=== PATIENT | female | born 1965 | race Caucasian/White ===

== ENCOUNTER → 2018-02-25 21:59 | Outpatient (CLI) | payer OTHER, SELFPAY ==
[2018-01-23 17:47] VITALS: BMI 24.7
[2018-03-03 09:53] LABS: HPV APTIMA, High Risk Positive (Negative)
--- OUTSIDE RECORDS SUMMARY | 2018-04-23 04:48 | XMS RPT_ITS | Clinical Summary ---
:1965 Author Organization [facility], [facility] Address [address] [place] [id number] Phone Care Team Providers Name Role Phone Iris Alexander Unavailable Unavailable Conditions or Problems Problem Name Problem Onset Status Entry Provider Comment Standard Annotate Code Date Date Description Cough, 18654758 Active Vignesh Joseph Chronic cough chronic (SNOMED 06/14 06/[address]) Edema 775074664 Active Vignesh Joseph Edema (SNOMED 06/14 06/[address]) High risk 890410858 Resolved Fabián A Long-term drug meds long (SNOMED 06/03 06/03 Sara therapy term use CT) DO High risk 753163457 Removed Fabián A Long-term drug meds long (SNOMED 06/03 06/03 Sara therapy term use CT) DO 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 Screening for 452319486 Active Fabián A Screening for breast cancer (SNOMED Sara malignant CT) DO neoplasm of breast Hypothyroidis 87556113 Active Fabián A Hypothyroidism m (SNOMED 10/20 10/[address]) DO Systemic 12845523 Active Fabián A Systemic lupus lupus (SNOMED 10/20 10/[address]) DO Medications Medication Instructions Start Stop Generic Name NDC Provider Date Date FLOVENT HFA 2 puffs twice FLUTICASONE 16473797132 Sia 44 MCG/ACT daily /20 PROPIONATE HFA S Page AERO HORSE WRANGLER BREO ELLIPTA One puff INH every FLUTICASONE 68951565449 Vignesh Joseph 200-25 FUROATE-VILANTEROL Mk MCG/INH AEPB PREDNISONE 20 Take 3 tablets by PREDNISONE 72972617757 Vignesh W MG TABS mouth daily for 06/19 Mk days. SYNTHROID 75 daily LEVOTHYROXINE 65736858815 Fabián A MCG TABS /23 SODIUM Sara DO PLAQUENIL 200 daily HYDROXYCHLOROQUINE 35454741396 Fabián A MG TABS /23 SULFATE Sara DO PLAQUENIL 200 daily HYDROXYCHLOROQUINE 20642612422 Iris L MG TABS /23 05/31 SULFATE [place] FLUCONAZOLE One tab; july 2016 FLUCONAZOLE 59866864267 Iris L 150 MG TABS repeat in 3 [place] if needed FLUCONAZOLE One tab; july 2016 FLUCONAZOLE 84284577002 Shelly A 150 MG TABS repeat in 3 06/14 Yensho [facility] if needed PREDNISONE 10 Two tabs daily for PREDNISONE 11365379717 Iris L MG TABS one week, then [place] tab daily for one week, then 1/2 tab daily PREDNISONE 10 Two tabs daily for PREDNISONE 75055296654 Vannessa M MG TABS one week, then 09/18 Shun tab daily for one week, then 1/2 tab daily FLOVENT HFA FLUTICASONE 72354224938 Iris L 44 MCG/ACT /20 PROPIONATE HFA Alvord AERO VITAMIN D3 600 mg daily CHOLECALCIFEROL 86938979642 Fabián A CAPS /23 CAPS Sara DO DOCUSATE daily DOCUSATE SODIUM 30533815792 Fabián A SODIUM 100 MG /23 Sara TABS DO B COMPLEX daily B COMPLEX VITAMINS 73179854769 Fabián A CAPS /23 Sara DO VIACTIV daily CALCIUM-VITAMIN 05766293111 Fabián A 500-500- D-VITAMIN K Sara MG-UNT-MCG DO CHEW VIACTIV daily CALCIUM-VITAMIN 96753669739 Iris L 500-500-40 /05/31 D-VITAMIN K [place] MG-UNT-MCG CHEW CALCIUM 50 mg daily CALCIUM 24704032913 Fabián A CITRATE-VITAM CITRATE-VITAMIN D Sara IN D3 LIQD LIQD DO CALCIUM 50 mg daily CALCIUM 09874550497 Iris L CITRATE-VITAM /23 05/31 CITRATE-VITAMIN D [place] IN D3 LIQD LIQD FISH OIL CAPS 3,000 mg daily OMEGA-3 FATTY ACIDS 11352226193 Fabián A /23 CAPS Sara DO FISH OIL CAPS 3,000 mg daily OMEGA-3 FATTY ACIDS 61681401945 Iris L /05/31 CAPS [place] IBUPROFEN 800 mg 1-2 daily IBUPROFEN TABS 94379005887 Fabián A TABS as needed Sara DO IBUPROFEN 800 mg 1-2 daily IBUPROFEN TABS 97286289516 Iris L TABS as needed 05/31 [place] PYRIDIUM TABS as needed PHENAZOPYRIDINE HCL 77174135603 Fabián A / TABS Sara DO PYRIDIUM TABS as needed PHENAZOPYRIDINE HCL 48442618849 Iris L /05/31 TABS [place] CYSTEX TABS as needed METHENAMINE-SODIUM 57367947302 Fabián A SALICYLATE TABS Sara DO CYSTEX TABS as needed METHENAMINE-SODIUM 50400011548 Iris L /23 05/31 SALICYLATE TABS [place] FOLIC ACID daily FOLIC ACID 20157351995 Fabián A 800 MCG TABS / Sara DO VITAMIN D3 daily CHOLECALCIFEROL 18745964250 Iris L 1000 UNIT / [place] CAPS DOCUSATE One cap daily DOCUSATE CALCIUM 72778193196 Iris L CALCIUM 240 /21 [place] MG CAPS VITAMIN B-12 daily CYANOCOBALAMIN 74394564198 Iris L 500 MCG TABS / [place] BORAGE OIL One cap daily BORAGE (BORAGO 47504517294 Iris L 1000 MG CAPS / OFFICINALIS) [place] CALCIUM daily CALCIUM ASCORBATE 29712781760 Iris L ASCORBATE 500 /21 [place] MG TABS KELP TABS 41 mg daily KELP TABS 77560815421 Iris L /21 [place] MAGNESIUM One cap daily MAGNESIUM OXIDE 76371294080 Iris L OXIDE 400 MG /21 [place] CAPS OMEGA-3 CAPS docosahexaenoic DOCOSAHEXAENOIC 21471528705 Iris Paige acid 120mg/ ACID-EPA [facility] Eicosapentaenoic acid 180mg [facility] GLUCOSAMINE-C 1100mg daily GLUCOSAMINE-CHONDRO 02167317465 Iris Paige HONDROITIN-MS ITIN-MSM CAPS Alvord M CAPS Medications Administered No information available. Allergies, Adverse Reactions, Alerts Allergy Name Reaction Description Start Date Severity Status Provider PLAQUENIL Toxic level in her body. Critical Active Fabián Milvia Ruiz DO Results Date Name Value Unit Range Flag Description Lab Report: (P) Urinalysis, Complete SPEC GR URIN 1.010 1.002-1.030 specific gravity, urine Replaced Document: (P) CBC W/Diff, Automated ABS LYMPHOCY 1.76 X10 3/UL 10*3/uL 0.83-4.51 Absolute Lymphocytes ABS PMNS 6.5 X10 3/UL {Cells}/uL 2.0-7.7 Absolute Neutrophil count Lab Report: Comprehensive Metabolic Profil ANION GAP 6 5-15 anion gap, serum CO2 30.0 mmol/L 21.0-32.0 carbon dioxide, venous blood CHLORIDE 102 mmol/L 98-107 chloride, serum POTASSIUM 3.7 mmol/L 3.5-5.1 potassium, serum SODIUM 138 mmol/L 136-145 sodium, serum BILI TOTAL 0.60 mg/dL 0.00-4.00 bilirubin, serum, total SGPT (ALT) 25 U/L 12-78 alanine aminotransferase (SGPT), serum ALK PHOS 44 U/L 50-136 LL alkaline phosphatase, serum SGOT (AST) 18 U/L 15-37 aspartate aminotransferase (SGOT), serum CALCIUM 9.2 mg/dL 8.5-10.1 calcium, serum A/G RATIO 1.2 RATIO 0.9-2.4 albumin/globulin ratio, serum GLOBULIN TOT 3.5 g/dL 2.7-4.2 globulins, serum, total ALBUMIN 4.2 g/dL 3.4-5.0 albumin, serum PROTEIN, TOT 7.7 g/dL 6.4-8.2 protein, total, serum BUN/CREAT 12.9 RATIO 10-20 urea nitrogen/creatinine ratio, serum GFRAA 115 mL/min >60 Glomerular Filtration rate GFR EST 95 mL/min >60 estimated glomerular filtration rate CREATININE 0.7 mg/dL 0.6-1.0 creatinine, serum BUN 9 mg/dL 7-18 urea nitrogen, blood GLUCOSE SER 82 mg/dL 70-110 blood glucose Lab Report: CRP CRP SQ < 2.90 0.0-3.0 C Reactive Protein, semiquantitative result Lab Report: Erythrocyte Sed Rate ESR 3 mm/h 0-20 erythrocyte sedimentation rate Replaced Document: (P) Hepatitis ABC Profile ANTI-HBC Negative Negative hepatitis B core antibody, total ANTI-HAV IGM Negative Negative hepatitis A antibody, IgM Pathology Report: Cytology, Body Fluid / CSF CristobalZ-GE-susank SEE PATHOLOGY REPORT GE use only - for [employer] import when terms are not otherwise specified Lab Report: CBC W/Diff, Automated LYMPHCT AUTO 1.52 X10 3/UL 10*3/mm3 0.83-4.51 lymphocyte count, blood, automated ANC 3.9 X10 3/UL 10*3/mm3 2.0-7.7 neutrophil count, blood IMM GRANU % 0.200 % 0.0-0.9 immature granulocytes, percentage of total cells, blood BASOPHIL % 0.3 % 0-1 basophils as percent of blood leukocytes EOSINOPHIL % 0.9 % 0-5 eosinophils as percent of blood leukocytes MONOCYTE % 6.5 % 0-10 monocytes as percent of blood leukocytes LYMPHS % 25.9 % 19-41 lymphocytes as percent of blood leukocytes PMN % 66.2 % 47-70 neutrophils as percent of blood leukocytes MPV 12.0 fL 6.2-12.0 mean platelet volume PLATELETS 205 10*3/mm3 150-450 platelet count RDW-SD 48.6 fL 35.1-43.9 H red blood cell distribution width, size density RDW 13.7 % 11.6-14.6 red blood cell distribution width MCHC RBC 32.5 G/GL g/dL 32-36 mean corpuscular hemoglobin concentration, RBC MCH 31.7 pg 27.0-32.0 mean corpuscular hemoglobin, RBC MCV 97.4 fL 81-99 mean corpuscular volume, RBC HCT 41.2 % 37-47 hematocrit, blood HGB 13.4 g/dL 12.0-15.0 hemoglobin, blood RBC M/UL 4.23 10*6/uL 4.2-5.4 red blood count WBC BLOOD 5.9 10*9/L 4.4-11.0 leukocyte (white blood cells) count, blood Lab Report: ,Serum,hCG Quali. BETA-HCG QL NEGATIVE 0-9 Nonpreg beta HCG, serum, qualitative BETA-HCG QN < 1 mIU/mL m[iU]/mL =>Qualitative beta HCG, serum, quantitative Office Visit: new patient, cough FALLRSKASSES No Fall risk assessment Office Visit: chronic cough MEDS REVIEW Done Documentation of current medications (procedure) ORALTOBACUSE Never Tobacco smoking status NHIS SMOK STATUS Never smoker Tobacco use [facility] Plan of Care Type Date Detail Appointment 01:00 PM Vignesh Terrazas, [address], [address], [place], [address] Pending order Follow Up Appt [address] Chest without contrast Pending order Echo Complete with Color Flow Pending order Follow Up Appt 3 months Pending order Mammogram, Screening, both breasts Pending order *CBC with Differential Pending order *TSH Pending order *CBC with Differential Pending order *CMP Complete Metabolic Panel Pending order X-Ray, Chest, PA & Lateral Pending order Hepatitis Panel Pending order *PREGS - Qualitative, Serum Pending order *CRP - C-Reative Protein Pending order *ASHLEY Pending order *Sedimentation Rate (ESR) Pending order *UAC- Urinalysis, Complete w/ Micro Pending order Mammogram, Screening, both breasts Pending order *CBC with Differential Pending order *TSH Pending order Follow Up Appt 1 year Procedures Code Procedure Name Date Entry Date 3016-3 *TSH 0184-1 *CBC with Differential 0270-1 *ASHLEY 0184-1 *CBC with Differential 0786-1 *CMP Complete Metabolic Panel CPT-35333 X-Ray, Chest, PA & Lateral CPT-33412 Hepatitis Panel 2118-8 *PREGS - Qualitative, Serum 55856-2 *CRP - C-Reative Protein 00212-0 *Sedimentation Rate (ESR) 01571-2 *UAC- Urinalysis, Complete w/ Micro CPT-26812 Mammogram, Screening, both breasts 3016-3 *TSH 0184-1 *CBC with Differential Vital Signs Date Name Value Unit Description BMI (Body Mass Index) 24.87 kg/m2 Body Mass Index [Ratio] Body Temperature 97.5 [degF] temperature E&M BP Diastolic 78 mm[Hg] blood pressure, diastolic - 8462-4 BP Systolic 116 mm[Hg] blood pressure, systolic - 8480-6 Heart Rate 59 /min pulse rate E&M - 8867-4 Height 62 [in_us] height E&M - 8302-2 O2 % BldC Oximetry 98 % oxygen saturation, oximetry Respiratory Rate 18 /min respiratory rate E&M - 9279-1 Weight Measured 136 [lb_av] weight E&M - 3141-9
--- OUTSIDE RECORDS SUMMARY | 2018-04-23 04:49 | XMS RPT_ITS ---
:1965 Author Organization OHIP Care Team Providers Name Role Phone Danilo Ugarte Attending Unavailable Danilo Ugarte Referring Unavailable Fabián Ruiz Primary Care Unavailable Vignesh Terrazas Attending Unavailable Fabián Ruiz Referring Unavailable Fabián Ruiz Primary Care Unavailable Fabián Ruiz Attending Unavailable Fabián Ruiz Referring Unavailable SaraFabián woods Primary Care Unavailable López Villalobos Attending Unavailable Fabián Ruiz Referring Unavailable Danilo Ugarte Attending Unavailable Fabián Ruiz Primary Care Unavailable PROBLEMS PROBLEMS DATE TYPE CONDITION / CODE ATTENDING STATUS SOURCE 02/25/2018 Unknown Z12.4 - Encounter Danilo Ugarte Active [facility] for screening for Community malignant neoplasm Hospital of cervix / Repository Z12.4(ICD-10) 01/25/2018 Unknown B02.9 - Zoster López Villalobos Active [facility] without Community complications / Hospital B02.9(ICD-10) Repository 01/25/2018 Unknown S05.02XA - Injury López Villalobos Active [facility] of conjunctiva and Community corneal abrasion Hospital without foreign Repository body, left eye, initial encounter / S05.02XA(ICD-10) 03/19/2017 Unknown J45.909 - Vignesh Terrazas Active [facility] Unspecified asthma, Community uncomplicated / Hospital J45.909(ICD-10) Repository PROCEDURES PROCEDURES No Procedure Records FoundRESULTS RESULTS CERVICAL Observed: 03/12/2018 Status: F Source: [facility] 3:35 PM [facility] HOSPITAL REPOSITORY Patient: CHASITY NIETO : 1965 (52/F) Acct Num: [id number] Phys: Torito TAYLOR,[facility] Unit Num: [id number] Loc: LABSPEC Specimen: [id number] Received: 03/12/181906 Spec Type: CERV TISSUES 1 TISSUES: A. Uterine cervix, NOS B. Endocervical COMMENT A. Results from immunohistochemistry ([id number]) for surrogate HPV marker (p16) will be reported separately. Case has been reviewed in consultation with Dr. Gtz who concurs with the above diagnosis. IDC:LIZ GROSS DESCRIPTION A - Received in fixative is one container labeled with the patient's name and designated cervical biopsy 6 o'clock. The specimen consists of multiple irregular fragments of light underwood soft tissue that in aggregate measure 1 x 0.5 x 0.1 cm. The specimen is totally submitted in one cassette. B - Received in fixative is one container labeled with the patient's name and designated ECC. The specimen consists of multiple fragments of hemorrhagic mucoid tissue that in aggregate measure 2 x 1.5 x 0.1 cm. The specimen is totally submitted in one cassette. / LIZ:balwinder 03/13/18 TC: 56450 CPT: 40157 x2 HEADER OPERATION: Colposcopy PRE-OP DIAGNOSIS: Pap ASCUS, HPV HR positive 02/25/18 TISSUE SUBMITTED: A - Cervical biopsy 6 o'clock, B - ECC MICROSCOPIC DESCRIPTION Slides are reviewed. MICROSCOPIC DIAGNOSIS A. Cervix at 6 o'clock, biopsy: Focal HPV change, ARIANA I (LSIL) present. Mild chronic inflammation. See comment. B. Endocervix, curettings: Benign superficial endocervix. Detached squamous epithelial cells with focal changes of viral cytopathic effect. AM:balwinder 03/16/18 Signed Mitch Loaiza, 03/17/18 <signature on file> Performed By: #### PCER #### [facility] [address] [place] [address]. [place], [place], [id number] IMMUNOHISTOCHEMISTRY Observed: 03/12/2018 Status: F Source: [place] 12:00 AM [facility] REPOSITORY Patient: CHASITY NIETO : 1965 (52/F) Acct Num: [id number] Phys: Torito TAYLOR,Danilo Unit Num: [id number] Loc: LABSPEC Specimen: [id number] Received: 03/16/181155 Spec Type: IMMUNO TISSUES 1 TISSUES: A. Uterine cervix, NOS SPECIMEN INFORMATION: Tissue Source: A - Cervical biopsy 6 o'clock Clinical Info: ASCUS, HPV HR positive Specimen Number: [id number] CPT code: 44756, 32382 METHODOLOGY: Deparaffinized sections of prefer/formalin-fixed tissue or PAP/DQ stained slides are incubated with monoclonal/polyclonal antibodies/oligonucleotide probes. Localization is made via biotin free immunoperoxidase method. Appropriate controls are performed and reacted as expected. Results on target cell population are indicated in the following table: RESULTS: ANTIBODY / CLONE RESULT Block A P16 (E6H4) positive, focal, patchy Ki-67 (30-9) positive, low, focal These tests were developed and their performance characteristics determined by [facility]. They may not have been cleared or approved by the U.S. Food and Drug Administration. The FDA has determined that such clearance or approval is not necessary. INTERPRETATION: A. Cervix, 6 o'clock, biopsy: Consistent with mild squamous dysplasia, ARIANA I ( LSIL). AM:balwinder 03/17/18 PHYSICIAN AND INSTITUTION [address] [address] Signed Mitch DO Fadia 03/17/18 <signature on file> Performed By: #### PIMM #### [facility] [address] [place], [address] SCREENING MAMM (CAD), Observed: 02/28/2018 Status: F Source: [place] BILAT 9:01 AM [facility] HOSPITAL REPOSITORY [facility] Imaging Services [address] [place] [address] SCREENING MAMM (CAD), BILAT MR#: [id number] Acct: [id number] Name: CHASITY NIETO Rep #: [id number] : 1965 F 52 From: Chapo Arias MD PCP: Fabián Ruiz DO Status: REG CLI Study: SCREENING MAMM (CAD), BILAT Date of Exam: 02/28/18 Exam# [id number] Ordering Dr: Fabián Ruiz DO MAMMOGRAPHY - BILATERAL SCREENING REASON FOR EXAM: Female, 52 years old. Routine annual screening examination. PERTINENT HISTORY: Non-contributory. TECHNIQUE: Digital bilateral breast patrick (3D mammographic acquisition) in the CC and MLO projections. 2-D mediolateral oblique (MLO) and craniocaudad (CC) views of both breasts were obtained. CAD: Full Field Digital Mammography with Computer Added Detection was performed. COMPARISON: Comparison is made with prior study dated October 18, 2016 and August 23, 2015. FINDINGS: Breast Composition: There are scattered areas of fibroglandular density. There are no dominant masses or suspicious calcifications. No other significant abnormalities are identified. There has been no significant change since the prior study. BI/SCREENING MAMM (CAD), BILAT IMPRESSION: Stable bilateral screening mammogram. Yearly follow-up mammogram recommended. (A) ASSESSMENT CATEGORY: BIRADS Category 1: Negative. A letter regarding these results will be sent to the patient by the facility within 30 days. Approximately 10% of breast cancers are not detected by mammography. A normal mammogram should not delay biopsy of a clinically suspicious abnormality. [id number] Electronically Signed: Chapo Arias MD at 9:25 EST Tel [phone], Service support , CC: Fabián Ruiz DO Overhead Line Worker: Signed PAP IG HPV HR Collected: 02/25/2018 Status: F Source: [place] KNAPP 4:00 PM [facility] REPOSITORY Order Comment: CYTOLOGY INFORMATION: - CLINICAL INFORMATION: - DATE LMP/MENOPAUSE: 12/18/17 LMP - COLLECTION VIAL: Thin Prep Vial - REGIONAL FACILITIES SPECIALIST SOURCE: CERVICAL/ENDOCERVICAL - COLLECTION TECHNIQUE: BRUSH/SPATULA Specimen Comment: [id number] Specimen Comment: Source.............Cervix;Endocervix Specimen Comment: LMP / Prev Treat...[id number] Specimen Comment: No. of containers..01 ThinPrep Vial TYPE CODE TESTS RESULT OUT OF REFERENCE UNITS RANGE LAB L7400.0800 . High DIAGN Comment Result Comment: EPITHELIAL CELL ABNORMALITY. ATYPICAL SQUAMOUS CELLS OF UNDETERMINED SIGNIFICANCE. LAB L7400.0900 . Normal ADEQ Comment Result Comment: Satisfactory for evaluation. Endocervical and/or squamous metaplastic cells (endocervical component) are present. LAB L7400.1400 . Normal PERFORM Comment Result Comment: Nalini Hickey, Electronics Engineering Manager (ASCP) LAB L7400.1700 . Normal SIGN Comment Result Comment: Valeria Carpenter MD, Pathologist LAB L7400.1720 . Normal Path prov. Comment ICD9 Result Comment: R87.610 LAB L7400.2575 . Normal TEST METHOD Comment Result Comment: This liquid based ThinPrep(R) pap test was screened with the use of an image guided system. LAB L7400.2600 . Normal . COMM LAB L7400.2700 . Normal PAPSMR Comment Result Comment: The Pap smear is a screening test designed to aid in the detection of premalignant and malignant conditions of the uterine cervix. It is not a diagnostic procedure and should not be used as the sole means of detecting cervical cancer. Both false-positive and false-negative reports do occur. LAB L7400.2760 Negative High HPV APTIMA, HR Positive Result Comment: This test detects fourteen high-risk HPV types (16/18/31/33/35/39/45/ 51/52/56/58/59/66/68) without differentiation. Performed at: - [facility] [id number] Dance Entertainer: Rukhsana Miller MD, Phone: [phone] Performed at: = - [facility] [address] [id number] Dance Entertainer: Rukhsana Miller MD, Phone: [phone] Performed By: #### L7400.0377 #### [facility] (refer to report for specific site) refer to report for address and phone number URGENT CARE VISIT Observed: 01/23/2018 Status: F Source: [facility] REPORT 6:29 PM [facility] REPOSITORY [facility] [address] [place] [address] OFFICE VISIT Date of Service: 01/23/18 MR#: [id number] Acct: [id number] Name: CHASITY NIETO Rep #: [id number] : 1965 Provider: López AUGUSTE Age/Sex: 52/F Location: [facility] Status: Signed Intake Vital Signs01/23/18 Height 5 ft 2 in Intake Visit Reasons: L EYE Allergies hydroxychloroquine [From Plaquenil] Allergy (Mild, Verified 01/23/18 17:48) Medications Levothyroxine [Synthroid] 75 mcg PO DAILY 02/08/15 [History Confirmed 01/23/18] acyclovir 800 mg tablet 800 mg PO Q4H 7 Days #42 tab 01/23/18 [Rx Confirmed 01/23/18] sulfacetamide sodium 10 % eye drops 1 drp OPHTHALMIC (EYE) Q4H 7 Days #15 ml 01/23/18 [Rx Confirmed 01/23/18] PFSH Medical History Lupus (Chronic) Asthma (Chronic) Annette's thyroiditis (Chronic) Fibromyalgia (Chronic) Systemic lupus erythematosus (Chronic) Hypothyroidism (Chronic) Macular degeneration (Chronic) Edema (Chronic) Chronic cough (Chronic) Anemia (Acute) Heart murmur (Acute) Surgical History History of endoscopy (Resolved) History of tubal ligation (Resolved) History of tonsillectomy and adenoidectomy (Resolved) history of cystoscopy/dilation (Resolved) History of dilatation and curettage (Acute) Family History Father Heart disease Hypertension Thyroid disorder Brother Hypertension Thyroid disorder High cholesterol Mother Cancer CLL Social History Smoking Status: Never smoker second hand exposure: No alcohol intake: current alcohol intake frequency: 0-2 drinks per day Alcohol type: wine, beer substance use type: does not use caffeine: Yes (4/day) what type of physical activity do you participate in: bicycling, aerobics frequency: daily HPI HPI Details: CHASITY NIETO, is a 52 F who presents to the office today for complaint of a stye to the left eye which has over the past 12 hours increasingly become irritated with itching and irritation to the left side of the face as well starting today. Patient states that the stye appeared approximately 3-4 days ago which she has been treating with warm compresses to no relief. She states that today her upper eyelid has become more red and swollen as well as having developed irritation to the left side of her face just lateral to her left eye. 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 She does have a pertinent past medical history of lupus as well as Annette's thyroiditis and is therefore immunocompromised. She denies any vision change or loss however does state that her eyes irritated. She reports that she has been rubbing her eye quite a bit today however denies any feeling of foreign body. She has not noticed any blistering or open areas to the left side of her face. She denies any hearing change, loss or numbness/tingling to the left side of her face. No other associated symptoms or alleviating/aggravating factors. ROS Const Constitutional: No chills, fever(s), weakness, abnormal sleep pattern, fatigue or headache(s) Eyes Eyes: Positive for eye pain (Left upper eyelid irritation due to stye.); no change in vision, blurry vision, discharge, spots in vision or visual disturbances ENT ENT: No ear pain, ear discharge, abnormal hearing, hearing loss, nasal congestion, nasal discharge, sore throat or headache(s) Resp Respiratory: No shortness of breath or chest congestion Cardio Cardiology: No chest pain at rest, chest pain with exertion or shortness of breath Musc Musculoskeletal: No numbness or tingling Skin Skin: Positive for itching and redness; no wounds or lesions Neuro Neurology: No weakness, dizziness, abnormal speech, abnormal movements, unsteady gait/balance, loss of vision, behavioral changes, confusion, visual disturbances, abnormal hearing, headache(s), numbness or tingling Psych Psychiatric: No abnormal sleep pattern, No behavioral changes, No confusion Endo Endocrine: No fatigue Aller/Imm Allergy/Immunologic: Positive for itchy eyes Exam Const General: cooperative, healthy appearing [facility] Head: normocephalic, atraumatic Ears: hearing grossly normal bilaterally Face and sinus: face symmetric Eyes General: appearance normal, both eyes and all related structures Visual Centeno: normal visual centeno by confrontation Alignment and Position: alignment normal Periorbital: periorbital findings normal Eyelids: eyelids normal Conjunctivae: conjunctivae normal Cornea: corneas abnormal on the left fluorescein used, abrasion linear (Linear corneal abrasion just inferior to the pupil over middle iris) and other (No dendritic or other abnormal appearances of the eye with fluorescein stain other than linear abrasion) Pupils: PERRL EOM: EOM intact bilaterally Direct ophthalmoscopy: normal light reflex Resp Effort AND Inspection: normal respiratory effort Auscultation: Bilateral: Clear to Auscultation Cardio Rate: regular rate Rhythm: regular rhythm Heart Sounds: S1 normal, S2 normal Skin General: no rashes or lesions noted Neuro General: alert, awake, oriented x3, gait normal Cranial Nerves: CN's II-XI intact bilaterally Psych Appearance: grossly normal Mental Status: mental status grossly normal Affect: normal affect Assessment AND Plan Problems 1. Herpes zoster without complication B02.9 Status Acute 2. Abrasion of left cornea, initial encounter S05.02XA Status Acute Plan Acyclovir 800 mg 5 times daily times 7 days as well as Bleph- 10 as prescribed today. Patient advised to continue with her appointment that is already scheduled with her nail kegger early next week for further evaluation of her corneal abrasion as well as monitoring for possible zoster ophthalmicus. Patient advised to use a warm compress to the left eye as well as advised of potential red flags and signs of zoster ophthalmicus and when appropriate to report to the ED. Patient verbalized understanding and agreement with all the above. Medications New: acyclovir while awake; give 5 doses in 24 800 mg PO Q4H 7 days 42 tabs 0RF hours Coding Level of Care Code Off vis,est,level 4 Diagnoses Herpes zoster without complication B02.9 Herpes zoster complications: without complications Abrasion of left cornea, initial encounter S05.02XA Encounter type: initial encounter 01/23/18 1829 <Electronically signed by López AUGUSTE> Date López AUGUSTE Cosigner Signature: Date (if applicable) CC: PULMONARY VISIT REPORT Observed: 03/19/2017 Status: F Source: [place] 4:20 PM [facility] REPOSITORY [facility] [address] [place] [address] OFFICE VISIT Date of Service: 03/19/17 MR#: [id number] Acct: [id number] Name: CHASITY NIETO Rep #: [id number] : 1965 Provider: Vignesh Terrazas MD Age/Sex: 51/F Location: [facility] Status: Signed Assessment AND Plan 1. Moderate persistent asthma without complication J45.40; J45.40; J45.40 Plan Clinical suspicion for dust allergy leading to exacerbation of asthma type symptoms. This is very similar to previous type symptoms that occurred last winter. After review of the risks, benefits and alternatives, patient will be stepped up in therapy to a combination inhaler with Breo. Signs and symptoms of exacerbation were reviewed in detail. Discontinue Flovent. Initiate Breo. 2. Chronic cough R05 Plan Patient has noted significant worsening in cough over the last 2-3 weeks. Patient may have had some exacerbation with D AND C secondary to mechanical stimulation leading to bronchospasm. Patient will be stepped up in therapy as mentioned in the asthma plan. Step up in asthma therapy. Medications New: albuterol sulfate HFA 90 mcg/actuation (Vento2 puffs Inhalation Q6H shortness of breath o guanaco HFA) administer with spacer r wheezing 3. Systemic lupus erythematosus with glomerular disease, unspecified SLE type M32.14; M32.14; M32.14; M32.14; M32.14 Plan Patient currently being monitored clinically. Patient is not on any immunosuppression. Patient was on Plaquenil in the past, but this had to be discontinued secondary to eye toxicity. Patient is also been used on prednisone in the past. Last year, patient had a CT scan of the chest to evaluate for interstitial lung disease, which was negative. Pulmonary function test in the past was consistent with asthma and showed no restriction. After review of the risks, benefits alternatives, patient does not believe that testing needs to be repeated at this time. I agree with her assessment. Continue to monitor clinically. Plan Detail Other Medications New: fluticasone-vilanterol 200-25 mcg/dose (Breo Ellipta) aft1 inh Inhalation Q24H J45.909 er inhalation, rinse mouth with water and spit out; do not s wallow Discontinued: fluticasone 44 mcg/actuation Discontinued Reason: Order Change2 puffs Inhalation BID d Follow Up 6 Months (A) HPI 6 M FU: Chief Complaint: Cough Details: Blood or on my last patient is a 51-year-old female, currently in the care of Dr. Ruiz, who presents for evaluation secondary to chronic cough. Since last visit, patient denies any ER visits or prednisone burst. Patient does report that she had a D AND C but did require general anesthesia. Patient states that after surgery she noted increased cough. Patient has initiated Zyrtec with significant improvement in cough, but still coughs on a daily basis. Patient reports exacerbating factors as physical activity and dry/cold air. Patient states this is significantly similar to her symptomatology last winter. Patient denies any concomitant sinus congestion or postnasal drip. Patient has been reporting hoarseness, typically at the end of the day. Patient attributes this to her cough, but otherwise denies any other complications outside of a minor sore throat. Patient has used [id number] medications with no improvement. Patient estimates that she has been using her albuterol rescue 2-3 times per week recently, which is a significant increase from her baseline. Patient reported that over the summer she was doing well and able to resume her normal exercise routine. Intake Vital Signs03/19/17 Height 5 ft 2 in 03/19/17 Weight: 61.235 kg Intake Visit Reasons: 6 M FU Accompanied by: Self Allergies hydroxychloroquine [From Plaquenil] Allergy (Mild, Verified 03/19/17 12:43) Medications Levothyroxine [Synthroid] 75 mcg PO DAILY 02/08/15 [History Confirmed 03/19/17] Multivitamins,Therapeutic [Multivitamin] 1 tab PO DAILY 02/08/15 [History Confirmed 03/19/17] Vitamin B Complex 1 ea PO DAILY 02/08/15 [History Confirmed 03/19/17] Ascorbic Acid [Vitamin C] 500 mg PO DAILY@0800 01/15/17 [History Confirmed 03/19/17] Cholecalciferol (Vitamin D3) [Vitamin D3] 1,000 unit PO DAILY 01/15/17 [History Confirmed 03/19/17] Hydrocodone/Acetaminophen [[place] 5-325 Tablet] 1 - 2 ea PO Q4H PRN PRN #10 tab 01/20/17 [Rx Confirmed 03/19/17] antiarthritic combination no.2 900 mg tablet mg PO 03/15/17 [History Confirmed 03/15/17] docusate calcium 240 mg capsule 240 mg PO QHS 03/15/17 [History Confirmed 03/15/17] fish oil 400 mg-flaxseed 400 mg-prim,blk department store general manager,borag oils 200 mg capsule cap PO 03/15/17 [History Confirmed 03/15/17] iodine (kelp) tablet tab PO 03/15/17 [History Confirmed 03/15/17] magnesium oxide 400 mg capsule 400 mg PO QDAY cap 03/15/17 [History Confirmed 03/15/17] albuterol sulfate HFA 90 mcg/actuation aerosol inhaler 2 puff INHALATION Q6H #8 g 03/19/17 [Rx Confirmed 03/19/17] fluticasone 200 mcg-vilanterol 25 mcg/dose powder for inhalation 1 inh INHALATION Q24H #28 ea 03/19/17 [Rx Confirmed 03/19/17] Review of Systems Const CONSTITUTIONAL: Positive fatigue; negative anorexia, body ache, chills, daytime sleepiness, fever(s), night sweats, oral thrush, stops breathing during sleep, weight loss, sleeping in chair, weight loss, weight gain, frequent colds, seasonal allergies, other, headache(s) or orthopnea EETM Ear Nose Throat Mouth: Positive hearing normal and sore throat; negative hard of hearing, hoarseness, dry mouth in morning, change in vision, itchy eyes, eye pain, swallowing Difficulty, ear pain, nose bleed, headache(s), mouth pain, nasal congestion, nasal discharge, post nasal drip, sinus pain, sinus pressure or other Cardio Cardiovascular: Negative chest pain, chest pain at rest, chest pain with activity, irregular heart rhythm, edema, shortness of breath when lying down, palpitations, murmur or other Resp Respiratory: Positive chest congestion, cough and inhalers; negative as per HPI, shortness of breath, pain with cough, wheezing, chest tightness, pain on inspiration, increase use of rescue inhalers, snoring, apnea or other Gastro Gastrointestional: Negative bloody stools, change in appetite, difficulty swallowing, reflux, hematemesis, melena stool, loose stool, constipation or other Genitourinary: Negative blood in urine, nocturia, pain with urination or other Musc Musculoskeletal: Negative body pain, back pain, neck pain or other Skin/Breast Skin/Breast: Negative dry skin, itching, rash, unusual bruising, breast lump or other Neuro Neurological: Negative restless legs, confusion, weakness or other Psych Psychocological: Negative abnormal sleep pattern, anxiety, thoughts of hurting self/others, hopelessness or other Lymph Lymphatic: Negative easy bleeding, easy bruising, swollen lymph nodes or other Exam Const Constitutional: Positive conversant, cooperative, in no acute respiratory distress, healthy appearing, well developed, well nourished and good hygiene Head Head: Positive normocephalic and atraumatic; negative cyanosis of lips/distal nose, microcephalic, macrocephalic, frontal sinus tenderness or maxillary sinus tenderness Eyes Eye: Positive clear conjunctiva; negative nystagmus, scleral abnormality or cataract present Ears Ear: Positive hearing normal and external ears normal; negative hard of hearing Nose Nose: Positive external nose normal, nasal polyp and no nasal discharge; negative epistaxis Mouth Mouth: Positive oral mucosae normal, no lesions and good dentition; negative post nasal drip or oral thrush present Mallampati Score: I: Mallampati Score Neck Neck: Positive normal visual inspection and trachea midline; negative lymphadenopathy or JVD Chest Wall Chest: Positive normal inspection of the chest and symmetric chest movement; negative increased A/P diameter, crepitus or tenderness Resp lung sounds: Positive clear to auscultation, good air exchange and wheeze present on forced exhalation; negative wheezes, rhonchi or rales Cardio Cardiac: Positive regular rate, regular rhythm, S1 normal and S2 normal; negative murmur, rub or gallop GI GI: Positive normal to inspection and normal bowel sounds; negative distended or ascites Genitourinary: Positive deferred Musc Musculoskeletal: Positive steady gait; negative using an assistive device for ambulation, kyphosis or scoliosis Skin Pulmonary Skin Exam: Positive intact; negative rash, lesion or ulcers Pulses Pulse: Positive radial pulses present Extremities Extremities: Positive capillary refill normal; negative clubbing, cyanosis or edema Neuro Neurologic: Positive conversant, no focal neuro deficits, cooperative, normal cognition, normal coordination, normal concentration and understands questions Lymph Lymphatic: Negative lymphadenopathy, tenderness or cervical adenopathy Psych Appearance: Positive grossly normal Mental Status: Positive mental status grossly normal Mood: Positive congruent mood Affect: Positive normal affect 03/19/17 1620 <Electronically signed by Vignesh Terrazas MD> Date Vignesh Terrazas MD Cosigner Signature: Date (if applicable) CC: Fabián Ruiz DO ALLERGIES ALLERGIES DATE TYPE / CODE NAME / CODE REACTION SEVERITY SOURCE 01/23/2018 Drug hydroxychlor [place] [facility] Allergy/4160 oquine/F0060 [facility] 87221(SNOMED 20447(RXNORM Repository CT) ) ENCOUNTERS ENCOUNTERS ADMIT/DISCHARGE ACCOUNT ADMITTING ENCOUNTER LOCATION SOURCE NUMBER CLASS 03/12/2018 [id number] [facility] 9 [facility] ing:LABSPEC Repository 02/28/2018 [id number] Ambulatory Ambika [place] 7 [facility] ing:OPBI Repository 02/25/2018 [id number] Ambulatory [place] Ambika 7 [facility] ing:LABSPEC Repository 01/23/2018/ [id number] Ambulatory BMSBuilding:B Ambika 8 8 MS.NOW [facility] Repository 03/19/2017/ [id number] Ambulatory BMSBuilding:B [place] 7 5 MS.[facility] [place] [place] Repository PAYERS PAYERS ENCOUNTER GUARANTOR PAYER SUBSCRIBER SOURCE 03/12/2018 CHASITY J [id number] Primary CHASITY J KINGDOB: [place] Insurance:MEDICAL [id number] [address]Nou: (330) Number: Repository [phone] () [id number] Date:7532-65-25XZ [address] [place], [place] [address]WP: 03/12/2018 Secondary NOT GIVENUNK [place] Insurance:SELF PAY [facility] ([place], [place]) Number: Effective Repository Date:2018-03-12 02/28/2018 CHASITY J [id number] Primary CHASITY J KINGDOB: [place] Insurance:MEDICAL [id number] [address]Xsz: (330) Number: Repository [phone] () [id number] Date:1814[place]30-[place] [address]WP: 02/28/2018 Secondary NOT GIVENUNK Ambika Insurance:SELF PAY [facility] ([place], [place]) Number: Effective Repository Date:2017-12-24 02/25/2018 CHASITY J [id number] Primary CHASITY J KINGDOB: [place] Insurance:MEDICAL [id number] [address]Onk: (330) Number: Repository [phone] () [id number] Date:2468-25-21HO [address] [place], [place] [address]: 02/25/2018 Secondary NOT GIVENUNK Ambika Insurance:SELF PAY [facility] ([place], [place]) Number: Effective Repository Date:2018-02-25 01/23/2018 CHASITY J [id number] Primary CHASITY MORRISB: [place] Insurance:MEDICAL [id number] [facility] [address] [facility] [address]Ekm: 330) Number: Repository [phone] () [id number] Date:1762-92-10HA [address], [place] [address]OL: 01/23/2018 Secondary NOT GIVENUNK [place] Insurance:SELF PAY [facility] ([place], [place]) Number: Effective Repository Date:2018-01-23 03/19/2017 CHASITY [id number] Primary Adis NietoB: [place] Insurance:AETNAPolicy [id number] [facility] [address], Number: [facility] [address]Yuh: (910) [id number] Repository [phone] () Date:9514-29-24BC [address] [place] [address]EP: 03/19/2017 Secondary NOT GIVENUNK [place] Insurance:SELF PAY [facility] ([place], [place]) Number: Effective Repository Date:2017-03-05
--- OUTSIDE RECORDS SUMMARY | 2018-04-23 04:49 | XMS RPT_ITS | Clinical Summary ---
:1965 Author Organization [employer] [facility], [facility] Address [address] [place] [address] Phone Care Team Providers Name Role Phone Shelly Barrera LPN Unavailable Unavailable Conditions or Problems Problem Name Problem Onset Status Entry Provider Comment Standard Annotate Code Date Date Description Cough, 74955134 Active Vignesh Joseph Chronic cough chronic (SNOMED 06/14 06/[address]) Edema 235659927 Active Vignesh W Edema (SNOMED 06/14 06/[address]) High risk 500918496 Resolved Fabián A Long-term drug meds long (SNOMED 06/03 06/03 Sara therapy term use CT) DO High risk 981653631 Removed Fabián A Long-term drug meds long (SNOMED 06/03 06/03 Sara therapy term use CT) DO 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 Screening for 870539773 Active Fabián A Screening for breast cancer (SNOMED Sara malignant CT) DO neoplasm of breast Hypothyroidis 10039969 Active Fabián A Hypothyroidism m (SNOMED 10/20 10/[address]) DO Systemic 59204358 Active Fabián A Systemic lupus lupus (SNOMED 10/20 10/[address]) DO Medications Medication Instructions Start Stop Generic Name NDC Provider Date Date BREO ELLIPTA One puff INH every FLUTICASONE 12254707541 Vignesh Joseph 200-25 FUROATE-VILANTEROL Mk MCG/INH AEPB PREDNISONE 20 Take 3 tablets by PREDNISONE 57792232750 Vignesh W MG TABS mouth daily for 06/19 Mk days. 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 10 Two tabs daily for PREDNISONE 16021599992 Iris L MG TABS one week, then [place] tab daily for one week, then 1/2 tab daily PREDNISONE 10 Two tabs daily for PREDNISONE 52805480231 Vannessa M MG TABS one week, then 09/18 Shun tab daily for one week, then 1/2 tab daily VITAMIN D3 600 mg daily CHOLECALCIFEROL CAPS 75420369412 Fabián A CAPS /23 Sara DO DOCUSATE daily DOCUSATE SODIUM 44324749415 Fabián A SODIUM 100 MG /23 Sara TABS DO B COMPLEX daily B COMPLEX VITAMINS 75211973488 Fabián A CAPS /23 Sara DO VIACTIV daily CALCIUM-VITAMIN 26342219222 Fabián A 500-500- D-VITAMIN K Sara MG-UNT-MCG DO CHEW VIACTIV daily CALCIUM-VITAMIN 72400248155 Iris L 05/31 D-VITAMIN K Benjamin MG-UNT-MCG CHEW CALCIUM 50 mg daily CALCIUM 50590807789 Fabián A CITRATE-VIT CITRATE-VITAMIN D [facility] IN D3 LIQD LIQD DO CALCIUM 50 mg daily CALCIUM 90423018151 Iris L CITRATE-VITAM /23 05/31 CITRATE-VITAMIN D [place] IN D3 LIQD LIQD FISH OIL CAPS 3,000 mg daily OMEGA-3 FATTY ACIDS 29899176378 Fabián A /23 CAPS Sara DO FISH OIL CAPS 3,000 mg daily OMEGA-3 FATTY ACIDS 27168991420 Iris L /05/31 CAPS [place] IBUPROFEN 800 mg 1-2 daily IBUPROFEN TABS 65888877372 Fabián A TABS as needed / Sara DO IBUPROFEN 800 mg 1-2 daily IBUPROFEN TABS 13315795652 Iris L TABS as needed 05/31 [place] PYRIDIUM TABS as needed PHENAZOPYRIDINE HCL 78360333572 Fabián A /23 TABS Sara DO PYRIDIUM TABS as needed PHENAZOPYRIDINE HCL 68836827177 Iris L /05/31 TABS [place] CYSTEX TABS as needed METHENAMINE-SODIUM 77767414501 Fabián A SALICYLATE TABS Sara DO CYSTEX TABS as needed METHENAMINE-SODIUM 90907921931 Iris L /05/31 SALICYLATE TABS [place] FOLIC ACID daily FOLIC ACID 07402510039 Fabián A 800 MCG TABS / Sara DO VITAMIN D3 daily CHOLECALCIFEROL 19145910763 Iris L 1000 UNIT /21 [place] CAPS DOCUSATE One cap daily DOCUSATE CALCIUM 79642554823 Iris L CALCIUM 240 /21 [place] MG CAPS VITAMIN B-12 daily CYANOCOBALAMIN 84657912945 Iris L 500 MCG TABS /21 [place] BORAGE OIL One cap daily BORAGE (BORAGO 31677414620 Iris L 1000 MG CAPS /21 OFFICINALIS) [place] CALCIUM daily CALCIUM ASCORBATE 69767076169 Iris L ASCORBATE 500 /21 [place] MG TABS FLOVENT HFA FLUTICASONE 00761875566 Iris L 44 MCG/ACT /20 PROPIONATE HFA [place] AERO KELP TABS 41 mg daily KELP TABS 30474417228 Iris L /21 [place] MAGNESIUM One cap daily MAGNESIUM OXIDE 65577816028 Iris Paige OXIDE 400 MG /21 [place] CAPS OMEGA-3 CAPS docosahexaenoic DOCOSAHEXAENOIC 95271426973 Iris Paige acid 120mg/ /21 ACID-EPA CAPS [place] Eicosapentaenoic acid 180mg caps GLUCOSAMINE-C 1100mg daily GLUCOSAMINE-CHONDROI 04217442580 Iris Paige HONDROITIN-MS / TIN-MSM CAPS [place] M CAPS Medications Administered No information available. Allergies, Adverse Reactions, Alerts Allergy Name Reaction Description Start Date Severity Status Provider PLAQUENIL Toxic level in her body. Critical Active Fabián Ruiz DO Results Date Name Value Unit [...] Pathology Report: Cytology, Body Fluid / CSF [place] SEE PATHOLOGY REPORT GE use only - [...] serum, quantitative Office Visit: new patient, cough [facility] No Fall risk assessment Office Visit: chronic cough MEDS REVIEW Done Documentation of current medications (procedure) ORALTOBACUSE Never Tobacco smoking status NHIS SMOK STATUS Never smoker Tobacco use [facility] Plan of Care Type Date Detail Appointment 01:00 PM Vignesh Terrazas, [address], [address], [place], [address] Pending order Follow Up Appt 6 months [...] with Differential 0786-1 *CMP Complete Metabolic Panel CPT-32181 X-Ray, Chest, PA & Lateral CPT-61170 Hepatitis Panel 2118-8 *PREGS - Qualitative, Serum 42899-5 *CRP - C-Reative Protein 66394-6 *Sedimentation Rate (ESR) 25432-7 *UAC- Urinalysis, Complete w/ Micro CPT-48262 Mammogram, Screening, both breasts 3016-3 *TSH 0184-1 [...]
--- OUTSIDE RECORDS SUMMARY | 2018-04-23 04:49 | XMS RPT_ITS | Clinical Summary ---
:1965 Author Organization [place] [email or web address] [facility], [facility] Address [address] [place] [address] Phone Care Team Providers Name Role Phone Shelly Barrera LPN Unavailable Unavailable Conditions or Problems Problem Name Problem Onset Status Entry Provider Comment Standard Annotate Code Date Date Description Cough, 37496254 Active Vignesh Joseph Chronic cough chronic (SNOMED 06/14 06/[address]) Edema 515954923 Active Vignesh W Edema (SNOMED 06/14 06/[address]) High risk 904117982 Resolved Fabián A Long-term drug meds long (SNOMED 06/03 06/03 Sara therapy term use CT) DO High risk 929592595 Removed Fabián A Long-term drug meds long (SNOMED 06/03 06/03 Sara therapy term use CT) DO Macular 360479966 Active Fabián 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 Screening for 901625020 Active Fabián A Screening for breast cancer (SNOMED Sara malignant CT) DO neoplasm of breast Hypothyroidis 57504852 Active Fabián A Hypothyroidism m (SNOMED 10/20 10/[address]) DO Systemic 99891550 Active Fabián A Systemic lupus lupus (SNOMED 10/20 10/[address]) DO Medications Medication Instructions Start Stop Generic Name NDC Provider Date Date BREO ELLIPTA One puff INH every FLUTICASONE 29979489609 Vignesh Joseph 200-25 FUROATE-VILANTEROL Mk MCG/INH AEPB PREDNISONE 20 Take 3 tablets by PREDNISONE 39456578805 Vignesh W MG TABS mouth daily for 06/19 Mk days. 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 10 Two tabs daily for PREDNISONE 58737885270 Iris L MG TABS one week, then [place] tab daily for one week, then 1/2 tab daily PREDNISONE 10 Two tabs daily for PREDNISONE 18751553936 Vannessa M MG TABS one week, then 09/18 Shun tab daily for one week, then 1/2 tab daily VITAMIN D3 600 mg daily CHOLECALCIFEROL CAPS 97779705507 Fabián A CAPS /23 Sara DO DOCUSATE daily DOCUSATE SODIUM 58639937351 Fabián A SODIUM 100 MG /23 Sara TABS DO B COMPLEX daily B COMPLEX VITAMINS 36014884418 Fabián A CAPS /23 Sara DO VIACTIV daily CALCIUM-VITAMIN 96339118180 Fabián A 500-500- D-VITAMIN K Sara MG-UNT-MCG DO CHEW VIACTIV daily CALCIUM-VITAMIN 50968649144 Iris L 05/31 D-VITAMIN K Benjamin MG-UNT-MCG CHEW CALCIUM 50 mg daily CALCIUM 04120858958 Fabián A CITRATE-VIT CITRATE-VITAMIN D [facility] IN D3 LIQD LIQD DO CALCIUM 50 mg daily CALCIUM 36595452167 Iris L CITRATE-VITAM /23 05/31 CITRATE-VITAMIN D [place] IN D3 LIQD LIQD FISH OIL CAPS 3,000 mg daily OMEGA-3 FATTY ACIDS 35007961717 Fabián A /23 CAPS Sara DO FISH OIL CAPS 3,000 mg daily OMEGA-3 FATTY ACIDS 20880592926 Iris L /05/31 CAPS [place] IBUPROFEN 800 mg 1-2 daily IBUPROFEN TABS 35373028500 Fabián A TABS as needed / Sara DO IBUPROFEN 800 mg 1-2 daily IBUPROFEN TABS 93467801343 Iris L TABS as needed 05/31 [place] PYRIDIUM TABS as needed PHENAZOPYRIDINE HCL 36694201408 Fabián A /23 TABS Asra DO PYRIDIUM TABS as needed PHENAZOPYRIDINE HCL 40135668743 Iris L /05/31 TABS [place] CYSTEX TABS as needed METHENAMINE-SODIUM 85243661421 Fabián A SALICYLATE TABS Sara DO CYSTEX TABS as needed METHENAMINE-SODIUM 44400022142 Iris L /05/31 SALICYLATE TABS [place] FOLIC ACID daily FOLIC ACID 86713954624 Fabián A 800 MCG TABS / Sara DO VITAMIN D3 daily CHOLECALCIFEROL 03063057749 Iris L 1000 UNIT /21 [place] CAPS DOCUSATE One cap daily DOCUSATE CALCIUM 52071030585 Iris L CALCIUM 240 /21 [place] MG CAPS VITAMIN B-12 daily CYANOCOBALAMIN 21125186148 Iris L 500 MCG TABS /21 [place] BORAGE OIL One cap daily BORAGE (BORAGO 18154183395 Iris L 1000 MG CAPS /21 OFFICINALIS) [place] CALCIUM daily CALCIUM ASCORBATE 54737347146 Iris L ASCORBATE 500 /21 [place] MG TABS FLOVENT HFA FLUTICASONE 78177267539 Iris L 44 MCG/ACT /20 PROPIONATE HFA [place] AERO KELP TABS 41 mg daily KELP TABS 98180389625 Iris L /21 [place] MAGNESIUM One cap daily MAGNESIUM OXIDE 59763936745 Iris Paige OXIDE 400 MG /21 [place] CAPS OMEGA-3 CAPS docosahexaenoic DOCOSAHEXAENOIC 40465301864 Iris Paige acid 120mg/ /21 ACID-EPA CAPS Gary Eicosapentaenoic acid 180mg caps GLUCOSAMINE-C 1100mg daily GLUCOSAMINE-CHONDROI 30336414502 Iris Paige HONDROITIN-MS / TIN-MSM CAPS [place] [...] NHIS SMOK STATUS Never smoker Tobacco use [facility] Plan of Care Type Date Detail Appointment 01:00 PM Vignesh Terrazas, [address], [address], [place], [address] Pending order Follow Up Appt 6 months [...] with Differential 0786-1 *CMP Complete Metabolic Panel CPT-55873 X-Ray, Chest, PA & Lateral CPT-35589 Hepatitis Panel 2118-8 *PREGS - Qualitative, Serum 43385-5 *CRP - C-Reative Protein 38591-3 *Sedimentation Rate (ESR) 52658-0 *UAC- Urinalysis, Complete w/ Micro CPT-91411 Mammogram, Screening, both breasts 3016-3 *TSH 0184-1 [...]
--- OUTSIDE RECORDS SUMMARY | 2018-04-23 04:49 | XMS RPT_ITS | Clinical Summary ---
:1965 Author Organization [facility], [facility] Address [address] [place] [address] Phone Care Team Providers Name Role Phone Alka Hurtado LPN Unavailable Unavailable Conditions or Problems Problem Name Problem Onset Status Entry Provider Comment Standard Annotate Code Date Date Description Cough, 41743645 Active Vignesh Joseph Chronic cough chronic (SNOMED 06/14 06/[address]) Edema 227429163 Active Vignesh Joseph Edema (SNOMED 06/14 06/[address]) High risk 118371857 Resolved Fabián A Long-term drug meds long (SNOMED 06/03 06/03 Sara therapy term use CT) DO High risk 330064213 Removed Fabián A Long-term drug meds long (SNOMED 06/03 06/03 Sara therapy term use CT) DO Macular 971937000 Active Fabián 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 Screening for 365758648 Active Fabián A Screening for breast cancer (SNOMED Sara malignant CT) DO neoplasm of breast Hypothyroidis 53357259 Active Fabián A Hypothyroidism m (SNOMED 10/20 10/[address]) DO Systemic 08259715 Active Fabián A Systemic lupus lupus (SNOMED 10/20 10/[address]) DO Medications Medication Instructions Start Stop Generic Name NDC Provider Date Date FLOVENT HFA 2 puffs twice FLUTICASONE 02355877226 Sia 44 MCG/ACT daily /20 PROPIONATE HFA S Page 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 PREDNISONE 10 Two tabs daily for PREDNISONE 14574443046 Iris L MG TABS one week, then [place] tab daily for one week, then 1/2 tab daily PREDNISONE 10 Two tabs daily for PREDNISONE 06708594834 Vannessa M MG TABS one week, then 09/18 Shun tab daily for one week, then 1/2 tab daily FLOVENT HFA FLUTICASONE 03585874217 Iris L 44 MCG/ACT /20 PROPIONATE HFA [place] AERO VITAMIN D3 600 mg daily CHOLECALCIFEROL 46327613455 Fabián A CAPS /23 CAPS Sara DO DOCUSATE daily DOCUSATE SODIUM 78808880528 Fabián A SODIUM 100 MG /23 Sara TABS DO B COMPLEX daily B COMPLEX VITAMINS 13428352079 Fabián A CAPS /23 Sara DO VIACTIV daily CALCIUM-VITAMIN 31313286400 Fabián A 500-500- D-VITAMIN K Sara MG-UNT-MCG DO CHEW VIACTIV daily CALCIUM-VITAMIN 96774252605 Iris L 500-500-40 /05/31 D-VITAMIN K [place] MG-UNT-MCG CHEW CALCIUM 50 mg daily CALCIUM 57290908272 Fabián A CITRATE-VIT CITRATE-VITAMIN D Sara IN D3 LIQD LIQD DO CALCIUM 50 mg daily CALCIUM 06852980675 Iris L CITRATE-VITAM /23 05/31 CITRATE-VITAMIN D [place] IN D3 LIQD LIQD FISH OIL CAPS 3,000 mg daily OMEGA-3 FATTY ACIDS 86563535226 Fabián A /23 CAPS Sara DO FISH OIL CAPS 3,000 mg daily OMEGA-3 FATTY ACIDS 57516335675 Iris L 05/31 CAPS [place] IBUPROFEN 800 mg 1-2 daily IBUPROFEN TABS 17908045339 Fabián A TABS as needed Sara DO IBUPROFEN 800 mg 1-2 daily IBUPROFEN TABS 29024830406 Iris L TABS as needed 05/31 [place] PYRIDIUM TABS as needed PHENAZOPYRIDINE HCL 07352058634 Fabián A TABS Sara DO PYRIDIUM TABS as needed PHENAZOPYRIDINE HCL 88321632811 Iris L /05/31 TABS [place] CYSTEX TABS as needed METHENAMINE-SODIUM 16528138161 Fabián A SALICYLATE TABS Sara DO CYSTEX TABS as needed METHENAMINE-SODIUM 83631981829 Iris L /05/31 SALICYLATE TABS [place] FOLIC ACID daily FOLIC ACID 72975119699 Fabián A 800 MCG TABS Sara DO VITAMIN D3 daily CHOLECALCIFEROL 13205707829 Iris L 1000 UNIT /21 [place] CAPS DOCUSATE One cap daily DOCUSATE CALCIUM 43624728606 Iris L CALCIUM 240 /21 [place] MG CAPS VITAMIN B-12 daily CYANOCOBALAMIN 43413606871 Iris L 500 MCG TABS / [place] BORAGE OIL One cap daily BORAGE (BORAGO 62627131308 Iris L 1000 MG CAPS / OFFICINALIS) [place] CALCIUM daily CALCIUM ASCORBATE 80948145555 Iris L ASCORBATE 500 /21 [place] MG TABS KELP TABS 41 mg daily KELP TABS 55815009959 Iris L /21 [place] MAGNESIUM One cap daily MAGNESIUM OXIDE 48192892449 Iris L OXIDE 400 MG /21 [place] CAPS OMEGA-3 CAPS docosahexaenoic DOCOSAHEXAENOIC 32386215410 Iris Paige acid 120mg/ ACID-EPA CAPS [place] Eicosapentaenoic acid 180mg caps GLUCOSAMINE-C 1100mg daily GLUCOSAMINE-CHONDRO 52608211555 Iris Paige HONDROITIN- ITIN-MSM CAPS [place] M CAPS Medications Administered No [...] Pathology Report: Cytology, Body Fluid / CSF [id number] SEE PATHOLOGY REPORT GE use only - [...] serum, quantitative Office Visit: new patient, [facility] No Fall risk assessment Office Visit: chronic cough MEDS REVIEW Done Documentation of current medications (procedure) ORALTOBACUSE Never Tobacco smoking status NHIS SMOK STATUS Never smoker Tobacco use [facility] Plan of Care Type Date Detail Appointment 02:[address] [place] [address], [facility], [place], [address], Appointment 01:00 PM Vignesh Terrazas, [address], [address], [place], [address] Pending order Follow Up Appt 6 months [...] with Differential 0786-1 *CMP Complete Metabolic Panel CPT-82985 X-Ray, Chest, PA & Lateral CPT-85579 Hepatitis Panel 2118-8 *PREGS - Qualitative, Serum 77059-9 *CRP - C-Reative Protein 11841-7 *Sedimentation Rate (ESR) 28821-1 *UA- Urinalysis, Complete w/ Micro CPT-17759 Mammogram, Screening, both breasts 3016-3 *TSH 0184-1 *CBC with Differential Vital Signs Date Name Value Unit Description Body Temperature 98.9 [degF] temperature E&M BMI (Body Mass Index) 24.87 kg/m2 Body Mass Index [Ratio] BP Diastolic 78 mm[Hg] blood pressure, diastolic - 8462-4 BP Systolic 116 mm[Hg] blood pressure, systolic - 8480-6 Heart Rate 59 /min pulse rate E&M - 8867-4 Height 62 [in_us] height E&M - 8302-2 Respiratory Rate 18 /min respiratory rate E&M - 9279-1 Weight Measured 136 [lb_av] weight E&M - 3141-9
--- OUTSIDE RECORDS SUMMARY | 2018-04-23 04:49 | XMS RPT_ITS | Clinical Summary ---
:1965 Author Organization [employer] [facility], [facility] Address [address] [place] [address] Phone Care Team Providers Name Role Phone Vannessa Hoffmann Unavailable Unavailable Conditions or Problems Problem Name Problem Onset Status Entry Provider Comment Standard Annotate Code Date Date Description Cough, 96581311 Active Vignesh Joseph Chronic cough chronic (SNOMED 06/14 06/[address]) Edema 263450067 Active Vignesh W Edema (SNOMED 06/14 06/[address]) High risk 144438851 Resolved Fabián A Long-term drug meds long (SNOMED 06/03 06/03 Sara therapy term use CT) DO High risk 772525143 Removed Fabián A Long-term drug meds long (SNOMED 06/03 06/03 Sara therapy term use CT) DO 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 Screening for 941366157 Active Fabián A Screening for breast cancer (SNOMED Sara malignant CT) DO neoplasm of breast Hypothyroidis 84679352 Active Fabián A Hypothyroidism m (SNOMED 10/20 10/[address]) DO Systemic 14987764 Active Fabián A Systemic lupus lupus (SNOMED 10/20 10/[address]) DO Medications Medication Instructions Start Stop Generic Name NDC Provider Date Date BREO ELLIPTA One puff INH every FLUTICASONE 12242120857 Vignesh W 200-25 / FUROATE-VILANTEROL Mk MCG/INH AEPB PREDNISONE 20 Take 3 tablets by PREDNISONE 46617775083 Vignesh W MG TABS mouth daily for 06/19 Mk days. 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 PREDNISONE 10 Two tabs daily for PREDNISONE 56930983212 Iris L MG TABS one week, then [place] tab daily for one week, then 1/2 tab daily PREDNISONE 10 Two tabs daily for PREDNISONE 02827490716 Vannessa M MG TABS one week, then 09/18 Shun tab daily for one week, then 1/2 tab daily VITAMIN D3 600 mg daily CHOLECALCIFEROL CAPS 67858424700 Fabián A CAPS /23 Sara DO DOCUSATE daily DOCUSATE SODIUM 11352863237 Fabián A SODIUM 100 MG /23 Sara TABS DO B COMPLEX daily B COMPLEX VITAMINS 27425837906 Fabián A CAPS /23 Sara DO VIACTIV daily CALCIUM-VITAMIN 19521204315 Fabián A 500-500- D-VITAMIN K Sara MG-UNT-MCG DO CHEW VIACTIV daily CALCIUM-VITAMIN 38757220442 Iris L 500-500-40 /23 05/31 D-VITAMIN K Benjamin MG-UNT-MCG CHEW CALCIUM 50 mg daily CALCIUM 14433101574 Fabián A CITRATE-VITAM CITRATE-VITAMIN D Sara IN D3 LIQD LIQD DO CALCIUM 50 mg daily CALCIUM 08383586592 Iris Royal CITRATE-VITAM /23 05/31 CITRATE-VITAMIN D [place] IN D3 LIQD LIQD FISH OIL CAPS 3,000 mg daily OMEGA-3 FATTY ACIDS 53764601830 Fabián A /23 CAPS Sara DO FISH OIL CAPS 3,000 mg daily OMEGA-3 FATTY ACIDS 64109515069 Iris L /23 05/31 CAPS [place] IBUPROFEN 800 mg 1-2 daily IBUPROFEN TABS 41814953890 Fabián A TABS as needed / Sara DO IBUPROFEN 800 mg 1-2 daily IBUPROFEN TABS 54606817160 Iris L TABS as needed 05/31 [place] PYRIDIUM TABS as needed PHENAZOPYRIDINE HCL 44279543958 Fabián A / TABS Sara DO PYRIDIUM TABS as needed PHENAZOPYRIDINE HCL 30013565259 Iris L /23 05/31 TABS [place] CYSTEX TABS as needed METHENAMINE-SODIUM 28472330361 Fabián A SALICYLATE TABS Sara DO CYSTEX TABS as needed METHENAMINE-SODIUM 14317423803 Iris L /23 05/31 SALICYLATE TABS [place] FOLIC ACID daily FOLIC ACID 31191177022 Fabián A 800 MCG TABS / Sara DO VITAMIN D3 daily CHOLECALCIFEROL 86283003234 Iris L 1000 UNIT / [place] CAPS DOCUSATE One cap daily DOCUSATE CALCIUM 61279941444 Iris L CALCIUM 240 /21 [place] MG CAPS VITAMIN B-12 daily CYANOCOBALAMIN 31975183907 Iris L 500 MCG TABS /21 [place] BORAGE OIL One cap daily BORAGE (BORAGO 44054963953 Iris L 1000 MG CAPS /21 OFFICINALIS) [place] CALCIUM daily CALCIUM ASCORBATE 14676051222 Iris L ASCORBATE 500 /21 [place] MG TABS FLOVENT HFA FLUTICASONE 60167760914 Iris L 44 MCG/ACT /20 PROPIONATE HFA [place] AERO KELP TABS 41 mg daily KELP TABS 56813240426 Iris L /21 [place] MAGNESIUM One cap daily MAGNESIUM OXIDE 56818932895 Iris L OXIDE 400 MG /21 [place] CAPS OMEGA-3 CAPS docosahexaenoic DOCOSAHEXAENOIC 31942848385 Iris Paige acid 120mg/ /21 ACID-EPA CAPS [place] Eicosapentaenoic acid 180mg caps GLUCOSAMINE-C 1100mg daily GLUCOSAMINE-CHONDROI 52506015590 Iris Paige HONDROITIN-MS / TIN-MSM CAPS [place] [...] Pathology Report: Cytology, Body Fluid / CSF GT-ABIEL-phyllis SEE PATHOLOGY REPORT GE use only - [...] serum, quantitative Office Visit: new patient, cough [facility] No Fall risk assessment Office Visit: chronic cough MEDS REVIEW Done Documentation of current medications (procedure) ORALTOBACUSE Never Tobacco smoking status NHIS SMOK STATUS Never smoker Tobacco use [facility] Plan of Care Type Date Detail Appointment 01:00 PM Vignesh Terrazas, [address], [address], [place], [address] Pending order Follow Up Appt 6 months [...] with Differential 0786-1 *CMP Complete Metabolic Panel CPT-47928 X-Ray, Chest, PA & Lateral CPT-86586 Hepatitis Panel 2118-8 *PREGS - Qualitative, Serum 25817-0 *CRP - C-Reative Protein 81731-4 *Sedimentation Rate (ESR) 27260-5 *UAC- Urinalysis, Complete w/ Micro CPT-66548 Mammogram, Screening, both breasts 3016-3 *TSH 0184-1 [...]
== END ==
PROVIDERS: Family Provider Family Medicine; PCP Family Medicine; Visit Provider Obstetrics & Gynecology
DX: Z12.4 Encounter for screening for malignant neoplasm of cervix (principal)
CPT/HCPCS: 88175; G0145

== ENCOUNTER → 2018-02-28 08:58 | Outpatient (CLI) | payer OTHER, SELFPAY ==
--- NOTE | 2018-02-28 09:01 | BI_ITS ---
MAMMOGRAPHY - BILATERAL SCREENING REASON FOR EXAM: Female, 52 years old. Routine annual screening examination. PERTINENT HISTORY: Non-contributory. TECHNIQUE: Digital bilateral breast patrick (3D mammographic acquisition) in the CC and MLO projections. 2-D mediolateral oblique (MLO) and craniocaudad (CC) views of both breasts were obtained. CAD: Full Field Digital Mammography with Computer Added Detection was performed. COMPARISON: Comparison is made with prior study dated October 18, 2016 and August 23, 2015. FINDINGS: Breast Composition: There are scattered areas of fibroglandular density. There are no dominant masses or suspicious calcifications. No other significant abnormalities are identified. There has been no significant change since the prior study. BI/SCREENING MAMM (CAD), BILAT IMPRESSION: Stable bilateral screening mammogram. Yearly follow-up mammogram recommended. (A) ASSESSMENT CATEGORY: BIRADS Category 1: Negative. A letter regarding these results will be sent to the patient by the facility within 30 days. Approximately 10% of breast cancers are not detected by mammography. A normal mammogram should not delay biopsy of a clinically suspicious abnormality. [id number] Electronically Signed: Chapo Arias MD at 9:25 EST Tel [phone], Service support ,
--- OUTSIDE RECORDS SUMMARY | 2018-04-24 19:13 | XMS RPT_ITS ---
[...] Unknown B02.9 - Zoster López Villalobos Active [place] without Community complications / Hospital B02.9(ICD-10) Repository 01/25/2018 Unknown S05.02XA - Injury López Villalobos Active [facility] of conjunctiva and Community corneal abrasion Hospital without foreign Repository body, left eye, initial encounter / S05.02XA(ICD-10) 03/19/2017 Unknown J45.909 - Vignesh Terrazas Active [place] Unspecified asthma, Community uncomplicated / Hospital J45.909(ICD-10) Repository PROCEDURES PROCEDURES No Procedure Records FoundRESULTS RESULTS CERVICAL Observed: 03/12/2018 Status: F Source: [place] 3:35 PM [facility] HOSP[facility] REPOSITORY Patient: CHASITY NIETO : 1965 (52/F) Acct Num: [id number] Phys: Torito TAYLOR,[facility] Unit Num: [id number] Loc: LABSPEC Specimen: [id number] Received: 03/12/181906 Spec Type: CERV TISSUES 1 TISSUES: A. Uterine cervix, NOS B. Endocervical COMMENT A. Results from immunohistochemistry ([id number]) for surrogate HPV marker (p16) will be [...] in one cassette. / LIZ:balwinder 03/13/18 TC: 70075 CPT: 65430 x2 HEADER OPERATION: Colposcopy PRE-OP DIAGNOSIS: Pap [...] on file> Performed By: #### PCER #### [facility] [address] [place] [address]. [place], [place], [id number] IMMUNOHISTOCHEMISTRY Observed: 03/12/2018 Status: F Source: [place] 12:00 AM [facility] [place] Patient: CHASITY NIETO : 1965 (52/F) Acct Num: [id number] Phys: Torito TAYLOR,Danilo Unit Num: [id number] Loc: LABSPEC Specimen: [id number] Received: 03/16/181155 Spec Type: IMMUNO TISSUES 1 TISSUES: A. Uterine cervix, NOS SPECIMEN INFORMATION: Tissue Source: A - Cervical biopsy 6 o'clock Clinical Info: ASCUS, HPV HR positive Specimen Number: [id number] CPT code: 38015, 66819 METHODOLOGY: Deparaffinized sections of prefer/formalin-fixed tissue or [...] developed and their performance characteristics determined by [facility]. They may not have been cleared or approved by the U.S. Food and Drug Administration. The FDA has determined that such clearance or approval is not necessary. INTERPRETATION: A. Cervix, 6 o'clock, biopsy: Consistent with mild squamous dysplasia, ARIANA I ( LSIL). AM:balwinder 03/17/18 PHYSICIAN AND INSTITUTION [address] [address] Signed Mitch DO Fadia 03/17/18 <signature on file> Performed By: #### PIMM #### [facility] [address] [place], [address] SCREENING MAMM (CAD), Observed: 02/28/2018 Status: F Source: [place] BILAT 9:01 AM [facility] HOSPITAL REPOSITORY [facility] Imaging Services [address] [place] [address] SCREENING MAMM (CAD), BILAT MR#: [id number] Acct: [id number] Name: CHASITY NIETO Rep #: [id number] : 1965 F 52 From: Chapo Arias MD PCP: Fabián Ruiz DO Status: REG CLI Study: SCREENING MAMM (CAD), BILAT Date of Exam: 02/28/18 Exam# [id number] Ordering Dr: Fabián Ruiz DO MAMMOGRAPHY - [...] delay biopsy of a clinically suspicious abnormality. [id number] Electronically Signed: Chapo Arias MD at 9:25 EST Tel [phone], Service support , CC: Fabián Ruiz DO Slip Bridge Operator: Signed PAP IG HPV HR Collected: 02/25/2018 Status: F Source: [place] KNAPP 4:00 PM [facility] [place] Order Comment: CYTOLOGY INFORMATION: - CLINICAL INFORMATION: - DATE LMP/MENOPAUSE: 12/18/17 LMP - COLLECTION VIAL: Thin Prep Vial - RESEARCH AIDE SOURCE: CERVICAL/ENDOCERVICAL - COLLECTION TECHNIQUE: BRUSH/SPATULA Specimen Comment: [id number] Specimen Comment: Source.............Cervix;Endocervix Specimen Comment: LMP / Prev Treat...HAB=[id number] Specimen Comment: No. of containers..01 ThinPrep Vial TYPE CODE TESTS RESULT OUT OF REFERENCE UNITS RANGE LAB L7400.0800 . High DIAGN Comment Result Comment: EPITHELIAL CELL ABNORMALITY. ATYPICAL SQUAMOUS CELLS OF UNDETERMINED SIGNIFICANCE. LAB L7400.0900 . Normal ADEQ Comment Result Comment: Satisfactory for evaluation. Endocervical and/or squamous metaplastic cells (endocervical component) are present. LAB L7400.1400 . Normal PERFORM Comment Result Comment: Nalini Hickey, Jewel Sawyer (ASCP) LAB L7400.1700 . Normal SIGN Comment [...] (16/18/31/33/35/39/45/ 51/52/56/58/59/66/68) without differentiation. Performed at: - [facility] [id number] Copy Holder: Rukhsana Miller MD, Phone: [phone] Performed at: = - [facility] [address] [id number] Copy Holder: Rukhsana Miller MD, Phone: [phone] Performed By: #### L7400.0377 #### [facility] (refer to report for specific site) refer to report for address and phone number URGENT CARE VISIT Observed: 01/23/2018 Status: F Source: [place] REPORT 6:29 PM [facility] [place] [address] [place] [address] OFFICE VISIT Date of Service: 01/23/18 MR#: [id number] Acct: [id number] Name: CHASITY NIETO Rep #: [id number] : 1965 Provider: López AUGUSTE Age/Sex: 52/F Location: [facility] Status: Signed Intake Vital Signs01/23/18 Height 5 [...] eyes Exam Const General: cooperative, healthy appearing [facility] Head: normocephalic, atraumatic Ears: hearing grossly normal [...] appointment that is already scheduled with her clerical aide teacher early next week for further evaluation of [...] VISIT REPORT Observed: 03/19/2017 Status: F Source: [place] 4:20 PM [facility] [place] [facility] [address] [place] [address] OFFICE VISIT Date of Service: 03/19/17 MR#: [id number] Acct: [id number] Name: CHASITY NIETO Rep #: [id number] : 1965 Provider: Vignesh Terrazas MD Age/Sex: 51/F Location: [facility] Status: Signed Assessment AND Plan 1. Moderate [...] a minor sore throat. Patient has used [id number]-udy-wnplcwf medications with no improvement. Patient estimates that [...] PO DAILY 01/15/17 [History Confirmed 03/19/17] Hydrocodone/Acetaminophen [Republic 5-325 Tablet] 1 - 2 ea PO Q4H PRN PRN #10 tab 01/20/17 [Rx Confirmed 03/19/17] antiarthritic combination no.2 900 mg tablet mg PO 03/15/17 [History Confirmed 03/15/17] docusate calcium 240 mg capsule 240 mg PO QHS 03/15/17 [History Confirmed 03/15/17] fish oil 400 mg-flaxseed 400 mg-prim,blk sock drier,borag oils 200 mg capsule cap PO 03/15/17 [...] CODE REACTION SEVERITY SOURCE 01/23/2018 Drug hydroxychlor [place] [facility] Allergy/4160 oquine/F0060 [facility] [address](SNOMED 10481(RXNORM Repository CT) ) ENCOUNTERS ENCOUNTERS ADMIT/DISCHARGE ACCOUNT ADMITTING ENCOUNTER LOCATION SOURCE NUMBER CLASS 03/12/2018 [id number] [facility] ing:LABSPEC Repository 02/28/2018 [id number] Ambulatory [facility] [place] 7 [facility] ing:OPBI Repository 02/25/2018 [id number] Ambulatory [place] [facility] ing:LABSPEC Repository 01/23/2018/ [id number] Ambulatory BMSBuilding:B [facility] 8 8 [place] Repository 03/19/2017/ [id number] Ambulatory BMSBuilding:B [place] 7 5 [facility] Repository PAYERS PAYERS ENCOUNTER GUARANTOR PAYER SUBSCRIBER SOURCE 03/12/2018 CHASITY J [id number] Primary CHASITY J KINGDOB: [place] Insurance:MEDICAL [id number] [address]Uwy: (330) Number: Repository [phone] () [id number] Date:0066-13-78IU [address] [place], [place] [address]: 03/12/2018 Secondary NOT GIVENUNK [place] Insurance:SELF PAY [facility] Number: Effective Repository Date:2018-03-12 02/28/2018 CHASITY J [id number] Primary CHASITY J KINGDOB: [place] Insurance:MEDICAL [id number] [address]Vwl: (330) Number: Repository [phone] () [id number] Date:9552-76-[place] [address]WP: 02/28/2018 Secondary NOT GIVENUNK [facility] Insurance:SELF PAY [facility] Number: Effective Repository Date:2017-12-24 02/25/2018 CHASITY J [id number] Primary CHASITY J KINGDOB: [place] Insurance:MEDICAL [id number] [address]Qcs: (330) Number: Repository [phone] () [id number] Date:0689-49-28EH [address] [place], [place] [address]: 02/25/2018 Secondary NOT GIVENUNK [facility] Insurance:SELF PAY [facility] Number: Effective Repository Date:2018-02-25 01/23/2018 CHASITY J [id number] Primary CHASITY MORRISB: [place] Insurance:MEDICAL [id number] [facility] [address] [facility] [address]Xsi: 330) Number: Repository [phone] () [id number] Date:4872-76-51XZ [address], [place] [address]XM: 01/23/2018 Secondary NOT GIVENUNK [place] Insurance:SELF PAY [facility] Number: Effective Repository Date:2018-01-23 03/19/2017 CHASITY [id number] Primary Adis NietoB: [place] Insurance:AETNAPolicy [id number] [facility] [address], Number: [facility] [address]Mbt: (228) [id number] Repository [phone] () Date:6958-38-88UW [address] [place] [address]AW: 03/19/2017 Secondary NOT GIVENUNK [place] Insurance:SELF PAY [facility] Number: Effective Repository Date:2017-03-05
== END ==
PROVIDERS: Family Provider Family Medicine; PCP Family Medicine; Referring Provider Family Medicine; Visit Provider Family Medicine
DX: Z12.31 Encounter for screening mammogram for malignant neoplasm of breast (principal)
CPT/HCPCS: 77063; 77067

== ENCOUNTER → 2018-03-12 19:05 | Outpatient (CLI) | payer OTHER, SELFPAY ==
--- NOTE | 2018-03-12 | IMM_PTH ---
PATIENT: CHASITY ARIAS LOC: [facility] U#:[id number] AGE/SX: 59/F ROOM: RE03/12/[address]: Dr. Danilo Ugarte MD : 1965 BED: DIS: SPEC #: [id number] RECD: 03/16/18 11:56 STATUS: ENEIDA REQ #: [id number] [place]: 03/12/18 00:[address]: Danilo Ugarte DEPT: IMMUNOHISTOCHEMISTRY RECD BY: Nasreen Garcia ENTERED: 03/16/18 12:00 SP TYPE: IMMUNO OTHR DR: Dr. Fabián Ruiz, DO Tissues: A - Uterine cervix, NOS Procedures: p16 (initial) KI-67 (add) PHYSICIAN & INSTITUTION [place] [address] SPECIMEN INFORMATION: Tissue Source: A - Cervical biopsy 6 o'clock Clinical Info: ASCUS, HPV HR positive Specimen Number: [id number] CPT code: 50599, 87957 METHODOLOGY: Deparaffinized sections of prefer/formalin-fixed tissue or PAP/DQ stained slides are incubated with monoclonal/polyclonal antibodies/oligonucleotide probes. Localization is made via biotin free immunoperoxidase method. Appropriate controls are performed and reacted as expected. Results on target cell population are indicated in the following table: RESULTS: ANTIBODY / CLONE RESULT Block A P16 (E6H4) positive, focal, patchy Ki-67 (30-9) positive, low, focal These tests were developed and their performance characteristics determined by [facility]. They may not have been cleared or approved by the U.S. Food and Drug Administration. The FDA has determined that such clearance or approval is not necessary. INTERPRETATION: A. Cervix, 6 o'clock, biopsy: Consistent with mild squamous dysplasia, ARIANA I (LSIL). AM:balwinder 03/17/18
--- NOTE | 2018-03-12 15:35 | CER_PTH ---
PATIENT: CHASITY ARIAS LOC: [facility] U#:[id number] AGE/SX: 59/F ROOM: RE03/12/[address]: Dr. Danilo Ugarte MD : 1965 BED: DIS: SPEC #: [id number] RECD: 03/12/18 19:07 STATUS: ENEIDA RETrav #: [id number] [place]: 03/12/18 15:[address]: Danilo Ugarte DEPT: SURGICAL PATHOLOGY RECD BY: Dandy Bell ENTERED: 03/13/18 10:24 SP TYPE: CERV OTHR DR: Dr. Fabián Ruiz DO Tissues: A - Uterine cervix, NOS B - Endocervical Procedures: Surgery Specimen Level IV HEADER OPERATION: Colposcopy PRE-OP DIAGNOSIS: Pap ASCUS, HPV HR positive 02/25/18 TISSUE SUBMITTED: A - Cervical biopsy 6 o'clock, B - ECC MICROSCOPIC DIAGNOSIS A. Cervix at 6 o'clock, biopsy: Focal HPV change, ARIANA I (LSIL) present. Mild chronic inflammation. See comment. B. Endocervix, curettings: Benign superficial endocervix. Detached squamous epithelial cells with focal changes of viral cytopathic effect. AM:balwinder 03/16/18 COMMENT A. Results from immunohistochemistry ([id number]) for surrogate HPV marker (p16) will be reported separately. Case has been reviewed in consultation with Dr. Gtz who concurs with the above diagnosis. IDC:LIZ MICROSCOPIC DESCRIPTION Slides are reviewed. GROSS DESCRIPTION A - Received in fixative is one container labeled with the patient's name and designated cervical biopsy 6 o'clock. The specimen consists of multiple irregular fragments of light underwood soft tissue that in aggregate measure 1 x 0.5 x 0.1 cm. The specimen is totally submitted in one cassette. B - Received in fixative is one container labeled with the patient's name and designated ECC. The specimen consists of multiple fragments of hemorrhagic mucoid tissue that in aggregate measure 2 x 1.5 x 0.1 cm. The specimen is totally submitted in one cassette. / SJ:balwinder 03/13/18 TC: 07812 CPT: 80671 x2
--- OUTSIDE RECORDS SUMMARY | 2018-04-28 22:27 | XMS RPT_ITS ---
:1965 Author Organization [facility] Care Team Providers Name Role Phone Danilo Ugarte Attending Unavailable Danilo Ugarte Referring Unavailable Fabián Ruiz Primary Care Unavailable Fabián Ruiz Attending Unavailable Fabián Ruiz Referring Unavailable Fabián Ruiz Primary Care Unavailable López Villalobos Attending Unavailable Fabián Ruiz Referring Unavailable Danilo Ugarte Attending Unavailable Fabián Ruiz Primary Care Unavailable PROBLEMS PROBLEMS DATE TYPE CONDITION / CODE ATTENDING STATUS SOURCE 02/25/2018 Unknown Z12.4 - Encounter Danilo Ugarte Active [facility] for screening for Community malignant neoplasm Hospital of cervix / Repository Z12.4(ICD-10) 01/25/2018 Unknown B02.9 - Zoster López Villalobos Active [facility] without Community complications / Hospital B02.9(ICD-10) Repository 01/25/2018 Unknown S05.02XA - Injury López Villalobos Active [place] of conjunctiva and Community corneal abrasion Hospital without foreign Repository body, left eye, initial encounter / S05.02XA(ICD-10) PROCEDURES PROCEDURES No Procedure Records FoundRESULTS RESULTS CERVICAL Observed: 03/12/2018 Status: F Source: [place] 3:35 PM [facility] REPOSITORY Patient: CHASITY ARIAS : 1965 (52/F) Acct Num: [id number] Phys: Torito TAYLOR,Danilo Unit Num: [id number] Loc: LABSPEC Specimen: [id number] Received: 03/12/181906 Spec Type: CERV TISSUES 1 TISSUES: A. Uterine cervix, NOS B. Endocervical COMMENT A. Results from immunohistochemistry ([id number]) for surrogate HPV marker (p16) will be [...] is totally submitted in one cassette. / SJ:balwinder 03/13/18 TC: 10811 CPT: 43786 x2 HEADER OPERATION: Colposcopy PRE-OP DIAGNOSIS: Pap [...] on file> Performed By: #### PCER #### [facility] [address] [place] [address]. [place], [address] IMMUNOHISTOCHEMISTRY Observed: 03/12/2018 Status: F Source: [place] 12:00 [facility] REPOSITORY Patient: CHASITY ARIAS : 1965 (52/F) Acct Num: [id number] Phys: Torito TAYLOR,[facility] Unit Num: [id number] Loc: LABSPEC Specimen: [id number] Received: 03/16/181155 Spec Type: IMMUNO TISSUES 1 TISSUES: A. Uterine cervix, NOS SPECIMEN INFORMATION: Tissue Source: A - Cervical biopsy 6 o'clock Clinical Info: ASCUS, HPV HR positive Specimen Number: [id number] CPT code: 59106, 86776 METHODOLOGY: Deparaffinized sections of prefer/formalin-fixed tissue or [...] developed and their performance characteristics determined by [facility]. They may not have been cleared or approved by the U.S. Food and Drug Administration. The FDA has determined that such clearance or approval is not necessary. INTERPRETATION: A. Cervix, 6 o'clock, biopsy: Consistent with mild squamous dysplasia, ARIANA I ( LSIL). AM:balwinder 03/17/18 PHYSICIAN AND INSTITUTION [address] [address] Signed Mitch Loaiza, DO 03/17/18 <signature on file> Performed By: #### PIMM #### [facility] [address] [place] [address]. [place], [place], [address] SCREENING MAMM (CAD), Observed: 02/28/2018 Status: F Source: [place] BILAT 9:01 AM [facility] REPOSITORY [facility] Imaging Services [address] [place] [address] SCREENING MAMM (CAD), BILAT MR#: [id number] Acct: [id number] Name: CHASITY ARIAS Rep #: [id number] : 1965 F 52 From: Chapo Arias MD PCP: Fabián Ruiz DO Status: REG CLI Study: SCREENING MAMM (CAD), BILAT Date of Exam: 02/28/18 Exam# [id number] Ordering Dr: Fabián Ruiz DO MAMMOGRAPHY - [...] delay biopsy of a clinically suspicious abnormality. [id number] Electronically Signed: Chapo Arias MD at 9:25 EST Tel [phone], Service support , CC: Fabián Ruiz DO Shirring Tender: Signed PAP IG HPV HR Collected: 02/25/2018 Status: F Source: [place] APTIMA 4:00 PM [facility] REPOSITORY Order Comment: CYTOLOGY INFORMATION: - CLINICAL INFORMATION: - DATE LMP/MENOPAUSE: 12/18/17 LMP - COLLECTION VIAL: Thin Prep Vial - HEALTH CENTER MANAGER SOURCE: CERVICAL/ENDOCERVICAL - COLLECTION TECHNIQUE: BRUSH/SPATULA Specimen Comment: [id number] Specimen Comment: Source.............Cervix;Endocervix Specimen Comment: LMP / Prev Treat...ARM=[id number] Specimen Comment: No. of containers..01 ThinPrep Vial TYPE CODE TESTS RESULT OUT OF REFERENCE UNITS RANGE LAB L7400.0800 . High DIAGN Comment Result Comment: EPITHELIAL CELL ABNORMALITY. ATYPICAL SQUAMOUS CELLS OF UNDETERMINED SIGNIFICANCE. LAB L7400.0900 . Normal ADEQ Comment Result Comment: Satisfactory for evaluation. Endocervical and/or squamous metaplastic cells (endocervical component) are present. LAB L7400.1400 . Normal PERFORM Comment Result Comment: Nalini Hickey, Home Care Physical Therapist (ASCP) LAB L7400.1700 . Normal SIGN Comment [...] types (16/18/31/33/35/39/45/ 51/52/56/58/59/66/68) without differentiation. Performed at: [facility] [address] StreetRaymond [place]opezRock [place], [place] [id number] Financial Writer: Rukhsana Miller MD, Phone: [phone] Performed at: =G - [facility] [address] [place]opez[place], [place] [id number] Financial Writer: Rukhsana Miller MD, Phone: [phone] Performed By: #### L7400.0377 #### [facility] (refer to report for specific site) refer to report for address and phone number URGENT CARE VISIT Observed: 01/23/2018 Status: F Source: [place] REPORT 6:29 PM [facility] RE[facility] [address] [place] [address] [address] [place] [address] OFFICE VISIT Date of Service: 01/23/18 MR#: [id number] Acct: [id number] Name: CHASITY ARIAS Rep #: [id number] : 1965 Provider: López AUGUSTE Age/Sex: 52/F [place] [facility] Status: Signed Intake Vital Signs01/23/18 Height 5 [...] aerobics frequency: daily HPI HPI Details: CHASITY ARIAS, is a 52 F who presents to [...] eyes Exam Const General: cooperative, healthy appearing [facility] Head: normocephalic, atraumatic Ears: hearing [...] appointment that is already scheduled with her professional healthcare representative early next week for further evaluation of [...] encounter S05.02XA Encounter type: initial encounter 01/23/18 3392 <Electronically signed by López AUGUSTE> Date López Hunt Signature: Date (if applicable) CC: ALLERGIES ALLERGIES DATE TYPE / CODE NAME / CODE REACTION SEVERITY SOURCE 01/23/2018 Drug hydroxychlor [facility] Allergy/4160 oquine/F0060 Hospital 57449(SNOMED 11100(RXNORM Repository CT) ) ENCOUNTERS ENCOUNTERS ADMIT/DISCHARGE ACCOUNT ADMITTING ENCOUNTER LOCATION SOURCE NUMBER CLASS 03/12/2018 [id number] Ambulatory [facility] 9 [facility] ing:LABSPEC Repository 02/28/2018 [id number] Ambulatory [address] ing:OPBI Repository 02/25/2018 [id number] Ambulatory [address] ing:LABSPEC Repository 01/23/2018/ [id number] Ambulatory BMSBuilding:B [facility] 8 [facility] Repository PAYERS PAYERS ENCOUNTER GUARANTOR PAYER SUBSCRIBER SOURCE 03/12/2018 CHASITY [id number] Primary CHASITY MORRISB: [place] Insurance:MEDICAL [id number] [address] [address]Hng: (330) Number: Repository [phone] ) [id number] Date:2774-25-09[address], [place] [address]YE: 03/12/2018 Secondary NOT GIVENUNK [place] Insurance:SELF PAY [facility] Number: Effective Repository Date:2018-03-12 02/28/2018 CHASITY ARIAS2618 Primary CHASITY MORRISB: [facility] [place] Insurance:MEDICAL [id number] [address] [address]Wqa: (330) Number: Repository [phone] () [id number] Date:5842-47-69NS [address] [place] [address]AJ: 02/28/2018 Secondary NOT GIVENUNK [place] Insurance:SELF PAY [facility] Number: Effective Repository Date:2017-12-24 02/25/2018 CHASITY J [id number] Primary CHASITY J KINGDOB: [place] Insurance:MEDICAL [id number] [address]Bpe: (330) Number: Repository [phone] () [id number] Date:8585-88-15NB [address] [address]NF: 02/25/2018 Secondary NOT GIVENUNK [facility] Insurance:SELF PAY [facility] Number: Effective Repository Date:2018-02-25 01/23/2018 CHASITY J [id number] Primary CHASITY J KINGDOB: [facility] [place] Insurance:MEDICAL [id number] [address]Wkm: (330) Number: Repository [phone] () [id number] Date:9931-95-16OP [address] [address]GE: 01/23/2018 Secondary NOT GIVENUNK [place] Insurance:SELF PAY [facility] Number: Effective Repository Date:2018-01-23
== END ==
PROVIDERS: Family Provider Family Medicine; PCP Family Medicine; Referring Provider Obstetrics & Gynecology; Visit Provider Obstetrics & Gynecology
DX: R87.610 Atypical squamous cells of undetermined significance on cytologic smear of cervix (ASC-US) (principal); R87.810 Cervical high risk human papillomavirus (HPV) DNA test positive
CPT/HCPCS: 88305; 88341; 88342

== ENCOUNTER 2018-08-12 08:35 | Day surgery (SDC) | payer OTHER, SELFPAY ==
[2018-08-12] VITALS (7 sets, daily range): BP systolic 98–109; BP diastolic 60–68; PULSE 60–69; RESP 16; TEMP 36.2–37.2; O2SAT 96–100; BMI 24.3
--- NOTE | 2018-08-12 09:43 | HP.PCM_ITS ---
History of Present Illness Date of Admission: 08/12/18 The patient is a 53 year old F presents for screening colonoscopy. Patient denies ever having a colonoscopy previously. States she has chronic constipation and has bowel movements every 3 to 5 days states her prep is clear/yellow liquid in color. Patient states she thinks she eats too much fiber and does not drink enough water. Patient states her paternal grandfather had colon cancer and lung cancer diagnosed at age 64 unsure which came first she believes there are 2 separate cancers. Patient denies any abdominal pain, nausea or vomiting patient had a history of reflux however she lost weight now denies any history of reflux. Past Medical/Surgical History - Planned Operation Planned Operative Procedure/s: cscope open access Date of Operative Procedure: 08/12/18 Permit Signed: No S.O.S: No Is This Patient Having a Total Joint: No - Previous Hospitalizations/Surgeries HX Hospitalizations: Yes HX of Surgeries: CYSTOSCOPY, WITH URETRAL DILATION X3. T&A. URETERSCOPY, WITH MIRENA REMOVAL & TUBAL. EGD. d&C ablation 2017 Any Problems With Anesthesia: Yes - nausea You/Your Family Experience Fever (Hyperthermia) With Anes: No Cholinesterase deficiency: No - Cardiovascular Hx Chest Pain within Last 2 months: No Hx of Irregular Heartbeat and/or Afib: Yes - irreg/heart murmur Hx Heart Attack: No Hx Congestive Heart Failure: No Hx Rheumatic Fever: No Hx Hypertension: No Hx Internal Defibrillator: No Hx Pacemaker: No Hx Cardiac Catheterization: No Hx Cardiac Surgery/Stents/Etc.: No Hx Stress Test: No - ECHO 06/26/16 HX Edema: No Hx Pain in Legs when Walking/Leg Cramps: No - . - Respiratory Chronic Cough: No HX of Shortness of Breath: No Hoarseness: No Hx Chronic Obstructive Pulmonary Disease (COPD): No Hx Asthma: Yes - prn inhaler Hx Emphysema: No Hx Sleep Apnea: No CPAP: No Hx Oxygen Use at Home: No Hx Respiratory Tract Infection/Cold (presently): No Do You Snore Loudly (louder than talking or can be heard): No Do You Often Feel Tired/ Fatigued/ Sleepy Dring Daytime?: Yes Has Anyone Observed You Stop Breathing During Sleep?: No Result (for STOP score): Negative Hx Smoking: No Smoking Status: Never smoker - Gastrointestinal Hx Gastroesophageal Reflux: Yes - in the past Controlled With Meds: Yes - PRILOSEC PRN Hx Gastrointestinal Disorders: No Hx Gastrointestinal Bleed: No Hx Ulcer: No Hx Hiatal Hernia: No Difficulty Chewing/Swallowing: No Recent Onset of Swallowing Problems: No Special diet followed at home: No Hx Unplanned Weight Loss of 20#: No HX Unplanned Weight Gain of 20#: No - Neurological Hx Seizures: No HX Syncope/Blackout Spells/Unconsciousness: No - . Hx CVA/Stroke: No Hx Transient Ischemic Attacks (TIA): No Hx Multiple Sclerosis: No Hx Parkinson's Disease: No Hx Head/Neck Injury: No Hx Headaches: No Hx Back Injury/Pain: No Recent Onset of Speech Difficulty: No Restless Legs: Yes Does patient have nerve stimulator: No Patient instructed to have device shut off: No Rep notified?: No - Blood Disorder Hx Leukemia: No Bleeding Tendencies: No Hx Deep Vein Thrombosis: No Hx High Cholesterol: No Blood Transmitted Disease: No Hx Hepatitis: No Hx Cirrhosis: No Hx Anemia: Yes - in the past Hx Blood Disorders: No - Reproduction Is Patient Lactating: No Hx Hysterectomy: No Hx Tubal Ligation: Yes Are You Post Menopause: No - Genitourinary Hx Renal Disease: Yes - chronic uti's Hx Dialysis: No - Musculoskeletal Hx Arthritis: No - LUPUS Hx Rheumatoid Arthritis: No Hx Gout: No Recent Onset of an Orthopedic Problem: No - Endocrine Hx Diabetes: No Thyroid Disease: Yes - on med Hx Steroid Therapy: No - . - Psycho/Social Hx Substance Use: No Hx Alcohol Use: No Hx Anxiety: No Hx Depression: No Mental Illness: No Hx Dementia: No - Miscellaneous Hx Cancer: No Recent Exposure to Contagious Disease: No Active MRSA: No Hx of C-Diff: No Any Loose Teeth: No Allergies hydroxychloroquine [From Plaquenil] Allergy (Mild, Verified 08/10/18 11:55) - Discharge Is Pt Admitted From a Assisted, or a Long Term: No Who Could Help: family After D/C, Where Do you Plan to Go: Return Home - Physical Exam General: Alert, Oriented x3, Cooperative, No apparent distress HEENT: Atraumatic Lungs: Normal air movement Cardiovascular: Regular rate Abdomen: Soft, Non Tender, Non-Distended Extremities: No clubbing, No cyanosis, No edema Neurological: Cranial nerves II-XII grossly intact Psych/Mental Status: Normal Affect Vital Signs Temp Pulse Resp BP Pulse Ox 98.9 F 69 16 109/63 100 08/12/18 08:52 08/12/18 08:52 08/12/18 08:52 08/12/18 08:52 08/12/18 08:52 Oxygen Delivery Method Room Air Weight: 133 lb 6.075 oz Body Mass Index (BMI) 24.3 Assessment/Plan All Active Problems (Last Reviewed 01/23/18 @ 17:57 by Alka Hurtado) Corneal abrasion, left (Acute) Shingles (Acute) History of endoscopy (Resolved) History of tubal ligation (Resolved) History of tonsillectomy and adenoidectomy (Resolved) history of cystoscopy/dilation (Resolved) 53-year-old female for screening for colon cancer, positive family history of colon cancer paternal grandfather diagnosed age 64 Surgery Risks - Colonoscopy I discussed with the patient the risks of the procedure: Yes Risks Include but are not Limited To: Risks include but are not limited to: Bleeding, perforation requiring further surgery, inability to complete colonoscopy requiring barium enema. Patient no further questions at this time.
--- NOTE | 2018-08-12 10:16 | OP.ENDO_ITS ---
08/12/2018 Fabián Ruiz [address] [place] [address] Re : Colonoscopy procedure for [facility] Dear Dr. Ruiz This procedure was performed on Sunday, August 12, 2018. My impressions and recommendations are as follows: Impressions : - The entire examined colon is normal on direct and retroflexion views. - No specimens collected. Recommendations : - Discharge patient to home. - High fiber diet. - Continue present medications. - Repeat colonoscopy in 10 years for screening purposes. My findings are described in the full procedure note, which is enclosed. If I can be of further assistance, please feel free to contact me at Doctor phone number(s): , Work: . Sincerely, MD Andra Fragoso MD 08/12/2018 10:15:54 AM This report has been signed electronically.
== END 2018-08-12 10:53 | disposition home or self-care (01) ==
LOC: EN 08:36 → AC 08:38
PROVIDERS: Family Provider Family Medicine; PCP Family Medicine; Referring Provider Family Medicine; Visit Provider Surgery
PROC: 0DJD8ZZ Inspection of Lower Intestinal Tract, Via Natural or Artificial Opening Endoscopic (ICD-10-PCS; CPT 45378; principal; 2018-08-12 09:40)
DX: Z12.11 Encounter for screening for malignant neoplasm of colon (principal); Z80.0 Family history of malignant neoplasm of digestive organs; K59.09 Other constipation; K21.9 Gastro-esophageal reflux disease without esophagitis; E06.9 Thyroiditis, unspecified; I49.9 Cardiac arrhythmia, unspecified; R01.1 Cardiac murmur, unspecified; J45.909 Unspecified asthma, uncomplicated; Z79.899 Other long term (current) drug therapy
CPT/HCPCS: 45378; J7120; J2405

== ENCOUNTER → 2019-02-12 15:28 | Outpatient (CLI) | payer BC, SELFPAY ==
[2019-01-21 14:16] VITALS: BMI 24.3
--- NOTE | 2019-02-12 15:34 | US_ITS ---
STUDY: SUPERFICIAL ULTRASOUND - RIGHT FOREARM. REASON FOR EXAM: Female, 53 years old. Lump. TECHNIQUE: A superficial ultrasound was performed with real-time and static rudolph-scale imaging. COMPARISON: None. FINDINGS: Real-time ultrasound was directed to the reported area of palpable lump. Cecal examination reveals no focal masslike density. In the region of the reported lump, there is an ovoid area of slightly hypoechoic pattern which could represent a small lipoma. US/Ext Non Vasc Limited/Soft Tiss IMPRESSION: Possible small lipoma in the region of clinical concern. Remainder of the exam unremarkable. Electronically Signed: Noemy Roberts MD at 7:31 EST , Service support ,
== END ==
PROVIDERS: Family Provider Family Medicine; PCP Family Medicine; Referring Provider Family Medicine; Visit Provider Family Medicine
DX: M67.40 Ganglion, unspecified site (principal); M32.9 Systemic lupus erythematosus, unspecified
CPT/HCPCS: 76882

== ENCOUNTER → 2019-03-11 14:26 | Outpatient (CLI) | payer BC, SELFPAY ==
[2019-03-11 06:39] VITALS: BMI 24.3
[2019-03-11 14:50] LABS: Mucous, Urine 0 SEEN /hpf (<or=2+); Red Blood Cells-Urine 0 SEEN /hpf (0-5); White Blood Cells 0 SEEN /hpf (0-5)
[2019-03-11 15:00] LABS: Color, Urine SEE COMMENT BELOW (Yellow); Glucose, Dipstick Normal (Normal); Ketone-Dipstick Negative (Negative); Leukocyte Esterase-Dipstick Negative /ul (Negative); Nitrite-Dipstick Negative (Negative); Occult Blood-Urine Negative /ul (Negative); Protein-Dipstick Negative (Negative); Urine Bilirubin Dipstick Negative (Negative); Urine Clarity Sl. Cloudy (Clear); Urine Urobilinogen Normal (Normal)
[2019-03-11 15:08] LABS: Bacteria RARE /hpf (None Seen); Squamous Epithelial Cells - UA 0-5 SEEN /hpf (5-10)
== END ==
PROVIDERS: Family Provider Family Medicine; PCP Family Medicine; Referring Provider Physician Assistant; Visit Provider Physician Assistant
DX: R30.0 Dysuria (principal)
CPT/HCPCS: 81001; 87086

== ENCOUNTER → 2019-04-23 10:24 | Outpatient (CLI) | payer BC, SELFPAY ==
[2019-01-21 14:16] VITALS: BMI 24.3
[2019-04-02 13:51] VITALS: BMI 24.3
--- NOTE | 2019-04-23 11:38 | NEURO_ITS ---
NCS and/or EMG Patient Report Ordering Doctor: Blue Harrison DATE OF SERVICE: 04/23/19 Glenys Nieto is a 53-year-old female presents for electrodiagnostic testing of the upper limbs. She reports numbness and tingling in both hands, which is progressively worsened over the past few years. Electrodiagnostic findings: Median motor nerve demonstrates normal distal latency, amplitude and conduction velocity bilaterally. Normal ulnar motor response bilaterally, including conduction across the elbow. Prolonged median s ensory latency at the wrist bilaterally. Normal radial and ulnar sensory responses. Normal median and ulnar F waves bilaterally. Electrodiagnostic impression: This is an abnormal study in the upper limbs. 1. Electrodiagnostic findings demonstrate bilateral median mononeuropathy. This is consistent with a mild bilateral carpal tunnel syndrome. If there are any further questions, please do not hesitate to contact me
== END ==
PROVIDERS: Family Provider Family Medicine; PCP Family Medicine; Referring Provider Physician Assistant; Visit Provider Physician Assistant
DX: G56.01 Carpal tunnel syndrome, right upper limb (principal); R20.2 Paresthesia of skin
CPT/HCPCS: 95886; 95912

== ENCOUNTER → 2019-05-08 08:50 | Outpatient (CLI) | payer BC, SELFPAY ==
[2019-04-02 13:51] VITALS: BMI 24.3
--- NOTE | 2019-05-08 09:10 | EKG12_ITS ---
Test Reason : PRE OP Blood Pressure : / mmHG Vent. Rate : 067 BPM Atrial Rate : 067 BPM P-R Int : 176 ms QRS Dur : 082 ms QT Int : 418 ms P-R-T Axes : 061 053 059 degrees QTc Int : 441 ms Normal sinus rhythm Nonspecific T wave abnormality Abnormal ECG Confirmed by NAKUL TAYLOR, EDGARDO ([id number]), manuscript editor BERNABE VINSON ([id number]) on 05/10/2019 11:16:50 AM Referred By: Blue Harrison Confirmed By:TANA MOTA MD
[2019-05-08 09:17] LABS: Hemoglobin 13.1 g/dL (12.0-15.0); Mean Corp Hgb Conc 33.6 g/dL (32-36); Mean Corpuscular Hgb 31.4 pg (27.0-32.0); Mean Corpuscular Volume 93.5 fL (81-99); Mean Platelet Vol. 11.9 fl (6.2-12.0); Platelet Count 224 K/mm3 (150-450); RBC Distribution Width CV 12.4 % (11.6-14.6); RBC Distribution Width SD 42.5 fl (35.1-43.9); Red Blood Count 4.17 M/mm3 (4.2-5.4); White Blood Count 4.2 K/mm3 (4.4-11.0)
[2019-05-08 09:38] LABS: Anion Gap 5 (5-15); BUN 10 mg/dL (7-18); BUN/Creat Ratio 14.3 RATIO (10-20); Calcium,Total 8.9 mg/dL (8.5-10.1); Chloride 99 mmol/L (98-107); EST Glomerular Filtration Rate 94 mL/min (>60); Est Glom Filt Rate - Afr Amer 113 mL/min (>60); Glucose 95 mg/dL (74-106); Potassium 3.8 mmol/L (3.5-5.1); Sodium Level 132 mmol/L (136-145)
== END ==
PROVIDERS: PCP Family Medicine; Referring Provider Physician Assistant; Visit Provider Physician Assistant
DX: Z01.818 Encounter for other preprocedural examination (principal); Z01.810 Encounter for preprocedural cardiovascular examination
CPT/HCPCS: 36415; 80048; 85027; 93005

== ENCOUNTER → 2019-05-31 15:33 | Outpatient (CLI) | payer BC, SELFPAY ==
[2019-04-02 13:51] VITALS: BMI 24.3
[2019-05-31 17:42] LABS: Vitamin D,25 Hydroxy 62.1 ng/mL
[2019-05-31 17:46] LABS: Erythrocyte Sedimentation Rate 4 mm/hr (0-30)
[2019-05-31 17:59] LABS: CRP < 2.90 mg/L (0.0-3.0); Free T3 2.3 pg/mL (2.18-3.98); T4 Free Direct 0.97 ng/dL (0.76-1.46); T4 Total, Thyroxin 9.3 ug/dL (4.8-13.9); Thyroid Stim Hormone (TSH) 3.62 uIU/mL (0.358-3.74)
[2019-06-02 16:37] LABS: ANTINUCLEAR ANTIBODIES DIRECT Negative (Negative)
[2019-06-03 16:08] LABS: Thyroxin Bind Glob (TBG) 18 ug/mL (13-39)
[2019-06-04 00:39] LABS: Thyroglobulin Antibody < 1.0 IU/mL (0.0-0.9); Thyroid Peroxidase AB 115 IU/mL (0-34)
== END ==
PROVIDERS: PCP Family Medicine; Visit Provider Family Medicine
DX: E03.9 Hypothyroidism, unspecified (principal); M32.9 Systemic lupus erythematosus, unspecified
CPT/HCPCS: 36415; 82306; 84436; 84439; 84442; 84443; 84481; 85652; 86038; 86140; 86225; 86235; 86376; 86800

== ENCOUNTER → 2019-12-24 12:00 | Outpatient (CLI) | payer BC, SELFPAY ==
[2019-06-21 11:42] VITALS: BMI 24.3
--- NOTE | 2019-12-24 12:04 | EKG12_ITS ---
Test Reason : PRE OP Blood Pressure : / mmHG Vent. Rate : 063 BPM Atrial Rate : 063 BPM P-R Int : 196 ms QRS Dur : 078 ms QT Int : 384 ms P-R-T Axes : 067 045 057 degrees QTc Int : 392 ms Normal sinus rhythm Nonspecific T wave abnormality Abnormal ECG Confirmed by ANNA TAYLOR, GAMA ([id number]), legal editor MAURILIO REY ([id number]) on 12/28/2019 11:29:31 AM Referred By: Don Larson Confirmed By:GAMA CASTILLO MD
[2019-12-24 13:26] LABS: Erythrocyte Sedimentation Rate 4 mm/hr (0-30)
[2019-12-24 13:28] LABS: Hematocrit 35.8 % (37-47); Hemoglobin 11.8 g/dL (12.0-15.0); Mean Corpuscular Hgb 31.5 pg (27.0-32.0); Mean Corpuscular Volume 95.5 fL (81-99); Platelet Count 209 K/mm3 (150-450); RBC Distribution Width CV 12.7 % (11.6-14.6); RBC Distribution Width SD 44.6 fl (35.1-43.9); Red Blood Count 3.75 M/mm3 (4.2-5.4); White Blood Count 5.7 K/mm3 (4.4-11.0)
[2019-12-24 13:47] LABS: Anion Gap 5 (5-15); BUN 14 mg/dL (7-18); BUN/Creat Ratio 24.1 RATIO (10-20); CRP < 2.90 mg/L (0.0-3.0); Chloride 101 mmol/L (98-107); Creatinine, Serum 0.58 mg/dL (0.55-1.02); EST Glomerular Filtration Rate 115 mL/min (>60); Est Glom Filt Rate - Afr Amer 139 mL/min (>60); Glucose 87 mg/dL (74-106); Sodium Level 136 mmol/L (136-145)
== END ==
PROVIDERS: PCP Family Medicine; Referring Provider Orthopaedic Surgery; Visit Provider Orthopaedic Surgery
DX: Z01.810 Encounter for preprocedural cardiovascular examination (principal); M32.9 Systemic lupus erythematosus, unspecified
CPT/HCPCS: 36415; 80048; 85027; 85652; 86140; 87635; 93005; C9803; U0003

== ENCOUNTER → 2020-01-12 16:03 | Outpatient (CLI) | payer BC, SELFPAY ==
[2019-06-21 11:42] VITALS: BMI 24.3
[2020-01-17 14:19] LABS: HPV APTIMA, High Risk Negative (Negative); HPV Reflexed? YES, CHARGE PATIENT
== END ==
PROVIDERS: PCP Family Medicine; Visit Provider Obstetrics & Gynecology
DX: Z12.4 Encounter for screening for malignant neoplasm of cervix (principal)
CPT/HCPCS: 87624; 88175; G0145

== ENCOUNTER 2020-04-03 18:00 | Outpatient (RCR) | payer BC, SELFPAY ==
[2019-06-21 11:42] VITALS: BMI 24.3
--- NOTE | 2020-02-17 14:01 | HP.OTEVAL_ITS ---
Patient's Visit Information CHASITY ARIAS is a 54 year old F, referred to Occupational Therapy by Blue Harrison PA-C, with a diagnosis of left CTS. Date of Evaluation: 02/17/20 Occupational Therapist: Hue Ren, OLEKSANDRR/Royal, CHT - Subjective This 54 year old female was seen for OT eval with dx of CTS left hand. right right CTR and left . pt states she had issues with CTS for about ten years prior to having sx. pt states she has noticed difficulty with FMS, weakness and difficulty with opening containers. 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 and would like to return to her PLOF. 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 Pt will demo an increase in lateral and tripod pinch by 2# to increase pts independent with opening baggies, containers at PLOF by D/C. Goal:: Pt will demo an increase in wrist ROM equal to unaffected wrist to return pt to PLOF with grooming, dressing and home mtg tasks by D/C Goal:: Pt will report pain no greater than 1/10 with use of affected hand with BADLs and IADLs by d/c. Goal:: pt will demo the ability to open small bottle tops ind. by d.c. pt will report ind, with manipulating stacks of paper without dropping any by d.c Goal:: Pt will demo understanding of scar mtg. by end of 2nd session to increase tissue extensibility to limit scar adhesions and allow full tendons function by d/c. Goal:: Pt will demo understanding of joint protection and ergonomics when performing BADLs and IADLs by d/c. Pt will demo understanding of adaptive Equipment use to decrease stress on joints to allow pt to perform BADSL and IADLS at HASMUKH level. - Rehabilitation General Assessment: PT demo with a left pinful hypertrophic scar, a decrease in functional strength and ROM limiting pts ind. with ADLS and IADLs. Pt would benefit from skilled OT 1-2x week for 4 weeks to decrease pts pain, increase her ROM and strength to return pt to PLOF. Rehabilitation Potential: Good - Anticipated Interventions A/AAROM/PROM, Strengthening, Scar Care, Desensitization, Modalities, Joint Protection/Energy Conservation, Ergonomic Education - Visit Plan Frequency: 1-2x /Week Duration: 4 Weeks General Plan: initiate USx 10 min 100% 1.2 3.3 mhz to left scar, to decrease soft tissue adhesions, ed, pt on scar mtg, joint protection and ad. eq. Bike ergo- initiate PRE and thumb stabilization ex. TEXT: Thank you for the opportunity to evaluate your patient. For Medicare and Medicare HMO plans, please review the plan of care and approve it. It will need to be FAXED BACK to us at [phone] for Medicare purposes. Please let me know if there are questions or concerns regarding this plan of care. Physician Signature: __Date:
--- NOTE | 2020-07-13 14:03 | HP.OT.NRP ---
CHASITY ARIAS was seen in my office for initial evaluation on 02/17/20. The following Plan of Care was established for this patient: Initial Frequency: 1-2x /Week Initial Duration: 4 Weeks Plan: pt to call if needs Anticipated Interventions: A/AAROM/PROM, Strengthening, Scar Care, Desensitization, Modalities, Joint Protection/Energy Conservation, Ergonomic Education This patient was last seen in our office 04/03/20. Pertinent comments regarding their Occupational therapy will appear below: Pt was seen for 5 OT visits and made gains in strength and function/ Pt was last seen 04/03/20 and at this time has not scheduled further apts and is d/c at this time. At this point I will be discontinuing this patient from occupational therapy. I would be happy to see this patient again in the future if found appropriate by the physician. Thank you! Hue Ren, OTR/L, CHT
== END 2020-04-03 19:00 | disposition home or self-care (01) ==
LOC: OT 18:00
PROVIDERS: PCP Family Medicine; Referring Provider Physician Assistant; Visit Provider Physician Assistant
DX: G56.02 Carpal tunnel syndrome, left upper limb (principal)
CPT/HCPCS: 97035; 97140; 97166

== ENCOUNTER → 2020-04-10 12:21 | Outpatient (CLI) | payer BC, SELFPAY ==
[2019-06-21 11:42] VITALS: BMI 24.3
[2020-04-10 12:46] LABS: Absolute Lymphocyte Count 1.96 X10^3/uL (0.83-4.51); Absolute Neutrophil Count 3.1 X10^3/uL (2.0-7.7); Basophil# 0.04 X10^3/uL; Basophil% 0.7 % (0-1); Eosinophil# 0.07 X10^3/uL; Eosinophils% 1.2 % (0-5); Hemoglobin 12.7 g/dL (12.0-15.0); Lymphocyte # 1.96 X10^3/ul (4.0); Lymphocyte % 34.8 % (19-41); Mean Corp Hgb Conc 33.4 g/dL (32-36); Mean Corpuscular Hgb 31.4 pg (27.0-32.0); Mean Corpuscular Volume 94.1 fL (81-99); Mean Platelet Vol. 11.8 fl (6.2-12.0); Monocyte# 0.47 X10^3/uL; Monocyte% 8.3 % (0-10); NRBC Flagged by Analyzer 0 % (0-5); Neutrophil # 3.09 X10^3/uL (2.7-7.7); Neutrophil % 54.8 % (47-70); Platelet Count 237 K/mm3 (150-450); RBC Distribution Width SD 41.9 fl (35.1-43.9); Red Blood Count 4.04 M/mm3 (4.2-5.4); White Blood Count 5.6 K/mm3 (4.4-11.0)
[2020-04-10 13:29] LABS: ALB/GLOB Ratio 1.1 RATIO (0.9-2.4); AST(SGOT) 23 U/L (15-37); Alanine Aminotransfer ALT/SGPT 26 U/L (13-56); Albumin, Serum 4.2 g/dL (3.2-5.0); Alkaline Phosphatase 47 U/L (45-117); Anion Gap 6 (5-15); BUN 7 mg/dL (7-18); BUN/Creat Ratio 11.5 RATIO (10-20); CRP < 2.90 mg/L (0.0-3.0); Calcium,Total 9.3 mg/dL (8.5-10.1); Chloride 101 mmol/L (98-107); Creatinine, Serum 0.61 mg/dL (0.55-1.02); EST Glomerular Filtration Rate 109 mL/min (>60); Est Glom Filt Rate - Afr Amer 131 mL/min (>60); Globulin 3.7 g/dL (2.2-4.2); Glucose 82 mg/dL (74-106); Potassium 3.9 mmol/L (3.5-5.1); Protein, Total 7.9 g/dL (6.4-8.2); Sodium Level 135 mmol/L (136-145)
== END ==
PROVIDERS: PCP Family Medicine; Visit Provider Internal Medicine Rheumatology
DX: M32.9 Systemic lupus erythematosus, unspecified (principal)
CPT/HCPCS: 36415; 80053; 85025; 86140

== ENCOUNTER → 2020-06-16 09:24 | Outpatient (CLI) | payer BC, SELFPAY ==
[2019-06-21 11:42] VITALS: BMI 24.3
[2020-06-16 09:56] LABS: Absolute Lymphocyte Count 1.38 X10^3/uL (0.83-4.51); Absolute Neutrophil Count 2.9 X10^3/uL (2.0-7.7); Basophil# 0.04 X10^3/uL; Basophil% 0.8 % (0-1); Eosinophil# 0.08 X10^3/uL; Eosinophils% 1.7 % (0-5); Hematocrit 39.3 % (37-47); Hemoglobin 12.8 g/dL (12.0-15.0); Lymphocyte # 1.38 X10^3/ul (4.0); Lymphocyte % 28.8 % (19-41); Mean Corp Hgb Conc 32.6 g/dL (32-36); Mean Corpuscular Hgb 31.5 pg (27.0-32.0); Mean Corpuscular Volume 96.8 fL (81-99); Mean Platelet Vol. 12.2 fl (6.2-12.0); Monocyte# 0.36 X10^3/uL; Monocyte% 7.5 % (0-10); NRBC Flagged by Analyzer 0 % (0-5); Neutrophil # 2.93 X10^3/uL (2.7-7.7); Platelet Count 229 K/mm3 (150-450); RBC Distribution Width CV 13.2 % (11.6-14.6); Red Blood Count 4.06 M/mm3 (4.2-5.4); White Blood Count 4.8 K/mm3 (4.4-11.0)
[2020-06-16 10:28] LABS: ALB/GLOB Ratio 1.1 RATIO (0.9-2.4); AST(SGOT) 15 U/L (15-37); Alanine Aminotransfer ALT/SGPT 22 U/L (13-56); Albumin, Serum 3.9 g/dL (3.2-5.0); Alkaline Phosphatase 50 U/L (45-117); Anion Gap 4 (5-15); BUN 10 mg/dL (7-18); BUN/Creat Ratio 16.1 RATIO (10-20); CRP < 2.90 mg/L (0.0-3.0); Calcium,Total 9.1 mg/dL (8.5-10.1); Chloride 107 mmol/L (98-107); Creatinine, Serum 0.62 mg/dL (0.55-1.02); EST Glomerular Filtration Rate 106 mL/min (>60); Est Glom Filt Rate - Afr Amer 128 mL/min (>60); Globulin 3.7 g/dL (2.2-4.2); Glucose 97 mg/dL (74-106); Potassium 3.5 mmol/L (3.5-5.1); Protein, Total 7.6 g/dL (6.4-8.2); Sodium Level 139 mmol/L (136-145)
== END ==
PROVIDERS: PCP Family Medicine; Visit Provider Internal Medicine Rheumatology
DX: M32.9 Systemic lupus erythematosus, unspecified (principal)
CPT/HCPCS: 36415; 80053; 85025; 86140

== ENCOUNTER → 2020-06-26 12:19 | Outpatient (CLI) | payer BC, SELFPAY ==
[2019-06-21 11:42] VITALS: BMI 24.3
--- NOTE | 2020-06-26 12:40 | RAD_ITS ---
STUDY: X-RAY - LEFT KNEE REASON FOR EXAM: Chronic left knee pain and swelling, lupus. TECHNIQUE: 2 view(s) of the knee. COMPARISON: None. FINDINGS: Normal visualized distal femur. Normal visualized proximal tibia and fibula. Normal proximal tibiofibular articulation. Normal medial femorotibial compartment. There is moderate joint space narrowing of the lateral femorotibial compartment. Normal patellofemoral articulation. There is a small joint effusion. RAD/Knee 1 or 2 Views IMPRESSION: Arthrosis of the lateral femorotibial compartment. Small joint effusion. Electronically Signed: Yaya Paul MD at 14:49 EDT Tel , Service support ,
--- NOTE | 2020-06-26 12:45 | RAD_ITS ---
STUDY: X-RAY - RIGHT KNEE REASON FOR EXAM: Chronic right knee pain and swelling, lupus. TECHNIQUE: 2 view(s) of the knee. COMPARISON: None. FINDINGS: Normal visualized distal femur. Normal visualized proximal tibia and fibula. Normal proximal tibiofibular articulation. Normal medial femorotibial compartment. There is moderate joint space narrowing of the lateral femorotibial compartment. Normal patellofemoral articulation. The soft tissue structures are unremarkable. RAD/Knee 1 or 2 Views IMPRESSION: Arthrosis of the lateral femorotibial compartment. Electronically Signed: Yaya Paul MD at 14:44 EDT Tel , Service support ,
== END ==
PROVIDERS: PCP Family Medicine; Referring Provider Internal Medicine Rheumatology; Visit Provider Internal Medicine Rheumatology
DX: M19.90 Unspecified osteoarthritis, unspecified site (principal)
CPT/HCPCS: 73560

== ENCOUNTER → 2020-08-09 09:00 | Outpatient (CLI) | payer BC, SELFPAY ==
[2019-06-21 11:42] VITALS: BMI 24.3
[2020-08-09 09:20] LABS: Absolute Lymphocyte Count 1.59 X10^3/uL (0.83-4.51); Absolute Neutrophil Count 2.2 X10^3/uL (2.0-7.7); Basophil# 0.04 X10^3/uL; Basophil% 0.9 % (0-1); Eosinophil# 0.07 X10^3/uL; Eosinophils% 1.6 % (0-5); Hematocrit 37.9 % (37-47); Hemoglobin 12.5 g/dL (12.0-15.0); Lymphocyte # 1.59 X10^3/ul (0.83-4.51); Lymphocyte % 37.1 % (19-41); Mean Platelet Vol. 11.7 fl (6.2-12.0); Monocyte# 0.39 X10^3/uL; Monocyte% 9.1 % (0-10); NRBC Flagged by Analyzer 0 % (0-5); Neutrophil # 2.19 X10^3/uL (2.7-7.7); Neutrophil % 51.1 % (47-70); Platelet Count 225 K/mm3 (150-450); RBC Distribution Width CV 13.2 % (11.6-14.6); RBC Distribution Width SD 45.6 fl (35.1-43.9); Red Blood Count 4.03 M/mm3 (4.2-5.4); White Blood Count 4.3 K/mm3 (4.4-11.0)
[2020-08-09 09:45] LABS: ALB/GLOB Ratio 1.1 RATIO (0.9-2.4); AST(SGOT) 13 U/L (15-37); Alanine Aminotransfer ALT/SGPT 23 U/L (13-56); Albumin, Serum 3.9 g/dL (3.2-5.0); Alkaline Phosphatase 47 U/L (45-117); Anion Gap 3 (5-15); BUN 11 mg/dL (7-18); BUN/Creat Ratio 16.8 RATIO (10-20); CRP < 2.90 mg/L (0.0-3.0); Calcium,Total 8.9 mg/dL (8.5-10.1); Chloride 106 mmol/L (98-107); Creatinine, Serum 0.66 mg/dL (0.55-1.02); EST Glomerular Filtration Rate 100 mL/min (>60); Est Glom Filt Rate - Afr Amer 121 mL/min (>60); Globulin 3.6 g/dL (2.2-4.2); Glucose 91 mg/dL (74-106); Potassium 3.9 mmol/L (3.5-5.1); Protein, Total 7.5 g/dL (6.4-8.2); Sodium Level 136 mmol/L (136-145)
== END ==
PROVIDERS: PCP Family Medicine; Referring Provider Internal Medicine Rheumatology; Visit Provider Internal Medicine Rheumatology
DX: M32.9 Systemic lupus erythematosus, unspecified (principal)
CPT/HCPCS: 36415; 80053; 85025; 86140

== ENCOUNTER → 2020-09-06 12:07 | Outpatient (CLI) | payer BC, SELFPAY ==
[2019-06-21 11:42] VITALS: BMI 24.3
[2020-09-06 12:40] LABS: Basophil# 0.04 X10^3/uL; Basophil% 0.8 % (0-1); Eosinophil# 0.04 X10^3/uL; Eosinophils% 0.8 % (0-5); Hematocrit 36.3 % (37-47); Hemoglobin 11.7 g/dL (12.0-15.0); Lymphocyte % 32.8 % (19-41); Mean Corp Hgb Conc 32.2 g/dL (32-36); Mean Corpuscular Hgb 30.9 pg (27.0-32.0); Mean Corpuscular Volume 95.8 fL (81-99); Mean Platelet Vol. 11.8 fl (6.2-12.0); Monocyte# 0.37 X10^3/uL; Monocyte% 7.1 % (0-10); NRBC Flagged by Analyzer 0 % (0-5); Neutrophil # 3.02 X10^3/uL (2.7-7.7); Neutrophil % 58.1 % (47-70); Platelet Count 228 K/mm3 (150-450); RBC Distribution Width CV 13.3 % (11.6-14.6); RBC Distribution Width SD 46.5 fl (35.1-43.9); Red Blood Count 3.79 M/mm3 (4.2-5.4); White Blood Count 5.2 K/mm3 (4.4-11.0)
== END ==
PROVIDERS: PCP Family Medicine; Referring Provider Family Medicine; Visit Provider Family Medicine
DX: Z51.81 Encounter for therapeutic drug level monitoring (principal)
CPT/HCPCS: 36415; 85025

== ENCOUNTER → 2020-09-27 08:57 | Outpatient (CLI) | payer BC, SELFPAY ==
[2019-06-21 11:42] VITALS: BMI 24.3
[2020-09-27 09:26] LABS: Absolute Lymphocyte Count 1.26 X10^3/uL (0.83-4.51); Absolute Neutrophil Count 2.5 X10^3/uL (2.0-7.7); Basophil# 0.04 X10^3/uL; Basophil% 0.9 % (0-1); Eosinophil# 0.06 X10^3/uL; Eosinophils% 1.4 % (0-5); Hematocrit 39.8 % (37-47); Lymphocyte # 1.26 X10^3/ul (0.83-4.51); Lymphocyte % 29.3 % (19-41); Mean Corp Hgb Conc 32.7 g/dL (32-36); Mean Corpuscular Hgb 31.3 pg (27.0-32.0); Mean Corpuscular Volume 95.7 fL (81-99); Mean Platelet Vol. 12.3 fl (6.2-12.0); Monocyte% 9.3 % (0-10); NRBC Flagged by Analyzer 0 % (0-5); Neutrophil # 2.53 X10^3/uL (2.7-7.7); Neutrophil % 58.9 % (47-70); Platelet Count 239 K/mm3 (150-450); RBC Distribution Width CV 13.2 % (11.6-14.6); RBC Distribution Width SD 45.8 fl (35.1-43.9); Red Blood Count 4.16 M/mm3 (4.2-5.4); White Blood Count 4.3 K/mm3 (4.4-11.0)
[2020-09-27 09:54] LABS: ALB/GLOB Ratio 1.2 RATIO (0.9-2.4); AST(SGOT) 16 U/L (15-37); Alanine Aminotransfer ALT/SGPT 22 U/L (13-56); Alkaline Phosphatase 45 U/L (45-117); Anion Gap 6 (5-15); BUN 11 mg/dL (7-18); BUN/Creat Ratio 17.2 RATIO (10-20); CRP < 2.90 mg/L (0.0-3.0); Chloride 107 mmol/L (98-107); Creatinine, Serum 0.64 mg/dL (0.55-1.02); EST Glomerular Filtration Rate 103 mL/min (>60); Est Glom Filt Rate - Afr Amer 125 mL/min (>60); Globulin 3.4 g/dL (2.2-4.2); Glucose 87 mg/dL (74-106); Potassium 3.9 mmol/L (3.5-5.1); Protein, Total 7.4 g/dL (6.4-8.2); Sodium Level 140 mmol/L (136-145)
== END ==
PROVIDERS: PCP Family Medicine; Referring Provider Internal Medicine Rheumatology; Visit Provider Internal Medicine Rheumatology
DX: M32.9 Systemic lupus erythematosus, unspecified (principal)
CPT/HCPCS: 36415; 80053; 85025; 86140

== ENCOUNTER → 2020-11-22 08:03 | Outpatient (CLI) | payer BC, SELFPAY ==
[2020-11-22 08:29] LABS: Absolute Lymphocyte Count 1.51 X10^3/uL (0.83-4.51); Absolute Neutrophil Count 2.3 X10^3/uL (2.0-7.7); Basophil# 0.05 X10^3/uL; Basophil% 1.2 % (0-1); Eosinophil# 0.07 X10^3/uL; Eosinophils% 1.6 % (0-5); Hematocrit 37.1 % (37-47); Hemoglobin 12.2 g/dL (12.0-15.0); Lymphocyte # 1.51 X10^3/ul (0.83-4.51); Lymphocyte % 35.3 % (19-41); Mean Corp Hgb Conc 32.9 g/dL (32-36); Mean Corpuscular Hgb 31.7 pg (27.0-32.0); Mean Corpuscular Volume 96.4 fL (81-99); Mean Platelet Vol. 11.9 fl (6.2-12.0); Monocyte# 0.35 X10^3/uL; Monocyte% 8.2 % (0-10); NRBC Flagged by Analyzer 0 % (0-5); Neutrophil # 2.29 X10^3/uL (2.7-7.7); Neutrophil % 53.5 % (47-70); Platelet Count 219 K/mm3 (150-450); RBC Distribution Width CV 12.8 % (11.6-14.6); RBC Distribution Width SD 45.5 fl (35.1-43.9); Red Blood Count 3.85 M/mm3 (4.2-5.4); White Blood Count 4.3 K/mm3 (4.4-11.0)
[2020-11-22 09:20] LABS: ALB/GLOB Ratio 1.1 RATIO (0.9-2.4); AST(SGOT) 18 U/L (15-37); Alanine Aminotransfer ALT/SGPT 25 U/L (13-56); Albumin, Serum 3.7 g/dL (3.2-5.0); Alkaline Phosphatase 40 U/L (45-117); Anion Gap 5 (5-15); BUN 15 mg/dL (7-18); CRP < 2.90 mg/L (0.0-3.0); Calcium,Total 9.1 mg/dL (8.5-10.1); Chloride 109 mmol/L (98-107); Creatinine, Serum 0.62 mg/dL (0.55-1.02); EST Glomerular Filtration Rate 106 mL/min (>60); Est Glom Filt Rate - Afr Amer 128 mL/min (>60); Globulin 3.5 g/dL (2.2-4.2); Glucose 87 mg/dL (74-106); Potassium 3.6 mmol/L (3.5-5.1); Protein, Total 7.2 g/dL (6.4-8.2); Sodium Level 140 mmol/L (136-145)
== END ==
PROVIDERS: PCP Family Medicine; Referring Provider Internal Medicine Rheumatology; Visit Provider Internal Medicine Rheumatology
DX: M32.9 Systemic lupus erythematosus, unspecified (principal)
CPT/HCPCS: 36415; 80053; 85025; 86140

== ENCOUNTER → 2020-12-05 18:22 | Outpatient (CLI) | payer BC, SELFPAY | PROVIDERS: PCP Family Medicine; Visit Provider Physician Assistant Surgical | DX: Z20.828 Contact with and (suspected) exposure to other viral communicable diseases (principal) | CPT/HCPCS: 87635; U0005; U0003 ==

== ENCOUNTER → 2020-12-08 08:18 | Outpatient (CLI) | payer BC, SELFPAY | PROVIDERS: PCP Family Medicine; Referring Provider Family Medicine; Visit Provider Family Medicine | DX: Z20.828 Contact with and (suspected) exposure to other viral communicable diseases (principal) | CPT/HCPCS: 87635; U0005; U0003 ==

== ENCOUNTER → 2021-01-17 08:28 | Outpatient (CLI) | payer BC, SELFPAY ==
[2021-01-17 09:22] LABS: Absolute Lymphocyte Count 1.78 X10^3/uL (0.83-4.51); Absolute Neutrophil Count 1.8 X10^3/uL (2.0-7.7); Basophil# 0.03 X10^3/uL; Basophil% 0.7 % (0-1); Eosinophil# 0.08 X10^3/uL; Eosinophils% 1.9 % (0-5); Hematocrit 36.9 % (37-47); Hemoglobin 12.3 g/dL (12.0-15.0); Lymphocyte # 1.78 X10^3/ul (0.83-4.51); Mean Corp Hgb Conc 33.3 g/dL (32-36); Mean Corpuscular Hgb 31.2 pg (27.0-32.0); Mean Corpuscular Volume 93.7 fL (81-99); Mean Platelet Vol. 12.1 fl (6.2-12.0); Monocyte# 0.41 X10^3/uL; Monocyte% 9.9 % (0-10); NRBC Flagged by Analyzer 0 % (0-5); Neutrophil # 1.83 X10^3/uL (2.7-7.7); Neutrophil % 44.3 % (47-70); Platelet Count 221 K/mm3 (150-450); RBC Distribution Width CV 13.1 % (11.6-14.6); Red Blood Count 3.94 M/mm3 (4.2-5.4); White Blood Count 4.1 K/mm3 (4.4-11.0)
[2021-01-17 09:57] LABS: ALB/GLOB Ratio 1.1 RATIO (0.9-2.4); AST(SGOT) 22 U/L (15-37); Alanine Aminotransfer ALT/SGPT 24 U/L (13-56); Albumin, Serum 3.7 g/dL (3.2-5.0); Alkaline Phosphatase 45 U/L (45-117); Anion Gap 5 (5-15); BUN 8 mg/dL (7-18); BUN/Creat Ratio 13.4 RATIO (10-20); CRP < 2.90 mg/L (0.0-3.0); Calcium,Total 8.9 mg/dL (8.5-10.1); Chloride 106 mmol/L (98-107); EST Glomerular Filtration Rate 111 mL/min (>60); Est Glom Filt Rate - Afr Amer 135 mL/min (>60); Globulin 3.5 g/dL (2.2-4.2); Glucose 90 mg/dL (74-106); Potassium 3.3 mmol/L (3.5-5.1); Protein, Total 7.2 g/dL (6.4-8.2); Sodium Level 140 mmol/L (136-145)
== END ==
PROVIDERS: PCP Family Medicine; Referring Provider Internal Medicine Rheumatology; Visit Provider Internal Medicine Rheumatology
DX: M32.9 Systemic lupus erythematosus, unspecified (principal)
CPT/HCPCS: 36415; 80053; 85025; 86140

== ENCOUNTER → 2021-03-07 11:51 | Outpatient (CLI) | payer BC, SELFPAY ==
[2021-03-07 12:41] LABS: Absolute Lymphocyte Count 1.68 X10^3/uL (0.83-4.51); Absolute Neutrophil Count 2.8 X10^3/uL (2.0-7.7); Basophil# 0.03 X10^3/uL; Basophil% 0.6 % (0-1); Eosinophil# 0.06 X10^3/uL; Eosinophils% 1.2 % (0-5); Hematocrit 36.4 % (37-47); Hemoglobin 11.7 g/dL (12.0-15.0); Lymphocyte # 1.68 X10^3/ul (0.83-4.51); Lymphocyte % 33.5 % (19-41); Mean Corp Hgb Conc 32.1 g/dL (32-36); Mean Corpuscular Volume 93.3 fL (81-99); Mean Platelet Vol. 11.9 fl (6.2-12.0); Monocyte# 0.41 X10^3/uL; Monocyte% 8.2 % (0-10); NRBC Flagged by Analyzer 0 % (0-5); Neutrophil # 2.82 X10^3/uL (2.7-7.7); Neutrophil % 56.3 % (47-70); Platelet Count 215 K/mm3 (150-450); RBC Distribution Width CV 12.9 % (11.6-14.6); RBC Distribution Width SD 44.4 fl (35.1-43.9)
[2021-03-07 13:14] LABS: ALB/GLOB Ratio 0.9 RATIO (0.9-2.4); AST(SGOT) 18 U/L (15-37); Alanine Aminotransfer ALT/SGPT 22 U/L (13-56); Albumin, Serum 3.7 g/dL (3.2-5.0); Alkaline Phosphatase 47 U/L (45-117); Anion Gap 7 (5-15); BUN 10 mg/dL (7-18); CRP < 2.90 mg/L (0.0-3.0); Chloride 105 mmol/L (98-107); Creatinine, Serum 0.56 mg/dL (0.55-1.02); EST Glomerular Filtration Rate 120 mL/min (>60); Est Glom Filt Rate - Afr Amer 146 mL/min (>60); Glucose 93 mg/dL (74-106); Potassium 3.9 mmol/L (3.5-5.1); Protein, Total 7.7 g/dL (6.4-8.2); Sodium Level 139 mmol/L (136-145)
== END ==
PROVIDERS: PCP Family Medicine; Visit Provider Internal Medicine Rheumatology
DX: M32.9 Systemic lupus erythematosus, unspecified (principal)
CPT/HCPCS: 36415; 80053; 85025; 86140

== ENCOUNTER 2021-04-24 21:15 | Emergency (ER) | payer OTHER, SELFPAY ==
[2021-04-24 21:17] VITALS: BP 125/78; PULSE 68; RESP 16; TEMP 36.4; O2SAT 98; BMI 24.8
--- NOTE | 2021-04-24 22:14 | CT_ITS ---
STUDY: CTA HEAD AND NECK WITH CONTRAST REASON FOR EXAM: Female, 55 years old. Paresthesias with vision change. RADIATION DOSAGE (If Supplied By Facility): CTDIvol = ( 25.82 ) mGy, DLP = ( 1370.96 ) mGycm TECHNIQUE: CT angiography was performed with a multi-detector CT scanner. Data acquisition was obtained from the skull base through the vertex following intravenous administration of IV 100mL [id number]-[id number]. MIP images were reconstructed from the axial data set. Post-processing of the angiographic images was performed, with multiplanar reformation and 3D reconstruction. Individualized dose optimization techniques were used for this CT. COMPARISON: No relevant priors. FINDINGS: Normal bilateral petrous carotid arteries. Normal right cavernous carotid artery with a normal supraclinoid bifurcation. Normal left cavernous carotid artery with a normal supraclinoid bifurcation. Normal right A1 segments of the anterior cerebral artery. Normal left A1 segments of the anterior cerebral artery. Normal intact anterior communicating artery (ACOM). Normal bilateral A2 segments of the anterior cerebral arteries. Normal right M1 and M2 segments of the middle cerebral arteries, with a normal M1 bifurcation. Normal left M1 and M2 segments of the middle cerebral arteries, with a normal M1 bifurcation. Normal right posterior communicating artery (PCOM). Normal left posterior communicating artery (PCOM). Normal bilateral vertebral arteries. Normal basilar artery with a normal basilar bifurcation. The visualized bilateral superior cerebellar (SCA) arteries are normal. Normal bilateral P1, P2 and visualized P3 segments of the posterior cerebral arteries. There is no demonstrated aneurysm of the point lay ir[place] of [place]. There is no demonstrated abnormality of the visualized brain. AORTIC ARCH: Normal visualized aortic arch. Normal origins of the brachiocephalic, left common carotid, and left subclavian arteries. RIGHT CAROTID ARTERIES: Normal right common carotid artery (CCA). Normal right common carotid bulb. Normal origin of the right internal carotid (ICA) artery without a hemodynamically significant stenosis. Normal visualized cervical portion of the right internal carotid artery. Normal origin of the right external carotid artery (ECA). LEFT CAROTID ARTERIES: Normal left common carotid artery (CCA). Normal left common carotid bulb. Normal origin of the left internal carotid (ICA) artery without a hemodynamically significant stenosis. Normal visualized cervical portion of the left internal carotid artery. Normal origin of the left external carotid artery (ECA). VERTEBRAL ARTERIES: Normal bilateral vertebral arteries. CT/CTA Head AND Neck W/ Contrast IMPRESSION: Normal CTA Head and neck with contrast. Electronically Signed: Sanchez Palmer DO at 23:39 [facility] ,
[2021-04-24] MEDS: 0.9% Normal Saline 1,000 ML 999 ML IV (22:31)
[2021-04-24 22:42] LABS: Absolute Lymphocyte Count 1.74 X10^3/uL (0.83-4.51); Absolute Neutrophil Count 2.2 X10^3/uL (2.0-7.7); Basophil# 0.03 X10^3/uL; Basophil% 0.7 % (0-1); Eosinophil# 0.17 X10^3/uL; Eosinophils% 3.7 % (0-5); Hematocrit 33.5 % (37-47); Hemoglobin 11.3 g/dL (12.0-15.0); Lymphocyte # 1.74 X10^3/ul (0.83-4.51); Lymphocyte % 37.8 % (19-41); Mean Corp Hgb Conc 33.7 g/dL (32-36); Monocyte# 0.42 X10^3/uL; Monocyte% 9.1 % (0-10); NRBC Flagged by Analyzer 0 % (0-5); Neutrophil # 2.23 X10^3/uL (2.7-7.7); Neutrophil % 48.5 % (47-70); Platelet Count 200 K/mm3 (150-450); RBC Distribution Width CV 12.7 % (11.6-14.6); RBC Distribution Width SD 43.2 fl (35.1-43.9); Red Blood Count 3.64 M/mm3 (4.2-5.4); White Blood Count 4.6 K/mm3 (4.4-11.0)
--- NOTE | 2021-04-24 22:42 | EDS_ITS ---
HPI History of Present Illness Chief Complaint: Numb/Ting Narrative Narrative: Patient is a 55-year-old female with past medical history of migraines lupus and Annette's thyroiditis. She states on Friday she developed a headache with loss of vision in her right eye. She states that she did not think too much of this as she has had migraines in the past that have caused such symptoms. She states that typically the change in vision only last 20 minutes and then resolve. She states however that she is not have complete loss of vision anymore but the vision has been different in the right eye since its onset. She reports that she has been tested multiple times for Covid as she has multiple exposures but has been negative with each test. She states she saw her census enumerator today and was informed that her eye is normal. However as symptoms have persisted she presents to the ER for further evaluation and imaging studies [facility] Medical History (Updated 04/25/21 @ 00:[address] Hong Lincoln DO) Anemia Asthma Chronic cough Fibromyalgia Annette's thyroiditis Heart murmur Hypothyroidism Lupus Macular degeneration Systemic lupus erythematosus Home Medications levothyroxine 75 mcg PO DAILY 02/08/15 [History Last Taken Unknown] ascorbic acid (vitamin C) 500 mg PO DAILY@0800 08/10/18 [History Last Taken Unknown] cetirizine 10 mg PO DAILY 08/10/18 [History Last Taken Unknown] cholecalciferol (vitamin D3) 1,000 unit PO DAILY 08/10/18 [History Last Taken Unknown] docusate sodium 200 mg PO DAILY 08/10/18 [History Last Taken Unknown] omega 8-vkv-rpc-fish oil 1 ea PO DAILY 08/10/18 [History Last Taken 08/06/18] vitamin B complex 1 ea PO DAILY 08/10/18 [History Last Taken Unknown] celecoxib 100 mg capsule 100 mg PO BID 11/05/20 [History Last Taken Unknown] mycophenolate mofetil 500 mg tablet 500 mg PO BID 11/05/20 [History Last Taken Unknown] pantoprazole 20 mg tablet,delayed release 20 mg PO DAILY 11/05/20 [History Last Taken Unknown] Allergy/AdvReac Type Severity Reaction Status Date / Time hydroxychloroquine Allergy Mild Verified 04/24/21 21:19 [From Plaquenil] Family History Father Heart disease Hypertension Thyroid disorder Brother Hypertension Thyroid disorder High cholesterol Mother Cancer CLL Surgical History history of cystoscopy/dilation History of dilatation and curettage History of endoscopy History of tonsillectomy and adenoidectomy History of tubal ligation Social History (Updated 04/24/21 @ 22:[address] Alessandra Smith MD) household members: spouse Smoking Status: Never smoker second hand exposure: No alcohol intake: current alcohol intake frequency: 0-2 drinks per day Alcohol type: beer and wine substance use type: does not use caffeine: Yes (4/day) what type of physical activity do you participate in: bicycling and aerobics frequency: daily ROS ROS ED Constitutional Constitutional ED: Denies chills or fever(s) Eyes Eyes: Reports change in vision ENT ENT ED: Denies sore throat Cardiovascular Cardiovascular: Denies chest pain Respiratory/Chest Respiratory/Chest: Denies cough or dyspnea Gastrointestinal Gastrointestinal: Reports nausea; Denies abdominal pain, diarrhea or vomiting Genitourinary Genitourinary ED: Denies dysuria Musculoskeletal Musculoskeletal: Denies myalgias or neck pain Integumentary Denies rash Neurologic Neurologic: Reports headache(s) Hematologic/Lymphatic Hematologic/Lymphatic: Denies easy bleeding or easy bruising EXAM Physical Exam Const Vital Signs: 04/24/21 21:17 Temperature 97.5 F L Temperature Source Temporal Pulse Rate 68 Respiratory Rate 16 Blood Pressure 125/78 H Blood Pressure Mean 93 Pulse Ox 98 Oxygen Delivery Method Room Air Positive well nourished and well developed General Appearance ED: well developed HEENT Reports moist mucous membranes Eyes PERRL and EOMs intact bilaterally Neck supple Neck Narrative: No carotid bruit noted Resp normal respiratory effort and clear to auscultation bilaterally Cardio regular rate and regular rhythm GI normal to inspection, nondistended, normoactive bowel sounds, non-tender, non- distended and no masses Auscultation: normoactive bowel sounds Palpation: soft Extremity normal to inspection Neuro oriented x3 and CN's II-XII intact bilaterally Neuro Narrative: Cranial nerves II through XII are grossly intact there are no focal neurologic deficit. No pronator drift no dysmetria no truncal ataxia. Patient has an NIH stroke scale score of one for reported vision change in the right eye. Sensorium / Orientation: alert Motor Exam: strength 5/5 throughout Psych mental status grossly normal Skin no rashes or lesions noted MDM MDM MDM Narrative Medical decision making narrative: Patient presented to the ER reporting mild paresthesias as well as persistent vision change in the right eye. Her NIH stroke scale score was 1 based on her reported vision but she had no decrease in sensation when tested. She also states that she seen her eye doctor and that reportedly her testing did not reveal any obvious cause for her persistent change in vision. With concern this could be neurologic in nature I did elect to perform a CTA of the head neck as well as basic laboratory studies looking for electrolyte derangement. The CT revealed no acute findings such as bleed stricture or mass. Labs showed that her TSH is 0.03 but otherwise no clinically significant changes. On reevaluation she is resting comfortably and exam remains at her baseline with stroke scale score of 1 and persistent reported right-sided vision changes. At this time patient's had symptoms for 4 to 5 days. She has a low stroke scale score and her CTA is normal. I do feel that she will need her TSH further evaluated as well as an MRI because of her persistent symptoms but based on the fact that her stroke scale score is low at 1 and symptoms have been present for multiple days and her CTA reveals no acute findings I feel that this can be further done on an outpatient basis without admission at this time. The plan of care was discussed with the patient who is agreeable to it and therefore she will be discharged Lab Data Attestation: I reviewed the patient's lab results. Labs: Laboratory Results - last 24 hr 04/24/21 04/24/21 22:31 22:31 WBC 4.6 RBC 3.64 L Hgb 11.3 L Hct 33.5 L MCV 92.0 MCH 31.0 MCHC 33.7 RDW Std Deviation 43.2 RDW Coeff of Ludwig 12.7 Plt Count 200 MPV 12.0 Immature Gran % (Auto) 0.200 Neut % (Auto) 48.5 Lymph % (Auto) 37.8 Franklin % (Auto) 9.1 Eos % (Auto) 3.7 Baso % (Auto) 0.7 Absolute Neuts (auto) 2.2 Absolute Lymphs (auto) 1.74 Nucleated RBC % 0 Sodium 143 Potassium 3.5 Chloride 110 H Carbon Dioxide 25.0 Anion Gap 8 BUN 13 Creatinine 0.66 Estim Creat Clear Calc 77.07 Est GFR (MDRD) Af Amer 120 Est GFR (MDRD) Non-Af 99 BUN/Creatinine Ratio 19.7 Glucose 79 Calcium 8.9 Magnesium 2.1 TSH 0.03 L Radiography Diagnostic Testing: Clinical Impression(s) from Imaging Studies Head/Neck CTA 04/24/21 22:14 IMPRESSION: Normal CTA Head and neck with contrast. Electronically Signed: Sanchez GoinsonDO at 23:39 EST Reading Location ID and State: [facility] / [place] Tel [phone], Service support , Discharge Plan Triage Chief Complaint: Numb/Ting ED Provider: Hong Lincoln Dx/Rx/DC Orders Clinical Impression: Paresthesia, Alteration in vision Instructions: How the Eye Works, ED Paraesthesias Prescriptions: No Action mycophenolate mofetil [CellCept] 500 mg tablet 500 mg PO BID RF: 0 celecoxib [Celebrex] 100 mg capsule 100 mg PO BID RF: 0 pantoprazole [Protonix] 20 mg tablet,delayed release (DR/EC) 20 mg PO DAILY RF: 0 levothyroxine 75 MCG tablet 75 mcg PO DAILY RF: 0 ascorbic acid (vitamin C) 500 MG tablet 500 mg PO DAILY@0800 RF: 0 docusate sodium 100 MG capsule 200 mg PO DAILY RF: 0 vitamin B complex 1 EACH capsule 1 ea PO DAILY RF: 0 cholecalciferol (vitamin D3) 1,000 UNIT tablet 1,000 unit PO DAILY RF: 0 omega 7-fsx-acy-fish oil 1 EACH capsule 1 ea PO DAILY RF: 0 cetirizine 10 MG capsule 10 mg PO DAILY RF: 0 Primary Care Provider: Fabián Ruiz Referrals: Fabián Ruiz DO [Primary Care Provider] - Activity Restrictions/Additional Instructions: Please follow-up with your family doctor to discuss repeating a TSH level as well as accompanying thyroid function studies based on your low TSH value today. Please also discuss obtaining an MRI based on your symptoms but a negative CTA Disposition Disposition: Home, Self Care Discharge Date/Time: 04/25/21 01:06
[2021-04-24 23:12] LABS: Anion Gap 8 (5-15); BUN 13 mg/dL (7-18); BUN/Creat Ratio 19.7 RATIO (10-20); Calcium,Total 8.9 mg/dL (8.5-10.1); Chloride 110 mmol/L (98-107); Creatinine, Serum 0.66 mg/dL (0.55-1.02); EST Glomerular Filtration Rate 99 mL/min (>60); Est Glom Filt Rate - Afr Amer 120 mL/min (>60); Estimated Creatinine Clearance 77.07 ml/min; Glucose 79 mg/dL (74-106); Magnesium 2.1 mg/dL (1.6-2.6); Potassium 3.5 mmol/L (3.5-5.1); Sodium Level 143 mmol/L (136-145); Thyroid Stim Hormone (TSH) 0.03 uIU/mL (0.358-3.74)
== END 2021-04-25 01:06 | disposition home or self-care (01) ==
PROVIDERS: Emergency Provider Emergency Medicine; PCP Family Medicine; Visit Provider Emergency Medicine
DX: R20.2 Paresthesia of skin (principal); H53.8 Other visual disturbances; D64.9 Anemia, unspecified; E06.3 Autoimmune thyroiditis; M79.7 Fibromyalgia; Z79.899 Other long term (current) drug therapy
CPT/HCPCS: 70496; 70498; 80048; 83735; 84443; 85025; 99284; J7030; Q9967; A4216

== ENCOUNTER 2021-05-02 12:50 | Outpatient (CLI) | payer OTHER, SELFPAY ==
--- NOTE | 2021-05-02 12:53 | BI_ITS ---
MAMMOGRAPHY - BILATERAL SCREENING REASON FOR EXAM: Female, 55 years old. Routine annual screening examination. PERTINENT HISTORY: Aunts with breast cancer. TECHNIQUE: Digital bilateral breast belinda (3D mammographic acquisition) in the CC and MLO projections. 2-D mediolateral oblique (MLO) and craniocaudad (CC) views of both breasts were obtained. CAD: Full Field Digital Mammography with Computer Added Detection was performed. COMPARISON: Comparison is made with prior examination dated 11/29/2017 and 10/18/2016. FINDINGS: Breast Composition: There are scattered areas of fibroglandular density. There are no dominant masses or suspicious calcifications. No other significant abnormalities are identified. There has been no significant change since the prior study. BI/SCRN MAMM (CAD)W/BELINDA BILAT IMPRESSION: Stable bilateral screening mammogram. Yearly follow-up mammogram recommended. (A) ASSESSMENT CATEGORY: BIRADS Category 1: Negative. A letter regarding these results will be sent to the patient by the facility within 30 days. Approximately 10% of breast cancers are not detected by mammography. A normal mammogram should not delay biopsy of a clinically suspicious abnormality. [id number] Electronically Signed: Chapo Arias MD at 13:48 EST ,
== END 2021-05-02 23:59 | disposition short-term general hospital (02) ==
LOC: OPBI 12:51
PROVIDERS: PCP Family Medicine; Referring Provider Family Medicine; Visit Provider Family Medicine
DX: Z12.31 Encounter for screening mammogram for malignant neoplasm of breast (principal)
CPT/HCPCS: 77063; 77067

== ENCOUNTER 2021-06-06 19:21 | Emergency (ER) | payer OTHER, SELFPAY ==
[2021-06-06 19:22] VITALS: BP 135/48; PULSE 68; RESP 18; TEMP 36.1; O2SAT 99; BMI 24.0
[2021-06-06 19:29] VITALS: O2SAT 97
--- NOTE | 2021-06-06 19:49 | CT_ITS ---
INDICATION: injury EXAMINATION: CT CERVICAL SPINE - CT Spine Cervical W/O Contrast Injection TECHNIQUE: Helically acquired images were obtained of the cervical spine. 2D reformatted images were reviewed. A radiation dose optimization technique was used for this scan. IV Contrast dosage and agent: None. COMPARISON: CT head on the same evening. FINDINGS: VERTEBRAE: No fracture or traumatic subluxation. No discrete lytic or blastic abnormality. Normal alignment. Normal craniocervical junction and cervicothoracic junction. DISCS and SPINAL CANAL: Multilevel intervertebral disc height loss. This is most notable at C5-6 where there is also moderate endplate sclerotic and bony proliferative changes. Moderate degenerative endplate changes at C3-4. There is moderate facet arthropathy bilaterally at C3-4 and C4-5 levels, right greater than left. No critical stenosis. NECK SOFT TISSUES: No prevertebral soft tissue swelling. There is no cervical adenopathy. LUNG APICES: Clear. CT/Spine Cervical without Contras IMPRESSION: No fracture or malalignment. Multilevel degenerative disc and endplate changes, most notably at C5-6 and C3-4 levels. Moderate, right greater than left facet arthropathy C3-4 and C4-5 levels. Electronically Signed: Don Cline DO at 20:24 EST ,
--- NOTE | 2021-06-06 19:49 | CT_ITS ---
INDICATION: injury EXAMINATION: CT BRAIN - CT Head or Brain W/O Contrast Injection TECHNIQUE: Multiple axial images were obtained of the head without intravenous contrast. A radiation dose optimization technique was used for this scan. IV Contrast dosage and agent: None. COMPARISON: CT angiography head and neck 201908/17/2021. FINDINGS: BRAIN PARENCHYMA: No intra- or extra-axial hemorrhage. No intracranial mass or mass effect. Calvillo/white matter differentiation is maintained and there is no blurring of the basal ganglia. There is no hyperdense vessel. Posterior fossa structures are unremarkable. CSF SPACES: Appropriate for age. No hydrocephalus. Basal cisterns are patent. CALVARIUM, SKULL BASE, PARANASAL SINUSES AND MASTOID AIR CELLS: Clear. There is moderate rightward deviation bony nasal septum and a moderate-sized left middle turbinate marc bullosa. No discrete lytic or blastic abnormalities. ORBITS: Both globes, extraocular muscles, optic nerves and retrobulbar fat appear unremarkable. ASPECTS Score for Acute Strokes: 10 CT/Brain/Head without Contrast IMPRESSION: No acute intracranial pathology. Variant sinus anatomy as above with no evidence of sinusitis. Electronically Signed: Don Cline DO at 20:17 EST ,
--- NOTE | 2021-06-06 19:52 | EDS_ITS ---
HPI History of Present Illness Chief Complaint: Head Injury Informant: patient Onset/Context/Timing Onset: Today Narrative Narrative: Patient presents secondary to head injury. She was putting together a fitness trampoline when a piece snapped back and hit her in the head. No loss of consciousness. She does report nausea. No vision change. She does have a laceration to the right upper forehead. [facility] Medical History Anemia Asthma Chronic cough Eye disorder Fibromyalgia Annette's thyroiditis Headache Heart murmur Hypothyroidism Lupus Macular degeneration Systemic lupus erythematosus Vertigo Home Medications ascorbic acid (vitamin C) 500 mg PO DAILY@0800 08/10/18 [History Last Taken Unknown] cholecalciferol (vitamin D3) 1,000 unit PO DAILY 08/10/18 [History Last Taken Unknown] omega 4-wlh-qpc-fish oil 1 ea PO DAILY 08/10/18 [History Last Taken 08/06/18] vitamin B complex 1 ea PO DAILY 08/10/18 [History Last Taken Unknown] mycophenolate mofetil 500 mg tablet 500 mg PO BID 11/05/20 [History Last Taken Unknown] pantoprazole 20 mg tablet,delayed release 20 mg PO DAILY 11/05/20 [History Last Taken Unknown] biotin 5,000 mcg disintegrating tablet 10,000 mcg PO DAILY 06/06/21 [History Last Taken Unknown] celecoxib 100 mg capsule 100 mg PO DAILY cap 06/06/21 [History Last Taken Unknown] levothyroxine 100 mcg tablet 100 mcg PO DAILY 06/06/21 [History Last Taken Unknown] vit A 7,160 unit-vit C 113 mg-vit E 100 nkpz-vwsu-usbxmq tablet tab PO 06/06/21 [History Last Taken Unknown] Allergy/AdvReac Type Severity Reaction Status Date / Time hydroxychloroquine Allergy Mild Verified 06/06/21 19:22 [From Plaquenil] Family History Father Heart disease Hypertension Thyroid disorder Brother Hypertension Thyroid disorder High cholesterol White matter disease Mother Cancer CLL Surgical History History of bilateral carpal tunnel release History of colonoscopy history of cystoscopy/dilation History of dilatation and curettage History of endoscopy History of tonsillectomy and adenoidectomy History of tubal ligation Social History household members: spouse Smoking Status: Never smoker second hand exposure: No alcohol intake: current alcohol intake frequency: a few times a week Alcohol type: beer and wine substance use type: does not use caffeine: Yes (4/day) what type of physical activity do you participate in: walking, bicycling, yoga and aerobics frequency: daily ROS ROS ED Constitutional Constitutional ED: Denies chills or fever(s) Eyes Eyes: Denies change in vision ENT ENT ED: Denies sore throat Cardiovascular Cardiovascular: Denies chest pain Respiratory/Chest Respiratory/Chest: Denies cough or dyspnea Gastrointestinal Gastrointestinal: Reports nausea; Denies abdominal pain or vomiting Musculoskeletal Musculoskeletal: Denies back pain or neck pain Integumentary Reports other Details: Forehead laceration ; Denies rash Neurologic Neurologic: Reports headache(s); Denies weakness Allergic/Immunologic Allergic/Immunologic ED: Denies urticaria EXAM Physical Exam Const Vital Signs: 06/06/21 19:22 06/06/21 19:29 Temperature 97 F L Temperature Source Temporal Pulse Rate 68 Respiratory Rate 18 Respiratory Effort Normal Respiratory Depth Normal Respiratory Pattern Normal Blood Pressure 135/48 H Blood Pressure Mean 77 Pulse Ox 99 97 Oxygen Delivery Method Room Air Room Air Positive well nourished and well developed General Appearance ED: well developed HEENT HEENT Narrative: 2.5 cm linear laceration to the right upper forehead. Eyes PERRL and EOMs intact bilaterally Neck full ROM Chest Wall inspection of chest normal and palpation of chest normal Resp normal respiratory effort and clear to auscultation bilaterally Cardio regular rhythm Rate: regular rate GI non-tender Palpation: soft Extremity normal to inspection Neuro oriented x3 Neuro Narrative: No focal neurologic deficits. Sensorium / Orientation: alert Psych mental status grossly normal Skin Skin Narrative: Forehead laceration as noted above. MDM MDM MDM Narrative Medical decision making narrative: Patient sent for CT scan of head and C-spine. Radiography Diagnostic Testing: Clinical Impression(s) from Imaging Studies Brain CT 06/06/21 19:49 IMPRESSION: No acute intracranial pathology. Variant sinus anatomy as above with no evidence of sinusitis. Electronically Signed: Don Cline DO at 20:17 EST , Cervical Spine CT 06/06/21 19:49 IMPRESSION: No fracture or malalignment. Multilevel degenerative disc and endplate changes, most notably at C5-6 and C3-4 levels. Moderate, right greater than left facet arthropathy C3-4 and C4-5 levels. Electronically Signed: Don Velazcojames, at 20:24 EST , Treatment and Re-Evaluation Narrative: CT scans unremarkable. Right forehead laceration cleansed and sealed with Dermabond. Although patient does complain of a headache at this time she declines anything for pain. We will update her tetanus and discharge her home. Return instructions provided. Discharge Plan Triage Chief Complaint: Head Injury ED Provider: Irma Maynard Dx/Rx/DC Orders Clinical Impression: Closed head injury, Laceration of forehead Instructions: ED Laceration, Face: Skin Glue Prescriptions: No Action mycophenolate mofetil [CellCept] 500 mg tablet 500 mg PO BID RF: 0 pantoprazole [Protonix] 20 mg tablet,delayed release (DR/EC) 20 mg PO DAILY RF: 0 celecoxib [Celebrex] 100 mg capsule 100 mg PO DAILY RF: 0 levothyroxine [Synthroid] 100 mcg tablet 100 mcg PO DAILY RF: 0 biotin 5,000 mcg tablet,disintegrating 10,000 mcg PO DAILY RF: 0 vit A-vit C-vit H-udec-hhwquy 7,160-113-100 hctl-gh-qxoi tablet PO RF: 0 ascorbic acid (vitamin C) 500 MG tablet 500 mg PO DAILY@0800 RF: 0 vitamin B complex 1 EACH capsule 1 ea PO DAILY RF: 0 cholecalciferol (vitamin D3) 1,000 UNIT tablet 1,000 unit PO DAILY RF: 0 omega 9-bee-lsj-fish oil 1 EACH capsule 1 ea PO DAILY RF: 0 Primary Care Provider: Azalia Wu Referrals: Azalia Wu MD [Primary Care Provider] - 1 Week Disposition Disposition: Home, Self Care
[2021-06-06] MEDS: Diphth,Pertuss(Acell),Tet Vac 0.5 ML Vial IM (21:44)
== END 2021-06-06 22:06 | disposition home or self-care (01) ==
PROVIDERS: Emergency Provider Emergency Medicine; PCP Internal Medicine; Visit Provider Emergency Medicine
DX: S01.81XA Laceration without foreign body of other part of head, initial encounter (principal); Z23 Encounter for immunization; E03.9 Hypothyroidism, unspecified; X58.XXXA Exposure to other specified factors, initial encounter; Z79.899 Other long term (current) drug therapy
CPT/HCPCS: 12011; 70450; 72125; 90715; 96372; 99282

== ENCOUNTER 2021-06-11 08:14 | Outpatient (CLI) | payer OTHER, SELFPAY ==
[2021-06-11 09:19] LABS: Absolute Lymphocyte Count 1.34 X10^3/uL (0.83-4.51); Absolute Neutrophil Count 1.9 X10^3/uL (2.0-7.7); Basophil# 0.04 X10^3/uL; Basophil% 1.1 % (0-1); Eosinophil# 0.09 X10^3/uL; Eosinophils% 2.4 % (0-5); Hematocrit 38.5 % (37-47); Hemoglobin 12.3 g/dL (12.0-15.0); Lymphocyte # 1.34 X10^3/ul (0.83-4.51); Lymphocyte % 35.4 % (19-41); Mean Corp Hgb Conc 31.9 g/dL (32-36); Mean Corpuscular Hgb 30.4 pg (27.0-32.0); Mean Corpuscular Volume 95.3 fL (81-99); Monocyte# 0.45 X10^3/uL; Monocyte% 11.9 % (0-10); NRBC Flagged by Analyzer 0 % (0-5); Neutrophil # 1.85 X10^3/uL (2.7-7.7); Neutrophil % 48.9 % (47-70); Platelet Count 207 K/mm3 (150-450); RBC Distribution Width SD 49.1 fl (35.1-43.9); Red Blood Count 4.04 M/mm3 (4.2-5.4); White Blood Count 3.8 K/mm3 (4.4-11.0)
[2021-06-11 10:33] LABS: AST(SGOT) 18 U/L (15-37); Alanine Aminotransfer ALT/SGPT 24 U/L (13-56); Albumin, Serum 3.7 g/dL (3.2-5.0); Alkaline Phosphatase 42 U/L (45-117); Anion Gap 4 (5-15); BUN 7 mg/dL (7-18); BUN/Creat Ratio 10.8 RATIO (10-20); Calcium,Total 8.7 mg/dL (8.5-10.1); Chloride 107 mmol/L (98-107); Creatinine, Serum 0.65 mg/dL (0.55-1.02); EST Glomerular Filtration Rate 101 mL/min (>60); Est Glom Filt Rate - Afr Amer 122 mL/min (>60); Globulin 3.6 g/dL (2.2-4.2); Glucose 92 mg/dL (74-106); Potassium 3.6 mmol/L (3.5-5.1); Protein, Total 7.3 g/dL (6.4-8.2); Sodium Level 140 mmol/L (136-145); Thyroid Stim Hormone (TSH) 4.54 uIU/mL (0.358-3.74)
== END 2021-06-11 23:59 | disposition home or self-care (01) ==
PROVIDERS: PCP Internal Medicine; Referring Provider Internal Medicine; Visit Provider Internal Medicine
DX: E03.9 Hypothyroidism, unspecified (principal)
CPT/HCPCS: 36415; 80053; 84443; 85025

== ENCOUNTER 2021-07-12 08:12 | Outpatient (CLI) | payer OTHER, SELFPAY ==
[2021-07-12 08:35] LABS: Absolute Lymphocyte Count 1.62 X10^3/uL (0.83-4.51); Absolute Neutrophil Count 1.9 X10^3/uL (2.0-7.7); Basophil# 0.03 X10^3/uL; Basophil% 0.7 % (0-1); Eosinophil# 0.16 X10^3/uL; Eosinophils% 3.9 % (0-5); Hematocrit 35.2 % (37-47); Hemoglobin 11.5 g/dL (12.0-15.0); Lymphocyte # 1.62 X10^3/ul (0.83-4.51); Lymphocyte % 39.3 % (19-41); Mean Corp Hgb Conc 32.7 g/dL (32-36); Mean Corpuscular Hgb 30.7 pg (27.0-32.0); Mean Corpuscular Volume 94.1 fL (81-99); Mean Platelet Vol. 11.4 fl (6.2-12.0); Monocyte# 0.41 X10^3/uL; NRBC Flagged by Analyzer 0 % (0-5); Neutrophil # 1.89 X10^3/uL (2.7-7.7); Neutrophil % 45.9 % (47-70); Platelet Count 189 K/mm3 (150-450); RBC Distribution Width CV 13.4 % (11.6-14.6); RBC Distribution Width SD 46.6 fl (35.1-43.9); Red Blood Count 3.74 M/mm3 (4.2-5.4); White Blood Count 4.1 K/mm3 (4.4-11.0)
[2021-07-12 09:11] LABS: ALB/GLOB Ratio 1.1 RATIO (0.9-2.4); AST(SGOT) 15 U/L (15-37); Alanine Aminotransfer ALT/SGPT 20 U/L (13-56); Albumin, Serum 3.6 g/dL (3.2-5.0); Alkaline Phosphatase 41 U/L (45-117); Anion Gap 3 (5-15); BUN 9 mg/dL (7-18); BUN/Creat Ratio 13.7 RATIO (10-20); CRP < 2.90 mg/L (0.0-3.0); Calcium,Total 8.6 mg/dL (8.5-10.1); Chloride 105 mmol/L (98-107); Creatinine, Serum 0.66 mg/dL (0.55-1.02); EST Glomerular Filtration Rate 99 mL/min (>60); Est Glom Filt Rate - Afr Amer 120 mL/min (>60); Globulin 3.2 g/dL (2.2-4.2); Glucose 93 mg/dL (74-106); Protein, Total 6.8 g/dL (6.4-8.2); Sodium Level 137 mmol/L (136-145); Thyroid Stim Hormone (TSH) 1.43 uIU/mL (0.358-3.74)
== END 2021-07-12 23:59 | disposition home or self-care (01) ==
LOC: LAB 08:13
PROVIDERS: PCP Internal Medicine; Referring Provider Internal Medicine Rheumatology; Visit Provider Internal Medicine Rheumatology
DX: E03.9 Hypothyroidism, unspecified (principal); M32.9 Systemic lupus erythematosus, unspecified
CPT/HCPCS: 36415; 80053; 84443; 85025; 86140

== ENCOUNTER 2021-07-19 08:15 | Outpatient (CLI) | payer OTHER, SELFPAY ==
[2021-07-19 09:12] LABS: Prothrombin Time (Protime)PT. 12.4 SECONDS (11.7-14.9)
[2021-07-19 09:13] LABS: Partial Thromboplast Time 26.1 Seconds (24.1-36.2)
[2021-07-19 09:31] LABS: Vitamin B12 807 pg/mL (211-911)
[2021-07-19 09:45] LABS: Syphilis Antibodies Non-reactive
[2021-07-21 11:23] LABS: Anti-Cardiolipin Ab, IgA, Qn < 9 APL U/mL (0-11); Anti-Cardiolipin Ab, IgG, Qn < 9 GPL U/mL (0-14); Anti-Cardiolipin Ab, IgM, Qn < 9 MPL U/mL (0-12); Beta-2-Glycoprotein I IgA <9 (0-25); Beta-2-Glycoprotein I IgG <9 (0-20); Beta-2-Glycoprotein I IgM <9 (0-32)
== END 2021-07-19 23:59 | disposition home or self-care (01) ==
PROVIDERS: PCP Internal Medicine; Referring Provider Internal Medicine Rheumatology; Visit Provider Internal Medicine Rheumatology
DX: D68.61 Antiphospholipid syndrome (principal); M32.15 Tubulo-interstitial nephropathy in systemic lupus erythematosus
CPT/HCPCS: 36415; 82607; 82746; 85610; 85730; 86146; 86147; 86780

== ENCOUNTER → 2021-09-05 | Outpatient (CLI) | payer OTHER, SELFPAY ==
[2021-09-05 09:04] LABS: Absolute Lymphocyte Count 2.62 X10^3/uL (0.83-4.51); Absolute Neutrophil Count 4.6 X10^3/uL (2.0-7.7); Basophil# 0.02 X10^3/uL; Basophil% 0.3 % (0-1); Eosinophil# 0.04 X10^3/uL; Eosinophils% 0.5 % (0-5); Hematocrit 38.8 % (37-47); Hemoglobin 12.8 g/dL (12.0-15.0); Lymphocyte # 2.62 X10^3/ul (0.83-4.51); Lymphocyte % 33.3 % (19-41); Mean Corpuscular Hgb 31.2 pg (27.0-32.0); Mean Corpuscular Volume 94.6 fL (81-99); Mean Platelet Vol. 11.8 fl (6.2-12.0); Monocyte# 0.54 X10^3/uL; Monocyte% 6.9 % (0-10); NRBC Flagged by Analyzer 0 % (0-5); Neutrophil # 4.63 X10^3/uL (2.7-7.7); Neutrophil % 58.7 % (47-70); Platelet Count 266 K/mm3 (150-450); White Blood Count 7.9 K/mm3 (4.4-11.0)
[2021-09-05 09:35] LABS: BUN 14 mg/dL (7-18); Creatinine, Serum 0.73 mg/dL (0.55-1.02); Glucose 91 mg/dL (74-106)
[2021-09-05 09:36] LABS: ALB/GLOB Ratio 1.1 RATIO (0.9-2.4); AST(SGOT) 12 U/L (15-37); Alanine Aminotransfer ALT/SGPT 24 U/L (13-56); Albumin, Serum 3.8 g/dL (3.2-5.0); Alkaline Phosphatase 43 U/L (45-117); Anion Gap 6 (5-15); BUN/Creat Ratio 19.3 RATIO (10-20); CRP < 2.90 mg/L (0.0-3.0); Calcium,Total 9.3 mg/dL (8.5-10.1); Chloride 104 mmol/L (98-107); EST Glomerular Filtration Rate 88 mL/min (>60); Est Glom Filt Rate - Afr Amer 107 mL/min (>60); Globulin 3.4 g/dL (2.2-4.2); Potassium 3.8 mmol/L (3.5-5.1); Protein, Total 7.2 g/dL (6.4-8.2); Sodium Level 138 mmol/L (136-145)
--- NOTE | 2021-09-05 12:38 | RAD_ITS ---
STUDY: X-RAY CHEST REASON FOR EXAM: Female, 56 years old. CHEST PAIN GONZALES TECHNIQUE: XR Chest 2 Views COMPARISON: None FINDINGS: There is no demonstrated pleural abnormality. Normal size heart. Normal mediastinum and allison. Normal visualized pulmonary arteries. Normal visualized aortic arch and descending thoracic aorta. Normal visualized thoracic spine. Normal visualized ribs, clavicles, and shoulders. There is no demonstrated abnormality of the visualized soft tissue structures of the upper abdomen. RAD/Chest PA and Lateral IMPRESSION: There are no acute findings. Electronically Signed: Yobani Gómez MD at 14:51 EDT ,
== END | disposition home or self-care (01) ==
PROVIDERS: PCP Internal Medicine; Referring Provider Internal Medicine Rheumatology; Visit Provider Internal Medicine Rheumatology
DX: R06.00 Dyspnea, unspecified (principal); M32.9 Systemic lupus erythematosus, unspecified
CPT/HCPCS: 36415; 71046; 80053; 85025; 86140

== ENCOUNTER → 2021-09-13 | Outpatient (CLI) | payer OTHER, SELFPAY ==
--- NOTE | 2021-09-13 14:53 | CT_ITS ---
STUDY: CT ABDOMEN AND PELVIS WITH CONTRAST REASON FOR EXAM: Female, 56 years old. Abd fullness, early satiety, GONZALES, night sweats -- Oral and IV RADIATION DOSAGE (If Supplied By Facility): CTDIvol = ( 11.64 ) mGy, DLP = ( 443.35 ) mGycm TECHNIQUE: Transaxial images were obtained from the dome of the diaphragm to the symphysis pubis without oral contrast. 100 CC ISOVUE 300 was administered. Sagittal and coronal images were reconstructed. Individualized dose optimization techniques were used for this CT. COMPARISON: None. FINDINGS: The visualized lung bases are unremarkable. The visualized portions of the heart are within normal limits. There is a 2.2 cm x 2.2 cm cyst in the anterior medial aspect of the right lobe of the liver. Normal gallbladder and extrahepatic biliary system. Normal spleen. Normal pancreas. Normal bilateral adrenal glands. Normal right kidney. Normal left kidney. Normal visualized stomach. Normal small intestine. Moderate amount of fecal material is seen in the colon. The appendix is visualized and appears normal. Normal abdominal aorta. Normal inferior vena cava. Normal retroperitoneum. Normal urinary bladder. Normal abdominal wall. Normal osseous structures. CT/Abdomen/Pelvis WITH Contrast IMPRESSION: 2.2 cm x 2.2 cm cyst in the anterior medial portion of the right lobe of the liver. Electronically Signed: Chapo Arias MD at 15:39 EDT ,
== END | disposition home or self-care (01) ==
LOC: CT 14:51
PROVIDERS: PCP Internal Medicine; Visit Provider Nurse Practitioner Adult Health
DX: D72.829 Elevated white blood cell count, unspecified (principal); R68.81 Early satiety; R19.8 Other specified symptoms and signs involving the digestive system and abdomen
CPT/HCPCS: 74177; Q9967

== ENCOUNTER → 2021-10-09 | Outpatient (CLI) | payer OTHER, SELFPAY ==
[2021-10-09 14:31] LABS: Vitamin B12 837 pg/mL (211-911)
[2021-10-12 08:32] LABS: Copper, Serum or Plasma 93 ug/dL (80-158)
== END | disposition home or self-care (01) ==
LOC: LAB 11:35
PROVIDERS: PCP Internal Medicine
DX: R20.0 Anesthesia of skin (principal)
CPT/HCPCS: 36415; 82525; 82607

== ENCOUNTER → 2021-10-31 | Outpatient (CLI) | payer OTHER, SELFPAY ==
[2021-10-31 08:31] LABS: Absolute Lymphocyte Count 1.86 X10^3/uL (0.83-4.51); Absolute Neutrophil Count 2.4 X10^3/uL (2.0-7.7); Basophil# 0.04 X10^3/uL; Basophil% 0.8 % (0-1); Eosinophil# 0.09 X10^3/uL; Eosinophils% 1.9 % (0-5); Hematocrit 39.8 % (37-47); Hemoglobin 13.1 g/dL (12.0-15.0); Lymphocyte # 1.86 X10^3/ul (0.83-4.51); Lymphocyte % 39.5 % (19-41); Mean Corp Hgb Conc 32.9 g/dL (32-36); Mean Corpuscular Hgb 30.8 pg (27.0-32.0); Mean Corpuscular Volume 93.4 fL (81-99); Mean Platelet Vol. 12.1 fl (6.2-12.0); Monocyte# 0.32 X10^3/uL; Monocyte% 6.8 % (0-10); NRBC Flagged by Analyzer 0 % (0-5); Neutrophil # 2.39 X10^3/uL (2.7-7.7); Neutrophil % 50.8 % (47-70); Platelet Count 235 K/mm3 (150-450); RBC Distribution Width CV 12.6 % (11.6-14.6); RBC Distribution Width SD 43.5 fl (35.1-43.9); Red Blood Count 4.26 M/mm3 (4.2-5.4); White Blood Count 4.7 K/mm3 (4.4-11.0)
[2021-10-31 09:00] LABS: ALB/GLOB Ratio 1.2 RATIO (0.9-2.4); AST(SGOT) 15 U/L (15-37); Alanine Aminotransfer ALT/SGPT 18 U/L (13-56); Albumin, Serum 4.1 g/dL (3.2-5.0); Alkaline Phosphatase 46 U/L (45-117); Anion Gap 5 (5-15); BUN 11 mg/dL (7-18); BUN/Creat Ratio 15.6 RATIO (10-20); CRP < 2.90 mg/L (0.0-3.0); Calcium,Total 9.1 mg/dL (8.5-10.1); Chloride 111 mmol/L (98-107); EST Glomerular Filtration Rate 92 mL/min (>60); Est Glom Filt Rate - Afr Amer 111 mL/min (>60); Globulin 3.4 g/dL (2.2-4.2); Glucose 97 mg/dL (74-106); Potassium 3.6 mmol/L (3.5-5.1); Protein, Total 7.5 g/dL (6.4-8.2); Sodium Level 141 mmol/L (136-145)
== END | disposition home or self-care (01) ==
LOC: LAB 08:01
PROVIDERS: PCP Internal Medicine; Referring Provider Internal Medicine Rheumatology; Visit Provider Internal Medicine Rheumatology
DX: M32.9 Systemic lupus erythematosus, unspecified (principal)
CPT/HCPCS: 36415; 80053; 85025; 86140

== ENCOUNTER → 2021-11-06 | Outpatient (CLI) | payer OTHER, SELFPAY ==
--- NOTE | 2021-11-06 07:48 | RAD_ITS ---
STUDY: X-RAY - ESOPHAGUS (BARIUM SWALLOW) WITH FLUOROSCOPY REASON FOR EXAM: Female, 56 years old. Dysphasia, GERD TECHNIQUE: 18 view(s) of the esophagus were obtained following swallowing of barium. FLUOROSCOPY TIME (if supplied): (48 seconds) minutes/seconds COMPARISON: None. FINDINGS: There is no demonstrated esophageal foreign body. There is no demonstrated stricture or mucosal abnormality. Normal gastroesophageal junction, without a demonstrated hiatal hernia. The patient ingested a 12 mm tablet of barium without any difficulty. Normal visualized aortic arch and descending thoracic aorta. Normal visualized pulmonary parenchyma. Normal visualized osseous structures of the thorax. RAD/Esophagus Dual Contrast IMPRESSION: Normal plain film x-ray examination (barium swallow) of the esophagus. Electronically Signed: Chapo Arias MD at 8:30 EDT ,
== END | disposition home or self-care (01) ==
LOC: RAD 07:47
PROVIDERS: PCP Internal Medicine; Referring Provider Surgery; Visit Provider Surgery
DX: R13.10 Dysphagia, unspecified (principal); K21.9 Gastro-esophageal reflux disease without esophagitis
CPT/HCPCS: 74221

== ENCOUNTER 2021-11-12 06:43 | Day surgery (SDC) | payer OTHER, SELFPAY ==
--- NOTE | 2021-11-12 | IMM_PTH ---
PATIENT: CHASITY ARIAS LOC: EN U#:[id number] AGE/SX: 56/F ROOM: RE11/12/[address]: Dr. Andra Bustos MD : 1965 BED: DIS: 11/12/2021 SPEC #: [id number] RECD: 11/13/21 07:56 STATUS: ENEIDA RETrav #: [id number] [place]: 11/12/21 00:[address]: Andra Bustos DEPT: IMMUNOHISTOCHEMISTRY RECD BY: Americo Stephenson ENTERED: 11/13/21 07:57 SP TYPE: IMMUNO OTHR DR: Dr. Azalia Wu MD Tissues: Gastric mucous membrane Procedures: H Pylori (initial) P53 (initial) KI-67 (add) PHYSICIAN & INSTITUTION [place] [address] SPECIMEN INFORMATION: Tissue Source: A. Antrum biopsy, B. GE junction Clinical Info: Dysphagia, GERD Specimen Number: [id number] A & B CPT code: 94598 x2, 25413 METHODOLOGY: Deparaffinized sections of prefer/formalin-fixed tissue or PAP/DQ stained slides are incubated with monoclonal/polyclonal antibodies/oligonucleotide probes. Localization is made via biotin free immunoperoxidase method. Appropriate controls are performed and reacted as expected. Results on target cell population are indicated in the following table: RESULTS: ANTIBODY / CLONE RESULT Block A H Pylori (polyclonal) negative Block B P53 (DO-7) negative Ki-67 (30-9) positive, low These tests were developed and their performance characteristics determined by [facility]. They may not have been cleared or approved by the U.S. Food and Drug Administration. The FDA has determined that such clearance or approval is not necessary. The above immunohistochemical/dualISH markers are ordered and reviewed by the Pathologist. INTERPRETATION: A. Antrum biopsy: Negative for Helicobacter pylori organisms. B. GE junction: No evidence of dysplasia. AM:shawanda 11/14/21
[2021-11-12 07:01] VITALS: BP 110/62; PULSE 69; RESP 16; TEMP 36.5; O2SAT 100; BMI 23.9
[2021-11-12] MEDS: Lactated Ringers 1,000 ML 15 ML IV (07:04)
--- NOTE | 2021-11-12 07:16 | HP.PCM_ITS ---
History and Physical Date of Admission: 11/12/21 Date of Service:? 10/30/21 MR#: [id number] Acct: [id number] Name:CHASITY MARTINES Rep #: [id number] : 1965 ? ? Provider: Dr. Andra Bustos MD Age/Sex:? 56/F ? ? Location: [facility] – [place] Status: Signed Intake Intake Visit Reasons:?Dysphagia Chief Complaint: FU Chronic conditions. Allergies hydroxychloroquine [From Plaquenil] Allergy (Mild, Verified 09/19/21 13:25) ? PFSH Medical History?(Updated 10/30/21 @ 12:[address] Andra Bustos MD) Anemia Anxiety and depression Asthma Eye disorder Annette's thyroiditis Headache Heart murmur Systemic lupus erythematosus Vertigo Surgical History?(Updated 10/30/21 @ 12:[address] Andra Bustos MD) History of bilateral carpal tunnel release History of colonoscopy history of cystoscopy/dilation History of dilatation and curettage History of endoscopy History of tonsillectomy and adenoidectomy History of tubal ligation Family History? Father Heart disease Hypertension Thyroid disorderBrother Hypertension Thyroid disorder High cholesterol White matter diseaseMother Cancer ?? ? CLLOther Bone cancer Colon cancer Social History? household members:? spouse Smoking Status:? Never smoker second hand exposure:? No alcohol intake:? current alcohol intake frequency: a few times a week Alcohol type: beer and wine substance use type:? does not use caffeine:? Yes (4/day) what type of physical activity do you participate in:? walking, bicycling, yoga and aerobics frequency:? daily HPI HPI HPI: CHASITY ARIAS, is a 56 F who presents to the office today for dysphagia/reflux/early satiety for EGD.? Patient does have past medical history for systemic lupus.? In about 1999, patient had an EGD at that time which showed esophagitis.? Patient was to have repeat endoscopy to but due to other factors was able to get that done.? 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 Patient was given Protonix 20 mg p.o. daily about a year ago for her fire production operator that she has been having symptoms for quite some time.? Patient states she is still having symptoms on the medication.? Patient states that some pills can get stuck with swallowing and some solid food but not all.? Patient does feel burning up her esophagus as well as occasional pressure. ROS General General: Yes fatigue HEENT HEENT: Yes difficulty swallowing Skin Skin: No rash Musc Musculoskeletal: No gout Cardio Cardiovascular: No chest pain Gastro Gastrointestinal: Yes acid reflux and No ulcers Additional Details: Nausea no vomiting Exam Const General: cooperative, healthy appearing and no acute distress HENMT Head: normal to inspection Resp Effort & Inspection: normal respiratory effort Cardio Rate: regular rate GI Inspection: non-distended Palpation: soft, no guarding and nontender Skin General: no rashes or lesions noted Neuro General: patient oriented x3 Extrem General: no clubbing, cyanosis or edema Psych Affect: normal affect Assessment and Plan Assessment and Plan (1) Dysphagia: ?Status:?Acute (2) GERD (gastroesophageal reflux disease): ?Status:?Acute (3) Systemic lupus erythematosus: ?Status:?Chronic Plan Due to patient's dysphagia we will plan to check barium swallow.? We will also place patient on Protonix 40 mg p.o. daily.? Once barium swallow completed while scheduled for an EGD. I have discussed the above with the patient. I have offered the patient esophagogastroduodenoscopy for evaluation. I have explained the risks/benefits of the procedure and described the procedure.? I have discussed the risks with the patient, including but not limited to:? infection, bleeding, perforation of the GI tract requiring emergency surgery, inability to complete the procedure, injury to any internal organs, complications of anesthesia, etc. - the patient understands and agrees to proceed. I have answered all the patient's questions to the patient's satisfaction and the patient has no further questions. Andra Bustos M.D. Pager: [phone] [facility] [address] [place] [address], [address] [place] [address] Office: [phone] Coding Level of Care Code Off vis,new,level 3 Diagnoses Dysphagia? R13.10 GERD (gastroesophageal reflux disease)? K21.9 Systemic lupus erythematosus? M32.9 10/30/21 1243 <Electronically signed by Andra Bustos MD> Date Andra Bustos MD
--- NOTE | 2021-11-12 08:00 | EGD_PTH ---
PATIENT: CHASITY ARIAS LOC: EN U#:[id number] AGE/SX: 56/F ROOM: RE11/12/[address]: Dr. Andra Bustos MD : 1965 BED: DIS: 11/12/2021 SPEC #: [id number] RECD: 11/12/21 11:31 STATUS: ENEIDA MILA #: [id number] [place]: 11/12/21 08:[address]: Andra Bustos DEPT: SURGICAL PATHOLOGY RECD BY: Amna Alaniz ENTERED: 11/12/21 12:17 SP TYPE: EGD BIOPSY [facility] DR: Dr. Azalia Wu MD Tissues: A - Gastric mucous membrane B - Stomach, NOS Procedures: Surgery Specimen Level IV HEADER OPERATION: EGD ([facility] [place]) PRE-OP DIAGNOSIS: Dysphagia, GERD TISSUE SUBMITTED: A. Antrum biopsy, B. GE Junction MICROSCOPIC DIAGNOSIS A. Gastric antrum, biopsy: Mild chronic gastritis. B. Gastro-esophageal junction, biopsy: Chronic inflammation. 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 No evidence of dysplasia. See Comment. AM:am 11/13/2021 COMMENT A. The results of immunohistochemistry for Helicobacter pylori will be reported separately ([id number]). B. Alcian blue/PAS stain with matched control is used in the evaluation of the specimen. Immunohistochemistry ([id number]) for P53 and Ki-67 will be performed and results will be reported separately. MICROSCOPIC DESCRIPTION Slides are reviewed. GROSS DESCRIPTION A. Received is one container labeled with the patient name and designated antrum. The specimen consists of one irregular fragment of light underwood soft tissue that measures 0.3 x 0.3 x 0.1 cm. The specimen is totally submitted in one cassette. B. Received is one container labeled with the patient name and designated GE junction. The specimen consists of one irregular fragment of light underwood soft tissue that measures 0.3 x 0.2 x 0.1 cm. The specimen is totally submitted in one cassette. /SJ:cc 11/12/21 TC:3 CPT:53888w1,42017
[2021-11-12 08:09] VITALS: BP 110/62; BP 90/65; PULSE 73; RESP 16; TEMP 36.7; O2SAT 96
--- NOTE | 2021-11-12 08:10 | OP.EGD_ITS ---
Patient Name: Glenys Nieto Procedure Date: 11/12/2021 7:53 AM Date of : 1965 Age: 56 Procedure: Upper GI endoscopy Indications: Dysphagia, Esophageal reflux Providers: Andra Bustos MD Referring MD: Azalia Wu MD Medicines: Monitored Anesthesia Care Patient Profile: This is a 56 year old female. Complications: No immediate complications. Procedure: Pre-Anesthesia Assessment: - Prior to the procedure, a History and Physical was performed, and patient medications and allergies were reviewed. The patient's tolerance of previous anesthesia was also reviewed. The risks and benefits of the procedure and the sedation options and risks were discussed with the patient. All questions were answered, and informed consent was obtained. Prior Anticoagulants: The patient has taken no previous anticoagulant or antiplatelet agents. ASA Grade Assessment: Per anesthesia. After reviewing the risks and benefits, the patient was deemed in satisfactory condition to undergo the procedure. After obtaining informed consent, the endoscope was passed under direct vision. Throughout the procedure, the patient's blood pressure, pulse, and oxygen saturations were monitored continuously. The Endoscope was introduced through the mouth, and advanced to the second part of duodenum. The upper GI endoscopy was accomplished without difficulty. The patient tolerated the procedure well. Scope In: 8:00:18 AM Scope Out: 8:04:38 AM Total Procedure Duration Time 0 hours 4 minutes 20 seconds Findings: The Z-line was variable and was found 40 cm from the incisors. Biopsies were taken with a cold forceps for histology. The examined duodenum was normal. Diffuse mildly erythematous mucosa without bleeding was found in the gastric body and in the gastric antrum. Biopsies were taken with a cold forceps for histology. Biopsies were taken with a cold forceps for Helicobacter pylori cultures. The cardia and gastric fundus were normal on retroflexion. Impression: - Z-line variable, 40 cm from the incisors. Biopsied. - Normal examined duodenum. - Erythematous mucosa in the gastric body and antrum. Biopsied. Recommendation: - Await pathology results. - Discharge patient to home. - Resume previous diet. - Continue present medications. Procedure Code(s): --- Professional --- 38250, Esophagogastroduodenoscopy, flexible, transoral; with biopsy, single or multiple Diagnosis Code(s): --- Professional --- K22.8, Other specified diseases of esophagus K31.89, Other diseases of stomach and duodenum R13.10, Dysphagia, unspecified K21.9, Gastro-esophageal reflux disease without esophagitis CPT copyright 2017 [employer]. All rights reserved. The codes documented in this report are preliminary and upon online editor review may be revised to meet current compliance requirements. MD Andra Fragoso MD 11/12/2021 8:10:45 AM This report has been signed electronically. Number of Addenda: 0 Note Initiated On: 11/12/2021 7:53 AM
--- NOTE | 2021-11-12 08:11 | OP.CCLET_ITS ---
11/12/2021 Azalia Wu MD [address] [place] [address] Re : Upper GI endoscopy procedure for [facility] Dear Dr. Wu This procedure was performed on Friday, November 12, 2021. My impressions and recommendations are as follows: Impressions : - Z-line variable, 40 cm from the incisors. Biopsied. - Normal examined duodenum. - Erythematous mucosa in the gastric body and antrum. Biopsied. Recommendations : - Await pathology results. - Discharge patient to home. - Resume previous diet. - Continue present medications. My findings are described in the full procedure note, which is enclosed. If I can be of further assistance, please feel free to contact me at Doctor phone number(s): , Work: . Sincerely, MD Andra Fragoso MD 11/12/2021 8:10:45 AM This report has been signed electronically.
[2021-11-12 08:15] VITALS: BP 110/62; BP 91/64; PULSE 68; RESP 16; O2SAT 97
[2021-11-12 08:20] VITALS: BP 110/62; BP 91/67; PULSE 77; RESP 16; O2SAT 99
[2021-11-12 08:23] VITALS: BP 105/68; BP 110/62; PULSE 65; RESP 16; TEMP 36.7; O2SAT 100
[2021-11-12 08:36] VITALS: BP 110/62
== END 2021-11-12 08:52 | disposition home or self-care (01) ==
LOC: EN 06:43 → AC 06:44
PROVIDERS: PCP Internal Medicine; Referring Provider Internal Medicine; Visit Provider Surgery
PROC: 0DJ08ZZ Inspection of Upper Intestinal Tract, Via Natural or Artificial Opening Endoscopic (ICD-10-PCS; CPT 43235; principal; 2021-11-12 07:55)
DX: K22.70 Barrett's esophagus without dysplasia (principal); M32.9 Systemic lupus erythematosus, unspecified; K21.00 Gastro-esophageal reflux disease with esophagitis, without bleeding; K31.89 Other diseases of stomach and duodenum; D64.9 Anemia, unspecified; E07.9 Disorder of thyroid, unspecified; Z79.899 Other long term (current) drug therapy; Z80.0 Family history of malignant neoplasm of digestive organs
CPT/HCPCS: 43239; 88305; 88341; 88342; J7120; J2405

== ENCOUNTER → 2021-11-28 | Outpatient (CLI) | payer OTHER, SELFPAY ==
--- NOTE | 2021-11-28 15:40 | MRI_ITS ---
EXAM: MR THORACIC SPINE WITHOUT INTRAVENOUS CONTRAST CLINICAL INDICATION: PAIN IN BILAT LOWER EXTREMITIES TECHNIQUE: Multiplanar and multisequence MR images of the thoracic spine without intravenous contrast. This report was created using [employer] report generation technology. COMPARISON: None. FINDINGS: VERTEBRAE: Unremarkable. No fracture. Normal vertebral bodies and posterior elements. Normal alignment. There is preservation of the normal thoracic kyphosis. No scoliosis. DISCS/SPINAL CANAL/NEURAL FORAMINA: Unremarkable. Normal disc height and morphology. Normal spinal canal and neuroforamina. SPINAL CORD: Unremarkable. Normal in signal and morphology. Normal conus medullaris. SOFT TISSUES: Unremarkable. MRI/Spine Thoracic (Routine) IMPRESSION: Unremarkable MRI of the thoracic spine. Electronically Signed: Yobani Gómez MD at 17:53 EDT Reading Location ID and State: [facility] [place] , Service support ,
--- NOTE | 2021-11-28 16:34 | MRI_ITS ---
STUDY: MR Spine Lumbar W/O Contrast 11/28/2021 5:52 PM REASON FOR EXAM: Female, 56 years old. Back pain PAIN IN BILAT LOWER EXTREMITIES TECHNIQUE: MR Spine Lumbar W/O Contrast Standardized fat and water weighted pulse sequences were obtained. COMPARISON: None FINDINGS: T12-L1: Normal endplates. Normal disc height, hydration and morphology. Normal bilateral facet joints. Normal central canal and bilateral lateral recesses. Normal bilateral intervertebral neural foramina. Normal lumbar lordosis. There is no substantial scoliosis. Normal conus medullaris that terminates at the L1. L1-2: Loss of intervertebral disc height. There is endplate spondylosis of the vertebral body. Normal central canal and intervertebral neuroforamina. There is bilateral facet arthropathy. L2-3: Loss of intervertebral disc height. There is endplate spondylosis of the vertebral body. Normal central canal and intervertebral neuroforamina. There is bilateral facet arthropathy. Posterior disc bulge. L3-4: Loss of intervertebral disc height. There is endplate spondylosis of the vertebral body. Right paracentral disc herniation extending into the right intervertebral neuroforamina. Compression of exiting right L3 nerve root. There is bilateral facet arthropathy. L4-5: Loss of intervertebral disc height. There is endplate spondylosis of the vertebral body. Normal central canal and intervertebral neuroforamina. There is bilateral facet arthropathy. There is a Grade 1 anterolisthesis of L4 on L5. L5-S1: Loss of intervertebral disc height. There is endplate spondylosis of the vertebral body. There is bilateral facet arthropathy. Normal central canal and intervertebral neuroforamina. Normal visualized sacral ala. Normal visualized paraspinous soft tissue structures. MRI/Spine Lumbar (Routine) IMPRESSION: Multilevel degenerative changes, as described above. L3-4: Right paracentral disc herniation extending into the right intervertebral neuroforamina. Compression of exiting right L3 nerve root. Electronically Signed: Yobani Gómez MD at 17:55 EDT ,
== END | disposition home or self-care (01) ==
LOC: MRI 15:36
PROVIDERS: PCP Internal Medicine
DX: M54.9 Dorsalgia, unspecified (principal); M79.604 Pain in right leg
CPT/HCPCS: 72146; 72148

== ENCOUNTER → 2021-12-25 | Outpatient (CLI) | payer OTHER, SELFPAY ==
[2021-12-25 10:20] LABS: Bacteria 0 SEEN /hpf (None Seen); Mucous, Urine 0 SEEN /hpf (<or=2+); Red Blood Cells-Urine 0 SEEN /hpf (0-5); White Blood Cells 0 SEEN /hpf (0-5)
[2021-12-25 10:25] LABS: Color, Urine Yellow (Yellow); Glucose, Dipstick Normal (Normal); Ketone-Dipstick Negative (Negative); Leukocyte Esterase-Dipstick 25 /ul (Negative); Nitrite-Dipstick Negative (Negative); Occult Blood-Urine Negative /ul (Negative); Protein-Dipstick Negative (Negative); Specific Gravity, Urine 1.005 (1.002-1.030); Urine Bilirubin Dipstick Negative (Negative); Urine Clarity Clear (Clear); Urine Urobilinogen Normal (Normal)
[2021-12-25 11:24] LABS: Squamous Epithelial Cells - UA 0-5 SEEN /hpf (5-10)
== END | disposition home or self-care (01) ==
LOC: LABSPEC 10:04
PROVIDERS: PCP Internal Medicine; Referring Provider Physician Assistant Surgical; Visit Provider Physician Assistant Surgical
DX: R30.9 Painful micturition, unspecified (principal)
CPT/HCPCS: 81001; 87086; 87088

== ENCOUNTER → 2021-12-26 | Outpatient (CLI) | payer OTHER, SELFPAY ==
[2021-12-26 09:25] LABS: Absolute Lymphocyte Count 1.74 X10^3/uL (0.83-4.51); Absolute Neutrophil Count 1.8 X10^3/uL (2.0-7.7); Basophil# 0.06 X10^3/uL; Basophil% 1.5 % (0-1); Eosinophil# 0.13 X10^3/uL; Eosinophils% 3.2 % (0-5); Hematocrit 39.1 % (37-47); Hemoglobin 13.1 g/dL (12.0-15.0); Lymphocyte # 1.74 X10^3/ul (0.83-4.51); Lymphocyte % 43.2 % (19-41); Mean Corp Hgb Conc 33.5 g/dL (32-36); Mean Corpuscular Hgb 30.7 pg (27.0-32.0); Mean Corpuscular Volume 91.6 fL (81-99); Mean Platelet Vol. 12.5 fl (6.2-12.0); Monocyte% 7.4 % (0-10); NRBC Flagged by Analyzer 0 % (0-5); Neutrophil # 1.79 X10^3/uL (2.7-7.7); Neutrophil % 44.5 % (47-70); Platelet Count 250 K/mm3 (150-450); RBC Distribution Width SD 43.3 fl (35.1-43.9); Red Blood Count 4.27 M/mm3 (4.2-5.4)
[2021-12-26 09:54] LABS: ALB/GLOB Ratio 1.2 RATIO (0.9-2.4); AST(SGOT) 11 U/L (15-37); Alanine Aminotransfer ALT/SGPT 17 U/L (13-56); Albumin, Serum 4.2 g/dL (3.2-5.0); Alkaline Phosphatase 52 U/L (45-117); Anion Gap 8 (5-15); BUN 10 mg/dL (7-18); BUN/Creat Ratio 13.3 RATIO (10-20); CRP < 2.90 mg/L (0.0-3.0); Calcium,Total 9.3 mg/dL (8.5-10.1); Chloride 107 mmol/L (98-107); Creatinine, Serum 0.75 mg/dL (0.55-1.02); EST Glomerular Filtration Rate 85 mL/min (>60); Est Glom Filt Rate - Afr Amer 103 mL/min (>60); Globulin 3.5 g/dL (2.2-4.2); Glucose 93 mg/dL (74-106); Potassium 3.5 mmol/L (3.5-5.1); Protein, Total 7.7 g/dL (6.4-8.2); Sodium Level 139 mmol/L (136-145)
== END | disposition home or self-care (01) ==
LOC: LAB 08:20
PROVIDERS: PCP Internal Medicine; Visit Provider Internal Medicine Rheumatology
DX: M32.9 Systemic lupus erythematosus, unspecified (principal)
CPT/HCPCS: 36415; 80053; 85025; 86140

== ENCOUNTER → 2022-01-09 | Outpatient (CLI) | payer OTHER, SELFPAY ==
--- NOTE | 2022-01-09 13:02 | CDU_ITS ---
Reason For Study: VISUAL DISTURBANCE Rt. Velocities/BP Lt. Velocities/BP Prox CCA 105.8/25.6 cm/sec. Prox CCA 106.2/24.8 cm/sec. Mid CCA 98.1/26.7 cm/sec. Mid CCA 111.7/38.0 cm/sec. Dist CCA 91.6/28.9 cm/sec. Dist CCA 98.5/33.6 cm/sec. Prox ICA 97.7/19.7 cm/sec. Prox ICA 94.1/34.7 cm/sec. Mid ICA 106.3/41.3 cm/sec. Mid ICA 95.2/29.2 cm/sec. Dist ICA 99.7/43.1 cm/sec. Dist ICA 113.7/24.1 cm/sec. Rt. ICA/CCA = 106.3/98.1=1.1. Lt. ICA/CCA = 113.7/111.7=1.0. Prox ECA 75.7/8.7 cm/sec. Prox ECA 76.5/10.6 cm/sec. Rt. Vert. 66.0/28.4 cm/sec. Lt. Vert. 57.2/21.4 cm/sec. Right Extracranial There is no significant atherosclerotic plaque noted in the right common carotid artery. There is homogeneous, smooth atherosclerotic plaque noted in the right internal carotid artery. There is intimal thickening but no significant atherosclerotic plaque noted in the right external carotid artery. Antegrade flow is noted in the right vertebral artery. Left Extracranial There is no significant atherosclerotic plaque noted in the left common carotid artery. There is homogeneous, smooth atherosclerotic plaque noted in the left internal carotid artery. The left internal carotid artery is very tortuous. There is intimal thickening but no significant atherosclerotic plaque noted in the left external carotid artery. Antegrade flow is noted in the left vertebral artery. VL/Carotid Duplex Ultrasound Interpretation Summary Mild (<50%) stenosis right extracranial internal carotid. Mild (<50%) stenosis left extracranial internal carotid. Patent and antegrade vertebrals bilaterally. Ordering Physician: ORAL MAHONEY Referring Physician: Azalia Wu Performed By: Bisi Rice RDCS, RVT
== END | disposition home or self-care (01) ==
LOC: CVS 13:00
PROVIDERS: PCP Internal Medicine
DX: I65.23 Occlusion and stenosis of bilateral carotid arteries (principal); H53.9 Unspecified visual disturbance
CPT/HCPCS: 93880

== ENCOUNTER → 2022-01-24 | Outpatient (CLI) | payer OTHER, SELFPAY ==
[2022-01-24 09:21] LABS: Anion Gap 5 (5-15); BUN 5 mg/dL (7-18); BUN/Creat Ratio 8.3 RATIO (10-20); Calcium,Total 9.2 mg/dL (8.5-10.1); Chloride 103 mmol/L (98-107); EST Glomerular Filtration Rate 109 mL/min (>60); Est Glom Filt Rate - Afr Amer 132 mL/min (>60); Glucose 91 mg/dL (74-106); Potassium 3.5 mmol/L (3.5-5.1); Sodium Level 136 mmol/L (136-145)
== END | disposition home or self-care (01) ==
LOC: LAB 08:38
PROVIDERS: PCP Internal Medicine; Referring Provider Internal Medicine; Visit Provider Internal Medicine
DX: E87.6 Hypokalemia (principal)
CPT/HCPCS: 36415; 80048

== ENCOUNTER → 2022-01-30 | Outpatient (CLI) | payer OTHER, SELFPAY ==
--- NOTE | 2022-01-30 14:43 | NEURO ---
NCS and/or EMG Patient Report Ordering Doctor: Pawan Khan DATE OF SERVICE: 01/30/22 Glenys presents for electrodiagnostic testing of the right upper and right lower limb. She reports numbness and tingling in the right hand and right foot. She has a history of lupus. She has a history of previous carpal tunnel release in 2019. Electrodiagnostic findings: Right median motor nerve demonstrates normal distal latency, amplitude and conduction velocity. Right ulnar motor response is within normal limits right peroneal motor nerve demonstrates normal distal latency, amplitude and conduction velocity. Normal right tibial motor response. F waves are within normal limits. H reflex is normal bilaterally. Sensory responses are normal in the right upper and right lower limb. On needle EMG, all muscles tested in the right upper and right lower limb showed no evidence of denervation with normal motor unit action potentials Electrodiagnostic impression: This is a normal electrodiagnostic study in the right upper and right lower limb. There is no electrodiagnostic evidence for peripheral neuropathy, cervical or lumbar radiculopathy. There is no electrodiagnostic evidence for recurrent right carpal tunnel syndrome
== END | disposition home or self-care (01) ==
LOC: PSN 12:25
PROVIDERS: PCP Internal Medicine
DX: M79.604 Pain in right leg (principal); R20.0 Anesthesia of skin
CPT/HCPCS: 95886; 95913

== ENCOUNTER → 2022-02-20 | Outpatient (CLI) | payer OTHER, SELFPAY ==
[2022-02-20 08:47] LABS: Absolute Lymphocyte Count 1.54 X10^3/uL (0.83-4.51); Absolute Neutrophil Count 1.5 X10^3/uL (2.0-7.7); Basophil# 0.05 X10^3/uL; Basophil% 1.4 % (0-1); Eosinophil# 0.09 X10^3/uL; Eosinophils% 2.6 % (0-5); Hematocrit 38.2 % (37-47); Hemoglobin 12.8 g/dL (12.0-15.0); Lymphocyte # 1.54 X10^3/ul (0.83-4.51); Lymphocyte % 43.9 % (19-41); Mean Corp Hgb Conc 33.5 g/dL (32-36); Mean Corpuscular Hgb 31.1 pg (27.0-32.0); Mean Corpuscular Volume 92.9 fL (81-99); Mean Platelet Vol. 11.6 fl (6.2-12.0); Monocyte# 0.31 X10^3/uL; Monocyte% 8.8 % (0-10); NRBC Flagged by Analyzer 0 % (0-5); Neutrophil # 1.52 X10^3/uL (2.7-7.7); Neutrophil % 43.3 % (47-70); Platelet Count 239 K/mm3 (150-450); RBC Distribution Width CV 13.1 % (11.6-14.6); RBC Distribution Width SD 44.5 fl (35.1-43.9); Red Blood Count 4.11 M/mm3 (4.2-5.4); White Blood Count 3.5 K/mm3 (4.4-11.0)
[2022-02-20 09:25] LABS: ALB/GLOB Ratio 1.1 RATIO (0.9-2.4); AST(SGOT) 14 U/L (15-37); Alanine Aminotransfer ALT/SGPT 21 U/L (13-56); Alkaline Phosphatase 47 U/L (45-117); Anion Gap 7 (5-15); BUN 8 mg/dL (7-18); CRP < 2.90 mg/L (0.0-3.0); Calcium,Total 9.2 mg/dL (8.5-10.1); Chloride 107 mmol/L (98-107); Creatinine, Serum 0.73 mg/dL (0.55-1.02); EST Glomerular Filtration Rate 88 mL/min (>60); Est Glom Filt Rate - Afr Amer 107 mL/min (>60); Globulin 3.5 g/dL (2.2-4.2); Glucose 97 mg/dL (74-106); Potassium 3.5 mmol/L (3.5-5.1); Protein, Total 7.5 g/dL (6.4-8.2); Sodium Level 138 mmol/L (136-145)
== END | disposition home or self-care (01) ==
PROVIDERS: PCP Internal Medicine; Referring Provider Internal Medicine Rheumatology; Visit Provider Internal Medicine Rheumatology
DX: M32.9 Systemic lupus erythematosus, unspecified (principal)
CPT/HCPCS: 36415; 80053; 85025; 86140

== ENCOUNTER → 2022-03-27 | Outpatient (CLI) | payer OTHER, SELFPAY ==
[2022-03-27 15:38] LABS: Thyroid Stim Hormone (TSH) 0.33 uIU/mL (0.358-3.74)
== END | disposition home or self-care (01) ==
LOC: BIMLAB 14:22
PROVIDERS: PCP Internal Medicine; Referring Provider Internal Medicine; Visit Provider Internal Medicine
DX: E03.9 Hypothyroidism, unspecified (principal)
CPT/HCPCS: 36415; 84443

== ENCOUNTER → 2022-05-07 | Outpatient (CLI) | payer OTHER, SELFPAY ==
[2022-05-07 09:54] LABS: Absolute Lymphocyte Count 1.26 X10^3/uL (0.83-4.51); Absolute Neutrophil Count 2.7 X10^3/uL (2.0-7.7); Basophil# 0.05 X10^3/uL; Basophil% 1.2 % (0-1); Eosinophil# 0.05 X10^3/uL; Eosinophils% 1.2 % (0-5); Hematocrit 37.1 % (37-47); Hemoglobin 12.2 g/dL (12.0-15.0); Lymphocyte # 1.26 X10^3/ul (0.83-4.51); Mean Corp Hgb Conc 32.9 g/dL (32-36); Mean Corpuscular Volume 94.2 fL (81-99); Mean Platelet Vol. 11.9 fl (6.2-12.0); Monocyte# 0.31 X10^3/uL; Monocyte% 7.1 % (0-10); NRBC Flagged by Analyzer 0 % (0-5); Neutrophil # 2.66 X10^3/uL (2.7-7.7); Neutrophil % 61.3 % (47-70); Platelet Count 236 K/mm3 (150-450); RBC Distribution Width CV 13.4 % (11.6-14.6); RBC Distribution Width SD 46.2 fl (35.1-43.9); Red Blood Count 3.94 M/mm3 (4.2-5.4); White Blood Count 4.3 K/mm3 (4.4-11.0)
[2022-05-07 13:41] LABS: ALB/GLOB Ratio 1.2 RATIO (0.9-2.4); AST(SGOT) 13 U/L (15-37); Alanine Aminotransfer ALT/SGPT 17 U/L (13-56); Albumin, Serum 3.9 g/dL (3.2-5.0); Alkaline Phosphatase 41 U/L (45-117); Anion Gap 8 (5-15); BUN 10 mg/dL (7-18); BUN/Creat Ratio 15.1 RATIO (10-20); CRP < 2.90 mg/L (0.0-3.0); Chloride 106 mmol/L (98-107); Creatinine, Serum 0.66 mg/dL (0.55-1.02); EST Glomerular Filtration Rate 98 mL/min (>60); Est Glom Filt Rate - Afr Amer 118 mL/min (>60); Globulin 3.3 g/dL (2.2-4.2); Glucose 87 mg/dL (74-106); Potassium 3.6 mmol/L (3.5-5.1); Protein, Total 7.2 g/dL (6.4-8.2); Sodium Level 138 mmol/L (136-145); Thyroid Stim Hormone (TSH) 3.14 uIU/mL (0.358-3.74)
[2022-05-08 09:57] LABS: Complement C3 83 mg/dL (82-167)
[2022-05-08 18:53] LABS: Anti-dsDNA Ab <1 IU/mL (0-9)
== END | disposition home or self-care (01) ==
LOC: LAB 08:55
PROVIDERS: PCP Internal Medicine; Visit Provider Internal Medicine Rheumatology
DX: M32.9 Systemic lupus erythematosus, unspecified (principal)
CPT/HCPCS: 36415; 80053; 84443; 85025; 86140; 86160; 86225

== ENCOUNTER 2022-05-31 11:58 | Outpatient (CLI) | payer OTHER, SELFPAY ==
[2022-05-31 12:59] LABS: Hemoglobin 11.9 g/dL (12.0-15.0); Mean Corp Hgb Conc 31.3 g/dL (32-36); Mean Corpuscular Hgb 30.8 pg (27.0-32.0); Mean Corpuscular Volume 98.4 fL (81-99); Platelet Count 245 K/mm3 (150-450); RBC Distribution Width CV 13.5 % (11.6-14.6); RBC Distribution Width SD 48.9 fl (35.1-43.9); Red Blood Count 3.86 M/mm3 (4.2-5.4); White Blood Count 3.8 K/mm3 (4.4-11.0)
[2022-05-31 13:30] LABS: Vitamin B12 799 pg/mL (211-911); Vitamin D,25 Hydroxy 99.8 ng/mL
[2022-05-31 13:44] LABS: Ferritin 59 ng/mL (8-252); Iron 93 ug/dL (50-170); Iron Binding Capacity,Total 310 ug/dL (250-450)
== END 2022-05-31 23:59 | disposition home or self-care (01) ==
LOC: LAB 12:00
PROVIDERS: PCP Internal Medicine; Visit Provider Dermatology
DX: R53.83 Other fatigue (principal)
CPT/HCPCS: 36415; 82157; 82306; 82607; 82627; 82652; 82728; 82746; 83540; 83550; 84270; 84402; 84403; 84630; 85027; 82626

== ENCOUNTER → 2022-06-28 | Outpatient (CLI) | payer OTHER, SELFPAY ==
[2022-06-28 08:29] LABS: Absolute Lymphocyte Count 1.68 X10^3/uL (0.83-4.51); Absolute Neutrophil Count 1.8 X10^3/uL (2.0-7.7); Basophil# 0.04 X10^3/uL; Eosinophil# 0.07 X10^3/uL; Eosinophils% 1.8 % (0-5); Hematocrit 36.5 % (37-47); Lymphocyte # 1.68 X10^3/ul (0.83-4.51); Lymphocyte % 42.7 % (19-41); Mean Corp Hgb Conc 32.9 g/dL (32-36); Mean Corpuscular Hgb 31.7 pg (27.0-32.0); Mean Corpuscular Volume 96.3 fL (81-99); Monocyte# 0.31 X10^3/uL; Monocyte% 7.9 % (0-10); NRBC Flagged by Analyzer 0 % (0-5); Neutrophil # 1.83 X10^3/uL (2.7-7.7); Neutrophil % 46.6 % (47-70); Platelet Count 219 K/mm3 (150-450); RBC Distribution Width SD 46.2 fl (35.1-43.9); Red Blood Count 3.79 M/mm3 (4.2-5.4); White Blood Count 3.9 K/mm3 (4.4-11.0)
[2022-06-28 08:32] LABS: Color, Urine Yellow (Yellow); Glucose, Dipstick Normal (Normal); Ketone-Dipstick Negative (Negative); Leukocyte Esterase-Dipstick 25 /ul (Negative); Nitrite-Dipstick Negative (Negative); Occult Blood-Urine Negative /ul (Negative); Protein-Dipstick Negative (Negative); Specific Gravity, Urine 1.015 (1.002-1.030); Urine Bilirubin Dipstick Negative (Negative); Urine Clarity Clear (Clear); Urine Urobilinogen Normal (Normal); Urine pH 6.5 (5.0 - 8.0)
[2022-06-28 08:40] LABS: Protein, Urine (Random) 8.4 mg/dL (<11.9)
[2022-06-28 08:55] LABS: ALB/GLOB Ratio 1.2 RATIO (0.9-2.4); AST(SGOT) 18 U/L (15-37); Alanine Aminotransfer ALT/SGPT 20 U/L (13-56); Alkaline Phosphatase 45 U/L (45-117); Anion Gap 2 (5-15); BUN 13 mg/dL (7-18); BUN/Creat Ratio 18.8 RATIO (10-20); CRP < 2.90 mg/L (0.0-3.0); Calcium,Total 8.9 mg/dL (8.5-10.1); Chloride 109 mmol/L (98-107); Creatinine, Serum 0.69 mg/dL (0.55-1.02); EST Glomerular Filtration Rate 93 mL/min (>60); Est Glom Filt Rate - Afr Amer 113 mL/min (>60); Globulin 3.4 g/dL (2.2-4.2); Glucose 86 mg/dL (74-106); Lipase 187 U/L (73-393); Potassium 3.7 mmol/L (3.5-5.1); Protein, Total 7.4 g/dL (6.4-8.2); Sodium Level 140 mmol/L (136-145)
[2022-07-01 13:07] LABS: RNP Ab 0.3 AI (0.0-0.9); Smith Ab <0.2 AI (0.0-0.9)
[2022-07-02 11:13] LABS: ANTINUCLEAR ANTIBODIES DIRECT Negative (Negative)
[2022-07-04 09:09] LABS: Complement C3 86 mg/dL (82-167)
[2022-07-04 14:22] LABS: Angiotensin Convert Enzyme 48 U/L (14-82); Anti-Cardiolipin Ab, IgA, Qn < 9 APL U/mL (0-11); Anti-Cardiolipin Ab, IgG, Qn < 9 GPL U/mL (0-14); Anti-Cardiolipin Ab, IgM, Qn < 9 MPL U/mL (0-12); Beta-2-Glycoprotein I IgA <9 (0-25); Beta-2-Glycoprotein I IgG <9 (0-20); Beta-2-Glycoprotein I IgM <9 (0-32)
== END | disposition home or self-care (01) ==
PROVIDERS: PCP Internal Medicine; Referring Provider Internal Medicine Rheumatology; Visit Provider Internal Medicine Rheumatology
DX: R20.0 Anesthesia of skin (principal); M32.9 Systemic lupus erythematosus, unspecified
CPT/HCPCS: 36415; 80053; 81002; 82164; 82595; 83690; 84156; 85025; 86038; 86140; 86146; 86147; 86160; 86235

== ENCOUNTER → 2022-07-12 | Outpatient (CLI) | payer OTHER, SELFPAY ==
[2022-07-12 12:59] LABS: Bacteria 0 SEEN /hpf (None Seen); Mucous, Urine 0 SEEN /hpf (<or=2+); Red Blood Cells-Urine 0 SEEN /hpf (0-5); White Blood Cells 0 SEEN /hpf (0-5)
[2022-07-12 13:07] LABS: Color, Urine Yellow (Yellow); Glucose, Dipstick Normal (Normal); Ketone-Dipstick Negative (Negative); Leukocyte Esterase-Dipstick Negative /ul (Negative); Nitrite-Dipstick Negative (Negative); Occult Blood-Urine Negative /ul (Negative); Protein-Dipstick Negative (Negative); Specific Gravity, Urine 1.005 (1.002-1.030); Urine Bilirubin Dipstick Negative (Negative); Urine Clarity Sl. Cloudy (Clear); Urine Urobilinogen Normal (Normal)
[2022-07-12 13:12] LABS: Squamous Epithelial Cells - UA 0-5 SEEN /hpf (5-10)
== END | disposition home or self-care (01) ==
LOC: LABSPEC 12:46
PROVIDERS: PCP Internal Medicine; Referring Provider Physician Assistant Surgical; Visit Provider Physician Assistant Surgical
DX: R39.9 Unspecified symptoms and signs involving the genitourinary system (principal)
CPT/HCPCS: 81001; 87086

== ENCOUNTER → 2022-07-17 | Outpatient (CLI) | payer OTHER, SELFPAY ==
--- NOTE | 2022-07-17 15:37 | MRI_ITS ---
STUDY: MRI BRAIN WITH AND WITHOUT CONTRAST REASON FOR EXAM: Female, 56 years old. Migraine headaches; new daily persistent headache TECHNIQUE: Standardized multiplanar fat and water weighted pulse sequences were obtained. 11ml iv clariscan was administered for the contrast portion of the examination. COMPARISON: CT of the brain June 06, 2021 FINDINGS: Normal size of the ventricles and extra-axial spaces for the patient''s age. Normal white matter tracts of the supratentorial brain. Normal bilateral basal ganglia. Normal thalami. There is no extra-axial fluid accumulation. Normal flow voids within the major intracranial circulation suggesting patency by spin echo criteria. Normal venous enhancement. There is no enhancing intra-axial or extra-axial abnormality. Normal sella turcica, pituitary gland, infundibular stalk, optic chiasm and hypothalamus. Normal tectal plate and pineal gland. Normal midbrain, rosa maria and medulla. Normal cerebellum. Normal basal cisterns. Normal bilateral temporal bones. Normal bilateral internal auditory canals. No demonstrated orbital abnormality, within the constraints of a routine brain study. Minor mucosal thickening of the left inferior sinus. Normal calvarium and skull base. Normal visualized soft tissue structures. Normal visualized upper cervical spine. MRI/Brain W/WO Contrast IMPRESSION: Normal unenhanced and enhanced MRI of the brain. Mild left sphenoid sinusitis likely chronic Electronically Signed: Jamie Gentile MD at 20:54 EDT ,
== END | disposition home or self-care (01) ==
PROVIDERS: PCP Internal Medicine; Referring Provider Psychiatry & Neurology Neurology; Visit Provider Psychiatry & Neurology Neurology
DX: G43.109 Migraine with aura, not intractable, without status migrainosus (principal); G44.52 New daily persistent headache (NDPH)
CPT/HCPCS: 70553; A9575

== ENCOUNTER → 2022-08-28 | Outpatient (CLI) | payer OTHER, SELFPAY ==
[2022-08-28 09:04] LABS: Absolute Neutrophil Count 1.6 X10^3/uL (2.0-7.7); Basophil# 0.06 X10^3/uL; Basophil% 1.6 % (0-1); Eosinophils% 2.7 % (0-5); Hematocrit 37.3 % (37-47); Hemoglobin 11.9 g/dL (12.0-15.0); Lymphocyte % 42.8 % (19-41); Mean Corp Hgb Conc 31.9 g/dL (32-36); Mean Corpuscular Hgb 31.3 pg (27.0-32.0); Mean Corpuscular Volume 98.2 fL (81-99); Mean Platelet Vol. 11.7 fl (6.2-12.0); Monocyte# 0.41 X10^3/uL; NRBC Flagged by Analyzer 0 % (0-5); Neutrophil # 1.56 X10^3/uL (2.7-7.7); Neutrophil % 41.6 % (47-70); Platelet Count 244 K/mm3 (150-450); RBC Distribution Width CV 12.7 % (11.6-14.6); RBC Distribution Width SD 45.8 fl (35.1-43.9); White Blood Count 3.7 K/mm3 (4.4-11.0)
[2022-08-28 09:43] LABS: ALB/GLOB Ratio 1.1 RATIO (0.9-2.4); AST(SGOT) 12 U/L (15-37); Alanine Aminotransfer ALT/SGPT 17 U/L (13-56); Albumin, Serum 3.8 g/dL (3.2-5.0); Alkaline Phosphatase 40 U/L (45-117); Anion Gap 5 (5-15); BUN 7 mg/dL (7-18); BUN/Creat Ratio 9.9 RATIO (10-20); CRP < 2.90 mg/L (0.0-3.0); Calcium,Total 9.2 mg/dL (8.5-10.1); Chloride 102 mmol/L (98-107); EST Glomerular Filtration Rate 91 mL/min (>60); Est Glom Filt Rate - Afr Amer 111 mL/min (>60); Globulin 3.6 g/dL (2.2-4.2); Glucose 88 mg/dL (74-106); Protein, Total 7.4 g/dL (6.4-8.2); Sodium Level 138 mmol/L (136-145)
[2022-09-04 10:09] LABS: HLA B27 Negative (.)
== END | disposition home or self-care (01) ==
PROVIDERS: PCP Internal Medicine; Referring Provider Internal Medicine Rheumatology; Visit Provider Internal Medicine Rheumatology
DX: M32.9 Systemic lupus erythematosus, unspecified (principal)
CPT/HCPCS: 36415; 80053; 81374; 85025; 86140

== ENCOUNTER → 2022-09-11 | Outpatient (CLI) | payer OTHER, SELFPAY ==
[2022-09-16 12:07] LABS: HPV APTIMA, High Risk Negative (Negative)
== END | disposition home or self-care (01) ==
PROVIDERS: PCP Internal Medicine; Visit Provider Obstetrics & Gynecology
DX: N95.0 Postmenopausal bleeding (principal); Z12.4 Encounter for screening for malignant neoplasm of cervix
CPT/HCPCS: 87624; 88175; G0145

== ENCOUNTER → 2022-09-19 | Outpatient (CLI) | payer OTHER, SELFPAY ==
--- NOTE | 2022-09-19 12:29 | US_ITS ---
INDICATION: postmenopausal bleeding EXAMINATION: Ultrasound US Pelvis Non OB Complete With Transvaginal Imaging TECHNIQUE: Transabdominal and transvaginal pelvic ultrasound was performed. Grayscale, spectral waveform, and color flow Doppler evaluation of the adnexa. COMPARISON: CT abdomen and pelvis 09/13/2021. FINDINGS: UTERUS: 7.7 cm length. Retroverted. Normal configuration. ENDOMETRIUM: Not thickened. 0.4 cm maximal thickness. Mildly heterogeneous with 2 small cystic structures. OVARIES: Right ovary: 1.5 x 0.9 x 1.5 cm. Unremarkable. Vascular flow demonstrated. No findings to suggest ovarian torsion. Left ovary: Not visualized. FREE FLUID: None. US/Pelvic w/ Transvaginal IMPRESSION: Small endometrial cysts. No significant endometrial thickening. Nonvisualized left ovary. Electronically Signed: Samreen Gross MD at 16:23 EDT ,
== END | disposition home or self-care (01) ==
LOC: OPUS 12:28
PROVIDERS: PCP Internal Medicine; Referring Provider Obstetrics & Gynecology; Visit Provider Obstetrics & Gynecology
DX: N95.0 Postmenopausal bleeding (principal)
CPT/HCPCS: 76830; 76856

== ENCOUNTER 2022-10-22 12:10 | Day surgery (SDC) | payer OTHER, SELFPAY ==
[2022-10-18 11:23] LABS: Hemoglobin 12.3 g/dL (12.0-15.0); Mean Corp Hgb Conc 33.2 g/dL (32-36); Mean Corpuscular Hgb 31.9 pg (27.0-32.0); Mean Corpuscular Volume 95.9 fL (81-99); Mean Platelet Vol. 11.8 fl (6.2-12.0); Platelet Count 235 K/mm3 (150-450); RBC Distribution Width CV 12.9 % (11.6-14.6); RBC Distribution Width SD 45.2 fl (35.1-43.9); Red Blood Count 3.86 M/mm3 (4.2-5.4); White Blood Count 3.8 K/mm3 (4.4-11.0)
[2022-10-22] VITALS (8 sets, daily range): BP systolic 104–119; BP diastolic 61–74; PULSE 61–71; RESP 16–17; TEMP 36.2–36.9; O2SAT 92–100; BMI 22.7
--- NOTE | 2022-10-22 | EMB_PTH ---
PATIENT: CHASITY ARIAS LOC: [facility] [place] U#:[id number] AGE/SX: 57/F ROOM: RE10/22/[address]: Dr. Irma Bennett DO : 1965 BED: DIS: 10/22/2022 SPEC #: [id number] RECD: 10/22/22 14:31 STATUS: ENEIDA ZARAGOZA #: [id number] [place]: 10/22/22 00:[address]: Irma Bennett DEPT: SURGICAL PATHOLOGY RECD BY: Fazal Damon ENTERED: 10/23/22 11:45 SP TYPE: ENDOM BX/C JOSEPH DR: Dr. Azalia Wu MD Tissues: Endometrium, NOS Procedures: Surgery Specimen Level IV HEADER OPERATION: Hysteroscopy, Dilation and curettage PRE-OP DIAGNOSIS: Postmenopausal bleeding TISSUE SUBMITTED: Endometrial curettings MICROSCOPIC DIAGNOSIS Endometrium, curettings: Rare strips of benign glandular mucosa. Fragments of benign squamous mucosa. See comment. AM:balwinder 10/24/2022 COMMENT The specimen primarily consists of squamous mucosal fragments. Clinical correlation suggested. MICROSCOPIC DESCRIPTION Slides are reviewed. GROSS DESCRIPTION Received in fixative is one container labeled with the patient's name and designated endometrial curettings. The specimen consists of multiple irregular fragments of underwood-brown soft tissue that in aggregate measure 2.0 x 0.2 x 0.1 cm. The specimen is totally submitted in one cassette. / SJ:balwinder 10/23/2022 TC:5 CPT: 70041
[2022-10-22] MEDS: Lactated Ringers 1,000 ML 15 ML IV (12:37)
--- NOTE | 2022-10-22 13:12 | HP.PCM_ITS ---
History and Physical Date of Admission: 10/22/22 Intake Vital Signs 09/11/2313:55 09/24/2310:47 10/17/2315:21 Height 5 ft 2 in 5 ft 2 in 5 ft 2 in Weight: 124 lb 8 oz 126 lb 2 oz BMI 22.7 23.1 BP 113/68 115/73 Intake Visit Reasons: D&C Consular Officer Required: No Is patient in pain?: No Allergies No Known Allergies Allergy (Verified 10/16/22 16:21) Medications cholecalciferol (vitamin D3) 25 mcg (1,000 unit) tablet 1,000 unit PO DAILY 08/10/18 [History Confirmed 10/16/22] celecoxib 100 mg capsule (Celebrex) 100 mg PO DAILY 06/06/21 [History Confirmed 10/16/22] pantoprazole 40 mg tablet,delayed release 40 mg PO BID #180 tabs 11/20/21 [Rx Confirmed 10/16/22] mycophenolate mofetil 500 mg tablet (CellCept) 250 mg PO BID lupus 03/27/22 [History Confirmed 10/16/22] divalproex 250 mg tablet,delayed release 250 mg PO DAILY #30 tabs 06/25/22 [Rx Confirmed 10/16/22] folic acid 1 mg tablet 1 mg PO DAILY #30 tabs 06/25/22 [Rx Confirmed 10/16/22] ondansetron HCl 4 mg tablet 4 mg PO TID PRN nausea and vomiting #90 tabs 06/25/22 [Rx Confirmed 10/16/22] rizatriptan 10 mg tablet 10 mg PO .COMPLEX migraine headache #9 tabs 06/25/22 [Rx Confirmed 10/16/22] levothyroxine 75 mcg tablet See Rx Instructions .Route .COMPLEX #90 tabs 08/19/22 [Rx Confirmed 10/16/22] hydroxychloroquine 200 mg tablet (Plaquenil) 200 mg PO BID 09/11/22 [History Confirmed 10/16/22] duloxetine 30 mg capsule,delayed release See Rx Instructions .Route .COMPLEX #180 caps 09/23/22 [Rx Confirmed 10/16/22] potassium chloride 20 mEq tablet,extended release(part/cryst) See Rx Instructions .Route .COMPLEX #90 tabs 09/23/22 [Rx Confirmed 10/16/22] Post menopausal: No Patient : No : No [facility] Medical History Anemia Anxiety and depression Arthritis Asthma Reyez's esophagus Eye disorder Gastric reflux Hair loss Annette's thyroiditis Headache Heart murmur History of echocardiogram History of irregular heartbeat Hypokalemia Hypothyroidism Migraine headache Non-smoker Seasonal affective disorder Systemic lupus erythematosus Thyroid disease Vertigo Wears glasses Surgical History History of bilateral carpal tunnel release History of colonoscopy history of cystoscopy/dilation History of dilatation and curettage History of endometrial ablation History of endoscopy History of esophagogastroduodenoscopy (EGD) History of tonsillectomy and adenoidectomy History of tubal ligation Family History Father Heart disease Hypertension Thyroid disorderBrother Hypertension Thyroid disorder High cholesterol White matter diseaseMother Cancer CLLGrandmother Bone cancerGrandfather Colon cancer Social History household members: spouse Smoking Status: Never smoker second hand exposure: No alcohol intake: current alcohol intake frequency: a few times a week Alcohol type: beer and wine details: holiday substance use type: does not use caffeine: No ( ) what type of physical activity do you participate in: walking, bicycling and aerobics frequency: daily nathaniel/christianity: Evangelical seatbelt use: always HPI D&C Details: CHASITY ARIAS is a 57 year old who presents for preop discussion. She has had some bleeding postmenopausal and ultrasound shows 2 cystic lesions and a lining measuring 4mm. She had an ablation procedure with Dr. Ugarte years back. She wants to proceed with a D&C vs an office biopsy due to a history of very bad pain with the office procedure. ROS Const ROS Unobtainable: All systems reviewed & are unremarkable except as noted in H Resp Resp: Reports system reviewed and no additional complaints, except as documented; Denies cough GI GI: Reports as per HPI Psych Psych: Reports system reviewed and no additional complaints, except as documented Exam Const General: cooperative, healthy appearing, comfortable and no acute distress Resp Effort & Inspection: normal respiratory effort Skin General: no rashes or lesions noted Psych Appearance: grossly normal Speech and Movement: speech and movement normal Coding Level of Care Code Off vis,est,level 4 Diagnoses Postmenopausal bleeding N95.0 Assessment and Plan Assessment and Plan (1) Postmenopausal bleeding: Status: Acute Plan: After discussing the patient's diagnosis and treatment plan options, patient wishes to proceed with surgical management. I have discussed with the patient the risks, benefits, and alternatives of the procedure which include but are not limited to risks of anesthesia, bleeding, infection, possible damage to bowel, bladder, or surrounding vasculature which could lead to additional surgery to evaluate any complications. Patient agrees to procedure and wishes to proceed. ACOG/uptodate references given for additional information regarding procedure. plan for hysteroscopy D&C
[2022-10-22] MEDS: Lidocaine 1% (20 ml mdv) 20 ML Vial (13:35)
--- NOTE | 2022-10-22 14:14 | PCM.OPRPT ---
Problems Associated Problem List Diagnoses (1) Postmenopausal bleeding: Report of Operation Date of Procedure: 10/22/22 Pre-Operative Diagnosis: postmenopausal bleeding Post-Operative Diagnosis: postmenopausal bleeding Surgery/Procedure Performed:: hysteroscopy dilation and curettage Description of Surgical Findings:: atrophic appearing endometrium. 2 small cystic areas at the utero/cervical junction Surgeon: Irma Bennett textile scrap salvager: None Type of Anesthesia: MAC and Topical Anesth Specimen's removed: endometrial curetting's Estimated Blood Loss (mL): 5cc Description of Procedure: Patient was prepped and draped in a normal sterile fashion under MAC anesthesia. A weighted speculum was placed in the vagina and the anterior lip of the cervix was grasped with a single-tooth tenaculum. A paracervical block was placed with 1% lidocaine. Cervix was progressively dilated to allow passage of a 5 mm hysteroscope. The lining was fully visualized and noted to be atrophic and at the utero/cervical junction were 2 very small cystic areas . Uterine sounded to 6 cm. Curettage was performed and the small cystic structures were grasped with a polyp forceps device and sent to pathology. All instruments were removed from the vagina and excellent hemostasis was noted. Patient was awoken and taken to recovery in stable condition. Complications none Admit VTE Documentation VTE Present on Admission: No VTE Mechan Device Prophylaxis: SCD's VTE Pharm Prophylaxis ordered?: Yes Multi Select Codes Urinary/Genital Urinary/Genital CPT Codes: 56772 Hysteroscopy,EMC, Polypectomy
--- NOTE | 2022-10-22 14:17 | DCINST_ITS ---
Discharge Instructions Diet Discharge Diet: No restrictions Activity Discharge Activity: Return to Normal Activity, May Shower and May Take a Tub Bath (after 1 week) May resume sexual activity in: 1-2 weeks Weight Bearing Status: Weight bearing as tolerated Lifting Restrictions: none Dressing / Incision Call your doctor if you observe: Fever of 101 or Higher, Using more than 1 pad per hour, Shortness of breath and Uncontrolled pain Follow Up Care Please Follow Up With: Irma Bennett DO When: Call [phone] to schedule appointment. Test Results: Test results from this visit will be discussed in further detail at your follow- up appointment, if applicable. Discharge Plan Admission Primary Reason for Your Visit: hysteroscopy dilation and curettage Attending Provider: Irma Bennett Primary Care Provider: Azalia Wu Discharge Orders/Prescriptions Prescriptions: Continued celecoxib [Celebrex] 100 mg capsule 100 mg PO DAILY mycophenolate mofetil [CellCept] 500 mg tablet 250 mg PO BID ondansetron HCl 4 mg tablet 4 mg PO TID PRN (Reason: nausea and vomiting) Qty: 90 4RF rizatriptan 10 mg tablet 10 mg PO .COMPLEX Qty: 9 5RF Rx Instructions: Take 1 tablet orally every two hours as needed for headache up to three tablets per day divalproex 250 mg tablet,delayed release (DR/EC) 250 mg PO DAILY Qty: 30 6RF folic acid 1 mg tablet 1 mg PO DAILY Qty: 30 6RF hydroxychloroquine [Plaquenil] 200 mg tablet 200 mg PO BID cholecalciferol (vitamin D3) 1,000 UNIT tablet 1,000 unit PO DAILY pantoprazole 40 mg tablet,delayed release (DR/EC) 40 mg PO BID Qty: 180 3RF levothyroxine 75 mcg tablet See Rx Instructions .ROUTE .COMPLEX Qty: 90 0RF Dose Instruction: TAKE 1 TABLET BY MOUTH ONCE DAILY Rx Instructions: TAKE 1 TABLET BY MOUTH ONCE DAILY duloxetine 30 mg capsule,delayed release(DR/EC) See Rx Instructions .ROUTE .COMPLEX Qty: 180 0RF Dose Instruction: TAKE 1 CAPSULE BY MOUTH 2 TIMES A DAY Rx Instructions: TAKE 1 CAPSULE BY MOUTH 2 TIMES A DAY potassium chloride 20 mEq tablet,ER particles/crystals See Rx Instructions .ROUTE .COMPLEX Qty: 90 0RF Dose Instruction: TAKE 1 TABLET BY MOUTH DAY Rx Instructions: TAKE 1 TABLET BY MOUTH DAY Referrals / Follow Up: Azalia Wu MD [Primary Care Provider] - Disposition Disposition (needs filled in before D/C Order can be placed): Home, Self Care
== END 2022-10-22 15:24 | disposition home or self-care (01) ==
LOC: SDC 12:10 → AC 12:11
PROVIDERS: PCP Internal Medicine; Referring Provider Obstetrics & Gynecology; Visit Provider Obstetrics & Gynecology
PROC: 0UDB8ZZ Extraction of Endometrium, Via Natural or Artificial Opening Endoscopic (ICD-10-PCS; CPT 58558; principal; 2022-10-22 13:30)
DX: N95.0 Postmenopausal bleeding (principal); F32.A Depression, unspecified; K21.9 Gastro-esophageal reflux disease without esophagitis; E03.9 Hypothyroidism, unspecified; Z79.899 Other long term (current) drug therapy
CPT/HCPCS: 58558; 00952; 36415; 85027; 86850; 86900; 86901; 88305; J7120; J2405

== ENCOUNTER → 2022-10-23 | Outpatient (CLI) | payer OTHER, SELFPAY ==
--- NOTE | 2022-10-23 12:40 | BI_ITS ---
MAMMOGRAPHY - BILATERAL SCREENING REASON FOR EXAM: Female, 57 years old. Routine annual screening examination. PERTINENT HISTORY: Aunts with breast cancer. TECHNIQUE: Digital bilateral breast belinda (3D mammographic acquisition) in the CC and MLO projections. 2-D mediolateral oblique (MLO) and craniocaudad (CC) views of both breasts were obtained. CAD: Full Field Digital Mammography with Computer Added Detection was performed. COMPARISON: Comparison is made with prior study of May 02, 2021 and February 28, 2018. FINDINGS: Breast Composition: There are scattered areas of fibroglandular density. There are no dominant masses or suspicious calcifications. Stable small benign appearing bilateral axillary lymph nodes. No other significant abnormalities are identified. There has been no significant change since the prior study. BI/SCRN MAMM (CAD)W/BELINDA BILAT IMPRESSION: Stable bilateral screening mammogram. Yearly follow-up mammogram recommended. (A) ASSESSMENT CATEGORY: BIRADS Category 2: Benign. A letter regarding these results will be sent to the patient by the facility within 30 days. Approximately 10% of breast cancers are not detected by mammography. A normal mammogram should not delay biopsy of a clinically suspicious abnormality. [id number] Electronically Signed: Chapo Arias MD at 13:19 EDT ,
== END | disposition home or self-care (01) ==
LOC: OPBI 12:39
PROVIDERS: PCP Internal Medicine; Referring Provider Obstetrics & Gynecology; Visit Provider Obstetrics & Gynecology
DX: Z12.31 Encounter for screening mammogram for malignant neoplasm of breast (principal)
CPT/HCPCS: 77063; 77067

== ENCOUNTER → 2022-11-15 | Outpatient (CLI) | payer OTHER, SELFPAY ==
[2022-11-15 12:31] LABS: Absolute Neutrophil Count 1.9 X10^3/uL (2.0-7.7); Basophil# 0.05 X10^3/uL; Basophil% 1.3 % (0-1); Eosinophil# 0.07 X10^3/uL; Eosinophils% 1.9 % (0-5); Hematocrit 36.7 % (37-47); Hemoglobin 12.2 g/dL (12.0-15.0); Lymphocyte % 34.8 % (19-41); Mean Corp Hgb Conc 33.2 g/dL (32-36); Mean Corpuscular Hgb 31.5 pg (27.0-32.0); Mean Corpuscular Volume 94.8 fL (81-99); Mean Platelet Vol. 11.6 fl (6.2-12.0); Monocyte% 10.7 % (0-10); NRBC Flagged by Analyzer 0 % (0-5); Neutrophil # 1.91 X10^3/uL (2.7-7.7); Platelet Count 220 K/mm3 (150-450); RBC Distribution Width CV 12.8 % (11.6-14.6); RBC Distribution Width SD 44.3 fl (35.1-43.9); Red Blood Count 3.87 M/mm3 (4.2-5.4); White Blood Count 3.7 K/mm3 (4.4-11.0)
[2022-11-15 13:15] LABS: ALB/GLOB Ratio 1.1 RATIO (0.9-2.4); AST(SGOT) 15 U/L (15-37); Alanine Aminotransfer ALT/SGPT 17 U/L (13-56); Albumin, Serum 3.9 g/dL (3.2-5.0); Alkaline Phosphatase 40 U/L (45-117); Anion Gap 7 (5-15); BUN 7 mg/dL (7-18); BUN/Creat Ratio 12.4 RATIO (10-20); CRP < 2.90 mg/L (0.0-3.0); Calcium,Total 8.7 mg/dL (8.5-10.1); Chloride 93 mmol/L (98-107); Creatinine, Serum 0.56 mg/dL (0.55-1.02); EST Glomerular Filtration Rate 118 mL/min (>60); Est Glom Filt Rate - Afr Amer 142 mL/min (>60); Globulin 3.4 g/dL (2.2-4.2); Glucose 82 mg/dL (74-106); Potassium 4.1 mmol/L (3.5-5.1); Protein, Total 7.3 g/dL (6.4-8.2); Sodium Level 128 mmol/L (136-145)
== END | disposition home or self-care (01) ==
LOC: LAB 11:50
PROVIDERS: PCP Internal Medicine; Referring Provider Internal Medicine Rheumatology; Visit Provider Internal Medicine Rheumatology
DX: M32.9 Systemic lupus erythematosus, unspecified (principal)
CPT/HCPCS: 36415; 80053; 85025; 86140

== ENCOUNTER → 2022-11-18 | Outpatient (CLI) | payer OTHER, SELFPAY ==
--- NOTE | 2022-11-18 13:07 | VDLE_ITS ---
Reason For Study: LLE PAIN RIGHT LEFT CFV is compressible, spontaneous, phasic, GSV is normal. competent and demonstrates normal CFV is compressible, spontaneous, phasic, augmentation. competent, and demonstrates normal Procedure augmentation. This is a venous duplex using B-mode, color FV is compressible, spontaneous, phasic, flow and spectral Doppler. competent and demonstrates normal Exam performed in department. augmentation. A preliminary report was called and/or faxed POP V is compressible, spontaneous, phasic, to Terry AUGUSTE @ [phone] @ 1:40 pm. competent and demonstrates normal augmentation. T/P Trunk is compressible. PTV is compressible. LT PerV is compressible. 1 NON-VASCULAR structure noted LT POP FOSSA AREA measuring 2.32 x 1.36 tranverse. 2 NON-VASCULAR structure noted proximal/medical calf measuring 4.28 x 0.67 sagittal & 0.78 x 1.31 transverse. VL/Venous Duplex US, Unilateral Interpretation Summary There is no evidence of left lower extremity deep vein thrombosis. Left great s aphenous vein appears patent and compressible segmentally. Left popliteal fossa nonvascular 2.32 x 1. 36 cm structure consistent with a Ibarra's cyst however clinical correlation with history would be appropriate Longitudinal 4.28 x 0.67 and separate 0.78 x 1.31 cm structures proximal medial calf without vascular flow of mixed heterogeneity possible fluid or blood. Again clinical co rrelation would be appropriate Ordering Physician: Terry Pope Referring Physician: Azalia Wu Performed By: Bisi Rice, JUANITO, RVT
== END | disposition home or self-care (01) ==
LOC: CVS 13:07
PROVIDERS: PCP Internal Medicine; Referring Provider Physician Assistant; Visit Provider Physician Assistant
DX: M79.662 Pain in left lower leg (principal)
CPT/HCPCS: 93971

== ENCOUNTER → 2022-12-09 | Outpatient (CLI) | payer OTHER, SELFPAY ==
[2022-12-09 10:14] LABS: Absolute Lymphocyte Count 1.34 X10^3/uL (0.83-4.51); Absolute Neutrophil Count 2.1 X10^3/uL (2.0-7.7); Basophil# 0.06 X10^3/uL; Basophil% 1.5 % (0-1); Eosinophil# 0.09 X10^3/uL; Eosinophils% 2.2 % (0-5); Hematocrit 37.8 % (37-47); Hemoglobin 12.5 g/dL (12.0-15.0); Lymphocyte # 1.34 X10^3/ul (0.83-4.51); Lymphocyte % 33.4 % (19-41); Mean Corp Hgb Conc 33.1 g/dL (32-36); Mean Corpuscular Hgb 31.5 pg (27.0-32.0); Mean Corpuscular Volume 95.2 fL (81-99); Monocyte# 0.38 X10^3/uL; Monocyte% 9.5 % (0-10); NRBC Flagged by Analyzer 0 % (0-5); Neutrophil # 2.13 X10^3/uL (2.7-7.7); Neutrophil % 53.2 % (47-70); Platelet Count 235 K/mm3 (150-450); RBC Distribution Width CV 12.9 % (11.6-14.6); RBC Distribution Width SD 45.1 fl (35.1-43.9); Red Blood Count 3.97 M/mm3 (4.2-5.4)
[2022-12-09 10:42] LABS: Color, Urine Yellow (Yellow); Glucose, Dipstick Normal (Normal); Ketone-Dipstick Negative (Negative); Leukocyte Esterase-Dipstick Negative /ul (Negative); Nitrite-Dipstick Negative (Negative); Occult Blood-Urine Negative /ul (Negative); Protein-Dipstick Negative (Negative); Urine Bilirubin Dipstick Negative (Negative); Urine Clarity Clear (Clear); Urine Urobilinogen Normal (Normal); Urine pH 6.5 (5.0 - 8.0)
[2022-12-09 11:09] LABS: ALB/GLOB Ratio 1.2 RATIO (0.9-2.4); AST(SGOT) 19 U/L (15-37); Alanine Aminotransfer ALT/SGPT 20 U/L (13-56); Albumin, Serum 4.2 g/dL (3.2-5.0); Alkaline Phosphatase 42 U/L (45-117); Anion Gap 6 (5-15); BUN 11 mg/dL (7-18); BUN/Creat Ratio 16.4 RATIO (10-20); CRP < 2.90 mg/L (0.0-3.0); Calcium,Total 9.1 mg/dL (8.5-10.1); Chloride 104 mmol/L (98-107); Creatinine, Serum 0.67 mg/dL (0.55-1.02); EST Glomerular Filtration Rate 96 mL/min (>60); Est Glom Filt Rate - Afr Amer 117 mL/min (>60); Globulin 3.4 g/dL (2.2-4.2); Glucose 90 mg/dL (74-106); Potassium 3.6 mmol/L (3.5-5.1); Protein, Total 7.6 g/dL (6.4-8.2); Sodium Level 136 mmol/L (136-145)
[2022-12-11 15:53] LABS: Thyroid Stim Hormone (TSH) 1.37 uIU/mL (0.358-3.74)
== END | disposition home or self-care (01) ==
LOC: LAB 09:46
PROVIDERS: PCP Internal Medicine; Referring Provider Internal Medicine Rheumatology; Visit Provider Internal Medicine Rheumatology
DX: M32.9 Systemic lupus erythematosus, unspecified (principal)
CPT/HCPCS: 36415; 80053; 81002; 84443; 85025; 86140

== ENCOUNTER → 2022-12-18 | Outpatient (CLI) | payer OTHER, SELFPAY ==
--- NOTE | 2022-12-18 06:33 | MRI_ITS ---
PROCEDURE: MRI LOWER EXTREMITY LEFT TIBIA/FIBULA REASON FOR EXAM: Female, 57 years old. Pain and injury - Attention musculature of the calf (plantaris versus myotendinous gastroc). TECHNIQUE: Standardized fat and water weighted pulse sequences were obtained in all 3 orthogonal planes. COMPARISON: Left tibia/fibula radiographs dated 11/18/2022. FINDINGS: Normal tibia and fibula, without a periosteal, cortical or cancellous marrow abnormality. There is a partially imaged popliteal cyst, with fluid signal tracking inferiorly along the medial superficial myofascial planes of the soleus and medial head of the gastrocnemius muscles, down to the level of the distal gastrocnemius myotendinous junction (sagittal STIR series 4 images 3-5; axial STIR series 7 images 1-35), which could be related to a ruptured popliteal cyst versus gastrocnemius partial tear. Normal anterior and lateral calf compartments, with normal muscles, crural fascia and intermuscular septa. Normal subcutis adipose space, without subcutis adipose space edema. There is no solid, cystic or lipomatous mass lesion of the subcutis adipose space. MRI/Lower Ext/No Jt/w/o IMPRESSION: Partially imaged popliteal cyst, with fluid signal tracking inferiorly along the medial superficial myofascial planes of the soleus and medial head of the gastrocnemius muscles, down to the level of the distal gastrocnemius myotendinous junction, which could be related to a ruptured popliteal cyst versus gastrocnemius partial tear. Electronically Signed: Eduardo Esquivel MD at 9:02 EDT ,
== END | disposition home or self-care (01) ==
LOC: MRI 06:30
PROVIDERS: PCP Internal Medicine; Referring Provider Physician Assistant; Visit Provider Physician Assistant
DX: M79.662 Pain in left lower leg (principal); S96.812A Strain of other specified muscles and tendons at ankle and foot level, left foot, initial encounter
CPT/HCPCS: 73718

== ENCOUNTER → 2023-02-10 | Outpatient (CLI) | payer OTHER, SELFPAY ==
[2023-02-10 13:19] LABS: Absolute Lymphocyte Count 1.69 X10^3/uL (0.83-4.51); Absolute Neutrophil Count 2.7 X10^3/uL (2.0-7.7); Basophil# 0.05 X10^3/uL; Eosinophil# 0.03 X10^3/uL; Eosinophils% 0.6 % (0-5); Hematocrit 34.9 % (37-47); Hemoglobin 11.5 g/dL (12.0-15.0); Lymphocyte # 1.69 X10^3/ul (0.83-4.51); Lymphocyte % 34.2 % (19-41); Mean Corpuscular Hgb 31.1 pg (27.0-32.0); Mean Corpuscular Volume 94.3 fL (81-99); Monocyte# 0.44 X10^3/uL; Monocyte% 8.9 % (0-10); NRBC Flagged by Analyzer 0 % (0-5); Neutrophil # 2.72 X10^3/uL (2.7-7.7); Neutrophil % 55.1 % (47-70); Platelet Count 215 K/mm3 (150-450); RBC Distribution Width CV 12.6 % (11.6-14.6); RBC Distribution Width SD 43.7 fl (35.1-43.9); White Blood Count 4.9 K/mm3 (4.4-11.0)
[2023-02-10 13:55] LABS: ALB/GLOB Ratio 1.3 RATIO (0.9-2.4); AST(SGOT) 17 U/L (15-37); Alanine Aminotransfer ALT/SGPT 16 U/L (13-56); Alkaline Phosphatase 42 U/L (45-117); Anion Gap 7 (5-15); BUN 4 mg/dL (7-18); BUN/Creat Ratio 6.4 RATIO (10-20); CRP < 2.90 mg/L (0.0-3.0); Chloride 103 mmol/L (98-107); Creatinine, Serum 0.63 mg/dL (0.55-1.02); EST Glomerular Filtration Rate 105 mL/min (>60); Est Glom Filt Rate - Afr Amer 126 mL/min (>60); Globulin 3.1 g/dL (2.2-4.2); Glucose 88 mg/dL (74-106); Potassium 3.7 mmol/L (3.5-5.1); Protein, Total 7.1 g/dL (6.4-8.2); Sodium Level 136 mmol/L (136-145)
== END | disposition home or self-care (01) ==
PROVIDERS: PCP Internal Medicine; Referring Provider Internal Medicine Rheumatology; Visit Provider Internal Medicine Rheumatology
DX: M32.9 Systemic lupus erythematosus, unspecified (principal)
CPT/HCPCS: 36415; 80053; 85025; 86140

== ENCOUNTER → 2023-04-07 | Outpatient (CLI) | payer OTHER, SELFPAY ==
[2023-04-07 10:17] LABS: Absolute Lymphocyte Count 1.44 X10^3/uL (0.83-4.51); Absolute Neutrophil Count 1.7 X10^3/uL (2.0-7.7); Basophil# 0.03 X10^3/uL; Basophil% 0.8 % (0-1); Eosinophil# 0.08 X10^3/uL; Eosinophils% 2.2 % (0-5); Hematocrit 34.3 % (37-47); Hemoglobin 11.4 g/dL (12.0-15.0); Lymphocyte # 1.44 X10^3/ul (0.83-4.51); Lymphocyte % 39.9 % (19-41); Mean Corp Hgb Conc 33.2 g/dL (32-36); Mean Corpuscular Hgb 31.2 pg (27.0-32.0); Mean Platelet Vol. 10.7 fl (6.2-12.0); Monocyte# 0.39 X10^3/uL; Monocyte% 10.8 % (0-10); NRBC Flagged by Analyzer 0 % (0-5); Neutrophil # 1.66 X10^3/uL (2.7-7.7); Platelet Count 226 K/mm3 (150-450); RBC Distribution Width CV 12.6 % (11.6-14.6); RBC Distribution Width SD 43.8 fl (35.1-43.9); Red Blood Count 3.65 M/mm3 (4.2-5.4); White Blood Count 3.6 K/mm3 (4.4-11.0)
--- OUTSIDE RECORDS SUMMARY | 2023-04-07 10:22 | XMS RPT_ITS | CCD ---
Author Name Unknown Address [address] [place] [address] Organization [facility] Care Team Providers Care Invoice Classification Clerk Name Role Phone Shelly Barrera LPN Unavailable Unavailab Iris Martinez Unavailable Unavailable Bryant LOPEZ, Alka Wetzel Unavailable Unavailab Vannessa Christy Unavailable Unavailable Shelly Barrera LPN Unavailable Unavailab Fabián Marquez Unavailable Unavailable Unavailable Unavailable Unavailable Azalia Wu Unavailable Jeremy Trujillo Attending Unavailable Jeremy Trujillo Referring Unavailable Dr. Azalia Wu Primary Care Unavailable Jeremy Trujillo Attending Unavailable Jeremy Trujillo Referring Unavailable Dr. Azalia Wu Primary Care Unavailable Jeremy Trujillo Attending Unavailable Dr. Azalia Wu Primary Care Unavailable Dr. Azalia Wu Referring Unavailable Erin, Dr. Pawan Rios Attending Unavaila ble Erin, Dr. Pawan Rios Referring Unavaila Dr. Azalai Hair Primary Care Unavailable Jeremy Trujillo Attending Unavailable Dr. Azalia Wu Primary Care Unavailable Bryce TAYLOR, Azalia Muro Primary Care Prov ider JEREMY TRUJILLO Attending Unavailable AZALIA WU Primary Care Unav ailable Allergies Allergy Classification Reported Allergen(s) Allergy Type Date of Onset Reaction(s) Facility (5 sources) hydroxychloroquine drug allergy Toxic level in her body. [facility] Work Phone: Medications Current Medications Medication Drug Class(es) Dates Sig (Normalized) Sig (Original) [id number] 200 actuat albuterol 0.09 mg/actuat metered dose inhaler (1 source) beta2-Adrenergic Agonist Start: 12-11-2022 take 2 puff(s) by inhalation every four hours albuterol 90 mcg/actuation inhaler Inhale 2 puffs every 4 hours if needed. 0 12/11/2022 Active celecoxib 100 mg oral capsule (18 sources) Nonsteroidal Anti-inflammatory Drug CeleBREX 100 mg capsule 1 capsule (100 mg) once daily. 0 Active Completed/Discontinued Medications Medication Drug Class(es) Dates Sig (Normalized) Sig (Original) ascorbic acid 500 mg oral tablet (5 sources) Vitamin C Start: 05-21-2016 CALCIUM ASCORBATE 500 MG TABS daily CALCIUM ASCORBATE [id number] Iris Alexander azithromycin 250 mg oral tablet (1 source) Macrolide Antimicrobial Start: 04-02-2022 Azithromycin 250 MG Oral Tablet Quantity: 6 Refills: 0 Ordered: 02-Apr-2022 DO Start : 02-Apr-2022 Complete B COMPLEX VITAMINS (2 sources) Start: 10-20-2013 B COMPLEX CAPS daily B COMPLEX VITAMINS [id number] Fabián Ruiz DO B COMPLEX VITAMINS (3 sources) Start: 10-20-2013 B COMPLEX CAPS daily B COMPLEX VITAMINS [id number] Fabián Ruiz DO Problems Active Problems Problem Classification Problem Date Documented Date Episodic/Chronic Blindness and vision defects (9 sources) Visual disturbance; Translations: [Unspecified visual disturbance] Episodic Conditions associated with dizziness or vertigo (12 sources) Dizziness; Translations: [Dizziness and giddiness] Episodic Esophageal disorders (17 sources) Gastroesophageal reflux disease without esophagitis; Translations: [Esophageal reflux] Chronic Headache; including migraine (20 sources) Refractory migraine with aura; Translations: [Migraine with aura, with intractable migraine, so stated, with status migrainosus] Chronic Osteoarthritis (17 sources) Arthritis; Translations: [Arthropathy, unspecified, site unspecified] Chronic Other connective tissue disease (9 sources) Pain in lower limb; Translations: [Pain in limb] Episodic Other nervous system disorders (12 sources) Numbness of tongue; Translations: [Disturbance of skin sensation] Episodic Other nervous system disorders (12 sources) Paresthesia; Translations: [Disturbance of skin sensation] Episodic Other nervous system disorders (9 sources) Paresthesia of hand ; Translations: [Disturbance of skin sensation] Episodic Retinal detachments; defects; vascular occlusion; and retinopathy (5 sources) Degenerative disorder of macula ; Translations: [Unspecified macular degeneration] Onset: 06-03-2014 06-03-2014 Chronic Spondylosis; intervertebral disc disorders; other back problems (9 sources) Backache; Translations: [Backache, unspecified] Episodic Systemic lupus erythematosus and connective tissue disorders (20 sources) Systemic lupus erythematosus; Translations: [Systemic lupus erythematosus] Onset: 10-20-2013 10-20-2013 Chronic Thyroid disorders (5 sources) Hypothyroidism; Translations: [Hypothyroidism, unspecified] Onset: 10-20-2013 10-20-2013 Chronic Unclassified (2 sources) Screening for malignant neoplasm of breast ; Translations: [Other specified health status] Onset: 12-30-2013 12-30-2013 Past or Other Problems Problem Classification Problem Date Documented Da te Episodic/Chronic Other aftercare (4 sources) Other long-term (current) drug therapy; Translations: [Other long-term (current) drug therapy] Onset: 06-03-2014 Resolved: 06-06-2014 06-06-2014 Episodic Other lower respiratory disease (5 sources) Chronic cough; Translations: [Cough] Onset: 06-14-2016 06-14-2016 Episodic Other nervous system disorders (1 source) Anesthesia of skin; Translations: [Anesthesia of skin] Onset: 06-25-2022 Episodic Other nervous system disorders (1 source) Paresthesia of skin; Translations: [Paresthesia of skin] Onset: 06-25-2022 Episodic Residual codes; unclassified (5 sources) Edema; Translations: [Edema, unspecified] Onset: 06-14-2016 06-14-2016 Episodic Unclassified (6 sources) Long-term drug therapy; Translations: [Other long-term (current) drug therapy] Onset: 06-03-2014 Resolved: 06-06-2014 06-06-2014 Results Test Name Value Interpretation Reference Range Facil ity Vital Signs Date Time Vital Sign Value Performing Clinician Facility 03-12-2023 14:0500 Body height 160 cm Jeremy Trujillo MD Work Phone: [facility] 03-12-2023 14:21-0500 Body mass index (BMI) [Ratio] 23.74 kg/m2 Jeremy Trujillo MD Work Phone: [facility] 03-12-2023 14:050 Body temperature 97.81 [degF] Jeremy Trujillo MD Work Phone: [facility] 03-12-2023 14:050 Body weight 60.78 kg Jeremy Trujillo MD Work Phone: [facility] 03-12-2023 14:050 Diastolic blood pressure 67 mm[Hg] Jeremy Trujillo MD Work Phone: [facility] 03-12-2023 14:-050 Heart rate 73 /min Jeremy Trujillo MD Work Phone: [facility] 03-12-2023 14:21-0500 Systolic blood pressure 117 mm[Hg] Jeremy Trujillo MD Work Phone: [facility] 12-04-2022 15:11-0400 Body height 160.02 cm Azalia Wu Work Phone: VZ-Hlxknkzfngwh-Swe Work Phone: 12-04-2022 15:11-0400 Body mass index (BMI) [Ratio] 22.5 kg/m2 Azalia Hille Work Phone: WE-Gbdbgbyxsibx-Qtn on Work Phone: 12-04-2022 15:11-0400 Body surface area Derived from formula 1.59 m2 Azalia Hille Work Phone: PF-Jgrhoseqgnpx-Zty Work Phone: 12-04-2022 15:11-0400 Body temperature 97.5 [degF] Azalia Wu Work Phone: BI-Nfswsduapfng-Hlf onion Work Phone: 12-04-2022 15:11-0400 Body weight 57.61 kg Efgely Wu Work Phone: QM-Hcdalkojntyo-Xfz [place] Work Phone: 12-04-2022 15:11-0400 Diastolic blood pressure 68 mm[Hg] Efgely Wu Work Phone: NW-Rqdylxgylrzo-Bwt [place] Work Phone: 12-04-2022 15:11-0400 Heart rate 73 /min Efgely Wu Work Phone: EE-Gfhqjaaywbet-Dxs [place] Work Phone: 12-04-2022 15:11-0400 Systolic blood pressure 105 mm[Hg] Efgely Wu Work Phone: AC-Mlaoeltbyrsp-Wld [place] Work Phone: 12-04-2022 15:11-0400 4 1 Azalia Wu Work Phone: VT-Zrndqujllxpk-Bob [place] Work Phone: Encounters Encounter Date Encounter Type Care Provider Facility Start: 03-12-2023 End: 03-12-2023 ambulatory JEREMY Patel [facility] Ambulatory Start: 03-12-2023 End: 03-12-2023 Office outpatient visit 15 minutes Jeremy Trujillo MD Work Phone: [facility] Procedures Date Procedure Procedure Detail Performing Clinician Start: 03-12-2023 Follow-up visit Follow-up JEREMY TRUJILLO Start: 06-07-2014 End: 06-07-2014 *CBC with Differential Fabián Fitzpatrick Work Phone: Start: 06-07-2014 End: 06-07-2014 Thyrotropin [Units/volume] in Serum or Plasma Fabián Ruiz DO Work Phone: Start: 06-07-2014 End: 06-07-2014 *CBC with Differential Fabián Fitzpatrick Work Phone: Start: 06-07-2014 End: 06-07-2014 Thyroid stimulating hormone (TSH) Fabián Ruiz DO Work Phone: Start: 06-03-2014 End: 06-06-2014 *ASHLEY Fabián Ruiz DO Work Phone: Start: 06-03-2014 End: 06-06-2014 *CBC with Differential Fabián Patel O Work Phone: Start: 06-03-2014 End: 06-06-2014 *CMP Complete Metabolic Panel Fabián hunter DO Work Phone: Start: 06-03-2014 End: 06-06-2014 Acute hepatitis panel Fabián Ruiz DO [employer] Phone: Start: 06-03-2014 End: 06-06-2014 C reactive protein [Mass/volume] in Serum or Plasma by High sensitivity method Fabián Ruiz DO Work Phone: Start: 06-03-2014 End: 06-06-2014 Chest x-ray Fabián Ruiz DO Work Phone: Start: 06-03-2014 End: 06-06-2014 Choriogonadotropin ( test) [Presence] in Serum or Plasma Fabián Ruiz DO Work Phone: Start: 06-03-2014 End: 06-06-2014 Erythrocyte sedimentation rate Fabián Ruiz DO Work Phone: Start: 06-03-2014 End: 06-06-2014 Urinalysis complete panel - Urine Fabián Ruiz DO Work Phone: Start: 06-03-2014 End: 06-06-2014 *ASHLEY Fabián Ruiz DO Work Phone: Start: 06-03-2014 End: 06-06-2014 *CBC with Differential Fabián Patel O Work Phone: Start: 06-03-2014 End: 06-06-2014 *CMP Complete Metabolic Panel Fabián hunter DO [employer] Phone: Start: 06-03-2014 End: 06-06-2014 Acute hepatitis panel Fabián Ruiz DO [employer] Phone: Start: 06-03-2014 End: 06-06-2014 C reactive protein (hsCRP) Fabián gann DO Work Phone: Start: 06-03-2014 End: 06-06-2014 Chest x-ray Fabián Ruiz DO [employer] Phone: Start: 06-03-2014 End: 06-06-2014 Choriogonadotropin ( test) [Presence] in Serum or Plasma Fabián Ruiz DO [employer] Phone: Start: 06-03-2014 End: 06-06-2014 Erythrocyte sedimentation rate Fabián Ruiz DO [employer] Phone: Start: 06-03-2014 End: 06-06-2014 Urinalysis complete panel - Urine Fabián Ruiz DO [employer] Phone: Start: 12-30-2013 End: 06-06-2014 Mammogram, Screening, both breasts Fabián Ruiz DO [employer] Phone: Start: 12-30-2013 Screening for malignant neoplasm of breast Screening for breast cancer Alka Hurtado LPN Start: 12-30-2013 End: 06-06-2014 Mammogram, Screening, both breasts Fabián Ruiz DO [employer] Phone: Start: 12-30-2013 Screening for malignant neoplasm of breast Screening for breast cancer Vannessa Hoffmann Start: 10-20-2013 End: 10-21-2013 *CBC with Differential Fabián Steel Sara Amanda O Work Phone: Start: 10-20-2013 End: 10-21-2013 Thyrotropin [Units/volume] in Serum or Plasma Fabián Ruiz DO [employer] Phone: Start: 10-20-2013 End: 10-21-2013 *CBC with Differential Fabián A Sara D O Work Phone: Start: 10-20-2013 End: 10-21-2013 Thyroid stimulating hormone (TSH) Fabián Ruiz DO Work Phone: Plan of Treatment Date Care Activity Detail Author Start: 06-07-2031 DTaP/Tdap/Td Vaccines (2 - Td or Tdap) DTaP/Tdap/Td Vaccines (2 - Td or Tdap) [facility] Start: 10-22-2023 End: 10-22-2023 Patient encounter procedure 10/22/2023 2:00 PM EDT Office Visit [address] [place] [id number] Jeremy Trujillo MD [address] [address] [facility] Start: 06-04-2023 FUV, Provider: Jeremy Trujillo, Status: Pen, Time: 3:00 PM FUV, Provider: Jeremy Trujillo, Status: Pen, Time: 3:00 PM AQ-Auvwucxisgjx-Vovk [place] Work Phone: Start: 06-04-2023 End: 06-04-2023 Patient encounter procedure 06/04/2023 3:00 PM EST Office Visit [address] [place] [id number] Jeremy Trujillo MD [address] [address] [facility] Start: 03-12-2023 FUV, Provider: Jeremy Trujillo, Status: Pen, Time: 2:00 PM FUV, Provider: Jeremy Trujillo, Status: Pen, Time: 2:00 PM YU-Oeaazrgboyfl-Muqh [place] Work Phone: Start: 12-04-2022 FUV, Provider: Jeremy Trujillo, Status: Pen, Time: 2:40 PM FUV, Provider: Jeremy Trujillo, Status: Pen, Time: 2:40 PM XT-Gfkhbieghqop-Ftrv [address] Work Phone: Start: 08-07-2022 FUV, Provider: Jeremy Trujillo, Status: Pen, Time: 3:00 PM FUV, Provider: Jeremy Trujillo, Status: Pen, Time: 3:00 PM WH-Jztokpzrhjwm-Sagq [place] Work Phone: Start: 03-11-2022 FUVGENERAL, Provider: Pawan Khan, Status: Pen, Time: 4:30 PM FUVGENERAL, Provider: Pawan Khan, Status: Pen, Time: 4:30 PM RE-Povvmweoq-Rwjsgos [address] Work Phone: Start: 02-08-2022 COVID-19 Vaccine (3 - Moderna risk series) COVID-19 Vaccine (3 - Moderna risk series) [facility] Start: 01-16-2022 FUV, Provider: Jeremy Trujillo, Status: Pen, Time: 2:40 PM FUV, Provider: Jeremy Trujillo, Status: Pen, Time: 2:40 PM ML-Ljqojfiokzej-Lwkc n [place] Work Phone: Start: 12-17-2021 FUVGENERAL, Provider: Pawan Khan, Status: Pen, Time: 4:30 PM FUVGENERAL, Provider: Pawan Khan, Status: Pen, Time: 4:30 PM LK-Ftkukpjtgdny-Zvyc field [address] DO Work Phone: Start: 10-02-2021 NPVGENERAL, Provider: Pawan Khan, Status: Pen, Time: 3:15 PM NPVGENERAL, Provider: Pawan Khan, Status: Pen, Time: 3:15 PM [facility] Work Phone: Start: 07-18-2021 FUV, Provider: Jeremy Trujillo, Status: Pen, Time: 4:00 PM FUV, Provider: Jeremy Trujillo, Status: Pen, Time: 4:00 PM KU-Bvwhmhvkyggt-Vzqu [facility] [address] Work Phone: Start: 03-19-2017 End: 03-19-2017 Appointment Appointment [facility] Work Phone: Start: 01-01-2017 End: 01-01-2017 Appointment Appointment [facility] Work Phone: Start: 09-18-2016 End: 09-18-2016 Follow Up Appt 6 months Follow Up Appt 6 months [facility] Work Phone: Start: 09-18-2016 End: 09-18-2016 Follow Up Appt 6 months Follow Up Appt 6 months [facility] Work Phone: Start: 06-14-2016 End: 06-14-2016 Ct thorax w/o contrast material CT Chest without contrast [facility] Work Phone: Start: 06-14-2016 End: 06-14-2016 Echo tthrc r-t 2d w/wom-mode compl spec&colr d Echo Complete with Color Flow [facility] Work Phone: Start: 06-14-2016 End: 06-14-2016 Follow Up Appt 3 months Follow Up Appt 3 months [facility] Work Phone: Start: 06-14-2016 End: 06-14-2016 Ct thorax w/o dye CT Chest without contrast [facility] Work Phone: Start: 06-14-2016 End: 06-14-2016 Follow Up Appt 3 months Follow Up Appt 3 months [facility] Work Phone: Start: 06-14-2016 End: 06-14-2016 Tte w/doppler, complete Echo Complete with Color Flow [facility] Work Phone: Start: 08-21-2015 End: 08-21-2015 Mammogram, screening Mammogram, Screening, both breasts [facility] Work Phone: Start: 08-21-2015 End: 08-21-2015 Mammogram, screening Mammogram, Screening, both breasts [facility] Work Phone: Start: 10-21-2014 End: 06-07-2014 *CBC with Differential *CBC with Differential [facility] Work Phone: Start: 10-21-2014 End: 06-07-2014 *CBC with Differential *CBC with Differential [facility] Work Phone: Start: 10-19-2014 End: 06-07-2014 Thyrotropin Qn *TSH [facility] Work Phone: Start: 10-19-2014 End: 06-07-2014 Thyroid stimulating hormone (TSH) *TSH [facility] Work Phone: Start: 06-03-2014 End: 06-06-2014 *ASHLEY *ASHLEY [facility] Work Phone: Start: 06-03-2014 End: 06-06-2014 *CBC with Differential *CBC with Differential [facility] Work Phone: Start: 06-03-2014 End: 06-06-2014 *CMP Complete Metabolic Panel *CMP Complete Metabolic Panel [facility] Work Phone: Start: 06-03-2014 End: 06-06-2014 Acute hepatitis panel Hepatitis Panel [facility] Work Phone: Start: 06-03-2014 End: 06-06-2014 Chest x-ray X-Ray, Chest, PA & Lateral [facility] Work Phone: Start: 06-03-2014 End: 06-06-2014 CRP High sensitivity method mass conc *CRP - C-Reative Protein [facility] Work Phone: Start: 06-03-2014 End: 06-06-2014 ESR Velocity (Bld) *Sedimentation Rate (ESR) [facility] Work Phone: Start: 06-03-2014 End: 06-06-2014 HCG ( test) Ql *PREGS - Qualitative, Serum [facility] Work Phone: Start: 06-03-2014 End: 06-06-2014 Urinalysis complete panel - Urine *UAC- Urinalysis, Complete w/ Micro [facility] Work Phone: Start: 06-03-2014 End: 06-06-2014 *ASHLEY *ASHLEY [facility] Phone: Start: 06-03-2014 End: 06-06-2014 *CBC with Differential *CBC with Differential [facility] Phone: Start: 06-03-2014 End: 06-06-2014 *CMP Complete Metabolic Panel *CMP Complete Metabolic Panel [facility] Phone: Start: 06-03-2014 End: 06-06-2014 Acute hepatitis panel Hepatitis Panel [facility] Phone: Start: 06-03-2014 End: 06-06-2014 C reactive protein (hsCRP) *CRP - C-Reative Protein [facility] Phone: Start: 06-03-2014 End: 06-06-2014 Chest x-ray X-Ray, Chest, PA & Lateral [facility] Phone: Start: 06-03-2014 End: 06-06-2014 Choriogonadotropin ( test) [Presence] in Serum or Plasma *PREGS - Qualitative, Serum [facility] Phone: Start: 06-03-2014 End: 06-06-2014 Erythrocyte sedimentation rate *Sedimentation Rate (ESR) [facility] Phone: Start: 06-03-2014 End: 06-06-2014 Urinalysis complete panel - Urine *UAC- Urinalysis, Complete w/ Micro [facility] Phone: Start: 12-30-2013 End: 06-06-2014 Mammogram, Screening, both breasts Mammogram, Screening, both breasts [facility] Work Phone: Start: 12-30-2013 End: 06-06-2014 Mammogram, Screening, both breasts Mammogram, Screening, both breasts [facility] Phone: Start: 10-20-2013 End: 10-21-2013 *CBC with Differential *CBC with Differential [facility] Work Phone: Start: 10-20-2013 End: 10-20-2013 Follow Up Appt 1 year Follow Up Appt 1 year [facility] Work Phone: Start: 10-20-2013 End: 10-21-2013 Thyrotropin Qn *TSH [facility] Work Phone: Start: 10-20-2013 End: 10-21-2013 *CBC with Differential *CBC with Differential [facility] Work Phone: Start: 10-20-2013 End: 10-20-2013 Follow Up Appt 1 year Follow Up Appt 1 year [facility] Work Phone: Start: 10-20-2013 End: 10-21-2013 Thyroid stimulating hormone (TSH) *TSH [facility] Work Phone: Start: 03-16-2009 MMR Vaccines (1 of 1 - Standard series) MMR Vaccines (1 of 1 - Standard series) [facility] Start: 2006 Screening for malignant neoplasm of breast Mammogram [facility] Start: 08-03-1987 Screening for malignant neoplasm of cervix [facility] Start: 1984 Hepatitis C screening Hepatitis C Screening [facility] Start: 1972 Pneumococcal Vaccine: Pediatrics (0 to 5 Years) and At-Risk Patients (6 to 64 Years) (1 - PCV) Pneumococcal Vaccine: Pediatrics (0 to 5 Years) and At-Risk Patients (6 to 64 Years) (1 - PCV) [facility] Start: 1966 Hepatitis B Vaccines (1 of 3 - 3-dose series) Hepatitis B Vaccines (1 of 3 - 3-dose series) [facility] Start: 1966 HIV screening HIV Screening [facility] Start: 1966 Lipid panel Lipid Panel [facility] Start: 1966 Screening for malignant neoplasm of colon [facility] Start: 1966 Thyroid stimulating hormone measurement TSH Level [facility] Start: 1966 Yearly Adult Physical Yearly Adult Physical [facility] Payers Date Payer Category Payer Unknown 2022 Unknown [id number] 1965 Unknown [id number] [id number]. [id number] 1966 Unknown [id number] 2.16. [id number] 1966 Unknown [id number] 2.16. [id number] 1966 Unknown [id number] 2.16. [id number] 1966 Unknown [id number] 2.16. [id number] 1966 Unknown [id number] Private Health Insurance [id number] Unknown [id number] Social History Date Type Detail Facility Never smoker Never smoker [facility] [place][note 2] [address] [facility] Work Phone: Tobacco smoking stat [facility] Tobacco smoking consumption unknown [facility] Work Phone: Start: 1965 Sex Assigned At Female U [facility] Start: 03-12-2023 Gender identity Identifies as female gender (finding) [facility] Work Phone: Sexual orientation Not on file [facility] Work Phone: Start: 03-02-2023 End: 03-12-2023 Exposure to SARS-CoV-2 (event) Not sure [facility] Clinical Notes 07-11-2019 to 03-12-2023 Jeremy Trujillo MD - 03/12/2023 2:00 PM EST Note Date & Type Note Facility 03-12-2023 History of Present illness Narrative PP: 57 year-old female with history of systemic lupus erythematosus, Annette's thyroiditis, asthma. CC: Recurrent musculoskeletal pain. KAKE: She was diagnosed with systemic lupus erythematosus approximately 25 years ago with the of her son. She had recurrent rashes, recurrent mouth sores, and joint pain. She had elevated ASHLEY levels in the past as well as has a history of 1 early trimester miscarriage. She has not had any pleural effusions or blood clots. She had was treated with hydroxychloroquine in the past but was discontinued due to retinal problems. She takes prednisone intermittently as needed for exacerbation of lupus symptoms. She currently notes pain involving her knees hands and hips, left more than right. She has some improvement in the musculoskeletal pain with taking Celebrex 100 mg daily. 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 SH: She denies any tobacco or illicit drug use. Alcohol 3 drinks wine twice per week. 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 with 1 miscarriage at 14 weeks gestation. ROS: She has recurrent episodes of her hips or knees giving out. She has pain in the soles of her feet that improved with orthotics and after weight reduction. PX: She is a well-developed, well-nourished, white female. The lungs, heart, abdomen, and extremities are benign. The musculoskeletal examination shows normal passive range of motion of the upper and lower extremity joints without joint effusions.There is tenderness at the wrists and knees. Laboratory (05/31/2019) ASHLEY negative, thyroid peroxidase 115, thyroid globulin antibody <1.0. Impression: 57 year-old white female with history of asthma, recurrent urinary tract infections with ureterovesical reflux, Annette's thyroiditis, and systemic lupus erythematosus with recurrent arthralgia, mucosal ulcers, rash, photosensitivity, cold sensitivity. She is no longer taking hydroxychloroquine due to retinal problems. Plan: Increase mycophenolate to 250 mg every morning and 500 mg every evening. Continue hydroxychloroquine at 200 mg once per day. She is to have laboratory for follow-up of mycophenolate therapy. She is to return at the next available office appointment. documented in this encounter [facility] Work Phone: 11-14-2022 History of Present illness Narrative She developed significant pain in the left knee and left posterior calf after participating in the [employer] run 3 weeks ago. She was evaluated by orthopedics and found to have a peroneal tendon tear in the left calf and continues to have a left popliteal cyst. She is planning to have MRI scan of the left knee for further evaluation. She notes otherwise that the pain in her joints have been under improved control with taking mycophenolate and hydroxychloroquine.The lungs, heart, abdomen, and extremities are benign. The musculoskeletal examination does not show any joint effusions. There is good passive range of motion of the upper and lower extremity joints with slight hyperextension of the knees. There is no tenderness to palpation of the ankles or heels.Laboratory (11/15/2022) WBC 3.7, hemoglobin 12.2, hematocrit 36.7, MCV 94.8, MCHC 33.2, platelets 220, sodium 128, potassium 4.1, BUN 7, creatinine 0.56, glucose 82, AST 15, ALT 17, alkaline phosphatase 40, CRP <2.90.She has history of L3/L4 disc herniation, right L3 nerve root impingement, migraine, GERD, Reyez's esophagus, negative HLA-B27, and systemic lupus erythematosus. She has mild leukopenia, mild hyponatremia.She is to continue hydroxychloroquine 200 mg daily and mycophenolate 250 mg twice daily. She is to have laboratory for follow-up of mycophenolate therapy. She is to return in 4 to 6 months. NO-Krikbxsxxmvr-Tpmtmbesxb le Work Phone: 03-31-2021 History of Present illness Narrative This is a 56 year old female presenting with complaints of headaches.Starting in March 2021, the patient was performing a yoga maneuver during which she was upside down. She then developed a grayish circular visual disturbance lasting for 2 days along with a severe right sided headache and both tongue and bilateral facial numbness (of the lower part of the face).Since then, she has been having constant headaches described as a right sided aching pain. Once a week approximately, she will then see the right sided visual graying disturbance along with a more severe and throbbing in quality headache with associated nausea, photophobia, and phonophobia. She was prescribed sumatriptan 25 mg which she feels does not provide any relief.She continues to have constant tongue and bilateral facial numbness (of the lower part of the face).Since March, the patient has also been having numbness and tingling in both hands. She does endorse having a prior history of CTS but she has already had bilateral carpal tunnel surgery. The patient has a history of chronic lower back pain but since March, she has been having electric shock like pain as well in the lower back along with electric-like pains that course their way through both legs frequently. KW-Omspuyjirwtl-Cxrawuzig 201 DO Work Phone: 03-31-2021 History of Present illness Narrative This is a 56 year old female presenting for follow up.Starting in March 2021, the patient was performing a yoga maneuver during which she was upside down. She then developed a grayish circular visual disturbance lasting for 2 days along with a severe right sided headache and both tongue and bilateral facial numbness (of the lower part of the face).Since then, she has been constant headaches described as a right sided aching pain. At one point, she also saw a right sided visual graying disturbance during one of her headaches. Sometimes, her headaches become more severe with associated nausea, photophobia, phonophobia, and dizziness.She has also been having numbness and tingling in both hands. She does endorse having a prior history of CTS but she has already had bilateral carpal tunnel surgery. The patient has a history of chronic lower back pain but does not currently feel that it is significant or has increased. She endorses having some occasional mild pains that radiate down the back of either leg but she reports that it does not bother her much.She reports improvement in the intensity of her headaches while taking Topamax 50 mg BID but she still gets them (albeit milder) on a daily basis. Sometimes, she will also get a more intense headaches (i.e.migraine). 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 VI-Tjkdoxrcc-Jzjenbwzp 201 Work Phone: 07-14-2019 History of Present illness Narrative Patient referred by Dr. Eaton history significant for SLE, hypothyroidism, and GERD here today to discuss headache. Reports one brother with history of positional headaches, told that he had white matter disease.She got first migraines starting 2 years ago that occurred going from dark to light environment, was unable to see out of right eye completely, had a horrible headache, lasted 15 minutes and passed after sitting down. Occurred again one year later lasting 15 minutes.Headaches described as right forehead, sometimes can occur in center, sometimes to protestant or back of head. Headaches associated with nausea, dizziness, photophobia/phonophobia.Triggers include light (big changes in light), alcohol (avoiding), weather (cold),Denies triggers to sound, smells, stress, sleep changes, certain foods. Has had no periods for 5 years.Reports 1 severe headache day per week, put with daily headache 03/2021. Worst headache pain in past month was 8/10. Pushes through the pain.On 04/21/2021 with horrible headache, unable to see out of right eye (described as a rudolph splotches or covering entire vision area on right eye), then after 15 minutes it went away.Occurred while doing aerial yoga, taken home, persisted to the next day, was tested for covid and sent home. Following Friday completed testing with healthcare liaison who ordered a CT scan, headache worsened and vision with mild improvement. Went to ER that completed CT scan and it looked okay. Notes that later she got hit in head by an exercise machine she was pulling together. Tongue was numb and right side of face was numb, no facial droop. Tongue remains numb since 03/2021. Headache comes and goes. Swallowing has been more difficult. Can feel electric shock through body since 03/2021. Feels tingling and numbness 24/7 since 03/2021. Fine motor is off, tying shoes is more difficult 03/2021. Has been having memory difficulties 03/2021. Gets up 5 times a night to urinate, will notice the numbness and tingling with full bladder.Also reports constant dizziness, balance off since 02/2021. Started yoga during winter, during certain poses with head down gets dizzy and nausea afterwards with headache. Completed dilated eye exam with some scarring, unsure if related to dizziness or headaches.Stopped plaquenil (was taking for two decades) and started cellcept taking for 6 months. Started to have thyroid issues recently as well. Has stopped all supplements.Sleep has been limited, not well rested, ashwa ganda helpful at first. History depression. Reports 3 cups Caffeine daily, helps for headaches, can get withdrawal headaches.Has tried the following medications and treatments:Past Meds:Duloxetine no side effects, was used for SLE related pain, stopped over a year ago.Record Review:06/06/2021 CT cervical spine impression:No fracture or malalignment.Multilevel degenerative disc and endplate changes, most notably at C5-6 and C3-4 levels.Moderate right greater than left facet arthropathy C3-4 and C4-5 levels.06/06/2021 CT brain without contrast:Impression:No acute intracranial pathology.Variant sinus anatomy as above with no evidence of sinusitis.04/24/2021 CTA head and neck with contrast impression:Normal CTA head and neck with contrast.This note was partially generated using the [employer] voice recognition system. There may be typographical errors, spelling, or punctuation errors that were not corrected prior to committing the note to the medical record. [facility] Work Phone: 07-11-2019 History of Present illness Narrative Patient referred by Dr. Eaton history significant for SLE, hypothyroidism, and GERD here today to discuss headache. Reports one brother with history of positional headaches, told that he had white matter disease.She got first migraines starting 2 years ago that occurred going from dark to light environment, was unable to see out of right eye completely, had a horrible headache, lasted 15 minutes and passed after sitting down. Occurred again one year later lasting 15 minutes.Headaches described as right forehead, sometimes can occur in center, sometimes to protestant or back of head. Headaches associated with nausea, dizziness, photophobia/phonophobia.Triggers include light (big changes in light), alcohol (avoiding), weather (cold),Denies triggers to sound, smells, stress, sleep changes, certain foods. Has had no periods for 5 years.Reports 1 severe headache day per week, put with daily headache 03/2021. Worst headache pain in past month was 8/10. Pushes through the pain.On 04/21/2021 with horrible headache, unable to see out of right eye (described as a rudolph splotches or covering entire vision area on right eye), then after 15 minutes it went away.Occurred while doing aerial yoga, taken home, persisted to the next day, was tested for covid and sent home. Following Friday completed testing with healthcare liaison who ordered a CT scan, headache worsened and vision with mild improvement. Went to ER that completed CT scan and it looked okay. Notes that later she got hit in head by an exercise machine she was pulling together. Tongue was numb and right side of face was numb, no facial droop. Tongue remains numb since 03/2021. Headache comes and goes. Swallowing has been more difficult. Can feel electric shock through body since 03/2021. Feels tingling and numbness 24/7 since 03/2021. Fine motor is off, tying shoes is more difficult 03/2021. Has been having memory difficulties 03/2021. Gets up 5 times a night to urinate, will notice the numbness and tingling with full bladder.Also reports constant dizziness, balance off since 02/2021. Started yoga during winter, during certain poses with head down gets dizzy and nausea afterwards with headache. Completed dilated eye exam with some scarring, unsure if related to dizziness or headaches.Stopped plaquenil (was taking for two decades) and started cellcept taking for 6 months. Started to have thyroid issues recently as well. Has stopped all supplements.Sleep has been limited, not well rested, ashwa ganda helpful at first. History depression. Reports 3 cups Caffeine daily, helps for headaches, can get withdrawal headaches.Has tried the following medications and treatments:Past Meds:Duloxetine no side effects, was used for SLE related pain, stopped over a year ago.Record Review:06/06/2021 CT cervical spine impression:No fracture or malalignment.Multilevel degenerative disc and endplate changes, most notably at C5-6 and C3-4 levels.Moderate right greater than left facet arthropathy C3-4 and C4-5 levels.06/06/2021 CT brain without contrast:Impression:No acute intracranial pathology.Variant sinus anatomy as above with no evidence of sinusitis.04/24/2021 CTA head and neck with contrast impression:Normal CTA head and neck with contrast.This note was partially generated using the [employer] voice recognition system. There may be typographical errors, spelling, or punctuation errors that were not corrected prior to committing the note to the medical record. [facility] [address] Work Phone: Chief complaint Narrative - Reported F/UNeurologic Evaluation.Pt here for tests results. EJ-Anlulvxai-Frzpisnje 201 Work Phone: documented in this encounter [facility] Work Phone: History of Present illness Narrative* She has some pain in the lower back that is improving with exercise. * She has some discomfort in the back of the knees and intermittent swelling in the back of the left knee. * She has noted some intermittent hoarseness and slight soreness in the anterior neck. * She had cough and hoarseness in the past that was attributed reflux. * Symptoms at that time improved with taking Omeprazole. 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 * There is no cervical lymphadenopathy. * The knees are not swollen. There is slight tenderness in the left popliteal fossa. * The slump test is normal. * The lungs, heart, abdomen, and extremities are benign. * X-ray both knees (06/26/2020) joint space narrowing both knees. Small left knee effusion. * Laboratory (09/27/2020) WBC 4.3, hemoglobin 13.0, hematocrit 39.8, platelets 239, percent neutrophils 58.9, percent lymphocytes 29.3, CRP <2.90, BUN 11, creatinine 0.64, glucose 87, AST 16, ALT 22,alkaline phosphatase 45. * She has systemic lupus erythematosus appears to be stable. She has osteoarthritis of the knees. Sore throat may be related to gastroesophageal reflux. * She is to continue mycophenolate 250 mg twice per day. She is to continue exercising as tolerated. She is to return at the next available office appointment. She is to start Protonix 20 mg daily. [facility] [address] Work Phone: History of Present illness Narrative* She has been feeling well recently. She notes some small pruritus spots occurring periodically on her arms, anterior chest, and recently on the right malar aspect of the face. She has had some recurrent mouth sores. She is planning to have a booster vaccination for the Materna COVID-19 vaccine and her second shingles vaccine soon. * The lungs, heart, abdomen, and extremities are benign. The musculoskeletal examination did not showany active synovitis. There is a tiny pinkish macule in the right malar aspect of the face. There is a slightly scaly erythematous blanching macule on the right anterior chest in the parasternal region. * Laboratory (03/07/2021) WBC 5.0, hemoglobin 11.we will by your 7, hematocrit 36.4, MCV 93.3, MCHC 32.1, platelets 215, CRP <2.90, BUN 10, creatinine 0.56, glucose 93, albumin 4.0, calcium 9.0, AST 18, ALT 22, alkaline phosphatase 47. * She has systemic lupus erythematosus appears to be stable. She has history of gastroesophageal reflux disorder. She has hypothyroidism on thyroid hormone replacement therapy. * She is to continue mycophenolate 250 mg twice daily and pantoprazole 20 mg daily. She is to have laboratory for follow-up of mycophenolate therapy. She is to stop the mycophenolate for 2 weeks after age vaccination (COVID-19 and shingles). She is to return at the next available office appointment. [facility]uuqv[facility] [address] [facility] Work Phone: History of Present illness Narrative* She complains of a mild pain in her hands and knees. * She notes that the headache and paresthesia of the tongue and extremities improved with taking topiramate 100 mg twice daily and with starting potassium 4 mild hypokalemia. * She noted some increased musculoskeletal pain while off of the mycophenolate to get her COVID vaccinations. * The lungs, heart, abdomen, and extremities are benign. The musculoskeletal examination does not show any joint effusions. There is preserved range of motion of the upper and lower extremity joints. There is mild tenderness in the knees. The neurological examination shows muscle strength to be 4 5/5in the right hip flexor otherwise 5/5 in the lower extremities. * Laboratory (12/26/2021) WBC 4.0, hemoglobin 13.1, hematocrit 39.1, MCV 91.6, MCHC 33.5, platelets 280, CRP <2.90, total bilirubin 1.10, AST 11, ALT 17, alkaline phosphatase 57, BUN 10, creatinine 0.75, glucose 93, sodium 139, potassium 3.5, chloride 107, bicarbonate 24. * MRI brain (08/01/2021) no evidence of acute infarct or recent intracranial hemorrhage. Trace small nonspecific T2 flair white matter hyperintensities within the right subinsular region. There is small mucous retention cyst within the left sphenoid sinus. There is rightward deviation of the nasal septum. * MRI cervical spine (08/01/2021) the spinal cord is normal in caliber and signal. There is moderate right facet arthropathy at C3/C4 with bilateral uncovertebral hypertrophy, mild to moderate disc bulgeand mild bilateral neuroforaminal narrowing. There is mild left facet arthropathy right greater than left uncovertebral hypertrophy with mild disc bulge at C4/C5. There is mild to moderate right and mild left neuroforaminal narrowing. At C5/C6 there is bilateral uncovertebral hypertrophy with mild disc bulge and slight right and mild to moderate left neuroforaminal narrowing. * MRI scan lumbar spine (11/28/2021) disc space narrowing at L1/L2, L2/L3, L3/L4, L4/L5, and L5/S1. There is endplate spondylosis and right paracentral disc herniation extending into the right intervertebral neural foraminal with compression of the exiting right L3 nerve root. There is bilateral facet arthropathy. There is a grade 1 anterior listhesis of L4 on L5. * Carotid ultrasound (01/09/2022) smooth atherosclerotic homogeneous plaque in the right and left internal carotid arteries. There is intimal thickening without significant atherosclerotic plaque in the right and left external carotid arteries. The left internal carotid artery is very tortuous. * She has gastroesophageal reflux disorder, migraine headaches, systemic lupus erythematosus that appears to be stable. She has impingement on the right L3 nerve root. Suspect that the paresthesia and transient vision loss of the right eye were associated with migraines. * Plan: She is to continue mycophenolate 250 mg twice daily. She is to have laboratory for follow-up of mycophenolate therapy. She is to return at the next available office appointment. LD-Qxuaiuxgxxwm-Kqnbjzateuwv Work Phone: History of Present illness Narrative* She presents for a sooner appointment because of numbness and tingling and cold sensation in her hands. She has noted pain in her neck with difficulty swallowing. She has had significant mouth and eye dryness. The dryness is only temporary improved with drinking water or and and using eyedrops respectively. She has had recurrent mouth sores. She has had severe right-sided headache that was associated with loss of vision in the right eye as well as numbness about the lower face bilaterally occurring in 2020. The numbness has persisted but the vision returned in the right eye after 4 days. Work-up did not show any evidence of stroke or multiple sclerosis. She had EGD 11/12/2021 to evaluate herchronic cough and was found to have diffuse mild erythematous mucosa without bleeding involving thegastric body and gastric antrum. Biopsies at the gastroesophageal junction demonstrated goblet cellmetaplasia consistent with Reyez's esophagus. She was treated with Carafate and switch to Protonix twice daily. Carotid ultrasound (04/11/2021) demonstrated homogeneous small atherosclerotic plaque in the right and left internal carotid arteries. There was intimal thickening without significant atherosclerotic plaque in the right and left external carotid arteries. She has a tortuous left internal carotid artery. She notes that since the Plaquenil was discontinued, she has had worsening symptoms with fatigue, dryness, coldness of the extremities. She has noted thinning of scalp hair. She hashad some abdominal discomfort, decreased sense of taste and smell, decreased appetite with approximately 25 pound weight loss over 1 year. She was not evaluated by a vitreoretinal specialist (06/22/2022) that demonstrated pigment change in the retina that was not felt to be related to Plaquenil eye toxicity. There is felt not to be any contraindication to resuming the Plaquenil. * She has a thin body habitus. There is tenderness with palpation of the hyoid bone without any associated induration. There is preserved range of motion of the upper and lower extremity joints withoutjoint effusions. The lungs, heart, abdomen, and extremities are benign. * MRI thoracic spine (11/28/2021). * MRI lumbar spine (11/28/2021) right paracentral disc herniation at L3/L4 with compression of the right L3 nerve root. There is grade 1 anterolisthesis of L4 and L5. * Laboratory (05/31/2022) WC 3.8, hemoglobin 9.9, hematocrit 38.0, MCV 98.4, MCHC 31.3, platelets 245, vitamin B12 799, 25-hydroxy vitamin D 99.8, 1, 25 dihydroxy vitamin D 58.0, iron 93, TIBC 310, ferritin 59, folate 5.20, (05/07/2022) BUN 10, creatinine 0.66, glucose 87, sodium 138, potassium 3.6, chloride 106, bicarbonate 24, AST 13, ALT 17, alk phos 641, CRP <2.90, TSH 3.14, C3 83, C4 21, dsDNA <1. * Right L3 nerve root impingement secondary to right paracentral L3/L4 disc herniation, systemic lupus erythematosus, migraine headaches with complicated migraine, gastroesophageal reflux disorder withBarrett's esophagitis, sicca symptoms likely related to Sjogren syndrome. * She is to have laboratory for cardiolipin antibody, beta-2 glycoprotein, ASHLEY panel, ANCA, cryoglobulin, angiotensin-converting enzyme, lipase, urinalysis, spot urine protein, and CRP. Consider mucosal lip biopsy if laboratory tests are not conclusive for etiology of sicca symptoms. She is to resume hydroxychloroquine at 200 mg once per day and continue mycophenolate 2 and 50 mg twice daily for now. She is to continue with her previously scheduled follow-up appointment. [facility]wgrivnrfsk[facility] [address] [facility] Work Phone: History of Present illness Narrative* She complains of pain involving the knees, left more than right. The pain tends to affect the posterior aspect of the left knee particularly with full knee flexion or with descending stairs. She alsonotes pain in her hands has been fairly continuous. She notes feeling better since the topiramate was discontinued and she was placed on Depakote. She had upper endoscopy that is consistent with Reyez's esophagus. She has noted recurrent mouth sores. * Examination shows a confluent area of petechiae on the left buccal mucosa. She has a Torti bulbous.The risks and fingers are not swollen. There is good passive range of motion of the shoulders and hips. There is tenderness in the posterior lateral aspect of the knees, left more than right with full range of motion of both knees * Laboratory (06/28/2022) ASHLEY negative, CRP <2.90, WBC 3.9, hemoglobin 12.0, hematocrit 36.5, MCV 96.3, MCHC 32.9, platelets 219, BUN 13, creatinine 0.69, glucose 86, AST 18, ALT 20, alkaline phosphatase 45, lipase 187, urinalysis shows no protein glucose or ketones leukocyte esterases 25,, spot urine protein 8.4. * Right paracentral L3/L4 disc herniation, right L3 nerve root impingement, migraine headaches, gastroesophageal reflux disorder, Reyez's esophagus, systemic lupus erythematosus. She has pain in the shoulders and knees with negative ASHLEY question mechanical arthritis related to osteoarthritis. * She is to continue hydroxychloroquine 200 mg daily and mycophenolate 250 mg twice daily. She is to have laboratory for follow-up of mycophenolate. She is to have laboratory for HLA-B27 and HLA B52 toevaluate for psoriatic arthritis and Behcet's syndrome respectively. She is to return at the next available office appointment. FK-Cndlhqzeepzk-Uqfrzymgywih Work Phone: Chief Complaint * Follow-up visit * pain in back and knees Systemic Lupus Erythematosus follow-up visitHeadachesHeadachesNPV Numbness of tongue6 month f/u.C/O pain in low back, both knees and both hands. RW, MA6 month f/u.C/O pain in low back, both knees and both hands. RW, MA6 week f/u. C/O pain in both knees and both hands. RW, MA4 month f/u. C/O pain in both knees and both hands. RW, MA Family History No Family History Records FoundUnknown Family Member Name Dates Details Family history of chronic my eloid leukemia: Mother(V16.6, Z80.6) Status:Active Family history of cardiac di sorder: Father(V17.49, Z82.49) Status:Active Family history of hypertensi on: Father(V17.49, Z82.49) Status:Active Family history of hypothyroi dism: Father(V18.19, Z83.49) Status:Active Unknown Family Member Name Dates Details Family history of chronic my eloid leukemia: Mother(V16.6, Z80.6) Status:Active Family history of cardiac di sorder: Father(V17.49, Z82.49) Status:Active Family history of hypertensi on: Father(V17.49, Z82.49) Status:Active Family history of hypothyroi dism: Father(V18.19, Z83.49) Status:Active Unknown Family Member Name Dates Details Family history of chronic my eloid leukemia: Mother(V16.6, Z80.6) Status:Active Family history of cardiac di sorder: Father(V17.49, Z82.49) Status:Active Family history of hypertensi on: Father(V17.49, Z82.49) Status:Active Family history of hypothyroi dism: Father(V18.19, Z83.49) Status:Active Unknown Family Member Name Dates Details Family history of chronic my eloid leukemia: Mother(V16.6, Z80.6) Status:Active Family history of cardiac di sorder: Father(V17.49, Z82.49) Status:Active Family history of hypertensi on: Father(V17.49, Z82.49) Status:Active Family history of hypothyroi dism: Father(V18.19, Z83.49) Status:Active Unknown Family Member Name Dates Details Family history of chronic my eloid leukemia: Mother(V16.6, Z80.6) Status:Active Family history of cardiac di sorder: Father(V17.49, Z82.49) Status:Active Family history of hypertensi on: Father(V17.49, Z82.49) Status:Active Family history of hypothyroi dism: Father(V18.19, Z83.49) Status:Active Unknown Family Member Name Dates Details Family history of chronic my eloid leukemia: Mother(V16.6, Z80.6) Status:Active Family history of cardiac di sorder: Father(V17.49, Z82.49) Status:Active Family history of hypertensi on: Father(V17.49, Z82.49) Status:Active Family history of hypothyroi dism: Father(V18.19, Z83.49) Status:Active Unknown Family Member Name Dates Details Family history of chronic my eloid leukemia: Mother(V16.6, Z80.6) Status:Active Family history of cardiac di sorder: Father(V17.49, Z82.49) Status:Active Family history of hypertensi on: Father(V17.49, Z82.49) Status:Active Family history of hypothyroi dism: Father(V18.19, Z83.49) Status:Active Unknown Family Member Name Dates Details Family history of chronic my eloid leukemia: Mother(V16.6, Z80.6) Status:Active Family history of cardiac di sorder: Father(V17.49, Z82.49) Status:Active Family history of hypertensi on: Father(V17.49, Z82.49) Status:Active Family history of hypothyroi dism: Father(V18.19, Z83.49) Status:Active Unknown Family Member Name Dates Details Family history of chronic my eloid leukemia: Mother(V16.6, Z80.6) Status:Active Family history of cardiac di sorder: Father(V17.49, Z82.49) Status:Active Family history of hypertensi on: Father(V17.49, Z82.49) Status:Active Family history of hypothyroi dism: Father(V18.19, Z83.49) Status:Active Unknown Family Member Name Dates Details Family history of chronic my eloid leukemia: Mother(V16.6, Z80.6) Status:Active Family history of cardiac di sorder: Father(V17.49, Z82.49) Status:Active Family history of hypertensi on: Father(V17.49, Z82.49) Status:Active Family history of hypothyroi dism: Father(V18.19, Z83.49) Status:Active Unknown Family Member Name Dates Details Family history of chronic my eloid leukemia: Mother(V16.6, Z80.6) Status:Active Family history of cardiac di sorder: Father(V17.49, Z82.49) Status:Active Family history of hypertensi on: Father(V17.49, Z82.49) Status:Active Family history of hypothyroi dism: Father(V18.19, Z83.49) Status:Active Unknown Family Member Name Dates Details Family history of chronic my eloid leukemia: Mother(V16.6, Z80.6) Status:Active Family history of cardiac di sorder: Father(V17.49, Z82.49) Status:Active Family history of hypertensi on: Father(V17.49, Z82.49) Status:Active Family history of hypothyroi dism: Father(V18.19, Z83.49) Status:Active Unknown Family Member Name Dates Details Family history of chronic my eloid leukemia: Mother(V16.6, Z80.6) Status:Active Family history of cardiac di sorder: Father(V17.49, Z82.49) Status:Active Family history of hypertensi on: Father(V17.49, Z82.49) Status:Active Family history of hypothyroi dism: Father(V18.19, Z83.49) Status:Active Unknown Family Member Name Dates Details Family history of chronic my eloid leukemia: Mother(V16.6, Z80.6) Status:Active Family history of cardiac di sorder: Father(V17.49, Z82.49) Status:Active Family history of hypertensi on: Father(V17.49, Z82.49) Status:Active Family history of hypothyroi dism: Father(V18.19, Z83.49) Status:Active Unknown Family Member Name Dates Details Family history of chronic my eloid leukemia: Mother(V16.6, Z80.6) Status:Active Family history of cardiac di sorder: Father(V17.49, Z82.49) Status:Active Family history of hypertensi on: Father(V17.49, Z82.49) Status:Active Family history of hypothyroi dism: Father(V18.19, Z83.49) Status:Active Unknown Family Member Name Dates Details Family history of chronic my eloid leukemia: Mother(V16.6, Z80.6) Status:Active Family history of cardiac di sorder: Father(V17.49, Z82.49) Status:Active Family history of hypertensi on: Father(V17.49, Z82.49) Status:Active Family history of hypothyroi dism: Father(V18.19, Z83.49) Status:Active Unknown Family Member Name Dates Details Family history of chronic my eloid leukemia: Mother(V16.6, Z80.6) Status:Active Family history of cardiac di sorder: Father(V17.49, Z82.49) Status:Active Family history of hypertensi on: Father(V17.49, Z82.49) Status:Active Family history of hypothyroi dism: Father(V18.19, Z83.49) Status:Active Summary Purpose Advance Directives No Advanced Directives Records FoundNo Advanced Directives Records FoundNo Advanced Directives Records Found Additional Source Comments INFORMATION SOURCE (unrecogn ized section and content) DATE CREATED AUTHOR AUTHOR'S ORGANIZ ATION 12/11/2022 [facility] DATE CREATED AUTHOR AUTHOR'S ORGANIZ ATION 03/15/2023 [facility] Reason for Visit (unrecogniz ed section and content) Care Teams (unrecognized sec tion and content) FOR RECORDS PERTAINING TO PATIENTS WHO ARE OR HAVE BEEN ENROLLED IN A CHEMICAL DEPENDENCY/SUBSTANCEABUSE PROGRAM, SOME INFORMATION MAY BE OMITTED. This clinical summary was aggregated from multiple sources. Caution should be exercised in using it in the provision of clinical care. This summary normalizes information from multiple sources, and as a consequence, information in this document may materially change the coding, format and clinical context of patient data. In addition, data may be omitted in some cases. CLINICAL DECISIONS SHOULD BE BASED ON THE PRIMARY CLINICAL RECORDS. [facility]. provides no warranty or guarantee of the accuracy or completeness of information in this document.
[2023-04-07 11:16] LABS: ALB/GLOB Ratio 1.1 RATIO (0.9-2.4); AST(SGOT) 16 U/L (15-37); Alanine Aminotransfer ALT/SGPT 16 U/L (13-56); Albumin, Serum 3.8 g/dL (3.2-5.0); Alkaline Phosphatase 42 U/L (45-117); Anion Gap 6 (5-15); BUN 6 mg/dL (7-18); BUN/Creat Ratio 10.6 RATIO (10-20); CRP < 2.90 mg/L (0.0-3.0); Calcium,Total 9.2 mg/dL (8.5-10.1); Chloride 95 mmol/L (98-107); Creatinine, Serum 0.57 mg/dL (0.55-1.02); EST Glomerular Filtration Rate 117 mL/min (>60); Est Glom Filt Rate - Afr Amer 142 mL/min (>60); Globulin 3.4 g/dL (2.2-4.2); Glucose 90 mg/dL (74-106); Potassium 3.9 mmol/L (3.5-5.1); Protein, Total 7.2 g/dL (6.4-8.2); Sodium Level 128 mmol/L (136-145)
== END | disposition home or self-care (01) ==
LOC: LAB 09:56
PROVIDERS: PCP Internal Medicine; Referring Provider Internal Medicine Rheumatology; Visit Provider Internal Medicine Rheumatology
DX: M32.9 Systemic lupus erythematosus, unspecified (principal)
CPT/HCPCS: 36415; 80053; 85025; 86140

== ENCOUNTER → 2023-06-02 | Outpatient (CLI) | payer OTHER, SELFPAY ==
[2023-06-02 11:39] LABS: Absolute Lymphocyte Count 1.45 X10^3/uL (0.83-4.51); Absolute Neutrophil Count 3.8 X10^3/uL (2.0-7.7); Basophil# 0.05 X10^3/uL; Basophil% 0.9 % (0-1); Eosinophil# 0.05 X10^3/uL; Eosinophils% 0.9 % (0-5); Hematocrit 36.7 % (37-47); Lymphocyte # 1.45 X10^3/ul (0.83-4.51); Lymphocyte % 24.7 % (19-41); Mean Corp Hgb Conc 32.7 g/dL (32-36); Mean Corpuscular Hgb 30.7 pg (27.0-32.0); Mean Corpuscular Volume 93.9 fL (81-99); Mean Platelet Vol. 11.1 fl (6.2-12.0); Monocyte# 0.51 X10^3/uL; Monocyte% 8.7 % (0-10); NRBC Flagged by Analyzer 0 % (0-5); Neutrophil # 3.79 X10^3/uL (2.7-7.7); Neutrophil % 64.5 % (47-70); Platelet Count 253 K/mm3 (150-450); RBC Distribution Width CV 13.2 % (11.6-14.6); RBC Distribution Width SD 45.3 fl (35.1-43.9); Red Blood Count 3.91 M/mm3 (4.2-5.4); White Blood Count 5.9 K/mm3 (4.4-11.0)
[2023-06-02 12:12] LABS: ALB/GLOB Ratio 1.2 RATIO (0.9-2.4); AST(SGOT) 21 U/L (15-37); Alanine Aminotransfer ALT/SGPT 17 U/L (13-56); Albumin, Serum 4.1 g/dL (3.2-5.0); Alkaline Phosphatase 39 U/L (45-117); Anion Gap 4 (5-15); BUN 7 mg/dL (7-18); BUN/Creat Ratio 12.4 RATIO (10-20); CRP < 2.90 mg/L (0.0-3.0); Calcium,Total 9.3 mg/dL (8.5-10.1); Chloride 102 mmol/L (98-107); Creatinine, Serum 0.56 mg/dL (0.55-1.02); EST Glomerular Filtration Rate 118 mL/min (>60); Est Glom Filt Rate - Afr Amer 142 mL/min (>60); Globulin 3.4 g/dL (2.2-4.2); Glucose 98 mg/dL (74-106); Potassium 3.9 mmol/L (3.5-5.1); Protein, Total 7.5 g/dL (6.4-8.2); Sodium Level 135 mmol/L (136-145)
== END | disposition home or self-care (01) ==
LOC: LAB 10:56
PROVIDERS: PCP Internal Medicine; Referring Provider Internal Medicine Rheumatology; Visit Provider Internal Medicine Rheumatology
DX: M32.9 Systemic lupus erythematosus, unspecified (principal)
CPT/HCPCS: 36415; 80053; 85025; 86140

== ENCOUNTER → 2023-06-17 | Outpatient (CLI) | payer OTHER, SELFPAY ==
[2023-06-17 09:47] LABS: Vitamin B12 845 pg/mL (211-911); Vitamin D,25 Hydroxy 57.2 ng/mL
[2023-06-17 09:53] LABS: Thyroid Stim Hormone (TSH) 6.86 uIU/mL (0.358-3.74)
== END | disposition home or self-care (01) ==
LOC: LAB 08:16
PROVIDERS: PCP Internal Medicine; Referring Provider Internal Medicine; Visit Provider Internal Medicine
DX: E03.9 Hypothyroidism, unspecified (principal); M32.9 Systemic lupus erythematosus, unspecified; F41.9 Anxiety disorder, unspecified; F32.A Depression, unspecified
CPT/HCPCS: 36415; 82306; 82607; 84443

== ENCOUNTER → 2023-07-02 | Outpatient (CLI) | payer OTHER, SELFPAY ==
--- NOTE | 2023-07-02 13:06 | BD_ITS ---
STUDY: DUAL ENERGY X-RAY ABSORPTIOMETRY / DXA REASON FOR EXAM: Female, 57 years old. M810 TECHNIQUE: Bone Mineral Density (BMD) measurements of lumbar spine and bilateral hips were obtained. COMPARISON: None. FINDINGS: Lumbar Spine (L1-L4): g/cm2 (0.923) / T-score (-1.1) / Z-score (0.1) Findings are suggestive of osteopenia with a low fracture risk. Left Femur Total: g/cm2 (0.759) / T-score (-1.5) / Z-score (-0.7) Left Femoral Neck: g/cm2 (0.604) / T-score (-2.2) / Z-score (-1.1) Right Femur Total: g/cm2 (0.713) / T-score (-1.9) / Z-score (-1.1) Right Femoral Neck: g/cm2 (0.649) / T-score (-1.8) / Z-score (-0.7) BD/Dexa Bone Density Study IMPRESSION: The patient is considered osteopenic as outlined below according to World Gio Organization (WHO) criteria with a high fracture risk. Reference Information: The T-score is the number of standard deviations above or below the standard which is normal for young adults at their peak bone mineral density. The World Health Organization (WHO) interprets the T-scores as follows: Above -1 Normal bone density Between -1 and -2.5 Osteopenia Equal to / or below -2.5 Osteoporosis As a practical clinical guideline, osteopenia may be graded as follows: Mild -1 through -1.5 Moderate -1.6 through -2.0 Severe -2.1 through -2.4 The Z-score is the number of standard deviations above or below age-matched controls. A Z-score of less than -1.5 would be considered abnormal. References: 1. NIH Osteoporosis and Related Bone Diseases www osteo.org 2. International Society for Clinical Densitometry www iscd.org 3. National Osteoporosis Foundation www nof.org Electronically Signed: Chapo Arias MD at 19:18 EDT ,
== END | disposition home or self-care (01) ==
LOC: OPBD 12:58
PROVIDERS: PCP Internal Medicine; Referring Provider Internal Medicine Rheumatology; Visit Provider Internal Medicine Rheumatology
DX: M81.0 Age-related osteoporosis without current pathological fracture (principal)
CPT/HCPCS: 77080

== ENCOUNTER → 2023-07-16 | Outpatient (CLI) | payer OTHER, SELFPAY ==
[2023-07-18 14:09] LABS: SJOGREN'S Anti-SS-A test < 0.2 AI (0.0-0.9); SJOGREN'S Anti-SS-B test < 0.2 AI (0.0-0.9)
== END | disposition home or self-care (01) ==
LOC: LAB 14:34
PROVIDERS: PCP Internal Medicine; Referring Provider Otolaryngology; Visit Provider Otolaryngology
DX: K11.7 Disturbances of salivary secretion (principal)
CPT/HCPCS: 36415; 86235

== ENCOUNTER → 2023-07-28 | Outpatient (CLI) | payer OTHER, SELFPAY ==
[2023-07-28 10:23] LABS: Absolute Lymphocyte Count 1.08 X10^3/uL (0.83-4.51); Absolute Neutrophil Count 1.4 X10^3/uL (2.0-7.7); Basophil# 0.03 X10^3/uL; Basophil% 1.1 % (0-1); Eosinophil# 0.03 X10^3/uL; Eosinophils% 1.1 % (0-5); Hematocrit 33.1 % (37-47); Hemoglobin 11.5 g/dL (12.0-15.0); Lymphocyte # 1.08 X10^3/ul (0.83-4.51); Lymphocyte % 37.9 % (19-41); Mean Corp Hgb Conc 34.7 g/dL (32-36); Mean Corpuscular Hgb 31.9 pg (27.0-32.0); Mean Corpuscular Volume 91.9 fL (81-99); Mean Platelet Vol. 11.2 fl (6.2-12.0); Monocyte% 10.5 % (0-10); NRBC Flagged by Analyzer 0 % (0-5); Neutrophil # 1.41 X10^3/uL (2.7-7.7); Neutrophil % 49.4 % (47-70); Platelet Count 247 K/mm3 (150-450); RBC Distribution Width CV 12.7 % (11.6-14.6); RBC Distribution Width SD 42.9 fl (35.1-43.9); White Blood Count 2.9 K/mm3 (4.4-11.0)
[2023-07-28 11:48] LABS: ALB/GLOB Ratio 1.2 RATIO (0.9-2.4); AST(SGOT) 19 U/L (15-37); Alanine Aminotransfer ALT/SGPT 15 U/L (13-56); Alkaline Phosphatase 43 U/L (45-117); Anion Gap 6 (5-15); BUN 4 mg/dL (7-18); BUN/Creat Ratio 7.4 RATIO (10-20); CRP < 2.90 mg/L (0.0-3.0); Calcium,Total 9.2 mg/dL (8.5-10.1); Chloride 98 mmol/L (98-107); Creatinine, Serum 0.54 mg/dL (0.55-1.02); EST Glomerular Filtration Rate 125 mL/min (>60); Est Glom Filt Rate - Afr Amer 151 mL/min (>60); Globulin 3.3 g/dL (2.2-4.2); Glucose 87 mg/dL (74-106); Protein, Total 7.3 g/dL (6.4-8.2); Sodium Level 130 mmol/L (136-145); Thyroid Stim Hormone (TSH) 0.55 uIU/mL (0.358-3.74)
== END | disposition home or self-care (01) ==
LOC: LAB 09:28
PROVIDERS: PCP Internal Medicine; Referring Provider Internal Medicine Rheumatology; Visit Provider Internal Medicine Rheumatology
DX: M32.9 Systemic lupus erythematosus, unspecified (principal)
CPT/HCPCS: 36415; 80053; 84443; 85025; 86140

== ENCOUNTER 2023-08-14 11:38 | Day surgery (SDC) | payer OTHER, SELFPAY ==
--- NOTE | 2023-08-14 12:16 | PCM.HP.BLA ---
History and Physical Date of Admission: 08/14/23 Date of Service: 07/30/23 MR#: [id number] Acct: [id number] Name: CHASITY ARIAS Rep #: [id number] : 1965 Provider: Dr. Andra Bustos MD Age/Sex: 57/F Location: [facility] Status: Signed Intake Vital Signs 06/10/2412:23 07/29/2412:04 Height 5 ft 2 in 5 ft 2 in Weight: 134 lb BMI 24.5 BP 120/80 Blood Pressure Location Rt brachial Position Sitting Respiration 17 Pulse 73 Pulse Source Monitor Pulse Oximetry (%) 98 Oxygen Delivery Method room air Intake Visit Reasons: SELF REFERRED- GERD Chief Complaint: self referred-gerd Is patient in pain?: No Allergies No Known Allergies Allergy (Verified 07/30/23 13:07) Medications cholecalciferol (vitamin D3) 25 mcg (1,000 unit) tablet 1,000 unit PO DAILY 08/10/18 [History Confirmed 07/30/23] mycophenolate mofetil 500 mg tablet (CellCept) 250 mg PO BID lupus 03/27/22 [History Confirmed 07/30/23] ondansetron HCl 4 mg tablet 4 mg PO TID PRN nausea and vomiting #90 tabs 06/25/22 [Rx Confirmed 07/30/23] hydroxychloroquine 200 mg tablet (Plaquenil) 200 mg PO BID 09/11/22 [History Confirmed 07/30/23] albuterol sulfate 90 mcg/actuation aerosol inhaler 2 puff inhalation Q6H PRN shortness of breath or wheezing #8.5 grams 12/11/22 [Rx Confirmed 07/30/23] potassium chloride 20 mEq tablet,extended release(part/cryst) See Rx Instructions .Route .COMPLEX #90 tabs 12/11/22 [Rx Confirmed 07/30/23] duloxetine 30 mg capsule,delayed release See Rx Instructions .Route .COMPLEX #180 caps 01/01/23 [Rx Confirmed 07/30/23] folic acid 1 mg tablet 1 mg PO DAILY #30 tabs 04/22/23 [Rx Confirmed 07/30/23] rizatriptan 10 mg tablet 10 mg PO .COMPLEX migraine headache #9 tabs 04/22/23 [Rx Confirmed 07/30/23] ubrogepant 50 mg tablet (Ubrelvy) 50 mg PO DAILY PRN headache #16 tabs 04/22/23 [Rx Confirmed 07/30/23] celecoxib 100 mg capsule (Celebrex) 100 mg PO DAILY pain 06/11/23 [History Confirmed 07/30/23] divalproex 250 mg tablet,delayed release 250 mg PO DAILY 06/11/23 [History Confirmed 07/30/23] levothyroxine 88 mcg tablet See Rx Instructions .Route .COMPLEX #60 tabs 06/17/23 [Rx Confirmed 07/30/23] omeprazole 40 mg capsule,delayed release 40 mg PO QDAY #60 caps 07/21/23 [Rx Confirmed 07/30/23] sucralfate 1 gram tablet 1 g PO QACHS #56 tabs 07/21/23 [Rx Confirmed 07/30/23] mycophenolate mofetil 250 mg capsule (CellCept) 250 mg PO BID 07/30/23 [History Confirmed 07/30/23] PFSH Medical History Alcohol use Anemia Anxiety and depression Arthritis Asthma Reyez's esophagus Eye disorder Gastric reflux Hair loss Annette's thyroiditis Headache Health care maintenance Heart murmur History of echocardiogram History of irregular heartbeat Hypokalemia Hypothyroidism Injury of head and neck Lupus Migraine headache Non-smoker PONV (postoperative nausea and vomiting) Post-menopausal Seasonal affective disorder Swallowing problem Systemic lupus erythematosus Thyroid disease Vertigo Wears glasses Surgical History History of bilateral carpal tunnel release History of colonoscopy history of cystoscopy/dilation History of dilatation and curettage History of endometrial ablation History of endoscopy History of esophagogastroduodenoscopy (EGD) History of tonsillectomy and adenoidectomy History of tubal ligation Family History Father Heart disease Hypertension Thyroid disorderBrother Hypertension Thyroid disorder High cholesterol White matter diseaseMother Cancer CLLGrandmother Bone cancerGrandfather Colon cancer Social History household members: spouse Smoking Status: Never smoker second hand exposure: No alcohol intake: current alcohol intake frequency: a few times a week Alcohol type: beer and wine details: holiday substance use type: does not use caffeine: No ( ) what type of physical activity do you participate in: walking, bicycling and aerobics frequency: daily nathaniel/amish: Jehov[employer] Witness seatbelt use: always HPI HPI HPI: 57-year-old female presents due to worsening symptoms of GERD. Patient is having increased pain in her esophagus as well as needing to clear her throat often. Patient states it has gotten worse recently. Patient did get started on omeprazole 40 mg p.o. twice daily as well as Carafate last week. Patient states this had not improved. Still has some discomfort. Patient did have workup from ENT which ruled out upper etiologies. Patient's last EGD was 10/2021 it did show Reyez's at that time no dysplasia. ROS General General: Yes fatigue; No weight change, appetite, colon cancer, breast cancer or weakness HEENT HEENT: Yes difficulty swallowing and swollen glands; No eye injury, eye surgery or hoarseness Endo Endocrine: Yes thyroid disease; No diabetes mellitus, thyroid cancer, Hair loss, heat intolerance or cold intolerance Skin Skin: No rash or changing moles Musc Musculoskeletal: Yes arthritis and gout; No back problems, rheumatoid arthritis or joint pain Cardio Cardiovascular: No murmur, pacemaker, heart disease, atrial fibrillation, high blood pressure, heart attack, heart stent, palpitations, shortness of breat with exertion or chest pain Psych Psychiatric: Yes depression and anxiety; No hearing voices Resp Respiratory: No shortness of breath, No sleep apnea, No cough, No COPD, No asthma, No emphysema and No wheezing Gastro Gastrointestinal: Yes abdominal pain, Yes nausea or vomiting, No diarrhea, No constipation, No blood in stool, Yes acid reflux, No hemorrhoids, No ulcers, No gallbladder problem and No black,tarry stools Additional Details: Nausea no vomiting Gustavo Hematologic: No blood thinners, No blood disorders, No bleeding, Yes anemia and No blood clots Neuro Neurologic: No system reviewed and no additional complaints, except as documented, No as per HPI, No abnormal gait, No abnormal hearing, No abnormal movements, No abnormal speech, No behavioral changes, No burning sensations, No confusion, No convulsions, No disequilibrium, No dizziness, No localized weakness, No frequent falls, No headache(s), No lack of coordination, No loss of vision, No memory loss, Yes numbness, No other visual disturbances, No radicular pain, No restless legs, No sensory deficit, No syncope, Yes tingling, No tremor(s), No weakness and No other Exam Const General: cooperative, healthy appearing and no acute distress [facility] Head: normal to inspection Resp Effort & Inspection: normal respiratory effort Cardio Rate: regular rate GI Inspection: non-distended Palpation: soft, no guarding and nontender Skin General: no rashes or lesions noted Neuro General: patient oriented x3 Extrem General: no clubbing, cyanosis or edema Psych Affect: normal affect Assessment and Plan Assessment and Plan (1) GERD (gastroesophageal reflux disease): Status: Chronic Qualifiers: Esophagitis presence: esophagitis presence not specified Qualified Code(s): K21.9 - Gastro-esophageal reflux disease without esophagitis (2) Reyez's esophagus determined by biopsy: Status: Acute Plan While patient continue her omeprazole 40 mg p.o. twice daily as well as the Carafate. Also plan for repeat EGD. Patient is agreeable with plan. I have discussed the above with the patient. I have offered the patient esophagogastroduodenoscopy for evaluation. I have explained the risks/benefits of the procedure and described the procedure. I have discussed the risks with the patient, including but not limited to: infection, bleeding, perforation of the GI tract requiring emergency surgery, inability to complete the procedure, injury to any internal organs, complications of anesthesia, etc. - the patient understands and agrees to proceed. I have answered all the patient's questions to the patient's satisfaction and the patient has no further questions. Andra Bustos M.D. Pager: [phone] [facility] [address] [place] [address], [address] [place] [address] Office: [phone] Coding Level of Care Code Off vis,est,level 3 Diagnoses Gastroesophageal reflux disease, unspecified whether esophagitis present K21.9 Esophagitis presence: esophagitis presence not specified Reyez's esophagus determined by biopsy K22.70 07/31/23 1143 <Electronically signed by Andra Bustos MD> Date Andra Bustos MD
[2023-08-14 12:21] VITALS: BP 105/59; PULSE 75; RESP 16; TEMP 36.6; O2SAT 100; BMI 23.8
[2023-08-14] MEDS: Lactated Ringers 1,000 ML 15 ML IV (12:26)
--- NOTE | 2023-08-14 13:15 | EGD_PTH ---
PATIENT: CHASITY ARIAS LOC: EN U#:[id number] AGE/SX: 58/F ROOM: RE08/14/[address]: Dr. Andra Bustos MD : 1965 BED: DIS: 08/14/2023 SPEC #: [id number] RECD: 08/14/23 15:28 STATUS: ENEIDA RETrav #: [id number] [place]: 08/14/23 13:[address]: Andra Bustos DEPT: SURGICAL PATHOLOGY RECD BY: Amna Alaniz ENTERED: 08/15/23 07:30 SP TYPE: EGD BIOPSY JOSEPH DR: Dr. Azalia Wu MD Tissues: A - Gastric mucous membrane B - Stomach, NOS Procedures: Special Stain Group II Surgery Specimen Level IV Alcian Blue/PAS (control) HEADER OPERATION: EGD with biopsy PRE-OP DIAGNOSIS: GERD, Reyez's esophagus TISSUE SUBMITTED: A- Gastric antrum biopsy, B- Gastroesophageal junction biopsy MICROSCOPIC DIAGNOSIS A. Gastric antrum, biopsy: Mild chronic gastritis. B. Gastroesophageal junction, biopsy: Mild chronic inflammation. Focal goblet cell metaplasia consistent with Reyez's esophagus. No evidence of dysplasia. See comment. / 08/18/2023 COMMENT A. The results of immunohistochemistry for Helicobacter pylori will be reported separately ([id number]). B. Alcian blue/PAS stain with matched control supports the above diagnosis. MICROSCOPIC DESCRIPTION Slides are reviewed. GROSS DESCRIPTION A. Received in fixative is one container labeled with the patient's name and designated Gastric antrum. The specimen consists of one irregular fragment of light underwood soft tissue that measures 0.5 x 0.3 x 0.1 cm. The specimen is totally submitted in one cassette. B. Received in fixative is one container labeled with the patient's name and designated GE junction biopsy. The specimen consists of two irregular fragments of light underwood soft tissue that in aggregate measure 0.6 x 0.3 x 0.1 cm. The specimen is totally submitted in one cassette. / 08/15/2023 TC:3 CPT:01665l0
--- NOTE | 2023-08-14 13:15 | IMM_PTH ---
PATIENT: CHASITY ARIAS LOC: [facility] U#:[id number] AGE/SX: 58/F ROOM: RE08/14/[address]: Dr. Andra Bustos MD : 1965 BED: DIS: 08/14/2023 SPEC #: [id number] RECD: 08/15/23 08:05 STATUS: ENEIDA REQ #: [id number] [place]: 08/14/23 13:[address]: Andra Bustos DEPT: IMMUNOHISTOCHEMISTRY RECD BY: Napoleon Dorman ENTERED: 08/15/23 08:05 SP TYPE: IMMUNO OTHR DR: Dr. Azalia uW MD Tissues: A - Gastric mucous membrane Procedures: H Pylori (initial) PHYSICIAN & INSTITUTION [place] [id number] SPECIMEN INFORMATION: Tissue Source: A- Gastric antrum biopsy Clinical Info: GERD, Reyez's esophagus Specimen Number: [id number] CPT code: 50439 METHODOLOGY: Deparaffinized sections of prefer/formalin-fixed tissue or PAP/DQ stained slides are incubated with monoclonal/polyclonal antibodies/oligonucleotide probes. Localization is made via biotin free immunoperoxidase method. Appropriate controls are performed and reacted as expected. Results on target cell population are indicated in the following table: RESULTS: ANTIBODY / CLONE RESULT Block A H Pylori (polyclonal) negative These tests were developed and their performance characteristics determined by [facility]. They may not have been cleared or approved by the U.S. Food and Drug Administration. The FDA has determined that such clearance or approval is not necessary. The above immunohistochemical/dualISH markers are ordered and reviewed by the Pathologist. INTERPRETATION: A. Gastric antrum, biopsy: Negative for Helicobacter pylori organisms. FRANCISCO/ 08/18/23
--- NOTE | 2023-08-14 13:46 | OP.EGD_ITS ---
Patient Name: Glenys Nieto Procedure Date: 08/14/2023 1:24 PM Date of : 1965 Age: 58 Procedure: Upper GI endoscopy Indications: Heartburn, Reyez's esophagus Providers: Andra Bustos MD Referring MD: Azalia Wu MD Medicines: Monitored Anesthesia Care Patient Profile: This is a 58 year old female. Complications: No immediate complications. Procedure: Pre-Anesthesia Assessment: - Prior to the procedure, a History and Physical was performed, and patient medications and allergies were reviewed. The patient's tolerance of previous anesthesia was also reviewed. The risks and benefits of the procedure and the sedation options and risks were discussed with the patient. All questions were answered, and informed consent was obtained. Prior Anticoagulants: The patient has taken no anticoagulant or antiplatelet agents. ASA Grade Assessment: Per anesthesia. After reviewing the risks and benefits, the patient was deemed in satisfactory condition to undergo the procedure. After obtaining informed consent, the endoscope was passed under direct vision. Throughout the procedure, the patient's blood pressure, pulse, and oxygen saturations were monitored continuously. The Endoscope was introduced through the mouth, and advanced to the second part of duodenum. The upper GI endoscopy was accomplished without difficulty. The patient tolerated the procedure well. Scope In: 1:33:35 PM Scope Out: 1:39:56 PM Total Procedure Duration Time 0 hours 6 minutes 21 seconds Findings: The Z-line was variable and was found 40 cm from the incisors. Biopsies were taken with a cold forceps for histology. The examined duodenum was normal. Mildly erythematous mucosa without bleeding was found in the gastric antrum. Biopsies were taken with a cold forceps for histology. Biopsies were taken with a cold forceps for Helicobacter pylori cultures. The cardia and gastric fundus were normal on retroflexion. Impression: - Z-line variable, 40 cm from the incisors. Biopsied. - Normal examined duodenum. - Erythematous mucosa in the antrum. Biopsied. Recommendation: - Await pathology results. - Discharge patient to home (ambulatory). - Resume previous diet. - Continue present medications. - Repeat upper endoscopy for surveillance based on pathology results. Procedure Code(s): --- Professional --- 37334, Esophagogastroduodenoscopy, flexible, transoral; with biopsy, single or multiple Diagnosis Code(s): --- Professional --- K22.89, Other specified disease of esophagus K22.70, Reyez's esophagus without dysplasia K31.89, Other diseases of stomach and duodenum R12, Heartburn CPT copyright 2021 [employer]. All rights reserved. The codes documented in this report are preliminary and upon marketing planning manager review may be revised to meet current compliance requirements. MD Andra Fragoso MD 08/14/2023 1:45:51 PM This report has been signed electronically. Number of Addenda: 0 Note Initiated On: 08/14/2023 1:24 PM
--- NOTE | 2023-08-14 13:46 | OP.CCLET_ITS ---
08/14/2023 Azalia Wu MD [address] [place] [address] [place] [address] Re : Upper GI endoscopy procedure for [facility] Dear Dr. Wu This procedure was performed on July. My impressions and recommendations are as follows: Impressions : - Z-line variable, 40 cm from the incisors. Biopsied. - Normal examined duodenum. - Erythematous mucosa in the antrum. Biopsied. Recommendations : - Await pathology results. - Discharge patient to home (ambulatory). - Resume previous diet. - Continue present medications. - Repeat upper endoscopy for surveillance based on pathology results. My findings are described in the full procedure note, which is enclosed. If I can be of further assistance, please feel free to contact me at Doctor phone number(s): , Work: . Sincerely, MD Andra Fragoso MD 08/14/2023 1:45:51 PM This report has been signed electronically.
[2023-08-14 13:47] VITALS: BP 105/59; BP 107/49; PULSE 66; RESP 16; TEMP 36.3; O2SAT 98
[2023-08-14 13:50] VITALS: BP 102/64; BP 105/59; PULSE 65; RESP 16; O2SAT 100
[2023-08-14 13:55] VITALS: BP 105/59; BP 95/58; PULSE 66; RESP 16; O2SAT 100
[2023-08-14 13:59] VITALS: BP 105/59; BP 112/72; PULSE 67; RESP 18; TEMP 36.2; O2SAT 100
[2023-08-14 14:11] VITALS: BP 105/59
== END 2023-08-14 14:36 | disposition home or self-care (01) ==
LOC: EN 11:38 → AC 11:39
PROVIDERS: PCP Internal Medicine; Referring Provider Internal Medicine; Visit Provider Surgery
PROC: 0DJ08ZZ Inspection of Upper Intestinal Tract, Via Natural or Artificial Opening Endoscopic (ICD-10-PCS; CPT 43235; principal; 2023-08-14 13:10)
DX: K29.50 Unspecified chronic gastritis without bleeding (principal); K22.70 Barrett's esophagus without dysplasia; Z79.890 Hormone replacement therapy; Z79.899 Other long term (current) drug therapy; E06.3 Autoimmune thyroiditis; I10 Essential (primary) hypertension; E78.00 Pure hypercholesterolemia, unspecified; E03.9 Hypothyroidism, unspecified; K21.00 Gastro-esophageal reflux disease with esophagitis, without bleeding
CPT/HCPCS: 43239; 88305; 88313; 88342; J7120; J2405

== ENCOUNTER → 2023-09-23 | Outpatient (CLI) | payer OTHER, SELFPAY ==
[2023-09-23 09:56] LABS: ALB/GLOB Ratio 1.1 RATIO (0.9-2.4); AST(SGOT) 16 U/L (15-37); Alanine Aminotransfer ALT/SGPT 15 U/L (13-56); Albumin, Serum 3.9 g/dL (3.2-5.0); Alkaline Phosphatase 50 U/L (45-117); Anion Gap 3 (5-15); BUN 7 mg/dL (7-18); BUN/Creat Ratio 11.3 RATIO (10-20); CRP < 2.90 mg/L (0.0-3.0); Calcium,Total 9.1 mg/dL (8.5-10.1); Chloride 99 mmol/L (98-107); Creatinine, Serum 0.62 mg/dL (0.55-1.02); EST Glomerular Filtration Rate 106 mL/min (>60); Est Glom Filt Rate - Afr Amer 128 mL/min (>60); Globulin 3.5 g/dL (2.2-4.2); Glucose 93 mg/dL (74-106); Protein, Total 7.4 g/dL (6.4-8.2); Sodium Level 130 mmol/L (136-145)
[2023-09-23 10:03] LABS: Absolute Lymphocyte Count 1.36 X10^3/uL (0.83-4.51); Absolute Neutrophil Count 1.6 X10^3/uL (2.0-7.7); Basophil# 0.03 X10^3/uL; Basophil% 0.9 % (0-1); Eosinophil# 0.04 X10^3/uL; Eosinophils% 1.2 % (0-5); Hematocrit 37.3 % (37-47); Hemoglobin 12.6 g/dL (12.0-15.0); Lymphocyte # 1.36 X10^3/ul (0.83-4.51); Lymphocyte % 40.1 % (19-41); Mean Corp Hgb Conc 33.8 g/dL (32-36); Mean Corpuscular Hgb 31.3 pg (27.0-32.0); Mean Corpuscular Volume 92.8 fL (81-99); Mean Platelet Vol. 11.6 fl (6.2-12.0); Monocyte% 11.8 % (0-10); NRBC Flagged by Analyzer 0 % (0-5); Neutrophil # 1.56 X10^3/uL (2.7-7.7); Platelet Count 267 K/mm3 (150-450); RBC Distribution Width CV 12.3 % (11.6-14.6); RBC Distribution Width SD 41.7 fl (35.1-43.9); Red Blood Count 4.02 M/mm3 (4.2-5.4); White Blood Count 3.4 K/mm3 (4.4-11.0)
== END | disposition home or self-care (01) ==
LOC: LAB 08:25
PROVIDERS: PCP Internal Medicine; Referring Provider Internal Medicine Rheumatology; Visit Provider Internal Medicine Rheumatology
DX: M32.9 Systemic lupus erythematosus, unspecified (principal)
CPT/HCPCS: 36415; 80053; 85025; 86140

== ENCOUNTER → 2023-11-03 | Outpatient (CLI) | payer OTHER, SELFPAY ==
[2023-11-03 09:01] LABS: Mucous, Urine 0 SEEN /hpf (<or=2+); Red Blood Cells-Urine 0 SEEN /hpf (0-5)
[2023-11-03 09:36] LABS: Color, Urine Yellow (Yellow); Glucose, Dipstick Normal (Normal); Ketone-Dipstick Negative (Negative); Leukocyte Esterase-Dipstick 500 /ul (Negative); Nitrite-Dipstick Negative (Negative); Occult Blood-Urine Negative /ul (Negative); Protein-Dipstick Negative (Negative); Urine Bilirubin Dipstick Negative (Negative); Urine Clarity Sl. Cloudy (Clear); Urine Urobilinogen Normal (Normal)
[2023-11-03 09:40] LABS: Protein, Urine (Random) 8.9 mg/dL (<11.9)
[2023-11-03 09:47] LABS: Bacteria 1+ /hpf (None Seen); Squamous Epithelial Cells - UA 0-5 SEEN /hpf (5-10); White Blood Cells 0-5 SEEN /hpf (0-5)
== END | disposition home or self-care (01) ==
PROVIDERS: PCP Internal Medicine; Referring Provider Internal Medicine Rheumatology; Visit Provider Internal Medicine Rheumatology
DX: M35.00 Sjogren syndrome, unspecified (principal); M32.9 Systemic lupus erythematosus, unspecified
CPT/HCPCS: 81001; 84156

== ENCOUNTER → 2023-11-10 | Outpatient (CLI) | payer OTHER, SELFPAY ==
[2023-11-10 10:54] LABS: Bacteria 0 SEEN /hpf (None Seen); Mucous, Urine 0 SEEN /hpf (<or=2+)
[2023-11-10 11:02] LABS: Color, Urine Yellow (Yellow); Glucose, Dipstick Normal (Normal); Ketone-Dipstick Negative (Negative); Leukocyte Esterase-Dipstick 25 /ul (Negative); Nitrite-Dipstick Negative (Negative); Occult Blood-Urine Negative /ul (Negative); Protein-Dipstick Negative (Negative); Urine Bilirubin Dipstick Negative (Negative); Urine Clarity Clear (Clear); Urine Urobilinogen Normal (Normal)
[2023-11-10 11:38] LABS: Red Blood Cells-Urine 0-5 SEEN /hpf (0-5); Squamous Epithelial Cells - UA 0-5 SEEN /hpf (5-10); White Blood Cells 0-5 SEEN /hpf (0-5)
== END | disposition home or self-care (01) ==
LOC: LABSPEC 10:17
PROVIDERS: PCP Internal Medicine; Referring Provider Nurse Practitioner Family; Visit Provider Nurse Practitioner Family
DX: R30.0 Dysuria (principal)
CPT/HCPCS: 81001; 87086

== ENCOUNTER → 2023-11-11 | Outpatient (CLI) | payer OTHER, SELFPAY ==
[2023-11-11 10:24] LABS: Absolute Lymphocyte Count 1.21 X10^3/uL (0.83-4.51); Absolute Neutrophil Count 1.6 X10^3/uL (2.0-7.7); Basophil# 0.05 X10^3/uL; Basophil% 1.5 % (0-1); Eosinophil# 0.06 X10^3/uL; Eosinophils% 1.8 % (0-5); Hematocrit 36.3 % (37-47); Hemoglobin 11.9 g/dL (12.0-15.0); Lymphocyte # 1.21 X10^3/ul (0.83-4.51); Lymphocyte % 36.3 % (19-41); Mean Corp Hgb Conc 32.8 g/dL (32-36); Mean Corpuscular Hgb 30.1 pg (27.0-32.0); Mean Corpuscular Volume 91.7 fL (81-99); Mean Platelet Vol. 11.5 fl (6.2-12.0); Monocyte# 0.41 X10^3/uL; Monocyte% 12.3 % (0-10); NRBC Flagged by Analyzer 0 % (0-5); Neutrophil # 1.59 X10^3/uL (2.7-7.7); Neutrophil % 47.8 % (47-70); Platelet Count 251 K/mm3 (150-450); RBC Distribution Width CV 12.2 % (11.6-14.6); RBC Distribution Width SD 40.8 fl (35.1-43.9); Red Blood Count 3.96 M/mm3 (4.2-5.4); White Blood Count 3.3 K/mm3 (4.4-11.0)
[2023-11-11 11:53] LABS: ALB/GLOB Ratio 1.1 RATIO (0.9-2.4); AST(SGOT) 15 U/L (15-37); Alanine Aminotransfer ALT/SGPT 16 U/L (13-56); Albumin, Serum 3.9 g/dL (3.2-5.0); Alkaline Phosphatase 47 U/L (45-117); Anion Gap 5 (5-15); BUN 5 mg/dL (7-18); BUN/Creat Ratio 9.3 RATIO (10-20); CRP < 2.90 mg/L (0.0-3.0); Calcium,Total 9.2 mg/dL (8.5-10.1); Chloride 98 mmol/L (98-107); Creatinine, Serum 0.54 mg/dL (0.55-1.02); EST Glomerular Filtration Rate 124 mL/min (>60); Est Glom Filt Rate - Afr Amer 151 mL/min (>60); Globulin 3.5 g/dL (2.2-4.2); Glucose 85 mg/dL (74-106); Potassium 3.9 mmol/L (3.5-5.1); Protein, Total 7.4 g/dL (6.4-8.2); Sodium Level 131 mmol/L (136-145)
== END | disposition home or self-care (01) ==
LOC: LAB 09:40
PROVIDERS: PCP Internal Medicine; Referring Provider Internal Medicine Rheumatology; Visit Provider Internal Medicine Rheumatology
DX: M35.00 Sjogren syndrome, unspecified (principal); M32.9 Systemic lupus erythematosus, unspecified
CPT/HCPCS: 36415; 80053; 85025; 86140

== ENCOUNTER → 2023-12-22 | Outpatient (CLI) | payer OTHER, SELFPAY ==
[2023-12-22 13:40] LABS: Thyroid Stim Hormone (TSH) 0.138 uIU/mL (0.358-3.740)
== END | disposition home or self-care (01) ==
LOC: LAB 12:15
PROVIDERS: PCP Internal Medicine; Referring Provider Internal Medicine; Visit Provider Internal Medicine
DX: E03.9 Hypothyroidism, unspecified (principal)
CPT/HCPCS: 36415; 84443

== ENCOUNTER → 2023-12-24 | Outpatient (CLI) | payer OTHER, SELFPAY ==
--- NOTE | 2023-12-24 12:07 | BI_ITS ---
MAMMOGRAPHY - BILATERAL SCREENING REASON FOR EXAM: Female, 58 years old. Routine annual screening examination. PERTINENT HISTORY: Aunts with breast cancer. TECHNIQUE: Digital bilateral breast belinda (3D mammographic acquisition) in the CC and MLO projections. 2-D mediolateral oblique (MLO) and craniocaudad (CC) views of both breasts were obtained. CAD: Full Field Digital Mammography with Computer Added Detection was performed. COMPARISON: Comparison is made with prior study dated October 23, 2022 and December 30, 2021. FINDINGS: Breast Composition: There are scattered areas of fibroglandular density. There are no dominant masses or suspicious calcifications. No other significant abnormalities are identified. There has been no significant change since the prior study. BI/SCRN MAMM (CAD)W/BELINDA BILAT IMPRESSION: Stable bilateral screening mammogram. Yearly follow-up mammogram recommended. (A) ASSESSMENT CATEGORY: BIRADS Category 1: Negative. A letter regarding these results will be sent to the patient by the facility within 30 days. Approximately 10% of breast cancers are not detected by mammography. A normal mammogram should not delay biopsy of a clinically suspicious abnormality. [id number] Electronically Signed: Chapo Arias MD at 13:58 EDT ,
== END | disposition home or self-care (01) ==
LOC: OPBI 12:07
PROVIDERS: PCP Internal Medicine; Referring Provider Internal Medicine; Visit Provider Internal Medicine
DX: Z12.31 Encounter for screening mammogram for malignant neoplasm of breast (principal)
CPT/HCPCS: 77063; 77067

== ENCOUNTER 2024-01-05 18:42 | Emergency (ER) | payer OTHER, SELFPAY ==
[2024-01-05 18:42] VITALS: BP 95/68; PULSE 116; RESP 20; TEMP 38.8; O2SAT 98
--- NOTE | 2024-01-05 19:20 | EDS_ITS ---
HPI History of Present Illness Chief Complaint: Allergic Reaction Informant: patient and spouse/S.O. Narrative Narrative: 58-year-old female presenting to the emergency room with vomiting fever and rash. Patient states that 17 days ago she got her second dose of MMR vaccination of the right knee. She states that on Friday (15 days postvaccination) she began to feel unwell. She notes the development of a rash as well as fever and vomiting. Rash originally started in the right lower lateral abdominal wall and is now spread diffusely. She notes swelling of the lymph nodes in the left axilla. She denies any significant cough or diarrhea. She states that her throat feels tight. She states her biggest issue is that she feels dehydrated and that her urine is dark to keep any fluids or medications down. She states that she called employee health here at the hospital but [facility] who felt that this could be a reaction to the vaccination. She sees rheumatology and has lupus. She states that she went off of her CellCept and hydroxychloroquine prior to the vaccination and has not restarted it. [facility] Medical History Travel advice encounter Difficulty swallowing Nausea History of edema History of stress test Health care maintenance Swallowing problem Post-menopausal Alcohol use Lupus Injury of head and neck Hair loss Hypothyroidism Seasonal affective disorder Reyez's esophagus Hypokalemia Wears glasses Thyroid disease Arthritis Migraine headache Gastric reflux Non-smoker History of echocardiogram History of irregular heartbeat Anxiety and depression Headache Eye disorder Vertigo Heart murmur Anemia Asthma Annette's thyroiditis Systemic lupus erythematosus Home Medications ?Medication ?Instructions ?Recorded ?Last Taken ?Type cholecalciferol (vitamin D3) 25 1,000 unit PO DAILY 08/10/18 08/13/23 History mcg (1,000 unit) tablet mycophenolate mofetil 500 mg 500 mg PO QHS lupus 03/27/22 08/13/23 History tablet (CellCept) ondansetron HCl 4 mg tablet 4 mg PO TID PRN nausea and 06/25/22 Unknown Rx vomiting #90 tabs hydroxychloroquine 200 mg tablet 200 mg PO BID 09/11/22 08/13/23 History (Plaquenil) albuterol sulfate 90 mcg/actuation 2 puff inhalation Q6H PRN 09/13/23 Unknown Rx aerosol inhaler shortness of breath or wheezing #8.5 grams potassium chloride 20 mEq See Rx Instructions .Route 12/11/22 08/13/23 Rx tablet,extended release(part/cryst) .COMPLEX #90 tabs mycophenolate mofetil 250 mg 250 mg PO DAILY 07/30/23 08/12/23 History capsule (CellCept) biotin 5,000 mcg sublingual tablet 5,000 mcg sublingual DAILY 08/12/23 08/13/23 History cyanocobalamin (vitamin B-12) 1,000 mcg PO DAILY 08/12/23 08/13/23 History 1,000 mcg tablet (Vitamin B-12) divalproex 250 mg tablet,delayed 250 mg PO QHS #30 tabs 08/26/23 Unknown Rx release folic acid 1 mg tablet 1 mg PO DAILY #30 tabs 08/26/23 Unknown Rx rimegepant 75 mg disintegrating 75 mg PO DAILY PRN migraine 08/26/23 Unknown Rx tablet (Nurtec ODT) headache #16 tabs rizatriptan 10 mg tablet 10 mg PO .COMPLEX migraine 08/26/23 Unknown Rx headache #9 tabs duloxetine 30 mg capsule,delayed 30 mg PO QDAY #90 caps 12/17/23 Unknown Rx release omeprazole 40 mg capsule,delayed 40 mg PO QDAY #90 caps 12/17/23 Unknown Rx release levothyroxine 75 mcg tablet See Rx Instructions .Route 12/22/23 Unknown Rx .COMPLEX #90 tabs ondansetron 4 mg disintegrating 4 mg PO Q6H PRN PRN Nausea #15 tabs 01/06/24 Unknown Rx tablet Allergy/AdvReac Type Severity Reaction Status Date / Time No Known Allergies Allergy Verified 12/17/23 12:55 Family History Father Heart disease Hypertension Thyroid disorder Brother Hypertension Thyroid disorder High cholesterol White matter disease Mother Cancer CLL Grandmother Bone cancer Grandfather Colon cancer Surgical History History of esophagogastroduodenoscopy (EGD) History of endometrial ablation History of colonoscopy History of bilateral carpal tunnel release History of dilatation and curettage History of endoscopy History of tubal ligation History of tonsillectomy and adenoidectomy history of cystoscopy/dilation Social History household members: spouse Smoking Status: Never smoker second hand exposure: No alcohol intake: current alcohol intake frequency: a few times a week Alcohol type: beer and wine details: holiday substance use type: does not use caffeine: No ( ) what type of physical activity do you participate in: walking, bicycling and aerobics frequency: daily nathaniel/congregation: [employer] seatbelt use: always ROS ROS ED Constitutional Constitutional ED: Reports fever(s); Denies chills or weight loss Eyes Eyes: Denies change in vision or diplopia ENT ENT ED: Reports sore throat; Denies ear pain or rhinorrhea Cardiovascular Cardiovascular: Reports racing heartbeat; Denies chest pain, orthopnea or palpitations Respiratory/Chest Respiratory/Chest: Denies cough, dyspnea or orthopnea Gastrointestinal Gastrointestinal: Reports nausea and vomiting; Denies abdominal pain or diarrhea Genitourinary Genitourinary ED: Reports other Details: dark urine ; Denies dysuria, hematuria or urinary frequency Musculoskeletal Musculoskeletal: Denies arthralgias or myalgias Integumentary Reports rash; Denies abscess Neurologic Neurologic: Reports headache(s); Denies weakness Psychiatric Psychiatric: Denies anxiety, depression, suicidal ideation or suicidal thoughts Endocrine Endocrinology: Denies polydipsia, polyphagia or polyuria Allergic/Immunologic Allergic/Immunologic ED: Denies mouth swelling, tongue swelling or urticaria EXAM Physical Exam Const Vital Signs: 01/05/24 18:42 01/05/24 20:01 01/05/24 21:26 Temperature 102 F H 102.1 F H 99.5 F H Temperature Source Oral Oral Oral Pulse Rate 116 H 103 H 92 Pulse Rate [Lying] Pulse Rate [Sitting (for 1 minute prior to obtaining)] Pulse Rate [Standing (for 1 minute prior to obtaining)] Respiratory Rate 20 H 16 16 Blood Pressure 95/68 108/55 L 97/60 Blood Pressure [Lying] Blood Pressure [Sitting (for 1 minute prior to obtaining)] Blood Pressure [Standing (for 1 minute prior to obtaining)] Blood Pressure Mean 77 72 72 Blood Pressure Mean [Lying] Blood Pressure Mean [Sitting (for 1 minute prior to obtaining)] Blood Pressure Mean [Standing (for 1 minute prior to obtaining)] Pulse Ox 98 100 95 Oxygen Delivery Method Room Air Room Air 01/05/24 22:00 01/05/24 22:24 01/05/24 23:00 Temperature 99.2 F H 98.4 F Temperature Source Oral Oral Pulse Rate 95 95 Pulse Rate [Lying] 92 Pulse Rate [Sitting (for 1 minute prior to obtaining)] 91 Pulse Rate [Standing (for 1 minute prior to obtaining)] 96 Respiratory Rate 18 18 Blood Pressure 92/58 L 88/60 L Blood Pressure [Lying] 93/56 L Blood Pressure [Sitting (for 1 minute prior to obtaining)] 92/60 Blood Pressure [Standing (for 1 minute prior to obtaining)] 84/56 L Blood Pressure Mean 69 69 Blood Pressure Mean [Lying] 68 Blood Pressure Mean [Sitting (for 1 minute prior to obtaining)] 70 Blood Pressure Mean [Standing (for 1 minute prior to obtaining)] 65 Pulse Ox 97 97 Oxygen Delivery Method Room Air Room Air 01/06/24 00:00 01/06/24 00:52 Temperature 98.2 F 98.3 F Temperature Source Oral Pulse Rate 90 90 Pulse Rate [Lying] Pulse Rate [Sitting (for 1 minute prior to obtaining)] Pulse Rate [Standing (for 1 minute prior to obtaining)] Respiratory Rate 18 18 Blood Pressure 96/61 100/62 Blood Pressure [Lying] Blood Pressure [Sitting (for 1 minute prior to obtaining)] Blood Pressure [Standing (for 1 minute prior to obtaining)] Blood Pressure Mean 72 74 Blood Pressure Mean [Lying] Blood Pressure Mean [Sitting (for 1 minute prior to obtaining)] Blood Pressure Mean [Standing (for 1 minute prior to obtaining)] Pulse Ox 97 97 Oxygen Delivery Method Room Air Positive well nourished and well developed General Appearance ED: well developed HEENT Reports normocephalic, head/scalp atraumatic and moist mucous membranes HEENT Narrative: No palatal petechiae. No significant Erythema or swelling is noted Eyes PERRL and EOMs intact bilaterally Eyes Narrative: No apparent photophobia Neck no lymphadenopathy, supple and no JVD Neck Narrative: Moves neck easily without difficulty. Resp normal respiratory effort and clear to auscultation bilaterally Cardio regular rate, regular rhythm and no murmurs Rate: tachycardic GI normal to inspection, nondistended, normoactive bowel sounds and non-tender Palpation: soft Back/Spine no CVA tenderness and normal ROM Extremity normal to inspection General Extremety ED: Negative for edema General Extremity: Negative for edema Neuro oriented x3 and CN's II-XII intact bilaterally Sensorium / Orientation: alert Motor Exam: strength 5/5 throughout Psych mental status grossly normal Mood & Affect: Negative for depressed or tearful Skin no wounds Skin Narrative: Diffusely there is a macular papular rash on the body including trunk and extremities. It appears in discrete lesions. Most are slightly palpable. It blanches. I do not see petechiae. No excoriation. MDM MDM MDM Narrative Medical decision making narrative: Differential diagnosis includes but not limited to dehydration and electrolyte abnormalities sepsis pneumonia viral syndrome vaccination reaction UTI White count 7.5 hemoglobin 11.4 platelet count is 192 coags are normal sodium 131 which is consistent with her history otherwise BMP lactic acid and LFTs are normal. Urinalysis with no overt infection. Urine is concentrated with ketones. Cultures were obtained. My independent interpretation of the chest x- ray is no acute process. COVID and influenza swabs were negative. Patient received a liter of IV fluids as well as Zofran. She also received Tylenol. This is work to reduce her fever. Patient's blood pressure has been low. Means have been around 65 with systolics around 90. She states she is not typically this low. Patient still feels rather lightheaded particular with movement. I am going to give her a second liter of fluid and we will reassess. If she is doing better she will be discharged home with Zofran. If she is not tolerating fluids or continues to have low blood pressure we will discuss with hospitalist regarding admission. After the second liter her blood pressure is improved. She is feeling better. She is tolerating p.o. fluids. I will write for have Zofran at home. I will give her another dose of Zofran through the IV while we wait for the prescription to come up from pharmacy. I would encourage oral hydration and fever control. Follow-up with primary care 2 days History & Record Review Discussion w/independent historian: Patient and Significant other Lab Data Attestation: I reviewed the patient's lab results. Labs: Laboratory Results - last 24 hr 01/05/24 01/05/24 19:34 21:24 WBC 7.5 RBC 3.79 L Hgb 11.4 L Hct 34.5 L MCV 91.0 MCH 30.1 MCHC 33.0 RDW Std Deviation 45.0 H RDW Coeff of Ludwig 13.5 Plt Count 192 MPV 11.9 Immature Gran % (Auto) 0.400 Neut % (Auto) 92.2 H Lymph % (Auto) 2.0 L Hettinger % (Auto) 2.4 Eos % (Auto) 2.9 Baso % (Auto) 0.1 Absolute Neuts (auto) 6.9 Absolute Lymphs (auto) 0.15 L Nucleated RBC % 0 PT 14.9 INR 1.2 APTT 31.7 Sodium 131 L Potassium 3.6 Chloride 97 L Carbon Dioxide 25.0 Anion Gap 9 BUN 9 Creatinine 0.57 Est GFR (MDRD) Af Amer 140 Est GFR (MDRD) Non-Af 116 BUN/Creatinine Ratio 15.8 Glucose 103 Lactic Acid 1.1 Calcium 8.7 Total Bilirubin 0.70 Direct Bilirubin 0.20 AST 21 ALT 19 Alkaline Phosphatase 60 Total Protein 6.9 Albumin 3.2 Globulin 3.7 Urine Color Annie Urine Clarity Sl. Cloudy Urine pH 6.0 Ur Specific [place] 1.020 Urine Protein 30 H Urine Glucose (UA) Normal Urine Ketones 150 A* Urine Occult Blood 25 H Urine Nitrite Negative Urine Bilirubin Negative Urine Urobilinogen 1 H Ur Leukocyte Esterase Negative Urine RBC 0-5 SEEN Urine WBC 0-5 SEEN Ur Squamous Epith Cells 0-5 SEEN Urine Bacteria 1+ Urine Mucus 0 SEEN Radiography Diagnostic Testing: Clinical Impression(s) from Imaging Studies Chest X-Ray 01/05/24 20:30 IMPRESSION: No radiographic evidence of acute cardiopulmonary disease. Electronically Signed: Deana Garcia MD at 20:52 EDT , Discharge Plan Triage Chief Complaint: Allergic Reaction ED Provider: Chang Barba Dx/Rx/DC Orders Clinical Impression: Acute febrile illness, Rash, Vomiting, Acute dehydration Instructions: ED Dehydration (Adult) Prescriptions: New ondansetron 4 mg tablet,disintegrating 4 mg PO Q6H PRN PRN (Reason: Nausea) Qty: 15 0RF No Action mycophenolate mofetil [CellCept] 500 mg tablet 500 mg PO QHS ondansetron HCl 4 mg tablet 4 mg PO TID PRN (Reason: nausea and vomiting) Qty: 90 4RF albuterol sulfate 90 mcg/actuation HFA aerosol inhaler 2 puff inhalation Q6H PRN (Reason: shortness of breath or wheezing) Qty: 8.5 2RF Patient Comments: haven't needed in months potassium chloride 20 mEq tablet,ER particles/crystals See Rx Instructions .ROUTE .COMPLEX Qty: 90 3RF Dose Instruction: TAKE 1 TABLET BY MOUTH DAY Rx Instructions: TAKE 1 TABLET BY MOUTH DAY hydroxychloroquine [Plaquenil] 200 mg tablet 200 mg PO BID rizatriptan 10 mg tablet 10 mg PO .COMPLEX Qty: 9 8RF Rx Instructions: Take 1 tablet orally every two hours as needed for headache up to three tablets per day folic acid 1 mg tablet 1 mg PO DAILY Qty: 30 8RF divalproex 250 mg tablet,delayed release (DR/EC) 250 mg PO QHS Qty: 30 8RF Nurtec ODT 75 mg tablet,disintegrating 75 mg PO DAILY PRN (Reason: migraine headache) Qty: 16 9RF omeprazole 40 mg capsule,delayed release(DR/EC) 40 mg PO QDAY Qty: 90 1RF Rx Instructions: swallow whole; do not crush, chew, dissolve, cut, break duloxetine 30 mg capsule,delayed release(DR/EC) 30 mg PO QDAY Qty: 90 1RF Rx Instructions: IN AM pt changed to daily due to being over sedated mycophenolate mofetil [CellCept] 250 mg capsule 250 mg PO DAILY Rx Instructions: 1 in am, 2 in pm cholecalciferol (vitamin D3) 1,000 UNIT tablet 1,000 unit PO DAILY biotin 5,000 mcg tablet, sublingual 5,000 mcg sublingual DAILY cyanocobalamin (vitamin B-12) [Vitamin B-12] 1,000 mcg tablet 1,000 mcg PO DAILY levothyroxine 75 mcg tablet See Rx Instructions .ROUTE .COMPLEX Qty: 90 2RF Dose Instruction: TAKE 1 TABLET BY MOUTH ONCE DAILY Rx Instructions: TAKE 1 TABLET BY MOUTH ONCE DAILY Primary Care Provider: Azalia Wu Referrals: Azalia Wu MD [Primary Care Provider] - 2 Days Print Language: Luxembourgish Disposition Disposition: Home, Self Care
[2024-01-05] MEDS: 0.9% Normal Saline (1000mL) 1,000 ML 1000 ML IV (19:40)
[2024-01-05] MEDS: Acetaminophen 500 MG Tablet 1000 MG PO (19:40)
[2024-01-05] MEDS: Ondansetron 4 MG/2 ML Vial IV (19:40)
[2024-01-05 19:52] LABS: Absolute Lymphocyte Count 0.15 X10^3/uL (0.83-4.51); Absolute Neutrophil Count 6.9 X10^3/uL (2.0-7.7); Basophil# 0.01 X10^3/uL; Basophil% 0.1 % (0-1); Eosinophil# 0.22 X10^3/uL; Eosinophils% 2.9 % (0-5); Hematocrit 34.5 % (37-47); Hemoglobin 11.4 g/dL (12.0-15.0); Lymphocyte # 0.15 X10^3/ul (0.83-4.51); Mean Corpuscular Hgb 30.1 pg (27.0-32.0); Mean Platelet Vol. 11.9 fl (6.2-12.0); Monocyte# 0.18 X10^3/uL; Monocyte% 2.4 % (0-10); NRBC Flagged by Analyzer 0 % (0-5); Neutrophil # 6.93 X10^3/uL (2.7-7.7); Neutrophil % 92.2 % (47-70); POSITIVE DIFFERENTIAL YES; Platelet Count 192 K/mm3 (150-450); RBC Distribution Width CV 13.5 % (11.6-14.6); Red Blood Count 3.79 M/mm3 (4.2-5.4); White Blood Count 7.5 K/mm3 (4.4-11.0)
[2024-01-05 20:01] VITALS: BP 108/55; PULSE 103; RESP 16; TEMP 38.9; O2SAT 100
[2024-01-05 20:03] LABS: International Normalized Ratio 1.2; Prothrombin Time (Protime)PT. 14.9 SECONDS (11.7-14.9)
[2024-01-05 20:04] LABS: Partial Thromboplast Time 31.7 Seconds (24.1-36.2)
[2024-01-05 20:13] LABS: AST(SGOT) 21 U/L (15-37); Alanine Aminotransfer ALT/SGPT 19 U/L (13-56); Albumin, Serum 3.2 g/dL (3.2-5.0); Alkaline Phosphatase 60 U/L (45-117); Anion Gap 9 (5-15); BUN 9 mg/dL (7-18); BUN/Creat Ratio 15.8 RATIO (10-20); Calcium,Total 8.7 mg/dL (8.5-10.1); Chloride 97 mmol/L (98-107); Creatinine, Serum 0.57 mg/dL (0.55-1.02); EST Glomerular Filtration Rate 116 mL/min (>60); Est Glom Filt Rate - Afr Amer 140 mL/min (>60); Globulin 3.7 g/dL (2.2-4.2); Glucose 103 mg/dL (74-106); Potassium 3.6 mmol/L (3.5-5.1); Protein, Total 6.9 g/dL (6.4-8.2); Sodium Level 131 mmol/L (136-145)
[2024-01-05 20:28] LABS: Lactic Acid 1.1 mmol/L (0.4-1.9)
--- NOTE | 2024-01-05 20:30 | RAD_ITS ---
INDICATION: fever EXAMINATION/TECHNIQUE: X-RAY - XR Chest 1 View COMPARISON: September 05, 2021 FINDINGS: LINES/DEVICES: None. LUNGS: No consolidation, edema or effusion. No pneumothorax. MEDIASTINUM AND CARDIOVASCULAR STRUCTURES: Cardiac silhouette not enlarged. Central airways and mediastinal contour are unremarkable. BONES AND SOFT TISSUES: Unremarkable. RAD/Chest 1 View (Portable) IMPRESSION: No radiographic evidence of acute cardiopulmonary disease. Electronically Signed: Deana Garcia MD at 20:52 EDT ,
[2024-01-05 21:26] VITALS: BP 97/60; PULSE 92; RESP 16; TEMP 37.5; O2SAT 95
[2024-01-05 21:29] LABS: Mucous, Urine 0 SEEN /hpf (<or=2+)
[2024-01-05 21:31] LABS: Color, Urine Amber (Yellow); Glucose, Dipstick Normal (Normal); Leukocyte Esterase-Dipstick Negative /ul (Negative); Nitrite-Dipstick Negative (Negative); Occult Blood-Urine 25 /ul (Negative); Protein-Dipstick 30 mg/dl (Negative); Urine Bilirubin Dipstick Negative (Negative); Urine Clarity Sl. Cloudy (Clear); Urine Urobilinogen 1 mg/dl (Normal)
[2024-01-05 21:35] LABS: Ketone-Dipstick 150 mg/dl (Negative)
[2024-01-05 21:46] LABS: Bacteria 1+ /hpf (None Seen); Red Blood Cells-Urine 0-5 SEEN /hpf (0-5); Squamous Epithelial Cells - UA 0-5 SEEN /hpf (5-10); White Blood Cells 0-5 SEEN /hpf (0-5)
[2024-01-05 22:00] VITALS: BP 92/58; PULSE 95; RESP 18; TEMP 37.3; O2SAT 97
[2024-01-05 22:24] VITALS: BP 84/56; BP 92/60; BP 93/56; PULSE 91; PULSE 92; PULSE 96
[2024-01-05 23:00] VITALS: BP 88/60; PULSE 95; RESP 18; TEMP 36.9; O2SAT 97
[2024-01-05] MEDS: 0.9% Normal Saline (1000mL) 1,000 ML 999 ML IV (23:43)
[2024-01-06] VITALS: BP 96/61; PULSE 90; RESP 18; TEMP 36.8; O2SAT 97
[2024-01-06 00:52] VITALS: BP 100/62; PULSE 90; RESP 18; TEMP 36.8; O2SAT 97
[2024-01-06] MEDS: Ondansetron ODT 4 MG Tablet PO (00:57)
== END 2024-01-06 01:04 | disposition home or self-care (01) ==
PROVIDERS: Emergency Provider Emergency Medicine; PCP Internal Medicine; Visit Provider Emergency Medicine
DX: R50.9 Fever, unspecified (principal); E86.0 Dehydration; R11.10 Vomiting, unspecified; R21 Rash and other nonspecific skin eruption
CPT/HCPCS: 71045; 80048; 80076; 81001; 83605; 85025; 85610; 85730; 87040; 87631; 96361; 96374; 96376; 99285; J7030; A4216; J2405

== ENCOUNTER 2024-02-03 08:46 | Outpatient (RCR) | payer OTHER, SELFPAY ==
[2024-02-03 09:43] LABS: Absolute Neutrophil Count 1.6 X10^3/uL (2.0-7.7); Basophil# 0.07 X10^3/uL; Basophil% 2.1 % (0-1); Eosinophil# 0.19 X10^3/uL; Eosinophils% 5.8 % (0-5); Hematocrit 36.9 % (37-47); Hemoglobin 11.8 g/dL (12.0-15.0); Lymphocyte % 36.5 % (19-41); Mean Corpuscular Volume 93.9 fL (81-99); Mean Platelet Vol. 11.5 fl (6.2-12.0); Monocyte# 0.25 X10^3/uL; Monocyte% 7.6 % (0-10); NRBC Flagged by Analyzer 0 % (0-5); Neutrophil # 1.57 X10^3/uL (2.7-7.7); Neutrophil % 47.7 % (47-70); Platelet Count 262 K/mm3 (150-450); RBC Distribution Width CV 14.4 % (11.6-14.6); RBC Distribution Width SD 49.6 fl (35.1-43.9); Red Blood Count 3.93 M/mm3 (4.2-5.4); White Blood Count 3.3 K/mm3 (4.4-11.0)
[2024-02-03 10:48] LABS: AST(SGOT) 15 U/L (15-37); Alanine Aminotransfer ALT/SGPT 18 U/L (13-56); Albumin, Serum 3.9 g/dL (3.2-5.0); Alkaline Phosphatase 71 U/L (45-117); Anion Gap 7 (5-15); BUN 6 mg/dL (7-18); BUN/Creat Ratio 9.9 RATIO (10-20); CRP < 2.90 mg/L (0.0-3.0); Calcium,Total 9.2 mg/dL (8.5-10.1); Chloride 104 mmol/L (98-107); EST Glomerular Filtration Rate 109 mL/min (>60); Est Glom Filt Rate - Afr Amer 131 mL/min (>60); Globulin 3.9 g/dL (2.2-4.2); Glucose 87 mg/dL (74-106); Protein, Total 7.8 g/dL (6.4-8.2); Sodium Level 138 mmol/L (136-145); Thyroid Stim Hormone (TSH) 0.748 uIU/mL (0.358-3.740)
== END 2024-02-28 18:00 | disposition home or self-care (01) ==
LOC: LAB 08:46
PROVIDERS: PCP Internal Medicine; Referring Provider Internal Medicine Rheumatology; Visit Provider Internal Medicine Rheumatology
DX: E03.9 Hypothyroidism, unspecified (principal); M35.00 Sjogren syndrome, unspecified; M32.9 Systemic lupus erythematosus, unspecified
CPT/HCPCS: 36415; 80053; 84443; 85025; 86140

== ENCOUNTER 2024-04-02 12:01 | Outpatient (RCR) | payer OTHER, SELFPAY ==
[2024-04-02 13:20] LABS: Absolute Lymphocyte Count 1.16 X10^3/uL (0.83-4.51); Absolute Neutrophil Count 2.9 X10^3/uL (2.0-7.7); Basophil# 0.04 X10^3/uL; Basophil% 0.9 % (0-1); Eosinophil# 0.06 X10^3/uL; Eosinophils% 1.3 % (0-5); Hematocrit 35.4 % (37-47); Hemoglobin 11.8 g/dL (12.0-15.0); Lymphocyte # 1.16 X10^3/ul (0.83-4.51); Lymphocyte % 24.8 % (19-41); Mean Corp Hgb Conc 33.3 g/dL (32-36); Mean Corpuscular Hgb 29.3 pg (27.0-32.0); Mean Corpuscular Volume 87.8 fL (81-99); Mean Platelet Vol. 11.6 fl (6.2-12.0); Monocyte# 0.51 X10^3/uL; Monocyte% 10.9 % (0-10); NRBC Flagged by Analyzer 0 % (0-5); Neutrophil # 2.85 X10^3/uL (2.7-7.7); Neutrophil % 60.8 % (47-70); Platelet Count 250 K/mm3 (150-450); RBC Distribution Width CV 13.1 % (11.6-14.6); RBC Distribution Width SD 42.2 fl (35.1-43.9); Red Blood Count 4.03 M/mm3 (4.2-5.4); White Blood Count 4.7 K/mm3 (4.4-11.0)
[2024-04-02 14:05] LABS: ALB/GLOB Ratio 0.9 RATIO (0.9-2.4); AST(SGOT) 25 U/L (15-37); Alanine Aminotransfer ALT/SGPT 21 U/L (13-56); Albumin, Serum 3.7 g/dL (3.2-5.0); Alkaline Phosphatase 60 U/L (45-117); Anion Gap 8 (5-15); BUN 7 mg/dL (7-18); BUN/Creat Ratio 11.2 RATIO (10-20); Calcium,Total 9.1 mg/dL (8.5-10.1); Chloride 101 mmol/L (98-107); Creatinine, Serum 0.62 mg/dL (0.55-1.02); EST Glomerular Filtration Rate 104 mL/min (>60); Est Glom Filt Rate - Afr Amer 126 mL/min (>60); Glucose 111 mg/dL (74-106); Potassium 3.2 mmol/L (3.5-5.1); Protein, Total 7.7 g/dL (6.4-8.2); Sodium Level 133 mmol/L (136-145)
== END 2024-04-02 18:00 | disposition home or self-care (01) ==
LOC: LAB 12:01
PROVIDERS: PCP Internal Medicine; Referring Provider Internal Medicine Rheumatology; Visit Provider Internal Medicine Rheumatology
DX: M35.00 Sjogren syndrome, unspecified (principal); M32.9 Systemic lupus erythematosus, unspecified

== ENCOUNTER → 2024-04-29 | Outpatient (CLI) | payer OTHER, SELFPAY ==
[2024-04-29 09:57] LABS: Bacteria 0 SEEN /hpf (None Seen); Mucous, Urine 0 SEEN /hpf (<or=2+); Red Blood Cells-Urine 0 SEEN /hpf (0-5); Squamous Epithelial Cells - UA 0 SEEN /hpf (5-10)
[2024-04-29 10:35] LABS: Absolute Lymphocyte Count 1.69 X10^3/uL (0.83-4.51); Absolute Neutrophil Count 1.6 X10^3/uL (2.0-7.7); Basophil# 0.07 X10^3/uL; Basophil% 1.8 % (0-1); Eosinophil# 0.07 X10^3/uL; Eosinophils% 1.8 % (0-5); Lymphocyte # 1.69 X10^3/ul (0.83-4.51); Lymphocyte % 44.5 % (19-41); Mean Corp Hgb Conc 31.6 g/dL (32-36); Mean Corpuscular Hgb 29.2 pg (27.0-32.0); Mean Corpuscular Volume 92.5 fL (81-99); Mean Platelet Vol. 11.6 fl (6.2-12.0); Monocyte% 10.5 % (0-10); NRBC Flagged by Analyzer 0 % (0-5); Neutrophil # 1.57 X10^3/uL (2.7-7.7); Neutrophil % 41.4 % (47-70); Platelet Count 288 K/mm3 (150-450); RBC Distribution Width CV 13.6 % (11.6-14.6); RBC Distribution Width SD 46.1 fl (35.1-43.9); Red Blood Count 4.11 M/mm3 (4.2-5.4); White Blood Count 3.8 K/mm3 (4.4-11.0)
[2024-04-29 10:55] LABS: Color, Urine Yellow (Yellow); Glucose, Dipstick Normal (Normal); Ketone-Dipstick Negative (Negative); Leukocyte Esterase-Dipstick 25 /ul (Negative); Nitrite-Dipstick Negative (Negative); Occult Blood-Urine Negative /ul (Negative); Protein-Dipstick Negative (Negative); Urine Bilirubin Dipstick Negative (Negative); Urine Clarity Clear (Clear); Urine Urobilinogen Normal (Normal)
[2024-04-29 11:17] LABS: White Blood Cells 0-5 SEEN /hpf (0-5)
[2024-04-29 11:20] LABS: CRP < 2.90 mg/L (0.0-3.0)
[2024-04-29 13:19] LABS: Anion Gap 9 (5-15); BUN 5 mg/dL (7-18); BUN/Creat Ratio 7.4 RATIO (10-20); Calcium,Total 9.7 mg/dL (8.5-10.1); Chloride 101 mmol/L (98-107); Creatinine, Serum 0.67 mg/dL (0.55-1.02); EST Glomerular Filtration Rate 96 mL/min (>60); Est Glom Filt Rate - Afr Amer 116 mL/min (>60); Glucose 90 mg/dL (74-106); Potassium 3.7 mmol/L (3.5-5.1); Sodium Level 136 mmol/L (136-145)
[2024-04-29 13:44] LABS: Hemoglobin A1c 5.3 % (3.8-5.6)
== END | disposition home or self-care (01) ==
LOC: LAB 09:52
PROVIDERS: PCP Internal Medicine; Referring Provider Internal Medicine Rheumatology; Visit Provider Internal Medicine Rheumatology
DX: R73.9 Hyperglycemia, unspecified (principal); M32.9 Systemic lupus erythematosus, unspecified
CPT/HCPCS: 36415; 80048; 81001; 83036; 85025; 86140

== ENCOUNTER → 2024-05-04 | Outpatient (CLI) | payer OTHER, SELFPAY ==
--- NOTE | 2024-05-04 13:12 | RAD_ITS ---
EXAM: XR Right Foot Complete, 3 or More Views CLINICAL INDICATION: TECHNIQUE: Frontal, lateral and oblique views of the right foot. COMPARISON: No relevant prior studies available. FINDINGS: BONES/JOINTS: Apparent widening of the Lisfranc joint, may be secondary to projection. Correlation with point tenderness is recommended. No acute fracture. No dislocation. SOFT TISSUES: Unremarkable. No radiopaque foreign body. RAD/Foot min 3 Views IMPRESSION: Apparent widening of the Lisfranc joint, may be secondary to projection. Corre lation with point tenderness is recommended. Reading Location: [facility]
== END | disposition home or self-care (01) ==
LOC: RAD 13:08
PROVIDERS: PCP Internal Medicine; Referring Provider Podiatrist; Visit Provider Podiatrist
DX: M13.879 Other specified arthritis, unspecified ankle and foot (principal)
CPT/HCPCS: 73630

== ENCOUNTER 2024-06-11 08:04 | Outpatient (RCR) | payer OTHER, SELFPAY ==
[2024-06-11 08:37] LABS: Absolute Lymphocyte Count 1.69 X10^3/uL (0.83-4.51); Absolute Neutrophil Count 1.5 X10^3/uL (2.0-7.7); Basophil# 0.04 X10^3/uL; Basophil% 1.1 % (0-1); Eosinophil# 0.09 X10^3/uL; Eosinophils% 2.4 % (0-5); Hemoglobin 11.5 g/dL (12.0-15.0); Lymphocyte # 1.69 X10^3/ul (0.83-4.51); Lymphocyte % 45.8 % (19-41); Mean Corp Hgb Conc 32.9 g/dL (32-36); Mean Corpuscular Hgb 30.7 pg (27.0-32.0); Mean Corpuscular Volume 93.3 fL (81-99); Mean Platelet Vol. 11.5 fl (6.2-12.0); Monocyte% 10.8 % (0-10); NRBC Flagged by Analyzer 0 % (0-5); Neutrophil # 1.46 X10^3/uL (2.7-7.7); Neutrophil % 39.6 % (47-70); Platelet Count 242 K/mm3 (150-450); RBC Distribution Width CV 13.5 % (11.6-14.6); RBC Distribution Width SD 46.1 fl (35.1-43.9); Red Blood Count 3.75 M/mm3 (4.2-5.4); White Blood Count 3.7 K/mm3 (4.4-11.0)
[2024-06-11 09:53] LABS: ALB/GLOB Ratio 1.6 RATIO (0.9-2.4); AST(SGOT) 24 U/L (<=31); Alanine Aminotransfer ALT/SGPT 14 U/L (<=34); Albumin, Serum 4.3 g/dL (3.5-5.0); Alkaline Phosphatase 54 U/L (35-104); Anion Gap 12 (5-15); BUN 6 mg/dL (4-19); BUN/Creat Ratio 9.3 RATIO (10-20); Calcium,Total 9.4 mg/dL (7.6-11.0); Carbon Dioxide 24.9 mmol/L (21.0-32.0); Chloride 103 mmol/L (98-108); Creatinine, Serum 0.62 mg/dL (0.70-1.20); EST Glomerular Filtration Rate 104 (>60); Globulin 2.6 g/dL (2.2-4.2); Glucose 88 mg/dL (70-99); Potassium 4.3 mmol/L (3.3-5.1); Sodium Level 139 mmol/L (133-145); Total Bilirubin 0.61 mg/dL (0.00-1.30)
[2024-06-11 09:58] LABS: CRP < 3.00 mg/L (0.0-3.0)
== END 2024-06-11 18:00 | disposition home or self-care (01) ==
LOC: LAB 08:04
PROVIDERS: PCP Internal Medicine; Referring Provider Internal Medicine Rheumatology; Visit Provider Internal Medicine Rheumatology
DX: M35.00 Sjogren syndrome, unspecified (principal); M32.9 Systemic lupus erythematosus, unspecified
CPT/HCPCS: 36415; 80053; 85025; 86140

== ENCOUNTER → 2024-08-18 | Outpatient (CLI) | payer BC, SELFPAY ==
[2024-08-19 11:15] LABS: Vitamin D,25 Hydroxy 51.8 ng/mL (30-100)
== END | disposition home or self-care (01) ==
LOC: LAB 13:19
PROVIDERS: PCP Family Medicine; Referring Provider Family Medicine; Visit Provider Family Medicine
DX: E06.3 Autoimmune thyroiditis (principal); E55.9 Vitamin D deficiency, unspecified
CPT/HCPCS: 36415; 82306; 84439; 84443

== ENCOUNTER 2024-09-02 15:20 | Outpatient (RCR) | payer BC, SELFPAY ==
[2024-09-02 16:08] LABS: Absolute Neutrophil Count 2.8 X10^3/uL (2.0-7.7); Basophil# 0.05 X10^3/uL; Eosinophil# 0.06 X10^3/uL; Eosinophils% 1.2 % (0-5); Hematocrit 32.3 % (37-47); Hemoglobin 10.9 g/dL (12.0-15.0); Lymphocyte % 32.1 % (19-41); Mean Corp Hgb Conc 33.7 g/dL (32-36); Mean Corpuscular Hgb 30.6 pg (27.0-32.0); Mean Corpuscular Volume 90.7 fL (81-99); Mean Platelet Vol. 12.2 fl (6.2-12.0); Monocyte# 0.45 X10^3/uL; NRBC Flagged by Analyzer 0 % (0-5); Neutrophil # 2.81 X10^3/uL (2.7-7.7); Neutrophil % 56.5 % (47-70); Platelet Count 212 K/mm3 (150-450); RBC Distribution Width SD 42.9 fl (35.1-43.9); Red Blood Count 3.56 M/mm3 (4.2-5.4)
[2024-09-02 16:47] LABS: AST(SGOT) 21 U/L (<=31); Alanine Aminotransfer ALT/SGPT 11 U/L (<=34); Albumin, Serum 4.1 g/dL (3.5-5.0); Alkaline Phosphatase 43 U/L (35-104); Anion Gap 11 (5-15); BUN 8 mg/dL (4-19); BUN/Creat Ratio 13.1 RATIO (10-20); CRP < 3.00 mg/L (0.0-3.0); Calcium,Total 8.6 mg/dL (7.6-11.0); Carbon Dioxide 25.1 mmol/L (21.0-32.0); Chloride 96 mmol/L (98-108); Creatinine, Serum 0.63 mg/dL (0.70-1.20); EST Glomerular Filtration Rate 103 (>60); Globulin 1.4 g/dL (2.2-4.2); Potassium 4.1 mmol/L (3.3-5.1); Protein, Total 5.5 g/dL (5.9-8.4); Sodium Level 132 mmol/L (133-145); Total Bilirubin 0.55 mg/dL (0.00-1.30)
[2024-09-02 16:53] LABS: Glucose 93 mg/dL (70-99)
== END 2024-09-02 18:00 | disposition home or self-care (01) ==
LOC: LAB 15:20
PROVIDERS: PCP Family Medicine; Referring Provider Internal Medicine Rheumatology; Visit Provider Internal Medicine Rheumatology
DX: M35.00 Sjogren syndrome, unspecified (principal); M32.9 Systemic lupus erythematosus, unspecified
CPT/HCPCS: 36415; 80053; 85025; 86140

== ENCOUNTER → 2024-09-20 | Outpatient (CLI) | payer BC, SELFPAY ==
--- NOTE | 2024-09-20 17:22 | RAD_ITS ---
PROCEDURE: CHEST PA AND LATERAL 09/20/2024 REASON FOR EXAM: COUGH TECHNIQUE: CHEST PA AND LATERAL COMPARISON: Chest radiographs on 01/05/2024 and 09/05/2021 FINDINGS: Hardware: None Mediastinum: The mediastinal contour is stable. Lungs: No focal consolidation or pleural effusion. Bones: Degenerative changes are identified within the thoracic spine. RAD/Chest PA and Lateral IMPRESSION: No acute cardiopulmonary abnormality. Reading Location: [place]
== END | disposition home or self-care (01) ==
LOC: MTRAD 17:21
PROVIDERS: PCP Family Medicine; Referring Provider Physician Assistant; Visit Provider Physician Assistant
DX: R05.9 Cough, unspecified (principal)
CPT/HCPCS: 71046

== ENCOUNTER 2024-10-26 09:49 | Outpatient (RCR) | payer BC, SELFPAY ==
[2024-10-26 10:05] LABS: Hematocrit 34.8 % (37-47); Hemoglobin 11.6 g/dL (12.0-15.0); Immature Granulocytes Count 0.010 X10^3/uL (0.0-0.0); Mean Corp Hgb Conc 33.3 g/dL (32-36); Mean Corpuscular Volume 91.6 fL (81-99); Mean Platelet Vol. 11.1 fl (6.2-12.0); NRBC Flagged by Analyzer 0 % (0-5); Platelet Count 248 K/mm3 (150-450); RBC Distribution Width CV 13.2 % (11.6-14.6); RBC Distribution Width SD 44.2 fl (35.1-43.9); Red Blood Count 3.80 M/mm3 (4.2-5.4); White Blood Count 3.4 K/mm3 (4.4-11.0)
[2024-10-26 11:35] LABS: AST(SGOT) 22 U/L (<=31); Alanine Aminotransfer ALT/SGPT 13 U/L (<=34); Albumin, Serum 4.4 g/dL (3.5-5.0); Alkaline Phosphatase 49 U/L (35-104); Anion Gap 12 (5-15); BUN 7 mg/dL (4-19); BUN/Creat Ratio 10.6 RATIO (10-20); Calcium,Total 9.7 mg/dL (7.6-11.0); Carbon Dioxide 24.9 mmol/L (21.0-32.0); Chloride 100 mmol/L (98-108); Globulin 2.8 g/dL (2.2-4.2); Glucose 81 mg/dL (70-99); Potassium 4.1 mmol/L (3.3-5.1)
[2024-10-26 11:37] LABS: CRP < 3.00 mg/L (0.0-3.0)
== END 2024-10-28 21:08 | disposition home or self-care (01) ==
LOC: LAB 09:49
PROVIDERS: PCP Family Medicine; Referring Provider Internal Medicine Rheumatology; Visit Provider Internal Medicine Rheumatology
DX: M35.00 Sjogren syndrome, unspecified (principal); M32.9 Systemic lupus erythematosus, unspecified
CPT/HCPCS: 36415; 80053; 85025; 86140

== ENCOUNTER → 2024-11-04 | Outpatient (CLI) | payer BC, SELFPAY ==
[2024-11-04 18:29] LABS: CPK Total, Creatine Kinase 75 U/L (24-195)
[2024-11-04 18:51] LABS: CRP < 3.00 mg/L (0.0-3.0)
[2024-11-06 16:09] LABS: Anti-Smooth Muscle ABS 6 Units (0-19)
[2024-11-08 13:08] LABS: ANTINUCLEAR ANTIBODIES DIRECT Negative (Negative)
== END | disposition home or self-care (01) ==
LOC: MTLAB 17:04
PROVIDERS: PCP Family Medicine; Referring Provider Internal Medicine Rheumatology; Visit Provider Internal Medicine Rheumatology
DX: M35.00 Sjogren syndrome, unspecified (principal); M32.9 Systemic lupus erythematosus, unspecified
CPT/HCPCS: 36415; 82550; 83516; 86038; 86140; 86225

== ENCOUNTER 2024-12-21 08:55 | Outpatient (RCR) | payer BC, SELFPAY ==
[2024-12-21 09:35] LABS: Hematocrit 33.9 % (37-47); Hemoglobin 11.3 g/dL (12.0-15.0); Immature Granulocytes Count 0.000 X10^3/uL (0.0-0.0); Mean Corp Hgb Conc 33.3 g/dL (32-36); Mean Corpuscular Volume 90.6 fL (81-99); Mean Platelet Vol. 12.3 fl (6.2-12.0); NRBC Flagged by Analyzer 0 % (0-5); Platelet Count 212 K/mm3 (150-450); RBC Distribution Width CV 13.2 % (11.6-14.6); RBC Distribution Width SD 43.2 fl (35.1-43.9); Red Blood Count 3.74 M/mm3 (4.2-5.4); White Blood Count 3.5 K/mm3 (4.4-11.0)
[2024-12-21 10:03] LABS: AST(SGOT) 21 U/L (<=31); Alanine Aminotransfer ALT/SGPT 13 U/L (<=34); Albumin, Serum 4.3 g/dL (3.5-5.0); Alkaline Phosphatase 46 U/L (35-104); Anion Gap 10 (5-15); BUN 7 mg/dL (4-19); BUN/Creat Ratio 13.3 RATIO (10-20); CRP < 3.00 mg/L (0.0-3.0); Calcium,Total 9.5 mg/dL (7.6-11.0); Carbon Dioxide 24.7 mmol/L (21.0-32.0); Chloride 99 mmol/L (98-108); Globulin 2.6 g/dL (2.2-4.2); Glucose 84 mg/dL (70-99); Potassium 4.2 mmol/L (3.3-5.1)
== END 2024-12-28 18:00 | disposition home or self-care (01) ==
LOC: LAB 08:55
PROVIDERS: PCP Family Medicine; Referring Provider Internal Medicine Rheumatology; Visit Provider Internal Medicine Rheumatology
DX: M35.00 Sjogren syndrome, unspecified (principal); M32.9 Systemic lupus erythematosus, unspecified
CPT/HCPCS: 36415; 80053; 85025; 86140

== ENCOUNTER 2025-01-14 09:14 | Day surgery (SDC) | payer BC, SELFPAY ==
--- NOTE | 2025-01-12 15:37 | PAT.ANESEVAL ---
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 When Was Last Pacemaker Check QUESTION #4 FULL TEXT: You/Your Family Experience fever (hyperthermia) with Anesthesia Last Oral Intake Last Oral intake: Last Oral Intake NPO since Meds taken in AM with sips of water? Meds patient instructed to take am of surgery PONV PONV - marine insurance claim examiner: PONV - marine insurance claim examiner Female Yes 01/12/25 15:10 HX of Motion Sickness Yes 01/12/25 15:10 HX of N/V After Surgery No 01/12/25 15:10 Non-Smoker Yes 01/12/25 15:10 Duration of Surgery greater No 01/12/25 15:10 than 60 minutes Number of Risk Factors 3 01/12/25 15:10 PONV Score Moderate Risk 01/12/25 15:10 Height & Weight Height & Weight: Anesthesia: Height & Weight Height 5 ft 2 in 01/10/25 15:19 Respiratory Assessment Respiratory Assessment - marine insurance claim examiner: Respiratory Tract Infection Hx - marine insurance claim examiner Hx Respiratory Tract Infection No 01/12/25 15:10 STOP Sleep Apnea STOP Sleep Apnea - marine insurance claim examiner: STOP Sleep Apnea - marine insurance claim examiner Hx Hypertension No 01/12/25 15:10 Hx Sleep Apnea No 01/12/25 15:10 CPAP No 08/14/23 13:47 BIPAP Do you snore loudly (louder No 01/12/25 15:10 than talking or can be heard Do you often feel tired/ No 01/12/25 15:10 fatigued/ sleepy during daytime? Has anyone observed you stop No 01/12/25 15:10 breathing during sleep? STOP Results Negative 01/12/25 15:10 QUESTION #5 FULL TEXT : Do you snore loudly (louder than talking or can be heard through closed doors)? 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 Specify any problems Hx of Preganancy in last 3 N/A 01/12/25 15:10 Months Nurse Filling Out Transfusion NBUCHER 01/12/25 15:10 & Questions: Date: 01/12/25 01/12/25 15:10 Time: 15:11 01/12/25 15:10 Patient unable to answer at this time (ie. confused, unrespo /Reproduction History /Reproductive History - marine insurance claim examiner: /Reproductive Hx- marine insurance claim examiner Hx Now No 01/12/25 15:10 Gestational Age (in weeks): EDC: Hx Hx Para Hx Section SAB No 01/12/25 15:10 PFSH Medical History (Updated 01/12/25 @ 15:16 by Nya Martinez) Anxiety Sjogren syndrome Restless legs Blood in stool Travel advice encounter Difficulty swallowing Nausea History of edema History of stress test Health care maintenance Swallowing problem Post-menopausal Alcohol use Lupus Injury of head and neck Hair loss Hypothyroidism Seasonal affective disorder Reyez's esophagus Hypokalemia Wears glasses Thyroid disease Arthritis Migraine headache Gastric reflux Non-smoker History of echocardiogram History of irregular heartbeat Anxiety and depression Headache Eye disorder Vertigo Heart murmur Anemia Asthma Annette's thyroiditis Systemic lupus erythematosus Home Medications ?Medication ?Instructions ?Recorded ?Last Taken ?Type albuterol sulfate 90 mcg/actuation 2 puff inhalation Q6H PRN 12/11/22 Unknown Rx aerosol inhaler shortness of breath or wheezing #8.5 grams omeprazole 40 mg capsule,delayed 40 mg PO QDAY #90 caps 12/17/23 Unknown Rx release levothyroxine 75 mcg tablet See Rx Instructions .Route 12/22/23 Unknown Rx .COMPLEX #90 tabs ondansetron HCl 8 mg tablet 8 mg PO Q8H PRN nausea and 01/07/24 Unknown Rx vomiting #14 tabs divalproex 250 mg tablet,delayed 250 mg PO QHS #30 tabs 04/22/24 Unknown Rx release folic acid 1 mg tablet 1 mg PO DAILY #30 tabs 04/22/24 Unknown Rx ondansetron HCl 4 mg tablet 4 mg PO TID PRN nausea and 04/22/24 Unknown Rx vomiting #90 tabs rimegepant 75 mg disintegrating 75 mg PO DAILY PRN migraine 06/29/24 Unknown Rx tablet (Nurtec ODT) headache #16 tabs omega-3 fatty acids-fish oil 300 1 cap PO DAILY 09/20/24 Unknown History mg-500 mg capsule (Fish Oil) aspirin 81 mg chewable tablet 81 mg PO QDAY 01/10/25 Unknown History belimumab 200 mg/mL subcutaneous 200 mg subcut QWEEK 01/10/25 Unknown History auto-injector (Benlysta) citalopram 10 mg tablet 10 mg PO QDAY 01/10/25 Unknown History coenzyme Q10 100 mg capsule 100 mg PO QDAY 01/10/25 Unknown History famotidine 20 mg tablet (Pepcid) 20 mg PO QDAY PRN GERD 01/10/25 Unknown History hydroxychloroquine 200 mg tablet 200 mg PO QDAY 01/10/25 Unknown History (Plaquenil) magnesium 1 tab PO DAILY 01/10/25 Unknown History potassium chloride 20 mEq 40 meq .Route .COMPLEX 01/10/25 Unknown History tablet,extended release(part/cryst) vitamin E (dl, acetate) 450 mg 450 mg PO QDAY 01/10/25 Unknown History (1,000 unit) capsule Allergy/AdvReac Type Severity Reaction Status Date / Time No Known Allergies Allergy Verified 01/12/25 15:07 Family History Father Heart disease Hypertension Thyroid disorder Arthritis Brother Hypertension Thyroid disorder High cholesterol White matter disease Mother Cancer CLL Arthritis Osteoporosis Grandmother Bone cancer Thyroid disorder Grandfather Colon cancer Aunt Lupus Breast cancer Surgical History History of esophagogastroduodenoscopy (EGD) History of endometrial ablation History of colonoscopy History of bilateral carpal tunnel release History of dilatation and curettage History of endoscopy History of tubal ligation History of tonsillectomy and adenoidectomy history of cystoscopy/dilation Social History household members: spouse Smoking Status: Never smoker second hand exposure: No alcohol intake: current alcohol intake frequency: a few times a week Alcohol type: beer and wine details: holiday substance use type: does not use caffeine: No ( ) what type of physical activity do you participate in: walking, bicycling and aerobics frequency: daily nathaniel/lutheran: Catholic seatbelt use: always Audit: Pertinent Findings Pertinent Findings EKG Perinent findings: EKG 12/14/2019. Normal sinus rhythm. Nonspecific T wave abnormality. Recommendation Anesthesia Recommendation Anesthesia recommendation: OPTIMIZED for anesthesia
[2025-01-14] VITALS (8 sets, daily range): BP systolic 97–115; BP diastolic 57–72; PULSE 63–72; RESP 16; TEMP 36.2–36.6; O2SAT 95–100; BMI 23.3
--- NOTE | 2025-01-14 09:27 | PCM.HP.BLA ---
History and Physical Date of Admission: 01/14/25 Date of Service: 01/10/25 MR#: [id number] Acct: [id number] Name: CHASITY ARIAS Rep #: [id number] : 1965 Provider: Dr. Andra Bustos MD Age/Sex: 59/F Location: [facility] Status: Signed Intake Vital Signs 06/29/2509:02 01/10/2515:19 Height 5 ft 2 in 5 ft 2 in Weight: 133 lb 4 oz BMI 24.3 BP 120/82 H Blood Pressure Location Rt brachial Position Sitting Respiration 18 Pulse 75 Pulse Source Monitor Temp 97.5 F L Temp Source Temporal Pulse Oximetry (%) 99 Oxygen Delivery Method room air Intake Visit Reasons: BLOOD IN STOOL Chief Complaint: Blood in stool Remote Sensing Engineer Required: No Is patient in pain?: No Allergies No Known Allergies Allergy (Verified 01/10/25 15:21) Medications ?Medication ?Instructions ?Recorded ?Confirmed ?Type albuterol sulfate 90 mcg/actuation 2 puff inhalation Q6H PRN 12/11/22 01/10/25 Rx aerosol inhaler shortness of breath or wheezing #8.5 grams omeprazole 40 mg capsule,delayed 40 mg PO QDAY #90 caps 12/17/23 01/10/25 Rx release levothyroxine 75 mcg tablet See Rx Instructions .Route 12/22/23 01/10/25 Rx .COMPLEX #90 tabs ondansetron HCl 8 mg tablet 8 mg PO Q8H PRN nausea and 01/07/24 01/10/25 Rx vomiting #14 tabs divalproex 250 mg tablet,delayed 250 mg PO QHS #30 tabs 04/22/24 01/10/25 Rx release folic acid 1 mg tablet 1 mg PO DAILY #30 tabs 04/22/24 01/10/25 Rx ondansetron HCl 4 mg tablet 4 mg PO TID PRN nausea and 04/22/24 01/10/25 Rx vomiting #90 tabs rimegepant 75 mg disintegrating 75 mg PO DAILY PRN migraine 06/29/24 01/10/25 Rx tablet (Nurtec ODT) headache #16 tabs omega-3 fatty acids-fish oil 300 cap PO 09/20/24 01/10/25 History mg-500 mg capsule (Fish Oil) aspirin 81 mg chewable tablet 81 mg PO QDAY 01/10/25 01/10/25 History belimumab 200 mg/mL subcutaneous 200 mg subcut QWEEK 01/10/25 01/10/25 History auto-injector (Benlysta) citalopram 10 mg tablet 10 mg PO QDAY 01/10/25 01/10/25 History coenzyme Q10 100 mg capsule 100 mg PO QDAY 01/10/25 01/10/25 History famotidine 20 mg tablet (Pepcid) 20 mg PO QDAY PRN 01/10/25 01/10/25 History hydroxychloroquine 200 mg tablet 200 mg PO QDAY 01/10/25 01/10/25 History (Plaquenil) magnesium tab PO DAILY 01/10/25 01/10/25 History potassium chloride 20 mEq 40 meq .Route .COMPLEX 01/10/25 History tablet,extended release(part/cryst) vitamin E (dl, acetate) 450 mg 450 mg PO QDAY 01/10/25 01/10/25 History (1,000 unit) capsule Have you fallen in the past year?: No [facility] Medical History (Updated 01/11/25 @ 14:[address] Andra Bustos MD) Blood in stool Travel advice encounter Difficulty swallowing Nausea History of edema History of stress test Health care maintenance Swallowing problem Post-menopausal Alcohol use Lupus Injury of head and neck Hair loss Hypothyroidism Seasonal affective disorder Reyez's esophagus Hypokalemia Wears glasses Thyroid disease Arthritis Migraine headache Gastric reflux Non-smoker History of echocardiogram History of irregular heartbeat Anxiety and depression Headache Eye disorder Vertigo Heart murmur Anemia Asthma Annette's thyroiditis Systemic lupus erythematosus Surgical History History of esophagogastroduodenoscopy (EGD) History of endometrial ablation History of colonoscopy History of bilateral carpal tunnel release History of dilatation and curettage History of endoscopy History of tubal ligation History of tonsillectomy and adenoidectomy history of cystoscopy/dilation Family History Father Heart disease Hypertension Thyroid disorder Arthritis Brother Hypertension Thyroid disorder High cholesterol White matter disease Mother Cancer CLL Arthritis Osteoporosis Grandmother Bone cancer Thyroid disorder Grandfather Colon cancer Aunt Lupus Breast cancer Social History household members: spouse Smoking Status: Never smoker second hand exposure: No alcohol intake: current alcohol intake frequency: a few times a week Alcohol type: beer and wine details: holiday substance use type: does not use caffeine: No ( ) what type of physical activity do you participate in: walking, bicycling and aerobics frequency: daily nathaniel/mormon: Anglican seatbelt use: always HPI HPI HPI: 59-year-old female presents due to bright red blood per rectum. Patient last colonoscopy was in 2019 negative at that time recommended 10 years for follow-up. Patient states about 2 weeks ago she initially noted some blood on toilet paper. Patient has bowel moods about every 4 to 5 days. Patient states about a week ago last Friday had it increased bright red blood as well as some mucus. And Friday evening noticed some blood on her underwear when she went to urinate. Patient's grandfather did have metastatic colon cancer at age 64. Patient has been holding her baby aspirin. ROS General General: Yes fatigue; No weight change, appetite, colon cancer or breast cancer HEENT HEENT: No difficulty swallowing, eye injury, eye surgery, swollen glands or hoarseness Endo Endocrine: Yes thyroid disease; No diabetes mellitus, thyroid cancer, Hair loss, heat intolerance or cold intolerance Skin Skin: No rash or changing moles Musc Musculoskeletal: Yes arthritis; No back problems, rheumatoid arthritis, gout or joint pain Additional Details: Lupus Cardio Cardiovascular: No murmur, pacemaker, heart disease, atrial fibrillation, high blood pressure, heart attack, heart stent, palpitations, shortness of breath with exertion or chest pain Psych Psychiatric: Yes anxiety; No depression or hearing voices Resp Respiratory: No shortness of breath, No sleep apnea, No cough, No COPD, No asthma, No emphysema and No wheezing Gastro Gastrointestinal: No abdominal pain, Yes nausea or vomiting, No diarrhea, Yes constipation, Yes blood in stool, Yes acid reflux, Yes hemorrhoids, No ulcers, No gallbladder problem and No black,tarry stools Gustavo Hematologic: Yes blood thinners, No blood disorders, No bleeding, Yes anemia and No blood clots Additional Details: Baby aspirin daily Neuro Neurologic: Yes numbness and Yes tingling Exam Const General: cooperative, healthy appearing, comfortable and no acute distress HENMT Head: normocephalic and atraumatic Neck Neck: supple Resp Effort & Inspection: normal respiratory effort Cardio Rate: regular rate GI Inspection: non-distended Palpation: soft and nontender Skin General: no rashes or lesions noted Neuro General: CN's II-XI intact bilaterally Extrem General: normal to inspection Psych Mental Status: mental status grossly normal Attitude: cooperative Assessment and Plan Assessment and Plan (1) BRBPR (bright red blood per rectum): Status: Acute Orders: Orders Colonoscopy 01/14/25 Plan I have discussed the above with the patient. I have offered the patient colonoscopy for evaluation. I have explained the risks/benefits of the procedure and described the procedure. I have discussed the risks with the patient, including but not limited to: infection, bleeding, perforation of the GI tract requiring emergency surgery, inability to complete the procedure, injury to any internal organs, complications of anesthesia, etc. - the patient understands and agrees to proceed. I have answered all the patient's questions to the patient's satisfaction and the patient has no further questions. The patient has been given instructions for the colon cleansing preparation. 2 days clears Dulcolax first day and then MiraLAX/Dulcolax prep Andra Bustos M.D. Pager: [phone] [facility] [address] [place] [address], [address] [place] [address] Office: [phone] Coding Level of Care Code Off vis,est,level 3 Diagnoses BRBPR (bright red blood per rectum) K62.5 Clinical Quality Measures Falls Risk Screening/Assistive Devices Have you fallen in the past year?: No 01/11/25 1407 <Electronically signed by Andra Bustos MD> Date Andra Bustos MD
[2025-01-14] MEDS: Lactated Ringers 1,000 ML 15 ML IV (09:41)
--- NOTE | 2025-01-14 09:48 | PRE.ANES_ITS ---
ASA Classification* ASA Classification ASA Classification: 2 Assessment & Plan Anesthesia* Anesthesia Assessment Anesthesia Assessment: Discussed sedation and/or anesthesia options, risks, benefits, and alternatives with patient/parents/legal guardian/POA. Questions invited. The patient/parents/legal guardian/POA seems to understand and agrees to proceed with anesthesia plan. Reviewed the physical assessment, medical history, allergy history and patient home medications list prior to surgery/procedure/anesthetic and documented any changes. Performed airway and anesthesia risk assessments. Anesthesia Type Anesthesia Type: MAC Anesthesia Focused Assessment* Temperature: 97.6 F Pulse Rate: 72 Blood Pressure: 97/60 Respiratory Rate: 16 Pulse Ox: 99 Airway Assessment Mouth opens: >3 cm Mallampati Score: II Labs Anesthesia Preop lab: CBC WBC, (4.4-11.0) 3.5 K/mm3 L 12/21/24, 08:58 RBC, (4.2-5.4) 3.74 M/mm3 L 12/21/24, 08:58 Hgb, (12.0-15.0) 11.3 g/dL L 12/21/24, 08:58 Hct, (37-47) 33.9 % L 12/21/24, 08:58 Plt Count, (150-450) 212 K/mm3 12/21/24, 08:58 CHEMISTRY Potassium, (3.3-5.1) 4.2 mmol/L 12/21/24, 08:58 Sodium, (133-145) 134 mmol/L 12/21/24, 08:58 Magnesium, (1.6-2.6) 2.1 mg/dL 04/24/21, 22:31 BUN, (4-19) 7 mg/dL 12/21/24, 08:58 Creatinine, (0.70-1.20) 0.55 mg/dL L 12/21/24, 08:58 Glucose, (70-99) 84 mg/dL 12/21/24, 08:58 TSH, (0.300-4.200) 3.150 uIU/mL 08/18/24, 13:22 COAG PT, (11.7-14.9) 14.9 SECONDS 01/05/24, 19:34 Pre-Assessment Diagnosis/Proposed Procedure Planned Operative Procedure(s): CSCOPE Anesthesia History 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 When Was Last Pacemaker Check QUESTION #4 FULL TEXT: You/Your Family Experience fever (hyperthermia) with Anesthesia Last Oral Intake Last Oral intake: Last Oral Intake NPO since 00:00 01/14/25 09:39 Meds taken in AM with sips of No 01/14/25 09:39 water? Meds patient instructed to take am of surgery PONV PONV - gunite nozzle operator: PONV - gunite nozzle operator Female Yes 01/12/25 15:10 HX of Motion Sickness Yes 01/12/25 15:10 HX of N/V After Surgery No 01/12/25 15:10 Non-Smoker Yes 01/12/25 15:10 Duration of Surgery greater No 01/12/25 15:10 than 60 minutes Number of Risk Factors 3 01/12/25 15:10 PONV Score Moderate Risk 01/12/25 15:10 Height & Weight Height & Weight: Anesthesia: Height & Weight Height 5 ft 2 in 01/14/25 09:39 Weight: 58 kg 01/14/25 09:39 Body Mass Index (BMI) 23.3 01/14/25 09:39 Respiratory Assessment Respiratory Assessment - gunite nozzle operator: Respiratory Tract Infection Hx - gunite nozzle operator Hx Respiratory Tract Infection No 01/12/25 15:10 STOP Sleep Apnea STOP Sleep Apnea - gunite nozzle operator: STOP Sleep Apnea - gunite nozzle operator Hx Hypertension No 01/12/25 15:10 Hx Sleep Apnea No 01/12/25 15:10 CPAP No 08/14/23 13:47 BIPAP Do you snore loudly (louder No 01/12/25 15:10 than talking or can be heard Do you often feel tired/ No 01/12/25 15:10 fatigued/ sleepy during daytime? Has anyone observed you stop No 01/12/25 15:10 breathing during sleep? STOP Results Negative 01/12/25 15:10 QUESTION #5 FULL TEXT : Do you snore loudly (louder than talking or can be heard through closed doors)? 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 Specify any problems Hx of Preganancy in last 3 N/A 01/12/25 15:10 Months Nurse Filling Out Transfusion NBUCHER 01/12/25 15:10 & Questions: Date: 01/12/25 01/12/25 15:10 Time: 15:11 01/12/25 15:10 Patient unable to answer at this time (ie. confused, unrespo /Reproduction History /Reproductive History - gunite nozzle operator: /Reproductive Hx- gunite nozzle operator Hx Now No 01/12/25 15:10 Gestational Age (in weeks): EDC: Hx Hx Para Hx Section SAB No 01/12/25 15:10 Active Medications Active Medications: Current Medications Generic Name Dose Route Start Last Admin Trade Name Freq PRN Reason Stop Dose Admin Lactated Ringer's 1,000 mls @ 15 mls/hr 01/14/25 09:45 01/14/25 09:41 IV 15 mls/hr .Q48H MARY Administration PFSH Medical History (Updated 01/12/25 @ 15:16 by Nya Martinez) Anxiety Sjogren syndrome Restless legs Blood in stool Travel advice encounter Difficulty swallowing Nausea History of edema History of stress test Health care maintenance Swallowing problem Post-menopausal Alcohol use Lupus Injury of head and neck Hair loss Hypothyroidism Seasonal affective disorder Reyez's esophagus Hypokalemia Wears glasses Thyroid disease Arthritis Migraine headache Gastric reflux Non-smoker History of echocardiogram History of irregular heartbeat Anxiety and depression Headache Eye disorder Vertigo Heart murmur Anemia Asthma Annette's thyroiditis Systemic lupus erythematosus Home Medications ?Medication ?Instructions ?Recorded ?Last Taken ?Type albuterol sulfate 90 mcg/actuation 2 puff inhalation Q 6H PRN 12/11/22 Unknown Rx aerosol inhaler shortness of breath or wheez ing #8.5 grams omeprazole 40 mg capsule,delayed 40 mg PO QDAY #90 cap s 12/17/23 Unknown Rx release levothyroxine 75 mcg tablet See Rx Instructions .Route 12/22/23 Unknown Rx .COMPLEX #90 tabs ondansetron HCl 8 mg tablet 8 mg PO Q8H PRN nausea and 01/07/24 Unknown Rx vomiting #14 tabs divalproex 250 mg tablet,delayed 250 mg PO QHS #30 tab s 04/22/24 Unknown Rx release folic acid 1 mg tablet 1 mg PO DAILY #30 tabs 04/22 Unknown Rx ondansetron HCl 4 mg tablet 4 mg PO TID PRN nausea and 04/22/24 Unknown Rx vomiting #90 tabs rimegepant 75 mg disintegrating 75 mg PO DAILY PRN fausto howard 06/29/24 Unknown Rx tablet (Nurtec ODT) headache #16 tabs omega-3 fatty acids-fish oil 300 1 cap PO DAILY Unknown History mg-500 mg capsule (Fish Oil) aspirin 81 mg chewable tablet 81 mg PO QDAY 01/10/25 U nknown History belimumab 200 mg/mL subcutaneous 200 mg subcut QWEEK 1 Unknown History auto-injector (Benlysta) citalopram 10 mg tablet 10 mg PO QDAY 01/10/25 Unkno wn History coenzyme Q10 100 mg capsule 100 mg PO QDAY 01/10/25 Un known History famotidine 20 mg tablet (Pepcid) 20 mg PO QDAY PRN PORFIRIO D 01/10/25 Unknown History hydroxychloroquine 200 mg tablet 200 mg PO QDAY Unknown History (Plaquenil) magnesium 1 tab PO DAILY 01/10/25 Unkn own History potassium chloride 20 mEq 40 meq .Route .COMPLEX 01/10 Unknown History tablet,extended release(part/cryst) vitamin E (dl, acetate) 450 mg 450 mg PO QDAY 01/10/25 Unknown History (1,000 unit) capsule Allergy/AdvReac Type Severity Reaction Status Date / Time No Known Allergies Allergy Verified 01/14/25 09:36 Family History Father Heart disease Hypertension Thyroid disorder Arthritis Brother Hypertension Thyroid disorder High cholesterol White matter disease Mother Cancer CLL Arthritis Osteoporosis Grandmother Bone cancer Thyroid disorder Grandfather Colon cancer Aunt Lupus Breast cancer Surgical History History of esophagogastroduodenoscopy (EGD) History of endometrial ablation History of colonoscopy History of bilateral carpal tunnel release History of dilatation and curettage History of endoscopy History of tubal ligation History of tonsillectomy and adenoidectomy history of cystoscopy/dilation Social History household members: spouse Smoking Status: Never smoker second hand exposure: No alcohol intake: current alcohol intake frequency: a few times a week Alcohol type: beer and wine details: holiday substance use type: does not use caffeine: No ( ) what type of physical activity do you participate in: walking, bicycling and aerobics frequency: daily nathaniel/synagogue: Zoroastrian seatbelt use: always Review of Systems (Anesthesia) ROS Narrative System reviewed and no additional complaints, except as documented.
--- NOTE | 2025-01-14 10:42 | PCM.POST.ANE ---
Anesthesia: Postop Eval I Current Vital Signs Temperature: 98 F Pulse Rate: 63 Blood Pressure: 113/72 Respiratory Rate: 16 Pulse Ox: 100 Oxygen Delivery Method: Room Air Assessment Airway patent: Yes Spontaneous unlabored respirations: Yes Mental status: Awake and Calm nausea: No Vomiting: No Anesthesia Complication: No Fluid Hydration Crystalloid volume administer (ml): 900 Total IV fluid infused: 900 Progress Note Anesthesia document: Postop Eval 1 completed: Yes
--- NOTE | 2025-01-14 10:47 | OP.PROVAT_ITS ---
01/14/2025 Fabián Ruiz [address] [place] [address] Re : Colonoscopy procedure for [facility] Dear Dr. Ruiz This procedure was performed on Tuesday, January 14, 2025. My impressions and recommendations are as follows: Impressions : - Hemorrhoids found on perianal exam. - Non-bleeding internal hemorrhoids. - The examination was otherwise normal. - No specimens collected. Recommendations : - Discharge patient to home. - Resume previous diet. - Continue present medications. - Repeat colonoscopy in 10 years for screening purposes. My findings are described in the full procedure note, which is enclosed. If I can be of further assistance, please feel free to contact me at Doctor phone number(s): , Work: . Sincerely, MD Andra Fragoso MD 01/14/2025 10:47:21 AM This report has been signed electronically.
--- NOTE | 2025-01-14 10:47 | OP.COLON_ITS ---
Patient Name: Glenys Nieto Procedure Date: 01/14/2025 10:13 AM Date of : 1965 Age: 59 Procedure: Colonoscopy Indications: Rectal bleeding Providers: Andra Bustos MD Medicines: Monitored Anesthesia Care Patient Profile: This is a 59 year old female. Last Colonoscopy: July 2018. Complications: No immediate complications. Procedure: Pre-Anesthesia Assessment: - Prior to the procedure, a History and Physical was performed, and patient medications and allergies were reviewed. The patient's tolerance of previous anesthesia was also reviewed. The risks and benefits of the procedure and the sedation options and risks were discussed with the patient. All questions were answered, and informed consent was obtained. Prior Anticoagulants: The patient has taken no anticoagulant or antiplatelet agents except for aspirin. ASA Grade Assessment: Per anesthesia. After reviewing the risks and benefits, the patient was deemed in satisfactory condition to undergo the procedure. After I obtained informed consent, the scope was passed under direct vision. Throughout the procedure, the patient's blood pressure, pulse, and oxygen saturations were monitored continuously. The Colonoscope was introduced through the anus and advanced to the cecum, identified by the appendiceal orifice, ileocecal valve and palpation. The colonoscopy was performed without difficulty. The patient tolerated the procedure well. The quality of the bowel preparation was good. Scope In: 10:26:49 AM Scope Withdrawal Time 0 hours 7 minutes 51 seconds Scope Out: 10:41:12 AM Total Procedure Duration Time 0 hours 14 minutes 23 seconds Findings: Hemorrhoids were found on perianal exam. Non-bleeding internal hemorrhoids were found. The hemorrhoids were Grade I (internal hemorrhoids that do not prolapse). The exam was otherwise without abnormality. Impression: - Hemorrhoids found on perianal exam. - Non-bleeding internal hemorrhoids. - The examination was otherwise normal. - No specimens collected. Recommendation: - Discharge patient to home. - Resume previous diet. - Continue present medications. - Repeat colonoscopy in 10 years for screening purposes. Procedure Code(s): --- Professional --- 25459, Colonoscopy, flexible; diagnostic, including collection of specimen(s) by brushing or washing, when performed (separate procedure) Diagnosis Code(s): --- Professional --- K64.0, First degree hemorrhoids K62.5, Hemorrhage of anus and rectum CPT copyright 2021 [employer]. All rights reserved. The codes documented in this report are preliminary and upon remote coders review may be revised to meet current compliance requirements. MD Andra Fragoso MD 01/14/2025 10:47:21 AM This report has been signed electronically. Number of Addenda: 0 Note Initiated On: 01/14/2025 10:13 AM
--- NOTE | 2025-01-14 10:48 | POSTOPAN2_ITS ---
Anesthesia Postop Eval I Sum Postop Eval Completion status Anesthesia document: Postop Eval 1 completed: Yes Anesthesia Postop Eval I Summary Anesthesia Postop Eval I Summary: Anesthesia Postop Eval I: Assessment Summary Airway patent Yes 01/14/25 10:43 PROCUREMENT [email or web address].[email or web address] Spontaneous unlabored Yes 01/14/25 10:43 PROCUREMENT CLERK.MDOT respirations Mental status Awake,Calm 01/14/25 10:43 PROCUREMENT CLERK.MDOT nausea No 01/14/25 10:43 PROCUREMENT CLERK.MDOT Vomiting No 01/14/25 10:43 PROCUREMENT CLERK.MDOT Anesthesia Postop Eval I: Fluid Summary Crystalloid volume administer 900 01/14/25 10:43 PROCUREMENT CLERK.MDOT (ml) Colloids volume administered ( ml) Blood Product volume administered (ml) Total IV fluid infused 900 01/14/25 10:43 PROCUREMENT CLERK.MDOT Anesthesia Postop Eval I: Summary Notes Anesthesia Complication No 01/14/25 10:43 PROCUREMENT CLERK.MDOT Anesthesia Complication Comment: Post-operative progress note Anesthesia: Postop Eval II Evaluation Mental status: Awake and Calm Pain Level: 0 nausea: No Vomiting: No Complications Anesthesia Complication: No
--- NOTE | 2025-01-14 10:48 | PCM.POSTANE2 ---
Anesthesia Postop Eval I Sum Postop Eval Completion status Anesthesia document: Postop Eval 1 completed: Yes Anesthesia Postop Eval I Summary Anesthesia Postop Eval I Summary: Anesthesia Postop Eval I: Assessment Summary Airway patent Yes 01/14/25 10:43 INSIDE SALES CONSULTANT.MDOT Spontaneous unlabored Yes 01/14/25 10:43 INSIDE SALES CONSULTANT.MDOT respirations Mental status Awake,Calm 01/14/25 10:43 INSIDE SALES CONSULTANT.MDOT nausea No 01/14/25 10:43 INSIDE SALES CONSULTANT.MDOT Vomiting No 01/14/25 10:43 INSIDE SALES CONSULTANT.MDOT Anesthesia Postop Eval I: Fluid Summary Crystalloid volume administer 900 01/14/25 10:43 INSIDE SALES CONSULTANT.MDOT (ml) Colloids volume administered ( ml) Blood Product volume administered (ml) Total IV fluid infused 900 01/14/25 10:43 INSIDE SALES CONSULTANT.MDOT Anesthesia Postop Eval I: Summary Notes Anesthesia Complication No 01/14/25 10:43 INSIDE SALES CONSULTANT.MDOT Anesthesia Complication Comment: Post-operative progress note Anesthesia: Postop Eval II Evaluation Mental status: Awake and Calm Pain Level: 0 nausea: No Vomiting: No Complications Anesthesia Complication: No
== END 2025-01-14 11:39 | disposition home or self-care (01) ==
LOC: EN 09:16 → AC 09:18
PROVIDERS: PCP Family Medicine; Referring Provider Family Medicine; Visit Provider Surgery
PROC: 0DJD8ZZ Inspection of Lower Intestinal Tract, Via Natural or Artificial Opening Endoscopic (ICD-10-PCS; CPT 45378; principal; 2025-01-14 10:25)
DX: K62.5 Hemorrhage of anus and rectum (principal); K21.9 Gastro-esophageal reflux disease without esophagitis; K64.0 First degree hemorrhoids; J45.909 Unspecified asthma, uncomplicated; Z79.01 Long term (current) use of anticoagulants; K64.4 Residual hemorrhoidal skin tags
CPT/HCPCS: 45378

== ENCOUNTER → 2025-01-14 | Outpatient (CLI) | payer BC, SELFPAY ==
--- NOTE | 2025-01-14 14:35 | BI_ITS ---
EXAM: SCRN MAMM (CAD)W/BELINDA BILAT DATE: 01/14/2025 CLINICAL HISTORY: F, Age 59 y/o , SCREENING TECHNIQUE: Procedure Code: [id number] Modality: MG Procedure: SCRN MAMM (CAD)W/BELINDA BILAT COMPARISON: Prior exam(s) were compared FINDINGS: TISSUE DENSITY: The breasts are heterogeneously dense, which may obscure small masses. Bilateral Breast Mammographic Findings: No suspicious masses, calcifications or other abnormalities are identified. BI/SCRN MAMM (CAD)W/BELINDA BILAT IMPRESSION: No mammographic evidence of malignancy in either breast. OVERALL FINAL ASSESSMENT BI-RADS 1: NEGATIVE. RECOMMENDATION: Routine annual follow-up in 1 Year Additional Recommendation none A letter with findings and recommendations will be mailed to the patient. Reading Location: [id number]
--- OUTSIDE RECORDS SUMMARY | 2025-01-14 15:04 | XMS RPT_ITS | CCD ---
Author Organization [facility] Care Team Providers Care Growth Media Mixer Mushroom Name Role Phone Holly LOPEZ, Shelly Steel Unavailable Unavailab Iris Martinez Unavailable Unavailable Bryant LOPEZ, Alka Jesus Unavailable Unavailab Vannessa Christy Unavailable Unavailable Holly LOPEZ, Shelly Steel Unavailable Unavailab le Fabián Ruiz Unavailable Unavailable Unavailable Unavailable Unavailable Dr. Fabián Ruiz Primary Care Provider [phone] Dr. Fabián Ruiz Referring Provider [phone] KALYANI Chen Attending Provider Dr. Ruchi Wu Attending Provider [phone] Dr. Ruchi Wu Primary Care Provider [phone] Dr. Ruchi Wu Referring Provider [phone] Chris, Dr. Patel Attending Provider [phone] Fabián Ruiz Primary Care Provider [phone] Dr. Fabián Ruiz Referring Provider Wilfredo AUGUSTE PA López Attending Provider [phone] Jose DAMIAN, CLINICAL NUTRITION MANAGER-C Angie Wing Attending Provider Dr. Irma Bennett Attending Provider Dr. Fabián Ruiz Referring Provider Dr. Ruchi Wu Attending Provider [phone] Dr. Andra Bustos Attending Provider Akash, Dr. Silverman Other Provider Dr. Ruchi Wu Primary Care Provider [phone] Bryce, Dr. Vieyra Referring Provider [phone] Bryce, Dr. Vieyra Primary Care Provider [phone] Olenoemi, Dr. Vieyra Referring Provider [phone] KALYANI Montiel Attending Provider [phone] Dr. Ruchi Wu Primary Care Provider 1(33 0) Bryce, Dr. Vieyra Referring Provider [phone] Dr. Ruchi Wu Attending Provider [phone] Dr. Kamron Severino Attending Provider [phone] Dr. Kamron Severino Referring Provider [phone] Dr. Ruchi Wu Primary Care Provider 1(33 0) Dr. Ruchi Wu Referring Provider [phone] Dr. Andra Bustos Attending Provider [phone] Akash, Dr. Silverman Other Provider KALYANI Montiel Attending Provider [phone] Ruchi Wu Attending Provider [phone] Dr. Kamron Severino Attending Provider [phone] Dr. Kamron Severino Referring Provider [phone] Dr. Ruchi Wu Primary Care Provider 1(33 0) Dr. Ruchi Wu Referring Provider [phone] Dr. Andra Bustos Attending Provider Dr. Ruchi Wu Primary Care Provider 1(33 0) Dr. Ruchi Wu Referring Provider [phone] Dr. Ruchi Wu Primary Care Provider 1(33 0) Bryce, Dr. Vieyra Attending Provider [phone] Bryce, Dr. Vieyra Referring Provider [phone] KALYANI Montiel Attending Provider Dr. Ruchi Wu Primary Care Provider 1(33 0) Bryce, Dr. Vieyra Attending Provider [phone] Bryce, Dr. Vieyra Referring Provider [phone] KALYANI Montiel Attending Provider Dr. Michael Fontana Attending Provider [phone] Bryce, Dr. Vieyra Primary Care Provider 1(33 0) Bryce, Dr. Vieyra Referring Provider [phone] KALYANI Montiel Attending Provider Dr. Irma Bennett Attending Provider [phone] Dr. Rcuhi Wu Primary Care Provider 1(33 0) Bryce, Dr. Vieyra Referring Provider [phone] Dr. Michael Fontana Attending Provider Dr. Irma Bennett Referring Provider [phone] Dr. Irma Bennett Other Provider Dr. Ruchi Wu Primary Care Provider 1(33 0) Bryce, Dr. Vieyra Referring Provider [phone] KALYANI Montenegro Attending Provider [phone] Dr. Mingo Brody Attending Provider Dr. Giovany Fonseca Attending Provider Morgan Lanier Attending Unavailable Morgan Lanier Referring Unavailable Dr. Ruchi Wu Primary Care Unavailable Morgan Lanier Attending Unavailable Morgan Lanier Referring Unavailable Bryce, Dr. Ruchi Muro Primary Care Unavailable Morgan Lanier Attending Unavailable Bryce, Dr. Ruchi Muro Primary Care Unavailable Olenoemi, Dr. Ruchi Muro Referring Unavailable Erin, Dr. Pawan Rios Attending Unavaila ble Erin, Dr. Pawan Rios Referring Unavaila ble Oleghe, Dr. Ruchi Muro Primary Care Unavailable Morgan Lanier Attending Unavailable Bryce, Dr. Ruchi Muro Primary Care Unavailable KALYANI Montenegro Referring Provider [phone] Bryce, Dr. Vieyra Attending Provider [phone] Dr. Ruchi Wu Primary Care Provider 1(33 0) Bryce, Dr. Vieyra Referring Provider [phone] Dr. Michael Fontana Attending Provider [phone] Irma Bennett Attending Provider 1(3 [phone]) Dr. Irma Bennett Referring Provider 1(3 [phone]) Dr. Irma Bennett Other Provider KALYANI Montenegro Attending Provider [phone] Dr. Mingo Brody Attending Provider Dr. Giovany Fonseca Attending Provider KALYANI Montenegro Referring Provider [phone] Dr. Ruchi Wu Attending Provider [phone] Ruchi Wu MD Primary Care Prov ider Dr. Ruchi Wu Primary Care Provider 1(33 0) Dr. Ruchi Wu Referring Provider [phone] Dr. Michael Fontana Attending Provider [phone] Ruchi Wu Primary Care Provider 1(33 0) Dr. Ruchi Wu Referring Provider [phone] Dr. Michael Fontana Attending Provider Dr. Ruchi Wu Attending Provider Dr. Andra Bustos Attending Provider Bryce TAYLOR, Dr. Vieyra Primary Care Provider Yannick TAYLOR, Dr. Luna Attending Provider Yannick TAYLOR, Dr. Luna Referring Provider Bryce TAYLOR, Dr. Vieyra Referring Provider Marizol TAYLOR, Dr. Rodriguez Attending Provider Horn DPM, Dr. Fay Attending Provider Jamil DPM, Dr. Fay Referring Provider Bryce TAYLOR, Ruchi Griffithsdicta Primary Care [facility] ider RUCHI WU B Primary Care [facility] Bryce TAYLOR, Dr. Vieyra Primary Care Provider Yannick TAYLOR, Dr. Luna Attending Provider Yannick TAYLOR, Dr. Luna Referring Provider Bryce TAYLOR, Dr. Vieyra Referring Provider Marizol TAYLOR, Dr. Rodriguez Attending Provider Dr. Fabián Ruiz DO Primary Care Provider Dr. Fabián Ruiz DO Attending Provider Dr. Fabián Ruiz DO Referring Provider Bryce TAYOLR, Dr. Vieyra Primary Care Provider Yannick TAYLOR, Dr. Luna Attending Provider Yannick TAYLOR, Dr. Luna Referring Provider [phone] Casimiro Tsai Attending Provider Casimiro Tsai Referring Provider Ynanick TAYLOR, Dr. Luna Attending Provider [phone] Yannick TAYLOR, Dr. Luna Referring Provider [phone] MORGAN LANIER Attending Unavailable OLEGHE, EFEWONGBE AIDEE Primary Care Unav ailable YANNICKMORGAN WILLINGHAM Attending Unavailable OLEGHE, EFEWONGBE AIDEE Primary Care Unav ailable YANNICK, MORGAN Patel Attending Unavailable OLEGHE, EFEWONGBE AIDEE Primary Care Unav neftaly Lanier MD, Dr. Luna Attending Physician Sara DO, Dr. Lockwood Primary Care Physician [phone] Sara DELGADO, Dr. Lockwood Referring Provider [phone] Casimiro Tsai Attending Physician Fabián Ruiz Primary Care Unavailable Fabián Ruiz Referring Unavailable Fabián Ruiz Attending Unavailable Michael Fontana Attending Unavailable Oleghe, Efewongbe Primary Care Unavailable Oleghe, Efewongbe Referring Unavailable Fabián Ruiz Primary Care Unavailable Casimiro Tsai Attending Unavailable Fabián Ruiz Referring Unavailable Andra Bustos Attending Unavailable Fabián Ruiz Primary Care Unavailable Fabián Ruiz Referring Unavailable Michael Fontana Attending Unavailable Oleghe, Efewongbe Referring Unavailable Oleghe, Efewongbe Primary Care Unavailable Oleghe, Efewongbe Primary Care Unavailable Horn, Nya Referring Unavailable Horn, Nya Attending Unavailable Yannick, Van Referring Unavailable Oleghe, Efewongbe Primary Care Unavailable Yannick, Morgan Attending Unavailable Yannick, Morgan Attending Unavailable Yannick, Morgan Referring Unavailable Oleghe, Efewongbe Primary Care Unavailable Yannick, Van Referring Unavailable Oleghe, Efewongbe Primary Care Unavailable Yannick, Morgan Attending Unavailable Yannick, Morgan Attending Unavailable Yannick, Van Referring Unavailable Oleghe, Efewongbe Primary Care Unavailable Yannick, Morgan Attending Unavailable Yannick, Morgan Referring Unavailable SaraFabián woods Primary Care Unavailable Fabián Ruiz Attending Unavailable Fabián Ruiz Primary Care Unavailable SaraFabián woods Referring Unavailable SaraFabián woods Primary Care Unavailable Casimiro Tsai Referring Unavailable Casimiro Tsai Attending Unavailable Andra Bustos Attending Unavailable Fabián Ruiz Primary Care Unavailable Morgan Lanier Attending Unavailable Fabián Ruiz Primary Care Unavailable Morgan Lanier Referring Unavailable Morgan Lanier Attending Unavailable Morgan Lanier Referring Unavailable Fabián Riuz Primary Care Unavailable Morgan Lanier Attending Unavailable Yannick, Morgan Referring Unavailable Fabián Ruiz Primary Care Unavailable Morgan Lanier Attending Unavailable Fabián Ruiz Primary Care Unavailable Yannick, Morgan Referring Unavailable Allergies Allergy Classification Reported Allergen(s) Allergy Type Date of Onset Reaction(s) Facility (5 sources) hydroxychloroquine drug allergy Toxic level in her body. [facility] Work Phone: (15 sources) Hydroxychloroquine Drug Allergy 2 [facility] Medications Current Medications Medication Drug Class(es) Dates Sig (Normalized) Sig (Original) [id number] 200 actuat albuterol 0.09 mg/actuat metered dose inhaler (20 sources) beta2-Adrenergic Agonist Start: 12-11-2022 take 2 puff(s) by inhalation every four hours albuterol 90 mcg/actuation inhaler Inhale 2 puffs every 4 hours if needed. 12/11/2022 Active Start: 12-11-2022 Start: 12-11-2022 take 1 puff(s) by in halation every six hours Albuterol Sulfate Active 2 PUFF INHALATION EVERY 6 HOURS 8.5 December 11, 2022 12:00am Start: 03-19-2017 End: 01-23-2018 Albuterol Sulfate (Ventolin Hfa) 90 mcg/actuation HFA aerosol inhaler Discontinued 2 NMA INHALATION EVERY 6 HOURS 8 0 March 19, 2017 1:00am January 23, 2018 5:48pm Cough shortness of breath or wheezing administer with spacer Start: 03-19-2017 End: 03-19-2017 Albuterol Sulfate (Proventil Hfa) 90 mcg/actuation HFA aerosol inhaler Discontinued 2 NMA INHALATION Q4H as needed for shortness of breath or wheezing March 19, 2017 1:00am March 19, 2017 5:11pm Start: 03-19-2017 End: 01-23-2018 take 1 puff(s) by inhalation every six hours Albuterol Sulfate (Ventolin Hfa) 90 mcg/actuation HFA aerosol inhaler Discontinued 2 PUFF INHALATION EVERY 6 HOURS 8 March 19, 2017 1:00am January 23, 2018 5:48pm administer with spacer Start: 03-19-2017 End: 03-19-2017 take 1 puff(s) by inhalation every four hours Albuterol Sulfate (Proventil Hfa) 90 mcg/actuation HFA aerosol inhaler Discontinued 2 PUFF INHALATION Q4H March 19, 2017 1:00am March 19, 2017 5:11pm amoxicillin 875 mg / clavula beronica 125 mg oral tablet (20 sources) Penicillin-class Antibacterial Start: 09-20-2024 Start: 04-02-2019 End: 04-12-2019 Amoxicillin-Pot Clavulanate (Augmentin) 875-125 mg tablet Discontinued 1 {tbl} PO Q12H April 02, 2019 1:00am April 11, 2019 1:00am April 12, 2019 1:09am Acute sinusitis, unspecified ascorbic acid 500 mg oral tablet (20 sources) Vitamin C Start: 09-20-2024 take 1 tablet by leonie once daily Start: 08-10-2018 End: 08-31-2021 take 1 tablet by mouth once daily Ascorbic Acid (Vitamin C) 500 MG tablet Discontinued 500 mg PO DAILY@0800 August 10, 2018 12:00am August 31, 2021 4:59pm Start: 01-15-2017 End: 01-23-2018 take 1 tablet by mouth once daily Ascorbic Acid (Vitamin C) 500 MG tablet Discontinued 500 mg PO DAILY@0800 January 15, 2017 12:00am January 23, 2018 5:49pm Start: 05-21-2016 CALCIUM ASCORB ATE 500 MG TABS daily CALCIUM ASCORBATE [id number] Iris Alexander b complex 0.4 mg tablet (1 source) take 1 tablet by mouth once daily b complex 0.4 mg tablet Take 1 tablet by mouth once daily. Active biotin 5 mg sublingual tablet (20 sources) Start: 08-12-2023 take 1 tablet under the tongue once daily Start: 06-06-2021 End: 08-31-2021 take 2 tablets by mouth once daily Biotin 5,000 mcg tablet,disintegrating Discontinued 10569 ug PO DAILY June 06, 2021 1:00am August 31, 2021 4:59pm Start: 06-06-2021 End: 08-31-2021 take 49626 ug by mouth once daily Biotin Discontinued 26898 MCG PO DAILY June 06, 2021 1:00am August 31, 2021 4:59pm cholecalciferol 0.025 mg ora l tablet (20 sources) Vitamin D Start: 08-10-2018 take 1 tablet by leonie th once daily Start: 01-15-2017 End: 01-23-2018 take 1 capsule by mouth once daily Cholecalciferol (Vitamin D3) 1,000 UNIT capsule Discontinued 1000 U PO DAILY January 15, 2017 12:00am January 23, 2018 5:49pm Start: 05-21-2016 VITAMIN D3 100 0 UNIT CAPS daily CHOLECALCIFEROL [id number] Iris Alexander Start: 10-20-2013 VITAMIN D3 CAP S 600 mg daily CHOLECALCIFEROL CAPS [id number] Fabián Ruiz DO Start: 10-20-2013 VITAMIN D3 CAP S 600 mg daily CHOLECALCIFEROL CAPS [id number] Fabián Ruiz DO Vitamin D3 Super Strength 50 MCG (2000 UT) TABS 1 daily Quantity: 0 Refills: 0 Ordered: 04-Dec-2022 DO Active cholecalciferol, vitD3,/vit K2 (vitamin D3-vitamin K2) 125-90 mcg capsule (1 source) cholecalciferol, vitD3,/vit K2 (vitamin D3-vitamin K2) 125-90 mcg capsule Take by mouth once daily. Active gabapentin 100 mg oral capsule (1 source) Anti-epileptic Agent Start: 2024 End: 2025 take 1 capsule by mouth once daily at bedtime gabapentin (Neurontin) 100 mg capsule Indications: Sjogren's syndrome, with unspecified organ involvement (Multi) Take 1 capsule (100 mg) by mouth once daily at bedtime. 90 capsule 3 11/03/2024 11/03/2025 Active hydroxychloroquine sulfate 200 mg oral tablet (20 sources) Antimalarial, Antirheumatic Agent Start: 2024 End: 2025 take 1 tablet by mouth once daily hydroxychloroquine (Plaquenil) 200 mg tablet Indications: Systemic lupus erythematosus, unspecified SLE type, unspecified organ involvement status (Multi) Take 1 tablet (200 mg) by mouth once daily. 90 tablet 3 07/13/2024 07/13/2025 Active Start: 03-10-2023 End: 06-03-2024 take 1 tablet by mouth once daily hydroxychloroquine (Plaquenil) 200 mg tablet Indications: Systemic lupus erythematosus, unspecified SLE type, unspecified organ involvement status (Multi) Take 1 tablet (200 mg) by mouth once daily. 90 tablet 3 06/04/2023 06/03/2024 Active Start: 09-11-2022 take 1 tablet by leonie th twice daily Start: 06-25-2022 take 1 tablet by leonie th once daily Hydroxychloroquine Sulfate 200 MG Oral Tablet Take 1 tablet daily Quantity: 90 Refills: 2 Ordered: 04-Dec-2022 Mogran Lanier MD Start : 25-Jun-2022 Active Start: 10-20-2013 End: 05-31-2016 PLAQUENIL 200 MG TABS daily HYDROXYCHLOROQUINE SULFATE [id number] Iris Alexander levothyroxine sodium 0.075 m g oral tablet (20 sources) l-Thyroxine Start: 12-22-2023 take 1 tablet by leonie th once daily Start: 06-17-2023 End: 02-04-2024 take 1 tablet by mouth once daily Levothyroxine 88 mcg tablet Discontinued 0 .ROUTE .COMPLEX 60 2 December 17, 2023 1:18pm December 22, 2023 4:42pm TAKE 1 TABLET BY MOUTH ONCE DAILY Start: 06-11-2021 End: 06-17-2023 take 1 tablet by mouth once daily Levothyroxine 75 mcg tablet Discontinued 0 .ROUTE .COMPLEX 90 2 October 28, 2022 9:07am December 11, 2022 2:59pm TAKE 1 TABLET BY MOUTH ONCE DAILY Start: 06-06-2021 End: 06-11-2021 take 1 tablet by mouth once daily Levothyroxine (Synthroid) 100 mcg tablet Discontinued 100 ug PO DAILY June 06, 2021 1:00am June 11, 2021 11:47am Start: 10-20-2013 End: 06-06-2021 take 1 tablet by mouth once daily Levothyroxine 75 MCG tablet Discontinued 75 ug PO DAILY February 08, 2015 1:00am June 06, 2021 2:25pm Start: 10-20-2013 SYNTHROID 75 M CG TABS daily LEVOTHYROXINE SODIUM [id number] Fabián Ruiz DO Synthroid 100 MC G Oral Tablet Quantity: 0 Refills: 0 Ordered: 07-Apr-2020 DO Active Magnesium (6 sources) Start: 09-20-2024 Start: 09-20-2024 Magnesium tabl et Active {tbl} PO September 20, 2024 12:00am mycophenolate mofetil 250 mg oral capsule (20 sources) Start: 07-30-2023 take 1 capsule by mouth twice daily in the morning, then take 2 capsules by mouth in the evening Mycophenolate Mofetil (Cellcept) 250 mg capsule Active 250 MG PO TWICE A DAY July 30, 2023 12:00am 1 in am, 2 in pm Start: 03-12-2023 End: 02-04-2024 take 1 capsule by mouth once daily in the morning, then take 2 capsules by mouth in the evening Start: 03-27-2022 Mycophenolate Mofetil (Cellcept) 500 mg tablet Active 250 MG PO TWICE A DAY March 27, 2022 2:26pm Start: 11-05-2020 End: 03-27-2022 take 1 tablet by mouth at bedtime Start: 04-07-2020 End: 03-12-2023 take 1 capsule by mouth twice daily mycophenolate (Cellcept) 250 mg capsule Take 1 capsule (250 mg) by mouth 2 times a day. 0 04/07/2020 03/12/2023 Discontinued (Reorder) [place]-3 Fatty Acids-Fish Oil (Fish Oil) 300-500 mg capsule (6 sources) Start: 09-20-2024 Start: 09-20-2024 [place]-3 Fatty Acids-Fish Oil (Fish Oil) 300-500 mg capsule Active NMA PO September 20, 2024 12:00am omeprazole 40 mg delayed release oral capsule (20 sources) Proton Pump Inhibitor Start: 08-19-2023 End: 12-17-2023 take 1 capsule by mouth once daily Start: 08-12-2023 End: 08-19-2023 take 1 capsule by mouth twice daily Omeprazole 40 mg capsule,delayed release(DR/EC) Discontinued 40 mg PO TWICE A DAY August 12, 2023 12:00am August 19, 2023 11:48am swallow whole; do not crush, chew, dissolve, cut, break Start: 07-21-2023 End: 08-12-2023 take 1 capsule by mouth once daily Omeprazole 40 mg capsule,delayed release(DR/EC) Discontinued 40 mg PO daily 60 5 July 21, 2023 12:00am August 12, 2023 10:49am swallow whole; do not crush, chew, dissolve, cut, break ondansetron 8 mg oral tablet (20 sources) Serotonin-3 Receptor Antagonist Start: 01-07-2024 take 1 tablet by mouth every eight hours as needed for nausea and vomiting Start: 01-06-2024 End: 09-20-2024 take 1 tablet by mouth every six hours as needed for nausea Ondansetron 4 mg tablet,disintegrating Discontinued 4 mg PO EVERY 6 HOURS NEEDED as needed for Nausea 15 0 January 06, 2024 12:00am September 20, 2024 5:38pm Start: 06-25-2022 take 2 tablets by mo uth every eight hours as needed ondansetron (Zofran) 4 mg tablet Take 2 tablets (8 mg) by mouth every 8 hours if needed. 06/25/2022 Active Start: 06-25-2022 End: 04-22-2024 take 1 tablet by mouth three times daily as needed for nausea and vomiting Zofran 4 MG TABS as needed Quantity: 0 Refills: 0 Ordered: 25-Jun-2022 DO Active rimegepant 75 mg disintegrating oral tablet (17 sources) Start: 08-26-2023 End: 06-29-2024 take 1 tablet by mouth once daily as needed for headache vitamin b12 1 mg oral tablet (13 sources) Vitamin B12 Start: 08-12-2023 take 1 tablet by leonie once daily Start: 05-21-2016 VITAMIN B-12 5 00 MCG TABS daily CYANOCOBALAMIN [id number] Iris Alexander Start: 05-21-2016 VITAMIN B-12 5 00 MCG TABS daily CYANOCOBALAMIN [id number] Iris Alexander Completed/Discontinued Medications Medication Drug Class(es) Dates Sig (Normalized) Sig (Original) acetaminophen 325 mg / HYDROcodone bitartrate 5 mg oral tablet (20 sources) Opioid Agonist Start: 01-20-2017 End: 01-23-2018 Hydrocodone-Acetami nophen 1 EACH tablet Discontinued 1 - 2 NMA PO EVERY 4 HOURS NEEDED as needed for Severe Pain () 10 January 20, 2017 7:32am January 23, 2018 5:49pm Start: 01-20-2017 End: 01-23-2018 Hydrocodone-Acetaminophen Di scontinued 1 - 2 EACH PO EVERY 4 HOURS NEEDED January 20, 2017 7:32am January 23, 2018 5:49pm acyclovir 800 mg oral tablet (20 sources) Herpesvirus Nucleoside Analog DNA Polymerase Inhibitor, Herpes Simplex Virus Nucleoside Analog DNA Polymerase Inhibitor, Herpes Zoster Virus Nucleoside Analog DNA Polymerase Inhibitor Start: 01-23-2018 End: 01-30-2018 take 5 tablets by mouth every twenty-four hours Acyclovir 800 mg tablet Discontinued 800 mg PO Q4H 42 7 0 January 23, 2018 12:00am January 29, 2018 12:00am January 30, 2018 12:10am while awake; give 5 doses in 24 hours Antiarthritic Combination No.2 (Glucosamine-Chondr oitin) 900 mg tablet (20 sources) Start: 03-15-2017 End: 01-23-2018 Antiarthritic Combination No.2 (Glucosamine-Chond roitin) 900 mg tablet Discontinued MG PO March 15, 2017 7:20am January 23, 2018 5:49pm Start: 03-15-2017 End: 01-23-2018 Antiarthritic Combination No .2 (Glucosamine-Chondroitin) 900 mg tablet Discontinued mg PO 0 March 15, 2017 1:00am January 23, 2018 5:49pm Start: 03-15-2017 End: 01-23-2018 Antiarthritic Combination No .2 (Glucosamine-Chondroitin) 900 mg tablet Discontinued mg PO March 15, 2017 1:00am January 23, 2018 5:49pm Start: 03-15-2017 End: 01-23-2018 Antiarthritic Combination No .2 (Glucosamine-Chondroitin) 900 mg tablet Discontinued MG PO March 15, 2017 12:00am January 23, 2018 4:49pm Start: 03-15-2017 End: 01-23-2018 Antiarthritic Combination No .2 (Glucosamine-Chondroitin) 900 mg tablet Discontinued MG PO March 15, 2017 1:00am January 23, 2018 5:49pm azithromycin 250 mg oral tablet (20 sources) Macrolide Antimicrobial Start: 04-02-2022 Azithromycin 250 MG Oral Tablet Quantity: 6 Refills: 0 Ordered: 02-Apr-2022 DO Start : 02-Apr-2022 Complete Start: 04-02-2022 End: 05-01-2022 take 2-5 tablets by mouth once daily Azithromycin 250 mg tablet Discontinued 0 PO .COMPLEX 6 0 April 02, 2022 1:00am May 01, 2022 4:28pm take 500 mg today (day 1), then 250 mg for 4 days (days 2-5) PO B COMPLEX VITAMINS (2 sources) Start: 10-20-2013 B COMPLEX CAPS daily B COMPLEX VITAMINS [id number] Fabián Milvia Sara DELGADO B COMPLEX VITAMINS (3 sources) Start: 10-20-2013 B COMPLEX CAPS daily B COMPLEX VITAMINS [id number] Fabián Milvia Sara DELGADO Start: 10-20-2013 B COMPLEX CAPS daily B COMPLEX VITAMINS [id number] Fabián Milvia Sara DELGADO benzonatate 100 mg oral capsule (20 sources) Non-narcotic Antitussive Start: 04-02-2019 End: 11-05-2020 take 2 capsules by mouth three times daily as needed for cough Benzonatate 100 mg capsule Discontinued 200 mg PO THREE TIMES A DAY as needed for cough 30 0 April 02, 2019 1:00am November 05, 2020 9:52am Start: 04-02-2019 End: 11-05-2020 take 200 mg by mouth three times daily Benzonatate Discontinued 200 MG PO THREE TIMES A DAY April 02, 2019 1:00am November 05, 2020 9:52am borage oil 1000 mg oral capsule (5 sources) Start: 05-21-2016 BORAGE OIL 100 0 MG CAPS One cap daily BORAGE (BORAGO OFFICINALIS) [id number] Iris Alexander calcium carbonate 1500 mg oral tablet (20 sources) Start: 08-10-2018 End: 11-05-2020 take 1 tablet by mouth once daily Calcium Carbonate 600 MG tablet Discontinued 600 mg PO DAILY August 10, 2018 12:00am November 05, 2020 9:52am calcium carbonate 1250 mg / cholecalciferol 500 unt / vitamin k 0.04 mg chewable tablet (10 sources) Vitamin D Start: 10-20-2013 End: 05-31-2016 VIACTIV 500-500-40 MG-UNT-MCG CHEW daily CALCIUM-VITAMIN D-VITAMIN K [id number] Fabián Steel Sarapeggy DELGADO Start: 10-20-2013 VIACTIV 500-50 0-40 MG-UNT-MCG CHEW daily CALCIUM-VITAMIN D-VITAMIN K [id number] Fabián Milvia Sara DELGADO Start: 10-20-2013 End: 05-31-2016 VIACTIV 500-500-40 MG-UNT-MC G CHEW daily CALCIUM-VITAMIN D-VITAMIN K 14787074023 Iris Alexander CALCIUM CITRATE-VITAMIN D LI QD (4 sources) Start: 10-20-2013 End: 05-31-2016 CALCIUM CITRATE-VITAMIN D3 L IQD 50 mg daily CALCIUM CITRATE-VITAMIN D LIQD [id number] Iris Alexander Start: 10-20-2013 CALCIUM CITRAT E-VITAMIN D3 LIQD 50 mg daily CALCIUM CITRATE-VITAMIN D LIQD 49695341064 Fabián Ruiz DO CALCIUM CITRATE-VITAMIN D LI QD (6 sources) Start: 10-20-2013 CALCIUM CITRAT E-VITAMIN D3 LIQD 50 mg daily CALCIUM CITRATE-VITAMIN D LIQD [id number] Fabián iMlvia Sara DELGADO Start: 10-20-2013 End: 05-31-2016 CALCIUM CITRATE-VITAMIN D3 L IQD 50 mg daily CALCIUM CITRATE-VITAMIN D LIQD [id number] Iris Alexander Start: 10-20-2013 End: 05-31-2016 CALCIUM CITRATE-VITAMIN D3 L IQD 50 mg daily CALCIUM CITRATE-VITAMIN D LIQD 53155809665 Iris Alexander Start: 10-20-2013 CALCIUM CITRAT E-VITAMIN D3 LIQD 50 mg daily CALCIUM CITRATE-VITAMIN D LIQD 08907749126 Fabián Ruiz DO celecoxib 100 mg oral capsule (20 sources) Nonsteroidal Anti-inflammatory Drug Start: 06-06-2021 End: 08-26-2023 take 1 capsule by mouth once daily as needed for pain Celecoxib (Celebrex) 100 mg capsule Discontinued 100 mg PO DAILY as needed for pain 90 2 October 25, 2022 1:05pm June 11, 2023 1:21pm Start: 11-05-2020 End: 06-06-2021 take 1 capsule by mouth twice daily Celecoxib (Celebrex) 100 mg capsule Discontinued 100 mg PO TWICE A DAY November 05, 2020 12:00am June 06, 2021 2:43pm CeleBREX 100 MG Oral Capsule Quantity: 0 Refills: 0 Ordered: 07-Apr-2020 DO Active cetirizine hydrochloride 10 mg oral capsule (20 sources) Histamine-1 Receptor Antagonist Start: 08-10-2018 End: 06-06-2021 take 1 capsule by mouth once daily Cetirizine 10 MG capsule Discontinued 10 mg PO DAILY August 10, 2018 12:00am June 06, 2021 2:27pm ZyrTEC Allergy 1 0 MG Oral Capsule Quantity: 0 Refills: 0 Ordered: 07-Apr-2020 DO Active [id number] CAPS (5 sources) Start: 05-21-2016 UESYFMULFKE-[id number]-KIK CAPS 1100mg daily [id number] CAPS [id number] Iris Alexander Start: 05-21-2016 GLUCOSAMINE-CH ONDROITIN-MSM CAPS 1100mg daily [id number] CAPS [id number] Iris Alexander DOCOSAHEXAENOIC ACID-EPA CAP S (2 sources) Start: 05-21-2016 OMEGA-3 CAPS d ocosahexaenoic acid 120mg/ Eicosapentaenoic acid 180mg caps DOCOSAHEXAENOIC ACID-EPA CAPS [id number] Iris Alexander DOCOSAHEXAENOIC ACID-EPA CAP S (3 sources) Start: 05-21-2016 OMEGA-3 CAPS d ocosahexaenoic acid 120mg/ Eicosapentaenoic acid 180mg caps DOCOSAHEXAENOIC ACID-EPA CAPS [id number] Iris Alexander Start: 05-21-2016 OMEGA-3 CAPS d ocosahexaenoic acid 120mg/ Eicosapentaenoic acid 180mg caps DOCOSAHEXAENOIC ACID-EPA CAPS [id number] Iris Alexander docusate sodium 100 mg oral capsule (20 sources) Start: 08-10-2018 End: 06-06-2021 take 2 capsules by mouth once daily Docusate Sodium 100 MG capsule Discontinued 200 mg PO DAILY August 10, 2018 12:00am June 06, 2021 2:27pm Start: 08-10-2018 End: 06-06-2021 take 200 mg by mouth once daily Docusate Sodium Discon tinued 200 MG PO DAILY August 10, 2018 12:00am June 06, 2021 2:27pm Start: 03-15-2017 End: 01-23-2018 take 1 capsule by mouth at bedtime Docusate Calcium 240 mg capsule Discontinued 240 mg PO AT BEDTIME March 15, 2017 1:00am January 23, 2018 5:49pm Start: 05-21-2016 DOCUSATE CALCI UM 240 MG CAPS One cap daily DOCUSATE CALCIUM [id number] Iris Alexander Start: 10-20-2013 DOCUSATE SODIU M 100 MG TABS daily DOCUSATE SODIUM [id number] Fabián Ruiz DO DULoxetine 30 mg delayed release oral capsule (20 sources) Serotonin and Norepinephrine Reuptake Inhibitor Start: 12-17-2023 End: 09-20-2024 take 1 capsule by mouth once daily in the morning Duloxetine 30 mg capsule,delayed release(DR/EC) Discontinued 30 mg PO daily 90 December 17, 2023 1:35pm September 20, 2024 5:38pm IN AM pt changed to daily due to being "over sedated" Start: 12-26-2021 End: 11-03-2024 take 1 capsule by mouth twice daily Duloxetine 30 mg capsule,delayed release(DR/EC) Discontinued 30 mg PO TWICE A DAY 180 October 28, 2023 11:15am December 17, 2023 12:58pm Fish Oils (10 sources) Start: 10-20-2013 FISH OIL CAPS 3,000 mg daily OMEGA-3 FATTY ACIDS CAPS [id number] Fabián Ruiz DO Start: 10-20-2013 End: 05-31-2016 FISH OIL CAPS 3,000 mg daily OMEGA-3 FATTY ACIDS CAPS [id number] Iris Alexander Start: 10-20-2013 FISH OIL CAPS 3,000 mg daily OMEGA-3 FATTY ACIDS CAPS [id number] Fabián Ruiz DO Start: 10-20-2013 End: 05-31-2016 FISH OIL CAPS 3,000 mg daily OMEGA-3 FATTY ACIDS CAPS [id number] Iris Alexander Fish,Flaxseed Oil-E.Prim-Bcu rr (Fish, Flax [place]bor[place] Oil(Prim)) 400-400-200 mg capsule (20 sources) Start: 03-15-2017 End: 01-23-2018 Fish,Flaxseed Oil-E.Prim-Bcu rr (Fish, Flax Andborage Oil(Prim)) 400-400-200 mg capsule Discontinued CAP PO March 15, 2017 7:20am January 23, 2018 5:49pm Start: 03-15-2017 End: 01-23-2018 Fish,Flaxseed Oil-E.Prim-Bcu rr (Fish, Flax [place]borage Oil(Prim)) 400-400-200 mg capsule Discontinued NMA PO 0 March 15, 2017 1:00am January 23, 2018 5:49pm Start: 03-15-2017 End: 01-23-2018 Fish,Flaxseed Oil-E.Prim-Bcu rr (Fish, Flax Andborage Oil(Prim)) 400-400-200 mg capsule Discontinued NMA PO March 15, 2017 1:00am January 23, 2018 5:49pm Start: 03-15-2017 End: 01-23-2018 Fish,Flaxseed Oil-E.Prim-Bcu rr (Fish, Flax [place] Oil(Prim)) 400-400-200 mg capsule Discontinued CAP PO March 15, 2017 12:00am January 23, 2018 4:49pm Start: 03-15-2017 End: 01-23-2018 Fish,Flaxseed Oil-E.Prim-Bcu rr (Fish, Flax Andborage Oil(Prim)) 400-400-200 mg capsule Discontinued CAP PO March 15, 2017 1:00am January 23, 2018 5:49pm fluconazole 150 mg oral tablet (20 sources) Azole Antifungal Start: 04-02-2019 End: 11-05-2020 Fluconazole (Diflucan) 150 mg tablet Discontinued 150 mg PO Every 3 Days 2 0 0 April 02, 2019 1:00am November 05, 2020 9:52am Start: 05-21-2016 End: 06-14-2016 FLUCONAZOLE 150 MG TABS One tab; may repeat in 3 days if needed FLUCONAZOLE [id number] Shelly Barrera CYLINDER GRINDER 120 actuat fluticasone propionate 0.044 mg/actuat metered dose inhaler (20 sources) Corticosteroid Start: 01-15-2017 End: 03-19-2017 Fluticasone Propionate 1 INHALER inhaler Discontinued 2 NMA INHALATION TWICE A DAY January 15, 2017 12:00am March 19, 2017 2:16pm Start: 01-15-2017 End: 03-19-2017 take 1 puff(s) by inhalation twice daily Fluticasone Propionate Discontinued 2 PUFF INHALATION TWICE A DAY January 15, 2017 12:00am March 19, 2017 2:16pm Start: 04-19-2016 FLOVENT HFA 44 MCG/ACT AERO 2 puffs twice daily FLUTICASONE PROPIONATE HFA [id number] Sia Page CNP Start: 04-19-2016 FLOVENT HFA 44 MCG/ACT AERO FLUTICASONE PROPIONATE HFA [id number] Iris Alexander Start: 04-19-2016 FLOVENT HFA 44 MCG/ACT AERO 2 puffs twice daily FLUTICASONE PROPIONATE HFA [id number] Sia Page CNP Start: 04-19-2016 FLOVENT HFA 44 MCG/ACT AERO FLUTICASONE PROPIONATE HFA [id number] Iris Alexander Start: 04-19-2016 FLOVENT HFA 44 MCG/ACT AERO FLUTICASONE PROPIONATE HFA [id number] Iris Alexander 14 actuat fluticasone furoate 0.2 mg/actuat / vilanterol 0.025 mg/actuat dry powder inhaler (20 sources) Corticosteroid, beta2-Adrenergic Agonist Start: 03-19-2017 End: 01-23-2018 Fluticasone Furoate-Vilanterol (Breo Ellipta) 200-25 mcg/dose blister with device Discontinued 1 NMA INHALATION Q24H 25 08March 19, 2017 1:00am January 23, 2018 5:49pm Unspecified asthma, uncomplicated after inhalation, rinse mouth with water and spit out; do not swallow Start: 03-19-2017 End: 01-23-2018 Fluticasone Furoate-Vilanter ol (Breo Ellipta) 200-25 mcg/dose blister with device Discontinued 1 INH INHALATION Q24H March 19, 2017 1:00am January 23, 2018 5:49pm after inhalation, rinse mouth with water and spit out; do not swallow Start: 06-14-2016 take 1 puff(s) by in halation once daily BREO ELLIPTA 200-25 MCG/INH AEPB One puff INH every day FLUTICASONE FUROATE-VILANTEROL [id number] Vignesh Terrazas Start: 06-14-2016 take 1 puff(s) by in halation once daily BREO ELLIPTA 200-25 MCG/INH AEPB One puff INH every day FLUTICASONE FUROATE-VILANTEROL [id number] Vignesh Terrazas folic acid 1 mg oral tablet (20 sources) Start: 06-25-2022 End: 04-22-2024 take 1 tablet by mouth once daily Folic Acid 1 mg tablet Discontinued 1 mg PO DAILY 30 August 26, 2023 8:27am April 22, 2024 9:41am Start: 08-10-2018 End: 11-05-2020 take 1 capsule by mouth once daily Folic Acid 0.8 MG capsule Discontinued 0.8 mg PO DAILY August 10, 2018 12:00am November 05, 2020 9:52am Start: 10-20-2013 FOLIC ACID 800 MCG TABS daily FOLIC ACID [id number] Fabián Ruiz DO 1 ml galcanezumab-gnlm 120 mg/ml auto-injector (20 sources) Start: 03-27-2022 End: 06-25-2022 Galcanezumab-Gnlm (Emgality Pen) 120 mg/mL pen injector Discontinued 120 mg SC EVERY MONTH 1 March 27, 2022 1:00am June 25, 2022 10:10am Ibuprofen (10 sources) Nonsteroidal Anti-inflammatory Drug Start: 10-20-2013 IBUPROFEN TABS 800 m g 1-2 daily as needed IBUPROFEN TABS [id number] Fabián Ruiz DO Start: 10-20-2013 End: 05-31-2016 IBUPROFEN TABS 800 mg 1-2 da artis as needed IBUPROFEN TABS [id number] Iris Paige Benjamin Start: 10-20-2013 End: 05-31-2016 IBUPROFEN TABS 800 mg 1-2 da artis as needed IBUPROFEN TABS [id number] Iris Royal Benjamin Start: 10-20-2013 IBUPROFEN TABS 800 mg 1-2 daily as needed IBUPROFEN TABS [id number] Fabián Brunsonutzjayden DELGADO Iodine (20 sources) Start: 03-15-2017 End: 01-23-2018 Iodine (Kelp) Discontinued T ABLET PO March 15, 2017 7:20am January 23, 2018 5:49pm Start: 03-15-2017 End: 01-23-2018 Iodine (Kelp) tablet Discont inued {tbl} PO 0 March 15, 2017 1:00am January 23, 2018 5:49pm Start: 03-15-2017 End: 01-23-2018 Iodine (Kelp) tablet Discont inued {tbl} PO March 15, 2017 1:00am January 23, 2018 5:49pm Start: 03-15-2017 End: 01-23-2018 Iodine (Kelp) Discontinued T ABLET PO March 15, 2017 12:00am January 23, 2018 4:49pm Start: 03-15-2017 End: 01-23-2018 Iodine (Kelp) Discontinued T ABLET PO March 15, 2017 1:00am January 23, 2018 5:49pm KELP TABS (2 sources) Start: 05-21-2016 KELP TABS 41 m g daily KELP TABS [id number] Iris Alexander KELP TABS (3 sources) Start: 05-21-2016 KELP TABS 41 m g daily KELP TABS [id number] Iris Alexander Start: 05-21-2016 KELP TABS 41 m g daily KELP TABS [id number] Iris Alexander ketorolac tromethamine 10 mg oral tablet (4 sources) Nonsteroidal Anti-inflammatory Drug, Cyclooxygenase Inhibitor Start: 07-09-2021 take 1 tablet by mouth every six hours at mealtime Ketorolac Tromethamine 10 MG Oral Tablet TAKE 1 TABLET BY MOUTH EVERY 6 HOURS WITH FOOD Quantity: 20 Refills: 0 Ordered: 09-Jul-2021 Erich ENCINAS-STRATIGRAPHY TEACHER, Lung Start : 09-Jul-2021 Active Start: 07-09-2021 Ketorolac Trom ethamine 60 MG/2ML Intramuscular Solution INJECT 2 ML Intramuscular Quantity: 0 Refills: 0 Ordered: 09-Jul-2021 Erich ENCINAS-STRATIGRAPHY TEACHER, Lung Start : 09-Jul-2021 Complete magnesium oxide 400 mg oral capsule (20 sources) Start: 03-15-2017 End: 01-23-2018 take 1 capsule by mouth once daily Magnesium Oxide 400 mg capsule Discontinued 400 mg PO daily March 15, 2017 1:00am January 23, 2018 5:49pm Start: 05-21-2016 MAGNESIUM OXID E 400 MG CAPS One cap daily MAGNESIUM OXIDE [id number] Iris Alexander METHENAMINE-SODIUM SALICYLAT E TABS (6 sources) Start: 10-20-2013 End: 05-31-2016 CYSTEX TABS as needed METHENAMINE-SODIUM SALICYLATE TABS [id number] Iris Alexander Start: 10-20-2013 CYSTEX TABS as needed METHENAMINE-SODIUM SALICYLATE TABS [id number] Fabián A Sara DO Start: 10-20-2013 End: 05-31-2016 CYSTEX TABS as needed 10/20 METHENAMINE-SODIUM SALICYLATE TABS [id number] Iris Alexander Start: 10-20-2013 CYSTEX TABS as needed METHENAMINE-SODIUM SALICYLATE TABS [id number] Fabián A Sara DO METHENAMINE-SODIUM SALICYLAT E TABS (4 sources) Start: 10-20-2013 End: 05-31-2016 CYSTEX TABS as needed METHENAMINE-SODIUM SALICYLATE TABS [id number] Iris Alexander Start: 10-20-2013 CYSTEX TABS as needed METHENAMINE-SODIUM SALICYLATE TABS [id number] Fabián Ruiz DO Multivitamin With Folic Acid (20 sources) Start: 02-08-2015 End: 01-23-2018 take 1 tablet by mouth once daily Multivitamin With Folic Acid Discontinued 1 TABLET PO DAILY February 08, 2015 3:31pm January 23, 2018 5:49pm Start: 02-08-2015 End: 01-23-2018 take 1 tablet by mouth once daily Multivitamin With Folic Acid Discontinued 1 TABLET PO DAILY February 08, 2015 12:00am January 23, 2018 4:49pm Start: 02-08-2015 End: 01-23-2018 take 1 tablet by mouth once daily Multivitamin With Folic Acid Discontinued 1 TABLET PO DAILY February 08, 2015 1:00am January 23, 2018 5:49pm Multivitamin With Folic Acid 1 TABLET tablet (8 sources) Start: 02-08-2015 End: 01-23-2018 take 1 tablet by mouth once daily Multivitamin With Folic Acid 1 TABLET tablet Discontinued 1 {tbl} PO DAILY February 08, 2015 1:00am January 23, 2018 5:49pm Nirmatrelvir-Ritonavir (1 source) Start: 03-14-2023 End: 04-22-2023 Nirmatrelvir-Ritonavir (Paxlovid) 300 mg (150 mg x 2)-100 mg tablets,dose pack Discontinued 0 PO .COMPLEX 30 March 14, 2023 1:00am April 22, 2023 9:36am take TWO 150 mg tablets of nirmatrelvir with ONE 100 mg tablet of ritonavir twice daily for 5 days PO Nirmatrelvir-Ritonavir (Paxlovid) 300 mg (150 mg x 2)-100 mg tablets,dose pack (12 sources) Start: 03-14-2023 End: 04-22-2023 Nirmatrelvir-Ritonavir (Paxlovid) 300 mg (150 mg x 2)-100 mg tablets,dose pack Discontinued 0 PO .COMPLEX 30 0 March 14, 2023 1:00am April 22, 2023 9:36am take TWO 150 mg tablets of nirmatrelvir with ONE 100 mg tablet of ritonavir twice daily for 5 days PO Start: 03-14-2023 End: 04-22-2023 Nirmatrelvir-Ritonavir (Paxl ovid) 300 mg (150 mg x 2)-100 mg tablets,dose pack Discontinued 0 PO .COMPLEX March 14, 2023 1:00am April 22, 2023 9:36am take TWO 150 mg tablets of nirmatrelvir with ONE 100 mg tablet of ritonavir twice daily for 5 days PO Start: 03-14-2023 End: 04-22-2023 Nirmatrelvir-Ritonavir (Paxl ovid) 300 mg (150 mg x 2)-100 mg tablets,dose pack Discontinued 0 PO .COMPLEX March 14, 2023 12:00am April 22, 2023 8:36am take TWO 150 mg tablets of nirmatrelvir with ONE 100 mg tablet of ritonavir twice daily for 5 days PO nitrofurantoin, macrocrystals 25 mg / nitrofurantoin, monohydrate 75 mg oral capsule (20 sources) Nitrofuran Antibacterial Start: 11-09-2023 End: 11-16-2023 take 1 capsule by mouth every twelve hours at mealtime Nitrofurantoin Monohyd/M-Cryst (Macrobid) 100 mg capsule Discontinued 100 mg PO Q12H 14 7 0 November 09, 2023 1:45pm November 15, 2023 12:00am November 16, 2023 12:04am must administer with a meal/food Start: 07-12-2022 End: 07-19-2022 take 1 capsule by mouth every twelve hours at mealtime Nitrofurantoin Monohyd/M-Cryst 100 mg capsule Discontinued 1 NMA PO Q12H 14 7 0 July 12, 2022 12:00am July 18, 2022 12:00am July 19, 2022 12:04am administer with a meal/food; swallow whole; do not open, crush, dissolve , or chew [place] 4-Bsc-Jun-Fish Oil (20 sources) Start: 08-10-2018 End: 08-31-2021 [place] 6-Lff-Tga-Fish Oil Dis continued 1 EACH PO DAILY August 10, 2018 11:55am August 31, 2021 4:59pm Start: 08-10-2018 [place] 3-Dha-Ep a-Fish Oil Active 1 EACH PO DAILY August 10, 2018 11:55am Start: 08-10-2018 End: 08-31-2021 [place] 1-Ppz-Kcn-Fish Oil Dis continued 1 EACH PO DAILY August 09, 2018 11:00pm August 31, 2021 3:59pm Start: 08-10-2018 End: 08-31-2021 [place] 9-Ieh-Hsj-Fish Oil Dis continued 1 EACH PO DAILY August 10, 2018 12:00am August 31, 2021 4:59pm [place] 9-Esp-Kae-Fish Oil 1 EACH capsule (8 sources) Start: 08-10-2018 End: 08-31-2021 take 1 capsule by mouth once daily [place] 0-Rnx-Qns-Fish Oil 1 EACH capsule Discontinued 1 NMA PO DAILY August 10, 2018 12:00am August 31, 2021 4:59pm pantoprazole 40 mg delayed release oral tablet (20 sources) Proton Pump Inhibitor Start: 11-20-2021 End: 07-21-2023 take 1 tablet by mouth twice daily Pantoprazole 40 mg tablet,delayed release (DR/EC) Discontinued 40 mg PO TWICE A DAY 180 October 25, 2022 1:05pm July 21, 2023 10:20am Start: 10-30-2021 Pantoprazole S odium 40 MG Oral Tablet Delayed Release Quantity: 30 Refills: 0 Ordered: 30-Oct-2021 DO Start : 30-Oct-2021 Complete Start: 10-30-2021 End: 11-20-2021 take 1 tablet by mouth once daily Pantoprazole 40 mg tablet,delayed release (DR/EC) Discontinued 40 mg PO DAILY 30 3 October 30, 2021 12:00am November 20, 2021 12:48pm Start: 09-29-2020 take 1 tablet by leonie once daily Pantoprazole Sodium 20 MG Oral Tablet Delayed Release TAKE 1 TABLET BY MOUTH EVERY DAY Quantity: 90 Refills: 2 Ordered: 15-Apr-2021 Morgan Lanier MD Start : 29-Sep-2020 Active phenazopyridine hydrochloride 100 mg oral tablet (18 sources) Start: 11-09-2023 End: 12-17-2023 take 1 tablet by mouth three times daily as needed for pain Phenazopyridine (Pyridium) 100 mg tablet Discontinued 100 mg PO THREE TIMES A DAY as needed for pain 7 0 November 09, 2023 12:00am December 17, 2023 12:57pm Start: 10-20-2013 PYRIDIUM TABS as needed PHENAZOPYRIDINE HCL TABS [id number] Fabián Ruiz DO Start: 10-20-2013 End: 05-31-2016 PYRIDIUM TABS as needed 2013 PHENAZOPYRIDINE HCL TABS [id number] Iris Alexander Start: 10-20-2013 End: 05-31-2016 PYRIDIUM TABS as needed 2013 PHENAZOPYRIDINE HCL TABS [id number] Iris Alexander Start: 10-20-2013 PYRIDIUM TABS as needed PHENAZOPYRIDINE HCL TABS [id number] Fabián Steel Sara microencapsulated potassium chloride 20 meq extended release oral tablet (20 sources) Start: 06-25-2022 End: 04-13-2024 take 1 tablet by mouth once daily Potassium Chloride 20 mEq tablet,ER particles/crystals Discontinued 0 .ROUTE .COMPLEX 90 0 January 14, 2024 4:55pm April 13, 2024 3:06pm TAKE 1 TABLET BY MOUTH DAY Start: 12-26-2021 Potassium Chlo ride Jessica ER 20 MEQ Oral Tablet Extended Release Quantity: 90 Refills: 0 Ordered: 26-Mar-2022 DO Start : 26-Dec-2021 Complete Start: 12-26-2021 End: 06-25-2022 take 1 tablet by mouth once daily Potassium Chloride 20 mEq tablet extended release Discontinued 20 meq PO DAILY 90 1 December 26, 2021 12:00am June 25, 2022 10:51am Potassium Chlori de ER 10 MEQ Oral Capsule Extended Release Quantity: 0 Refills: 0 Ordered: 25-Jun-2022 DO Active predniSONE 10 mg oral tablet (20 sources) Start: 06-29-2024 End: 09-20-2024 Prednisone 10 mg tablet Discontinued 0 .Route .COMPLEX 21 0 June 29, 2024 12:00am Dona 23rd, 2025 5:38pm 6 tabs orally daily x 1 day then 5 tabs x 1 day then 4 tabs x 1 day then 3 tabs x 1 day then 2 tabs x 1 day then 1 tab x 1 day Start: 01-07-2024 End: 01-19-2024 Prednisone 10 mg tablet Disc ontinued 10 mg PO daily 30 12 0 January 07, 2024 12:00am January 18, 2024 12:00am January 19, 2024 12:08am Unspecified contact dermatitis, unspecified cause Take 4 tabs once daily days 1-3 3 tabs once daily days 4-6 2 tabs once daily days 7-9 and 1 tab once daily days 10-12. Start: 08-31-2021 predniSONE 10 MG Oral Tablet PLEASE SEE ATTACHED FOR DETAILED DIRECTIONS Quantity: 30 Refills: 0 Ordered: 31-Aug-2021 DO Start : 31-Aug-2021 Complete Start: 08-31-2021 End: 09-12-2021 Prednisone 10 mg tablet Disc ontinued 10 mg PO daily 30 12 0 August 31, 2021 12:00am September 11, 2021 12:00am September 12, 2021 12:03am Unspecified contact dermatitis, unspecified cause Take 4 tabs once daily days 1-3 3 tabs once daily days 4-6 2 tabs once daily days 7-9 and 1 tab once daily days 10-12. Start: 12-11-2018 End: 12-25-2018 Prednisone 10 mg tablet Disc ontinued 10 mg PO daily 30 12 0 December 11, 2018 12:00am December 22, 2018 12:00am December 25, 2018 12:08am Unspecified contact dermatitis, unspecified cause Take 4 tabs once daily days 1-3 3 tabs once daily days 4-6 2 tabs once daily days 7-9 and 1 tab once daily days 10-12. Start: 06-14-2016 End: 06-19-2016 take 3 tablets by mouth once daily PREDNISONE 20 MG TABS Take 3 tablets by mouth daily for 5 days. PREDNISONE [id number] Vignesh Terrazas Start: 05-21-2016 End: 09-18-2016 PREDNISONE 10 MG TABS Two ta bs daily for one week, then one tab daily for one week, then 1/2 tab daily PREDNISONE [id number] Iris Alexander rizatriptan 10 mg oral tablet (20 sources) Serotonin-1b and Serotonin-1d Receptor Agonist Start: 06-25-2022 End: 08-26-2023 take 1 tablet by mouth every two hours as needed for headache, then take 3 tablets by mouth once daily as needed for headache Rizatriptan 10 mg tablet Discontinued 10 mg PO .COMPLEX 9 5 April 22, 2023 9:33am August 26, 2023 8:29am migraine headache Take 1 tablet orally every two hours as needed for headache up to three tablets per day sucralfate 1000 mg oral tablet (20 sources) Aluminum Complex Start: 07-21-2023 End: 08-12-2023 take 1 tablet by mouth once at bedtime Sucralfate 1 gram tablet Discontinued 1 g PO before meals and at bedtime 56 1 July 21, 2023 12:00am August 12, 2023 10:47am Take an hour before meals and at bedtime Start: 11-12-2021 Sucralfate 1 G M Oral Tablet Quantity: 56 Refills: 0 Ordered: 13-Nov-2021 DO Start : 12-Nov-2021 Complete Start: 11-02-2021 End: 12-26-2021 take 1 tablet by mouth four times daily 1 hour(s) before bedtime Sucralfate 1 gram tablet Discontinued 1 g PO 4 TIMES DAILY 56 0 November 12, 2021 12:00am December 26, 2021 1:05pm 1 hour before meals and at bedtime sulfacetamide sodium 100 mg/ml ophthalmic solution (20 sources) Sulfonamide Antibacterial Start: 01-23-2018 End: 01-30-2018 Sulfacetamide Sodium (Bleph-10) 10 % drops Discontinued 1 NMA OPHTHALMIC Q4H 15 7 0 January 23, 2018 12:00am January 29, 2018 12:00am January 30, 2018 12:10am Start: 01-23-2018 End: 01-30-2018 Sulfacetamide Sodium (Bleph- 10) 10 % drops Discontinued 1 DRP OPHTHALMIC Q4H 15 7 January 23, 2018 12:00am January 30, 2018 12:10am SUMAtriptan 50 mg oral tablet (20 sources) Serotonin-1b and Serotonin-1d Receptor Agonist Start: 12-26-2021 End: 06-25-2022 take 1 tablet by mouth once as needed for headache Sumatriptan Succinate 50 mg tablet Discontinued 50 mg PO ONCE as needed for migraine headache December 26, 2021 1:05pm June 25, 2022 1:10pm Start: 11-08-2021 End: 12-26-2021 take 1 tablet by mouth twice daily Sumatriptan Succinate 50 mg tablet Discontinued 50 mg PO TWICE A DAY November 08, 2021 12:00am December 26, 2021 1:05pm Start: 07-09-2021 SUMAtriptan Henderson ccinate 25 MG Oral Tablet Quantity: 9 Refills: 0 Ordered: 09-Jul-2021 DO Start : 09-Jul-2021 Complete Start: 07-09-2021 take 1 tablet by leonie th every two hours, then take 2 tablets by mouth every twenty-four hours SUMAtriptan Succinate 50 MG Oral Tablet Take 1 tablet at onset of headache/migraine. You can take another tablet after 2 hours. No more than 2 tablets in 24 hours. Quantity: 8 Refills: 5 Ordered: 02-Oct-2021 Pawan Khan MD Start : 09-Jul-2021 Active Start: 07-09-2021 take 1 tablet by leonie th every two hours as needed, then take 8 tablets by mouth once daily as needed SUMAtriptan Succinate 25 MG Oral Tablet TAKE 1 TABLET EVERY 2 HOURS NEEDED FOR MIGRAINE. MAXIMUM 8 TABLETS DAILY. Quantity: 9 Refills: 5 Ordered: 09-Jul-2021 Erich CE-STRATIGRAPHY TEACHER, Lung Start : 09-Jul-2021 Active topiramate 100 mg oral tablet (20 sources) Start: 12-26-2021 End: 06-25-2022 take 1 tablet by mouth twice daily Topiramate 100 mg tablet Discontinued 100 mg PO TWICE A DAY December 26, 2021 12:00am June 25, 2022 1:10pm Start: 12-18-2021 Topiramate 100 MG Oral Tablet Quantity: 60 Refills: 0 Ordered: 14-Jun-2022 DO Start : 18-Dec-2021 Complete Start: 10-02-2021 Topiramate 25 MG Oral Tablet 1st week: take 3 tablets (75 mg) twice daily. Thereafter: take 4 tablets (100 mg) twice daily Quantity: 120 Refills: 5 Ordered: 17-Dec-2021 Pawan Khan MD Start : 02-Oct-2021 Active Start: 10-02-2021 Topiramate 25 MG Oral Tablet 1st week: 1 tablet daily. 2nd week - 1 tablet BID; 3rd week - 1 tablet morning & 2 tablets nightly; thereafter - 2 tablets BID Quantity: 120 Refills: 5 Ordered: 02-Oct-2021 Pawan Khan MD Start : 02-Oct-2021 Active ubrogepant 50 mg oral tablet (16 sources) Start: 04-22-2023 End: 06-30-2024 take 1 tablet by mouth once daily as needed for headache Ubrogepant (Ubrelvy) 50 mg tablet Discontinued 50 mg PO DAILY as needed for headache 16 April 22, 2023 1:00am August 26, 2023 8:28am divalproex sodium 250 mg delayed release oral tablet (20 sources) Mood Stabilizer, Anti-epilepti c Agent Start: 06-25-2022 End: 04-22-2024 take 1 tablet by mouth at bedtime Divalproex 250 mg tablet,delayed release (DR/EC) Discontinued 250 mg PO AT BEDTIME 30 August 26, 2023 8:27am April 22, 2024 9:41am Depakote 250 MG Oral Tablet Delayed Release Quantity: 0 Refills: 0 Ordered: 25-Jun-2022 DO Active Vit A-Vit C-Vit E-Gpzx-Vaxgk r (20 sources) Start: 06-06-2021 End: 08-31-2021 Vit A-Vit C-Vit N-Uajl-Yobnx r Discontinued TABLET PO June 06, 2021 2:26pm August 31, 2021 4:59pm Start: 06-06-2021 Vit A-Vit C-Vi t L-Veok-Wgrtmj Active TABLET PO June 06, 2021 2:26pm Start: 06-06-2021 End: 08-31-2021 Vit A-Vit C-Vit B-Rkaj-Logiv r Discontinued TABLET PO June 06, 2021 12:00am August 31, 2021 3:59pm Start: 06-06-2021 End: 08-31-2021 Vit A-Vit C-Vit J-Swkw-Bgoik r Discontinued TABLET PO June 06, 2021 1:00am August 31, 2021 4:59pm Vit A-Vit C-Vit X-Ioqk-Dmicw r 7,160-113-100 levn-hb-epel tablet (8 sources) Start: 06-06-2021 End: 08-31-2021 Vit A-Vit C-Vit K-Fmln-Bviib r 7,160-113-100 yrmp-lp-dbsf tablet Discontinued {tbl} PO June 06, 2021 1:00am August 31, 2021 4:59pm Vitamin B Complex (20 sources) Start: 08-10-2018 End: 08-31-2021 Vitamin B Complex Discontinu ed 1 EACH PO DAILY August 10, 2018 11:55am August 31, 2021 4:59pm Start: 08-10-2018 Vitamin B Comp patricia Active 1 EACH PO DAILY August 10, 2018 11:55am Start: 08-10-2018 End: 08-31-2021 Vitamin B Complex Discontinu ed 1 EACH PO DAILY August 09, 2018 11:00pm August 31, 2021 3:59pm Start: 08-10-2018 End: 08-31-2021 Vitamin B Complex Discontinu ed 1 EACH PO DAILY August 10, 2018 12:00am August 31, 2021 4:59pm Start: 02-08-2015 End: 01-23-2018 Vitamin B Complex Discontinu ed 1 EACH PO DAILY February 08, 2015 3:31pm January 23, 2018 5:49pm Start: 02-08-2015 End: 01-23-2018 Vitamin B Complex Discontinu ed 1 EACH PO DAILY February 08, 2015 12:00am January 23, 2018 4:49pm Start: 02-08-2015 End: 01-23-2018 Vitamin B Complex Discontinu ed 1 EACH PO DAILY February 08, 2015 1:00am January 23, 2018 5:49pm Vitamin B Complex 1 EACH capsule (16 sources) Start: 08-10-2018 End: 08-31-2021 Vitamin B Complex 1 EACH cap jacquie Discontinued 1 NMA PO DAILY August 10, 2018 12:00am August 31, 2021 4:59pm Start: 02-08-2015 End: 01-23-2018 Vitamin B Complex 1 EACH cap jacquie Discontinued 1 NMA PO DAILY February 08, 2015 1:00am January 23, 2018 5:49pm Problems Active Problems Problem Classification Problem Date Documented Da te Episodic/Chronic Allergic reactions (20 sources) Irritant contact dermatitis due to plant; Translations: [Irritant contact dermatitis due to plants, except food] Episodic Anxiety disorders (20 sources) Mixed anxiety and depressive disorder; Translations: [Anxiety disorder, unspecified] Chronic Asthma (20 sources) Asthma; Translations: [Unspecified asthma, uncomplicated] 11-08-2021 Chronic Comment on above: IN THE PAST/RARE USE OF INHALER Blindness and vision defects (20 sources) Visual alteration; Translations: [Unspecified visual loss] 05-03-2021 Chronic Blindness and vision defects (9 sources) Visual disturbance; Translations: [Unspecified visual disturbance] Episodic Conditions associated with dizziness or vertigo (20 sources) Dizziness; Translations: [Dizziness and giddiness] Episodic Deficiency and other anemia (20 sources) Anemia; Translations: [Anemia, unspecified] 10-30-2021 Episodic Comment on above: CURRENT Diseases of white blood cells (20 sources) Leukocytosis; Translations: [Elevated white blood cell count, unspecified] Chronic Esophageal disorders (20 sources) Gastroesophageal reflux disease without esophagitis; Translations: [Esophageal reflux] Chronic Fever of unknown origin (8 sources) Fever; Translations: [Fever, unspecified] 01-14-2024 Episodic Fluid and electrolyte disorders (20 sources) Hypokalemia; Translations: [Hypokalemia] Episodic Genitourinary symptoms and ill-defined conditions (20 sources) Dysuria; Translations: [Dysuria] Episodic Headache; including migraine (20 sources) Refractory migraine with aura; Translations: [Migraine with aura, with intractable migraine, so stated, with status migrainosus] Chronic Comment on above: ON MED Headache; including migraine (20 sources) Headache; Translations: [Headache] Episodic Immunizations and screening for infectious disease (20 sources) Patient encounter status; Translations: [Encounter for screening for COVID-19] Episodic Menopausal disorders (20 sources) Postmenopausal bleeding; Translations: [Postmenopausal bleeding] 09-11-2022 Chronic Mood disorders (20 sources) Seasonal affective disorder; Translations: [Other recurrent depressive disorders] Chronic Nausea and vomiting (8 sources) Vomiting; Translations: [Vomiting, unspecified] 01-14-2024 Episodic Open wounds of head; neck; and trunk (20 sources) Laceration of forehead; Translations: [Laceration without foreign body of other part of head, initial encounter] 06-14-2021 Episodic Osteoarthritis (17 sources) Arthritis; Translations: [Arthropathy, unspecified, site unspecified] Chronic Other aftercare (1 source) Taking high risk medication; Translations: [Other half-way (current) drug therapy] 06-30-2024 Episodic Other connective tissue disease (4 sources) Fibromyalgia; Translations: [Fibromyalgia] Episodic Other connective tissue disease (9 sources) Pain in lower limb; Translations: [Pain in limb] Episodic Other connective tissue disease (17 sources) Pain in calf; Translations: [Pain in unspecified lower leg] 11-18-2022 Episodic Other connective tissue disease (4 sources) Pain in unspecified lower leg; Translations: [Pain in limb] 11-18-2022 Episodic Other eye disorders (20 sources) Disorder of eye region; Translations: [Unspecified disorder of eye and adnexa] 09-19-2021 Episodic Other eye disorders (10 sources) Unspecified disorder of eye and adnexa; Translations: [Disorder of eye, unspecified] Episodic Other gastrointestinal disorders (4 sources) History of gastroesophageal reflux disease; Translations: [Personal history of other diseases of the digestive system] Episodic Other gastrointestinal disorders (20 sources) Finding of abdomen; Translations: [Other specified symptoms and signs involving the digestive system and abdomen] 09-05-2021 Episodic Other gastrointestinal disorders (14 sources) Other specified symptoms and signs involving the digestive system and abdomen; Translations: [Other symptoms involving abdomen and pelvis] Episodic Other gastrointestinal disorders (20 sources) Dysphagia; Translations: [Dysphagia, unspecified] 10-30-2021 Episodic Other gastrointestinal disorders (12 sources) Dysphagia, unspecified; Translations: [Dysphagia, unspecified] Episodic Other gastrointestinal disorders (12 sources) Swallowing finding; Translations: [Dysphagia, unspecified] 06-11-2023 Episodic Other inflammatory condition of skin (4 sources) Lupus erythematosus; Translations: [Discoid lupus erythematosus] Chronic Other injuries and conditions due to external causes (20 sources) Closed injury of head; Translations: [Unspecified injury of head, initial encounter] 06-14-2021 Episodic Other lower respiratory disease (9 sources) Chronic cough; Translations: [Chronic cough] Onset: 7 06-14-2016 Episodic Other lower respiratory disease (20 sources) Dyspnea on exertion; Translations: [Dyspnea, unspecified] 09-05-2021 Episodic Other lower respiratory disease (2 sources) Dyspnea, unspecified; Translations: [Other respiratory abnormalities] Episodic Other lower respiratory disease (6 sources) Other forms of dyspnea; Translations: [Other respiratory abnormalities] Episodic Other nervous system disorders (12 sources) Numbness of tongue; Translations: [Disturbance of skin sensation] Episodic Other nervous system disorders (20 sources) Paresthesia; Translations: [Disturbance of skin sensation] 05-03-2021 Episodic Other nervous system disorders (9 sources) Paresthesia of hand ; Translations: [Disturbance of skin sensation] Episodic Other non-traumatic joint disorders (1 source) Other specified arthritis, unspecified ankle and foot; Translations: [Other specified arthritis, unspecified ankle and foot] Onset: Chronic Other screening for suspected conditions (not mental disorders or infectious disease) (1 source) Encounter for screening mammogram for malignant neoplasm of breast; Translations: [Encounter for screening mammogram for malignant neoplasm of breast] Onset: Episodic Other skin disorders (20 sources) Eruption; Translations: [Rash and other nonspecific skin eruption] 10-30-2021 Episodic Other skin disorders (20 sources) Loss of hair; Translations: [Nonscarring hair loss, unspecified] 03-27-2022 Episodic Other skin disorders (20 sources) Nonscarring hair loss, unspecified; Translations: [Alopecia, unspecified] Episodic Other upper respiratory disease (20 sources) Respiratory tract congestion; Translations: [Nasal congestion] 10-30-2021 Episodic Other upper respiratory infections (20 sources) Acute sinusitis; Translations: [Acute sinusitis, unspecified] 04-02-2022 Episodic Residual codes; unclassified (9 sources) Edema; Translations: [Edema, unspecified] Onset: 7 06-14-2016 Episodic Residual codes; unclassified (20 sources) Past history of procedure; Translations: [Other specified postprocedural states] 10-30-2021 Episodic Residual codes; unclassified (20 sources) History of colonoscopy; Translations: [Other specified postprocedural states] 06-06-2021 Episodic Comment on above: 2019 Residual codes; unclassified (20 sources) Early satiety; Translations: [Early satiety] 09-05-2021 Episodic Residual codes; unclassified (8 sources) Early satiety; Translations: [Early satiety] Episodic Retinal detachments; defects; vascular occlusion; and retinopathy (9 sources) Degenerative disorder of macula ; Translations: [Unspecified macular degeneration] Onset: 5 06-03-2014 Chronic Spondylosis; intervertebral disc disorders; other back problems (9 sources) Backache; Translations: [Backache, unspecified] Episodic Sprains and strains (20 sources) Rupture of plantaris tendon; Translations: [Strain of other specified muscles and tendons at ankle and foot level, unspecified foot, initial encounter] 11-18-2022 Episodic Superficial injury; contusion (20 sources) Blister of foot; Translations: [Blister (nonthermal), unspecified foot, initial encounter] 10-30-2021 Episodic Systemic lupus erythematosus and connective tissue disorders (20 sources) Systemic lupus erythematosus; Translations: [Systemic lupus erythematosus] Onset: 4 10-20-2013 Chronic Thyroid disorders (20 sources) Hypothyroidism; Translations: [Hypothyroidism, unspecified] Onset: 4 10-20-2013 Chronic Unclassified (2 sources) Screening for malignant neoplasm of breast ; Translations: [Other specified health status] Onset: 4 12-30-2013 Unclassified (1 source) Cough, unspecified; Translations: [Cough, unspecified] Onset: Urinary tract infections (14 sources) Urinary tract infection, site not specified; Translations: [Urinary tract infection, site not specified] 07-12-2022 Episodic Viral infection (20 sources) Herpes zoster; Translations: [Zoster without complications] 10-30-2021 Episodic Past or Other Problems Problem Classification Problem Date Documented Da te Episodic/Chronic Diabetes mellitus without complication (1 source) Hyperglycemia, unspecified; Translations: [Hyperglycemia, unspecified] Onset: 05-17-2024 Episodic Other aftercare (4 sources) Other technician terminal and repeater (current) drug therapy; Translations: [Other technician terminal and repeater (current) drug therapy] Onset: 06-03-2014 Resolved: 06-06-2014 06-06-2014 Episodic Other nervous system disorders (1 source) Anesthesia of skin; Translations: [Anesthesia of skin] Onset: 06-25-2022 Episodic Other nervous system disorders (1 source) Paresthesia of skin; Translations: [Paresthesia of skin] Onset: 06-25-2022 Episodic Unclassified (6 sources) Long-term drug therapy; Translations: [Other half-way (current) drug therapy] Onset: 06-03-2014 Resolved: 06-06-2014 06-06-2014 Unclassified (20 sources) history of cystoscopy/dilation 10-30-2021 Unclassified (3 sources) Onset: 02-04-2024 Resolved: 11-03-2024 02-04-2024 Results Test Name Value Interpretation Reference Range Facility MR/PAT.[facility] 01-12-2025 MR/[facility] Medical Records Department [address] [place] [address] PAT - Anesthesia 01/12/25 1537 MR#: [id number] Acct: [id number] Name: CHASITY ARIAS Rep #: [id number] : 1965 59 From: Zheng Curran MD PCP: Dr. Fabián Ruiz, DO Status:PRE SDC Y Race: C Location: [place] Pre-Assessment Diagnosis/Proposed Procedure Planned Operative Procedure(s): CSCOPE Anesthesia History Anesthesia History - tray filler: Anesthesia History - tray filler Hx Hospitalization No 01/12/25 15:10 Any Problems With Anesthesia No 01/12/25 15:10 Cholinesterase deficiency No 01/12/25 15:10 You/Your Family Experience No 01/12/25 15:10 fever (hyperthermia) with Relationship Recent Exposure to Contagious No 08/14/23 12:21 Disease Does patient have nerve No 01/12/25 15:10 stimulator Patient instructed to have device shut off --Does patient have Pacemaker or ICD? When Was Last Pacemaker Check QUESTION #4 FULL TEXT: You/Your Family Experience fever (hyperthermia) with Anesthesia Last Oral Intake Last Oral intake: Last Oral Intake NPO since Meds taken in AM with sips of water? Meds patient instructed to take am of surgery PONV PONV - tray filler: PONV - tray filler Female Yes 01/12/25 15:10 HX of Motion Sickness Yes 01/12/25 15:10 HX of N/V After Surgery No 01/12/25 15:10 Non-Smoker Yes 01/12/25 15:10 Duration of Surgery greater No 01/12/25 15:10 than 60 minutes Number of Risk Factors 3 01/12/25 15:10 PONV Score Moderate Risk 01/12/25 15:10 Height Weight Height Weight: Anesthesia: Height Weight Height 5 ft 2 in 01/10/25 15:19 Respiratory Assessment Respiratory Assessment - tray filler: Respiratory Tract Infection Hx - tray filler Hx Respiratory Tract Infection No 01/12/25 15:10 STOP Sleep Apnea STOP Sleep Apnea - tray filler: STOP Sleep Apnea - tray filler Hx Hypertension No 01/12/25 15:10 Hx Sleep Apnea No 01/12/25 15:10 CPAP No 08/14/23 13:47 BIPAP Do you snore loudly (louder No 01/12/25 15:10 than talking or can be heard Do you often feel tired/ No 01/12/25 15:10 fatigued/ sleepy during daytime? Has anyone observed you stop No 01/12/25 15:10 breathing during sleep? STOP Results Negative 01/12/25 15:10 QUESTION #5 FULL TEXT : Do you snore loudly (louder than talking or can be heard through closed doors)? 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 Specify any problems Hx of Preganancy in last 3 N/A 01/12/25 15:10 Months Nurse Filling Out Transfusion NBUCHER 01/12/25 15:10 Questions: Date: 01/12/25 01/12/25 15:10 Time: 15:11 01/12/25 15:10 Patient unable to answer at this time (ie. confused, unrespo /Reproduction History /Reproductive History - tray filler: /Reproductive Hx- tray filler Hx Now No 01/12/25 15:10 Gestational Age (in weeks): EDC: Hx Hx Para Hx Section SAB No 01/12/25 15:10 PFSH Medical History (Updated 01/12/25 @ 15:16 by Nya Martinez) Anxiety Sjogren syndrome Restless legs Blood in stool Travel advice encounter Difficulty swallowing Nausea History of edema History of stress test Health care maintenance Swallowing problem Post-menopausal Alcohol use Lupus Injury of head and neck Hair loss Hypothyroidism Seasonal affective disorder Reyez's esophagus Hypokalemia Wears glasses Thyroid disease Arthritis Migraine headache Gastric reflux Non-smoker History of echocardiogram History of irregular heartbeat Anxiety and depression Headache Eye disorder Vertigo Heart murmur Anemia Asthma Annette's thyroiditis Systemic lupus erythematosus Home Medications ???Medication ???Instructions ???Recorded ???Last Taken ???Type albuterol sulfate 90 mcg/actuation 2 puff inhalation Q6H PRN Unknown Rx aerosol inhaler shortness of breath or wheezing #8.5 grams omep (more content not included)... Normal [facility] Surgery Visit Reporton 01-10 Surgery Visit Report [facility] [address] [place] [address] OFFICE VISIT Date of Service: 01/10/25 MR#: [id number] Acct: [id number] Name: CHASITY ARIAS Rep #: [id number] : 1965 Provider: Dr. Andra dahl MD Age/Sex: 59/F Location: [facility] Status: Signed Intake Vital Signs 06/29/24 10:02 01/10/25 15:19 Height 5 ft 2 in 5 ft 2 in Weight: 133 lb 4 oz BMI 24.3 BP 120/82 H Blood Pressure Location Rt brachial Position Sitting Respiration 18 Pulse 75 Pulse Source Monitor Temp 97.5 F L Temp Source Temporal Pulse Oximetry (%) 99 Oxygen Delivery Method room air Intake Visit Reasons: BLOOD IN STOOL Chief Complaint: Blood in stool Private Security Guard Required: No Is patient in pain?: No Allergies No Known Allergies Allergy (Verified 01/10/25 15:21) Medications ???Medication ???Instructions ???Recorded ???Confirmed ???Type albuterol sulfate 90 mcg/actuation 2 puff inhalation Q6H PRN 01/10/25 Rx aerosol inhaler shortness of breath or wheezing #8.5 grams omeprazole 40 mg capsule,delayed 40 mg PO QDAY #90 caps 12/17/23 Rx release levothyroxine 75 mcg tablet See Rx Instructions .Route 4 01/10/25 Rx .COMPLEX #90 tabs ondansetron HCl 8 mg tablet 8 mg PO Q8H PRN nausea and 4 01/10/25 Rx vomiting #14 tabs divalproex 250 mg tablet,delayed 250 mg PO QHS #30 tabs 04/22/24 Rx release folic acid 1 mg tablet 1 mg PO DAILY #30 tabs 04/22/24 Rx ondansetron HCl 4 mg tablet 4 mg PO TID PRN nausea and 5 01/10/25 Rx vomiting #90 tabs rimegepant 75 mg disintegrating 75 mg PO DAILY PRN migraine 01/10/25 Rx tablet (Nurtec ODT) headache #16 tabs omega-3 fatty acids-fish oil 300 cap PO 09/20/24 01/10/25 History mg-500 mg capsule (Fish Oil) aspirin 81 mg chewable tablet 81 mg PO QDAY 01/10/25 01/10/25 Hi story belimumab 200 mg/mL subcutaneous 200 mg subcut QWEEK 01/10/2501/10 History auto-injector (Benlysta) citalopram 10 mg tablet 10 mg PO QDAY 01/10/25 01/10/25 Hi story coenzyme Q10 100 mg capsule 100 mg PO QDAY 01/10/25 01/10/25 H istory famotidine 20 mg tablet (Pepcid) 20 mg PO QDAY PRN 01/10/25 5 History hydroxychloroquine 200 mg tablet 200 mg PO QDAY 01/10/25 01/10/25 H istory (Plaquenil) magnesium tab PO DAILY 01/10/25 01/10/25 His tory potassium chloride 20 mEq 40 meq .Route .COMPLEX 01/10/25 H istory tablet,extended release(part/cryst) vitamin E (dl, acetate) 450 mg 450 mg PO QDAY 01/10/25 01/10/25 H istory (1,000 unit) capsule Have you fallen in the past year?: No [facility] Medical History (Updated 01/11/25 @ 14:[address] Andra Bustos MD) Blood in stool Travel advice encounter Difficulty swallowing Nausea History of edema History of stress test Health care maintenance Swallowing problem Post-menopausal Alcohol use Lupus Injury of head and neck Hair loss Hypothyroidism Seasonal affective disorder Reyez's esophagus Hypokalemia Wears glasses Thyroid disease Arthritis Migraine headache Gastric reflux Non-smoker History of echocardiogram History of irregular heartbeat Anxiety and depression Headache Eye disorder Vertigo Heart murmur Anemia Asthma Annette's thyroiditis Systemic lupus erythematosus Surgical History History of esophagogastroduodenoscopy (EGD) History of endometrial ablation History of colonoscopy History of bilateral carpal tunnel release History of dilatation and curettage History of endoscopy History of tubal ligation History of tonsillectomy and adenoidectomy history of cystoscopy/dilation Family History Father Heart disease Hypertension Thyroid disorder Arthritis Brother Hypertension Thyroid disorder High cholesterol White matter disease Mother Cancer CLL Arthritis Osteoporosis Grandmother Bone cancer Thyroid disorder Grandfather Colon cancer Aunt Lupus Breast cancer Social History household members: spouse Smoking Status: Never smoker second hand exposure: No alcohol intake: current alcohol intake frequency: a few times a week Alcohol type: beer and wine details: holiday substance use type: does not use caffeine: No ( ) what type of physical activity do you participate in: walking, bicycling and aerobics frequency: daily nathaniel/mu-ism: Druze seatbelt use: always HPI HPI HPI: 59-year-old female presents due to bright red blood per rectum. Patient last colonoscopy was in 2019 negative at that time recommended 10 years for follow-up. Pat (more content not included)... Normal [facility] Absolute lymphocyte countOrd ered By: Morgan Lanier on 12-21-2024 Lymphocytes Auto (Unsp spec) [#/Vol] 1.53 10*3/uL 0.83-4.51 [facility] Absolute neutrophil countOrd ered By: Morgan Lanier on 12-21-2024 Neutrophils (Bld) [#/Vol] 1.4 10*3/uL Low 2.0-7.7 [facility] Anion gap in Serum or Plasma Ordered By: Morgan Lanier on 12-21-2024 Anion gap [Moles/Vol] 10 mmol/L 5-[address] [facility] Automated lymphocyte count a s percentage of total leukocytesOrdered By: Morgan Lanier on 12-21-2024 Lymphocytes/100 WBC Auto (Unsp spec) 43.7 % High 19-41 [facility] BUN/creatinine ratioOrdered By: Morgan Lanier on 12-21-2024 Urea nitrogen/Creatinine [Mass ratio] 13.3 mg/mg 10-20 [facility] Basophil percentageOrdered B y: Morgan Lanier on 12-21-2024 Basophils/100 WBC (Bld) 1.1 % High 0-1 [facility] Bilirubin, totalOrdered By: Morgan Lanier on 12-21-2024 Bilirubin [Mass/Vol] 0.66 mg/dL 0.00-1.30 [facility] CBC W/Diff, Automatedon 11-30 Absolute Lymph 1.53 X10 3/uL Normal 0.83-4.51 [facility] Comment on above: Performed By: #### L [id number], L400.0001, L501.6710, L500.2500, L100.0100 #### [facility] [address] [place], [address] Absolute Neut 1.4 X10 3/uL Low 2.0-7.7 [facility] Comment on above: Performed By: #### L [id number], L400.0001, L501.6710, L500.2500, L100.0100 #### [facility] [address] [place], [address] Basophils/100 WBC (Bld) 1.1 % High 0-1 [facility] Comment on above: Performed By: #### L [id number], L400.0001, L501.6710, L500.2500, L100.0100 #### [facility] [address] [place], [address] Eosinophils/100 WBC (Bld) 2.6 % Normal 0-5 [facility] Comment on above: Performed By: #### L [id number], L400.0001, L501.6710, L500.2500, L100.0100 #### [facility] [address] [place], [address] Erythrocyte distribution width (RBC) [Ratio] 13.2 % Normal 11.6-14.6 [facility] Comment on above: Performed By: #### L [id number], L400.0001, L501.6710, L500.2500, L100.0100 #### [facility] [address] [place], [address] Hematocrit (Bld) [Volume fraction] 33.9 % Low 37-47 [facility] Comment on above: Performed By: #### L [id number], L400.0001, L501.6710, L500.2500, L100.0100 #### [facility] [address] [place], [address] Hemoglobin (Bld) [Mass/Vol] 11.3 g/dL Low 12.0-15.0 [facility] Comment on above: Performed By: #### L [id number], L400.0001, L501.6710, L500.2500, L100.0100 #### [facility] [address] [place], [address] IG% 0.000 Normal 0.0-0.9 [facility] Comment on above: Result Comment: IG% - Immature Granulocytes (promyelocytes, myelocytes and metamyelocytes) > 1% indicates that a LEFT SHIFT is Present. Performed By: #### L [id number], L400.0001, L501.6710, L500.2500, L100.0100 #### [facility] [address] [place], [address] Lymphocytes/100 WBC (Bld) 43.7 % High 19-41 [facility] Comment on above: Performed By: #### L [id number], L400.0001, L501.6710, L500.2500, L100.0100 #### [facility] [address] [place], [address] MCH (RBC) [Entitic mass] 30.2 pg Normal 27.0-32.0 [facility] Comment on above: Performed By: #### L [id number], L400.0001, L501.6710, L500.2500, L100.0100 #### [facility] [address] [place], [address] MCHC (RBC) [Mass/Vol] 33.3 g/dL Normal 32-[address] [facility] Comment on above: Performed By: #### L [id number], L400.0001, L501.6710, L500.2500, L100.0100 #### [facility] [address] [place], [address] MCV (RBC) [Entitic vol] 90.6 fL Normal 81-99 [facility] Comment on above: Performed By: #### L [id number], L400.0001, L501.6710, L500.2500, L100.0100 #### [facility] [address] [place], [address] Monocytes/100 WBC (Bld) 13.4 % High 0-10 [facility] Comment on above: Performed By: #### L [id number], L400.0001, L501.6710, L500.2500, L100.0100 #### [facility] [address] [place], [address] Neutrophils/100 WBC (Bld) 39.2 % Low 47-70 [facility] Comment on above: Performed By: #### L [id number], L400.0001, L501.6710, L500.2500, L100.0100 #### [facility] [address] [place], [address] Nucleated RBC (Bld) [#/Vol] 0 10*3/uL Normal 0-5 [facility] Comment on above: Performed By: #### L [id number], L400.0001, L501.6710, L500.2500, L100.0100 #### [facility] [address] [place], [address] Platelet mean volume (Bld) [Entitic vol] 12.3 fL High 6.2-12.0 [facility] Comment on above: Performed By: #### L [id number], L400.0001, L501.6710, L500.2500, L100.0100 #### [facility] [address] [place], [address] Platelets (Bld) [#/Vol] 212 10*3/uL Normal 150-450 [facility] Comment on above: Performed By: #### L [id number], L400.0001, L501.6710, L500.2500, L100.0100 #### [facility] [address] [place], [address] RBC (Bld) [#/Vol] 3.74 10*6/uL Low 4.2-5.4 [facility] Comment on above: Performed By: #### L [id number], L400.0001, L501.6710, L500.2500, L100.0100 #### [facility] [address] [place], [address] RDW SD 43.2 fl Normal 35.1-43.9 [facility] Comment on above: Performed By: #### L [id number], L400.0001, L501.6710, L500.2500, L100.0100 #### [facility] [address] [place], [address] WBC (Bld) [#/Vol] 3.5 10*3/uL Low 4.4-11.0 [facility] Comment on above: Performed By: #### L 501.9985, L400.0001, L501.6710, L500.2500, L100.0100 #### [facility] [address] [place], [address] CRPon 12-21-2024 C-REACTIVE PROT < 3.00 Normal 0.0-3.0 [facility] Comment on above: Performed By: #### L 501.9985, L400.0001, L501.6710, L500.2500, L100.0100 #### [facility] [address] [place], [address] Carbon dioxide, total [Moles /volume] in Central venous bloodOrdered By: Morgan Lanier on 12-21-2024 CO2 [Moles/Vol] 24.7 mmol/L 21.0-32.0 [facility] Chloride assayOrdered By: Akosua Lanier on 12-21-2024 Chloride [Moles/Vol] 99 mmol/L 98-108 [facility] Comprehensive Metabolic Prof ilon 12-21-2024 Albumin [Mass/Vol] 4.3 g/dL Normal 3.5-5.0 [facility] Comment on above: Performed By: #### L 501.9985, L400.0001, L501.6710, L500.2500, L100.0100 #### [facility] [address] [place], [address] Albumin/Globulin [Mass ratio] 1.7 {ratio} Normal 0.9-2.4 [facility] Comment on above: Performed By: #### L 501.9985, L400.0001, L501.6710, L500.2500, L100.0100 #### [facility] [address] [place], [address] ALK PHOS 46 U/L Normal 35-104 [facility] Comment on above: Performed By: #### L 501.9985, L400.0001, L501.6710, L500.2500, L100.0100 #### [facility] [address] [place], [address] ALT [Catalytic activity/Vol] 13 U/L Normal <=34 [facility] Comment on above: Performed By: #### L 501.9985, L400.0001, L501.6710, L500.2500, L100.0100 #### [facility] [address] [place], [address] AST [Catalytic activity/Vol] 21 U/L Normal <=31 [facility] Comment on above: Performed By: #### L 501.9985, L400.0001, L501.6710, L500.2500, L100.0100 #### [facility] [address] [place], [address] Bilirubin [Mass/Vol] 0.66 mg/dL Normal 0.00-1.30 [facility] Comment on above: Performed By: #### L 501.9985, L400.0001, L501.6710, L500.2500, L100.0100 #### [facility] [address] [place], [address] BUN/CRE 13.3 RATIO Normal 10-20 [facility] Comment on above: Performed By: #### L 501.9985, L400.0001, L501.6710, L500.2500, L100.0100 #### [facility] [address] [place], [address] Calcium [Mass/Vol] 9.5 mg/dL Normal 7.6-11.0 [facility] Comment on above: Performed By: #### L 501.9985, L400.0001, L501.6710, L500.2500, L100.0100 #### [facility] [address] [place], [address] Chloride [Moles/Vol] 99 mmol/L Normal 98-108 [facility] Comment on above: Performed By: #### L 501.9985, L400.0001, L501.6710, L500.2500, L100.0100 #### [facility] [address] [place], [address] CO2 [Moles/Vol] 24.7 mmol/L Normal 21.0-32.0 [facility] Comment on above: Performed By: #### L 501.9985, L400.0001, L501.6710, L500.2500, L100.0100 #### [facility] [address] [place], [address] Creatinine [Mass/Vol] 0.55 mg/dL Low 0.70-1.[address] [facility] Comment on above: Performed By: #### L 501.9985, L400.0001, L501.6710, L500.2500, L100.0100 #### [facility] [address] [place], [address] GAP 10 Normal 5-15 [facility] Comment on above: Performed By: #### L 501.9985, L400.0001, L501.6710, L500.2500, L100.0100 #### [facility] [address] [place], [address] GFR/1.73 sq M.predicted among non-blacks MDRD (S/P/Bld) [Vol rate/Area] 106 mL/min/{1.73_m2} Normal >60 [facility] Comment on above: Result Comment: mL/m in/1.73m2 CKD-EPI Creatinine Equation (2020) Performed By: #### L 501.9985, L400.0001, L501.6710, L500.2500, L100.0100 #### [facility] [address] [place], [address] Globulin (S) [Mass/Vol] 2.6 g/dL Normal 2.2-4.2 [facility] Comment on above: Performed By: #### L 501.9985, L400.0001, L501.6710, L500.2500, L100.0100 #### [facility] [address] [place], [address] Glucose [Mass/Vol] 84 mg/dL Normal 70-99 [facility] Comment on above: Performed By: #### L 501.9985, L400.0001, L501.6710, L500.2500, L100.0100 #### [facility] [address] [place], [address] Potassium [Moles/Vol] 4.2 mmol/L Normal 3.3-5.[address] [facility] Comment on above: Performed By: #### L 501.9985, L400.0001, L501.6710, L500.2500, L100.0100 #### [facility] [address] [place], [address] Sodium [Moles/Vol] 134 mmol/L Normal 133-145 [facility] Comment on above: Performed By: #### L 501.9985, L400.0001, L501.6710, L500.2500, L100.0100 #### [facility] [address] [place], [address] T PROT 6.9 g/dL Normal 5.9-8.4 [facility] Comment on above: Performed By: #### L 501.9985, L400.0001, L501.6710, L500.2500, L100.0100 #### [facility] [address] [place], [address] Urea nitrogen [Mass/Vol] 7 mg/dL Normal 4-19 [facility] Comment on above: Performed By: #### L 501.9985, L400.0001, L501.6710, L500.2500, L100.0100 #### [facility] [address] [place], [address] Eosinophil percentageOrdered By: Morgan Lanier on 12-21-2024 Eosinophils/100 WBC (Bld) 2.6 % 0-5 [facility] Erythrocyte distribution wid th ratioOrdered By: Morgan Lanier on 12-21-2024 Erythrocyte distribution width (RBC) [Ratio] 13.2 % 11.6-14.6 [facility] Erythrocyte distribution wid th standard deviationOrdered By: Morgan Lanier on 12-21-2024 Erythrocyte distribution width (RBC) [Ratio] 43.2 fl 35.1-43.9 [facility] Glomerular filtration rate ( GFR) estimation/1.73 sq m using serum, plasma, or whole bOrdered By: Morgan Lanier on 12-21-2024 GFR/1.73 sq M.predicted among non-blacks MDRD (S/P/Bld) [Vol rate/Area] 106 mL/min/{1.73_m2} >60 [facility] Comment on above: mL/min/1.73m2 CKD-EP I Creatinine Equation (2020) Hematocrit Auto (Bld) [Volum e fraction]Ordered By: Morgan Lanier on 12-21-2024 Hematocrit (Bld) [Volume fraction] 33.9 % Low 37-47 [facility] Hemoglobin measurementOrdere d By: Morgan Lainer on 12-21-2024 Hemoglobin (Bld) [Mass/Vol] 11.3 g/dL Low 12.0-15.0 [facility] Immature granulocytes/100 WB C Auto (Bld)Ordered By: Morgan Lanier on 12-21-2024 Immature granulocytes/100 WBC (Bld) 0.000 % 0.0-0.9 [facility] Comment on above: IG% - Immature Granu locytes (promyelocytes, myelocytes and metamyelocytes) > 1% indicates that a LEFT SHIFT is Present. Laboratory - Chemistry and C hemistry - challengeOrdered By: Morgan Lanier on 12-21-2024 AST [Catalytic activity/Vol] 21 U/L <32 [facility] MCV (mean corpuscular volume ) determinationOrdered By: Morgan Lanier on 12-21-2024 MCV (RBC) [Entitic vol] 90.6 fL 81-99 [facility] Mean corpuscular hemoglobin (MCH) determinationOrdered By: Morgan Lanier on 12-21-2024 MCH (RBC) [Entitic mass] 30.2 pg 27.0-32.0 [facility] Mean corpuscular hemoglobin concentration (MCHC) determinationOrdered By: Morgan Lanier on 12-21-2024 MCHC (RBC) [Mass/Vol] 33.3 g/dL 32-[address] [facility] Mean platelet volume determi nationOrdered By: Morgan Lanier on 12-21-2024 Platelet mean volume (Bld) [Entitic vol] 12.3 fL High 6.2-12.0 [facility] Monocyte percentageOrdered B y: Morgan Lanier on 12-21-2024 Monocytes/100 WBC (Bld) 13.4 % High 0-10 [facility] Neutrophil percentageOrdered By: Morgan Lanier on 12-21-2024 Neutrophils/100 WBC (Bld) 39.2 % Low 47-70 [facility] Nucleated red blood cell per centageOrdered By: Morgan Lanier on 12-21-2024 Nucleated RBC/100 WBC (Bld) [Ratio] 0 % 0-5 [facility] Platelet countOrdered By: Akosua Lanier on 12-21-2024 Platelets (Bld) [#/Vol] 212 10*3/uL 150-450 [facility] Potassium measurement (mass/ volume)Ordered By: Morgan Lanier on 12-21-2024 Potassium (Unsp spec) [Mass/Vol] 4.2 mmol/L 3.3-5.1 [facility] RBC Auto (Bld) [#/Vol]Ordere d By: Morgan Lanier on 12-21-2024 RBC (Bld) [#/Vol] 3.74 10*6/uL Low 4.2-5.4 [facility] Serum creatinine measurement (mass/volume)Ordered By: Morgan Lanier on 12-21-2024 Creatinine [Mass/Vol] 0.55 mg/dL Low 0.70-1.[address] [facility] Serum globulin measurementOr dered By: Morgan Lanier on 12-21-2024 Globulin (S) [Mass/Vol] 2.6 g/dL 2.2-4.2 [facility] Serum glucose measurement (m ass/volume)Ordered By: Morgan Lanier on 12-21-2024 Glucose [Mass/Vol] 84 mg/dL 70-99 [facility] Serum or plasma C reactive p rotein measurement (mass/volume)Ordered By: Morgan Lanier on 12-21-2024 CRP [Mass/Vol] mg/L 0.0-3.0 [facility] Serum or plasma alanine kulkarni otransferase (ALT) measurementOrdered By: Morgan Lanier on 12-21-2024 ALT [Catalytic activity/Vol] 13 U/L <35 [facility] Serum or plasma albumin nicole urement (mass/volume)Ordered By: Morgan Lanier on 12-21-2024 Albumin [Mass/Vol] 4.3 g/dL 3.5-5.0 [facility] Serum or plasma albumin/glob ulin mass ratioOrdered By: Morgan Lanier on 12-21-2024 Albumin/Globulin [Mass ratio] 1.7 {ratio} 0.9-2.4 [facility] Serum or plasma alkaline bobby sphatase measurementOrdered By: Morgan Lanier on 12-21-2024 ALP [Catalytic activity/Vol] 46 U/L 35-104 [facility] Serum or plasma calcium nicole urement (mass/volume)Ordered By: Morgan Lanier on 12-21-2024 Calcium [Mass/Vol] 9.5 mg/dL 7.6-11.0 [facility] Serum or plasma urea nitroge n measurement (mass/volume)Ordered By: Morgan Lanier on 12-21-2024 Urea nitrogen [Mass/Vol] 7 mg/dL 4-19 [facility] Sodium levelOrdered By: Morgan Lanier on 12-21-2024 Sodium [Moles/Vol] 134 mmol/L 133-145 [facility] Total proteinOrdered By: Morgan Lanier on 12-21-2024 Protein [Mass/Vol] 6.9 g/dL 5.9-8.4 [facility] White blood cell (WBC) count Ordered By: Morgan Lanier on 12-21-2024 WBC (Bld) [#/Vol] 3.5 10*3/uL Low 4.4-11.0 [facility] ASHLEY w/ Reflex Mult Confirmon 11-08-2024 ANTI-DNA (DS)AB TNP Normal [facility] Comment on above: Performed By: #### L 501.6710, L803.2200, L501.3620, L3100.5450 #### [facility] [address] [place], [address] ANTI-SS-A TNP Normal [facility] Comment on above: Performed By: #### L 501.6710, L803.2200, L501.3620, L3100.5450 #### [facility] [address] [place], [address] ANTI-SS-B TNP Normal [facility] Comment on above: Performed By: #### L 501.6710, L803.2200, L501.3620, L3100.5450 #### [facility] [address] [place], [address] Anti-Smooth Muscle ABSon ANTISMOOTH MUSC 6 Units Normal 0-19 [facility] Comment on above: Result Comment: Nega tive 0 - 19 Weak positive 20 - 30 Moderate to strong positive >30 Actin Antibodies are found in 52-85% of patients with autoimmune hepatitis or chronic active hepatitis and in 22% of patients with primary biliary cirrhosis. Performed at: [address] [id number] Construction Assistant: Espinoza Bhatia PhD, Phone: [phone] Performed By: #### L 501.9985, L400.0001, L501.6710, L500.2500, L100.0100 #### [facility] [address] [place], [address] CPK Total, Creatine Kinaseon 11-04-2024 CPK TOTAL 75 U/L Normal 24-195 [facility] Comment on above: Performed By: #### L 501.9985, L400.0001, L501.6710, L500.2500, L100.0100 #### [facility] [address] [place], [place], [id number] CRPon 11-04-2024 C-REACTIVE PROT < 3.00 Normal 0.0-3.0 [facility] Comment on above: Performed By: #### L 501.9985, L400.0001, L501.6710, L500.2500, L100.0100 #### [facility] [address] [place], [place], [id number] Serum DNA double strand anti body assay (units/volume)Ordered By: Morgan Lanier on 11-04-2024 DNA double strand Ab Qn (S) [facility] Comment on above: Test not performed Serum Scl-70 antibody assay (units/volume)Ordered By: Morgan Lanier on 11-04-2024 SCL-70 extractable nuclear Ab Qn (S) [facility] Comment on above: Test not performed Serum or plasma C reactive p rotein measurement (mass/volume)Ordered By: Morgan Lanier on 11-04-2024 CRP [Mass/Vol] mg/L 0.0-3.0 [facility] Serum or plasma actin IgG an tibody assay (units/volume)Ordered By: Morgan Lanier on 11-04-2024 Actin IgG Qn 6 Units 0-19 [facility] Comment on above: Negative 0 - 19 Weak positive 20 - 30 Moderate to strong positive >30 Actin Antibodies are found in 52-85% of patients with autoimmune hepatitis or chronic active hepatitis and in 22% of patients with primary biliary cirrhosis.Performed at: [address] [id number] Director: Espinoza Bhatia PhD, Phone: [phone] Serum or plasma creatine kin ase activityOrdered By: Morgan Lanier on 11-04-2024 CK [Catalytic activity/Vol] 75 U/L 24- [facility] Absolute lymphocyte countOrd ered By: Morgan Lanier on 10-26-2024 Lymphocytes Auto (Unsp spec) [#/Vol] 1.45 10*3/uL 0.83-4.51 [facility] Absolute neutrophil countOrd ered By: Morgan Lanier on 10-26-2024 Neutrophils (Bld) [#/Vol] 1.4 10*3/uL Low 2.0-7.7 [facility] Anion gap in Serum or Plasma Ordered By: Morgan Lanier on 10-26-2024 Anion gap [Moles/Vol] 12 mmol/L 5-[address] [facility] Automated lymphocyte count a s percentage of total leukocytesOrdered By: Morgan Lanier on 10-26-2024 Lymphocytes/100 WBC Auto (Unsp spec) 42.5 % High 19-41 [facility] BUN/creatinine ratioOrdered By: Morgan Lanier on 10-26-2024 Urea nitrogen/Creatinine [Mass ratio] 10.6 mg/mg 10-20 [facility] Basophil percentageOrdered B y: Morgan Lanier on 10-26-2024 Basophils/100 WBC (Bld) 1.2 % High 0-1 [facility] Bilirubin, totalOrdered By: Morgan Lanier on 10-26-2024 Bilirubin [Mass/Vol] 0.56 mg/dL 0.00-1.30 [facility] CBC W/Diff, Automatedon 09-29 Absolute Lymph 1.45 X10 3/uL Normal 0.83-4.51 [facility] Comment on above: Performed By: #### L 501.9985, L400.0001, L501.6710, L500.2500, L100.0100 #### [facility] [address] [place], [address] Absolute Neut 1.4 X10 3/uL Low 2.0-7.7 [facility] Comment on above: Performed By: #### L 501.9985, L400.0001, L501.6710, L500.2500, L100.0100 #### [facility] [address] [place], [address] Basophils/100 WBC (Bld) 1.2 % High 0-1 [facility] Comment on above: Performed By: #### L 501.9985, L400.0001, L501.6710, L500.2500, L100.0100 #### [facility] [address] [place], [address] Eosinophils/100 WBC (Bld) 3.5 % Normal 0-5 [facility] Comment on above: Performed By: #### L 501.9985, L400.0001, L501.6710, L500.2500, L100.0100 #### [facility] [address] [place], [address] Erythrocyte distribution width (RBC) [Ratio] 13.2 % Normal 11.6-14.6 [facility] Comment on above: Performed By: #### L 501.9985, L400.0001, L501.6710, L500.2500, L100.0100 #### [facility] [address] [place], [address] Hematocrit (Bld) [Volume fraction] 34.8 % Low 37-47 [facility] Comment on above: Performed By: #### L 501.9985, L400.0001, L501.6710, L500.2500, L100.0100 #### [facility] [address] [place], [address] Hemoglobin (Bld) [Mass/Vol] 11.6 g/dL Low 12.0-15.0 [facility] Comment on above: Performed By: #### L 501.9985, L400.0001, L501.6710, L500.2500, L100.0100 #### [facility] [address] [place], [address] IG% 0.300 Normal 0.0-0.9 [facility] Comment on above: Result Comment: IG% - Immature Granulocytes (promyelocytes, myelocytes and metamyelocytes) > 1% indicates that a LEFT SHIFT is Present. Performed By: #### L 501.9985, L400.0001, L501.6710, L500.2500, L100.0100 #### [facility] [address] [place], [address] Lymphocytes/100 WBC (Bld) 42.5 % High 19-41 [facility] Comment on above: Performed By: #### L 501.9985, L400.0001, L501.6710, L500.2500, L100.0100 #### [facility] [address] [place], [address] MCH (RBC) [Entitic mass] 30.5 pg Normal 27.0-32.0 [facility] Comment on above: Performed By: #### L 501.9985, L400.0001, L501.6710, L500.2500, L100.0100 #### [facility] [address] [place], [address] MCHC (RBC) [Mass/Vol] 33.3 g/dL Normal 32-[address] [facility] Comment on above: Performed By: #### L 501.9985, L400.0001, L501.6710, L500.2500, L100.0100 #### [facility] [address] [place], [address] MCV (RBC) [Entitic vol] 91.6 fL Normal 81-99 [facility] Comment on above: Performed By: #### L 501.9985, L400.0001, L501.6710, L500.2500, L100.0100 #### [facility] [address] [place], [address] Monocytes/100 WBC (Bld) 12.3 % High 0-10 [facility] Comment on above: Performed By: #### L 501.9985, L400.0001, L501.6710, L500.2500, L100.0100 #### [facility] [address] [place], [address] Neutrophils/100 WBC (Bld) 40.2 % Low 47-70 [facility] Comment on above: Performed By: #### L 501.9985, L400.0001, L501.6710, L500.2500, L100.0100 #### [facility] [address] [place], [address] Nucleated RBC (Bld) [#/Vol] 0 10*3/uL Normal 0-5 [facility] Comment on above: Performed By: #### L 501.9985, L400.0001, L501.6710, L500.2500, L100.0100 #### [facility] [address] [place], [address] Platelet mean volume (Bld) [Entitic vol] 11.1 fL Normal 6.2-12.0 [facility] Comment on above: Performed By: #### L 501.9985, L400.0001, L501.6710, L500.2500, L100.0100 #### [facility] [address] [place], [address] Platelets (Bld) [#/Vol] 248 10*3/uL Normal 150-450 [facility] Comment on above: Performed By: #### L 501.9985, L400.0001, L501.6710, L500.2500, L100.0100 #### [facility] [address] [place], [address] RBC (Bld) [#/Vol] 3.80 10*6/uL Low 4.2-5.4 [facility] Comment on above: Performed By: #### L 501.9985, L400.0001, L501.6710, L500.2500, L100.0100 #### [facility] [address] [place], [address] RDW SD 44.2 fl High 35.1-43.9 [facility] Comment on above: Performed By: #### L 501.9985, L400.0001, L501.6710, L500.2500, L100.0100 #### [facility] [address] [place], [address] WBC (Bld) [#/Vol] 3.4 10*3/uL Low 4.4-11.0 [facility] Comment on above: Performed By: #### L 501.9985, L400.0001, L501.6710, L500.2500, L100.0100 #### [facility] [address] [place], [address] CRPon 10-26-2024 C-REACTIVE PROT < 3.00 Normal 0.0-3.0 [facility] Comment on above: Performed By: #### L 501.9985, L400.0001, L501.6710, L500.2500, L100.0100 #### [facility] [address] [place], [address] Carbon dioxide, total [Moles /volume] in Central venous bloodOrdered By: Morgan Lanier on 10-26-2024 CO2 [Moles/Vol] 24.9 mmol/L 21.0-32.0 [facility] Chloride assayOrdered By: Akosua Lanier on 10-26-2024 Chloride [Moles/Vol] 100 mmol/L 98-108 [facility] Comprehensive Metabolic Prof ilon 10-26-2024 Albumin [Mass/Vol] 4.4 g/dL Normal 3.5-5.0 [facility] Comment on above: Performed By: #### L 501.9985, L400.0001, L501.6710, L500.2500, L100.0100 #### [facility] [address] [place], [address] Albumin/Globulin [Mass ratio] 1.5 {ratio} Normal 0.9-2.4 [facility] Comment on above: Performed By: #### L 501.9985, L400.0001, L501.6710, L500.2500, L100.0100 #### [facility] [address] [place], [address] ALK PHOS 49 U/L Normal 35-104 [facility] Comment on above: Performed By: #### L 501.9985, L400.0001, L501.6710, L500.2500, L100.0100 #### [facility] [address] [place], [address] ALT [Catalytic activity/Vol] 13 U/L Normal <=34 [facility] Comment on above: Performed By: #### L 501.9985, L400.0001, L501.6710, L500.2500, L100.0100 #### [facility] [address] [place], [address] AST [Catalytic activity/Vol] 22 U/L Normal <=31 [facility] Comment on above: Performed By: #### L 501.9985, L400.0001, L501.6710, L500.2500, L100.0100 #### [facility] [address] [place], [address] Bilirubin [Mass/Vol] 0.56 mg/dL Normal 0.00-1.30 [facility] Comment on above: Performed By: #### L 501.9985, L400.0001, L501.6710, L500.2500, L100.0100 #### [facility] [address] [place], [address] BUN/CRE 10.6 RATIO Normal 10-20 [facility] Comment on above: Performed By: #### L 501.9985, L400.0001, L501.6710, L500.2500, L100.0100 #### [facility] [address] [place], [address] Calcium [Mass/Vol] 9.7 mg/dL Normal 7.6-11.0 [facility] Comment on above: Performed By: #### L 501.9985, L400.0001, L501.6710, L500.2500, L100.0100 #### [facility] [address] [place], [address] Chloride [Moles/Vol] 100 mmol/L Normal 98-108 [facility] Comment on above: Performed By: #### L 501.9985, L400.0001, L501.6710, L500.2500, L100.0100 #### [facility] [address] [place], [address] CO2 [Moles/Vol] 24.9 mmol/L Normal 21.0-32.0 [facility] Comment on above: Performed By: #### L 501.9985, L400.0001, L501.6710, L500.2500, L100.0100 #### [facility] [address] [place], [address] Creatinine [Mass/Vol] 0.64 mg/dL Low 0.70-1.[address] [facility] Comment on above: Performed By: #### L 501.9985, L400.0001, L501.6710, L500.2500, L100.0100 #### [facility] [address] [place], [address] GAP 12 Normal 5-15 [facility] Comment on above: Performed By: #### L 501.9985, L400.0001, L501.6710, L500.2500, L100.0100 #### [facility] [address] [place], [address] GFR/1.73 sq M.predicted among non-blacks MDRD (S/P/Bld) [Vol rate/Area] 103 mL/min/{1.73_m2} Normal >60 [facility] Comment on above: Result Comment: mL/m in/1.73m2 CKD-EPI Creatinine Equation (2020) Performed By: #### L 501.9985, L400.0001, L501.6710, L500.2500, L100.0100 #### [facility] [address] [place], [address] Globulin (S) [Mass/Vol] 2.8 g/dL Normal 2.2-4.2 [facility] Comment on above: Performed By: #### L 501.9985, L400.0001, L501.6710, L500.2500, L100.0100 #### [facility] [address] [place], [address] Glucose [Mass/Vol] 81 mg/dL Normal 70-99 [facility] Comment on above: Performed By: #### L 501.9985, L400.0001, L501.6710, L500.2500, L100.0100 #### [facility] [address] [place], [address] Potassium [Moles/Vol] 4.1 mmol/L Normal 3.3-5.[address] [facility] Comment on above: Performed By: #### L 501.9985, L400.0001, L501.6710, L500.2500, L100.0100 #### [facility] [address] [place], [address] Sodium [Moles/Vol] 136 mmol/L Normal 133-145 [facility] Comment on above: Performed By: #### L 501.9985, L400.0001, L501.6710, L500.2500, L100.0100 #### [facility] [address] [place], [address] T PROT 7.2 g/dL Normal 5.9-8.4 [facility] Comment on above: Performed By: #### L 501.9985, L400.0001, L501.6710, L500.2500, L100.0100 #### [facility] [address] [place], [address] Urea nitrogen [Mass/Vol] 7 mg/dL Normal 4-19 [facility] Comment on above: Performed By: #### L 501.9985, L400.0001, L501.6710, L500.2500, L100.0100 #### [facility] [address] [place], [address] Eosinophil percentageOrdered By: Morgan Lanier on 10-26-2024 Eosinophils/100 WBC (Bld) 3.5 % 0-5 [facility] Erythrocyte distribution wid th ratioOrdered By: Morgan Lanier on 10-26-2024 Erythrocyte distribution width (RBC) [Ratio] 13.2 % 11.6-14.6 [facility] Erythrocyte distribution wid th standard deviationOrdered By: Morgan Lanier on 10-26-2024 Erythrocyte distribution width (RBC) [Ratio] 44.2 fl High 35.1-43.9 [facility] Glomerular filtration rate ( GFR) estimation/1.73 sq m using serum, plasma, or whole bOrdered By: Morgan Lanier on 10-26-2024 GFR/1.73 sq M.predicted among non-blacks MDRD (S/P/Bld) [Vol rate/Area] 103 mL/min/{1.73_m2} >60 [facility] Comment on above: mL/min/1.73m2 CKD-EP I Creatinine Equation (2020) Hematocrit Auto (Bld) [Volum e fraction]Ordered By: Morgan Lanier on 10-26-2024 Hematocrit (Bld) [Volume fraction] 34.8 % Low 37-47 [facility] Hemoglobin measurementOrdere d By: Morgan Lanier on 10-26-2024 Hemoglobin (Bld) [Mass/Vol] 11.6 g/dL Low 12.0-15.0 [facility] Immature granulocytes/100 WB C Auto (Bld)Ordered By: Morgan Lanier on 10-26-2024 Immature granulocytes/100 WBC (Bld) 0.300 % 0.0-0.9 [facility] Comment on above: IG% - Immature Granu locytes (promyelocytes, myelocytes and metamyelocytes) > 1% indicates that a LEFT SHIFT is Present. Laboratory - Chemistry and C hemistry - challengeOrdered By: Morgan Lanier on 10-26-2024 AST [Catalytic activity/Vol] 22 U/L <32 [facility] MCV (mean corpuscular volume ) determinationOrdered By: Morgan Lanier on 10-26-2024 MCV (RBC) [Entitic vol] 91.6 fL 81-99 [facility] Mean corpuscular hemoglobin (MCH) determinationOrdered By: Morgan Lanier on 10-26-2024 MCH (RBC) [Entitic mass] 30.5 pg 27.0-32.0 [facility] Mean corpuscular hemoglobin concentration (MCHC) determinationOrdered By: Morgan Lanier on 10-26-2024 MCHC (RBC) [Mass/Vol] 33.3 g/dL 32-[address] [facility] Mean platelet volume determi nationOrdered By: Morgan Lanier on 10-26-2024 Platelet mean volume (Bld) [Entitic vol] 11.1 fL 6.2-12.0 [facility] Monocyte percentageOrdered B y: Morgan Lanier on 10-26-2024 Monocytes/100 WBC (Bld) 12.3 % High 0-10 [facility] Neutrophil percentageOrdered By: Morgan Lanier on 10-26-2024 Neutrophils/100 WBC (Bld) 40.2 % Low 47-70 [facility] Nucleated red blood cell per centageOrdered By: Morgan Lanier on 10-26-2024 Nucleated RBC/100 WBC (Bld) [Ratio] 0 % 0-5 [facility] Platelet countOrdered By: Akosua Lanier on 10-26-2024 Platelets (Bld) [#/Vol] 248 10*3/uL 150-450 [facility] Potassium measurement (mass/ volume)Ordered By: Morgan Lanier on 10-26-2024 Potassium (Unsp spec) [Mass/Vol] 4.1 mmol/L 3.3-5.1 [facility] RBC Auto (Bld) [#/Vol]Ordere d By: Morgan Lanier on 10-26-2024 RBC (Bld) [#/Vol] 3.80 10*6/uL Low 4.2-5.4 [facility] Serum creatinine measurement (mass/volume)Ordered By: Morgan Lanier on 10-26-2024 Creatinine [Mass/Vol] 0.64 mg/dL Low 0.70-1.[address] [facility] Serum globulin measurementOr dered By: Morgan Lanier on 10-26-2024 Globulin (S) [Mass/Vol] 2.8 g/dL 2.2-4.2 [facility] Serum glucose measurement (m ass/volume)Ordered By: Morgan Lanier on 10-26-2024 Glucose [Mass/Vol] 81 mg/dL 70-99 [facility] Serum or plasma C reactive p rotein measurement (mass/volume)Ordered By: Morgan Lanier on 10-26-2024 CRP [Mass/Vol] mg/L 0.0-3.0 [facility] Serum or plasma alanine kulkarni otransferase (ALT) measurementOrdered By: Morgan Lanier on 10-26-2024 ALT [Catalytic activity/Vol] 13 U/L <35 [facility] Serum or plasma albumin nicole urement (mass/volume)Ordered By: Morgan Lanier on 10-26-2024 Albumin [Mass/Vol] 4.4 g/dL 3.5-5.0 [facility] Serum or plasma albumin/glob ulin mass ratioOrdered By: Morgan Lanier on 10-26-2024 Albumin/Globulin [Mass ratio] 1.5 {ratio} 0.9-2.4 [facility] Serum or plasma alkaline bobby sphatase measurementOrdered By: Morgan Lanier on 10-26-2024 ALP [Catalytic activity/Vol] 49 U/L 35-104 [facility] Serum or plasma calcium nicole urement (mass/volume)Ordered By: Morgan Lanier on 10-26-2024 Calcium [Mass/Vol] 9.7 mg/dL 7.6-11.0 [facility] Serum or plasma urea nitroge n measurement (mass/volume)Ordered By: Morgan Lanier on 10-26-2024 Urea nitrogen [Mass/Vol] 7 mg/dL 4-19 [facility] Sodium levelOrdered By: Morgan Lanier on 10-26-2024 Sodium [Moles/Vol] 136 mmol/L 133-145 [facility] Total proteinOrdered By: Morgan Lanier on 10-26-2024 Protein [Mass/Vol] 7.2 g/dL 5.9-8.4 [facility] White blood cell (WBC) count Ordered By: Morgan Lanier on 10-26-2024 WBC (Bld) [#/Vol] 3.4 10*3/uL Low 4.4-11.0 [facility] Chest PA and Lateralon 09-20 Chest PA and Lateral [facility] Services [address] [place], [place] [id number] Chest PA and Lateral MR#: [id number] Acct: [id number] Name: CHASITY ARIAS Rep #: [id number] : 1965 F 59 From: Chacorta Arnett MD PCP: Dr. Fabián Ruiz DO Status: REG CLI Study: Chest PA and Lateral Date of Exam: 09/20/24 Exam# [id number] Ordering Dr: Casimiro Dc PA PROCEDURE: CHEST PA AND LATERAL 09/20/2024 REASON FOR EXAM: COUGH TECHNIQUE: CHEST PA AND LATERAL COMPARISON: Chest radiographs on 01/05/2024 and 09/05/2021 FINDINGS: Hardware: None Mediastinum: The mediastinal contour is stable. Lungs: No focal consolidation or pleural effusion. Bones: Degenerative changes are identified within the thoracic spine. RAD/Chest PA and Lateral IMPRESSION: No acute cardiopulmonary abnormality. Reading Location: [id number] CC: Dr. Fabián Ruiz DO; KALYANI Sheikh Radiologic Tech: Signed Normal [facility] Urgent Care Visit Reporton 0 09-20-2024 Urgent Care Visit Report [facility] [address], [address] [place] [address] OFFICE VISIT Date of Service: 09/20/24 MR#: [id number] Acct: [id number] Name: CHASITY ARIAS Rep #: [id number] : 1965 Provider: KALYANI Sheikh Age/Sex: 59/F Location: [facility] Status: Signed Intake Vital Signs 06/29/24 10:02 09/20/24 17:42 Height 5 ft 2 in Weight: 128 lb BMI 23.3 BP 120/80 120/82 H Blood Pressure Location Lt brachial Position Sitting Sitting Respiration 15 16 Pulse 74 71 Pulse Source Monitor Temp 98.0 F 98.3 F Temp Source Temporal Oral Pulse Oximetry (%) 99 98 Oxygen Delivery Method room air room air Intake Visit Reasons: HEAD CONGESTION, CHEST TIGHTNESS Chief Complaint: Accompanied by: Self Allergies No Known Allergies Allergy (Verified 09/20/24 17:31) Medications ???Medication ???Instructions ???Recorded ???Confirmed ???Type cholecalciferol (vitamin D3) 25 1,000 unit PO DAILY 08/10/1809/20 History mcg (1,000 unit) tablet mycophenolate mofetil 500 mg 500 mg PO QHS lupus 03/27/2209/20 History tablet (CellCept) hydroxychloroquine 200 mg tablet 200 mg PO BID 09/11/22 09/20/24 Hi story (Plaquenil) albuterol sulfate 90 mcg/actuation 2 puff inhalation Q6H PRN 09/20/24 Rx aerosol inhaler shortness of breath or wheezing #8.5 grams mycophenolate mofetil 250 mg 250 mg PO DAILY 07/30/23 09/20/24 History capsule (CellCept) biotin 5,000 mcg sublingual tablet 5,000 mcg sublingual DAILY 08/1109/20/24 History cyanocobalamin (vitamin B-12) 1,000 mcg PO DAILY 08/12/23 History 1,000 mcg tablet (Vitamin B-12) rizatriptan 10 mg tablet 10 mg PO .COMPLEX migraine 4 09/20/24 Rx headache #9 tabs omeprazole 40 mg capsule,delayed 40 mg PO QDAY #90 caps 12/17/23 Rx release levothyroxine 75 mcg tablet See Rx Instructions .Route 4 09/20/24 Rx .COMPLEX #90 tabs ondansetron HCl 8 mg tablet 8 mg PO Q8H PRN nausea and 4 09/20/24 Rx vomiting #14 tabs potassium chloride 20 mEq See Rx Instructions .Route 5 09/20/24 Rx tablet,extended release(part/cryst) .COMPLEX #90 tabs divalproex 250 mg tablet,delayed 250 mg PO QHS #30 tabs 04/22/24 Rx release folic acid 1 mg tablet 1 mg PO DAILY #30 tabs 04/22/24 Rx ondansetron HCl 4 mg tablet 4 mg PO TID PRN nausea and 5 09/20/24 Rx vomiting #90 tabs rimegepant 75 mg disintegrating 75 mg PO DAILY PRN migraine 09/20/24 Rx tablet (Nurtec ODT) headache #16 tabs amoxicillin 875 mg-potassium 1 tab PO BID #20 tabs 09/20/24 Rx clavulanate 125 mg tablet ascorbic acid (vitamin C) 500 mg 500 mg PO QDAY 09/20/24 09/20/24 H istory tablet magnesium tab PO 09/20/24 09/20/24 History omega-3 fatty acids-fish oil 300 cap PO 09/20/24 09/20/24 History mg-500 mg capsule (Fish Oil) Nurse's Note: Patient has head congestion, chest tightness that started Sat. Patient states today she feels pressure in her ears and head. Patient has a headache. [facility] Medical History Travel advice encounter Difficulty swallowing Nausea History of edema History of stress test Health care maintenance Swallowing problem Post-menopausal Alcohol use Lupus Injury of head and neck Hair loss Hypothyroidism Seasonal affective disorder Reyez's esophagus Hypokalemia Wears glasses Thyroid disease Arthritis Migraine headache Gastric reflux Non-smoker History of echocardiogram History of irregular heartbeat Anxiety and depression Headache Eye disorder Vertigo Heart murmur Anemia Asthma Annette's thyroiditis Systemic lupus erythematosus Surgical History History of esophagogastroduodenoscopy (EGD) History of endometrial ablation History of colonoscopy History of bilateral carpal tunnel release History of dilatation and curettage History of endoscopy History of tubal ligation History of tonsillectomy and adenoidectomy history of cystoscopy/dilation Family History Father Heart disease Hypertension Thyroid disorder Brother Hypertension Thyroid disorder High cholesterol White matter disease Mother Cancer CLL Grandmother Bone cancer Grandfather Colon cancer Social History household members: spouse Smoking Status: Never smoker second hand exposure: No alcohol intake: current alcohol intake frequency: a few times a week Alcohol type: beer and wine details: substance use type: does not use caffeine: No ( ) (more content not included)... Normal [facility] Absolute lymphocyte countOrd ered By: Morgan Lanier on 09-02-2024 Lymphocytes Auto (Unsp spec) [#/Vol] 1.60 10*3/uL 0.83-4.51 [facility] Absolute neutrophil countOrd ered By: Morgan Lanier on 09-02-2024 Neutrophils (Bld) [#/Vol] 2.8 10*3/uL 2.0-7.7 [facility] Anion gap in Serum or Plasma Ordered By: Morgan Lanier on 09-02-2024 Anion gap [Moles/Vol] 11 mmol/L 5- [facility] Automated lymphocyte count a s percentage of total leukocytesOrdered By: Morgan Lanier on 09-02-2024 Lymphocytes/100 WBC Auto (Unsp spec) 32.1 % - [facility] BUN/creatinine ratioOrdered By: Morgan Lanier on 09-02-2024 Urea nitrogen/Creatinine [Mass ratio] 13.1 mg/mg 10-20 [facility] Basophil percentageOrdered B y: Morgan Lanier on 09-02-2024 Basophils/100 WBC (Bld) 1.0 % 0-1 [facility] Bilirubin, totalOrdered By: Morgan Lanier on 09-02-2024 Bilirubin [Mass/Vol] 0.55 mg/dL 0.00-1.30 [facility] CBC W/Diff, Automatedon Absolute Lymph 1.60 X10 3/uL Normal 0.83-4.51 [facility] Comment on above: Performed By: #### L 500.4050, L501.6710, L100.0100 #### [facility] [address] [place], [address] Absolute Neut 2.8 X10 3/uL Normal 2.0-7.7 [facility] Comment on above: Performed By: #### L 500.4050, L501.6710, L100.0100 #### [facility] [address] [place], [address] Basophils/100 WBC (Bld) 1.0 % Normal 0-1 [facility] Comment on above: Performed By: #### L 500.4050, L501.6710, L100.0100 #### [facility] [address] [place], [address] Eosinophils/100 WBC (Bld) 1.2 % Normal 0-5 [facility] Comment on above: Performed By: #### L 500.4050, L501.6710, L100.0100 #### [facility] [address] [place], [address] Erythrocyte distribution width (RBC) [Ratio] 13.0 % Normal 11.6-14.6 [facility] Comment on above: Performed By: #### L 500.4050, L501.6710, L100.0100 #### [facility] [address] [place], [address] Hematocrit (Bld) [Volume fraction] 32.3 % Low 37-47 [facility] Comment on above: Performed By: #### L 500.4050, L501.6710, L100.0100 #### [facility] [address] [place], [address] Hemoglobin (Bld) [Mass/Vol] 10.9 g/dL Low 12.0-15.0 [facility] Comment on above: Performed By: #### L 500.4050, L501.6710, L100.0100 #### [facility] [address] [place], [address] IG% 0.200 Normal 0.0-0.9 [facility] Comment on above: Result Comment: IG% - Immature Granulocytes (promyelocytes, myelocytes and metamyelocytes) > 1% indicates that a LEFT SHIFT is Present. Performed By: #### L 500.4050, L501.6710, L100.0100 #### [facility] [address] [place], [address] Lymphocytes/100 WBC (Bld) 32.1 % Normal 19-41 [facility] Comment on above: Performed By: #### L 500.4050, L501.6710, L100.0100 #### [facility] [address] [place], [address] MCH (RBC) [Entitic mass] 30.6 pg Normal 27.0-32.0 [facility] Comment on above: Performed By: #### L 500.4050, L501.6710, L100.0100 #### [facility] [address] [place], [address] MCHC (RBC) [Mass/Vol] 33.7 g/dL Normal 32-[address] [facility] Comment on above: Performed By: #### L 500.4050, L501.6710, L100.0100 #### [facility] [address] [place], [address] MCV (RBC) [Entitic vol] 90.7 fL Normal 81-99 [facility] Comment on above: Performed By: #### L 500.4050, L501.6710, L100.0100 #### [facility] [address] [place], [address] Monocytes/100 WBC (Bld) 9.0 % Normal 0-10 [facility] Comment on above: Performed By: #### L 500.4050, L501.6710, L100.0100 #### [facility] [address] [place], [address] Neutrophils/100 WBC (Bld) 56.5 % Normal 47-70 [facility] Comment on above: Performed By: #### L 500.4050, L501.6710, L100.0100 #### [facility] [address] [place], [address] Nucleated RBC (Bld) [#/Vol] 0 10*3/uL Normal 0-5 [facility] Comment on above: Performed By: #### L 500.4050, L501.6710, L100.0100 #### [facility] [address] [place], [address] Platelet mean volume (Bld) [Entitic vol] 12.2 fL High 6.2-12.0 [facility] Comment on above: Performed By: #### L 500.4050, L501.6710, L100.0100 #### [facility] [address] [place], [address] Platelets (Bld) [#/Vol] 212 10*3/uL Normal 150-450 [facility] Comment on above: Performed By: #### L 500.4050, L501.6710, L100.0100 #### [facility] [address] [place], [address] RBC (Bld) [#/Vol] 3.56 10*6/uL Low 4.2-5.4 [facility] Comment on above: Performed By: #### L 500.4050, L501.6710, L100.0100 #### [facility] [address] [place], [address] RDW SD 42.9 fl Normal 35.1-43.9 [facility] Comment on above: Performed By: #### L 500.4050, L501.6710, L100.0100 #### [facility] [address] [place], [address] WBC (Bld) [#/Vol] 5.0 10*3/uL Normal 4.4-11.0 [facility] Comment on above: Performed By: #### L 500.4050, L501.6710, L100.0100 #### [facility] [address] [place], [address] CRPon 09-02-2024 C-REACTIVE PROT < 3.00 Normal 0.0-3.0 [facility] Comment on above: Performed By: #### L 500.4050, L501.6710, L100.0100 #### [facility] [address] [place], [address] Carbon dioxide, total [Moles /volume] in Central venous bloodOrdered By: Morgan Lanier on 09-02-2024 CO2 [Moles/Vol] 25.1 mmol/L 21.0-32.0 [facility] Chloride assayOrdered By: Akosua Lanier on 09-02-2024 Chloride [Moles/Vol] 96 mmol/L Low 98-108 [facility] Comprehensive Metabolic Prof ilon 09-02-2024 Albumin [Mass/Vol] 4.1 g/dL Normal 3.5-5.0 [facility] Comment on above: Performed By: #### L 500.4050, L501.6710, L100.0100 #### [facility] [address] [place], [address] Albumin/Globulin [Mass ratio] 3.0 {ratio} High 0.9-2.4 [facility] Comment on above: Performed By: #### L 500.4050, L501.6710, L100.0100 #### [facility] [address] [place], [address] ALK PHOS 43 U/L Normal 35-104 [facility] Comment on above: Performed By: #### L 500.4050, L501.6710, L100.0100 #### [facility] [address] [place], [address] ALT [Catalytic activity/Vol] 11 U/L Normal <=34 [facility] Comment on above: Performed By: #### L 500.4050, L501.6710, L100.0100 #### [facility] [address] [place], [address] AST [Catalytic activity/Vol] 21 U/L Normal <=31 [facility] Comment on above: Performed By: #### L 500.4050, L501.6710, L100.0100 #### [facility] [address] [place], [address] Bilirubin [Mass/Vol] 0.55 mg/dL Normal 0.00-1.30 [facility] Comment on above: Performed By: #### L 500.4050, L501.6710, L100.0100 #### [facility] [address] [place], [address] BUN/CRE 13.1 RATIO Normal 10-20 [facility] Comment on above: Performed By: #### L 500.4050, L501.6710, L100.0100 #### [facility] [address] [place], [address] Calcium [Mass/Vol] 8.6 mg/dL Normal 7.6-11.0 [facility] Comment on above: Performed By: #### L 500.4050, L501.6710, L100.0100 #### [facility] [address] [place], [address] Chloride [Moles/Vol] 96 mmol/L Low 98-108 [facility] Comment on above: Performed By: #### L 500.4050, L501.6710, L100.0100 #### [facility] [address] [place], [address] CO2 [Moles/Vol] 25.1 mmol/L Normal 21.0-32.0 [facility] Comment on above: Performed By: #### L 500.4050, L501.6710, L100.0100 #### [facility] [address] [place], [address] Creatinine [Mass/Vol] 0.63 mg/dL Low 0.70-1.[address] [facility] Comment on above: Performed By: #### L 500.4050, L501.6710, L100.0100 #### [facility] [address] [place], [address] GAP 11 Normal 5-15 [facility] Comment on above: Performed By: #### L 500.4050, L501.6710, L100.0100 #### [facility] [address] [place], [address] GFR/1.73 sq M.predicted among non-blacks MDRD (S/P/Bld) [Vol rate/Area] 103 mL/min/{1.73_m2} Normal >60 [facility] Comment on above: Result Comment: mL/m in/1.73m2 CKD-EPI Creatinine Equation (2020) Performed By: #### L 500.4050, L501.6710, L100.0100 #### [facility] [address] [place], [address] Globulin (S) [Mass/Vol] 1.4 g/dL Low 2.2-4.2 [facility] Comment on above: Performed By: #### L 500.4050, L501.6710, L100.0100 #### [facility] [address] [place], [address] Glucose [Mass/Vol] 93 mg/dL Normal 70-99 [facility] Comment on above: Performed By: #### L 500.4050, L501.6710, L100.0100 #### [facility] [address] [place], [address] Potassium [Moles/Vol] 4.1 mmol/L Normal 3.3-5.[address] [facility] Comment on above: Performed By: #### L 500.4050, L501.6710, L100.0100 #### [facility] [address] [place], [address] Sodium [Moles/Vol] 132 mmol/L Low 133-145 [facility] Comment on above: Performed By: #### L 500.4050, L501.6710, L100.0100 #### [facility] [address] [place], [address] T PROT 5.5 g/dL Low 5.9-8.4 [facility] Comment on above: Performed By: #### L 500.4050, L501.6710, L100.0100 #### [facility] [address] [place], [address] Urea nitrogen [Mass/Vol] 8 mg/dL Normal 4-19 [facility] Comment on above: Performed By: #### L 500.4050, L501.6710, L100.0100 #### [facility] [address] [place], [address] Eosinophil percentageOrdered By: Morgan Lanier on 09-02-2024 Eosinophils/100 WBC (Bld) 1.2 % 0-5 [facility] Erythrocyte distribution wid th ratioOrdered By: Morgan Lanier on 09-02-2024 Erythrocyte distribution width (RBC) [Ratio] 13.0 % 11.6-14.6 [facility] Erythrocyte distribution wid th standard deviationOrdered By: Morgan Lanier on 09-02-2024 Erythrocyte distribution width (RBC) [Ratio] 42.9 fl 35.1-43.9 [facility] Glomerular filtration rate ( GFR) estimation/1.73 sq m using serum, plasma, or whole bOrdered By: Morgan Lanier on 09-02-2024 GFR/1.73 sq M.predicted among non-blacks MDRD (S/P/Bld) [Vol rate/Area] 103 mL/min/{1.73_m2} >60 [facility] Comment on above: mL/min/1.73m2 CKD-EP I Creatinine Equation (2020) Hematocrit Auto (Bld) [Volum e fraction]Ordered By: Morgan Lanier on 09-02-2024 Hematocrit (Bld) [Volume fraction] 32.3 % Low 37-47 [facility] Hemoglobin measurementOrdere d By: Morgan Lanier on 09-02-2024 Hemoglobin (Bld) [Mass/Vol] 10.9 g/dL Low 12.0-15.0 [facility] Immature granulocytes/100 WB C Auto (Bld)Ordered By: Morgan Lanier on 09-02-2024 Immature granulocytes/100 WBC (Bld) 0.200 % 0.0-0.9 [facility] Comment on above: IG% - Immature Granu locytes (promyelocytes, myelocytes and metamyelocytes) > 1% indicates that a LEFT SHIFT is Present. Laboratory - Chemistry and C hemistry - challengeOrdered By: Morgan Lanier on 09-02-2024 AST [Catalytic activity/Vol] 21 U/L <32 [facility] MCV (mean corpuscular volume ) determinationOrdered By: Morgan Lanier on 09-02-2024 MCV (RBC) [Entitic vol] 90.7 fL 81-99 [facility] Mean corpuscular hemoglobin (MCH) determinationOrdered By: Morgan Lanier on 09-02-2024 MCH (RBC) [Entitic mass] 30.6 pg 27.0-32.0 [facility] Mean corpuscular hemoglobin concentration (MCHC) determinationOrdered By: Morgan Lanier on 09-02-2024 MCHC (RBC) [Mass/Vol] 33.7 g/dL 32-[address] [facility] Mean platelet volume determi nationOrdered By: Morgan Lanier on 09-02-2024 Platelet mean volume (Bld) [Entitic vol] 12.2 fL High 6.2-12.0 [facility] Monocyte percentageOrdered B y: Morgan Lanier on 09-02-2024 Monocytes/100 WBC (Bld) 9.0 % 0-10 [facility] Neutrophil percentageOrdered By: Morgan Lanier on 09-02-2024 Neutrophils/100 WBC (Bld) 56.5 % 47-70 [facility] Nucleated red blood cell per centageOrdered By: Morgan Lanier on 09-02-2024 Nucleated RBC/100 WBC (Bld) [Ratio] 0 % 0-5 [facility] Platelet countOrdered By: Akosua Lanier on 09-02-2024 Platelets (Bld) [#/Vol] 212 10*3/uL 150-450 [facility] Potassium measurement (mass/ volume)Ordered By: Morgan Lanier on 09-02-2024 Potassium (Unsp spec) [Mass/Vol] 4.1 mmol/L 3.3-5.1 [facility] RBC Auto (Bld) [#/Vol]Ordere d By: Morgan Lanier on 09-02-2024 RBC (Bld) [#/Vol] 3.56 10*6/uL Low 4.2-5.4 [facility] Serum creatinine measurement (mass/volume)Ordered By: Morgan Lanier on 09-02-2024 Creatinine [Mass/Vol] 0.63 mg/dL Low 0.70-1.[address] [facility] Serum globulin measurementOr dered By: Morgan Lanier on 09-02-2024 Globulin (S) [Mass/Vol] 1.4 g/dL Low 2.2-4.2 [facility] Serum glucose measurement (m ass/volume)Ordered By: Morgan Lanier on 09-02-2024 Glucose [Mass/Vol] 93 mg/dL 70-99 [facility] Serum or plasma C reactive p rotein measurement (mass/volume)Ordered By: Morgan Lanier on 09-02-2024 CRP [Mass/Vol] mg/L 0.0-3.0 [facility] Serum or plasma alanine kulkarni otransferase (ALT) measurementOrdered By: Morgan Lanier on 09-02-2024 ALT [Catalytic activity/Vol] 11 U/L <35 [facility] Serum or plasma albumin nicole urement (mass/volume)Ordered By: Morgan Lanier on 09-02-2024 Albumin [Mass/Vol] 4.1 g/dL 3.5-5.0 [facility] Serum or plasma albumin/glob ulin mass ratioOrdered By: Morgan Lanier on 09-02-2024 Albumin/Globulin [Mass ratio] 3.0 {ratio} High 0.9-2.4 [facility] Serum or plasma alkaline bobby sphatase measurementOrdered By: Morgan Lanier on 09-02-2024 ALP [Catalytic activity/Vol] 43 U/L 35-104 [facility] Serum or plasma calcium nicole urement (mass/volume)Ordered By: Morgan Lanier on 09-02-2024 Calcium [Mass/Vol] 8.6 mg/dL 7.6-11.0 [facility] Serum or plasma urea nitroge n measurement (mass/volume)Ordered By: Morgan Lnaier on 09-02-2024 Urea nitrogen [Mass/Vol] 8 mg/dL 4-19 [facility] Sodium levelOrdered By: Morgan Lanier on 09-02-2024 Sodium [Moles/Vol] 132 mmol/L Low 133-145 [facility] Total proteinOrdered By: Morgan Lanier on 09-02-2024 Protein [Mass/Vol] 5.5 g/dL Low 5.9-8.4 [facility] White blood cell (WBC) count Ordered By: Morgan Lanier on 09-02-2024 WBC (Bld) [#/Vol] 5.0 10*3/uL 4.4-11.0 [facility] T4 Free Directon 08-19-2024 T4 FREE DIRECT 1.10 ng/dL Normal 0.76-1.46 [facility] Comment on above: Performed By: #### L 501.9985, L400.0001, L501.6710, L500.2500, L100.0100 #### [facility] [address] [place], [place] [address], [address] Thyroid Stim Hormone (TSH)on 08-19-2024 TSH 3.150 uIU/mL Normal 0.300-4.[address] [facility] Comment on above: Performed By: #### L [id number], L400.0001, L501.6710, L500.2500, L100.0100 #### [facility] [address] [place], [address] Vitamin D,25 Hydroxyon 08-19 Vitamin D 25-OH 51.8 ng/mL Normal 30-100 [facility] Comment on above: Result Comment: Mervat min D Status Deficiency: <20 ng/mL (50nmol/L) Insufficiency: 20-30 ng/mL (50-75 nmol/L) Sufficiency: 30-100 ng/mL (75-250 nmol/L) Toxicity: >100 ng/mL (>250 nmol/L) Performed By: #### L 501.9985, L400.0001, L501.6710, L500.2500, L100.0100 #### [facility] [address] [place], [address] T4 freeOrdered By: Fabián jefferson on 08-18-2024 Free T4 [Mass/Vol] 1.10 ng/dL 0.76-1.46 [facility] TSH DL <= 0.005 mIU/L QnOrde red By: Fabián Ruiz on 08-18-2024 TSH Qn 3.150 uIU/mL 0.300-4.[address] [facility] Chromatin Ab IgGon 5 Chromatin Antibody, IgG 4 Normal 0-19 [facility] Comment on above: Result Comment: INTE RPRETIVE INFORMATION: Chromatin Antibody, IgG 19 Units or less: Negative 20 - 60 Units: Moderate Positive 61 Units or greater: Strong Positive The presence of anti-chromatin antibodies may be useful in the diagnosis of systemic lupus erythematosus (SLE) or drug-induced lupus (DIL) and have been reported to be predictive of lupus nephritis, especially when antibody levels are high. Performed by [facility], [address] [place] [address],[place] [address] [email or web address], Bronson Love MD, Lab. Director [place] Number: [id number] Performed By: #### 1 [id number], [id number], [id number] #### [facility] [address] [place], [place] [address] Bowling Alley Attendant: Fercho Rojo MD MISC [id number] 07-05-2024 [facility] See Report Normal [facility] Comment on above: Order Comment: [id number] EYAD VIRUS Performed By: #### 1 [id number] #### [facility] [address] [place], [place] [address] Bowling Alley Attendant: Fercho Rojo MD QuantiFeron 4 Tube TB Goldon 07-03-2024 QuantiFERON Mitogen minus NIL 9.99 IU/mL Normal [facility] Comment on above: Performed By: #### 5 [id number], [id number], [id number] #### [facility] [address] [place] [address] Bowling Alley Attendant: Fercho Rojo MD QuantiFERON NIL 0.01 IU/mL Normal [facility] Comment on above: Performed By: #### 5 [id number], [id number], [id number], [id number] #### [facility] [address] [place], [place] [address] Bowling Alley Attendant: Fercho Rojo MD Quantiferon Plus TB1 minus NIL 0.00 IU/mL Normal <=0.34 [facility] Comment on above: Performed By: #### 5 [id number], [id number], [id number], [id number] #### [facility] [address] [place], [place] [address] Bowling Alley Attendant: Fercho Rojo MD Quantiferon Plus TB2 minus NIL 0.01 IU/mL Normal <=0.34 [facility] Comment on above: Performed By: #### 5 [id number], [id number], [id number], [id number] #### [facility] [address] [place] [address] Bowling Alley Attendant: Fercho Rojo MD QuantiFeron TB Gold Plus Negative Normal Negative [facility] Comment on above: Result Comment: INTE RPRETIVE INFORMATION:Quantiferon TB Gold Plus Interferon gamma release is measured for specimens from each of the four collection tubes. A qualitative result (Negative, Positive, or Indeterminate) is based on interpretation of the four values: NIL, MITOGEN minus NIL (MITOGEN-NIL), TB1 minus NIL (TB1-NIL), and TB2 minus NIL (TB2-NIL). The NIL value represents nonspecific reactivity produced by the patient specimen. The MITOGEN-NIL value serves as the positive control for the patient specimen, demonstrating successful lymphocyte activity. The TB1-NIL tube specifically detects CD4+ lymphocyte reactivity, specifically stimulated by the TB1 antigens. The TB2-NIL tube detects both CD4+ and CD8+ lymphocyte reactivity, stimulated by TB2 antigens. An overall Negative result does not completely rule out TB infection. A false-positive result in the absence of other clinical evidence of TB infection is not uncommon. Refer to: Updated Guidelines for Using Interferon Gamma Release Assays to Detect Mycobacterium tuberculosis Infection -- [place], 2010 (http://www.cdc.gov/mmwr/preview/mmwrhtml/hh3952l3.htm), for more information concerning test performance in low-prevalence populations and use in occupational screening. Performed By: [facility] [address] [place] [address] Brown Sourer: Jessee Martinez MD, PhD CLIA Number: [id number] Performed By: #### 5 [id number], [id number], [id number] #### [facility] [address] [place] [address] Bowling Alley Attendant: Fercho Rojo MD SSAon 07-03-2024 SSA 52 (Ro) (JAYLA) AB, IgG 7 Normal 0-40 [facility] Comment on above: Result Comment: INTE RPRETIVE INFORMATION: SSA-52 (Ro52) (JAYLA) Antibody, IgG 29 AU/mL or Less ............. Negative 30 - 40 AU/mL ................ Equivocal 41 AU/mL or Greater .......... Positive SSA-52 (Ro52) and/or SSA-60 (Ro60) antibodies are associated with a diagnosis of Sjogren syndrome, systemic lupus erythematosus (SLE), and systemic sclerosis. SSA-52 antibody overlaps significantly with the major SSc-related antibodies. SSA-52 (Ro52) antibody occurs frequently in patients with inflammatory myopathies, often in the presence of interstitial lung disease. Performed By: #### 1 [id number], [id number], [id number], [id number] #### [facility] [address] [place] [address] Bowling Alley Attendant: Fercho Rojo MD SSA 60 (Ro) (JAYLA) AB, IgG 0 Normal 0-40 [facility] Comment on above: Result Comment: REFE RENCE INTERVAL: SSA-60 (Ro60) (JAYLA) Antibody, IgG 29 AU/mL or Less ............. Negative 30 - 40 AU/mL ................ Equivocal 41 AU/mL or Greater .......... Positive Performed By: [facility] [address] [place], [place] [id number] Brown Sourer: Jessee Martinez MD, PhD CLIA Number: [id number] Performed By: #### 1 [id number], [id number], [id number], [id number] #### [facility] [address] [place] [address] Bowling Alley Attendant: Fercho Rojo MD SSBon 07-03-2024 SSB (La) (JAYLA) AB, IgG 0 Normal 0-40 [facility] Comment on above: Result Comment: INTE RPRETIVE INFORMATION: SSB (La) (JAYLA) Ab, IgG 29 AU/mL or Less ............. Negative 30 - 40 AU/mL ................ Equivocal 41 AU/mL or Greater .......... Positive SSB (La) antibody is seen in 50-60% of Sjogren syndrome cases and is specific if it is the only JAYLA antibody present. 15-25% of patients with systemic lupus erythematosus (SLE) and 5-10% of patients with progressive systemic sclerosis (PSS) also have this antibody. Performed By: [facility] [address] [place] [address] Brown Sourer: Jessee Martinez MD, PhD CLIA Number: [id number] Performed By: #### 1 [id number], [id number], [id number], [id number] #### [facility] [address] [place] [address] Bowling Alley Attendant: Fercho Rojo MD Guerra JAYLA Ab IgGon 5 Guerra (JAYLA) Antibody, IgG 1 Normal 0-40 [facility] Comment on above: Result Comment: INTE RPRETIVE INFORMATION: Guerra (JAYLA) Antibody, IgG 29 AU/mL or Less ............. Negative 30 - 40 AU/mL ................ Equivocal 41 AU/mL or Greater .......... Positive Guerra antibody is highly specific (greater than 90 percent) for systemic lupus erythematosus (SLE) but only occurs in 30-35 percent of SLE cases. The presence of antibodies to Guerra has variable associations with SLE clinical manifestations. Performed By: [facility] [address] [place] [address] Brown Sourer: Jessee Martinez MD, PhD CLIA Number: [id number] Performed By: #### 5 [id number], [id number], [id number], [id number] #### [facility] [address] [place] [address] Bowling Alley Attendant: Fercho Rojo MD ANAon 07-01-2024 Anti-Nuclear Antibody Positive Abnormal [facility] Comment on above: Result Comment: This test is a screen, if positive refer to the quantitative test. Performed using the [facility] HEp-2000? IgG Fluorescent ASHLEY-Ro Test System. Performed By: #### 1 [id number], [id number] #### [facility] [address] [place] [address] Bowling Alley Attendant: Fercho Rojo MD ASHLEY Qon 07-01-2024 ASHLEY Pattern Dense Fine Speckled Normal [facility] Comment on above: Order Comment: ASHLEY Q ordered by Discern Expert. Result Comment: ASHLEY Pattern Types: Homogenous: High titers are suggestive of SLE. Speckled: High titers are suggestive of SLE, Scleroderma, or Sjogren's Syndrome/SICCA complex. Centromere: High titers are suggestive of CREST Syndrome. Nucleolar: High titers are prevalent in Scleroderma and Sjorgen's Syndrome. SSARo: High titers are suggestive of Sjorgen's Syndrome, SLE, and Subacute Cutaneous Lupus. Mixed: High titers are suggestive of Mixed Connective Tissue Disease. DFS: Homogeneous/Speckled pattern resembling DFS (dense fine speckled). DFS patterns are Rarely clinically associated with Systemic Autoimmune Rheumatic Diseases (SARDs). This auto-antibody is only seen in 2-3% of patients exhibiting SARDs symptoms. However, DFS patterns can mask other clinically significant auto-antibodies. Follow-up testing is highly recommended and should include, anti-nDNA and anti-JAYLA. Performed By: #### 1 [id number], [id number] #### [facility] [address] [place] [address] Bowling Alley Attendant: Fercho Rojo MD Anti-Nuclear Ab Quant 1:80 Normal [facility] Comment on above: Order Comment: ASHLEY Q ordered by Discern Expert. Result Comment: 1:40 , 1:80 - considered to be a low titer. 2-3% of the normal population carries a low titer anti-nuclear antibody. 1:160, 1:320, 1:640, >1:640 - considered to be a moderate to high titer. Performed using the [facility] HEp-2000? IgG Fluorescent ASHLEY-Ro Test System. Performed By: #### 1 [id number], [id number] #### [facility] [address] [place] [address] Bowling Alley Attendant: Fercho Rojo MD ANTI DNAon 07-01-2024 ANTI-DNA Negative Normal [facility] Comment on above: Result Comment: This test is a screen, if positive refer to the quantitative test. Performed By: #### 1 [id number] #### [facility] [address] [place] [address] Bowling Alley Attendant: Fercho Rojo MD HEP B ABon 06-30-2024 Hepatitis B Surface Antibody Non-Reactive Normal [facility] Comment on above: Result Comment: - Th ifeoma Arias IM aHBs2 assay is limited to the detection of antibodies to Hepatitis B surface antigen in human serum and plasma - This assay does not differentiate between a vaccine-induced immune response and an immume response induced by infection with HBV. To determine if the anti-HBs response is due to vaccine or HBV infection, a total anti-HBc assay may be performed. Performed By: #### 1 73056, [id number], [id number], [id number] #### [facility] [address] [address] Bowling Alley Attendant: Fercho Rojo MD Hepatitis B Surface Antibody Quant 5.9 Normal [facility] Comment on above: Result Comment: Refe rence Interval: 9.9 IU/L or less ....... Not Immune 10.0 IU/L or greater ... Immune Results greater than 1,000.0 IU/L are reported as >1,000.0 IU/L. Immune: This patient has either had an antibody response to HBV vaccination, received a transfusion, or has recovered from HBV infection. This patient should be considered immune to hepatitis B. Not Immune: There is no evidence of recovery from hepatitis B infection or evidence of antibody response to HBV vaccination. Performed By: #### 1 82115, [id number], [id number], [id number] #### [facility] [address] [place] [address] Bowling Alley Attendant: Fercho Rojo MD HEP B AGon 06-30-2024 Hepatitis B Surface Antigen Non-Reactive Normal [facility] Comment on above: Result Comment: Nadia ents taking biotin supplements may have false negative results with this assay Performed By: #### 1 68575, [id number], [id number], [id number] #### [facility] [address] [place] [address] Bowling Alley Attendant: Fercho Rojo MD HEP C ABon 06-30-2024 Hepatitis C Antibody Non-Reactive Normal [facility] Comment on above: Performed By: #### 1 01940, [id number], [id number], [id number] #### [facility] [address] [place] [address] Bowling Alley Attendant: Fercho Rojo MD HEPBCOREAB IGMon 06-30-2024 Hepatitis B Core Antibody, IgM Non-Reactive Normal [facility] Comment on above: Result Comment: High levels of serum biotin may interfere with this test. Performed By: #### 1 [id number], [id number], [id number], [id number] #### [facility] [address] [place] [address] Bowling Alley Attendant: Fercho Rojo MD Neurology Visit Reporton Neurology Visit Report [facility] [address] [place] [address], [address] [place] [address] OFFICE VISIT Date of Service: 06/29/24 MR#: [id number] Acct: [id number] Name: CHASITY ARIAS Rep #: [id number] : 1965 Provider: Dr. Michael rivera MD Age/Sex: 58/F Location: [facility].BN Status: Signed [facility] Chief Complaint: Details: Interim History: Chasity returns for follow-up visit. She has a history of asthma, Annette's thyroiditis, hypothyroidism and systemic lupus erythematosus. She began to have headaches in 2019. Her initial headache was a right frontal headache that was preceded by a 10-minute episode of right eye scotoma that she described as a graying of her visual field. She had associated nausea. Over the following 2 years, she had about 3 more similar headaches. Emergency room records from 04/24/2021 indicate that on 04/21/2021, she developed a headache and right eye visual scotoma. Her visual impairment improved but did not resolve completely. She had associated nausea. Her frontal headaches that began on 04/21/2021 was subsequently continuous until 2022. Her visual impairment on 04/21/2021 began while performing yoga and arising from an inverted to an upright position. Her right eye visual impairment resolved over a period of 4 days. Her subsequent continuous headaches have been localized to the bifrontal head region. She has had associated photophobia, phonophobia and nausea. Her headaches fluctuate in severity. Severe headaches had occurred about 2 days/week. Since March 2021, she has continued to experience intermittent right eye rudolph scotomas. Acetaminophen was not of significant benefit. Bwgl-rpv-zbzyegp ibuprofen was of slight benefit. Topiramate, initiated for headache prophylaxis in 2021 was of some benefit however caused tingling and cognitive side effects. Divalproex DR, initiated in 2022, has been of some benefit for headache prophylaxis. In 2023 she had an increase in her headache frequency and her headaches were occurring daily. She then discontinued celecoxib and caffeine use and has had improvement of her headaches and she subsequently had about 2 days of headache per week and these are generally mild to moderate. Severe headaches had occurred about 1 day/month. She continues to experience intermittent scotomas and also experiences transient facial numbness with some of her headaches. Exposure to cold ambient temperature is a trigger for her headaches. She denied having any headaches prior to 1999. Sumatriptan was not of benefit for her headaches. Rizatriptan has been of some benefit for her headaches however she experiences sedation as a side effect. Ubrelvy lost efficacy and she had side effects of nausea and sedation. Nurtec ODT is of benefit for her headaches. Qcwx-laa-snvbqnx magnesium supplementation has been of some benefit for headache prophylaxis. Since mid May 2024, she has had an increase in her headache frequency and severity and for period of time was experiencing severe headaches daily. During this time she had reduced her caffeine consumption. Over the past week she has increased her caffeine consumption to 1 cup of coffee daily and has had some reduction of her headache severity though she continues to experience nearly daily headaches. She takes CellCept and hydroxychloroquine for systemic lupus erythematosus as prescribed by her shower attendant. She has had intermittent left-sided pulsatile tinnitus. 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 She had a fall in 2020 while performing [employer] and struck her head and was momentarily dazed. She has had some neck pain and low back pain. She is not experiencing radicular pain in the lower extremities. She has had numbness and weakness in the hands and had bilateral carpal tunnel surgery in 1999 and this was of benefit. 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 She has depression and anxiety. She has insomnia; she has trouble falling asleep and staying asleep during the night. Folic acid supplementation has been of benefit for hair loss. Physical Exam: Neuro: The patient is awake and alert and responds appropriately; speech is fluent Heart: Regular rate and rhythm Supplemental Info ASHLEY (05/31/2019): Negative ESR (12/24/2019): Normal. EKG (12/24/2019): Normal sinus rhythm; nonspecific T wave abnormality. Abnormal EKG. Magnesium, TSH (04/24/2021): TSH 0.03 (low) Head and neck CTA (04/24/2021): FINDINGS: Normal bilateral petrous carotid arteries.??? Normal right cavernous carotid artery with a normal supraclinoid bifurcation.??? Normal left cavernous carotid artery with a normal supraclinoid bifurcation. Normal right A1 segments of the anterior cerebral artery.??? Normal left A1 segments of the a (more content not included)... Normal [facility] Absolute lymphocyte countOrd ered By: Morgan Lanier on 06-11-2024 Lymphocytes Auto (Unsp spec) [#/Vol] 1.69 10*3/uL 0.83-4.51 [facility] Absolute neutrophil countOrd ered By: Morgan Lanier on 06-11-2024 Neutrophils (Bld) [#/Vol] 1.5 10*3/uL Low 2.0-7.7 [facility] Anion gap in Serum or Plasma Ordered By: Morgan Lanier on 06-11-2024 Anion gap [Moles/Vol] 12 mmol/L 5-[address] [facility] Automated lymphocyte count a s percentage of total leukocytesOrdered By: Morgan Lanier on 06-11-2024 Lymphocytes/100 WBC Auto (Unsp spec) 45.8 % High 19-41 [facility] BUN/creatinine ratioOrdered By: Morgan Lanier on 06-11-2024 Urea nitrogen/Creatinine [Mass ratio] 9.3 mg/mg Low 10-20 [facility] Basophil percentageOrdered B y: Morgan Lanier on 06-11-2024 Basophils/100 WBC (Bld) 1.1 % High 0-1 [facility] Bilirubin, totalOrdered By: Morgan Lanier on 06-11-2024 Bilirubin [Mass/Vol] 0.61 mg/dL 0.00-1.30 [facility] CBC W/Diff, Automatedon 05-29 Absolute Lymph 1.69 X10 3/uL Normal 0.83-4.51 [facility] Comment on above: Performed By: #### L 501.9985, L400.0001, L501.6710, L500.2500, L100.0100 #### [facility] [address] [place], [address] Absolute Neut 1.5 X10 3/uL Low 2.0-7.7 [facility] Comment on above: Performed By: #### L [id number], L400.0001, L501.6710, L500.2500, L100.0100 #### [facility] [address] [place], [address] Basophils/100 WBC (Bld) 1.1 % High 0-1 [facility] Comment on above: Performed By: #### L 501.9985, L400.0001, L501.6710, L500.2500, L100.0100 #### [facility] [address] [place], [address] Eosinophils/100 WBC (Bld) 2.4 % Normal 0-5 [facility] Comment on above: Performed By: #### L 501.9985, L400.0001, L501.6710, L500.2500, L100.0100 #### [facility] [address] [place], [address] Erythrocyte distribution width (RBC) [Ratio] 13.5 % Normal 11.6-14.6 [facility] Comment on above: Performed By: #### L 501.9985, L400.0001, L501.6710, L500.2500, L100.0100 #### [facility] [address] [place], [address] Hematocrit (Bld) [Volume fraction] 35.0 % Low 37-47 [facility] Comment on above: Performed By: #### L 501.9985, L400.0001, L501.6710, L500.2500, L100.0100 #### [facility] [address] [place], [address] Hemoglobin (Bld) [Mass/Vol] 11.5 g/dL Low 12.0-15.0 [facility] Comment on above: Performed By: #### L 501.9985, L400.0001, L501.6710, L500.2500, L100.0100 #### [facility] [address] [place], [address] IG% 0.300 Normal 0.0-0.9 [facility] Comment on above: Result Comment: IG% - Immature Granulocytes (promyelocytes, myelocytes and metamyelocytes) > 1% indicates that a LEFT SHIFT is Present. Performed By: #### L 501.9985, L400.0001, L501.6710, L500.2500, L100.0100 #### [facility] [address] [place], [address] Lymphocytes/100 WBC (Bld) 45.8 % High 19-41 [facility] Comment on above: Performed By: #### L 501.9985, L400.0001, L501.6710, L500.2500, L100.0100 #### [facility] [address] [place], [address] MCH (RBC) [Entitic mass] 30.7 pg Normal 27.0-32.0 [facility] Comment on above: Performed By: #### L 501.9985, L400.0001, L501.6710, L500.2500, L100.0100 #### [facility] [address] [place], [address] MCHC (RBC) [Mass/Vol] 32.9 g/dL Normal 32-[address] [facility] Comment on above: Performed By: #### L 501.9985, L400.0001, L501.6710, L500.2500, L100.0100 #### [facility] [address] [place], [address] MCV (RBC) [Entitic vol] 93.3 fL Normal 81-99 [facility] Comment on above: Performed By: #### L 501.9985, L400.0001, L501.6710, L500.2500, L100.0100 #### [facility] [address] [place], [address] Monocytes/100 WBC (Bld) 10.8 % High 0-10 [facility] Comment on above: Performed By: #### L 501.9985, L400.0001, L501.6710, L500.2500, L100.0100 #### [facility] [address] [place] [place], [address] Neutrophils/100 WBC (Bld) 39.6 % Low 47-70 [facility] Comment on above: Performed By: #### L 501.9985, L400.0001, L501.6710, L500.2500, L100.0100 #### [facility] [address] [place], [address] Nucleated RBC (Bld) [#/Vol] 0 10*3/uL Normal 0-5 [facility] Comment on above: Performed By: #### L 501.9985, L400.0001, L501.6710, L500.2500, L100.0100 #### [facility] [address] [place], [address] Platelet mean volume (Bld) [Entitic vol] 11.5 fL Normal 6.2-12.0 [facility] Comment on above: Performed By: #### L 501.9985, L400.0001, L501.6710, L500.2500, L100.0100 #### [facility] [address] [place], [address] Platelets (Bld) [#/Vol] 242 10*3/uL Normal 150-450 [facility] Comment on above: Performed By: #### L 501.9985, L400.0001, L501.6710, L500.2500, L100.0100 #### [facility] [address] [place], [address] RBC (Bld) [#/Vol] 3.75 10*6/uL Low 4.2-5.4 [facility] Comment on above: Performed By: #### L 501.9985, L400.0001, L501.6710, L500.2500, L100.0100 #### [facility] [address] [place], [address] RDW SD 46.1 fl High 35.1-43.9 [facility] Comment on above: Performed By: #### L 501.9985, L400.0001, L501.6710, L500.2500, L100.0100 #### [facility] [address] [place], [address] WBC (Bld) [#/Vol] 3.7 10*3/uL Low 4.4-11.0 [facility] Comment on above: Performed By: #### L 501.9985, L400.0001, L501.6710, L500.2500, L100.0100 #### [facility] [address] [place], [address] CRPon 06-11-2024 C-REACTIVE PROT < 3.00 Normal 0.0-3.0 [facility] Comment on above: Performed By: #### L 501.9985, L400.0001, L501.6710, L500.2500, L100.0100 #### [facility] [address] [place], [address] CRP [Mass/Vol]Ordered By: Akosua Lanier on 06-11-2024 C-Reactive Protein Extended Range < 3.00 mg/L 0.0-3.0 [facility] Carbon dioxide, total [Moles /volume] in Central venous bloodOrdered By: Morgan Lanier on 06-11-2024 CO2 [Moles/Vol] 24.9 mmol/L 21.0-32.0 [facility] Chloride assayOrdered By: Akosua Lanier on 06-11-2024 Chloride [Moles/Vol] 103 mmol/L 98-108 [facility] Comprehensive Metabolic Prof ilon 06-11-2024 Albumin [Mass/Vol] 4.3 g/dL Normal 3.5-5.0 [facility] Comment on above: Performed By: #### L 501.9985, L400.0001, L501.6710, L500.2500, L100.0100 #### [facility] [address] [place], [address] Albumin/Globulin [Mass ratio] 1.6 {ratio} Normal 0.9-2.4 [facility] Comment on above: Performed By: #### L 501.9985, L400.0001, L501.6710, L500.2500, L100.0100 #### [facility] [address] [place], [address] ALK PHOS 54 U/L Normal 35-104 [facility] Comment on above: Performed By: #### L 501.9985, L400.0001, L501.6710, L500.2500, L100.0100 #### [facility] [address] [place], [address] ALT [Catalytic activity/Vol] 14 U/L Normal <=34 [facility] Comment on above: Performed By: #### L 501.9985, L400.0001, L501.6710, L500.2500, L100.0100 #### [facility] [address] [place], [address] AST [Catalytic activity/Vol] 24 U/L Normal <=31 [facility] Comment on above: Performed By: #### L 501.9985, L400.0001, L501.6710, L500.2500, L100.0100 #### [facility] [address] [place], [address] Bilirubin [Mass/Vol] 0.61 mg/dL Normal 0.00-1.30 [facility] Comment on above: Performed By: #### L 501.9985, L400.0001, L501.6710, L500.2500, L100.0100 #### [facility] [address] [place], [address] BUN/CRE 9.3 RATIO Low 10-20 [facility] Comment on above: Performed By: #### L 501.9985, L400.0001, L501.6710, L500.2500, L100.0100 #### [facility] [address] [place], [address] Calcium [Mass/Vol] 9.4 mg/dL Normal 7.6-11.0 [facility] Comment on above: Performed By: #### L 501.9985, L400.0001, L501.6710, L500.2500, L100.0100 #### [facility] [address] [place], [address] Chloride [Moles/Vol] 103 mmol/L Normal 98-108 [facility] Comment on above: Performed By: #### L 501.9985, L400.0001, L501.6710, L500.2500, L100.0100 #### [facility] [address] [place], [address] CO2 [Moles/Vol] 24.9 mmol/L Normal 21.0-32.0 [facility] Comment on above: Performed By: #### L 501.9985, L400.0001, L501.6710, L500.2500, L100.0100 #### [facility] [address] [place], [address] Creatinine [Mass/Vol] 0.62 mg/dL Low 0.70-1.[address] [facility] Comment on above: Performed By: #### L 501.9985, L400.0001, L501.6710, L500.2500, L100.0100 #### [facility] [address] [place], [address] GAP 12 Normal 5-15 [facility] Comment on above: Performed By: #### L 501.9985, L400.0001, L501.6710, L500.2500, L100.0100 #### [facility] [address] [place], [address] GFR/1.73 sq M.predicted among non-blacks MDRD (S/P/Bld) [Vol rate/Area] 104 mL/min/{1.73_m2} Normal >60 [facility] Comment on above: Result Comment: mL/m in/1.73m2 CKD-EPI Creatinine Equation (2020) Performed By: #### L 501.9985, L400.0001, L501.6710, L500.2500, L100.0100 #### [facility] [address] [place], [address] Globulin (S) [Mass/Vol] 2.6 g/dL Normal 2.2-4.2 [facility] Comment on above: Performed By: #### L 501.9985, L400.0001, L501.6710, L500.2500, L100.0100 #### [facility] [address] [place], [address] Glucose [Mass/Vol] 88 mg/dL Normal 70-99 [facility] Comment on above: Performed By: #### L 501.9985, L400.0001, L501.6710, L500.2500, L100.0100 #### [facility] [address] [place], [address] Potassium [Moles/Vol] 4.3 mmol/L Normal 3.3-5.[address] [facility] Comment on above: Performed By: #### L 501.9985, L400.0001, L501.6710, L500.2500, L100.0100 #### [facility] [address] [place], [address] Sodium [Moles/Vol] 139 mmol/L Normal 133-145 [facility] Comment on above: Performed By: #### L 501.9985, L400.0001, L501.6710, L500.2500, L100.0100 #### [facility] [address] [place], [address] T PROT 7.0 g/dL Normal 5.9-8.4 [facility] Comment on above: Performed By: #### L 501.9985, L400.0001, L501.6710, L500.2500, L100.0100 #### [facility] [address] [place], [address] Urea nitrogen [Mass/Vol] 6 mg/dL Normal 4-19 [facility] Comment on above: Performed By: #### L 501.9985, L400.0001, L501.6710, L500.2500, L100.0100 #### [facility] [address] [place], [address] Eosinophil percentageOrdered By: Morgan Lanier on 06-11-2024 Eosinophils/100 WBC (Bld) 2.4 % 0-5 [facility] Erythrocyte distribution wid th ratioOrdered By: Morgan Lanier on 06-11-2024 Erythrocyte distribution width (RBC) [Ratio] 13.5 % 11.6-14.6 [facility] Erythrocyte distribution wid th standard deviationOrdered By: Morgan Lanier on 06-11-2024 Erythrocyte distribution width (RBC) [Entitic vol] 46.1 fL High 35.1-43.9 [facility] Erythrocyte distribution width (RBC) [Ratio] 46.1 fl High 35.1-43.9 [facility] GFR/1.73 sq M.predicted mauricio g non-blacks MDRD (S/P/Bld) [Vol rate/Area]Ordered By: Morgan Lanier on 06-11-2024 Estimated GFR (MDRD) Non-Af Amer [address] >60 [facility] Comment on above: mL/min/1.73m2 CKD-EP I Creatinine Equation (2020) Glomerular filtration rate ( GFR) estimation/1.73 sq m using serum, plasma, or whole bOrdered By: Morgan Lanier on 06-11-2024 GFR/1.73 sq M.predicted among non-blacks MDRD (S/P/Bld) [Vol rate/Area] 104 mL/min/{1.73_m2} >60 [facility] Comment on above: mL/min/1.73m2 CKD-EP I Creatinine Equation (2020) Hematocrit Auto (Bld) [Volum e fraction]Ordered By: Morgan Lanier on 06-11-2024 Hematocrit (Bld) [Volume fraction] 35.0 % Low 37-47 [facility] Hemoglobin measurementOrdere d By: Morgan Lanier on 06-11-2024 Hemoglobin (Bld) [Mass/Vol] 11.5 g/dL Low 12.0-15.0 [facility] Immature granulocytes/100 WB C Auto (Bld)Ordered By: Morgan Lanier on 06-11-2024 Immature granulocytes/100 WBC (Bld) 0.300 % 0.0-0.9 [facility] Comment on above: IG% - Immature Granu locytes (promyelocytes, myelocytes and metamyelocytes) > 1% indicates that a LEFT SHIFT is Present. Laboratory - Chemistry and C hemistry - challengeOrdered By: Morgan Lanier on 06-11-2024 AST [Catalytic activity/Vol] 24 U/L <32 [facility] Lymphocytes Auto (Unsp spec) [#/Vol]Ordered By: Morgan Lanier on 06-11-2024 Lymphocytes (Bld) [#/Vol] 1.69 10*3/uL 0.83-4.51 [facility] Lymphocytes/100 WBC Auto (Un sp spec)Ordered By: Morgan Lanier on 06-11-2024 Lymphocytes/100 WBC (Bld) 45.8 % High 19-41 [facility] MCV (mean corpuscular volume ) determinationOrdered By: Morgan Lanier on 06-11-2024 MCV (RBC) [Entitic vol] 93.3 fL 81-99 [facility] Mean corpuscular hemoglobin (MCH) determinationOrdered By: Morgan Lanier on 06-11-2024 MCH (RBC) [Entitic mass] 30.7 pg 27.0-32.0 [facility] Mean corpuscular hemoglobin concentration (MCHC) determinationOrdered By: Morgan Lanier on 06-11-2024 MCHC (RBC) [Mass/Vol] 32.9 g/dL 32-[address] [facility] Mean platelet volume determi nationOrdered By: Morgan Lanier on 06-11-2024 Platelet mean volume (Bld) [Entitic vol] 11.5 fL 6.2-12.0 [facility] Monocyte percentageOrdered B y: Morgan Lanier on 06-11-2024 Monocytes/100 WBC (Bld) 10.8 % High 0-10 [facility] Neutrophil percentageOrdered By: Morgan Lanier on 06-11-2024 Neutrophils/100 WBC (Bld) 39.6 % Low 47-70 [facility] Nucleated red blood cell per centageOrdered By: Morgan Lanier on 06-11-2024 Nucleated RBC/100 WBC (Bld) [Ratio] 0 % 0-5 [facility] Platelet countOrdered By: Akosua Lanier on 06-11-2024 Platelets (Bld) [#/Vol] 242 10*3/uL 150-450 [facility] Potassium (Unsp spec) [Mass/ Vol]Ordered By: Morgan Lanier on 06-11-2024 Potassium [Moles/Vol] 4.3 mmol/L 3.3-5.[address] [facility] Potassium measurement (mass/ volume)Ordered By: Morgan Lanier on 06-11-2024 Potassium (Unsp spec) [Mass/Vol] 4.3 mmol/L 3.3-5.1 [facility] RBC Auto (Bld) [#/Vol]Ordere d By: Morgan Lanier on 06-11-2024 RBC (Bld) [#/Vol] 3.75 10*6/uL Low 4.2-5.4 [facility] Serum creatinine measurement (mass/volume)Ordered By: Morgan Lanier on 06-11-2024 Creatinine [Mass/Vol] 0.62 mg/dL Low 0.70-1.[address] [facility] Serum globulin measurementOr dered By: Morgan Lanier on 06-11-2024 Globulin (S) [Mass/Vol] 2.6 g/dL 2.2-4.2 [facility] Serum glucose measurement (m ass/volume)Ordered By: Morgan Lanier on 06-11-2024 Glucose [Mass/Vol] 88 mg/dL 70-99 [facility] Serum or plasma C reactive p rotein measurement (mass/volume)Ordered By: Morgan Lanier on 06-11-2024 CRP [Mass/Vol] mg/L 0.0-3.0 [facility] Serum or plasma alanine kulkarni otransferase (ALT) measurementOrdered By: Morgan Lanier on 06-11-2024 ALT [Catalytic activity/Vol] 14 U/L <35 [facility] Serum or plasma albumin nicole urement (mass/volume)Ordered By: Morgan Lanier on 06-11-2024 Albumin [Mass/Vol] 4.3 g/dL 3.5-5.0 [facility] Serum or plasma albumin/glob ulin mass ratioOrdered By: Morgan Lanier on 06-11-2024 Albumin/Globulin [Mass ratio] 1.6 {ratio} 0.9-2.4 [facility] Serum or plasma alkaline bobby sphatase measurementOrdered By: Morgan Lanier on 06-11-2024 ALP [Catalytic activity/Vol] 54 U/L 35-104 [facility] Serum or plasma calcium nicole urement (mass/volume)Ordered By: Morgan Lanier on 06-11-2024 Calcium [Mass/Vol] 9.4 mg/dL 7.6-11.0 [facility] Serum or plasma urea nitroge n measurement (mass/volume)Ordered By: Morgan Lanier on 06-11-2024 Urea nitrogen [Mass/Vol] 6 mg/dL 4-19 [facility] Sodium levelOrdered By: Morgan Lanier on 06-11-2024 Sodium [Moles/Vol] 139 mmol/L 133-145 [facility] Total proteinOrdered By: Morgan Lanier on 06-11-2024 Protein [Mass/Vol] 7.0 g/dL 5.9-8.4 [facility] White blood cell (WBC) count Ordered By: Morgan Lanier on 06-11-2024 WBC (Bld) [#/Vol] 3.7 10*3/uL Low 4.4-11.0 [facility] Foot min 3 Viewson Foot min 3 Views [facility] [address] [place] [id number] Foot min 3 Views MR#: [id number] Acct: [id number] Name: CHASITY ARIAS Rep #: [id number] : 1965 F 58 From: Fabián Hudson MD PCP: Dr. Ruchi Wu MD Status: REG CLI Study: Foot min 3 Views Date of Exam: 05/04/24 Exam# [id number] Ordering Dr: Nya Negron DPMaciej EXAM: XR Right Foot Complete, 3 or More Views CLINICAL INDICATION: TECHNIQUE: Frontal, lateral and oblique views of the right foot. COMPARISON: No relevant prior studies available. FINDINGS: BONES/JOINTS: Apparent widening of the Lisfranc joint, may be secondary to projection. Correlation with point tenderness is recommended. No acute fracture. No dislocation. SOFT TISSUES: Unremarkable. No radiopaque foreign body. RAD/Foot min 3 Views IMPRESSION: Apparent widening of the Lisfranc joint, may be secondary to projection. Correlation with point tenderness is recommended. Reading Location: RAD-LE-NL CC: ENRRIQUE Negron; Dr. Ruchi Wu MD Radiologic Tech: Signed Normal [facility] Absolute lymphocyte countOrd ered By: Morgan Lanier on 04-29-2024 Lymphocytes Auto (Unsp spec) [#/Vol] 1.69 10*3/uL 0.83-4.51 [facility] Absolute neutrophil countOrd ered By: Morgan Lanier on 04-29-2024 Neutrophils (Bld) [#/Vol] 1.6 10*3/uL Low 2.0-7.7 [facility] Automated lymphocyte count a s percentage of total leukocytesOrdered By: Morgan Lanier on 04-29-2024 Lymphocytes/100 WBC Auto (Unsp spec) 44.5 % High 19-41 [facility] Basic Metabolic Profile (BMP )on 04-29-2024 BUN/CRE 7.4 RATIO Low 10-20 [facility] Comment on above: Order Comment: ADD O N BMP Performed By: #### L 501.9985, L400.0001, L501.6710, L500.2500, L100.0100 #### [facility] [address] [place], [address] CA,Total 9.7 mg/dL Normal 8.5-10.1 [facility] Comment on above: Order Comment: ADD O N BMP Performed By: #### L 501.9985, L400.0001, L501.6710, L500.2500, L100.0100 #### [facility] [address] [place], [address] Chloride [Moles/Vol] 101 mmol/L Normal 98-107 [facility] Comment on above: Order Comment: ADD O N BMP Performed By: #### L 501.9985, L400.0001, L501.6710, L500.2500, L100.0100 #### [facility] [address] [place], [address] CO2 [Moles/Vol] 25.0 mmol/L Normal 21.0-32.0 [facility] Comment on above: Order Comment: ADD O N BMP Performed By: #### L 501.9985, L400.0001, L501.6710, L500.2500, L100.0100 #### [facility] [address] [place], [address] Creatinine [Mass/Vol] 0.67 mg/dL Normal 0.55-1.[address] [facility] Comment on above: Order Comment: ADD O N BMP Result Comment: The validity of the calculated GFR GFRAA in patients over 70 years has not been determined. Clinical correlation is essential. Performed By: #### L 501.9985, L400.0001, L501.6710, L500.2500, L100.0100 #### [facility] [address] [place], [address] EST GFR - AA 116 mL/min Normal >60 [facility] Comment on above: Order Comment: ADD O N BMP Result Comment: Afri can Cymraes GFR Calc Performed By: #### L 501.9985, L400.0001, L501.6710, L500.2500, L100.0100 #### [facility] [address] [place], [address] GAP 9 Normal 5-15 [facility] Comment on above: Order Comment: ADD O N BMP Performed By: #### L 501.9985, L400.0001, L501.6710, L500.2500, L100.0100 #### [facility] [address] [place], [address] GFR/1.73 sq M.predicted among non-blacks MDRD (S/P/Bld) [Vol rate/Area] 96 mL/min/{1.73_m2} Normal >60 [facility] Comment on above: Order Comment: ADD O N BMP Result Comment: Non- GFR Calc Performed By: #### L 501.9985, L400.0001, L501.6710, L500.2500, L100.0100 #### [facility] [address] [place], [address] Glucose [Mass/Vol] 90 mg/dL Normal 74-106 [facility] Comment on above: Order Comment: ADD O N BMP Performed By: #### L 501.9985, L400.0001, L501.6710, L500.2500, L100.0100 #### [facility] [address] [place], [address] Potassium [Moles/Vol] 3.7 mmol/L Normal 3.5-5.[address] [facility] Comment on above: Order Comment: ADD O N BMP Performed By: #### L 501.9985, L400.0001, L501.6710, L500.2500, L100.0100 #### [facility] [address] [place], [address] Sodium [Moles/Vol] 136 mmol/L Normal 136-145 [facility] Comment on above: Order Comment: ADD O N BMP Performed By: #### L 501.9985, L400.0001, L501.6710, L500.2500, L100.0100 #### [facility] [address] [place], [address] Urea nitrogen [Mass/Vol] 5 mg/dL Low 7-18 [facility] Comment on above: Order Comment: ADD O N BMP Performed By: #### L 501.9985, L400.0001, L501.6710, L500.2500, L100.0100 #### [facility] [address] [place], [address] Basophil percentageOrdered B y: Morgan Lanier on 04-29-2024 Basophils/100 WBC (Bld) 1.8 % High 0-1 [facility] Bilirubin Test strip Ql (U)O rdered By: Morgan Lanier on 04-29-2024 Bilirubin Ql (U) Negative Negative [facility] Blood urea nitrogen (BUN)/cr eatinine ratioOrdered By: Morgan Lanier on 04-29-2024 Urea nitrogen/Creatinine [Mass ratio] 7.4 mg/mg Low 10-20 [facility] C-reactive protein measureme nt by high sensitivity methodOrdered By: Morgan Lanier on 04-29-2024 C-Reactive Protein Extended Range < 2.90 mg/L 0.0-3.0 [facility] Comment on above: C-Reactive Protein ( CRP) provides useful information for thediagnosis, therapy and monitoring of inflammatory processesand associated diseases. For the evaluation of Relative Riskfor Cardiovascular Disease, a High Sensitivity CRP (HSCRP)should be ordered. CBC W/Diff, Automatedon 04-02 Absolute Lymph 1.69 X10 3/uL Normal 0.83-4.51 [facility] Comment on above: Performed By: #### L 501.9985, L400.0001, L501.6710, L500.2500, L100.0100 #### [facility] [address] [place], [address] Absolute Neut 1.6 X10 3/uL Low 2.0-7.7 [facility] Comment on above: Performed By: #### L 501.9985, L400.0001, L501.6710, L500.2500, L100.0100 #### [facility] [address] [place], [address] Basophils/100 WBC (Bld) 1.8 % High 0-1 [facility] Comment on above: Performed By: #### L 501.9985, L400.0001, L501.6710, L500.2500, L100.0100 #### [facility] [address] [place], [address] Eosinophils/100 WBC (Bld) 1.8 % Normal 0-5 [facility] Comment on above: Performed By: #### L 501.9985, L400.0001, L501.6710, L500.2500, L100.0100 #### [facility] [address] [place], [address] Erythrocyte distribution width (RBC) [Ratio] 13.6 % Normal 11.6-14.6 [facility] Comment on above: Performed By: #### L 501.9985, L400.0001, L501.6710, L500.2500, L100.0100 #### [facility] [address] [place], [address] Hematocrit (Bld) [Volume fraction] 38.0 % Normal 37-47 [facility] Comment on above: Performed By: #### L 501.9985, L400.0001, L501.6710, L500.2500, L100.0100 #### [facility] [address] [place], [address] Hemoglobin (Bld) [Mass/Vol] 12.0 g/dL Normal 12.0-15.0 [facility] Comment on above: Performed By: #### L 501.9985, L400.0001, L501.6710, L500.2500, L100.0100 #### [facility] [address] [place], [address] IG% 0.000 Normal 0.0-0.9 [facility] Comment on above: Result Comment: IG% - Immature Granulocytes (promyelocytes, myelocytes and metamyelocytes) > 1% indicates that a LEFT SHIFT is Present. Performed By: #### L 501.9985, L400.0001, L501.6710, L500.2500, L100.0100 #### [facility] [address] [place], [address] Lymphocytes/100 WBC (Bld) 44.5 % High 19-41 [facility] Comment on above: Performed By: #### L 501.9985, L400.0001, L501.6710, L500.2500, L100.0100 #### [facility] [address] [place], [address] MCH (RBC) [Entitic mass] 29.2 pg Normal 27.0-32.0 [facility] Comment on above: Performed By: #### L 501.9985, L400.0001, L501.6710, L500.2500, L100.0100 #### [facility] [address] [place], [address] MCHC (RBC) [Mass/Vol] 31.6 g/dL Low 32-[address] [facility] Comment on above: Performed By: #### L 501.9985, L400.0001, L501.6710, L500.2500, L100.0100 #### [facility] [address] [place], [address] MCV (RBC) [Entitic vol] 92.5 fL Normal 81-99 [facility] Comment on above: Performed By: #### L 501.9985, L400.0001, L501.6710, L500.2500, L100.0100 #### [facility] [address] [place], [address] Monocytes/100 WBC (Bld) 10.5 % High 0-10 [facility] Comment on above: Performed By: #### L 501.9985, L400.0001, L501.6710, L500.2500, L100.0100 #### [facility] [address] [place], [address] Neutrophils/100 WBC (Bld) 41.4 % Low 47-70 [facility] Comment on above: Performed By: #### L 501.9985, L400.0001, L501.6710, L500.2500, L100.0100 #### [facility] [address] [place], [address] Nucleated RBC (Bld) [#/Vol] 0 10*3/uL Normal 0-5 [facility] Comment on above: Performed By: #### L 501.9985, L400.0001, L501.6710, L500.2500, L100.0100 #### [facility] [address] [place], [address] Platelet mean volume (Bld) [Entitic vol] 11.6 fL Normal 6.2-12.0 [facility] Comment on above: Performed By: #### L 501.9985, L400.0001, L501.6710, L500.2500, L100.0100 #### [facility] [address] [place], [address] Platelets (Bld) [#/Vol] 288 10*3/uL Normal 150-450 [facility] Comment on above: Performed By: #### L 501.9985, L400.0001, L501.6710, L500.2500, L100.0100 #### [facility] [address] [place], [address] RBC (Bld) [#/Vol] 4.11 10*6/uL Low 4.2-5.4 [facility] Comment on above: Performed By: #### L 501.9985, L400.0001, L501.6710, L500.2500, L100.0100 #### [facility] [address] [place], [address] RDW SD 46.1 fl High 35.1-43.9 [facility] Comment on above: Performed By: #### L 501.9985, L400.0001, L501.6710, L500.2500, L100.0100 #### [facility] [address] [place], [address] WBC (Bld) [#/Vol] 3.8 10*3/uL Low 4.4-11.0 [facility] Comment on above: Performed By: #### L 501.9985, L400.0001, L501.6710, L500.2500, L100.0100 #### [facility] [address] [place], [place], [address] CRPon 04-29-2024 C-REACTIVE PROT < 2.90 Normal 0.0-3.0 [facility] Comment on above: Result Comment: C-Re active Protein (CRP) provides useful information for the diagnosis, therapy and monitoring of inflammatory processes and associated diseases. For the evaluation of Relative Risk for Cardiovascular Disease, a High Sensitivity CRP (HSCRP) should be ordered. Performed By: #### L 501.9985, L400.0001, L501.6710, L500.2500, L100.0100 #### [facility] [address] [place], [place], [id number] Carbon dioxide measurementOr dered By: Morgan Lanier on 04-29-2024 CO2 [Moles/Vol] 25.0 mmol/L 21.0-32.0 [facility] Chloride measurementOrdered By: Morgan Lanier on 04-29-2024 Chloride [Moles/Vol] 101 mmol/L 98-107 [facility] Eosinophil percentageOrdered By: Morgan Lanier on 04-29-2024 Eosinophils/100 WBC (Bld) 1.8 % 0-5 [facility] Epithelial cells.squamous LM Ql (Urine sed)Ordered By: Morgan Lanier on 04-29-2024 Epithelial cells.squamous LM.HPF (Urine sed) [#/Area] 0 /[HPF] 5-10 [facility] Erythrocyte distribution wid th ratioOrdered By: Morgan Lanier on 04-29-2024 Erythrocyte distribution width (RBC) [Ratio] 13.6 % 11.6-14.6 [facility] Erythrocyte distribution wid th standard deviationOrdered By: Morgan Lanier on 04-29-2024 Erythrocyte distribution width (RBC) [Entitic vol] 46.1 fL High 35.1-43.9 [facility] Erythrocyte distribution width (RBC) [Ratio] 46.1 fl High 35.1-43.9 [facility] Estimated glomerular filtrat ion rate (GFR) AmericanOrdered By: Morgan Lanier on 04-29-2024 Estimated GFR (MDRD) Amer 116 mL/min >60 [facility] Comment on above: GFR Calc Glomerular filtration rate ( GFR) estimationOrdered By: Morgan Lanier on 04-29-2024 Estimated GFR (MDRD) Non-Af Amer 96 mL/min >60 [facility] Comment on above: Non- GFR Calc GFR/1.73 sq M.predicted among non-blacks MDRD (S/P/Bld) [Vol rate/Area] 96 mL/min/{1.73_m2} >60 [facility] Comment on above: Non- GFR Calc Glucose Ql (U)Ordered By: Akosua Lanier on 04-29-2024 Urine Glucose (UA) Normal mg/dl Normal [facility] Glucose measurementOrdered B y: Morgan Lanier on 04-29-2024 Glucose [Mass/Vol] 90 mg/dL 74-106 [facility] Hematocrit Auto (Bld) [Volum e fraction]Ordered By: Morgan Lanier on 04-29-2024 Hematocrit (Bld) [Volume fraction] 38.0 % 37-47 [facility] Hemoglobin A1con 04-29-2024 HbA1c (Bld) [Mass fraction] 5.3 % Normal 3.8-5.6 [facility] Comment on above: Result Comment: Norm al < 5.7 % Prediabetic 5.7 - 6.4 % Diabetic >or= 6.5 % Please note range changes. Performed By: #### L 501.9985, L400.0001, L501.6710, L500.2500, L100.0100 #### [facility] [address] [place] [address]. [place], [place], [id number] Hemoglobin A1c percentageOrd ered By: Morgan Lanier on 04-29-2024 HbA1c (Bld) [Mass fraction] 5.3 % 3.8-5.6 [facility] Comment on above: Normal < 5.7 % Predi abetic 5.7 - 6.4 % Diabetic >or= 6.5 % Please note range changes. Hemoglobin measurementOrdere d By: Morgan Lanier on 04-29-2024 Hemoglobin (Bld) [Mass/Vol] 12.0 g/dL 12.0-15.0 [facility] Immature granulocytes/100 WB C Auto (Bld)Ordered By: Morgan Lanier on 04-29-2024 Immature granulocytes/100 WBC (Bld) 0.000 % 0.0-0.9 [facility] Comment on above: IG% - Immature Granu locytes (promyelocytes, myelocytes and metamyelocytes) > 1% indicates that a LEFT SHIFT is Present. Ketones Test strip Ql (U)Ord ered By: Morgan Lanier on 04-29-2024 Ketones Ql (U) Negative Negative [facility] Lymphocytes Auto (Unsp spec) [#/Vol]Ordered By: Morgan Lanier on 04-29-2024 Lymphocytes (Bld) [#/Vol] 1.69 10*3/uL 0.83-4.51 [facility] Lymphocytes/100 WBC Auto (Un sp spec)Ordered By: Morgan Lanier on 04-29-2024 Lymphocytes/100 WBC (Bld) 44.5 % High 19-41 [facility] MCV (mean corpuscular volume ) determinationOrdered By: Morgan Lanier on 04-29-2024 MCV (RBC) [Entitic vol] 92.5 fL 81-99 [facility] Mean corpuscular hemoglobin (MCH) determinationOrdered By: Morgan Lanier on 04-29-2024 MCH (RBC) [Entitic mass] 29.2 pg 27.0-32.0 [facility] Mean corpuscular hemoglobin concentration (MCHC) determinationOrdered By: Morgan Lanier on 04-29-2024 MCHC (RBC) [Mass/Vol] 31.6 g/dL Low 32-[address] [facility] Mean platelet volume determi nationOrdered By: Morgan Lanier on 04-29-2024 Platelet mean volume (Bld) [Entitic vol] 11.6 fL 6.2-12.0 [facility] Microscopic analysis of urin e for red blood cells (RBC)Ordered By: Morgan Lanier on 04-29-2024 Microscopic analysis of urine for red blood cells (RBC) 0 SEEN /hpf 0-5 [facility] Urine RBC 0 SEEN /hpf 0-5 [facility] Monocyte percentageOrdered B y: Morgan Lanier on 04-29-2024 Monocytes/100 WBC (Bld) 10.5 % High 0-10 [facility] Mucus LM Ql (Urine sed)Order ed By: Morgan Lanier on 04-29-2024 Mucus Ql (Urine sed) 0 SEEN /hpf [facility] Neutrophil percentageOrdered By: Morgan Lanier on 04-29-2024 Neutrophils/100 WBC (Bld) 41.4 % Low 47-70 [facility] Nitrite Test strip Ql (U)Ord ered By: Morgan Lanier on 04-29-2024 Nitrite Ql (U) Negative Negative [facility] Nucleated red blood cell per centageOrdered By: Morgan Lanier on 04-29-2024 Nucleated RBC/100 WBC (Bld) [Ratio] 0 % 0-5 [facility] Platelet countOrdered By: Akosua Lanier on 04-29-2024 Platelets (Bld) [#/Vol] 288 10*3/uL 150-450 [facility] Potassium measurementOrdered By: Morgan Lanier on 04-29-2024 Potassium [Moles/Vol] 3.7 mmol/L 3.5-5.[address] [facility] Protein Test strip Ql (U)Ord ered By: Morgan Lanier on 04-29-2024 Protein Ql (U) Negative Negative [facility] RBC Auto (Bld) [#/Vol]Ordere d By: Morgan Lanier on 04-29-2024 RBC (Bld) [#/Vol] 4.11 10*6/uL Low 4.2-5.4 [facility] Serum anion gap measurementO rdered By: Morgan Lanier on 04-29-2024 Anion gap [Moles/Vol] 9 mmol/L 5-[address] [facility] Serum or plasma calcium nicole urement (mass/volume)Ordered By: Morgan Lanier on 04-29-2024 Calcium [Mass/Vol] 9.7 mg/dL 8.5-10.1 [facility] Serum or plasma creatinine m easurement (mass/volume)Ordered By: Morgan Lanier on 04-29-2024 Creatinine [Mass/Vol] 0.67 mg/dL 0.55-1.[address] [facility] Comment on above: The validity of the calculated GFR & GFRAA in patients over 70 years has not been determined. Clinical correlation is essential. Serum or plasma urea nitroge n measurement (mass/volume)Ordered By: Morgan Lanier on 04-29-2024 Urea nitrogen [Mass/Vol] 5 mg/dL Low 7-18 [facility] Sodium levelOrdered By: Morgan Lanier on 04-29-2024 Sodium [Moles/Vol] 136 mmol/L 136-145 [facility] Squamous epithelial cells de tection in urine sediment by light microscopyOrdered By: Morgan Lanier on 04-29-2024 Epithelial cells.squamous LM Ql (Urine sed) 0 SEEN /hpf 5-10 [facility] Urinalysis, Completeon 04-29 WBC 0-5 SEEN Normal 0-5 [facility] Comment on above: Order Comment: Urine , Random Performed By: #### L [id number], L400.0001, L501.6710, L500.2500, L100.0100 #### [facility] [address] [place], [address] BACTERIA 0 SEEN Normal None Seen [facility] Comment on above: Order Comment: Urine , Random Performed By: #### L [id number], L400.0001, L501.6710, L500.2500, L100.0100 #### [facility] [address] [place], [address] EPI,SQUAMOUS 0 SEEN Normal 5-10 [facility] Comment on above: Order Comment: Urine , Random Performed By: #### L [id number], L400.0001, L501.6710, L500.2500, L100.0100 #### [facility] [address] [place], [address] Mucus Ql (Urine sed) 0 SEEN Normal [facility] Comment on above: Order Comment: Urine , Random Performed By: #### L [id number], L400.0001, L501.6710, L500.2500, L100.0100 #### [facility] [address] [place], [address] RBC 0 SEEN Normal 0-5 [facility] Comment on above: Order Comment: Urine , Random Performed By: #### L [id number], L400.0001, L501.6710, L500.2500, L100.0100 #### [facility] [place] [address] [place], [address] Urine blood detectionOrdered By: Morgan Lanier on 04-29-2024 Urine Occult Blood Negative Negative [facility] Urine clarityOrdered By: Morgan Lanier on 04-29-2024 Clarity (U) Clear Clear [facility] Urine color determinationOrd ered By: Morgan Lanier on 04-29-2024 Color (U) Yellow Yellow [facility] Urine glucose detectionOrder ed By: Morgan Lanier on 04-29-2024 Glucose Ql (U) Normal mg/dl Normal [facility] Urine leukocyte esterase det ection by dipstickOrdered By: Morgan Lanier on 04-29-2024 Leukocyte esterase Test strip Ql (U) 25 /ul High Negative [facility] Urine pHOrdered By: Morgan willingham on 04-29-2024 pH (U) 8.0 [pH] 5.0 - 8.0 [facility] Urine sediment bacteria coun t by microscopy (number/high power field)Ordered By: Morgan Lanier on 04-29-2024 Bacteria LM.HPF (Urine sed) [#/Area] 0 /[HPF] None Seen [facility] Urine specific gravity measu rementOrdered By: Morgan Lanier on 04-29-2024 Specific gravity (U) [Rel density] 1.010 1.002-1.[address] [facility] Urine urobilinogen measureme ntOrdered By: Morgan Lanier on 04-29-2024 Urobilinogen Ql (U) Normal mg/dl Normal [facility] Urobilinogen Ql (U)Ordered B y: Morgan Lanier on 04-29-2024 Urine Urobilinogen Normal mg/dl Normal [facility] White blood cell (WBC) count Ordered By: Morgan Lanier on 04-29-2024 WBC (Bld) [#/Vol] 3.8 10*3/uL Low 4.4-11.0 [facility] White blood cell countOrdere d By: Morgan Lanier on 04-29-2024 Urine WBC 0-5 SEEN /hpf 0-5 [facility] White blood cell count 0-5 SEEN /hpf 0-5 [facility] Neurology Visit Reporton Neurology Visit Report [facility] [address], [address] [place] [address] OFFICE VISIT Date of Service: 04/22/24 MR#: [id number] Acct: [id number] Name: CHASITY ARIAS Rep #: [id number] : 1965 Provider: Dr. Michael rivera MD Age/Sex: 58/F Location: [facility] Status: Signed HPI HPI Chief Complaint: Details: Interim History: Chasity returns for follow-up visit. She has a history of asthma, Annette's thyroiditis, hypothyroidism and systemic lupus erythematosus. She began to have headaches in 2019. Her initial headache was a right frontal headache that was preceded by a 10-minute episode of right eye scotoma that she described as a graying of her visual field. She had associated nausea. Over the following 2 years, she had about 3 more similar headaches. Emergency room records from 04/24/2021 indicate that on 04/21/2021, she developed a headache and right eye visual scotoma. Her visual impairment improved but did not resolve completely. She had associated nausea. Her frontal headaches that began on 04/21/2021 have subsequently been continuous until 2022. Her visual impairment on 04/21/2021 began while performing yoga and arising from an inverted to an upright position. Her right eye visual impairment resolved over a period of 4 days. Her subsequent continuous headaches have been localized to the bifrontal head region. She has had associated photophobia, phonophobia and nausea. Her headaches fluctuate in severity. Severe headaches had occurred about 2 days/week. Since March 2021, she has continued to experience intermittent right eye rudolph scotomas. Acetaminophen was not of significant benefit. Wdzq-ycb-bubfntd ibuprofen was of slight benefit. Topiramate, initiated for headache prophylaxis in 2021 was of some benefit however caused tingling and cognitive side effects and was discontinued. Divalproex DR, initiated in 2022, has been of some benefit for headache prophylaxis. Earlier in 2023 she had an increase in her headache frequency and her headaches were occurring daily. She then discontinued celecoxib and caffeine use and has had improvement of her headaches. She now has about 2 days of headache per week and these are generally mild to moderate. Severe headaches occur about 1 day/month. She continues to experience intermittent scotomas and also experiences transient facial numbness with some of her headaches. Exposure to cold ambient temperature is a trigger for her headaches. She denied having any headaches prior to 1999. Sumatriptan was not of benefit for her headaches. Rizatriptan has been of some benefit for her headaches however she experiences sedation as a side effect. Ubrelvy has been of benefit for her headaches however she has experienced nausea and sedation as a side effect. Nurtec ODT is of benefit for her headaches though she uses this medication infrequently due to a side effect of sedation. Maio-mfe-xcxcmob magnesium supplementation was of benefit for headache prophylaxis however she no longer takes this medication due to concern about interference with other medication she is taking. She takes CellCept and hydroxychloroquine for systemic lupus erythematosus as prescribed by her shower attendant. She has had intermittent left-sided pulsatile tinnitus. 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 She had a fall in 2020 while performing [employer] and struck her head and was momentarily dazed. She has had some neck pain and low back pain. She is not experiencing radicular pain in the lower extremities. She has had numbness and weakness in the hands and had bilateral carpal tunnel surgery in 1999 and this was of benefit. 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 She has depression and anxiety. She has insomnia; she has trouble falling asleep and staying asleep during the night. Folic acid supplementation has been of benefit for hair loss. Physical Exam: Neuro: The patient is awake and alert and responds appropriately; speech is fluent Heart: Regular rate and rhythm Neck: No bruits Supplemental Info ASHLEY (05/31/2019): Negative ESR (12/24/2019): Normal. EKG (12/24/2019): Normal sinus rhythm; nonspecific T wave abnormality. Abnormal EKG. Magnesium, TSH (04/24/2021): TSH 0.03 (low) Head and neck CTA (04/24/2021): FINDINGS: Normal bilateral petrous carotid arteries.??? Normal right cavernous carotid artery with a normal supraclinoid bifurcation.??? Normal left cavernous carotid artery with a normal supraclinoid bifurcation. Normal right A1 segments of the anterior cerebral artery.??? Normal left A1 segments of the anterior cerebral artery.??? Normal intact anterior communicating artery (ACOM).??? Normal bilateral A2 segments of the anterior cerebral arteries. Vera (more content not included)... Normal [facility] Absolute neutrophil countOrd ered By: Morgan Lanier on 04-02-2024 Neutrophils (Bld) [#/Vol] 2.9 10*3/uL 2.0-7.7 [facility] Albumin to globulin ratioOrd ered By: Morgan Lanier on 04-02-2024 Albumin/Globulin [Mass ratio] 0.9 {ratio} 0.9-2.4 [facility] Basophil percentageOrdered B y: Morgan Lanier on 04-02-2024 Basophils/100 WBC (Bld) 0.9 % 0-1 [facility] Bilirubin, totalOrdered By: Morgan Lanier on 04-02-2024 Bilirubin [Mass/Vol] 0.60 mg/dL 0.20-1.00 [facility] Comment on above: For patients on eltr ombopag therapy, use of Dimension Polson TBIL is not recommended. Blood urea nitrogen (BUN)/cr eatinine ratioOrdered By: Morgan Lanier on 04-02-2024 Urea nitrogen/Creatinine [Mass ratio] 11.2 mg/mg 10-20 [facility] C-reactive protein measureme nt by high sensitivity methodOrdered By: Morgan Lanier on 04-02-2024 C-Reactive Protein Extended Range 70.60 mg/L High 0.0-3.0 [facility] Comment on above: C-Reactive Protein ( CRP) provides useful information for thediagnosis, therapy and monitoring of inflammatory processesand associated diseases. For the evaluation of Relative Riskfor Cardiovascular Disease, a High Sensitivity CRP (HSCRP)should be ordered. CBC W/Diff, Automatedon Absolute Lymph 1.16 X10 3/uL Normal 0.83-4.51 [facility] Comment on above: Performed By: #### L 501.9985, L400.0001, L501.6710, L500.2500, L100.0100 #### [facility] [address] [place], [address] Absolute Neut 2.9 X10 3/uL Normal 2.0-7.7 [facility] Comment on above: Performed By: #### L [id number], L400.0001, L501.6710, L500.2500, L100.0100 #### [facility] [address] [place], [address] Basophils/100 WBC (Bld) 0.9 % Normal 0-1 [facility] Comment on above: Performed By: #### L 501.9985, L400.0001, L501.6710, L500.2500, L100.0100 #### [facility] [address] [place], [address] Eosinophils/100 WBC (Bld) 1.3 % Normal 0-5 [facility] Comment on above: Performed By: #### L [id number], L400.0001, L501.6710, L500.2500, L100.0100 #### [facility] [address] [place], [address] Erythrocyte distribution width (RBC) [Ratio] 13.1 % Normal 11.6-14.6 [facility] Comment on above: Performed By: #### L 501.9985, L400.0001, L501.6710, L500.2500, L100.0100 #### [facility] [address] [place], [address] Hematocrit (Bld) [Volume fraction] 35.4 % Low 37-47 [facility] Comment on above: Performed By: #### L 501.9985, L400.0001, L501.6710, L500.2500, L100.0100 #### [facility] [address] [place], [address] Hemoglobin (Bld) [Mass/Vol] 11.8 g/dL Low 12.0-15.0 [facility] Comment on above: Performed By: #### L 501.9985, L400.0001, L501.6710, L500.2500, L100.0100 #### [facility] [address] [place], [address] IG% 1.300 High 0.0-0.9 [facility] Comment on above: Result Comment: IG% - Immature Granulocytes (promyelocytes, myelocytes and metamyelocytes) > 1% indicates that a LEFT SHIFT is Present. Performed By: #### L 501.9985, L400.0001, L501.6710, L500.2500, L100.0100 #### [facility] [address] [place], [address] Lymphocytes/100 WBC (Bld) 24.8 % Normal 19-41 [facility] Comment on above: Performed By: #### L 501.9985, L400.0001, L501.6710, L500.2500, L100.0100 #### [facility] [address] [place], [address] MCH (RBC) [Entitic mass] 29.3 pg Normal 27.0-32.0 [facility] Comment on above: Performed By: #### L 501.9985, L400.0001, L501.6710, L500.2500, L100.0100 #### [facility] [address] [place], [address] MCHC (RBC) [Mass/Vol] 33.3 g/dL Normal 32-[address] [facility] Comment on above: Performed By: #### L 501.9985, L400.0001, L501.6710, L500.2500, L100.0100 #### [facility] [address] [place], [address] MCV (RBC) [Entitic vol] 87.8 fL Normal 81-99 [facility] Comment on above: Performed By: #### L 501.9985, L400.0001, L501.6710, L500.2500, L100.0100 #### [facility] [address] [place], [address] Monocytes/100 WBC (Bld) 10.9 % High 0-10 [facility] Comment on above: Performed By: #### L 501.9985, L400.0001, L501.6710, L500.2500, L100.0100 #### [facility] [address] [place], [address] Neutrophils/100 WBC (Bld) 60.8 % Normal 47-70 [facility] Comment on above: Performed By: #### L 501.9985, L400.0001, L501.6710, L500.2500, L100.0100 #### [facility] [address] [place], [address] Nucleated RBC (Bld) [#/Vol] 0 10*3/uL Normal 0-5 [facility] Comment on above: Performed By: #### L 501.9985, L400.0001, L501.6710, L500.2500, L100.0100 #### [facility] [address] [place], [address] Platelet mean volume (Bld) [Entitic vol] 11.6 fL Normal 6.2-12.0 [facility] Comment on above: Performed By: #### L 501.9985, L400.0001, L501.6710, L500.2500, L100.0100 #### [facility] [address] [place], [address] Platelets (Bld) [#/Vol] 250 10*3/uL Normal 150-450 [facility] Comment on above: Performed By: #### L 501.9985, L400.0001, L501.6710, L500.2500, L100.0100 #### [facility] [address] [place], [address] RBC (Bld) [#/Vol] 4.03 10*6/uL Low 4.2-5.4 [facility] Comment on above: Performed By: #### L 501.9985, L400.0001, L501.6710, L500.2500, L100.0100 #### [facility] [address] [place], [address] RDW SD 42.2 fl Normal 35.1-43.9 [facility] Comment on above: Performed By: #### L 501.9985, L400.0001, L501.6710, L500.2500, L100.0100 #### [facility] [address] [place], [address] WBC (Bld) [#/Vol] 4.7 10*3/uL Normal 4.4-11.0 [facility] Comment on above: Performed By: #### L 501.9985, L400.0001, L501.6710, L500.2500, L100.0100 #### [facility] [address] [place], [address] CRPon 04-02-2024 C-REACTIVE PROT 70.60 mg/L High 0.0-3.0 [facility] Comment on above: Result Comment: C-Re active Protein (CRP) provides useful information for the diagnosis, therapy and monitoring of inflammatory processes and associated diseases. For the evaluation of Relative Risk for Cardiovascular Disease, a High Sensitivity CRP (HSCRP) should be ordered. Performed By: #### L 501.9985, L400.0001, L501.6710, L500.2500, L100.0100 #### [facility] [address] [place], [address] Carbon dioxide measurementOr dered By: Morgan Lanier on 04-02-2024 CO2 [Moles/Vol] 24.0 mmol/L 21.0-32.0 [facility] Chloride measurementOrdered By: Morgan Lanier on 04-02-2024 Chloride [Moles/Vol] 101 mmol/L 98-107 [facility] Comprehensive Metabolic Prof ilon 04-02-2024 Albumin [Mass/Vol] 3.7 g/dL Normal 3.2-5.0 [facility] Comment on above: Performed By: #### L 501.9985, L400.0001, L501.6710, L500.2500, L100.0100 #### [facility] [address] [place], [address] Albumin/Globulin [Mass ratio] 0.9 {ratio} Normal 0.9-2.4 [facility] Comment on above: Performed By: #### L 501.9985, L400.0001, L501.6710, L500.2500, L100.0100 #### [facility] [address] [place], [address] ALK P 60 U/L Normal 45-117 [facility] Comment on above: Performed By: #### L 501.9985, L400.0001, L501.6710, L500.2500, L100.0100 #### [facility] [address] [place], [address] ALT [Catalytic activity/Vol] 21 U/L Normal 13-56 [facility] Comment on above: Performed By: #### L 501.9985, L400.0001, L501.6710, L500.2500, L100.0100 #### [facility] [address] [place], [address] AST [Catalytic activity/Vol] 25 U/L Normal 15-37 [facility] Comment on above: Performed By: #### L 501.9985, L400.0001, L501.6710, L500.2500, L100.0100 #### [facility] [address] [place], [address] Bilirubin [Mass/Vol] 0.60 mg/dL Normal 0.20-1.00 [facility] Comment on above: Result Comment: For patients on eltrombopag therapy, use of Dimension Polson TBIL is not recommended. Performed By: #### L 501.9985, L400.0001, L501.6710, L500.2500, L100.0100 #### [facility] [address] [place], [address] BUN/CRE 11.2 RATIO Normal 10-20 [facility] Comment on above: Performed By: #### L 501.9985, L400.0001, L501.6710, L500.2500, L100.0100 #### [facility] [address] [place], [address] CA,Total 9.1 mg/dL Normal 8.5-10.1 [facility] Comment on above: Performed By: #### L 501.9985, L400.0001, L501.6710, L500.2500, L100.0100 #### [facility] [address] [place], [address] Chloride [Moles/Vol] 101 mmol/L Normal 98-107 [facility] Comment on above: Performed By: #### L 501.9985, L400.0001, L501.6710, L500.2500, L100.0100 #### [facility] [address] [place], [address] CO2 [Moles/Vol] 24.0 mmol/L Normal 21.0-32.0 [facility] Comment on above: Performed By: #### L 501.9985, L400.0001, L501.6710, L500.2500, L100.0100 #### [facility] [address] [place], [address] Creatinine [Mass/Vol] 0.62 mg/dL Normal 0.55-1.[address] [facility] Comment on above: Result Comment: The validity of the calculated GFR GFRAA in patients over 70 years has not been determined. Clinical correlation is essential. Performed By: #### L 501.9985, L400.0001, L501.6710, L500.2500, L100.0100 #### [facility] [address] [place], [address] EST GFR - AA 126 mL/min Normal >60 [facility] Comment on above: Result Comment: Afri can Cymraes GFR Calc Performed By: #### L [id number], L400.0001, L501.6710, L500.2500, L100.0100 #### [facility] [address] [place], [address] GAP 8 Normal 5-15 [facility] Comment on above: Performed By: #### L [id number], L400.0001, L501.6710, L500.2500, L100.0100 #### [facility] [address] [place], [address] GFR/1.73 sq M.predicted among non-blacks MDRD (S/P/Bld) [Vol rate/Area] 104 mL/min/{1.73_m2} Normal >60 [facility] Comment on above: Result Comment: Non- GFR Calc Performed By: #### L [id number], L400.0001, L501.6710, L500.2500, L100.0100 #### [facility] [address] [place], [address] Globulin (S) [Mass/Vol] 4.0 g/dL Normal 2.2-4.2 [facility] Comment on above: Performed By: #### L [id number], L400.0001, L501.6710, L500.2500, L100.0100 #### [facility] [address] [place], [address] Glucose [Mass/Vol] 111 mg/dL High 74-106 [facility] Comment on above: Result Comment: Fast ing Glucose result from 100 to 125 mg/dL suggests IMPAIRED HOMEOSTASIS per A.D.A. criteria. Performed By: #### L [id number], L400.0001, L501.6710, L500.2500, L100.0100 #### [facility] [address] [place], [address] Potassium [Moles/Vol] 3.2 mmol/L Low 3.5-5.[address] [facility] Comment on above: Performed By: #### L [id number], L400.0001, L501.6710, L500.2500, L100.0100 #### [facility] [address] [place], [address] Sodium [Moles/Vol] 133 mmol/L Low 136-145 [facility] Comment on above: Performed By: #### L [id number], L400.0001, L501.6710, L500.2500, L100.0100 #### [facility] [address] [place], [address] T PROT 7.7 g/dL Normal 6.4-8.2 [facility] Comment on above: Performed By: #### L [id number], L400.0001, L501.6710, L500.2500, L100.0100 #### [facility] [address] [place], [address] Urea nitrogen [Mass/Vol] 7 mg/dL Normal 7-18 [facility] Comment on above: Performed By: #### L [id number], L400.0001, L501.6710, L500.2500, L100.0100 #### [facility] [address] [place], [address] Eosinophil percentageOrdered By: Morgan Lanier on 04-02-2024 Eosinophils/100 WBC (Bld) 1.3 % 0-5 [facility] Erythrocyte distribution wid th ratioOrdered By: Morgan Lanier on 04-02-2024 Erythrocyte distribution width (RBC) [Ratio] 13.1 % 11.6-14.6 [facility] Erythrocyte distribution wid th standard deviationOrdered By: Morgan Lanier on 04-02-2024 Erythrocyte distribution width (RBC) [Entitic vol] 42.2 fL 35.1-43.9 [facility] Estimated glomerular filtrat ion rate (GFR) AmericanOrdered By: Morgan Lanier on 04-02-2024 Estimated GFR (MDRD) Amer 126 mL/min >60 [facility] Comment on above: GFR Calc Glomerular filtration rate ( GFR) estimationOrdered By: Morgan Lanier on 04-02-2024 Estimated GFR (MDRD) Non-Af Amer 104 mL/min >60 [facility] Comment on above: Non- GFR Calc Glucose measurementOrdered B y: Morgan Lanier on 04-02-2024 Glucose [Mass/Vol] 111 mg/dL High 74-106 [facility] Comment on above: Fasting Glucose resu lt from 100 to 125 mg/dL suggests IMPAIRED HOMEOSTASIS per A.D.A. criteria. Hematocrit Auto (Bld) [Volum e fraction]Ordered By: Morgan Lanier on 04-02-2024 Hematocrit (Bld) [Volume fraction] 35.4 % Low 37-47 [facility] Hemoglobin measurementOrdere d By: Morgan Lanier on 04-02-2024 Hemoglobin (Bld) [Mass/Vol] 11.8 g/dL Low 12.0-15.0 [facility] Immature granulocytes/100 WB C Auto (Bld)Ordered By: Morgan Lanier on 04-02-2024 Immature granulocytes/100 WBC (Bld) 1.300 % High 0.0-0.9 [facility] Comment on above: IG% - Immature Granu locytes (promyelocytes, myelocytes and metamyelocytes) > 1% indicates that a LEFT SHIFT is Present. Laboratory - Chemistry and C hemistry - challengeOrdered By: Morgan Lanier on 04-02-2024 AST [Catalytic activity/Vol] 25 U/L 15-37 [facility] Lymphocytes Auto (Unsp spec) [#/Vol]Ordered By: Morgan Lanier on 04-02-2024 Lymphocytes (Bld) [#/Vol] 1.16 10*3/uL 0.83-4.51 [facility] Lymphocytes/100 WBC Auto (Un sp spec)Ordered By: Morgan Lanier on 04-02-2024 Lymphocytes/100 WBC (Bld) 24.8 % 19-41 [facility] MCV (mean corpuscular volume ) determinationOrdered By: Morgan Lanier on 04-02-2024 MCV (RBC) [Entitic vol] 87.8 fL 81-99 [facility] Mean corpuscular hemoglobin (MCH) determinationOrdered By: Morgan Lanier on 04-02-2024 MCH (RBC) [Entitic mass] 29.3 pg 27.0-32.0 [facility] Mean corpuscular hemoglobin concentration (MCHC) determinationOrdered By: Morgan Lanier on 04-02-2024 MCHC (RBC) [Mass/Vol] 33.3 g/dL 32-[address] [facility] Mean platelet volume determi nationOrdered By: Morgan Lanier on 04-02-2024 Platelet mean volume (Bld) [Entitic vol] 11.6 fL 6.2-12.0 [facility] Monocyte percentageOrdered B y: Morgan Lanier on 04-02-2024 Monocytes/100 WBC (Bld) 10.9 % High 0-10 [facility] Neutrophil percentageOrdered By: Morgan Lanier on 04-02-2024 Neutrophils/100 WBC (Bld) 60.8 % 47-70 [facility] Nucleated red blood cell per centageOrdered By: Morgan Lanier on 04-02-2024 Nucleated RBC/100 WBC (Bld) [Ratio] 0 % 0-5 [facility] Platelet countOrdered By: Akosua Lanier on 04-02-2024 Platelets (Bld) [#/Vol] 250 10*3/uL 150-450 [facility] Potassium measurementOrdered By: Morgan Lanier on 04-02-2024 Potassium [Moles/Vol] 3.2 mmol/L Low 3.5-5.[address] [facility] RBC Auto (Bld) [#/Vol]Ordere d By: Morgan Lanier on 04-02-2024 RBC (Bld) [#/Vol] 4.03 10*6/uL Low 4.2-5.4 [facility] Serum anion gap measurementO rdered By: Morgan Lanier on 04-02-2024 Anion gap [Moles/Vol] 8 mmol/L 5-[address] [facility] Serum globulin measurementOr dered By: Morgan Lanier on 04-02-2024 Globulin (S) [Mass/Vol] 4.0 g/dL 2.2-4.2 [facility] Serum or plasma alanine kulkarni otransferase (ALT) measurementOrdered By: Morgan Lanier on 04-02-2024 ALT [Catalytic activity/Vol] 21 U/L 13-56 [facility] Serum or plasma albumin nicole urement (mass/volume)Ordered By: Morgan Lanier on 04-02-2024 Albumin [Mass/Vol] 3.7 g/dL 3.2-5.0 [facility] Serum or plasma alkaline bobby sphatase measurementOrdered By: Morgan Lanier on 04-02-2024 ALP [Catalytic activity/Vol] 60 U/L 45-117 [facility] Serum or plasma calcium nicole urement (mass/volume)Ordered By: Morgan Lanier on 04-02-2024 Calcium [Mass/Vol] 9.1 mg/dL 8.5-10.1 [facility] Serum or plasma creatinine m easurement (mass/volume)Ordered By: Morgan Lanier on 04-02-2024 Creatinine [Mass/Vol] 0.62 mg/dL 0.55-1.[address] [facility] Comment on above: The validity of the calculated GFR & GFRAA in patients over 70 years has not been determined. Clinical correlation is essential. Serum or plasma urea nitroge n measurement (mass/volume)Ordered By: Morgan Lanier on 04-02-2024 Urea nitrogen [Mass/Vol] 7 mg/dL 7-18 [facility] Sodium levelOrdered By: Morgan Lanier on 04-02-2024 Sodium [Moles/Vol] 133 mmol/L Low 136-145 [facility] Total proteinOrdered By: Morgan Lanier on 04-02-2024 Protein [Mass/Vol] 7.7 g/dL 6.4-8.2 [facility] White blood cell (WBC) count Ordered By: Morgan Lanier on 04-02-2024 WBC (Bld) [#/Vol] 4.7 10*3/uL 4.4-11.0 [facility] CBC W/Diff, Automatedon 11-0 Absolute Lymph 1.20 X10 3/uL Normal 0.83-4.51 [facility] Comment on above: Order Comment: TSH F OR OLEGHECBCD, CMP, CRP FOR YANNICK Performed By: #### L [id number], L400.0001, L501.6710, L500.2500, L100.0100 #### [facility] [address] [place], [address] Absolute Neut 1.6 X10 3/uL Low 2.0-7.7 [facility] Comment on above: Order Comment: TSH F OR OLEGHECBCD, CMP, CRP FOR YANNICK Performed By: #### L [id number], L400.0001, L501.6710, L500.2500, L100.0100 #### [facility] [address] [place], [address] Basophils/100 WBC (Bld) 2.1 % High 0-1 [facility] Comment on above: Order Comment: TSH F OR OLEGHECBCD, CMP, CRP FOR YANNICK Performed By: #### L [id number], L400.0001, L501.6710, L500.2500, L100.0100 #### [facility] [address] [place], [address] Eosinophils/100 WBC (Bld) 5.8 % High 0-5 [facility] Comment on above: Order Comment: TSH F OR OLEGHECBCD, CMP, CRP FOR YANNICK Performed By: #### L [id number], L400.0001, L501.6710, L500.2500, L100.0100 #### [facility] [address] [place], [address] Erythrocyte distribution width (RBC) [Ratio] 14.4 % Normal 11.6-14.6 [facility] Comment on above: Order Comment: TSH F OR OLEGHECBCD, CMP, CRP FOR YANNICK Performed By: #### L [id number], L400.0001, L501.6710, L500.2500, L100.0100 #### [facility] [address] [place], [address] Hematocrit (Bld) [Volume fraction] 36.9 % Low 37-47 [facility] Comment on above: Order Comment: TSH F OR OLEGHECBCD, CMP, CRP FOR YANNICK Performed By: #### L [id number], L400.0001, L501.6710, L500.2500, L100.0100 #### [facility] [address] [place], [address] Hemoglobin (Bld) [Mass/Vol] 11.8 g/dL Low 12.0-15.0 [facility] Comment on above: Order Comment: TSH F OR OLEGHECBCD, CMP, CRP FOR YANNICK Performed By: #### L [id number], L400.0001, L501.6710, L500.2500, L100.0100 #### [facility] [address] [place], [address] IG% 0.300 Normal 0.0-0.9 [facility] Comment on above: Order Comment: TSH F OR OLEGHECBCD, CMP, CRP FOR YANNICK Result Comment: IG% - Immature Granulocytes (promyelocytes, myelocytes and metamyelocytes) > 1% indicates that a LEFT SHIFT is Present. Performed By: #### L [id number], L400.0001, L501.6710, L500.2500, L100.0100 #### [facility] [address] [place], [address] Lymphocytes/100 WBC (Bld) 36.5 % Normal 19-41 [facility] Comment on above: Order Comment: TSH F OR OLEGHECBCD, CMP, CRP FOR YANNICK Performed By: #### L [id number], L400.0001, L501.6710, L500.2500, L100.0100 #### [facility] [address] [place], [address] MCH (RBC) [Entitic mass] 30.0 pg Normal 27.0-32.0 [facility] Comment on above: Order Comment: TSH F OR OLEGHECBCD, CMP, CRP FOR YANNICK Performed By: #### L [id number], L400.0001, L501.6710, L500.2500, L100.0100 #### [facility] [address] [place], [address] MCHC (RBC) [Mass/Vol] 32.0 g/dL Normal 32-[address] [facility] Comment on above: Order Comment: TSH F OR OLEGHECBCD, CMP, CRP FOR YANNICK Performed By: #### L [id number], L400.0001, L501.6710, L500.2500, L100.0100 #### [facility] [address] [place], [address] MCV (RBC) [Entitic vol] 93.9 fL Normal 81-99 [facility] Comment on above: Order Comment: TSH F OR OLEGHECBCD, CMP, CRP FOR YANNICK Performed By: #### L [id number], L400.0001, L501.6710, L500.2500, L100.0100 #### [facility] [address] [place], [address] Monocytes/100 WBC (Bld) 7.6 % Normal 0-10 [facility] Comment on above: Order Comment: TSH F OR OLEGHECBCD, CMP, CRP FOR YANNICK Performed By: #### L [id number], L400.0001, L501.6710, L500.2500, L100.0100 #### [facility] [address] [place], [address] Neutrophils/100 WBC (Bld) 47.7 % Normal 47-70 [facility] Comment on above: Order Comment: TSH F OR OLEGHECBCD, CMP, CRP FOR YANNICK Performed By: #### L [id number], L400.0001, L501.6710, L500.2500, L100.0100 #### [facility] [address] [place], [address] Nucleated RBC (Bld) [#/Vol] 0 10*3/uL Normal 0-5 [facility] Comment on above: Order Comment: TSH F OR OLEGHECBCD, CMP, CRP FOR YANNICK Performed By: #### L [id number], L400.0001, L501.6710, L500.2500, L100.0100 #### [facility] [address] [place], [address] Platelet mean volume (Bld) [Entitic vol] 11.5 fL Normal 6.2-12.0 [facility] Comment on above: Order Comment: TSH F OR OLEGHECBCD, CMP, CRP FOR YANNICK Performed By: #### L [id number], L400.0001, L501.6710, L500.2500, L100.0100 #### [facility] [address] [place], [address] Platelets (Bld) [#/Vol] 262 10*3/uL Normal 150-450 [facility] Comment on above: Order Comment: TSH F OR OLEGHECBCD, CMP, CRP FOR YANNICK Performed By: #### L [id number], L400.0001, L501.6710, L500.2500, L100.0100 #### [facility] [address] [place], [address] RBC (Bld) [#/Vol] 3.93 10*6/uL Low 4.2-5.4 [facility] Comment on above: Order Comment: TSH F OR OLEGHECBCD, CMP, CRP FOR YANNICK Performed By: #### L [id number], L400.0001, L501.6710, L500.2500, L100.0100 #### [facility] [address] [place], [address] RDW SD 49.6 fl High 35.1-43.9 [facility] Comment on above: Order Comment: TSH F OR OLEGHECBCD, CMP, CRP FOR YANNICK Performed By: #### L [id number], L400.0001, L501.6710, L500.2500, L100.0100 #### [facility] [address] [place], [address] WBC (Bld) [#/Vol] 3.3 10*3/uL Low 4.4-11.0 [facility] Comment on above: Order Comment: TSH F OR OLEGHECBCD, CMP, CRP FOR YANNICK Performed By: #### L [id number], L400.0001, L501.6710, L500.2500, L100.0100 #### [facility] [address] [place], [address] CRPon 02-03-2024 C-REACTIVE PROT < 2.90 Normal 0.0-3.0 [facility] Comment on above: Result Comment: C-Re active Protein (CRP) provides useful information for the diagnosis, therapy and monitoring of inflammatory processes and associated diseases. For the evaluation of Relative Risk for Cardiovascular Disease, a High Sensitivity CRP (HSCRP) should be ordered. Performed By: #### L [id number], L400.0001, L501.6710, L500.2500, L100.0100 #### [facility] [address] [place], [address] Comprehensive Metabolic Prof ilon 02-03-2024 Albumin [Mass/Vol] 3.9 g/dL Normal 3.2-5.0 [facility] Comment on above: Performed By: #### L [id number], L400.0001, L501.6710, L500.2500, L100.0100 #### [facility] [address] [place], [address] Albumin/Globulin [Mass ratio] 1.0 {ratio} Normal 0.9-2.4 [facility] Comment on above: Performed By: #### L [id number], L400.0001, L501.6710, L500.2500, L100.0100 #### [facility] [address] [place], [address] ALK P 71 U/L Normal 45-117 [facility] Comment on above: Performed By: #### L [id number], L400.0001, L501.6710, L500.2500, L100.0100 #### [facility] [address] [place], [address] ALT [Catalytic activity/Vol] 18 U/L Normal 13-56 [facility] Comment on above: Performed By: #### L [id number], L400.0001, L501.6710, L500.2500, L100.0100 #### [facility] [address] [place], [address] AST [Catalytic activity/Vol] 15 U/L Normal 15-37 [facility] Comment on above: Performed By: #### L [id number], L400.0001, L501.6710, L500.2500, L100.0100 #### [facility] [address] [place], [address] Bilirubin [Mass/Vol] 0.80 mg/dL Normal 0.20-1.00 [facility] Comment on above: Result Comment: For patients on eltrombopag therapy, use of Dimension Polson TBIL is not recommended. Performed By: #### L [id number], L400.0001, L501.6710, L500.2500, L100.0100 #### [facility] [address] [place], [address] BUN/CRE 9.9 RATIO Low 10-20 [facility] Comment on above: Performed By: #### L [id number], L400.0001, L501.6710, L500.2500, L100.0100 #### [facility] [address] [place], [address] CA,Total 9.2 mg/dL Normal 8.5-10.1 [facility] Comment on above: Performed By: #### L [id number], L400.0001, L501.6710, L500.2500, L100.0100 #### [facility] [address] [place], [address] Chloride [Moles/Vol] 104 mmol/L Normal 98-107 [facility] Comment on above: Performed By: #### L [id number], L400.0001, L501.6710, L500.2500, L100.0100 #### [facility] [address] [place], [address] CO2 [Moles/Vol] 27.0 mmol/L Normal 21.0-32.0 [facility] Comment on above: Performed By: #### L [id number], L400.0001, L501.6710, L500.2500, L100.0100 #### [facility] [address] [place], [address] Creatinine [Mass/Vol] 0.60 mg/dL Normal 0.55-1.[address] [facility] Comment on above: Result Comment: The validity of the calculated GFR GFRAA in patients over 70 years has not been determined. Clinical correlation is essential. Performed By: #### L [id number], L400.0001, L501.6710, L500.2500, L100.0100 #### [facility] [address] [place], [address] EST GFR - AA 131 mL/min Normal >60 [facility] Comment on above: Result Comment: Afri can Cymraes GFR Calc Performed By: #### L [id number], L400.0001, L501.6710, L500.2500, L100.0100 #### [facility] [address] [place], [address] GAP 7 Normal 5-15 [facility] Comment on above: Performed By: #### L [id number], L400.0001, L501.6710, L500.2500, L100.0100 #### [facility] [address] [place], [address] GFR/1.73 sq M.predicted among non-blacks MDRD (S/P/Bld) [Vol rate/Area] 109 mL/min/{1.73_m2} Normal >60 [facility] Comment on above: Result Comment: Non- GFR Calc Performed By: #### L [id number], L400.0001, L501.6710, L500.2500, L100.0100 #### [facility] [address] [place], [address] Globulin (S) [Mass/Vol] 3.9 g/dL Normal 2.2-4.2 [facility] Comment on above: Performed By: #### L [id number], L400.0001, L501.6710, L500.2500, L100.0100 #### [facility] [address] [place], [address] Glucose [Mass/Vol] 87 mg/dL Normal 74-106 [facility] Comment on above: Performed By: #### L [id number], L400.0001, L501.6710, L500.2500, L100.0100 #### [facility] [address] [place], [address] Potassium [Moles/Vol] 4.0 mmol/L Normal 3.5-5.[address] [facility] Comment on above: Performed By: #### L [id number], L400.0001, L501.6710, L500.2500, L100.0100 #### [facility] [address] [place], [address] Sodium [Moles/Vol] 138 mmol/L Normal 136-145 [facility] Comment on above: Performed By: #### L [id number], L400.0001, L501.6710, L500.2500, L100.0100 #### [facility] [address] [place], [address] T PROT 7.8 g/dL Normal 6.4-8.2 [facility] Comment on above: Performed By: #### L [id number], L400.0001, L501.6710, L500.2500, L100.0100 #### [facility] [address] [place], [address] Urea nitrogen [Mass/Vol] 6 mg/dL Low 7-18 [facility] Comment on above: Performed By: #### L [id number], L400.0001, L501.6710, L500.2500, L100.0100 #### [facility] [address] [place], [address] Thyroid Stim Hormone (TSH)on 02-03-2024 TSH 0.748 uIU/mL Normal 0.358-3.[address] [facility] Comment on above: Performed By: #### L [id number], L400.0001, L501.6710, L500.2500, L100.0100 #### [facility] [address] [place], [address] Absolute lymphocyte countOrd ered By: Ruchi Wu on 07-28-2023 Lymphocytes Auto (Unsp spec) [#/Vol] 1.08 10*3/uL 0.83-4.51 [facility] Automated lymphocyte count a s percentage of total leukocytesOrdered By: Ruchi Wu on 07-28-2023 Lymphocytes/100 WBC Auto (Unsp spec) 37.9 % 19-41 [facility] Basophil percentageOrdered B y: Ruchi Wu on 07-28-2023 Basophils/100 WBC (Bld) 1.1 % 0-1 [facility] Eosinophils/100 WBC (Bld) 1.1 % 0-5 [facility] Hemoglobin (Bld) [Mass/Vol] 11.5 g/dL 12.0-15.0 [facility] Monocytes/100 WBC (Bld) 10.5 % 0-10 [facility] Neutrophils (Bld) [#/Vol] 1.4 10*3/uL 2.0-7.7 [facility] Neutrophils/100 WBC (Bld) 49.4 % 47-70 [facility] WBC (Bld) [#/Vol] 2.9 10*3/uL 4.4-11.0 [facility] Bilirubin [Mass/Vol] 0.80 mg/dL 0.20-1.00 [facility] Comment on above: For patients on eltr ombopag therapy, use of Dimension [place] TBIL is not recommended. Chloride [Moles/Vol] 98 mmol/L 98-107 [facility] Glucose [Mass/Vol] 87 mg/dL 74-106 [facility] Potassium [Moles/Vol] 4.0 mmol/L 3.5-5.[address] [facility] Protein [Mass/Vol] 7.3 g/dL 6.4-8.2 [facility] Sodium [Moles/Vol] 130 mmol/L 136-145 [facility] Determination of erythrocyte mean corpuscular volume (MCV)Ordered By: Ruchi Wu on 07-28-2023 MCV (RBC) [Entitic vol] 91.9 fL 81-99 [facility] Erythrocyte distribution wid th ratioOrdered By: Ruchi Wu on 07-28-2023 Erythrocyte distribution width (RBC) [Ratio] 12.7 % 11.6-14.6 [facility] Erythrocyte distribution wid th standard deviationOrdered By: Ruchi Wu on 07-28-2023 Erythrocyte distribution width (RBC) [Entitic vol] 42.9 fL 35.1-43.9 [facility] Hematocrit Auto (Bld) [Volum e fraction]Ordered By: Ruchi Wu on 07-28-2023 Hematocrit (Bld) [Volume fraction] 33.1 % 37-47 [facility] Immature granulocytes/100 WB C Auto (Bld)Ordered By: Ruchi Wu on 07-28-2023 Immature granulocytes/100 WBC (Bld) 0.000 % 0.0-0.9 [facility] Comment on above: IG% - Immature Granu locytes (promyelocytes, myelocytes and metamyelocytes) > 1% indicates that a LEFT SHIFT is Present. Laboratory - Chemistry and C hemistry - challengeOrdered By: Ruchi Wu on 07-28-2023 Albumin/Globulin [Mass ratio] 1.2 {ratio} 0.9-2.4 [facility] ALP [Catalytic activity/Vol] 43 U/L 45-117 [facility] ALT [Catalytic activity/Vol] 15 U/L 13-56 [facility] CO2 [Moles/Vol] 26.0 mmol/L 21.0-32.0 [facility] Globulin (S) [Mass/Vol] 3.3 g/dL 2.2-4.2 [facility] Urea nitrogen/Creatinine [Mass ratio] 7.4 mg/mg 10-20 [facility] - Hematology and Cell countsOrdered By: Ruchi Wu on 07-28-2023 MCH (RBC) [Entitic mass] 31.9 pg 27.0-32.0 [facility] MCHC (RBC) [Mass/Vol] 34.7 g/dL 32-[address] [facility] Nucleated RBC/100 WBC (Bld) [Ratio] 0 % 0-5 [facility] Platelet mean volume (Bld) [Entitic vol] 11.2 fL 6.2-12.0 [facility] Platelets (Bld) [#/Vol] 247 10*3/uL 150-450 [facility] No Panel InformationOrdered By: Ruchi Wu on 07-28-2023 C-Reactive Protein Extended Range < 2.90 mg/L 0.0-3.0 [facility] Comment on above: C-Reactive Protein ( CRP) provides useful information for thediagnosis, therapy and monitoring of inflammatory processesand associated diseases. For the evaluation of Relative Riskfor Cardiovascular Disease, a High Sensitivity CRP (HSCRP)should be ordered. Estimated GFR (MDRD) Amer 151 mL/min >60 [facility] Comment on above: GFR Calc Estimated GFR (MDRD) Non-Af Amer 125 mL/min >60 [facility] Comment on above: Non- GFR Calc RBC Auto (Bld) [#/Vol]Ordere d By: Ruchi Wu on 07-28-2023 RBC (Bld) [#/Vol] 3.60 10*6/uL 4.2-5.4 [facility] Serum or plasma calcium nicole urement (mass/volume)Ordered By: Ruchi Wu on 07-28-2023 Calcium [Mass/Vol] 9.2 mg/dL 8.5-10.1 [facility] Serum or plasma creatinine m easurement (mass/volume)Ordered By: Ruchi Wu on 07-28-2023 Creatinine [Mass/Vol] 0.54 mg/dL 0.55-1.[address] [facility] Comment on above: The validity of the calculated GFR & GFRAA in patients over 70 years has not been determined. Clinical correlation is essential. Serum or plasma thyroid stim ulating hormone (TSH) measurement (units/volume)Ordered By: Ruchi Wu on 07-28-2023 TSH Qn 0.55 uIU/mL 0.358-3.74 [facility] Serum or plasma urea nitroge n measurement (mass/volume)Ordered By: Ruchi Wu on 07-28-2023 Urea nitrogen [Mass/Vol] 4 mg/dL 7-18 [facility] [facility] Th[facility] prep Papanicolaou smear with manual screeningOrdered By: Ruchi Wu on 07-28-2023 Thin prep Papanicolaou smear with manual screening 4.0 g/dL 3.2-5.0 [facility] Thin prep Papanicolaou smear with manual screening 19 U/L 15-37 [facility] Thin prep Papanicolaou smear with manual screening 6 5-15 [facility] No Panel InformationOrdered By: Keaton Noel on 07-16-2023 SS-A/Ro IgG Antibody < 0.2 AI 0.0-0.9 [facility] SS-B/La IgG Antibody < 0.2 AI 0.0-0.9 [facility] Comment on above: Performed at: [address] [id number] Director: Espinoza Bhatia PhD, Phone: [phone] Laboratory - Chemistry and C hemistry - challengeOrdered By: Ruchi Wu on 06-17-2023 Cobalamin (Vitamin B12) [Mass/Vol] 845 pg/mL 211-931 [facility] No Panel InformationOrdered By: Ruchi Wu on 06-17-2023 Vitamin D 25-Hydroxy 57.2 ng/mL [facility] Comment on above: Vitamin D 25(OH) Sta tus Range Deficiency <20 ng/mL (50nmol/L) Insufficiency 20 - 30 ng/mL (50 - 75 nmol/L) Sufficiency 30 - 100 ng/mL (75 - 250 nmol/L) Toxicity >100 ng/mL (>250 nmol/L) Serum or plasma thyroid stim ulating hormone (TSH) measurement (units/volume)Ordered By: Ruchi Wu on 06-17-2023 TSH Qn 6.86 uIU/mL 0.358-3.74 [facility] Absolute lymphocyte countOrd ered By: Morgan Lanier on 06-02-2023 Lymphocytes Auto (Unsp spec) [#/Vol] 1.45 10*3/uL 0.83-4.51 [facility] Automated lymphocyte count a s percentage of total leukocytesOrdered By: Morgan Lanier on 06-02-2023 Lymphocytes/100 WBC Auto (Unsp spec) 24.7 % 19-41 [facility] Basophil percentageOrdered B y: Morgan Lanier on 06-02-2023 Basophils/100 WBC (Bld) 0.9 % 0-1 [facility] Bilirubin [Mass/Vol] 0.80 mg/dL 0.20-1.00 [facility] Comment on above: For patients on eltr ombopag therapy, use of Dimension [place] TBIL is not recommended. Chloride [Moles/Vol] 102 mmol/L 98-107 [facility] Eosinophils/100 WBC (Bld) 0.9 % 0-5 [facility] Glucose [Mass/Vol] 98 mg/dL 74-106 [facility] Hemoglobin (Bld) [Mass/Vol] 12.0 g/dL 12.0-15.0 [facility] Monocytes/100 WBC (Bld) 8.7 % 0-10 [facility] Neutrophils (Bld) [#/Vol] 3.8 10*3/uL 2.0-7.7 [facility] Neutrophils/100 WBC (Bld) 64.5 % 47-70 [facility] Potassium [Moles/Vol] 3.9 mmol/L 3.5-5.[address] [facility] Protein [Mass/Vol] 7.5 g/dL 6.4-8.2 [facility] Sodium [Moles/Vol] 135 mmol/L 136-145 [facility] WBC (Bld) [#/Vol] 5.9 10*3/uL 4.4-11.0 [facility] Determination of erythrocyte mean corpuscular volume (MCV)Ordered By: Morgan Lanier on 06-02-2023 MCV (RBC) [Entitic vol] 93.9 fL 81-99 [facility] Erythrocyte distribution wid th ratioOrdered By: Morgan Lanier on 06-02-2023 Erythrocyte distribution width (RBC) [Ratio] 13.2 % 11.6-14.6 [facility] Erythrocyte distribution wid th standard deviationOrdered By: Morgan Lanier on 06-02-2023 Erythrocyte distribution width (RBC) [Entitic vol] 45.3 fL 35.1-43.9 [facility] Hematocrit Auto (Bld) [Volum e fraction]Ordered By: Morgan Lanier on 06-02-2023 Hematocrit (Bld) [Volume fraction] 36.7 % 37-47 [facility] Immature granulocytes/100 WB C Auto (Bld)Ordered By: Morgan Lanier on 06-02-2023 Immature granulocytes/100 WBC (Bld) 0.300 % 0.0-0.9 [facility] Comment on above: IG% - Immature Granu locytes (promyelocytes, myelocytes and metamyelocytes) > 1% indicates that a LEFT SHIFT is Present. Laboratory - Chemistry and C hemistry - challengeOrdered By: Morgan Lanier on 06-02-2023 Albumin/Globulin [Mass ratio] 1.2 {ratio} 0.9-2.4 [facility] ALP [Catalytic activity/Vol] 39 U/L 45-117 [facility] ALT [Catalytic activity/Vol] 17 U/L 13-56 [facility] CO2 [Moles/Vol] 29.0 mmol/L 21.0-32.0 [facility] Globulin (S) [Mass/Vol] 3.4 g/dL 2.2-4.2 [facility] Urea nitrogen/Creatinine [Mass ratio] 12.4 mg/mg 10-20 [facility] Laboratory - Hematology and Cell countsOrdered By: Morgan Lanier on 06-02-2023 MCH (RBC) [Entitic mass] 30.7 pg 27.0-32.0 [facility] MCHC (RBC) [Mass/Vol] 32.7 g/dL 32-[address] [facility] Nucleated RBC/100 WBC (Bld) [Ratio] 0 % 0-5 [facility] Platelet mean volume (Bld) [Entitic vol] 11.1 fL 6.2-12.0 [facility] Platelets (Bld) [#/Vol] 253 10*3/uL 150-450 [facility] No Panel InformationOrdered By: Morgan Lanier on 06-02-2023 C-Reactive Protein Extended Range < 2.90 mg/L 0.0-3.0 [facility] Comment on above: C-Reactive Protein ( CRP) provides useful information for thediagnosis, therapy and monitoring of inflammatory processesand associated diseases. For the evaluation of Relative Riskfor Cardiovascular Disease, a High Sensitivity CRP (HSCRP)should be ordered. Estimated GFR (MDRD) Amer 142 mL/min >60 [facility] Comment on above: GFR Calc Estimated GFR (MDRD) Non-Af Amer 118 mL/min >60 [facility] Comment on above: Non- GFR Calc RBC Auto (Bld) [#/Vol]Ordere d By: Morgan Lanier on 06-02-2023 RBC (Bld) [#/Vol] 3.91 10*6/uL 4.2-5.4 [facility] Serum or plasma calcium nicole urement (mass/volume)Ordered By: Morgan Lanier on 06-02-2023 Calcium [Mass/Vol] 9.3 mg/dL 8.5-10.1 [facility] Serum or plasma creatinine m easurement (mass/volume)Ordered By: Morgan Lanier on 06-02-2023 Creatinine [Mass/Vol] 0.56 mg/dL 0.55-1.[address] [facility] Comment on above: The validity of the calculated GFR & GFRAA in patients over 70 years has not been determined. Clinical correlation is essential. Serum or plasma urea nitroge n measurement (mass/volume)Ordered By: Morgan Lanier on 06-02-2023 Urea nitrogen [Mass/Vol] 7 mg/dL 7-18 [facility] Thin prep Papanicolaou smear with manual screeningOrdered By: Morgan Lanier on 06-02-2023 Thin prep Papanicolaou smear with manual screening 4.1 g/dL 3.2-5.0 [facility] Thin prep Papanicolaou smear with manual screening 21 U/L 15-37 [facility] Thin prep Papanicolaou smear with manual screening 4 5-15 [facility] Absolute lymphocyte countOrd ered By: Morgan Lanier on 04-07-2023 Lymphocytes Auto (Unsp spec) [#/Vol] 1.44 10*3/uL 0.83-4.51 [facility] Basophil percentageOrdered B y: Morgan Lanier on 04-07-2023 Basophils/100 WBC (Bld) 0.8 % 0-1 [facility] Bilirubin [Mass/Vol] 0.90 mg/dL 0.20-1.00 [facility] Comment on above: For patients on eltr ombopag therapy, use of Dimension [place] TBIL is not recommended. Chloride [Moles/Vol] 95 mmol/L 98-107 [facility] Eosinophils/100 WBC (Bld) 2.2 % 0-5 [facility] Glucose [Mass/Vol] 90 mg/dL 74-106 [facility] Neutrophils (Bld) [#/Vol] 1.7 10*3/uL 2.0-7.7 [facility] Neutrophils/100 WBC (Bld) 46.0 % 47-70 [facility] Potassium [Moles/Vol] 3.9 mmol/L 3.5-5.[address] [facility] Protein [Mass/Vol] 7.2 g/dL 6.4-8.2 [facility] Sodium [Moles/Vol] 128 mmol/L 136-145 [facility] WBC (Bld) [#/Vol] 3.6 10*3/uL 4.4-11.0 [facility] Blood erythrocytes count (nu mber/volume)Ordered By: Morgan Lanier on 04-07-2023 RBC (Bld) [#/Vol] 3.65 10*6/uL 4.2-5.4 [facility] Blood hemoglobin measurement (mass/volume)Ordered By: Morgan Lanier on 04-07-2023 Hemoglobin (Bld) [Mass/Vol] 11.4 g/dL 12.0-15.0 [facility] Blood lymphocytes/100 leukoc ytesOrdered By: Morgan Lanier on 04-07-2023 Lymphocytes/100 WBC (Bld) 39.9 % 19-41 [facility] Blood monocytes/100 leukocyt esOrdered By: Morgan Lanier on 04-07-2023 Monocytes/100 WBC (Bld) 10.8 % 0-10 [facility] Blood platelet mean volumeOr dered By: Morgan Lanier on 04-07-2023 Platelet mean volume (Bld) [Entitic vol] 10.7 fL 6.2-12.0 [facility] Determination of erythrocyte mean corpuscular volume (MCV)Ordered By: Morgan Lanier on 04-07-2023 MCV (RBC) [Entitic vol] 94.0 fL 81-99 [facility] Hematocrit Auto (Bld) [Volum e fraction]Ordered By: Morgan Lanier on 04-07-2023 Hematocrit (Bld) [Volume fraction] 34.3 % 37-47 [facility] Laboratory - Chemistry and C hemistry - challengeOrdered By: Morgan Lanier on 04-07-2023 ALP [Catalytic activity/Vol] 42 U/L 45-117 [facility] ALT [Catalytic activity/Vol] 16 U/L 13-56 [facility] CO2 [Moles/Vol] 27.0 mmol/L 21.0-32.0 [facility] Globulin (S) [Mass/Vol] 3.4 g/dL 2.2-4.2 [facility] Urea nitrogen/Creatinine [Mass ratio] 10.6 mg/mg 10-20 [facility] Laboratory - Hematology and Cell countsOrdered By: Morgan Lanier on 04-07-2023 Erythrocyte distribution width (RBC) [Entitic vol] 43.8 fL 35.1-43.9 [facility] Erythrocyte distribution width (RBC) [Ratio] 12.6 % 11.6-14.6 [facility] Immature granulocytes/100 WBC (Bld) 0.300 % 0.0-0.9 [facility] Comment on above: IG% - Immature Granu locytes (promyelocytes, myelocytes and metamyelocytes) > 1% indicates that a LEFT SHIFT is Present. MCH (RBC) [Entitic mass] 31.2 pg 27.0-32.0 [facility] Nucleated RBC/100 WBC (Bld) [Ratio] 0 % 0-5 [facility] MCHC Auto (RBC) [Mass/Vol]Or dered By: Morgan Lanier on 04-07-2023 MCHC (RBC) [Mass/Vol] 33.2 g/dL 32-[address] [facility] No Panel InformationOrdered By: Morgan Lanier on 04-07-2023 Estimated GFR (MDRD) Amer 142 mL/min >60 [facility] Comment on above: GFR Calc Estimated GFR (MDRD) Non-Af Amer 117 mL/min >60 [facility] Comment on above: Non- GFR Calc Platelets bldOrdered By: Morgan Lanier on 04-07-2023 Platelets (Bld) [#/Vol] 226 10*3/uL 150-450 [facility] Serum or plasma C reactive p rotein measurement (mass/volume)Ordered By: Morgan Lanier on 04-07-2023 CRP [Mass/Vol] mg/L 0.0-3.0 [facility] Comment on above: C-Reactive Protein ( CRP) provides useful information for thediagnosis, therapy and monitoring of inflammatory processesand associated diseases. For the evaluation of Relative Riskfor Cardiovascular Disease, a High Sensitivity CRP (HSCRP)should be ordered. Serum or plasma albumin nicole urement (mass/volume)Ordered By: Morgan Lanier on 04-07-2023 Albumin [Mass/Vol] 3.8 g/dL 3.2-5.0 [facility] Serum or plasma albumin/glob ulin mass ratioOrdered By: Morgan Lanier on 04-07-2023 Albumin/Globulin [Mass ratio] 1.1 {ratio} 0.9-2.4 [facility] Serum or plasma calcium nicole urement (mass/volume)Ordered By: Morgan Lanier on 04-07-2023 Calcium [Mass/Vol] 9.2 mg/dL 8.5-10.1 [facility] Serum or plasma creatinine m easurement (mass/volume)Ordered By: Morgan Lanier on 04-07-2023 Creatinine [Mass/Vol] 0.57 mg/dL 0.55-1.[address] [facility] Comment on above: The validity of the calculated GFR & GFRAA in patients over 70 years has not been determined. Clinical correlation is essential. Serum or plasma urea nitroge n measurement (mass/volume)Ordered By: Morgan Lanier on 04-07-2023 Urea nitrogen [Mass/Vol] 6 mg/dL 7-18 [facility] Thin prep Papanicolaou smear with manual screeningOrdered By: Morgan Lanier on 04-07-2023 Thin prep Papanicolaou smear with manual screening 16 U/L 15-37 [facility] Thin prep Papanicolaou smear with manual screening 6 5-15 [facility] Absolute lymphocyte countOrd ered By: Morgan Lanier on 02-10-2023 Lymphocytes Auto (Unsp spec) [#/Vol] 1.69 10*3/uL 0.83-4.51 [facility] Basophil percentageOrdered B y: Morgan Lanier on 02-10-2023 Basophils/100 WBC (Bld) 1.0 % 0-1 [facility] Bilirubin [Mass/Vol] 0.90 mg/dL 0.20-1.00 [facility] Comment on above: For patients on eltr ombopag therapy, use of Dimension [place] TBIL is not recommended. Chloride [Moles/Vol] 103 mmol/L 98-107 [facility] Eosinophils/100 WBC (Bld) 0.6 % 0-5 [facility] Glucose [Mass/Vol] 88 mg/dL 74-106 [facility] Neutrophils (Bld) [#/Vol] 2.7 10*3/uL 2.0-7.7 [facility] Neutrophils/100 WBC (Bld) 55.1 % 47-70 [facility] Potassium [Moles/Vol] 3.7 mmol/L 3.5-5.[address] [facility] Protein [Mass/Vol] 7.1 g/dL 6.4-8.2 [facility] Sodium [Moles/Vol] 136 mmol/L 136-145 [facility] WBC (Bld) [#/Vol] 4.9 10*3/uL 4.4-11.0 [facility] Blood erythrocytes count (nu mber/volume)Ordered By: Morgan Lanier on 02-10-2023 RBC (Bld) [#/Vol] 3.70 10*6/uL 4.2-5.4 [facility] Blood hemoglobin measurement (mass/volume)Ordered By: Morgan Lanier on 02-10-2023 Hemoglobin (Bld) [Mass/Vol] 11.5 g/dL 12.0-15.0 [facility] Blood lymphocytes/100 leukoc ytesOrdered By: Morgan Lanier on 02-10-2023 Lymphocytes/100 WBC (Bld) 34.2 % 19-41 [facility] Blood monocytes/100 leukocyt esOrdered By: Morgan Lanier on 02-10-2023 Monocytes/100 WBC (Bld) 8.9 % 0-10 [facility] Blood platelet mean volumeOr dered By: Morgan Lanier on 02-10-2023 Platelet mean volume (Bld) [Entitic vol] 12.0 fL 6.2-12.0 [facility] Determination of erythrocyte mean corpuscular volume (MCV)Ordered By: Morgan Lanier on 02-10-2023 MCV (RBC) [Entitic vol] 94.3 fL 81-99 [facility] Hematocrit Auto (Bld) [Volum e fraction]Ordered By: Morgan Lanier on 02-10-2023 Hematocrit (Bld) [Volume fraction] 34.9 % 37-47 [facility] Laboratory - Chemistry and C hemistry - challengeOrdered By: Morgan Lanier on 02-10-2023 ALP [Catalytic activity/Vol] 42 U/L 45-117 [facility] ALT [Catalytic activity/Vol] 16 U/L 13-56 [facility] CO2 [Moles/Vol] 26.0 mmol/L 21.0-32.0 [facility] Globulin (S) [Mass/Vol] 3.1 g/dL 2.2-4.2 [facility] Urea nitrogen/Creatinine [Mass ratio] 6.4 mg/mg 10-20 [facility] Laboratory - Hematology and Cell countsOrdered By: Morgan Lanier on 02-10-2023 Erythrocyte distribution width (RBC) [Entitic vol] 43.7 fL 35.1-43.9 [facility] Erythrocyte distribution width (RBC) [Ratio] 12.6 % 11.6-14.6 [facility] Immature granulocytes/100 WBC (Bld) 0.200 % 0.0-0.9 [facility] Comment on above: IG% - Immature Granu locytes (promyelocytes, myelocytes and metamyelocytes) > 1% indicates that a LEFT SHIFT is Present. MCH (RBC) [Entitic mass] 31.1 pg 27.0-32.0 [facility] Nucleated RBC/100 WBC (Bld) [Ratio] 0 % 0-5 [facility] MCHC Auto (RBC) [Mass/Vol]Or dered By: Morgan Lanier on 02-10-2023 MCHC (RBC) [Mass/Vol] 33.0 g/dL 32-[address] [facility] No Panel InformationOrdered By: Morgan Lanier on 02-10-2023 Estimated GFR (MDRD) Amer 126 mL/min >60 [facility] Comment on above: GFR Calc Estimated GFR (MDRD) Non-Af Amer 105 mL/min >60 [facility] Comment on above: Non- GFR Calc Platelets bldOrdered By: Morgan Lanier on 02-10-2023 Platelets (Bld) [#/Vol] 215 10*3/uL 150-450 [facility] Serum or plasma C reactive p rotein measurement (mass/volume)Ordered By: Morgan Lanier on 02-10-2023 CRP [Mass/Vol] mg/L 0.0-3.0 [facility] Comment on above: C-Reactive Protein ( CRP) provides useful information for thediagnosis, therapy and monitoring of inflammatory processesand associated diseases. For the evaluation of Relative Riskfor Cardiovascular Disease, a High Sensitivity CRP (HSCRP)should be ordered. Serum or plasma albumin nicole urement (mass/volume)Ordered By: Morgan Lanier on 02-10-2023 Albumin [Mass/Vol] 4.0 g/dL 3.2-5.0 [facility] Serum or plasma albumin/glob ulin mass ratioOrdered By: Morgan Lanier on 02-10-2023 Albumin/Globulin [Mass ratio] 1.3 {ratio} 0.9-2.4 [facility] Serum or plasma calcium nicole urement (mass/volume)Ordered By: Morgan Lanier on 02-10-2023 Calcium [Mass/Vol] 9.0 mg/dL 8.5-10.1 [facility] Serum or plasma creatinine m easurement (mass/volume)Ordered By: Morgan Lanier on 02-10-2023 Creatinine [Mass/Vol] 0.63 mg/dL 0.55-1.[address] [facility] Comment on above: The validity of the calculated GFR & GFRAA in patients over 70 years has not been determined. Clinical correlation is essential. Serum or plasma urea nitroge n measurement (mass/volume)Ordered By: Morgan Lanier on 02-10-2023 Urea nitrogen [Mass/Vol] 4 mg/dL 7-18 [facility] Thin prep Papanicolaou smear with manual screeningOrdered By: Morgan Lanier on 02-10-2023 Thin prep Papanicolaou smear with manual screening 17 U/L 15-37 [facility] Thin prep Papanicolaou smear with manual screening 7 5-15 [facility] Absolute lymphocyte countOrd ered By: Morgan Lanier on 12-09-2022 Lymphocytes Auto (Unsp spec) [#/Vol] 1.34 10*3/uL 0.83-4.51 [facility] Basophil percentageOrdered B y: Morgan Lanier on 12-09-2022 Basophils/100 WBC (Bld) 1.5 % 0-1 [facility] Bilirubin [Mass/Vol] 0.70 mg/dL 0.20-1.00 [facility] Comment on above: For patients on eltr ombopag therapy, use of Dimension [place] TBIL is not recommended. Chloride [Moles/Vol] 104 mmol/L 98-107 [facility] Eosinophils/100 WBC (Bld) 2.2 % 0-5 [facility] Glucose [Mass/Vol] 90 mg/dL 74-106 [facility] Neutrophils (Bld) [#/Vol] 2.1 10*3/uL 2.0-7.7 [facility] Neutrophils/100 WBC (Bld) 53.2 % 47-70 [facility] Potassium [Moles/Vol] 3.6 mmol/L 3.5-5.[address] [facility] Protein [Mass/Vol] 7.6 g/dL 6.4-8.2 [facility] Sodium [Moles/Vol] 136 mmol/L 136-145 [facility] WBC (Bld) [#/Vol] 4.0 10*3/uL 4.4-11.0 [facility] Bilirubin Test strip Ql (U)O rdered By: Morgan Lanier on 12-09-2022 Bilirubin Ql (U) Negative Negative [facility] Blood erythrocytes count (nu mber/volume)Ordered By: Morgan Lanier on 12-09-2022 RBC (Bld) [#/Vol] 3.97 10*6/uL 4.2-5.4 [facility] Blood hemoglobin measurement (mass/volume)Ordered By: Morgan Lanier on 12-09-2022 Hemoglobin (Bld) [Mass/Vol] 12.5 g/dL 12.0-15.0 [facility] Blood lymphocytes/100 leukoc ytesOrdered By: Morgan Lanier on 12-09-2022 Lymphocytes/100 WBC (Bld) 33.4 % 19-41 [facility] Blood monocytes/100 leukocyt esOrdered By: Morgan Lanier on 12-09-2022 Monocytes/100 WBC (Bld) 9.5 % 0-10 [facility] Blood platelet mean volumeOr dered By: Morgan Lanier on 12-09-2022 Platelet mean volume (Bld) [Entitic vol] 11.0 fL 6.2-12.0 [facility] Determination of erythrocyte mean corpuscular volume (MCV)Ordered By: Morgan Lanier on 12-09-2022 MCV (RBC) [Entitic vol] 95.2 fL 81-99 [facility] Hematocrit Auto (Bld) [Volum e fraction]Ordered By: Morgan Lanier on 12-09-2022 Hematocrit (Bld) [Volume fraction] 37.8 % 37-47 [facility] Ketones Test strip Ql (U)Ord ered By: Morgan Lanier on 12-09-2022 Ketones Ql (U) Negative Negative [facility] Laboratory - Chemistry and C hemistry - challengeOrdered By: Morgan Lanier on 12-09-2022 ALP [Catalytic activity/Vol] 42 U/L 45-117 [facility] ALT [Catalytic activity/Vol] 20 U/L 13-56 [facility] CO2 [Moles/Vol] 26.0 mmol/L 21.0-32.0 [facility] Globulin (S) [Mass/Vol] 3.4 g/dL 2.2-4.2 [facility] Urea nitrogen/Creatinine [Mass ratio] 16.4 mg/mg 10-20 [facility] Laboratory - Hematology and Cell countsOrdered By: Morgan Lainer on 12-09-2022 Erythrocyte distribution width (RBC) [Entitic vol] 45.1 fL 35.1-43.9 [facility] Erythrocyte distribution width (RBC) [Ratio] 12.9 % 11.6-14.6 [facility] Immature granulocytes/100 WBC (Bld) 0.200 % 0.0-0.9 [facility] Comment on above: IG% - Immature Granu locytes (promyelocytes, myelocytes and metamyelocytes) > 1% indicates that a LEFT SHIFT is Present. MCH (RBC) [Entitic mass] 31.5 pg 27.0-32.0 [facility] Nucleated RBC/100 WBC (Bld) [Ratio] 0 % 0-5 [facility] MCHC Auto (RBC) [Mass/Vol]Or dered By: Morgan Lanier on 12-09-2022 MCHC (RBC) [Mass/Vol] 33.1 g/dL 32-[address] [facility] Nitrite Test strip Ql (U)Ord ered By: Morgan Lanier on 12-09-2022 Nitrite Ql (U) Negative Negative [facility] No Panel InformationOrdered By: Morgan Lanier on 12-09-2022 Estimated GFR (MDRD) Amer 117 mL/min >60 [facility] Comment on above: GFR Calc Estimated GFR (MDRD) Non-Af Amer 96 mL/min >60 [facility] Comment on above: Non- GFR Calc No Panel InformationOrdered By: Ruchi Wu on 12-09-2022 Thyroid Stimulating Hormone (TSH) 1.37 uIU/mL 0.358-3.74 [facility] Platelets bldOrdered By: Morgan Lanier on 12-09-2022 Platelets (Bld) [#/Vol] 235 10*3/uL 150-450 [facility] Protein Test strip Ql (U)Ord ered By: Morgan Lanier on 12-09-2022 Protein Ql (U) Negative Negative [facility] Serum or plasma C reactive p rotein measurement (mass/volume)Ordered By: Morgan Lanier on 12-09-2022 CRP [Mass/Vol] mg/L 0.0-3.0 [facility] Comment on above: C-Reactive Protein ( CRP) provides useful information for thediagnosis, therapy and monitoring of inflammatory processesand associated diseases. For the evaluation of Relative Riskfor Cardiovascular Disease, a High Sensitivity CRP (HSCRP)should be ordered. Serum or plasma albumin nicole urement (mass/volume)Ordered By: Morgan Lanier on 12-09-2022 Albumin [Mass/Vol] 4.2 g/dL 3.2-5.0 [facility] Serum or plasma albumin/glob ulin mass ratioOrdered By: Morgan Lanier on 12-09-2022 Albumin/Globulin [Mass ratio] 1.2 {ratio} 0.9-2.4 [facility] Serum or plasma calcium nicole urement (mass/volume)Ordered By: Morgan Lanier on 12-09-2022 Calcium [Mass/Vol] 9.1 mg/dL 8.5-10.1 [facility] Serum or plasma creatinine m easurement (mass/volume)Ordered By: Morgan Lanier on 12-09-2022 Creatinine [Mass/Vol] 0.67 mg/dL 0.55-1.[address] [facility] Comment on above: The validity of the calculated GFR & GFRAA in patients over 70 years has not been determined. Clinical correlation is essential. Serum or plasma urea nitroge n measurement (mass/volume)Ordered By: Morgan Lanier on 12-09-2022 Urea nitrogen [Mass/Vol] 11 mg/dL 7-18 [facility] Thin prep Papanicolaou smear with manual screeningOrdered By: Morgan Lanier on 12-09-2022 Thin prep Papanicolaou smear with manual screening 19 U/L 15-37 [facility] Thin prep Papanicolaou smear with manual screening 6 5-15 [facility] Urine blood detectionOrdered By: Morgan Lanier on 12-09-2022 RBC Ql (U) Negative Negative [facility] Urine clarityOrdered By: Morgan Lanier on 12-09-2022 Clarity (U) Clear Clear [facility] Urine color determinationOrd ered By: Morgan Lanier on 12-09-2022 Color (U) Yellow Yellow [facility] Urine glucose detectionOrder ed By: Morgan Lanier on 12-09-2022 Glucose Ql (U) Normal mg/dl Normal [facility] Urine leukocyte esterase det ection by dipstickOrdered By: Morgan Lanier on 12-09-2022 Leukocyte esterase Test strip Ql (U) Negative Negative [facility] Urine pHOrdered By: Morgan willingham on 12-09-2022 pH (U) 6.5 [pH] 5.0 - 8.0 [facility] Urine specific gravity measu rementOrdered By: Morgan Lanier on 12-09-2022 Specific gravity (U) [Rel density] 1.010 1.002-1.[address] [facility] Urobilinogen Auto test strip Ql (U)Ordered By: Morgan Lanier on 12-09-2022 Urobilinogen Ql (U) Normal mg/dl Normal [facility] Follow Up (Rheumatology)on 0 12-04-2022 Follow Up (Rheumatology) Diagnoses/Problems Assessed Systemic lupus erythematosus, unspecified SLE type, unspecified organ involvement status (710.0) (M32.9) Orders Systemic lupus erythematosus, unspecified SLE type, unspecified organ involvement status Renew: Hydroxychloroquine Sulfate 200 MG Oral Tablet; Take 1 tablet daily Rx By: Morgan Lanier; Dispense: 90 Days ; #:90 Tablet; Refill: 2;For: Systemic lupus erythematosus, unspecified SLE type, unspecified organ involvement status; ENRIQUE = N; Verified Transmission to [facility]; Last Updated By: [employer]; 12/04/2022 3:36:25 PM C Reactive Protein, Serum; Status:Active; Requested for:04Dec2022; Perform:Lab Services - Lab To Draw (Blood Test); Due:04Mar2023;Ordered; For:Systemic lupus erythematosus, unspecified SLE type, unspecified organ involvement status; Ordered By:Morgan Lanier; Renew: Mycophenolate Mofetil 250 MG Oral Capsule; TAKE 1 CAPSULE BY MOUTH TWICE A DAY Rx By: Morgan Lanier; Dispense: 0 Days ; #:180 Capsule; Refill: 2;For: Systemic lupus erythematosus, unspecified SLE type, unspecified organ involvement status; ENRIQUE = N; Verified Transmission to [facility]; Last Updated By: [email or web address]; 12/04/2022 3:36:28 PM C Reactive Protein, Serum; Status:Discontinued - Order Generated; Requested for:Recurring Schedule: 01/16/2022; 03/13/2022; 05/08/2022; 07/03/2022; 08/28/2022; 10/23/2022; 12/18/2022 ; Perform:Lab Services - Lab To Draw (Blood Test); Due:16Apr2022;Ordered; For:Systemic lupus erythematosus, unspecified SLE type, unspecified organ involvement status; Ordered By:Morgan Lanier; C Reactive Protein, Serum; Status:In Progress - Order Generated; Requested for:Recurring Schedule: 12/04/2022; 01/29/2023; 03/26/2023; 05/21/2023; 07/16/2023; 09/10/2023; 11/05/2023 ; Perform:Lab Services - Lab To Draw (Blood Test); Due:04Mar2023;Ordered; For:Systemic lupus erythematosus, unspecified SLE type, unspecified organ involvement status; Ordered By:Morgan Lanier; Complete Blood Count + Differential; Status:Active; Requested for:04Dec2022; Perform:Lab Services - Lab To Draw (Blood Test); Due:04Mar2023;Ordered; For:Systemic lupus erythematosus, unspecified SLE type, unspecified organ involvement status; Ordered By:Morgan Lanier; Complete Blood Count + Differential; Status:Discontinued - Order Generated; Requested for:Recurring Schedule: 01/16/2022; 03/13/2022; 05/08/2022; 07/03/2022; 08/28/2022; 10/23/2022; 12/18/2022 ; Perform:Lab Services - Lab To Draw (Blood Test); Due:16Apr2022;Ordered; For:Systemic lupus erythematosus, unspecified SLE type, unspecified organ involvement status; Ordered By:Morgan Lanier; Complete Blood Count + Differential; Status:In Progress - Order Generated; Requested for:Recurring Schedule: 12/04/2022; 01/29/2023; 03/26/2023; 05/21/2023; 07/16/2023; 09/10/2023; 11/05/2023 ; Perform:Lab Services - Lab To Draw (Blood Test); Due:[id number];Ordered; For:Systemic lupus erythematosus, unspecified SLE type, unspecified organ involvement status; Ordered By:Morgan Lanier; Comprehensive Metabolic Panel; Status:Active; Requested for:[id number]; Perform:Lab Services - Lab To Draw (Blood Test); Due:[id number];Ordered; For:Systemic lupus erythematosus, unspecified SLE type, unspecified organ involvement status; Ordered By:Morgan Lanier; Comprehensive Metabolic Panel; Status:Discontinued - Order Generated; Requested for:Recurring Schedule: 01/16/2022; 03/13/2022; 05/08/2022; 07/03/2022; 08/28/2022; 10/23/2022; 12/18/2022 ; Perform:Lab Services - Lab To Draw (Blood Test); Due:16Apr2022;Ordered; For:Systemic lupus erythematosus, unspecified SLE type, unspecified organ involvement status; Ordered By:Morgan Lanier; Comprehensive Metabolic Panel; Status:In Progress - Order Generated; Requested for:Recurring Schedule: 12/04/2022; 01/29/2023; 03/26/2023; 05/21/2023; 07/16/2023; 09/10/2023; 11/05/2023 ; Perform:Lab Services - Lab To Draw (Blood Test); Due:[id number];Ordered; For:Systemic lupus erythematosus, unspecified SLE type, unspecified organ involvement status; Ordered By:Morgan Lanier; Urinalysis; Status:Active; Requested for:[id number]; Perform:Lab Services - Lab To Draw (Non-Blood Test); Due:[id number];Ordered; For:Systemic lupus erythematosus, unspecified SLE type, unspecified organ involvement status; Ordered By:Morgan Lanier; Chief Complaint 4 month f/u. C/O pain in both knees and both hands. RW, SHIELA History of Present IllnessShe developed significant pain in the left knee and left posterior calf after participating in the [employer] run 3 weeks ago. She was evaluated by orthopedics and found to have a peroneal tendon tear in the left calf and continues to have a left popliteal cyst. She is planning to have MRI scan of the left knee for further evaluation. She notes otherwise that the pain in her joints have been under improved control with taking mycophenolate and hydroxychloroquine. The lungs, heart, abdomen, and extremities are benign. The musculoskeletal examination does not show any joint effusions. There is good passive range (more content not included)... Normal [employer] Tobacco Screening.on 023 Fall risk assessment a) No falls within the last year [facility] [employer] Work Phone: Tobacco use status CPHS b) No M [facility] [employer] Work Phone: Absolute lymphocyte countOrd ered By: Morgan Lanier on 11-15-2022 Lymphocytes Auto (Unsp spec) [#/Vol] 1.30 10*3/uL 0.83-4.51 [facility] Basophil percentageOrdered B y: Morgan Lanier on 11-15-2022 Basophils/100 WBC (Bld) 1.3 % 0-1 [facility] Bilirubin [Mass/Vol] 0.80 mg/dL 0.20-1.00 [facility] Comment on above: For patients on eltr ombopag therapy, use of Dimension Polson TBIL is not recommended. Chloride [Moles/Vol] 93 mmol/L 98-107 [facility] Eosinophils/100 WBC (Bld) 1.9 % 0-5 [facility] Glucose [Mass/Vol] 82 mg/dL 74-106 [facility] Neutrophils (Bld) [#/Vol] 1.9 10*3/uL 2.0-7.7 [facility] Neutrophils/100 WBC (Bld) 51.0 % 47-70 [facility] Potassium [Moles/Vol] 4.1 mmol/L 3.5-5.[address] [facility] Protein [Mass/Vol] 7.3 g/dL 6.4-8.2 [facility] Sodium [Moles/Vol] 128 mmol/L 136-145 [facility] WBC (Bld) [#/Vol] 3.7 10*3/uL 4.4-11.0 [facility] Blood erythrocytes count (nu mber/volume)Ordered By: Morgan Lanier on 11-15-2022 RBC (Bld) [#/Vol] 3.87 10*6/uL 4.2-5.4 [facility] Blood hemoglobin measurement (mass/volume)Ordered By: Morgan Lanier on 11-15-2022 Hemoglobin (Bld) [Mass/Vol] 12.2 g/dL 12.0-15.0 [facility] Blood lymphocytes/100 leukoc ytesOrdered By: Morgan Lanier on 11-15-2022 Lymphocytes/100 WBC (Bld) 34.8 % 19-41 [facility] Blood monocytes/100 leukocyt esOrdered By: Morgan Lanier on 11-15-2022 Monocytes/100 WBC (Bld) 10.7 % 0-10 [facility] Blood platelet mean volumeOr dered By: Morgan Lanier on 11-15-2022 Platelet mean volume (Bld) [Entitic vol] 11.6 fL 6.2-12.0 [facility] Determination of erythrocyte mean corpuscular volume (MCV)Ordered By: Morgan Lanier on 11-15-2022 MCV (RBC) [Entitic vol] 94.8 fL 81-99 [facility] Hematocrit Auto (Bld) [Volum e fraction]Ordered By: Morgan Lanier on 11-15-2022 Hematocrit (Bld) [Volume fraction] 36.7 % 37-47 [facility] Laboratory - Chemistry and C hemistry - challengeOrdered By: Morgan Lanier on 11-15-2022 ALP [Catalytic activity/Vol] 40 U/L 45-117 [facility] ALT [Catalytic activity/Vol] 17 U/L 13-56 [facility] CO2 [Moles/Vol] 28.0 mmol/L 21.0-32.0 [facility] Globulin (S) [Mass/Vol] 3.4 g/dL 2.2-4.2 [facility] Urea nitrogen/Creatinine [Mass ratio] 12.4 mg/mg 10-20 [facility] Laboratory - Hematology and Cell countsOrdered By: Morgan Lanier on 11-15-2022 Erythrocyte distribution width (RBC) [Entitic vol] 44.3 fL 35.1-43.9 [facility] Erythrocyte distribution width (RBC) [Ratio] 12.8 % 11.6-14.6 [facility] Immature granulocytes/100 WBC (Bld) 0.300 % 0.0-0.9 [facility] Comment on above: IG% - Immature Granu locytes (promyelocytes, myelocytes and metamyelocytes) > 1% indicates that a LEFT SHIFT is Present. MCH (RBC) [Entitic mass] 31.5 pg 27.0-32.0 [facility] Nucleated RBC/100 WBC (Bld) [Ratio] 0 % 0-5 [facility] MCHC Auto (RBC) [Mass/Vol]Or dered By: Morgan Lanier on 11-15-2022 MCHC (RBC) [Mass/Vol] 33.2 g/dL 32-[address] [facility] No Panel InformationOrdered By: Morgan Lanier on 11-15-2022 Estimated GFR (MDRD) Amer 142 mL/min >60 [facility] Comment on above: GFR Calc Estimated GFR (MDRD) Non-Af Amer 118 mL/min >60 [facility] Comment on above: Non- GFR Calc Platelets bldOrdered By: Morgan Lanier on 11-15-2022 Platelets (Bld) [#/Vol] 220 10*3/uL 150-450 [facility] Serum or plasma C reactive p rotein measurement (mass/volume)Ordered By: Morgan Lanier on 11-15-2022 CRP [Mass/Vol] mg/L 0.0-3.0 [facility] Comment on above: C-Reactive Protein ( CRP) provides useful information for thediagnosis, therapy and monitoring of inflammatory processesand associated diseases. For the evaluation of Relative Riskfor Cardiovascular Disease, a High Sensitivity CRP (HSCRP)should be ordered. Serum or plasma albumin nicole urement (mass/volume)Ordered By: Morgan Lanier on 11-15-2022 Albumin [Mass/Vol] 3.9 g/dL 3.2-5.0 [facility] Serum or plasma albumin/glob ulin mass ratioOrdered By: Morgan Lanier on 11-15-2022 Albumin/Globulin [Mass ratio] 1.1 {ratio} 0.9-2.4 [facility] Serum or plasma calcium nicole urement (mass/volume)Ordered By: Morgan Lanier on 11-15-2022 Calcium [Mass/Vol] 8.7 mg/dL 8.5-10.1 [facility] Serum or plasma creatinine m easurement (mass/volume)Ordered By: Morgan Lanier on 11-15-2022 Creatinine [Mass/Vol] 0.56 mg/dL 0.55-1.[address] [facility] Comment on above: The validity of the calculated GFR & GFRAA in patients over 70 years has not been determined. Clinical correlation is essential. Serum or plasma urea nitroge n measurement (mass/volume)Ordered By: Morgan Lanier on 11-15-2022 Urea nitrogen [Mass/Vol] 7 mg/dL 18 [facility] Thin prep Papanicolaou smear with manual screeningOrdered By: Morgan Lanier on 11-15-2022 Thin prep Papanicolaou smear with manual screening 15 U/L 15-37 [facility] Thin prep Papanicolaou smear with manual screening 7 5-15 [facility] Basophil percentageOrdered B y: Irma Ybarra on 10-18-2022 WBC (Bld) [#/Vol] 3.8 10*3/uL 4.4-11.0 [facility] Blood erythrocytes count (nu mber/volume)Ordered By: Irma Ybarra on 10-18-2022 RBC (Bld) [#/Vol] 3.86 10*6/uL 4.2-5.4 [facility] Blood hemoglobin measurement (mass/volume)Ordered By: Irma Ybarra on 10-18-2022 Hemoglobin (Bld) [Mass/Vol] 12.3 g/dL 12.0-15.0 [facility] Blood platelet mean volumeOr dered By: Irma Ybarra on 10-18-2022 Platelet mean volume (Bld) [Entitic vol] 11.8 fL 6.2-12.0 [facility] Determination of erythrocyte mean corpuscular volume (MCV)Ordered By: Irma Ybarra on 10-18-2022 MCV (RBC) [Entitic vol] 95.9 fL 81-99 [facility] Hematocrit Auto (Bld) [Volum e fraction]Ordered By: Irma Ybarra on 10-18-2022 Hematocrit (Bld) [Volume fraction] 37.0 % 37-47 [facility] - Hematology and Cell countsOrdered By: Irma Ybarra on 10-18-2022 Erythrocyte distribution width (RBC) [Entitic vol] 45.2 fL 35.1-43.9 [facility] Erythrocyte distribution width (RBC) [Ratio] 12.9 % 11.6-14.6 [facility] MCH (RBC) [Entitic mass] 31.9 pg 27.0-32.0 [facility] MCHC Auto (RBC) [Mass/Vol]Or dered By: Irma Ybarra on 10-18-2022 MCHC (RBC) [Mass/Vol] 33.2 g/dL 32-[address] [facility] Platelets bldOrdered By: Nyla Ybarra on 10-18-2022 Platelets (Bld) [#/Vol] 235 10*3/uL 150-450 [facility] Cervical or vagninal specime n microscopic examination by cytology stain (reported asOrdered By: Dr. Ybarra on 09-11-2022 Cytology report Cyto stain Doc (Cvx/Vag) Comment . [facility] Comment on above: The Pap smear is a s creening test designed to aid in thedetection of premalignant and malignant conditions of theuterine cervix. It is not a diagnostic procedure andshould not be used as the sole means of detecting cervicalcancer. Both false-positive and false-negative reports dooccur. Detection in cervical specim en of any of human papilloma virus (HPV) 16, 18, 31, 33,Ordered By: Dr. Ybarra on 09-11-2022 HPV 16+18+31+33+35+39+45+51 +52+56+58+59+66+68 DNA Probe+sig amp Ql (Cvx) Negative Negative [facility] Comment on above: This nucleic acid am plification test detects fourteen high-risk HPV types (16,18,31,33,35,39,45,51,52,56,58,59,66,68)without differentiation. Laboratory - CytologyOrdered By: Dr. Ybarra on 09-11-2022 Principal Java Software Engineer Cyto stain Nom (Cvx/Vag) [ID] Comment . [facility] Comment on above: Moose Vazquez, Cyto technologist (ASCP) Laboratory - Miscellaneous t estsOrdered By: Dr. Ybarra on 09-11-2022 Service comment (Unsp spec) [Interp] Comment . [facility] Comment on above: This liquid based Th inPrep(R) pap test was screened withthe use of an image guided system. Service comment (Unsp spec) [Interp] . . [facility] Liquid-based cerv Pap + CT/G C by ARLETH w reflex to high-risk HPV for ASCUSOrdered By: Dr. Ybarra on 09-11-2022 Cytology report Cyto stain.thin prep Doc (Cvx/Vag) Comment . [facility] Comment on above: Criteria not met, HP V Genotype not performed.Performed at: [facility] - [facility] [id number] Director: Rukhsana Miller MD, Phone: [phone] at: =[facility] - [facility] [id number] Director: Rukhsana Miller MD, Phone: [phone] No Panel InformationOrdered By: Dr. Ybarra on 09-11-2022 Pathology report final diagnosis Narrative Comment . [facility] Comment on above: NEGATIVE FOR INTRAEP ITHELIAL LESION OR MALIGNANCY. Absolute lymphocyte countOrd ered By: Dr. Lanier on 08-28-2022 Lymphocytes Auto (Unsp spec) [#/Vol] 1.60 10*3/uL 0.83-4.51 [facility] Basophil percentageOrdered B y: Dr. Lanier on 08-28-2022 Basophils/100 WBC (Bld) 1.6 % 0-1 [facility] Bilirubin [Mass/Vol] 0.40 mg/dL 0.20-1.00 [facility] Comment on above: For patients on eltr ombopag therapy, use of Dimension Polson TBIL is not recommended. Chloride [Moles/Vol] 102 mmol/L 98-107 [facility] Eosinophils/100 WBC (Bld) 2.7 % 0-5 [facility] Glucose [Mass/Vol] 88 mg/dL 74-106 [facility] Neutrophils (Bld) [#/Vol] 1.6 10*3/uL 2.0-7.7 [facility] Neutrophils/100 WBC (Bld) 41.6 % 47-70 [facility] Potassium [Moles/Vol] 4.0 mmol/L 3.5-5.[address] [facility] Protein [Mass/Vol] 7.4 g/dL 6.4-8.2 [facility] Sodium [Moles/Vol] 138 mmol/L 136-145 [facility] WBC (Bld) [#/Vol] 3.7 10*3/uL 4.4-11.0 [facility] Blood erythrocytes count (nu mber/volume)Ordered By: Dr. Lanier on 08-28-2022 RBC (Bld) [#/Vol] 3.80 10*6/uL 4.2-5.4 [facility] Blood hemoglobin measurement (mass/volume)Ordered By: Dr. Lanier on 08-28-2022 Hemoglobin (Bld) [Mass/Vol] 11.9 g/dL 12.0-15.0 [facility] Blood lymphocytes/100 leukoc ytesOrdered By: Dr. Lanier on 08-28-2022 Lymphocytes/100 WBC (Bld) 42.8 % 19-41 [facility] Blood monocytes/100 leukocyt esOrdered By: Dr. Lanier on 08-28-2022 Monocytes/100 WBC (Bld) 11.0 % 0-10 [facility] Blood platelet mean volumeOr dered By: Dr. Lanier on 08-28-2022 Platelet mean volume (Bld) [Entitic vol] 11.7 fL 6.2-12.0 [facility] Determination of erythrocyte mean corpuscular volume (MCV)Ordered By: Dr. Lanier on 08-28-2022 MCV (RBC) [Entitic vol] 98.2 fL 81-99 [facility] Hematocrit Auto (Bld) [Volum e fraction]Ordered By: Dr. Lanier on 08-28-2022 Hematocrit (Bld) [Volume fraction] 37.3 % 37-47 [facility] Laboratory - Chemistry and C hemistry - challengeOrdered By: Dr. Lanier on 08-28-2022 ALP [Catalytic activity/Vol] 40 U/L 45-117 [facility] ALT [Catalytic activity/Vol] 17 U/L 13-56 [facility] CO2 [Moles/Vol] 31.0 mmol/L 21.0-32.0 [facility] Globulin (S) [Mass/Vol] 3.6 g/dL 2.2-4.2 [facility] Urea nitrogen/Creatinine [Mass ratio] 9.9 mg/mg 10-20 [facility] Laboratory - Hematology and Cell countsOrdered By: Dr. Lanier on 08-28-2022 Erythrocyte distribution width (RBC) [Entitic vol] 45.8 fL 35.1-43.9 [facility] Erythrocyte distribution width (RBC) [Ratio] 12.7 % 11.6-14.6 [facility] Immature granulocytes/100 WBC (Bld) 0.300 % 0.0-0.9 [facility] Comment on above: IG% - Immature Granu locytes (promyelocytes, myelocytes and metamyelocytes) > 1% indicates that a LEFT SHIFT is Present. MCH (RBC) [Entitic mass] 31.3 pg 27.0-32.0 [facility] Nucleated RBC/100 WBC (Bld) [Ratio] 0 % 0-5 [facility] MCHC Auto (RBC) [Mass/Vol]Or dered By: Dr. Lanier on 08-28-2022 MCHC (RBC) [Mass/Vol] 31.9 g/dL 32-[address] [facility] No Panel InformationOrdered By: Dr. Lanier on 08-28-2022 Estimated GFR (MDRD) Amer 111 mL/min >60 [facility] Comment on above: GFR Calc Estimated GFR (MDRD) Non-Af Amer 91 mL/min >60 [facility] Comment on above: Non- GFR Calc Miscellaneous Test See comment [facility] Comment on above: TEST RESULT LIMITSHL A-B (IR) HLA-B B*44:02:01G HLA-B B*47:01:01GThe following alleles could not be ruled out:B* 44:02:01::02:01::02:01::02:01::02:01::02:01::02:01::02:01::02:01::02:01::02:01::02:01::02:01::02:01::02:01::02:01::02:01::02:01::02:01::02:01::02:01::02:01::02:01::02:01::02:01::02:01::02:01::02:01::02:01::02:01::02:01::02:01::02:01:44:02:01:3444:02:01:3544:02:01:36 44:02:01:3744:02:01:44:02:01:3944:02:01:40 44:02:01:44:02:01:4244:02:01:4344:02:01:44:02:01:4544:02:01:4644:02:01:47/44:02:01:48 /44:02:01:49/44:02:01:50/44:02:01:51/44:02:01:52 /44:02:01:53/44:02:01:54/44:02:01:55/44:02:01:56 /44:02:01:57/44:02:01:58/44:02:01:5944:02:01:60 44:02:01:6144:02:01:6244:02:01:6344:02:01:64 44:02:01:6544:02:01:6644:02:01:6744:02:01:68 44:02:01:6944:02:01:7044:02:01:7144:02:01:72 44:02:01:7344:02:2544:02:2744:02:4644:02:49:01 44:02:49:0244:02:5244:02:5344:02:5544:02:56 44:02:5944:02:6044:02:6244:02:6344:02:68 44:02:7144:02:7244:02:75/44:19N/44:27:01:01 44:27:01:0244:27:01:0344:27:01:0444:27:04/44:66 /44:118/44:187/44:243/44:262/44:267N/44:270:01 /44:270:02/44:279/44:292/44:301/44:303N/44:306N /44:311/44:313/44:315/44:321/44:334N/44:338/44:341N /44:344/44:351/44:437/44:457/44:461/44:462 /44:464:01:44:464:01:02/44:467/44:468/44:470 /44:473/44:477/44:478/44:479/44:484/44:492/44:498 /44:503/44:515/44:517/44:520/44:521/44:523NB* 47:01:01:02/47:01:01:03/47:01:01:04/47:01:01:05 /47:01:01:47:01:02/47:01:04/47:01:05/47:12HLA allele interpretation for all loci based on IMGT/HLAdatabase version 3.49.0This test was developed and its performance characteristicsdetermined by [facility]. It has not been cleared or approvedby the Food and Drug Administration.[facility]LA Lab CLIA ID Number [id number] Methodology HLA results were obtained using sequence based typing (SBT),sequence specific oligonucleotide probes (SSOP), and/or sequence specific primers (SSP) as needed to obtain the required resolution.Please contact HLA Customer Service at if you have any questions.Director of HLA LaboratoryDr Andrew Ugarte, PhD TESTING PERFORMED AT [facility]. ORIGINAL REPORT ON FILE IN LAB CONTAINS ADDITIONAL TEST SITE INFORMATION. Platelets bldOrdered By: Dr. Lanier on 08-28-2022 Platelets (Bld) [#/Vol] 244 10*3/uL 150-450 [facility] Serum or plasma C reactive p rotein measurement (mass/volume)Ordered By: Dr. Lanier on 08-28-2022 CRP [Mass/Vol] mg/L 0.0-3.0 [facility] Comment on above: C-Reactive Protein ( CRP) provides useful information for thediagnosis, therapy and monitoring of inflammatory processesand associated diseases. For the evaluation of Relative Riskfor Cardiovascular Disease, a High Sensitivity CRP (HSCRP)should be ordered. Serum or plasma albumin nicole urement (mass/volume)Ordered By: Dr. Lanier on 08-28-2022 Albumin [Mass/Vol] 3.8 g/dL 3.2-5.0 [facility] Serum or plasma albumin/glob ulin mass ratioOrdered By: Dr. Lanier on 08-28-2022 Albumin/Globulin [Mass ratio] 1.1 {ratio} 0.9-2.4 [facility] Serum or plasma calcium nicole urement (mass/volume)Ordered By: Dr. Lanier on 08-28-2022 Calcium [Mass/Vol] 9.2 mg/dL 8.5-10.1 [facility] Serum or plasma creatinine m easurement (mass/volume)Ordered By: Dr. Lanier on 08-28-2022 Creatinine [Mass/Vol] 0.70 mg/dL 0.55-1.[address] [facility] Comment on above: The validity of the calculated GFR & GFRAA in patients over 70 years has not been determined. Clinical correlation is essential. Serum or plasma urea nitroge n measurement (mass/volume)Ordered By: Dr. Lanier on 08-28-2022 Urea nitrogen [Mass/Vol] 7 mg/dL 7-18 [facility] Thin prep Papanicolaou smear with manual screeningOrdered By: Dr. Lanier on 08-28-2022 Thin prep Papanicolaou smear with manual screening 12 U/L 15-37 [facility] Thin prep Papanicolaou smear with manual screening 5 5-15 [facility] Thin prep Papanicolaou smear with manual screening Negative . [facility] Comment on above: HLA-B*27 [id number] allele interpretation for all loci based on IMGT/HLAdatabase version 3.44This test was developed and its performance characteristicsdetermined by [facility]. It has not been cleared or approvedby the Food and Drug Administration.[facility] Lab CLIA ID Number [id number] test was performed using PCR (Polymerase ChainReaction)/SSOP (Sequence Specific Oligonucleotide Probes)technique. SBT (Sequence Based Typing) and/or SSP(Sequence Specific Primers) may be used as supplementalmethods when necessary. Please contact HLA CustomerService at if you have any questions. Director of HLA Laboratory Dr Andrew Ugarte, PhDPerformed at: 2[facility] - [facility] [id number] [place], [place] [id number] Director: Andrew Ugarte PhD, Phone: [phone] Follow Up (Rheumatology)on 0 08-07-2022 Follow Up (Rheumatology) Orders Systemic lupus erythematosus, unspecified SLE type, unspecified organ involvement status Renew: Hydroxychloroquine Sulfate 200 MG Oral Tablet; Take 1 tablet daily Rx By: Morgan Lanier; Dispense: 90 Days ; #:90 Tablet; Refill: 2;For: Systemic lupus erythematosus, unspecified SLE type, unspecified organ involvement status; ENRIQUE = N; Verified Transmission to [facility]; Last Updated By: [employer]r [employer]; 08/07/2022 3:57:26 PM Renew: Mycophenolate Mofetil 250 MG Oral Capsule; TAKE 1 CAPSULE BY MOUTH TWICE A DAY Rx By: Morgan Lanier; Dispense: 0 Days ; #:180 Capsule; Refill: 2;For: Systemic lupus erythematosus, unspecified SLE type, unspecified organ involvement status; ENRIQUE = N; Verified Transmission to [facility]; Last Updated By: [email or web address]; 08/07/2022 3:57:26 PM Chief Complaint 6 week f/u. C/O pain in both knees and both hands. RW, MA History of Present IllnessShe complains of pain involving the knees, left more than right. The pain tends to affect the posterior aspect of the left knee particularly with full knee flexion or with descending stairs. She also notes pain in her hands has been fairly continuous. She notes feeling better since the topiramate was discontinued and she was placed on Depakote. She had upper endoscopy that is consistent with Reyez's esophagus. She has noted recurrent mouth sores. Examination shows a confluent area of petechiae on the left buccal mucosa. She has a Torti bulbous. The risks and fingers are not swollen. There is good passive range of motion of the shoulders and hips. There is tenderness in the posterior lateral aspect of the knees, left more than right with full range of motion of both knees Laboratory (06/28/2022) ASHLEY negative, CRP <2.90, WBC 3.9, hemoglobin 12.0, hematocrit 36.5, MCV 96.3, MCHC 32.9, platelets 219, BUN 13, creatinine 0.69, glucose 86, AST 18, ALT 20, alkaline phosphatase 45, lipase 187, urinalysis shows no protein glucose or ketones leukocyte esterases 25,, spot urine protein 8.4. Right paracentral L3/L4 disc herniation, right L3 nerve root impingement, migraine headaches, gastroesophageal reflux disorder, Reyez's esophagus, systemic lupus erythematosus. She has pain in the shoulders and knees with negative ASHLEY question mechanical arthritis related to osteoarthritis. She is to continue hydroxychloroquine 200 mg daily and mycophenolate 250 mg twice daily. She is to have laboratory for follow-up of mycophenolate. She is to have laboratory for HLA-B27 and HLA B52 to evaluate for psoriatic arthritis and Behcet's syndrome respectively. She is to return at the next available office appointment. Active Problems Problems Arthritis (716.90) (M19.90) Back pain (724.5) (M54.9) Dizziness (780.4) (R42) GERD without esophagitis (530.81) (K21.9) Intractable migraine with aura with status migrainosus (346.03) (G43.111) Migraine with aura and without status migrainosus, not intractable (346.00) (G43.109) Numbness and tingling in both hands (782.0) (R20.0,R20.2) Numbness of tongue (782.0) (R20.0) Pain in both lower extremities (729.5) (M79.604,M79.605) Paresthesia of upper and lower extremities of both sides (782.0) (R20.2) Systemic lupus erythematosus, unspecified SLE type, unspecified organ involvement status (710.0) (M32.9) Tension headache (307.81) (G44.209) Visual disturbance (368.9) (H53.9) Family History Mother Family history of chronic myeloid leukemia (V16.6) (Z80.6) Father Family history of cardiac disorder (V17.49) (Z82.49) Family history of hypertension (V17.49) (Z82.49) Family history of hypothyroidism (V18.19) (Z83.49) Social History Problems Never smoker No illicit drug use Occasional alcohol use Allergies NoKnown No Known Allergies Recorded By: Renee Tillman; 04/07/2020 3:30:46 PM Current Meds Medication NameInstruction CeleBREX 100 MG Oral Capsule Cymbalta 30 MG Oral Capsule Delayed Release ParticlesTAKE 1 CAPSULE TWICE DAILY. Depakote 250 MG Oral Tablet Delayed Release Hydroxychloroquine Sulfate 200 MG Oral TabletTake 1 tablet daily Levothyroxine Sodium 75 MCG Oral TabletTAKE 1 TABLET DAILY DIRECTED. Mycophenolate Mofetil 250 MG Oral CapsuleTAKE 1 CAPSULE BY MOUTH TWICE A DAY Pantoprazole Sodium 20 MG Oral Tablet Delayed ReleaseTAKE 1 TABLET BY MOUTH EVERY DAY Potassium Chloride ER 10 MEQ Oral Capsule Extended Release Rizatriptan Benzoate 10 MG Oral Tabletas needed Zofran 4 MG TABSas needed Vitals Vital Signs Recorded: [id number] 03:02PM Gmmtasnbiqf71.5 F Heart Rate81 Hxphnxti491 Htpuqcihk14 Height5 ft 3 in Ilccni643 lb BMI Yqhigqkhfn37.32 kg/m2 BSA Calculated1.59 Tobacco Useb) No Falls Screening (Age 18+)a) No falls within the last year Pain Scale4 Signatures Electronically signed by : Morgan Lanier MD; Aug 07 2022 6:57PM EST (Author) Normal [employer] Tobacco Screening.on 023 Fall risk assessment a) No falls within the last year [facility] [employer] Work Phone: Tobacco use status CPHS b) No M [facility] [employer] Work Phone: Culture, urineOrdered By: Sukhjinder Villalobos on 07-14-2022 Bacteria identified Cx Nom (U) Culture exhibits no growth. [facility] Basophil percentageOrdered B y: López Villalobos on 07-12-2022 Basophil percentage 0 SEEN /hpf 0-5 [facility] Bilirubin Test strip Ql (U)O rdered By: López Villalobos on 07-12-2022 Bilirubin Ql (U) Negative Negative [facility] Culture, urineOrdered By: Sukhjinder Villalobos on 07-12-2022 Bacteria identified Cx Nom (U) Culture exhibits no growth. [facility] Ketones Test strip Ql (U)Ord ered By: López Villalobos on 07-12-2022 Ketones Ql (U) Negative Negative [facility] Laboratory - Chemistry and C hemistry - challengeon 07-12-2022 Bilirubin Ql (U) Negative [facility] Glucose Ql (U) Negative [facility] Ketones Ql (U) Negative [facility] pH (U) 8.5 [pH] [facility] Specific gravity (U) [Rel density] <1.005 [facility] Urobilinogen (U) [Mass/Vol] 0.2011590 mg/dL [facility] - Specimen inform ationon 07-12-2022 Clarity (U) Clear [facility] Color (U) Straw [facility] - Urinalysison Nitrite Ql (U) Negative [facility] Protein Ql (U) Negative [facility] Mucus LM Ql (Urine sed)Order ed By: López Villalobos on 07-12-2022 Mucus Ql (Urine sed) 0 SEEN /hpf [facility] Nitrite Test strip Ql (U)Ord ered By: López Villalobos on 07-12-2022 Nitrite Ql (U) Negative Negative [facility] No Panel Informationon 07-[address] [facility] Urine Non-Hemolyzed Blood Negative [facility] Protein Test strip Ql (U)Ord ered By: López Villalobos on 07-12-2022 Protein Ql (U) Negative Negative [facility] Squamous epithelial cells de tection in urine sediment by light microscopyOrdered By: López Villalobos on 07-12-2022 Epithelial cells.squamous LM Ql (Urine sed) 0-5 SEEN /hpf 5-10 [facility] Urine blood detectionOrdered By: López Villalobos on 07-12-2022 RBC Ql (U) Negative Negative [facility] RBC Ql (U) 0 SEEN /hpf 0-5 [facility] Urine clarityOrdered By: Franklin Villalobos on 07-12-2022 Clarity (U) Sl. Cloudy Clear [facility] Urine color determinationOrd ered By: López Villalobos on 07-12-2022 Color (U) Yellow Yellow [facility] Urine glucose detectionOrder ed By: López Villalobos on 07-12-2022 Glucose Ql (U) Normal mg/dl Normal [facility] Urine leukocyte esterase det ection by dipstickOrdered By: López Villalobos on 07-12-2022 Leukocyte esterase Test strip Ql (U) Negative Negative [facility] Urine pHOrdered By: López atkins on 07-12-2022 pH (U) 7.0 [pH] 5.0 - 8.0 [facility] Urine sediment bacteria coun t by microscopy (number/high power field)Ordered By: López Villalobos on 07-12-2022 Bacteria LM.HPF (Urine sed) [#/Area] 0 /[HPF] None Seen [facility] Urine specific gravity measu rementOrdered By: López Villalobos on 07-12-2022 Specific gravity (U) [Rel density] 1.005 1.002-1.[address] [facility] Urobilinogen Auto test strip Ql (U)Ordered By: López Villalobos on 07-12-2022 Urobilinogen Ql (U) Normal mg/dl Normal [facility] Absolute lymphocyte countOrd ered By: Dr. Lanier on 06-28-2022 Lymphocytes Auto (Unsp spec) [#/Vol] 1.68 10*3/uL 0.83-4.51 [facility] Basophil percentageOrdered B y: Dr. Lanier on 06-28-2022 Basophils/100 WBC (Bld) 1.0 % 0-1 [facility] Bilirubin [Mass/Vol] 0.60 mg/dL 0.20-1.00 [facility] Comment on above: For patients on eltr ombopag therapy, use of Dimension Polson TBIL is not recommended. Chloride [Moles/Vol] 109 mmol/L 98-107 [facility] Eosinophils/100 WBC (Bld) 1.8 % 0-5 [facility] Glucose [Mass/Vol] 86 mg/dL 74-106 [facility] Neutrophils (Bld) [#/Vol] 1.8 10*3/uL 2.0-7.7 [facility] Neutrophils/100 WBC (Bld) 46.6 % 47-70 [facility] Potassium [Moles/Vol] 3.7 mmol/L 3.5-5.[address] [facility] Protein [Mass/Vol] 7.4 g/dL 6.4-8.2 [facility] Sodium [Moles/Vol] 140 mmol/L 136-145 [facility] WBC (Bld) [#/Vol] 3.9 10*3/uL 4.4-11.0 [facility] Bilirubin Test strip Ql (U)O rdered By: Dr. Lanier on 06-28-2022 Bilirubin Ql (U) Negative Negative [facility] Blood erythrocytes count (nu mber/volume)Ordered By: Dr. Lanier on 06-28-2022 RBC (Bld) [#/Vol] 3.79 10*6/uL 4.2-5.4 [facility] Blood hemoglobin measurement (mass/volume)Ordered By: Dr. Lanier on 06-28-2022 Hemoglobin (Bld) [Mass/Vol] 12.0 g/dL 12.0-15.0 [facility] Blood lymphocytes/100 leukoc ytesOrdered By: Dr. Lanier on 06-28-2022 Lymphocytes/100 WBC (Bld) 42.7 % 19-41 [facility] Blood monocytes/100 leukocyt esOrdered By: Dr. Lanier on 06-28-2022 Monocytes/100 WBC (Bld) 7.9 % 0-10 [facility] Blood platelet mean volumeOr dered By: Dr. Lanier on 06-28-2022 Platelet mean volume (Bld) [Entitic vol] 12.0 fL 6.2-12.0 [facility] Determination of erythrocyte mean corpuscular volume (MCV)Ordered By: Dr. Lanier on 06-28-2022 MCV (RBC) [Entitic vol] 96.3 fL 81-99 [facility] Hematocrit Auto (Bld) [Volum e fraction]Ordered By: Dr. Lanier on 06-28-2022 Hematocrit (Bld) [Volume fraction] 36.5 % 37-47 [facility] Ketones Test strip Ql (U)Ord ered By: Dr. Lanier on 06-28-2022 Ketones Ql (U) Negative Negative [facility] Laboratory - Chemistry and C hemistry - challengeOrdered By: Dr. Lanier on 06-28-2022 ALP [Catalytic activity/Vol] 45 U/L 45-117 [facility] ALT [Catalytic activity/Vol] 20 U/L 13-56 [facility] CO2 [Moles/Vol] 29.0 mmol/L 21.0-32.0 [facility] Globulin (S) [Mass/Vol] 3.4 g/dL 2.2-4.2 [facility] Lipase [Catalytic activity/Vol] 187 U/L 73-393 [facility] Urea nitrogen/Creatinine [Mass ratio] 18.8 mg/mg 10-20 [facility] - Hematology and Cell countsOrdered By: Dr. Lanier on 06-28-2022 Erythrocyte distribution width (RBC) [Entitic vol] 46.2 fL 35.1-43.9 [facility] Erythrocyte distribution width (RBC) [Ratio] 13.0 % 11.6-14.6 [facility] Immature granulocytes/100 WBC (Bld) 0.000 % 0.0-0.9 [facility] Comment on above: IG% - Immature Granu locytes (promyelocytes, myelocytes and metamyelocytes) > 1% indicates that a LEFT SHIFT is Present. MCH (RBC) [Entitic mass] 31.7 pg 27.0-32.0 [facility] Nucleated RBC/100 WBC (Bld) [Ratio] 0 % 0-5 [facility] MCHC Auto (RBC) [Mass/Vol]Or dered By: Dr. Lanier on 06-28-2022 MCHC (RBC) [Mass/Vol] 32.9 g/dL 32-[address] [facility] Nitrite Test strip Ql (U)Ord ered By: Dr. Lanier on 06-28-2022 Nitrite Ql (U) Negative Negative [facility] No Panel InformationOrdered By: Dr. Lanier on 06-28-2022 Anti-Cardiolipin IgM Antibody < 9 MPL U/mL 0-12 [facility] Comment on above: Negative: <13 Indete rminate: 13 - 20 Low-Med Positive: >20 - 80 High Positive: >80 Anti-Nuclear Antibody Screen Negative Negative [facility] Comment on above: Performed at: [address] [id number] Director: Espinoza Bhatia PhD, Phone: [phone] Estimated GFR (MDRD) Amer 113 mL/min >60 [facility] Comment on above: GFR Calc Estimated GFR (MDRD) Non-Af Amer 93 mL/min >60 [facility] Comment on above: Non- GFR Calc Miscellaneous Test See comment [facility] Comment on above: TEST RESULTS LIMITSA NCA ProfileAnti-MPO Antibodies <0.2 units 0.0-0.9Anti-PR3 Antibodies <0.2 units 0.0-0.9Cytoplasmic (C-ANCA) <1:20 titer Neg:<1:20Perinuclear (P-ANCA) <1:20 titer Neg:<1:20The presence of positive fluorescence exhibiting P-ANCA or C-ANCA patterns alone is not specific for the diagnosis of Rick's Granulomatosis (WG) or microscopic polyangiitis. Decisions about treatment should not be based solely on ANCA IFA results. The International ANCA Group Consensus recommends follow up testing of positive sera with both RI-3 and MPO-ANCA enzyme immunoassays. As many as 5% serum samples are positive only by EIA.Ref. AM J Clin Pathol 1999;111:507-513.Atypical pANCA <1:20 titer Neg:<1:20The atypical pANCA pattern has been observed in a significant percentage of patients with ulcerative colitis, primary sclerosing cholangitis and autoimmune hepatitis. TESTING PERFORMED AT [facility]. ORIGINAL REPORT ON FILE IN LAB CONTAINS ADDITIONAL TEST SITE INFORMATION. STAFF MIDWIFE Antibody 0.3 AI 0.0-0.9 [facility] Serum Cryoglobulins Comment None detected [facility] Comment on above: None Detected at 72 hoursThis test was developed and its performance characteristicsdetermined by [employer]. It has not been cleared orapproved by the Food and Drug Administration. Platelets bldOrdered By: Dr. Lanier on 06-28-2022 Platelets (Bld) [#/Vol] 219 10*3/uL 150-450 [facility] Protein Test strip Ql (U)Ord ered By: Dr. Lanier on 06-28-2022 Protein Ql (U) Negative Negative [facility] Serum Guerra extractable nucl ear antibody detectionOrdered By: Dr. Lanier on 06-28-2022 Guerra extractable nuclear Ab Ql (S) <0.2 AI 0.0-0.9 [facility] Serum beta 2 glycoprotein 1 IgA antibody detectionOrdered By: Dr. Lanier on 06-28-2022 Beta 2 glycoprotein 1 IgA Ql (S) <9 0-25 [facility] Comment on above: Result Units: GPI Ig A unitsThe reference interval reflects a 3SD or 99th percentileinterval, which is thought to represent a potentiallyclinically significant result in accordance with theInternational Consensus Statement on the classificationcriteria for definitive antiphospholipid syndrome (APS). JThromb Haem 2006;4:295-306. Serum beta 2 glycoprotein 1 IgG antibody detectionOrdered By: Dr. Lanier on 06-28-2022 Beta 2 glycoprotein 1 IgG Ql (S) <9 0-20 [facility] Comment on above: Result Units: GPI Ig G unitsThe reference interval reflects a 3SD or 99th percentileinterval, which is thought to represent a potentiallyclinically significant result in accordance with theInternational Consensus Statement on the classificationcriteria for definitive antiphospholipid syndrome (APS). JThromb Haem 2006;4:295-306. Serum beta 2 glycoprotein 1 IgM antibody detectionOrdered By: Dr. Lanier on 06-28-2022 Beta 2 glycoprotein 1 IgM Ql (S) <9 0-32 [facility] Comment on above: Result Units: GPI Ig M unitsThe reference interval reflects a 3SD or 99th percentileinterval, which is thought to represent a potentiallyclinically significant result in accordance with theInternational Consensus Statement on the classificationcriteria for definitive antiphospholipid syndrome (APS). JThromb Haem 2006;4:295-306. Serum cardiolipin IgG antibo dy assay by immunoassay (units/volume)Ordered By: Dr. Lanier on 06-28-2022 Cardiolipin IgG IA Qn (S) < 9 GPL U/mL 0-14 [facility] Comment on above: Negative: <15 Indete rminate: 15 - 20 Low-Med Positive: >20 - 80 High Positive: >80 Serum or plasma C reactive p rotein measurement (mass/volume)Ordered By: Dr. Lanier on 06-28-2022 CRP [Mass/Vol] mg/L 0.0-3.0 [facility] Comment on above: C-Reactive Protein ( CRP) provides useful information for thediagnosis, therapy and monitoring of inflammatory processesand associated diseases. For the evaluation of Relative Riskfor Cardiovascular Disease, a High Sensitivity CRP (HSCRP)should be ordered. Serum or plasma albumin nicole urement (mass/volume)Ordered By: Dr. Lanier on 06-28-2022 Albumin [Mass/Vol] 4.0 g/dL 3.2-5.0 [facility] Serum or plasma albumin/glob ulin mass ratioOrdered By: Dr. Lanier on 06-28-2022 Albumin/Globulin [Mass ratio] 1.2 {ratio} 0.9-2.4 [facility] Serum or plasma angiotensin converting enzyme measurement (enzymatic activity/volume)Ordered By: Dr. Lanier on 06-28-2022 Angiotensin converting enzyme [Catalytic activity/Vol] 48 U/L 14- [facility] Comment on above: Performed at: [address] [id number] Director: Espinoza Bhatia PhD, Phone: [phone] at: [facility] Lab[address] [id number] Director: Susan Del Valle MD, Phone: [phone] Serum or plasma calcium nicole urement (mass/volume)Ordered By: Dr. Lanier on 06-28-2022 Calcium [Mass/Vol] 8.9 mg/dL 8.5-10.1 [facility] Serum or plasma cardiolipin IgA antibody assay (units/volume)Ordered By: Dr. Lanier on 06-28-2022 Cardiolipin IgA Qn < 9 APL U/mL 0-11 [facility] Comment on above: Negative: <12 Indete rminate: 12 - 20 Low-Med Positive: >20 - 80 High Positive: >80 Serum or plasma complement C 3 measurement (mass/volume)Ordered By: Dr. Lanier on 06-28-2022 Complement C3 [Mass/Vol] 86 mg/dL 82-167 [facility] Serum or plasma complement C 4 measurement (mass/volume)Ordered By: Dr. Lanier on 06-28-2022 Complement C4 [Mass/Vol] 19 mg/dL 12-38 [facility] Serum or plasma creatinine m easurement (mass/volume)Ordered By: Dr. Lanier on 06-28-2022 Creatinine [Mass/Vol] 0.69 mg/dL 0.55-1.[address] [facility] Comment on above: The validity of the calculated GFR & GFRAA in patients over 70 years has not been determined. Clinical correlation is essential. Serum or plasma urea nitroge n measurement (mass/volume)Ordered By: Dr. Lanier on 06-28-2022 Urea nitrogen [Mass/Vol] 13 mg/dL 7-18 [facility] Thin prep Papanicolaou smear with manual screeningOrdered By: Dr. Lanier on 06-28-2022 Thin prep Papanicolaou smear with manual screening 18 U/L 15-37 [facility] Thin prep Papanicolaou smear with manual screening 2 5-15 [facility] Urine blood detectionOrdered By: Dr. Lanier on 06-28-2022 RBC Ql (U) Negative Negative [facility] Urine clarityOrdered By: Dr. Lanier on 06-28-2022 Clarity (U) Clear Clear [facility] Urine color determinationOrd ered By: Dr. Lanier on 06-28-2022 Color (U) Yellow Yellow [facility] Urine glucose detectionOrder ed By: Dr. Lanier on 06-28-2022 Glucose Ql (U) Normal mg/dl Normal [facility] Urine leukocyte esterase det ection by dipstickOrdered By: Dr. Lanier on 06-28-2022 Leukocyte esterase Test strip Ql (U) 25 /ul Negative [facility] Urine pHOrdered By: Dr. Wily willingham on 06-28-2022 pH (U) 6.5 [pH] 5.0 - 8.0 [facility] Urine protein measurement (m ass/volume)Ordered By: Dr. Lanier on 06-28-2022 Protein (U) [Mass/Vol] 8.4 mg/dL 0.0-11.8 [facility] Urine specific gravity measu rementOrdered By: Dr. Lanier on 06-28-2022 Specific gravity (U) [Rel density] 1.015 1.002-1.[address] [facility] Urobilinogen Auto test strip Ql (U)Ordered By: Dr. Lanier on 06-28-2022 Urobilinogen Ql (U) Normal mg/dl Normal [facility] Follow Up (Rheumatology)on 0 06-25-2022 Follow Up (Rheumatology) Diagnoses/Problems Assessed Numbness and tingling in both hands (782.0) (R20.0,R20.2) Numbness of tongue (782.0) (R20.0) Systemic lupus erythematosus, unspecified SLE type, unspecified organ involvement status (710.0) (M32.9) Orders Numbness and tingling in both hands Angiotensin Converting Enzyme, Serum; Status:Active; Requested for:25Jun2022; Perform:Lab Services - Lab To Draw (Blood Test); Due:23Sep2022;Ordered; For:Numbness and tingling in both hands; Ordered By:Morgan Lanier; Anti Nuclear Antibody Panel (with automatic JAYLA Panel); Status:Active; Requested for:25Jun2022; Perform:Lab Services - Lab To Draw (Blood Test); Due:23Sep2022;Ordered; For:Numbness and tingling in both hands; Ordered By:Morgan Lanier; C3 Complement, Serum; Status:Active; Requested for:25Jun2022; Perform:Lab Services - Lab To Draw (Blood Test); Due:23Sep2022;Ordered; For:Numbness and tingling in both hands; Ordered By:Morgan Lanier; C4 Complement, Serum; Status:Active; Requested for:25Jun2022; Perform:Lab Services - Lab To Draw (Blood Test); Due:23Sep2022;Ordered; For:Numbness and tingling in both hands; Ordered By:Morgan Lanier; Cryoglobulin Screen W/RF; Status:Active; Requested for:25Jun2022; Perform:Lab Services - Lab To Draw (Blood Test); Due:23Sep2022;Ordered; For:Numbness and tingling in both hands; Ordered By:Morgan Lanier; Lipase, Serum; Status:Active; Requested for:25Jun2022; Perform:Lab Services - Lab To Draw (Blood Test); Due:23Sep2022;Ordered; For:Numbness and tingling in both hands; Ordered By:Morgan Lanier; MPO, PR3 WITH REFLEX TO ANCA; Status:Active; Requested for:25Jun2022; Perform:Lab Services - Lab To Draw (Blood Test); Due:23Sep2022;Ordered; For:Numbness and tingling in both hands; Ordered By:Morgan Lanier; Total Protein, Urine Spot; Status:Active; Requested for:25Jun2022; Perform:Lab Services - Lab To Draw (Non-Blood Test); Due:23Sep2022;Ordered; For:Numbness and tingling in both hands; Ordered By:Morgan Lanier; Urinalysis; Status:Active; Requested for:25Jun2022; Perform:Lab Services - Lab To Draw (Non-Blood Test); Due:23Sep2022;Ordered; For:Numbness and tingling in both hands; Ordered By:Morgan Lanier; Numbness of tongue Anticardiolipin Ab; Status:Active; Requested for:25Jun2022; Perform:Lab Services - Lab To Draw (Blood Test); Due:23Sep2022;Ordered; For:Numbness of tongue; Ordered By:Morgan Lanier; Beta 2 Glycoprotein Ab; Status:Active; Requested for:25Jun2022; Perform:Lab Services - Lab To Draw (Blood Test); Due:23Sep2022;Ordered; For:Numbness of tongue; Ordered By:Morgan Lanier; Systemic lupus erythematosus, unspecified SLE type, unspecified organ involvement status Start: Hydroxychloroquine Sulfate 200 MG Oral Tablet; Take 1 tablet daily Rx By: Morgan Lanier; Dispense: 90 Days ; #:90 Tablet; Refill: 2;For: Systemic lupus erythematosus, unspecified SLE type, unspecified organ involvement status; ENRIQUE = N; Verified Transmission to [facility]; Last Updated By: Elier Strange; 06/25/2022 5:25:22 PM Adult Risk Screening There are no spiritual/cultural practices/values/needs that are important to know Initial Fall Risk Screening: CHASITY has not fallen in the last 6 months. Pain Scale: On a scale of 0 to 10, the patient rates the pain at 4. Please identify location of pain: face, neck, hands and knees. Living Will. Living Will: No living will on file. Healthcare POA: No healthcare proxy on file. Declaration of Mental Health Treatment: No mental health treatment on file. Tobacco Screening: CHASITY does not use tobacco. Domestic Violence Screen: Does not feel threatened or abused physically, emotionally or sexually. Do you feel UNSAFE? The patient feels safe in the home. Depression/Suicide Screening: During the past 2 weeks, the patient has not felt down, depressed or hopeless. During the past 2 weeks, the patient has not felt little interest or pleasure in doing things. She does not have a risk of suicide. She has not had thoughts of harming others. Single alcohol screening question: In the past year the patient has had 5 or more drinks (men) or 4 or more drinks (women)? 0 time(s). Single substance abuse screening question: In the past year the patient has used a recreational drug or used a prescription drug for non-medical reasons? 0 time(s). Nutrition Screening: In the past month, there was not a day when I or anyone in my family went hungry because there was not enough food. Food Insecurity: 1. Within the past 12 months, you worried that your food would run out before you got money to buy more: No 2. Within the past 12 months, the food you bought just didn't last and you didn't have money to get more: No History of Present Illness She presents for a sooner appointment because of numbness and tingling and cold sensation in her hands. She has noted pain in her neck with difficulty swallowing. She has had significant mouth and eye dryness. The dryness is only temporary improved with drinking water or (more content not included)... Normal [employer] Tobacco Screening.on 023 Fall risk assessment a) No falls within the last year MG[facility] [address] [facility] Work Phone: Tobacco use status CPHS b) No M G-[facility] [address] [facility] Work Phone: Basophil percentageOrdered B y: Dr. Marsh on 05-31-2022 Basophil percentage See comment [facility] Comment on above: TEST RESULTS LIMITS Testosterone, Free/Tot EquilibTestosterone 28 ng/dL 4-50 TESTING PERFORMED AT [facility]. ORIGINAL REPORT ON FILE IN LAB CONTAINS ADDITIONAL TEST SITE INFORMATION. WBC (Bld) [#/Vol] 3.8 10*3/uL 4.4-11.0 [facility] Blood erythrocytes count (nu mber/volume)Ordered By: Dr. Marsh on 05-31-2022 RBC (Bld) [#/Vol] 3.86 10*6/uL 4.2-5.4 [facility] Blood hemoglobin measurement (mass/volume)Ordered By: Dr. Marsh on 05-31-2022 Hemoglobin (Bld) [Mass/Vol] 11.9 g/dL 12.0-15.0 [facility] Blood platelet mean volumeOr dered By: Dr. Marsh on 05-31-2022 Platelet mean volume (Bld) [Entitic vol] 12.0 fL 6.2-12.0 [facility] Determination of erythrocyte mean corpuscular volume (MCV)Ordered By: Dr. Marsh on 05-31-2022 MCV (RBC) [Entitic vol] 98.4 fL 81-99 [facility] Free testosterone percentage Ordered By: Dr. Marsh on 05-31-2022 Testosterone Free/Testosterone.total [Mass fraction] Not Reportable [facility] Hematocrit Auto (Bld) [Volum e fraction]Ordered By: Dr. Marsh on 05-31-2022 Hematocrit (Bld) [Volume fraction] 38.0 % 37-47 [facility] Iron measurement (mass/mass) Ordered By: Dr. Marsh on 05-31-2022 Iron (Unsp spec) [Mass/Mass] 93 ug/dL 50-170 [facility] Laboratory - Chemistry and C hemistry - challengeOrdered By: Dr. Marsh on 05-31-2022 Cobalamin (Vitamin B12) [Mass/Vol] 799 pg/mL 211-911 [facility] - Hematology and Cell countsOrdered By: Dr. Marsh on 05-31-2022 Erythrocyte distribution width (RBC) [Entitic vol] 48.9 fL 35.1-43.9 [facility] Erythrocyte distribution width (RBC) [Ratio] 13.5 % 11.6-14.6 [facility] MCH (RBC) [Entitic mass] 30.8 pg 27.0-32.0 [facility] MCHC Auto (RBC) [Mass/Vol]Or dered By: Dr. Marsh on 05-31-2022 MCHC (RBC) [Mass/Vol] 31.3 g/dL 32-[address] [facility] No Panel InformationOrdered By: Dr. Marsh on 05-31-[address] [facility] Comment on above: TEST RESULTS LIMITS Androstenedione LCMS A, 74 ng/dL 41-262 _ TESTING PERFORMED AT [facility]. ORIGINAL REPORT ON FILE IN LAB CONTAINS ADDITIONAL TEST SITE INFORMATION. Dehydroepiandrosterone Sulfate See comment [facility] Comment on above: TEST RESULTS LIMITSD HEA-Sulfate 97.6 ug/dL 29.4-220.5 [facility] ORIGINAL REPORT ON FILE IN LAB CONTAINS ADDITIONAL TEST SITE INFORMATION. Total Iron Binding Capacity 310 ug/dL 250-450 [facility] Vitamin D 25-Hydroxy 99.8 ng/mL [facility] Comment on above: Vitamin D 25(OH) Sta tus Range Deficiency <20 ng/mL (50nmol/L) Insufficiency 20 - 30 ng/mL (50 - 75 nmol/L) Sufficiency 30 - 100 ng/mL (75 - 250 nmol/L) Toxicity >100 ng/mL (>250 nmol/L) Platelets bldOrdered By: Dr. Marsh on 05-31-2022 Platelets (Bld) [#/Vol] 245 10*3/uL 150-450 [facility] Serum or plasma calcitriol m easurement (mass/volume)Ordered By: Dr. Marsh on 05-31-2022 1,25-dihydroxyvitamin D3 [Mass/Vol] 58.0 pg/mL 24.8-81.5 [facility] Comment on above: Performed at: [address] [id number] Director: Susan Del Valle MD, Phone: [phone] Serum or plasma ferritin enid surement (mass/volume)Ordered By: Dr. Marsh on 05-31-2022 Ferritin [Mass/Vol] 59 ng/mL 8-252 [facility] Serum or plasma folate measu rement (mass/volume)Ordered By: Dr. Marsh on 05-31-2022 Folate [Mass/Vol] 5.20 ng/mL 3.1-55.4 [facility] Serum or plasma sex hormone binding globulin measurement (moles/volume)Ordered By: Dr. Marsh on 05-31-2022 Sex hormone binding globulin [Moles/Vol] See comment [facility] Comment on above: TEST RESULT LIMITSSe x Horm Binding Glob, SerumSex Horm Binding Glob,Serum 165.0 High nmol/L 17.3-125.0 TESTING PERFORMED AT [facility]. ORIGINAL REPORT ON FILE IN LAB CONTAINS ADDITIONAL TEST SITE INFORMATION. Serum or plasma testosterone free measurement (mass/volume)Ordered By: Dr. Marsh on 05-31-2022 Testosterone Free [Mass/Vol] See comment [facility] Comment on above: TEST RESULTS LIMITS Specimen Status Report AbnormalDuplicate determinations did not agree. Specimen quantityinsufficient to repeat. __ TESTING PERFORMED AT [facility]. ORIGINAL REPORT ON FILE IN LAB CONTAINS ADDITIONAL TEST SITE INFORMATION. Serum or plasma zinc measure ment (mass/volume)Ordered By: Dr. Marsh on 05-31-2022 Zinc [Mass/Vol] See comment [facility] Comment on above: TEST RESULTS LIMITS Zinc, Plasma or Serum A, 68 ug/dL 44-115 Detection Limit = 5 TESTING PERFORMED AT [facility]. ORIGINAL REPORT ON FILE IN LAB CONTAINS ADDITIONAL TEST SITE INFORMATION. Absolute lymphocyte countOrd ered By: Dr. Wu on 05-07-2022 Lymphocytes Auto (Unsp spec) [#/Vol] 1.26 10*3/uL 0.83-4.51 [facility] Basophil percentageOrdered B y: Dr. Wu on 05-07-2022 Basophils/100 WBC (Bld) 1.2 % 0-1 [facility] Eosinophils/100 WBC (Bld) 1.2 % 0-5 [facility] Neutrophils (Bld) [#/Vol] 2.7 10*3/uL 2.0-7.7 [facility] Neutrophils/100 WBC (Bld) 61.3 % 47-70 [facility] WBC (Bld) [#/Vol] 4.3 10*3/uL 4.4-11.0 [facility] Bilirubin [Mass/Vol] 0.70 mg/dL 0.20-1.00 [facility] Comment on above: For patients on eltr ombopag therapy, use of Dimension Polson TBIL is not recommended. Chloride [Moles/Vol] 106 mmol/L 98-107 [facility] Glucose [Mass/Vol] 87 mg/dL 74-106 [facility] Potassium [Moles/Vol] 3.6 mmol/L 3.5-5.[address] [facility] Protein [Mass/Vol] 7.2 g/dL 6.4-8.2 [facility] Sodium [Moles/Vol] 138 mmol/L 136-145 [facility] Blood erythrocytes count (nu mber/volume)Ordered By: Dr. Wu on 05-07-2022 RBC (Bld) [#/Vol] 3.94 10*6/uL 4.2-5.4 [facility] Blood hemoglobin measurement (mass/volume)Ordered By: Dr. Wu on 05-07-2022 Hemoglobin (Bld) [Mass/Vol] 12.2 g/dL 12.0-15.0 [facility] Blood lymphocytes/100 leukoc ytesOrdered By: Dr. Wu on 05-07-2022 Lymphocytes/100 WBC (Bld) 29.0 % 19-41 [facility] Blood monocytes/100 leukocyt esOrdered By: Dr. Wu on 05-07-2022 Monocytes/100 WBC (Bld) 7.1 % 0-10 [facility] Blood platelet mean volumeOr dered By: Dr. Wu on 05-07-2022 Platelet mean volume (Bld) [Entitic vol] 11.9 fL 6.2-12.0 [facility] Determination of erythrocyte mean corpuscular volume (MCV)Ordered By: Dr. Wu on 05-07-2022 MCV (RBC) [Entitic vol] 94.2 fL 81-99 [facility] Hematocrit Auto (Bld) [Volum e fraction]Ordered By: Dr. Wu on 05-07-2022 Hematocrit (Bld) [Volume fraction] 37.1 % 37-47 [facility] - Chemistry and C hemistry - challengeOrdered By: Dr. Wu on 05-07-2022 ALP [Catalytic activity/Vol] 41 U/L 45-117 [facility] ALT [Catalytic activity/Vol] 17 U/L 13-56 [facility] CO2 [Moles/Vol] 24.0 mmol/L 21.0-32.0 [facility] Globulin (S) [Mass/Vol] 3.3 g/dL 2.2-4.2 [facility] Urea nitrogen/Creatinine [Mass ratio] 15.1 mg/mg 10-20 [facility] - Hematology and Cell countsOrdered By: Dr. Wu on 05-07-2022 Erythrocyte distribution width (RBC) [Entitic vol] 46.2 fL 35.1-43.9 [facility] Erythrocyte distribution width (RBC) [Ratio] 13.4 % 11.6-14.6 [facility] Immature granulocytes/100 WBC (Bld) 0.200 % 0.0-0.9 [facility] Comment on above: IG% - Immature Granu locytes (promyelocytes, myelocytes and metamyelocytes) > 1% indicates that a LEFT SHIFT is Present. MCH (RBC) [Entitic mass] 31.0 pg 27.0-32.0 [facility] Nucleated RBC/100 WBC (Bld) [Ratio] 0 % 0-5 [facility] MCHC Auto (RBC) [Mass/Vol]Or dered By: Dr. Wu on 05-07-2022 MCHC (RBC) [Mass/Vol] 32.9 g/dL 32-[address] [facility] No Panel InformationOrdered By: Dr. Wu on 05-07-2022 Estimated GFR (MDRD) Amer 118 mL/min >60 [facility] Comment on above: GFR Calc Estimated GFR (MDRD) Non-Af Amer 98 mL/min >60 [facility] Comment on above: Non- GFR Calc Thyroid Stimulating Hormone (TSH) 3.14 uIU/mL 0.358-3.74 [facility] Platelets bldOrdered By: Dr. Wu on 05-07-2022 Platelets (Bld) [#/Vol] 236 10*3/uL 150-450 [facility] Serum DNA double strand anti body assay (units/volume)Ordered By: Dr. Wu on 05-07-2022 DNA double strand Ab Qn (S) [IU]/mL 0-9 [facility] Comment on above: Negative <5 Equivoca l 5 - 9 Positive >9Performed at: [facility] [address] Director: Espinoza Bhatia PhD, Phone: [phone] Serum or plasma C reactive p rotein measurement (mass/volume)Ordered By: Dr. Wu on 05-07-2022 CRP [Mass/Vol] mg/L 0.0-3.0 [facility] Comment on above: C-Reactive Protein ( CRP) provides useful information for thediagnosis, therapy and monitoring of inflammatory processesand associated diseases. For the evaluation of Relative Riskfor Cardiovascular Disease, a High Sensitivity CRP (HSCRP)should be ordered. Serum or plasma albumin nicole urement (mass/volume)Ordered By: Dr. Wu on 05-07-2022 Albumin [Mass/Vol] 3.9 g/dL 3.2-5.0 [facility] Serum or plasma albumin/glob ulin mass ratioOrdered By: Dr. Wu on 05-07-2022 Albumin/Globulin [Mass ratio] 1.2 {ratio} 0.9-2.4 [facility] Serum or plasma calcium nicole urement (mass/volume)Ordered By: Dr. Wu on 05-07-2022 Calcium [Mass/Vol] 9.0 mg/dL 8.5-10.1 [facility] Serum or plasma complement C 3 measurement (mass/volume)Ordered By: Dr. Wu on 05-07-2022 Complement C3 [Mass/Vol] 83 mg/dL 82-167 [facility] Comment on above: Performed at: [place] [id number] Director: Espinoza Bhatia PhD, Phone: [phone] Serum or plasma complement C 4 measurement (mass/volume)Ordered By: Dr. Wu on 05-07-2022 Complement C4 [Mass/Vol] 21 mg/dL 12-38 [facility] Serum or plasma creatinine m easurement (mass/volume)Ordered By: Dr. Wu on 05-07-2022 Creatinine [Mass/Vol] 0.66 mg/dL 0.55-1.[address] [facility] Comment on above: The validity of the calculated GFR & GFRAA in patients over 70 years has not been determined. Clinical correlation is essential. Serum or plasma urea nitroge n measurement (mass/volume)Ordered By: Dr. Wu on 05-07-2022 Urea nitrogen [Mass/Vol] 10 mg/dL 7-18 [facility] Thin prep Papanicolaou smear with manual screeningOrdered By: Dr. Wu on 05-07-2022 Thin prep Papanicolaou smear with manual screening 13 U/L 15-37 [facility] Thin prep Papanicolaou smear with manual screening 8 5-15 [facility] No Panel InformationOrdered By: Dr. Wu on 03-27-2022 Thyroid Stimulating Hormone (TSH) 0.33 uIU/mL 0.358-3.74 [facility] Absolute lymphocyte countOrd ered By: Dr. Lanier on 02-20-2022 Lymphocytes Auto (Unsp spec) [#/Vol] 1.54 10*3/uL 0.83-4.51 [facility] Basophil percentageOrdered B y: Dr. Lanier on 02-20-2022 Basophils/100 WBC (Bld) 1.4 % 0-1 [facility] Bilirubin [Mass/Vol] 1.10 mg/dL 0.20-1.00 [facility] Comment on above: For patients on eltr ombopag therapy, use of Dimension Polson TBIL is not recommended. Chloride [Moles/Vol] 107 mmol/L 98-107 [facility] Eosinophils/100 WBC (Bld) 2.6 % 0-5 [facility] Glucose [Mass/Vol] 97 mg/dL 74-106 [facility] Neutrophils (Bld) [#/Vol] 1.5 10*3/uL 2.0-7.7 [facility] Neutrophils/100 WBC (Bld) 43.3 % 47-70 [facility] Potassium [Moles/Vol] 3.5 mmol/L 3.5-5.[address] [facility] Protein [Mass/Vol] 7.5 g/dL 6.4-8.2 [facility] Sodium [Moles/Vol] 138 mmol/L 136-145 [facility] WBC (Bld) [#/Vol] 3.5 10*3/uL 4.4-11.0 [facility] Blood erythrocytes count (nu mber/volume)Ordered By: Dr. Lanier on 02-20-2022 RBC (Bld) [#/Vol] 4.11 10*6/uL 4.2-5.4 [facility] Blood hemoglobin measurement (mass/volume)Ordered By: Dr. Lanier on 02-20-2022 Hemoglobin (Bld) [Mass/Vol] 12.8 g/dL 12.0-15.0 [facility] Blood lymphocytes/100 leukoc ytesOrdered By: Dr. Lanier on 02-20-2022 Lymphocytes/100 WBC (Bld) 43.9 % 19-41 [facility] Blood monocytes/100 leukocyt esOrdered By: Dr. Lanier on 02-20-2022 Monocytes/100 WBC (Bld) 8.8 % 0-10 [facility] Blood platelet mean volumeOr dered By: Dr. Lanier on 02-20-2022 Platelet mean volume (Bld) [Entitic vol] 11.6 fL 6.2-12.0 [facility] Determination of erythrocyte mean corpuscular volume (MCV)Ordered By: Dr. Lanier on 02-20-2022 MCV (RBC) [Entitic vol] 92.9 fL 81-99 [facility] Hematocrit Auto (Bld) [Volum e fraction]Ordered By: Dr. Lanier on 02-20-2022 Hematocrit (Bld) [Volume fraction] 38.2 % 37-47 [facility] - Chemistry and C hemistry - challengeOrdered By: Dr. Lanier on 02-20-2022 ALP [Catalytic activity/Vol] 47 U/L 45-117 [facility] ALT [Catalytic activity/Vol] 21 U/L 13-56 [facility] CO2 [Moles/Vol] 24.0 mmol/L 21.0-32.0 [facility] Globulin (S) [Mass/Vol] 3.5 g/dL 2.2-4.2 [facility] Urea nitrogen/Creatinine [Mass ratio] 11.0 mg/mg 10-20 [facility] - Hematology and Cell countsOrdered By: Dr. Lanier on 02-20-2022 Erythrocyte distribution width (RBC) [Entitic vol] 44.5 fL 35.1-43.9 [facility] Erythrocyte distribution width (RBC) [Ratio] 13.1 % 11.6-14.6 [facility] Immature granulocytes/100 WBC (Bld) 0.000 % 0.0-0.9 [facility] Comment on above: IG% - Immature Granu locytes (promyelocytes, myelocytes and metamyelocytes) > 1% indicates that a LEFT SHIFT is Present. MCH (RBC) [Entitic mass] 31.1 pg 27.0-32.0 [facility] Nucleated RBC/100 WBC (Bld) [Ratio] 0 % 0-5 [facility] MCHC Auto (RBC) [Mass/Vol]Or dered By: Dr. Lanier on 02-20-2022 MCHC (RBC) [Mass/Vol] 33.5 g/dL 32-[address] [facility] No Panel InformationOrdered By: Dr. Lanier on 02-20-2022 Estimated GFR (MDRD) Amer 107 mL/min >60 [facility] Comment on above: GFR Calc Estimated GFR (MDRD) Non-Af Amer 88 mL/min >60 [facility] Comment on above: Non- GFR Calc Platelets bldOrdered By: Dr. Lanier on 02-20-2022 Platelets (Bld) [#/Vol] 239 10*3/uL 150-450 [facility] Serum or plasma C reactive p rotein measurement (mass/volume)Ordered By: Dr. Lanier on 02-20-2022 CRP [Mass/Vol] mg/L 0.0-3.0 [facility] Comment on above: C-Reactive Protein ( CRP) provides useful information for thediagnosis, therapy and monitoring of inflammatory processesand associated diseases. For the evaluation of Relative Riskfor Cardiovascular Disease, a High Sensitivity CRP (HSCRP)should be ordered. Serum or plasma albumin nicole urement (mass/volume)Ordered By: Dr. Lanier on 02-20-2022 Albumin [Mass/Vol] 4.0 g/dL 3.2-5.0 [facility] Serum or plasma albumin/glob ulin mass ratioOrdered By: Dr. Lanier on 02-20-2022 Albumin/Globulin [Mass ratio] 1.1 {ratio} 0.9-2.4 [facility] Serum or plasma calcium nicole urement (mass/volume)Ordered By: Dr. Lanier on 02-20-2022 Calcium [Mass/Vol] 9.2 mg/dL 8.5-10.1 [facility] Serum or plasma creatinine m easurement (mass/volume)Ordered By: Dr. Lanier on 02-20-2022 Creatinine [Mass/Vol] 0.73 mg/dL 0.55-1.[address] [facility] Comment on above: The validity of the calculated GFR & GFRAA in patients over 70 years has not been determined. Clinical correlation is essential. Serum or plasma urea nitroge n measurement (mass/volume)Ordered By: Dr. Lanier on 02-20-2022 Urea nitrogen [Mass/Vol] 8 mg/dL 7-18 [facility] Thin prep Papanicolaou smear with manual screeningOrdered By: Dr. Lanier on 02-20-2022 Thin prep Papanicolaou smear with manual screening 14 U/L 15-37 [facility] Thin prep Papanicolaou smear with manual screening 7 5-15 [facility] Basophil percentageon 2021 Chloride [Moles/Vol] 103 mmol/L 98-107 [facility] Work Phone: Glucose [Mass/Vol] 91 mg/dL 74-106 [facility] Work Phone: Potassium [Moles/Vol] 3.5 mmol/L 3.5-5.[address] [facility] Work Phone: Sodium [Moles/Vol] 136 mmol/L 136-145 [facility] Work Phone: Laboratory - Chemistry and C hemistry - challengeon 01-24-2022 CO2 [Moles/Vol] 28.0 mmol/L 21.0-32.0 [facility] Work Phone: Urea nitrogen/Creatinine [Mass ratio] 8.3 mg/mg 10- [facility] Work Phone: No Panel Informationon 01-24 Estimated GFR (MDRD) Amer 132 mL/min >60 [facility] Work Phone: Comment on above: GFR Calc Estimated GFR (MDRD) Non-Af Amer 109 mL/min >60 [facility] Work Phone: Comment on above: Non- GFR Calc Serum or plasma calcium nicole urement (mass/volume)on 01-24-2022 Calcium [Mass/Vol] 9.2 mg/dL 8.5-10.1 [facility] Work Phone: Serum or plasma creatinine m easurement (mass/volume)on 01-24-2022 Creatinine [Mass/Vol] 0.60 mg/dL 0.55-1.[address] [facility] Work Phone: Comment on above: The validity of the calculated GFR & GFRAA in patients over 70 years has not been determined. Clinical correlation is essential. Serum or plasma urea nitroge n measurement (mass/volume)on 01-24-2022 Urea nitrogen [Mass/Vol] 5 mg/dL 7-18 [facility] Work Phone: Thin prep Papanicolaou smear with manual screeningon 01-24-2022 Thin prep Papanicolaou smear with manual screening 5 5-15 [facility] Work Phone: Follow Up (Rheumatology)on Follow Up (Rheumatology) Diagnoses/Problems Assessed Systemic lupus erythematosus, unspecified SLE type, unspecified organ involvement status (710.0) (M32.9) Orders Systemic lupus erythematosus, unspecified SLE type, unspecified organ involvement status Anti-dsDNA (Double Stranded) Antibodies; Status:Active; Requested for:16Jan2022; Perform:Lab Services - Lab To Draw (Blood Test); Due:16Apr2022;Ordered; For:Systemic lupus erythematosus, unspecified SLE type, unspecified organ involvement status; Ordered By:Morgan Lanier; C Reactive Protein, Serum; Status:Active; Requested for:16Jan2022; Perform:Lab Services - Lab To Draw (Blood Test); Due:16Apr2022;Ordered; For:Systemic lupus erythematosus, unspecified SLE type, unspecified organ involvement status; Ordered By:Morgan Lanier; C Reactive Protein, Serum; Status:Discontinued - Order Generated; Requested for:Recurring Schedule: 03/09/2021; 05/04/2021; 06/29/2021; 08/24/2021; 10/19/2021; 12/14/2021; 02/08/2022 ; Perform:Lab Services - Lab To Draw (Blood Test); Due:07Jun2021;Ordered; For:Systemic lupus erythematosus, unspecified SLE type, unspecified organ involvement status; Ordered By:Morgan Lanier; C Reactive Protein, Serum; Status:In Progress - Order Generated; Requested for:Recurring Schedule: 01/16/2022; 03/13/2022; 05/08/2022; 07/03/2022; 08/28/2022; 10/23/2022; 12/18/2022 ; Perform:Lab Services - Lab To Draw (Blood Test); Due:16Apr2022;Ordered; For:Systemic lupus erythematosus, unspecified SLE type, unspecified organ involvement status; Ordered By:Morgan Lanier; C3 Complement, Serum; Status:Active; Requested for:16Jan2022; Perform:Lab Services - Lab To Draw (Blood Test); Due:16Apr2022;Ordered; For:Systemic lupus erythematosus, unspecified SLE type, unspecified organ involvement status; Ordered By:Morgan Lanier; C4 Complement, Serum; Status:Active; Requested for:16Jan2022; Perform:Lab Services - Lab To Draw (Blood Test); Due:16Apr2022;Ordered; For:Systemic lupus erythematosus, unspecified SLE type, unspecified organ involvement status; Ordered By:Morgan Lanier; Complete Blood Count + Differential; Status:Active; Requested for:16Jan2022; Perform:Lab Services - Lab To Draw (Blood Test); Due:16Apr2022;Ordered; For:Systemic lupus erythematosus, unspecified SLE type, unspecified organ involvement status; Ordered By:Morgan Lanier; Complete Blood Count + Differential; Status:Discontinued - Order Generated; Requested for:Recurring Schedule: 03/09/2021; 05/04/2021; 06/29/2021; 08/24/2021; 10/19/2021; 12/14/2021; 02/08/2022 ; Perform:Lab Services - Lab To Draw (Blood Test); Due:07Jun2021;Ordered; For:Systemic lupus erythematosus, unspecified SLE type, unspecified organ involvement status; Ordered By:Morgan Lanier; Complete Blood Count + Differential; Status:In Progress - Order Generated; Requested for:Recurring Schedule: 01/16/2022; 03/13/2022; 05/08/2022; 07/03/2022; 08/28/2022; 10/23/2022; 12/18/2022 ; Perform:Lab Services - Lab To Draw (Blood Test); Due:16Apr2022;Ordered; For:Systemic lupus erythematosus, unspecified SLE type, unspecified organ involvement status; Ordered By:Morgan Lanier; Comprehensive Metabolic Panel; Status:Active; Requested for:16Jan2022; Perform:Lab Services - Lab To Draw (Blood Test); Due:16Apr2022;Ordered; For:Systemic lupus erythematosus, unspecified SLE type, unspecified organ involvement status; Ordered By:Morgan Lanier; Comprehensive Metabolic Panel; Status:Discontinued - Order Generated; Requested for:Recurring Schedule: 03/09/2021; 05/04/2021; 06/29/2021; 08/24/2021; 10/19/2021; 12/14/2021; 02/08/2022 ; Perform:Lab Services - Lab To Draw (Blood Test); Due:07Jun2021;Ordered; For:Systemic lupus erythematosus, unspecified SLE type, unspecified organ involvement status; Ordered By:Morgan Lanier; Comprehensive Metabolic Panel; Status:In Progress - Order Generated; Requested for:Recurring Schedule: 01/16/2022; 03/13/2022; 05/08/2022; 07/03/2022; 08/28/2022; 10/23/2022; 12/18/2022 ; Perform:Lab Services - Lab To Draw (Blood Test); Due:16Apr2022;Ordered; For:Systemic lupus erythematosus, unspecified SLE type, unspecified organ involvement status; Ordered By:Morgan Lanier; Chief Complaint 6 month f/u.C/O pain in low back, both knees and both hands. SHIELA ALFONSO History of Present IllnessShe complains of a mild pain in her hands and knees. She notes that the headache and paresthesia of the tongue and extremities improved with taking topiramate 100 mg twice daily and with starting potassium 4 mild hypokalemia. She noted some increased musculoskeletal pain while off of the mycophenolate to get her COVID vaccinations. The lungs, heart, abdomen, and extremities are benign. The musculoskeletal examination does not show any joint effusions. There is preserved range of motion of the upper and lower extremity joints. There is mild tenderness in the knees. The neurological examination shows muscle strength to be 4?5/5 in the right hip flexor otherwise 5/5 in the lower extremities. Laboratory (12/26/2021) WBC 4.0, hemoglobin 13.1, hematocrit 39.1, MCV (more content not included)... Normal [employer] Tobacco Screening.on 022 Fall risk assessment a) No falls within the last year [facility] [employer] Work Phone: Tobacco use status CPHS b) No M [facility] [employer] Work Phone: Absolute lymphocyte counton 12-26-2021 Lymphocytes Auto (Unsp spec) [#/Vol] 1.74 10*3/uL 0.83-4.51 [facility] Work Phone: Basophil percentageon 2021 Basophils/100 WBC (Bld) 1.5 % 0-1 [facility] Work Phone: Bilirubin [Mass/Vol] 1.10 mg/dL 0.20-1.00 [facility] Work Phone: Comment on above: For patients on eltr ombopag therapy, use of Dimension [place] TBIL is not recommended. Chloride [Moles/Vol] 107 mmol/L 98-107 [facility] Work Phone: Eosinophils/100 WBC (Bld) 3.2 % 0-5 [facility] Work Phone: Glucose [Mass/Vol] 93 mg/dL 74-106 [facility] Work Phone: [phone] Neutrophils (Bld) [#/Vol] 1.8 10*3/uL 2.0-7.7 [facility] Work Phone: [phone] Neutrophils/100 WBC (Bld) 44.5 % 47-70 [facility] Work Phone: Potassium [Moles/Vol] 3.5 mmol/L 3.5-5.[address] [facility] Work Phone: [phone] Protein [Mass/Vol] 7.7 g/dL 6.4-8.2 [facility] Work Phone: [phone] Sodium [Moles/Vol] 139 mmol/L 136-145 [facility] Work Phone: [phone] WBC (Bld) [#/Vol] 4.0 10*3/uL 4.4-11.0 [facility] Work Phone: [phone] Blood erythrocytes count (nu mber/volume)on 12-26-2021 RBC (Bld) [#/Vol] 4.27 10*6/uL 4.2-5.4 [facility] Work Phone: [phone] Blood hemoglobin measurement (mass/volume)on 12-26-2021 Hemoglobin (Bld) [Mass/Vol] 13.1 g/dL 12.0-15.0 [facility] Work Phone: Blood lymphocytes/100 leukoc yteson 12-26-2021 Lymphocytes/100 WBC (Bld) 43.2 % 19-41 [facility] Work Phone: Blood monocytes/100 leukocyt eson 12-26-2021 Monocytes/100 WBC (Bld) 7.4 % 0-10 [facility] Work Phone: Blood platelet mean volumeon 12-26-2021 Platelet mean volume (Bld) [Entitic vol] 12.5 fL 6.2-12.0 [facility] Work Phone: Determination of erythrocyte mean corpuscular volume (MCV)on 12-26-2021 MCV (RBC) [Entitic vol] 91.6 fL 81-99 [facility] Work Phone: Hematocrit Auto (Bld) [Volum e fraction]on 12-26-2021 Hematocrit (Bld) [Volume fraction] 39.1 % 37-47 [facility] Work Phone: Laboratory - Chemistry and C hemistry - challengeon 12-26-2021 ALP [Catalytic activity/Vol] 52 U/L 45-117 [facility] Work Phone: ALT [Catalytic activity/Vol] 17 U/L 13-56 [facility] Work Phone: CO2 [Moles/Vol] 24.0 mmol/L 21.0-32.0 [facility] Work Phone: Globulin (S) [Mass/Vol] 3.5 g/dL 2.2-4.2 [facility] Work Phone: Urea nitrogen/Creatinine [Mass ratio] 13.3 mg/mg 10-20 [facility] Work Phone: Laboratory - Hematology and Cell countson 12-26-2021 Erythrocyte distribution width (RBC) [Entitic vol] 43.3 fL 35.1-43.9 [facility] Work Phone: Erythrocyte distribution width (RBC) [Ratio] 13.0 % 11.6-14.6 [facility] Work Phone: Immature granulocytes/100 WBC (Bld) 0.200 % 0.0-0.9 [facility] Work Phone: Comment on above: IG% - Immature Granu locytes (promyelocytes, myelocytes and metamyelocytes) > 1% indicates that a LEFT SHIFT is Present. MCH (RBC) [Entitic mass] 30.7 pg 27.0-32.0 [facility] Work Phone: Nucleated RBC/100 WBC (Bld) [Ratio] 0 % 0-5 [facility] Work Phone: MCHC Auto (RBC) [Mass/Vol]on 12-26-2021 MCHC (RBC) [Mass/Vol] 33.5 g/dL 32-[address] [facility] Work Phone: No Panel Informationon 12-26 Estimated GFR (MDRD) Amer 103 mL/min >60 [facility] Work Phone: Comment on above: GFR Calc Estimated GFR (MDRD) Non-Af Amer 85 mL/min >60 [facility] Work Phone: Comment on above: Non- GFR Calc Platelets bldon 12-26-2021 Platelets (Bld) [#/Vol] 250 10*3/uL 150-450 [facility] Work Phone: Serum or plasma C reactive p rotein measurement (mass/volume)on 12-26-2021 CRP [Mass/Vol] mg/L 0.0-3.0 [facility] Work Phone: Comment on above: C-Reactive Protein ( CRP) provides useful information for thediagnosis, therapy and monitoring of inflammatory processesand associated diseases. For the evaluation of Relative Riskfor Cardiovascular Disease, a High Sensitivity CRP (HSCRP)should be ordered. Serum or plasma albumin nicole urement (mass/volume)on 12-26-2021 Albumin [Mass/Vol] 4.2 g/dL 3.2-5.0 [facility] Work Phone: Serum or plasma albumin/glob ulin mass ratioon 12-26-2021 Albumin/Globulin [Mass ratio] 1.2 {ratio} 0.9-2.4 [facility] Work Phone: Serum or plasma calcium nicole urement (mass/volume)on 12-26-2021 Calcium [Mass/Vol] 9.3 mg/dL 8.5-10.1 [facility] Work Phone: Serum or plasma creatinine m easurement (mass/volume)on 12-26-2021 Creatinine [Mass/Vol] 0.75 mg/dL 0.55-1.[address] [facility] Work Phone: Comment on above: The validity of the calculated GFR & GFRAA in patients over 70 years has not been determined. Clinical correlation is essential. Serum or plasma urea nitroge n measurement (mass/volume)on 12-26-2021 Urea nitrogen [Mass/Vol] 10 mg/dL 7-18 [facility] Work Phone: Thin prep Papanicolaou smear with manual screeningon 12-26-2021 Thin prep Papanicolaou smear with manual screening 11 U/L 15-37 [facility] Work Phone: Thin prep Papanicolaou smear with manual screening 8 5-15 [facility] Work Phone: Basophil percentageon 2021 Basophil percentage 0 SEEN /hpf 0-5 [facility] Work Phone: Bilirubin Test strip Ql (U)o n 12-25-2021 Bilirubin Ql (U) Negative Negative [facility] Work Phone: Ketones Test strip Ql (U)on 12-25-2021 Ketones Ql (U) Negative Negative [facility] Work Phone: Mucus LM Ql (Urine sed)on Mucus Ql (Urine sed) 0 SEEN /hpf [facility] Work Phone: Nitrite Test strip Ql (U)on 12-25-2021 Nitrite Ql (U) Negative Negative [facility] Work Phone: Protein Test strip Ql (U)on 12-25-2021 Protein Ql (U) Negative Negative [facility] Work Phone: [phone] Squamous epithelial cells de tection in urine sediment by light microscopyon 12-25-2021 Epithelial cells.squamous LM Ql (Urine sed) 0-5 SEEN /hpf 5-10 [facility] Work Phone: Urine blood detectionon 11-30 RBC Ql (U) Negative Negative [facility] Work Phone: [phone] RBC Ql (U) 0 SEEN /hpf 0-5 [facility] Work Phone: Urine clarityon 12-25-2021 Clarity (U) Clear Clear [facility] Work Phone: Urine color determinationon 12-25-2021 Color (U) Yellow Yellow [facility] Work Phone: Urine glucose detectionon Glucose Ql (U) Normal mg/dl Normal [facility] Work Phone: Urine leukocyte esterase det ection by dipstickon 12-25-2021 Leukocyte esterase Test strip Ql (U) 25 /ul Negative [facility] Work Phone: Urine pHon 12-25-2021 pH (U) 7.0 [pH] 5.0 - 8.0 [facility] Work Phone: Urine sediment bacteria coun t by microscopy (number/high power field)on 12-25-2021 Bacteria LM.HPF (Urine sed) [#/Area] 0 /[HPF] None Seen [facility] Work Phone: Urine specific gravity measu rementon 12-25-2021 Specific gravity (U) [Rel density] 1.005 1.002-1.[address] [facility] Work Phone: [phone] Urobilinogen Auto test strip Ql (U)on 12-25-2021 Urobilinogen Ql (U) Normal mg/dl Normal [facility] Work Phone: Laboratory - Chemistry and C hemistry - challengeon 12-24-2021 Bilirubin Ql (U) Negative [facility] Work Phone: Glucose Ql (U) Negative [facility] Work Phone: Ketones Ql (U) Negative [facility] Work Phone: pH (U) 6.5 [pH] [facility] Work Phone: Specific gravity (U) [Rel density] 1.005 [facility] Work Phone: Urobilinogen (U) [Mass/Vol] Negative [facility] Work Phone: Laboratory - Hematology and Cell countson 12-24-2021 Hemoglobin Ql (U) Negative [facility] Work Phone: Laboratory - Specimen inform ationon 12-24-2021 Clarity (U) Clear [facility] Work Phone: Color (U) YELLOW [facility] Work Phone: Laboratory - Urinalysison Nitrite Ql (U) Negative [facility] Work Phone: Protein Ql (U) Negative [facility] Work Phone: No Panel Informationon 12-[address] [facility] Work Phone: Urine Non-Hemolyzed Blood Negative [facility] Work Phone: Office Visit (Neuro-General) on 12-17-2021 Follow-up visit Provider Impressions 56 year old female presenting for follow up of daily headaches. She also endorses facial/tongue numbness, visual disturbances, numbness/tingling in both hands, electric-like back pain and in the lower extremities. I personally reviewed the MRI brain and MRI cervical spine which showed no significant contributory findings. Most recent labs were also unremarkable. I personally reviewed the MRI T and L spine reports which noted the presence of a disc herniation at L3-L4 with compression of the L3 nerve root. However, she feels that the MRI findings are an incidental finding as she denies having significant back pain recently/currently or sciatic-like symptoms. She reports that my ordered labwork (B12, copper, etc) was normal. Patient is most concerned about further improving her headaches, which are most likely a combination of tension headaches and migraine with aura. I recommended increasing the Topamax gradually to 100 mg BID. She is scheduled to have carotid ultrasound and EMG/NCS in Dec and January. Follow up recommended in February. She is in agreement with the plan. Diagnoses/Problems Assessed Tension headache (307.81) (G44.209) Migraine with aura and without status migrainosus, not intractable (346.00) (G43.109) Paresthesia of upper and lower extremities of both sides (782.0) (R20.2) Orders Migraine with aura and without status migrainosus, not intractable, Tension headache Renew: Topiramate 25 MG Oral Tablet; 1st week: take 3 tablets (75 mg) twice daily. Thereafter: take 4 tablets (100 mg) twice daily Chief Complaint F/U Neurologic Evaluation. Pt here for tests results. History of Present Illness This is a 56 year old female presenting for follow up. Starting in March 2021, the patient was performing a yoga maneuver during which she was upside down. She then developed a grayish circular visual disturbance lasting for 2 days along with a severe right sided headache and both tongue and bilateral facial numbness (of the lower part of the face). Since then, she has been constant headaches described as a right sided aching pain. At one point, she also saw a right sided visual graying disturbance during one of her headaches. Sometimes, her headaches become more severe with associated nausea, photophobia, phonophobia, and dizziness. She has also been having numbness and tingling [...] reports that it does not bother her much. She reports improvement in the intensity of her headaches while taking Topamax 50 mg BID but she still gets them (albeit milder) on a daily basis. Sometimes, she will also get a more intense headaches (i.e.migraine). Sumatriptan 50 mg alleviates the migraines but it makes her very drowsy - as such, she cannot take it at work or elsewhere outside of the home. 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 Active Problems Problems Arthritis (716.90) (M19.90) Back pain (724.5) (M54.9) Dizziness (780.4) (R42) GERD without esophagitis (530.81) (K21.9) Intractable migraine with aura with status migrainosus (346.03) (G43.111) Migraine with aura and without status migrainosus, not intractable (346.00) (G43.109) Numbness and tingling in both hands (782.0) (R20.0,R20.2) Numbness of tongue (782.0) (R20.0) Pain in both lower extremities (729.5) (M79.604,M79.605) Paresthesia of upper and lower extremities of both sides (782.0) (R20.2) Systemic lupus erythematosus, unspecified SLE type, unspecified organ involvement status (710.0) (M32.9) Tension headache (307.81) (G44.209) Visual disturbance (368.9) (H53.9) Family History Mother Family history of chronic myeloid leukemia (V16.6) (Z80.6) Father Family history of cardiac disorder (V17.49) (Z82.49) Family history of hypertension (V17.49) (Z82.49) Family history of hypothyroidism (V18.19) (Z83.49) Social History Problems Never smoker No illicit drug use Occasional alcohol use Allergies NoKnown No Known Allergies Recorded By: Renee Tillman; 04/07/2020 3:30:46 PM Current Meds Medication NameInstruction CeleBREX 100 MG Oral Capsule Levothyroxine Sodium 75 MCG Oral TabletTAKE 1 TABLET DAILY DIRECTED. Mycophenolate Mofetil 250 MG Oral CapsuleTAKE 1 CAPSULE BY MOUTH TWICE A DAY Pantoprazole Sodium 20 MG Oral Tablet Delayed ReleaseTAKE 1 TABLET BY MOUTH EVERY DAY SUMAtriptan Succinate 50 MG Oral TabletTake 1 tablet at onset of headache/migraine. You can take another tablet after 2 hours. No more than 2 tablets in 24 hours. Topiramate 25 MG Oral Zlppgr9rd week: 1 tablet daily. 2nd week - 1 tablet BID; 3rd week - 1 tablet morning AND 2 tablets nightly; thereafter - 2 tablets BID Vitals Vital Sig (more content not included)... Normal [facility] Tobacco Screening.on 022 Fall risk assessment a) No falls within the last year [facility] 201 Work Phone: Tobacco use status CPHS a) Yes M [facility] 201 Work Phone: Absolute lymphocyte counton 10-31-2021 Lymphocytes Auto (Unsp spec) [#/Vol] 1.86 10*3/uL 0.83-4.51 [facility] Work Phone: Basophil percentageon 2021 Basophils/100 WBC (Bld) 0.8 % 0-1 [facility] Work Phone: Bilirubin [Mass/Vol] 0.90 mg/dL 0.20-1.00 [facility] Work Phone: Comment on above: For patients on eltr ombopag therapy, use of Dimension Polson TBIL is not recommended. Chloride [Moles/Vol] 111 mmol/L 98-107 [facility] Work Phone: Eosinophils/100 WBC (Bld) 1.9 % 0-5 [facility] Work Phone: Glucose [Mass/Vol] 97 mg/dL 74-106 [facility] Work Phone: Neutrophils (Bld) [#/Vol] 2.4 10*3/uL 2.0-7.7 [facility] Work Phone: Neutrophils/100 WBC (Bld) 50.8 % 47-70 [facility] Work Phone: Potassium [Moles/Vol] 3.6 mmol/L 3.5-5.[address] [facility] Work Phone: Protein [Mass/Vol] 7.5 g/dL 6.4-8.2 [facility] Work Phone: Sodium [Moles/Vol] 141 mmol/L 136-145 [facility] Work Phone: WBC (Bld) [#/Vol] 4.7 10*3/uL 4.4-11.0 [facility] Work Phone: Blood erythrocytes count (nu mber/volume)on 10-31-2021 RBC (Bld) [#/Vol] 4.26 10*6/uL [facility].2-[facility]: Blood hemoglobin measurement (mass/volume)on 10-31-2021 Hemoglobin (Bld) [Mass/Vol] 13.1 g/dL 12.0-15.0 [facility] Work Phone: Blood lymphocytes/100 leukoc yteson 10-31-2021 Lymphocytes/100 WBC (Bld) 39.5 % 19-41 [facility] Work Phone: Blood monocytes/100 leukocyt eson 10-31-2021 Monocytes/100 WBC (Bld) 6.8 % 0-10 [facility] Work Phone: Blood platelet mean volumeon 10-31-2021 Platelet mean volume (Bld) [Entitic vol] 12.1 fL 6.2-12.0 [facility] Work Phone: Determination of erythrocyte mean corpuscular volume (MCV)on 10-31-2021 MCV (RBC) [Entitic vol] 93.4 fL 81-99 [facility] Work Phone: Hematocrit Auto (Bld) [Volum e fraction]on 10-31-2021 Hematocrit (Bld) [Volume fraction] 39.8 % 37-47 [facility] Work Phone: Laboratory - Chemistry and C hemistry - challengeon 10-31-2021 ALP [Catalytic activity/Vol] 46 U/L 45-117 [facility] Work Phone: ALT [Catalytic activity/Vol] 18 U/L 13-56 [facility] Work Phone: CO2 [Moles/Vol] 25.0 mmol/L 21.0-32.0 [facility] Work Phone: Globulin (S) [Mass/Vol] 3.4 g/dL 2.2-4.2 [facility] Work Phone: Urea nitrogen/Creatinine [Mass ratio] 15.6 mg/mg 10-20 [facility] Work Phone: Laboratory - Hematology and Cell countson 10-31-2021 Erythrocyte distribution width (RBC) [Entitic vol] 43.5 fL 35.1-43.9 [facility] Work Phone: Erythrocyte distribution width (RBC) [Ratio] 12.6 % 11.6-14.6 [facility] Work Phone: Immature granulocytes/100 WBC (Bld) 0.200 % 0.0-0.9 [facility] Work Phone: Comment on above: IG% - Immature Granu locytes (promyelocytes, myelocytes and metamyelocytes) > 1% indicates that a LEFT SHIFT is Present. MCH (RBC) [Entitic mass] 30.8 pg 27.0-32.0 [facility] Work Phone: Nucleated RBC/100 WBC (Bld) [Ratio] 0 % 0-5 [facility] Work Phone: MCHC Auto (RBC) [Mass/Vol]on 10-31-2021 MCHC (RBC) [Mass/Vol] 32.9 g/dL 32-[address] [facility] Work Phone: No Panel Informationon 10-31 Estimated GFR (MDRD) Amer 111 mL/min >60 [facility] Work Phone: Comment on above: GFR Calc Estimated GFR (MDRD) Non-Af Amer 92 mL/min >60 [facility] Work Phone: Comment on above: Non- GFR Calc Platelets bldon 10-31-2021 Platelets (Bld) [#/Vol] 235 10*3/uL 150-450 [facility] Work Phone: Serum or plasma C reactive p rotein measurement (mass/volume)on 10-31-2021 CRP [Mass/Vol] mg/L 0.0-3.0 [facility] Work Phone: Comment on above: C-Reactive Protein ( CRP) provides useful information for thediagnosis, therapy and monitoring of inflammatory processesand associated diseases. For the evaluation of Relative Riskfor Cardiovascular Disease, a High Sensitivity CRP (HSCRP)should be ordered. Serum or plasma albumin nicole urement (mass/volume)on 10-31-2021 Albumin [Mass/Vol] 4.1 g/dL 3.2-5.0 [facility] Work Phone: Serum or plasma albumin/glob ulin mass ratioon 10-31-2021 Albumin/Globulin [Mass ratio] 1.2 {ratio} 0.9-2.4 [facility] Work Phone: Serum or plasma calcium nicole urement (mass/volume)on 10-31-2021 Calcium [Mass/Vol] 9.1 mg/dL 8.5-10.1 [facility] Work Phone: Serum or plasma creatinine m easurement (mass/volume)on 10-31-2021 Creatinine [Mass/Vol] 0.70 mg/dL 0.55-1.[address] [facility] Work Phone: Comment on above: The validity of the calculated GFR & GFRAA in patients over 70 years has not been determined. Clinical correlation is essential. Serum or plasma urea nitroge n measurement (mass/volume)on 10-31-2021 Urea nitrogen [Mass/Vol] 11 mg/dL 7-18 [facility] Work Phone: Thin prep Papanicolaou smear with manual screeningon 10-31-2021 Thin prep Papanicolaou smear with manual screening 15 U/L 15-37 [facility] Work Phone: Thin prep Papanicolaou smear with manual screening 5 5-15 [facility] Work Phone: Laboratory - Chemistry and C hemistry - challengeon 10-09-2021 Cobalamin (Vitamin B12) [Mass/Vol] 837 pg/mL 211-911 [facility] Work Phone: Thin prep Papanicolaou smear with manual screeningon 10-09-2021 Thin prep Papanicolaou smear with manual screening 93 ug/dL 80-158 [facility] Work Phone: Comment on above: Detection Limit = 5P erformed at: [facility] [address] [id number] Director: Susan Del Valle MD, Phone: [phone] Blood Pressure Cuff Sizeon 0 10-02-2021 Fall risk assessment b) One or more fall s in the last year [facility] DO Work Phone: Tobacco use status CPHS b) No M [facility] DO Work Phone: Blood Pressure Cuff Size Adult [facility] DO Work Phone: Absolute lymphocyte counton 09-05-2021 Lymphocytes Auto (Unsp spec) [#/Vol] 2.62 10*3/uL 0.83-4.51 [facility] Work Phone: Basophil percentageon 2021 Basophils/100 WBC (Bld) 0.3 % 0-1 [facility] Work Phone: Bilirubin [Mass/Vol] 0.40 mg/dL 0.20-1.00 [facility] Work Phone: Comment on above: For patients on eltr ombopag therapy, use of Dimension Polson TBIL is not recommended. Chloride [Moles/Vol] 104 mmol/L 98-107 [facility] Work Phone: Eosinophils/100 WBC (Bld) 0.5 % 0-5 [facility] Work Phone: Glucose [Mass/Vol] 91 mg/dL 74-106 [facility] Work Phone: [phone] Neutrophils (Bld) [#/Vol] 4.6 10*3/uL 2.0-7.7 [facility] Work Phone: Neutrophils/100 WBC (Bld) 58.7 % 47-70 [facility] Work Phone: Potassium [Moles/Vol] 3.8 mmol/L 3.5-5.1 [facility] Work Phone: [phone] Protein [Mass/Vol] 7.2 g/dL 6.4-8.2 [facility]: Sodium [Moles/Vol] 138 mmol/L 136-145 [facility] Work Phone: WBC (Bld) [#/Vol] 7.9 10*3/uL 4.4-11.0 [facility] Work Phone: [phone] Blood erythrocytes count (nu mber/volume)on 09-05-2021 RBC (Bld) [#/Vol] 4.10 10*6/uL 4.2-5.4 [facility] Work Phone: Blood hemoglobin measurement (mass/volume)on 09-05-2021 Hemoglobin (Bld) [Mass/Vol] 12.8 g/dL 12.0-15.0 [facility] Work Phone: Blood lymphocytes/100 leukoc yteson 09-05-2021 Lymphocytes/100 WBC (Bld) 33.3 % 19-41 [facility] Work Phone: Blood monocytes/100 leukocyt eson 09-05-2021 Monocytes/100 WBC (Bld) 6.9 % 0-10 [facility] Work Phone: Blood platelet mean volumeon 09-05-2021 Platelet mean volume (Bld) [Entitic vol] 11.8 fL 6.2-12.0 [facility] Work Phone: Determination of erythrocyte mean corpuscular volume (MCV)on 09-05-2021 MCV (RBC) [Entitic vol] 94.6 fL 81-99 [facility] Work Phone: Hematocrit Auto (Bld) [Volum e fraction]on 09-05-2021 Hematocrit (Bld) [Volume fraction] 38.8 % 37-47 [facility] Work Phone: Laboratory - Chemistry and C hemistry - challengeon 09-05-2021 ALP [Catalytic activity/Vol] 43 U/L 45-117 [facility] Work Phone: ALT [Catalytic activity/Vol] 24 U/L 13-56 [facility] Work Phone: CO2 [Moles/Vol] 28.0 mmol/L 21.0-32.0 [facility] Work Phone: Globulin (S) [Mass/Vol] 3.4 g/dL 2.2-4.2 [facility] Work Phone: Urea nitrogen/Creatinine [Mass ratio] 19.3 mg/mg 10-20 [facility] Work Phone: Laboratory - Hematology and Cell countson 09-05-2021 Erythrocyte distribution width (RBC) [Entitic vol] 45.0 fL 35.1-43.9 [facility] Work Phone: Erythrocyte distribution width (RBC) [Ratio] 13.0 % 11.6-14.6 [facility] Work Phone: Immature granulocytes/100 WBC (Bld) 0.300 % 0.0-0.9 [facility] Work Phone: Comment on above: IG% - Immature Granu locytes (promyelocytes, myelocytes and metamyelocytes) > 1% indicates that a LEFT SHIFT is Present. MCH (RBC) [Entitic mass] 31.2 pg 27.0-32.0 [facility] Work Phone: Nucleated RBC/100 WBC (Bld) [Ratio] 0 % 0-5 [facility] Work Phone: MCHC Auto (RBC) [Mass/Vol]on 09-05-2021 MCHC (RBC) [Mass/Vol] 33.0 g/dL 32-36 [facility] Work Phone: No Panel Informationon 09-05 Estimated GFR (MDRD) Amer 107 mL/min >60 [facility] Work Phone: Comment on above: GFR Calc Estimated GFR (MDRD) Non-Af Amer 88 mL/min >60 [facility] Work Phone: Comment on above: Non- GFR Calc Platelets bldon 09-05-2021 Platelets (Bld) [#/Vol] 266 10*3/uL 150-450 [facility] Work Phone: Serum or plasma C reactive p rotein measurement (mass/volume)on 09-05-2021 CRP [Mass/Vol] mg/L 0.0-3.0 [facility] Work Phone: Comment on above: C-Reactive Protein ( CRP) provides useful information for thediagnosis, therapy and monitoring of inflammatory processesand associated diseases. For the evaluation of Relative Riskfor Cardiovascular Disease, a High Sensitivity CRP (HSCRP)should be ordered. Serum or plasma albumin nicole urement (mass/volume)on 09-05-2021 Albumin [Mass/Vol] 3.8 g/dL 3.2-5.0 [facility] Work Phone: Serum or plasma albumin/glob ulin mass ratioon 09-05-2021 Albumin/Globulin [Mass ratio] 1.1 {ratio} 0.9-2.4 [facility] Work Phone: Serum or plasma calcium nicole urement (mass/volume)on 09-05-2021 Calcium [Mass/Vol] 9.3 mg/dL 8.5-10.1 [facility] Work Phone: Serum or plasma creatinine m easurement (mass/volume)on 09-05-2021 Creatinine [Mass/Vol] 0.73 mg/dL 0.55-1.[address] [facility] Work Phone: Comment on above: The validity of the calculated GFR & GFRAA in patients over 70 years has not been determined. Clinical correlation is essential. Serum or plasma urea nitroge n measurement (mass/volume)on 09-05-2021 Urea nitrogen [Mass/Vol] 14 mg/dL 7-18 [facility] Work Phone: Thin prep Papanicolaou smear with manual screeningon 09-05-2021 Thin prep Papanicolaou smear with manual screening 12 U/L 15-37 [facility] Work Phone: Thin prep Papanicolaou smear with manual screening 6 5-15 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 Work Phone: Laboratory - Chemistry and C hemistry - challengeon 07-19-2021 Cobalamin (Vitamin B12) [Mass/Vol] 807 pg/mL 211-911 [facility] Work Phone: Laboratory - Coagulationon 0 07-19-2021 aPTT Coag (Bld) [Time] 26.1 s 24.1-36.2 [facility] Work Phone: PT Coag (PPP) [Time] 12.4 s 11.7-14.9 [facility] Work Phone: No Panel Informationon 07-19 Anti-Cardiolipin IgM Antibody < 9 MPL U/mL 0-12 [facility] Work Phone: Comment on above: Negative: <13 Indete rminate: 13 - 20 Low-Med Positive: >20 - 80 High Positive: >80 Miscellaneous Test See comment [facility] Work Phone: Comment on above: TEST RESULT LIMITSNM A IgG Autoantibodies <1.5 U/mL 0.0-3.0 Negative:0.0-3.0 Positive: >3.0 TESTING PERFORMED AT [facility]. ORIGINAL REPORT ON FILE IN LAB CONTAINS ADDITIONAL TEST SITE INFORMATION. Serum Treponema species anti body detectionon 07-19-2021 Treponema sp Ab Ql (S) Non-Reactive [facility] Work Phone: Serum beta 2 glycoprotein 1 IgA antibody detectionon 07-19-2021 Beta 2 glycoprotein 1 IgA Ql (S) <9 0-25 [facility] Work Phone: Comment on above: Result Units: GPI Ig A unitsThe reference interval reflects a 3SD or 99th percentileinterval, which is thought to represent a potentiallyclinically significant result in accordance with theInternational Consensus Statement on the classificationcriteria for definitive antiphospholipid syndrome (APS). JThromb Haem 2006;4:295-306. Serum beta 2 glycoprotein 1 IgG antibody detectionon 07-19-2021 Beta 2 glycoprotein 1 IgG Ql (S) <9 0-20 [facility] Work Phone: Comment on above: Result Units: GPI Ig G unitsThe reference interval reflects a 3SD or 99th percentileinterval, which is thought to represent a potentiallyclinically significant result in accordance with theInternational Consensus Statement on the classificationcriteria for definitive antiphospholipid syndrome (APS). JThromb Haem 2006;4:295-306. Serum beta 2 glycoprotein 1 IgM antibody detectionon 07-19-2021 Beta 2 glycoprotein 1 IgM Ql (S) <9 0-32 [facility] Work Phone: Comment on above: Result Units: GPI Ig M unitsThe reference interval reflects a 3SD or 99th percentileinterval, which is thought to represent a potentiallyclinically significant result in accordance with theInternational Consensus Statement on the classificationcriteria for definitive antiphospholipid syndrome (APS). JThromb Haem 2006;4:295-306.Performed at: [facility] [place] [id number] [place], [place] [id number] Director: Espinoza Bhatia PhD, Phone: [phone] at: [facility] [address] [id number] Director: Susan Del Valle MD, Phone: [id number] Serum cardiolipin IgG antibo dy assay by immunoassay (units/volume)on 07-19-2021 Cardiolipin IgG IA Qn (S) < 9 GPL U/mL 0-14 [facility] Work Phone: Comment on above: Negative: <15 Indete rminate: 15 - 20 Low-Med Positive: >20 - 80 High Positive: >80 Serum or plasma cardiolipin IgA antibody assay (units/volume)on 07-19-2021 Cardiolipin IgA Qn < 9 APL U/mL 0-11 [facility] Work Phone: Comment on above: Negative: <12 Indete rminate: 12 - 20 Low-Med Positive: >20 - 80 High Positive: >80 Serum or plasma folate measu rement (mass/volume)on 07-19-2021 Folate [Mass/Vol] 14.50 ng/mL 3.1-55.4 [facility] Work Phone: Tobacco Screening.on 022 Fall risk assessment a) No falls within the last year [facility] Work Phone: Tobacco use status [facility] b) No M [facility] Work Phone: Absolute lymphocyte counton 07-12-2021 Lymphocytes Auto (Unsp spec) [#/Vol] 1.62 10*3/uL 0.83-4.51 [facility] Work Phone: Basophil percentageon 2021 Basophils/100 WBC (Bld) 0.7 % 0-1 [facility] Work Phone: Eosinophils/100 WBC (Bld) 3.9 % 0-5 [facility] Work Phone: Neutrophils (Bld) [#/Vol] 1.9 10*3/uL 2.0-7.7 [facility] Work Phone: Neutrophils/100 WBC (Bld) 45.9 % 47-70 [facility] Work Phone: WBC (Bld) [#/Vol] 4.1 10*3/uL 4.4-11.0 [facility] Work Phone: Bilirubin [Mass/Vol] 0.60 mg/dL 0.20-1.00 [facility] Work Phone: Comment on above: For patients on eltr ombopag therapy, use of Dimension Polson TBIL is not recommended. Chloride [Moles/Vol] 105 mmol/L 98-107 [facility] Work Phone: Glucose [Mass/Vol] 93 mg/dL 74-106 [facility] Work Phone: Potassium [Moles/Vol] 4.0 mmol/L 3.5-5.[address] [facility] Work Phone: Protein [Mass/Vol] 6.8 g/dL 6.4-8.2 [facility] Work Phone: Sodium [Moles/Vol] 137 mmol/L 136-145 [facility] Work Phone: Blood erythrocytes count (nu mber/volume)on 07-12-2021 RBC (Bld) [#/Vol] 3.74 10*6/uL 4.2-5.4 [facility] Work Phone: Blood hemoglobin measurement (mass/volume)on 07-12-2021 Hemoglobin (Bld) [Mass/Vol] 11.5 g/dL 12.0-15.0 [facility] Work Phone: Blood lymphocytes/100 leukoc yteson 07-12-2021 Lymphocytes/100 WBC (Bld) 39.3 % 19-41 [facility] Work Phone: Blood monocytes/100 leukocyt eson 07-12-2021 Monocytes/100 WBC (Bld) 10.0 % 0-10 [facility] Work Phone: Blood platelet mean volumeon 07-12-2021 Platelet mean volume (Bld) [Entitic vol] 11.4 fL 6.2-12.0 [facility] Work Phone: Determination of erythrocyte mean corpuscular volume (MCV)on 07-12-2021 MCV (RBC) [Entitic vol] 94.1 fL 81-99 [facility] Work Phone: Hematocrit Auto (Bld) [Volum e fraction]on 07-12-2021 Hematocrit (Bld) [Volume fraction] 35.2 % 37-47 [facility] Work Phone: Laboratory - Chemistry and C hemistry - challengeon 07-12-2021 ALP [Catalytic activity/Vol] 41 U/L 45-117 [facility] Work Phone: ALT [Catalytic activity/Vol] 20 U/L 13-56 [facility] Work Phone: CO2 [Moles/Vol] 29.0 mmol/L 21.0-32.0 [facility] Work Phone: Globulin (S) [Mass/Vol] 3.2 g/dL 2.2-4.2 [facility] Work Phone: Urea nitrogen/Creatinine [Mass ratio] 13.7 mg/mg 10-20 [facility] Work Phone: Laboratory - Hematology and Cell countson 07-12-2021 Erythrocyte distribution width (RBC) [Entitic vol] 46.6 fL 35.1-43.9 [facility] Work Phone: Erythrocyte distribution width (RBC) [Ratio] 13.4 % 11.6-14.6 [facility] Work Phone: Immature granulocytes/100 WBC (Bld) 0.200 % 0.0-0.9 [facility] Work Phone: Comment on above: IG% - Immature Granu locytes (promyelocytes, myelocytes and metamyelocytes) > 1% indicates that a LEFT SHIFT is Present. MCH (RBC) [Entitic mass] 30.7 pg 27.0-32.0 [facility] Work Phone: Nucleated RBC/100 WBC (Bld) [Ratio] 0 % 0-5 [facility] Work Phone: MCHC Auto (RBC) [Mass/Vol]on 07-12-2021 MCHC (RBC) [Mass/Vol] 32.7 g/dL 32-[address] [facility] Work Phone: No Panel Informationon 07-12 Estimated GFR (MDRD) Amer 120 mL/min >60 [facility] Work Phone: Comment on above: GFR Calc Estimated GFR (MDRD) Non-Af Amer 99 mL/min >60 [facility] Work Phone: Comment on above: Non- GFR Calc Thyroid Stimulating Hormone (TSH) 1.43 uIU/mL 0.358-3.74 [facility] Work Phone: Platelets bldon 07-12-2021 Platelets (Bld) [#/Vol] 189 10*3/uL 150-450 [facility] Work Phone: Serum or plasma C reactive p rotein measurement (mass/volume)on 07-12-2021 CRP [Mass/Vol] mg/L 0.0-3.0 [facility] Work Phone: Comment on above: C-Reactive Protein ( CRP) provides useful information for thediagnosis, therapy and monitoring of inflammatory processesand associated diseases. For the evaluation of Relative Riskfor Cardiovascular Disease, a High Sensitivity CRP (HSCRP)should be ordered. Serum or plasma albumin nicole urement (mass/volume)on 07-12-2021 Albumin [Mass/Vol] 3.6 g/dL 3.2-5.0 [facility] Work Phone: Serum or plasma albumin/glob ulin mass ratioon 07-12-2021 Albumin/Globulin [Mass ratio] 1.1 {ratio} 0.9-2.4 [facility] Work Phone: Serum or plasma calcium nicole urement (mass/volume)on 07-12-2021 Calcium [Mass/Vol] 8.6 mg/dL 8.5-10.1 [facility] Work Phone: Serum or plasma creatinine m easurement (mass/volume)on 07-12-2021 Creatinine [Mass/Vol] 0.66 mg/dL 0.55-1.02 [facility] Work Phone: Comment on above: The validity of the calculated GFR & GFRAA in patients over 70 years has not been determined. Clinical correlation is essential. Serum or plasma urea nitroge n measurement (mass/volume)on 07-12-2021 Urea nitrogen [Mass/Vol] 9 mg/dL 7-18 [facility] Work Phone: Thin prep Papanicolaou smear with manual screeningon 07-12-2021 Thin prep Papanicolaou smear with manual screening 15 U/L 15-37 [facility] Work Phone: Thin prep Papanicolaou smear with manual screening 3 5-15 [facility] Work Phone: Tobacco Screening.on 022 Fall risk assessment a) No falls within the last year [facility]-Neurolog [facility] [address] Work Phone: Tobacco use status [facility] b) No M G-Neurolog [facility] [address] Work Phone: Absolute lymphocyte counton 06-11-2021 Lymphocytes Auto (Unsp spec) [#/Vol] 1.34 10*3/uL 0.83-4.51 [facility] Work Phone: Basophil percentageon 2021 Basophils/100 WBC (Bld) 1.1 % 0-1 [facility] Work Phone: Bilirubin [Mass/Vol] 0.50 mg/dL 0.20-1.00 [facility] Work Phone: Comment on above: For patients on eltr ombopag therapy, use of Dimension Polson TBIL is not recommended. Chloride [Moles/Vol] 107 mmol/L 98-107 [facility]: Eosinophils/100 WBC (Bld) 2.4 % 0-5 [facility] Work Phone: Glucose [Mass/Vol] 92 mg/dL 74-106 [facility] Work Phone: Neutrophils (Bld) [#/Vol] 1.9 10*3/uL 2.0-7.7 [facility] Work Phone: Neutrophils/100 WBC (Bld) 48.9 % 47-70 [facility] Work Phone: Potassium [Moles/Vol] 3.6 mmol/L 3.5-5.1 [facility] Work Phone: Protein [Mass/Vol] 7.3 g/dL 6.4-8.2 [facility] Work [facility]: Sodium [Moles/Vol] 140 mmol/L 136-145 [facility] Work Phone: WBC (Bld) [#/Vol] 3.8 10*3/uL 4.4-11.0 [facility] Work Phone: Blood erythrocytes count (nu mber/volume)on 06-11-2021 RBC (Bld) [#/Vol] 4.04 10*6/uL 4.2-5.4 [facility]: Blood hemoglobin measurement (mass/volume)on 06-11-2021 Hemoglobin (Bld) [Mass/Vol] 12.3 g/dL 12.0-15.0 [facility] Work Phone: Blood lymphocytes/100 leukoc yteson 06-11-2021 Lymphocytes/100 WBC (Bld) 35.4 % 19-41 [facility] Work Phone: Blood monocytes/100 leukocyt eson 06-11-2021 Monocytes/100 WBC (Bld) 11.9 % 0-10 [facility] Work Phone: Blood platelet mean volumeon 06-11-2021 Platelet mean volume (Bld) [Entitic vol] 12.0 fL 6.2-12.0 [facility] Work Phone: Determination of erythrocyte mean corpuscular volume (MCV)on 06-11-2021 MCV (RBC) [Entitic vol] 95.3 fL 81-99 [facility] Work Phone: Hematocrit Auto (Bld) [Volum e fraction]on 06-11-2021 Hematocrit (Bld) [Volume fraction] 38.5 % 37-47 [facility] Work Phone: Laboratory - Chemistry and C hemistry - challengeon 06-11-2021 ALP [Catalytic activity/Vol] 42 U/L 45-117 [facility] Work Phone: ALT [Catalytic activity/Vol] 24 U/L 13-56 [facility] Work Phone: CO2 [Moles/Vol] 29.0 mmol/L 21.0-32.0 [facility] Work Phone: Globulin (S) [Mass/Vol] 3.6 g/dL 2.2-4.2 [facility] Work Phone: Urea nitrogen/Creatinine [Mass ratio] 10.8 mg/mg 10-20 [facility] Work Phone: Laboratory - Hematology and Cell countson 06-11-2021 Erythrocyte distribution width (RBC) [Entitic vol] 49.1 fL 35.1-43.9 [facility] Work Phone: Erythrocyte distribution width (RBC) [Ratio] 14.0 % 11.6-14.6 [facility] Work Phone: Immature granulocytes/100 WBC (Bld) 0.300 % 0.0-0.9 [facility] Work Phone: Comment on above: IG% - Immature Granu locytes (promyelocytes, myelocytes and metamyelocytes) > 1% indicates that a LEFT SHIFT is Present. MCH (RBC) [Entitic mass] 30.4 pg 27.0-32.0 [facility] Work Phone: Nucleated RBC/100 WBC (Bld) [Ratio] 0 % 0-5 [facility] Work Phone: MCHC Auto (RBC) [Mass/Vol]on 06-11-2021 MCHC (RBC) [Mass/Vol] 31.9 g/dL 32-[address] [facility] Work Phone: No Panel Informationon 06-11 Estimated GFR (MDRD) Amer 122 mL/min >60 [facility] Work Phone: Comment on above: GFR Calc Estimated GFR (MDRD) Non-Af Amer 101 mL/min >60 [facility] Work Phone: Comment on above: Non- GFR Calc Thyroid Stimulating Hormone (TSH) 4.54 uIU/mL 0.358-3.74 [facility] Work Phone: Platelets bldon 06-11-2021 Platelets (Bld) [#/Vol] 207 10*3/uL 150-450 [facility] Work Phone: Serum or plasma albumin nicole urement (mass/volume)on 06-11-2021 Albumin [Mass/Vol] 3.7 g/dL 3.2-5.0 [facility] Work Phone: Serum or plasma albumin/glob ulin mass ratioon 06-11-2021 Albumin/Globulin [Mass ratio] 1.0 {ratio} 0.9-2.4 [facility] Work Phone: Serum or plasma calcium nicole urement (mass/volume)on 06-11-2021 Calcium [Mass/Vol] 8.7 mg/dL 8.5-10.1 [facility] Work Phone: Serum or plasma creatinine m easurement (mass/volume)on 06-11-2021 Creatinine [Mass/Vol] 0.65 mg/dL 0.55-1.[address] [facility] Work Phone: Comment on above: The validity of the calculated GFR & GFRAA in patients over 70 years has not been determined. Clinical correlation is essential. Serum or plasma urea nitroge n measurement (mass/volume)on 06-11-2021 Urea nitrogen [Mass/Vol] 7 mg/dL 7-18 [facility] Work Phone: Thin prep Papanicolaou smear with manual screeningon 06-11-2021 Thin prep Papanicolaou smear with manual screening 18 U/L 15-37 [facility] Work Phone: [phone] Thin prep Papanicolaou smear with manual screening 4 5-15 [facility] Work Phone: Absolute lymphocyte counton 04-24-2021 Lymphocytes Auto (Unsp spec) [#/Vol] 1.74 10*3/uL 0.83-4.51 [facility] Work Phone: Basophil percentageon 2021 Basophils/100 WBC (Bld) 0.7 % 0-1 [facility] Work Phone: Chloride [Moles/Vol] 110 mmol/L 98-107 [facility] Work Phone: Eosinophils/100 WBC (Bld) 3.7 % 0-5 [facility] Work Phone: Glucose [Mass/Vol] 79 mg/dL 74-106 [facility] Work Phone: Neutrophils (Bld) [#/Vol] 2.2 10*3/uL 2.0-7.7 [facility] Work Phone: [phone] Neutrophils/100 WBC (Bld) 48.5 % 47-70 [facility] Work Phone: Potassium [Moles/Vol] 3.5 mmol/L 3.5-5.[address] [facility] Work Phone: Sodium [Moles/Vol] 143 mmol/L 136-145 [facility] Work Phone: WBC (Bld) [#/Vol] 4.6 10*3/uL 4.4-11.0 [facility] Work Phone: Blood erythrocytes count (nu mber/volume)on 04-24-2021 RBC (Bld) [#/Vol] 3.64 10*6/uL 4.2-5.4 [facility] Work Phone: Blood hemoglobin measurement (mass/volume)on 04-24-2021 Hemoglobin (Bld) [Mass/Vol] 11.3 g/dL 12.0-15.0 [facility] Work Phone: Blood lymphocytes/100 leukoc yteson 04-24-2021 Lymphocytes/100 WBC (Bld) 37.8 % 19-41 [facility] Work Phone: Blood monocytes/100 leukocyt eson 04-24-2021 Monocytes/100 WBC (Bld) 9.1 % 0-10 [facility] Work Phone: Blood platelet mean volumeon 04-24-2021 Platelet mean volume (Bld) [Entitic vol] 12.0 fL 6.2-12.0 [facility] Work Phone: Determination of erythrocyte mean corpuscular volume (MCV)on 04-24-2021 MCV (RBC) [Entitic vol] 92.0 fL 81-99 [facility] Work Phone: Hematocrit Auto (Bld) [Volum e fraction]on 04-24-2021 Hematocrit (Bld) [Volume fraction] 33.5 % 37-47 [facility] Work Phone: Laboratory - Chemistry and C hemistry - challengeon 04-24-2021 CO2 [Moles/Vol] 25.0 mmol/L 21.0-32.0 [facility] Work Phone: Magnesium [Mass/Vol] 2.1 mg/dL 1.6-2.6 [facility] Work Phone: Urea nitrogen/Creatinine [Mass ratio] 19.7 mg/mg 10-20 [facility] Work Phone: Laboratory - Hematology and Cell countson 04-24-2021 Erythrocyte distribution width (RBC) [Entitic vol] 43.2 fL 35.1-43.9 [facility] Work Phone: Erythrocyte distribution width (RBC) [Ratio] 12.7 % 11.6-14.6 [facility] Work Phone: Immature granulocytes/100 WBC (Bld) 0.200 % 0.0-0.9 [facility] Work Phone: Comment on above: IG% - Immature Granu locytes (promyelocytes, myelocytes and metamyelocytes) > 1% indicates that a LEFT SHIFT is Present. MCH (RBC) [Entitic mass] 31.0 pg 27.0-32.0 [facility] Work Phone: Nucleated RBC/100 WBC (Bld) [Ratio] 0 % 0-5 [facility] Work Phone: MCHC Auto (RBC) [Mass/Vol]on 04-24-2021 MCHC (RBC) [Mass/Vol] 33.7 g/dL 32-[address] [facility] Work Phone: No Panel Informationon 04-24 Estimated Creatinine Clearance Calc 77.07 ml/min [facility] Work Phone: Estimated GFR (MDRD) Amer 120 mL/min >60 [facility] Work Phone: Comment on above: GFR Calc Estimated GFR (MDRD) Non-Af Amer 99 mL/min >60 [facility] Work Phone: Comment on above: Non- GFR Calc Thyroid Stimulating Hormone (TSH) 0.03 uIU/mL 0.358-3.74 [facility] Work Phone: Platelets bldon 04-24-2021 Platelets (Bld) [#/Vol] 200 10*3/uL 150-450 [facility] Work Phone: Serum or plasma calcium nicole urement (mass/volume)on 04-24-2021 Calcium [Mass/Vol] 8.9 mg/dL 8.5-10.1 [facility] Work Phone: Serum or plasma creatinine m easurement (mass/volume)on 04-24-2021 Creatinine [Mass/Vol] 0.66 mg/dL 0.55-1.[address] [facility] Work Phone: Comment on above: The validity of the calculated GFR & GFRAA in patients over 70 years has not been determined. Clinical correlation is essential. Serum or plasma urea nitroge n measurement (mass/volume)on 04-24-2021 Urea nitrogen [Mass/Vol] 13 mg/dL 7-18 [facility] Work Phone: Thin prep Papanicolaou smear with manual screeningon 04-24-2021 Thin prep Papanicolaou smear with manual screening 8 5-15 [facility] Work Phone: Laboratory - Microbiology an d Antimicrobial susceptibilityon 04-22-2021 SARS-CoV-2 (COVID-19) RNA ARLETH+probe Ql (Unsp spec) Not detected [facility] Work Phone: Office Visit: chronic cougho n 09-18-2016 Documentation of current medications (procedure) Done Invalid Interpretation Code [facility] Phone: Protein mass conc Done Invalid Interpretation Code [facility] Phone: Tobacco smoking status TNIS Never Invalid Interpretation Code [facility] Phone: Tobacco smoking status [facility] Never smoker Invalid Interpretation Code [facility] Phone: Tobacco use [facility] Never smoker Invalid Interpretation Code [facility] Phone: Office Visit: new patient, symone oumonicaon 06-14-2016 Fall risk assessment No Invalid Interpretation Code [facility] Phone: Lab Report: CBC W/Diff, Auto matedon 02-08-2015 Basophils/100 leukocytes 0.3 % Invalid Interpretation Code 0-1 [facility] Phone: Basophils/100 WBC (Bld) 0.3 % 0-1 [facility] Work Phone: Eosinophils/100 leukocytes 0.9 % Invalid Interpretation Code 0-5 [facility] Work Phone: Eosinophils/100 WBC (Bld) 0.9 % 0-5 [facility] Work Phone: Erythrocyte distribution width Auto Ratio (RBC) 48.6 fL High 35.1-43.9 [facility] Work Phone: Erythrocyte distribution width Ratio (RBC) 48.6 fL High 35.1-43.9 [facility] Work Phone: Erythrocyte distribution width Ratio (RBC) 13.7 % 11.6-14.6 [facility] Work Phone: Erythrocytes (RBC) 4.23 10*6/uL Invalid Interpretation Code 4.2-5.4 [facility] Work Phone: Hematocrit (HCT) 41.2 % Invalid Interpretation Code 37-47 [facility] Work Phone: Hematocrit Volume Fraction (Bld) 41.2 % 37-47 [facility] Work Phone: Hemoglobin mass conc (Bld) 13.4 g/dL Invalid Interpretation Code 12.0-15.0 [facility] Work Phone: Immature granulocytes #/vol (Bld) 0.200 % Invalid Interpretation Code 0.0-0.9 [facility] Work Phone: immature granulocytes, percentage of total cells, blood 0.200 % Invalid Interpretation Code 0.0-0.9 [facility] Work Phone: Lymphocytes 1.52 X10 3/UL Invalid Interpretation Code 0.83-4.51 [facility] Work Phone: Lymphocytes #/vol (Bld) 1.52 X10 3/UL 0.83-4.51 [facility] Work Phone: Lymphocytes/100 leukocytes 25.9 % Invalid Interpretation Code 19-41 [facility] Work Phone: Lymphocytes/100 WBC (Bld) 25.9 % 19-41 [facility] Work Phone: MCH 31.7 pg Invalid Interpretation Code 27.0-32.0 [facility] Work Phone: MCH Entitic mass (RBC) 31.7 pg 27.0-32.0 [facility] Work Phone: MCHC 32.5 G/GL Invalid Interpretation Code 32-36 [facility] Work Phone: MCHC mass conc (RBC) 32.5 G/GL 32-36 [facility] Work Phone: MCV 97.4 fL Invalid Interpretation Code 81-99 [facility] Work Phone: MCV Entitic volume (RBC) 97.4 fL 81-99 [facility] Work Phone: Monocytes/100 leukocytes 6.5 % Invalid Interpretation Code 0-10 [facility] Work Phone: Monocytes/100 WBC (Bld) 6.5 % 0-10 [facility] Work Phone: neutrophil count, blood 3.9 X10 3/UL Invalid Interpretation Code 2.0-7.7 [facility] Work Phone: Neutrophils #/vol (Bld) 3.9 X10 3/UL 2.0-7.7 [facility] Work Phone: Neutrophils Auto #/vol (Bld) 3.9 X10 3/UL Invalid Interpretation Code 2.0-7.7 [facility] Work Phone: Neutrophils/100 leukocytes 66.2 % Invalid Interpretation Code 47-70 [facility] Work Phone: Neutrophils/100 WBC (Bld) 66.2 % 47-70 [facility] Work Phone: Platelet mean volume Entitic volume (Bld) 12.0 fL 6.2-12.0 [facility] Work Phone: Platelets 205 10*3/mm3 Invalid Interpretation Code 150-450 [facility] Work Phone: Platelets #/vol (Bld) 205 10*3/mm3 150-450 [facility] Work Phone: PMV by Caro 12.0 fL Invalid Interpretation Code 6.2-12.0 [facility] Work Phone: RBC #/vol (Bld) 4.23 10*6/uL 4.2-5.4 [facility] Work Phone: RDW-CA 13.7 % Invalid Interpretation Code 11.6-14.6 [facility] Work Phone: red blood cell distribution width, size density 48.6 fL High 35.1-43.9 [facility] Work Phone: WBC #/vol (Bld) 5.9 10*3/uL 4.4-11.0 [facility] Work Phone: WBC (Leukocytes) 5.9 10*3/uL Invalid Interpretation Code 4.4-11.0 [facility] Work Phone: Lab Report: ,Serum, hCG Quali.on 02-08-2015 HCG.beta subunit ( test) Ql Negative Invalid Interpretation Code 0-9 Nonpreg [facility] Work Phone: HCG.beta subunit Qn m[IU]/mL Invalid Interpretation Code =>Qualitat gaston [facility] Work Phone: Pathology Report: Cytology, Body Fluid / CSFon 07-28-2014 CYTOLOGY,BF/CSF SEE PATHOLOGY REPORT Invalid Interpretation Code [facility] Work Phone: GE use only - for [employer] import when terms are not otherwise specified SEE PATHOLOGY REPORT Invalid Interpretation Code [facility] Phone: Replaced Document: (P) Hepat itis ABC Profileon 06-07-2014 HAV IgM IA Qn (S) Negative Invalid Interpretation Code Negative [facility] Work Phone: HBV core Ab IA Qn (S) Negative Invalid Interpretation Code Negative [facility] Work Phone: Lab Report: (P) Urinalysis, Completeon 06-03-2014 Specific gravity Refractometry Relative Density (U) 1.010 Invalid Interpretation Code 1.002-1.03 0 [facility] Work Phone: Lab Report: CRPon 06-03-2014 C Reactive Protein, semiquantitative result < 2.90 Invalid Interpretation Code 0.0-3.0 [facility] Work Phone: C-REACTIVE PROT < 2.90 Invalid Interpretation Code 0.0-3.0 [facility] Work Phone: Lab Report: Comprehensive Me tabolic Profilon 06-03-2014 Albumin mass conc 4.2 g/dL Invalid Interpretation Code 3.4-5.0 [facility] Work Phone: Albumin/Globulin mass ratio 1.2 {ratio} Invalid Interpretation Code 0.9-2.4 [facility] Work Phone: Alkaline phosphatase (ALP) 44 U/L Critically low 50-136 [facility] Work Phone: ALP enzyme act/vol (Bld) 44 U/L Critically low 50-136 [facility] Work Phone: ALT enzyme act/vol 25 U/L Invalid Interpretation Code 12-78 [facility] Work Phone: Anion gap 6 mmol/L Invalid Interpretation Code 5-15 [facility] Work Phone: Anion gap 4 molar conc 6 Invalid Interpretation Code 5-15 [facility] Work Phone: Anion gap molar conc 6 mmol/L 5-15 [facility] Work Phone: AST enzyme act/vol 18 U/L Invalid Interpretation Code 15-37 [facility] Work Phone: Bilirubin mass conc 0.60 mg/dL Invalid Interpretation Code 0.00-4.00 [facility] Work Phone: Calcium mass conc 9.2 mg/dL Invalid Interpretation Code 8.5-10.1 [facility] Work Phone: Chloride molar conc 102 mmol/L Invalid Interpretation Code 98-107 [facility] Work Phone: CO2 30.0 mmol/L Invalid Interpretation Code 21.0-32.0 [facility] Work Phone: CO2 ppres (BldV) 30.0 mmol/L Invalid Interpretation Code 21.0-32.0 [facility] Work Phone: Creatinine mass conc 0.7 mg/dL Invalid Interpretation Code 0.6-1.0 [facility] Work Phone: eGFR (non-black) 115 mL/min/{1.73_m2} Invalid Interpretation Code >60 [facility] Work Phone: EST GFR - AA 115 mL/min Invalid Interpretation Code >60 [facility] Work Phone: GFR/1.73 sq M predicted among non-blacks MDRD vol rate/area (S/P/Bld) 95 mL/min/{1.73_m2} Invalid Interpretation Code >60 [facility] Work Phone: Globulin 3.5 g/dL Invalid Interpretation Code 2.7-4.2 [facility] Work Phone: Globulin mass conc (S) 3.5 g/dL 2.7-4.2 [facility] Work Phone: Glucose 82 mg/dL Invalid Interpretation Code 70-110 [facility] Work Phone: Glucose mass conc 82 mg/dL Invalid Interpretation Code 70-110 [facility] Work Phone: Potassium molar conc 3.7 mmol/L Invalid Interpretation Code 3.5-5.1 [facility] Work Phone: Protein mass conc 7.7 g/dL Invalid Interpretation Code 6.4-8.2 [facility] Work Phone: Sodium molar conc 138 mmol/L Invalid Interpretation Code 136-145 [facility] Work Phone: Urea nitrogen mass conc 9 mg/dL Invalid Interpretation Code 7-18 [facility] Work Phone: Urea nitrogen/Creatinine mass ratio 12.9 [facility]IO Invalid Interpretation Code 10-20 [facility] Work Phone: Lab Report: Erythrocyte Sed Rateon 06-03-2014 ESR Velocity (Bld) 3 mm/h Invalid Interpretation Code 0-20 [facility] Work Phone: Replaced Document: (P) CBC W /Diff, Automatedon 06-03-2014 Absolute Neut 6.5 X10 3/UL Invalid Interpretation Code 2.0-7.7 [facility] Work Phone: Absolute Neutrophil count 6.5 X10 3/UL Invalid Interpretation Code 2.0-7.7 [facility] Work Phone: Lymphocytes 1.76 X10 3/UL Invalid Interpretation Code 0.83-4.51 [facility] Work Phone: Lymphocytes #/vol (Bld) 1.76 X10 3/UL 0.83-4.51 [facility] Work Phone: Culture, urine Bacteria identified Cx Nom (U) Positive [facility] Work Phone: Vital Signs Date Time Vital Sign Value Performing Clinician Facility 11-03-2024 15:41-0400 Body height 160 cm Morgan Lanier MD Work Phone: [facility] 11-03-2024 15:41-0400 Body mass index (BMI) [Ratio] 23.91 kg/m2 Morgan Lanier MD Work Phone: [facility] 11-03-2024 15:41-0400 Body temperature 97.5 [degF] Morgan Lanier MD Work Phone: [facility] 11-03-2024 15:41-0400 Body weight 61.24 kg Morgan Lanier MD Work Phone: [facility] 11-03-2024 15:41-0400 Diastolic blood pressure 65 mm[Hg] Morgan Lanier MD Work Phone: [facility] 11-03-2024 15:41-0400 Heart rate 70 /min Morgan Lanier MD Work Phone: [facility] 11-03-2024 15:41-0400 Systolic blood pressure 109 mm[Hg] Morgan Lanier MD Work Phone: [facility] 09-20-2024 17:42-0400 Body temperature 98.3 [degF] Dr. Ruchi Wu MD Work Phone: [facility] 09-20-2024 17:42-0400 Diastolic blood pressure 82 mm[Hg] Dr. Ruchi Wu MD Work Phone: [facility] 09-20-2024 17:42-0400 Heart rate 71 /min Dr. Ruchi Wu MD Work Phone: [facility] 09-20-2024 17:42-0400 Respiratory rate 16 /min Dr. Ruchi Wu MD Work Phone: [facility] 09-20-2024 17:42-0400 SaO2% (BldA) [Mass fraction] 98 % Dr. Ruchi Wu MD Work Phone: [facility] 09-20-2024 17:42-0400 Systolic blood pressure 120 mm[Hg] Dr. Ruchi Wu MD Work Phone: [facility] 06-30-2024 14:36-0400 Body height 160 cm Morgan Lanier MD Work Phone: [facility] 06-30-2024 14:36-0400 Body mass index (BMI) [Ratio] 22.67 kg/m2 Morgan Lanier MD Work Phone: [facility] 06-30-2024 14:36-0400 Body temperature 97.7 [degF] Morgan Lanier MD Work Phone: [facility] 06-30-2024 14:36-0400 Body weight 58.06 kg Morgan Lanier MD Work Phone: [facility] 06-30-2024 14:36-0400 Diastolic blood pressure 63 mm[Hg] Morgan Lanier MD Work Phone: [facility] 06-30-2024 14:36-0400 Heart rate 71 /min Morgan Lanier MD Work Phone: [facility] 06-30-2024 14:36-0400 Systolic blood pressure 99 mm[Hg] Morgan Lanier MD Work Phone: [facility] 06-29-2024 10:02-0400 Body height 157.[address] Ruchi Wu MD Work Phone: [facility] 06-29-2024 10:02-0400 Body mass index (BMI) [Ratio] 23.3 kg/m2 Dr. Ruchi Wu MD Work Phone: [facility] 06-29-2024 10:02-0400 Body temperature 98 [degF] Dr. Ruchi Wu MD Work Phone: [facility] 06-29-2024 10:02-0400 Body weight 58.[address] Ruchi Wu MD Work Phone: [facility] 06-29-2024 10:02-0400 Diastolic blood pressure 80 mm[Hg] Dr. Ruchi Wu MD Work Phone: [facility] 06-29-2024 10:02-0400 Heart rate 74 /min Dr. Ruchi Wu MD Work Phone: [facility] 06-29-2024 10:02-0400 Respiratory rate 15 /min Dr. Ruchi Wu MD Work Phone: [facility] 06-29-2024 10:02-0400 SaO2% (BldA) [Mass fraction] 99 % Dr. Ruchi Wu MD Work Phone: [facility] 06-29-2024 10:02-0400 Systolic blood pressure 120 mm[Hg] Dr. Ruchi Wu MD Work Phone: [facility] 04-22-2024 08:05-0500 Body height 157.[address] Ruchi Wu MD Work Phone: [facility] 04-22-2024 08:05-0500 Body mass index (BMI) [Ratio] 22.6 kg/m2 Dr. Ruchi Wu MD Work Phone: [facility] 04-22-2024 08:05-0500 Body temperature 97.8 [degF] Dr. Ruchi Wu MD Work Phone: [facility] 04-22-2024 08:05-0500 Body weight 56.[address] Ruchi Wu MD Work Phone: [facility] 04-22-2024 08:05-0500 Diastolic blood pressure 80 mm[Hg] Dr. Ruchi Wu MD Work Phone: [facility] 04-22-2024 08:05-0500 Heart rate 94 /min Dr. Ruchi Wu MD Work Phone: [facility] 04-22-2024 08:05-0500 Respiratory rate 15 /min Dr. Ruchi Wu MD Work Phone: [facility] 04-22-2024 08:05-0500 SaO2% (BldA) [Mass fraction] 98 % Dr. Ruchi Wu MD Work Phone: [facility] 04-22-2024 08:05-0500 Systolic blood pressure 122 mm[Hg] Dr. Ruchi Wu MD Work Phone: [facility] 02-04-2024 15:42-0500 Body height 160 cm Morgan Lanier MD Work Phone: [facility] 02-04-2024 15:42-0500 Body mass index (BMI) [Ratio] 22.85 kg/m2 Morgan Lanier MD Work Phone: [facility] 02-04-2024 15:42-0500 Body temperature 97.5 [degF] Morgan Lanier MD Work Phone: [facility] 02-04-2024 15:42-0500 Body weight 58.51 kg Morgan Lanier MD Work Phone: [facility] 02-04-2024 15:42-0500 Diastolic blood pressure 67 mm[Hg] Morgan Lanier MD Work Phone: [facility] 02-04-2024 15:42-0500 Heart rate 74 /min Morgan Lanier MD Work Phone: [facility] 02-04-2024 15:42-0500 Systolic blood pressure 107 mm[Hg] Morgan Lanier MD Work Phone: [facility] 07-30-2023 13:04-0400 Body height 157.[address] Ruchi Wu Work Phone: [facility] 07-30-2023 13:04-0400 Body mass index (BMI) [Ratio] 24.5 kg/m2 Dr. Ruchi Wu Work Phone: [facility] 07-30-2023 13:04-0400 Body weight 60.[address] Ruchi Wu Work Phone: [facility] 07-30-2023 13:04-0400 Diastolic blood pressure 80 mm[Hg] Dr. Ruchi Wu Work Phone: [facility] 07-30-2023 13:04-0400 Heart rate 73 /min Dr. Ruchi Wu Work Phone: [facility] 07-30-2023 13:04-0400 Respiratory rate 17 /min Dr. Ruchi Wu Work Phone: [facility] 07-30-2023 13:04-0400 SaO2% (BldA) [Mass fraction] 98 % Dr. Ruchi Wu Work Phone: [facility] 07-30-2023 13:04-0400 Systolic blood pressure 120 mm[Hg] Dr. Ruchi Wu Work Phone: [facility] 06-11-2023 13:23-0400 Body height 157.[address] Ruchi Wu Work Phone: [facility] 06-11-2023 13:23-0400 Body mass index (BMI) [Ratio] 24.5 kg/m2 Dr. Ruchi Wu Work Phone: [facility] 06-11-2023 13:23-0400 Body temperature 98.2 [degF] Dr. Ruchi Wu Work Phone: [facility] 06-11-2023 13:23-0400 Body weight [address] Ruchi Wu Work Phone: [facility] 06-11-2023 13:23-0400 Diastolic blood pressure 60 mm[Hg] Dr. Ruchi Wu Work Phone: [facility] 06-11-2023 13:23-0400 Heart rate 83 /min Dr. Ruchi Wu Work Phone: [facility] 06-11-2023 13:23-0400 Respiratory rate 16 /min Dr. Ruchi Wu Work Phone: [facility] 06-11-2023 13:23-0400 SaO2% (BldA) [Mass fraction] 99 % Dr. Ruchi Wu Work Phone: [facility] 06-11-2023 13:23-0400 Systolic blood pressure 112 mm[Hg] Dr. Ruchi Wu Work Phone: [facility] 06-04-2023 15:01-0500 Body height 160 cm Morgan Lanier MD Work Phone: [facility] 06-04-2023 15:01-0500 Body mass index (BMI) [Ratio] 23.38 kg/m2 Morgan Lanier MD Work Phone: [facility] 06-04-2023 15:01-0500 Body temperature 97.11 [degF] Morgan Lanier MD Work Phone: [facility] 06-04-2023 15:01-0500 Body weight 59.88 kg Morgan Lanier MD Work Phone: [facility] 06-04-2023 15:01-0500 Diastolic blood pressure 70 mm[Hg] Morgan Lanier MD Work Phone: [facility] 06-04-2023 15:01-0500 Heart rate 66 /min Morgan Lanier MD Work Phone: [facility] 06-04-2023 15:01-0500 Systolic blood pressure 129 mm[Hg] Morgan Lanier MD Work Phone: [facility] 04-22-2023 08:00-0500 Body height 157.[address] Ruchi Wu Work Phone: [facility] 04-22-2023 08:00-0500 Body mass index (BMI) [Ratio] 24 kg/m2 Dr. Ruchi Wu Work Phone: [facility] 04-22-2023 08:00-0500 Body temperature 98.4 [degF] Dr. Ruchi Wu Work Phone: [facility] 04-22-2023 08:00-0500 Body weight 59.[address] Ruchi Wu Work Phone: [facility] 04-22-2023 08:00-0500 Diastolic blood pressure 60 mm[Hg] Dr. Ruchi Wu Work Phone: [facility] 04-22-2023 08:00-0500 Heart rate 85 /min Dr. Ruchi Wu Work Phone: [facility] 04-22-2023 08:00-0500 Respiratory rate 17 /min Dr. Ruchi Wu Work Phone: [facility] 04-22-2023 08:00-0500 SaO2% (BldA) [Mass fraction] 92 % Dr. Ruchi Wu Work Phone: [facility] 04-22-2023 08:00-0500 Systolic blood pressure 98 mm[Hg] Dr. Ruchi Wu Work Phone: [facility] 03-12-2023 14:21-0500 Body height 160 cm Morgan Lanier MD Work Phone: [facility] 03-12-2023 14:21-0500 Body mass index (BMI) [Ratio] 23.74 kg/m2 Morgan Lanier MD Work Phone: [facility] 03-12-2023 14:21-0500 Body temperature 97.81 [degF] Morgan Lanier MD Work Phone: [facility] 03-12-2023 14:21-0500 Body weight 60.78 kg Morgan Lanier MD Work Phone: [facility] 03-12-2023 14:21-0500 Diastolic blood pressure 67 mm[Hg] Morgan Lanier MD Work Phone: [facility] 03-12-2023 14:21-0500 Heart rate 73 /min Morgan Lanier MD Work Phone: [facility] 03-12-2023 14:21-0500 Systolic blood pressure 117 mm[Hg] Morgan Lanier MD Work Phone: [facility] 12-11-2022 14:47-0400 Body height 157.[address] Ruchi Wu Work Phone: [facility] 12-11-2022 14:47-0400 Body mass index (BMI) [Ratio] 23.6 kg/m2 Dr. Ruchi Wu Work Phone: [facility] 12-11-2022 14:47-0400 Body temperature 97.3 [degF] Dr. Ruchi Wu Work Phone: [facility] 12-11-2022 14:47-0400 Body weight 58.[address] Ruchi Wu Work Phone: [facility] 12-11-2022 14:47-0400 Diastolic blood pressure 78 mm[Hg] Dr. Ruchi Wu Work Phone: [facility] 12-11-2022 14:47-0400 Heart rate 76 /min Dr. Ruchi Wu Work Phone: [facility] 12-11-2022 14:47-0400 Respiratory rate 16 /min Dr. Ruchi Wu Work Phone: [facility] 12-11-2022 14:47-0400 SaO2% (BldA) [Mass fraction] 98 % Dr. Ruchi Wu Work Phone: [facility] 12-11-2022 14:47-0400 Systolic blood pressure 110 mm[Hg] Dr. Ruchi Wu Work Phone: [facility] 12-04-2022 15:11-0400 Body height 160.02 cm Ruchi Wu Work Phone: [facility] Work Phone: 12-04-2022 15:11-0400 Body mass index (BMI) [Ratio] 22.5 kg/m2 Efewongbe B Oleghe Work Phone: QA-Zwamzbezxrrp-Sx [facility] Work Phone: 12-04-2022 15:11-0400 Body surface area Derived from formula 1.59 m2 Efewongbe B Oleghe Work Phone: OW-Khrxwbgloqzx-Pw [facility] Work Phone: 12-04-2022 15:11-0400 Body temperature 97.5 [degF] Efewongbe B Oleghe Work Phone: DB-Trutduoxfqvm-Ea [facility] Work Phone: 12-04-2022 15:11-0400 Body weight 57.61 kg Efewongbe B Oleghe Work Phone: UJ-Ndelxjpifhac-Vy [facility] Work Phone: 12-04-2022 15:11-0400 Diastolic blood pressure 68 mm[Hg] Efewongbe B Oleghe Work Phone: MA-Wqdnshktpqah-Wn [facility] Work Phone: 12-04-2022 15:11-0400 Heart rate 73 /min Efewongbe B Oleghe Work Phone: GC-Donwobtwkvwg-Bw [facility] Work Phone: 12-04-2022 15:11-0400 Systolic blood pressure 105 mm[Hg] Efewongbe B Oleghe Work Phone: SG-Fzjlweyvqzjg-Wq [facility] Work Phone: 12-04-2022 15:11-0400 4 1 Efewongbe B Oleghe Work Phone: HD-Cmewitsxdoau-Ox [facility] Work Phone: Comment on above: [employer] 11-18-2022 10:33-0400 Body height 157.[address] Ruchi Wu Work Phone: [facility] 11-18-2022 10:33-0400 Body mass index (BMI) [Ratio] 23.6 kg/m2 Dr. Ruchi Wu Work Phone: [facility] 11-18-2022 10:33-0400 Body weight 58.[address] Ruchi Wu Work Phone: [facility] 10-22-2022 14:20-0400 Body temperature 97.1 [degF] Dr. Ruchi Wu Work Phone: [facility] 10-22-2022 14:20-0400 Diastolic blood pressure 70 mm[Hg] Dr. Ruchi Wu Work Phone: [facility] 10-22-2022 14:20-0400 Heart rate 61 /min Dr. Ruchi Wu Work Phone: [facility] 10-22-2022 14:20-0400 Respiratory rate 16 /min Dr. Ruchi Wu Work Phone: [facility] 10-22-2022 14:20-0400 SaO2% (BldA) [Mass fraction] 97 % Dr. Ruchi Wu Work Phone: [facility] 10-22-2022 14:20-0400 Systolic blood pressure 119 mm[Hg] Dr. Ruchi Wu Work Phone: [facility] 10-22-2022 12:33-0400 Body height 157.[address] Ruchi Wu Work Phone: [facility] 10-22-2022 12:33-0400 Body mass index (BMI) [Ratio] 22.7 kg/m2 Dr. Ruchi Wu Work Phone: [facility] 10-22-2022 12:33-0400 Body weight 56.[address] Ruchi Wu Work Phone: [facility] 10-22-2022 08:00-0400 Body mass index (BMI) [Ratio] 22.9 kg/m2 Dr. Ruchi Wu Work Phone: [facility] 10-22-2022 08:00-0400 Body temperature 97.6 [degF] Dr. Ruchi Wu Work Phone: [facility] 10-22-2022 08:00-0400 Body weight 56.[address] Ruchi Wu Work Phone: [facility] 10-22-2022 08:00-0400 Diastolic blood pressure 72 mm[Hg] Dr. Ruchi Wu Work Phone: [facility] 10-22-2022 08:00-0400 Heart rate 78 /min Dr. Ruchi Wu Work Phone: [facility] 10-22-2022 08:00-0400 Respiratory rate 16 /min Dr. Ruchi Wu Work Phone: [facility] 10-22-2022 08:00-0400 SaO2% (BldA) [Mass fraction] 97 % Dr. Ruchi Wu Work Phone: [facility] 10-22-2022 08:00-0400 Systolic blood pressure 102 mm[Hg] Dr. Ruchi Wu Work Phone: [facility] 10-16-2022 16:21-0400 Body mass index (BMI) [Ratio] 23.1 kg/m2 Dr. Ruchi Wu Work Phone: [facility] 10-16-2022 16:21-0400 Body weight 57.[address] Ruchi Wu Work Phone: [facility] 10-16-2022 16:21-0400 Diastolic blood pressure 73 mm[Hg] Dr. Ruchi Wu Work Phone: [facility] 10-16-2022 16:21-0400 Systolic blood pressure 115 mm[Hg] Dr. Ruchi Wu Work Phone: [facility] 09-11-2022 14:55-0400 Body height 157.[address] Ruchi Wu Work Phone: [facility] 09-11-2022 14:55-0400 Body mass index (BMI) [Ratio] 22.7 kg/m2 Dr. Ruchi Wu Work Phone: [facility] 09-11-2022 14:55-0400 Body weight 56.[address] Ruchi Wu Work Phone: [facility] 09-11-2022 14:55-0400 Diastolic blood pressure 68 mm[Hg] Dr. Ruchi Wu Work Phone: [facility] 09-11-2022 14:55-0400 Systolic blood pressure 113 mm[Hg] Dr. Ruchi Wu Work Phone: [facility] 08-07-2022 15:02-0400 Body height 160.02 cm Ruchi Wu Work Phone: TS-Omihuswhpgkv-Ro [facility] Work Phone: 08-07-2022 15:02-0400 Body mass index (BMI) [Ratio] 22.32 kg/m2 Ruchi Wu Work Phone: SB-Eepvlacwbmkv-Vs [place] Work Phone: 08-07-2022 15:02-0400 Body surface area Derived from formula 1.59 m2 Ruchi Hille Work Phone: GE-Ceuiujvysdgh-Fr [place] Work Phone: 08-07-2022 15:02-0400 Body temperature 97.5 [degF] Ruchi Wu Work Phone: ND-Smgfusqmciaa-Ws [place] Work Phone: 08-07-2022 15:02-0400 Body weight 57.15 kg Efdamarisbe B Oleghe Work Phone: PO-Vvntcuwlbxth-Ph [place] Work Phone: 08-07-2022 15:02-0400 Diastolic blood pressure 70 mm[Hg] Efkayliealexusbe B Oleghe Work Phone: FC-Ggislpbcrjry-Lk [place] Work Phone: 08-07-2022 15:02-0400 Heart rate 81 /min Cassibe B Olemonicae Work Phone: RB-Racttrjvwapp-Zh [place] Work Phone: 08-07-2022 15:02-0400 Systolic blood pressure 107 mm[Hg] Ruchi Hammond Olemonicae Work Phone: HW[facility]Ejcazzonwyny-[facility]d [facility] Work Phone: 08-07-2022 15:02-0400 4 1 Ruchi Hille Work Phone: QJ-Xpznrhpyippc-Ri [facility] Work Phone: Comment on above: [employer] 07-12-2022 11:04-0400 Body temperature 98 [degF] Dr. Ruchi Wu Work Phone: [facility] 07-12-2022 11:04-0400 Diastolic blood pressure 60 mm[Hg] Dr. Ruchi Wu Work Phone: [facility] 07-12-2022 11:04-0400 Heart rate 78 /min Dr. Ruchi Wu Work Phone: [facility] 07-12-2022 11:04-0400 Respiratory rate 16 /min Dr. Ruchi Wu Work Phone: [facility] 07-12-2022 11:04-0400 SaO2% (BldA) [Mass fraction] 98 % Dr. Ruchi Wu Work Phone: [facility] 07-12-2022 11:04-0400 Systolic blood pressure 90 mm[Hg] Dr. Ruchi Wu Work Phone: [facility] 06-25-2022 16:33-0400 Body height 160.02 cm Efgely De La Cruzmonicaifeoma Work Phone: KR-Knculndotabb-Hi [facility] [address] Work Phone: 06-25-2022 16:33-0400 Body mass index (BMI) [Ratio] 20.37 kg/m2 Efgely De La Cruznoemi Work Phone: GZ-Silprkhsblfe-Nl [facility] [address] Work Phone: 06-25-2022 16:33-0400 Body surface area Derived from formula 1.53 m2 Efgely De La Cruznoemi Work Phone: NV-Sjcvdrrzcjxx-Tv [facility] [address] Work Phone: 06-25-2022 16:33-0400 Body temperature 97.1 [degF] Efgely De La Cruznoemi Work Phone: LE-Fpkqcpvrpfhi-Am agrin [facility] [address] Work Phone: 06-25-2022 16:33-0400 Body weight 52.16 kg Ruchi De La Cruznoemi Work Phone: KU-Aykwjsqvxlnm-Gg [facility] [address] Work Phone: 06-25-2022 16:33-0400 Diastolic blood pressure 75 mm[Hg] Ruchi De La Cruznoemi Work Phone: MQ-Ddtswalroozy-Es [facility] [address] Work Phone: 06-25-2022 16:33-0400 Heart rate 71 /min Efewongbe B Olemonicaifeoma Work Phone: GH-Zsjigtlopwai-Ig [facility] [address] Work Phone: 06-25-2022 16:33-0400 Systolic blood pressure 112 mm[Hg] Ruchi De La Cruzmonicaifeoma Work Phone: ER-Irjctslqgnbf-Ps [facility] [address] Work Phone: 06-25-2022 10:00-0400 Body height 157.[address] Ruchi Wu Work Phone: [facility] 06-25-2022 10:00-0400 Body mass index (BMI) [Ratio] 20.9 kg/m2 Dr. Ruchi Wu Work Phone: [facility] 06-25-2022 10:00-0400 Body temperature 97.8 [degF] Dr. Ruchi Wu Work Phone: [facility] 06-25-2022 10:00-0400 Body weight 51.[address] Ruchi Wu Work Phone: [facility] 06-25-2022 10:00-0400 Diastolic blood pressure 80 mm[Hg] Dr. Ruchi Wu Work Phone: [facility] 06-25-2022 10:00-0400 Heart rate 88 /min Dr. Ruchi Wu Work Phone: [facility] 06-25-2022 10:00-0400 Respiratory rate 16 /min Dr. Ruchi Wu Work Phone: [facility] 06-25-2022 10:00-0400 SaO2% (BldA) [Mass fraction] 98 % Dr. Ruchi Wu Work Phone: [facility] 06-25-2022 10:00-0400 Systolic blood pressure 118 mm[Hg] Dr. Ruchi Wu Work Phone: [facility] 05-01-2022 15:29-0500 Body height 157.[address] Ruchi Wu Work Phone: [facility] 05-01-2022 15:29-0500 Body mass index (BMI) [Ratio] 21.2 kg/m2 Dr. Ruchi Wu Work Phone: [facility] 05-01-2022 15:29-0500 Body temperature 97 [degF] Dr. Ruchi Wu Work Phone: [facility] 05-01-2022 15:29-0500 Body weight 52.[address] Ruchi Wu Work Phone: [facility] 05-01-2022 15:29-0500 Diastolic blood pressure 84 mm[Hg] Dr. Ruchi Wu Work Phone: [facility] 05-01-2022 15:29-0500 Heart rate 68 /min Dr. Ruchi Wu Work Phone: [facility] 05-01-2022 15:29-0500 Respiratory rate 16 /min Dr. Ruchi Wu Work Phone: [facility] 05-01-2022 15:29-0500 SaO2% (BldA) [Mass fraction] 99 % Dr. Ruchi Wu Work Phone: [facility] 05-01-2022 15:29-0500 Systolic blood pressure 110 mm[Hg] Dr. Ruchi Wu Work Phone: [facility] 04-02-2022 08:25-0500 Body temperature 98.2 [degF] Dr. Ruchi Wu Work Phone: [facility] 04-02-2022 08:25-0500 Diastolic blood pressure 72 mm[Hg] Dr. Ruchi Wu Work Phone: [facility] 04-02-2022 08:25-0500 Heart rate 60 /min Dr. Ruchi Wu Work Phone: [facility] 04-02-2022 08:25-0500 Respiratory rate 14 /min Dr. Ruchi Wu Work Phone: [facility] 04-02-2022 08:25-0500 SaO2% (BldA) [Mass fraction] 99 % Dr. Ruchi Wu Work Phone: [facility] 04-02-2022 08:25-0500 Systolic blood pressure 108 mm[Hg] Dr. Ruchi Wu Work Phone: [facility] 03-27-2022 13:30-0500 Body temperature 97.5 [degF] Dr. Ruchi Wu Work Phone: [facility] 03-27-2022 13:30-0500 Body weight 54.[address] Ruchi Wu Work Phone: [facility] 03-27-2022 13:30-0500 Diastolic blood pressure 76 mm[Hg] Dr. Ruchi Wu Work Phone: [facility] 03-27-2022 13:30-0500 Heart rate 68 /min Dr. Ruchi Wu Work Phone: [facility] 03-27-2022 13:30-0500 Respiratory rate 16 /min Dr. Ruchi Wu Work Phone: [facility] 03-27-2022 13:30-0500 SaO2% (BldA) [Mass fraction] 98 % Dr. Ruchi Wu Work Phone: [facility] 03-27-2022 13:30-0500 Systolic blood pressure 122 mm[Hg] Dr. Ruchi Wu Work Phone: [facility] 01-16-2022 14:36-0400 Body height 160.02 cm Efewongbe B Oleghe Work Phone: OD-Jqcrkfbdfddy-Xw [place] Work Phone: 01-16-2022 14:36-0400 Body mass index (BMI) [Ratio] 22.14 kg/m2 Efewongbe B Oleghe Work Phone: SY-Ticnjdwlmfuv-Sz [place] Work Phone: 01-16-2022 14:36-0400 Body surface area Derived from formula 1.58 m2 Efewongbe B Oleghe Work Phone: YC-Ezvobdkfgcul-Nn [place] Work Phone: 01-16-2022 14:36-0400 Body temperature 96.9 [degF] Efewongbe B Oleghe Work Phone: ZD-Uwwkouvazqzn-Bz [place] Work Phone: 01-16-2022 14:36-0400 Body weight 56.7 kg Efewongbe B Oleghe Work Phone: KG-Smngwlixhonu-Iu [place] Work Phone: 01-16-2022 14:36-0400 Diastolic blood pressure 74 mm[Hg] Efewongbe B Oleghe Work Phone: CU-Zpjatrbaulzy-Sm [place] Work Phone: 01-16-2022 14:36-0400 Heart rate 76 /min Efewongbe B Oleghe Work Phone: BT-Uxwbprghvysu-Yk [place] Work Phone: 01-16-2022 14:36-0400 Systolic blood pressure 110 mm[Hg] Efewongbe B Oleghe Work Phone: AE-Doznjowkwijo-Ai [place] Work Phone: 01-16-2022 14:36-0400 4 1 Efewongbe B Oleghe Work Phone: WU-Kquvmhdsrwin-Cc [place] Work Phone: Comment on above: [employer] 12-26-2021 13:06-0400 Body height 157.[address] Ruchi Wu Work Phone: [facility] Work Phone: 12-26-2021 13:06-0400 Body mass index (BMI) [Ratio] 23.8 kg/m2 Dr. Ruchi Wu Work Phone: [facility] Work Phone: 12-26-2021 13:06-0400 Body temperature 97.1 [degF] Dr. Ruchi Wu Work Phone: [facility] Work Phone: 12-26-2021 13:06-0400 Body weight 58.[address] Ruchi Wu Work Phone: [facility] Work Phone: 12-26-2021 13:06-0400 Diastolic blood pressure 64 mm[Hg] Dr. Ruchi Wu Work Phone: [facility] Work Phone: 12-26-2021 13:06-0400 Heart rate 62 /min Dr. Ruchi Wu Work Phone: [facility] Work Phone: 12-26-2021 13:06-0400 Respiratory rate 14 /min Dr. Ruchi Wu Work Phone: [facility] Work Phone: 12-26-2021 13:06-0400 SaO2% (BldA) [Mass fraction] 99 % Dr. Ruchi Wu Work Phone: [facility] Work Phone: 12-26-2021 13:06-0400 Systolic blood pressure 102 mm[Hg] Dr. Ruchi Wu Work Phone: [facility] Work Phone: 12-24-2021 17:20-0400 Body temperature 97.7 [degF] Dr. Ruchi Wu Work Phone: [facility] Work Phone: 12-24-2021 17:20-0400 Diastolic blood pressure 64 mm[Hg] Dr. Ruchi Wu Work Phone: [facility] Work Phone: 12-24-2021 17:20-0400 Heart rate 72 /min Dr. Ruchi Wu Work Phone: [facility] Work Phone: 12-24-2021 17:20-0400 Respiratory rate 14 /min Dr. Ruchi Wu Work Phone: [facility] Work Phone: 12-24-2021 17:20-0400 SaO2% (BldA) [Mass fraction] 99 % Dr. Ruchi Wu Work Phone: [facility] Work Phone: 12-24-2021 17:20-0400 Systolic blood pressure 108 mm[Hg] Dr. Ruchi Wu Work Phone: [facility] Work Phone: 12-17-2021 16:35-0400 Body height 160.02 cm Ruchi Wu Work Phone: VP-Urfdajluy-Iloar ield 201 Work Phone: 12-17-2021 16:35-0400 Body mass index (BMI) [Ratio] 22.14 kg/m2 Ruchi Wu Work Phone: KV-Owuizyapk-Vaswd ield 201 Work Phone: 12-17-2021 16:35-0400 Body surface area Derived from formula 1.58 m2 Ruchi Wu Work Phone: NX-Ibeyypdkr-Upccu ield 201 Work Phone: 12-17-2021 16:35-0400 Body temperature 96.4 [degF] Ruchi Hammond Lize Work Phone: PY-Ngawyqjaq-Jtysp ield 201 Work Phone: 12-17-2021 16:35-0400 Body weight 56.7 kg Efgely Hammond Olemonicae Work Phone: BB-Kqkgzuogl-Wrjjo ield 201 Work Phone: 12-17-2021 16:35-0400 Diastolic blood pressure 72 mm[Hg] Efdamarisbe Stephany Olemonicae Work Phone: ZQ-Swdhotwgs-Wsbni ield 201 Work Phone: 12-17-2021 16:35-0400 Heart rate 63 /min Efgely Hammond Lize Work Phone: SR-Fguqbwuts-Ptsvf ield 201 Work Phone: 12-17-2021 16:35-0400 SaO2% (BldA) [Mass fraction] 98 % Efgely Hammond Lize Work Phone: GC-Wmmcdhiha-Xwsty ield 201 Work Phone: 12-17-2021 16:35-0400 Systolic blood pressure 118 mm[Hg] Ruchi De La Cruzmonicae Work Phone: KW-Gniviwusz-Zasiz ield 201 Work Phone: 11-12-2021 08:23-0400 Body temperature 98.1 [degF] Dr. Ruchi Wu Work Phone: [facility] Work Phone: 11-12-2021 08:23-0400 Diastolic blood pressure 68 mm[Hg] Dr. Ruchi Wu Work Phone: [facility] Work Phone: 11-12-2021 08:23-0400 Heart rate 65 /min Dr. Ruchi Wu Work Phone: [facility] Work Phone: 11-12-2021 08:23-0400 Respiratory rate 16 /min Dr. Ruchi Wu Work Phone: [facility] Work Phone: 11-12-2021 08:23-0400 SaO2% (BldA) [Mass fraction] 100 % Dr. Ruchi Wu Work Phone: [facility] Work Phone: 11-12-2021 08:23-0400 Systolic blood pressure 105 mm[Hg] Dr. Ruchi Wu Work Phone: [facility] Work Phone: 11-12-2021 07:01-0400 Body height 157.[address] Ruchi Wu Work Phone: [facility] Work Phone: 11-12-2021 07:01-0400 Body mass index (BMI) [Ratio] 23.9 kg/m2 Dr. Ruchi Wu Work Phone: [facility] Work Phone: 11-12-2021 07:01-0400 Body weight 59.[address] Ruchi Wu Work Phone: [facility] Work Phone: 10-02-2021 15:48-0400 Body height 157.48 cm Ruchi De La CruzmonicaGERS Work Phone: TI-Tfuvfdbkmwnd-Rp effield 201 DO Work Phone: 10-02-2021 15:48-0400 Body mass index (BMI) [Ratio] 25.81 kg/m2 Ruchi De La [employer] Work Phone: BZ-Izhinadpcmdj-Hy effield 201 DO Work Phone: 10-02-2021 15:48-0400 Body surface area Derived from formula 1.65 m2 Efewongbe B Oleghe Work Phone: IJ-Wkaiytlmlclc-Fe effield 201 DO Work Phone: 10-02-2021 15:48-0400 Body temperature 97.2 [degF] Efewongbe B Oleghe Work Phone: AE-Jobpqgjqcyxw-Uc effield 201 DO Work Phone: 10-02-2021 15:48-0400 Body weight 64.02 kg Efewongbe B Oleghe Work Phone: ZE-Toqycskerpde-Rd effield 201 DO Work Phone: 10-02-2021 15:48-0400 Diastolic blood pressure 78 mm[Hg] Efewongbe B Oleghe Work Phone: BT-Oaguaazitifb-Ra effield 201 DO Work Phone: 10-02-2021 15:48-0400 Heart rate 70 /min Efewongbe B Oleghe Work Phone: AM-Hhhjtethiewn-Af effield 201 DO Work Phone: 10-02-2021 15:48-0400 Respiratory rate 16 /min Efewongbe B Oleghe Work Phone: TB-Vfxtmtswnfwv-Km effield 201 DO Work Phone: 10-02-2021 15:48-0400 SaO2% (BldA) [Mass fraction] 98 % Efewongbe B Oleghe Work Phone: HL-Ltdxsejtguzg-Hi effield 201 DO Work Phone: 10-02-2021 15:48-0400 Systolic blood pressure 112 mm[Hg] Efewongbe B Oleghe Work Phone: DF-Dthivkmlwhpl-Zw effield 201 DO Work Phone: 09-19-2021 13:26-0400 Body height 160.[address] Ruchi Wu Work Phone: [facility] Work Phone: 09-19-2021 13:26-0400 Body mass index (BMI) [Ratio] 25 kg/m2 Dr. Ruchi Wu Work Phone: [facility] Work Phone: 09-19-2021 13:26-0400 Body temperature 98.9 [degF] Dr. Ruchi Wu Work Phone: [facility] Work Phone: 09-19-2021 13:26-0400 Body weight 63.[address] Ruchi Wu Work Phone: [facility] Work Phone: 09-19-2021 13:26-0400 Diastolic blood pressure 66 mm[Hg] Dr. Ruchi Wu Work Phone: [facility] Work Phone: 09-19-2021 13:26-0400 Heart rate 71 /min Dr. Ruchi Wu Work Phone: [facility] Work Phone: 09-19-2021 13:26-0400 Respiratory rate 14 /min Dr. Ruchi Wu Work Phone: [facility] Work Phone: 09-19-2021 13:26-0400 SaO2% (BldA) [Mass fraction] 97 % Dr. Ruchi Wu Work Phone: [facility] Work Phone: 09-19-2021 13:26-0400 Systolic blood pressure 110 mm[Hg] Dr. Ruchi Wu Work Phone: [facility] Work Phone: 09-05-2021 14:42-0400 Body height 160.[address] Fabián Ruiz Work Phone: [facility] Work Phone: 09-05-2021 14:42-0400 Body mass index (BMI) [Ratio] 24.7 kg/m2 Dr. Fabián Ruiz Work Phone: [facility] Work Phone: 09-05-2021 14:42-0400 Body weight 63.[address] Fabián Ruiz Work Phone: [facility] Work Phone: 09-05-2021 14:42-0400 Diastolic blood pressure 76 mm[Hg] Dr. Fabián Ruiz Work Phone: [facility] Work Phone: 09-05-2021 14:42-0400 Systolic blood pressure 115 mm[Hg] Dr. Fabián Ruiz Work Phone: [facility] Work Phone: 09-05-2021 14:42-0400 Body height 160.[address] Fabián Ruiz Work Phone: [facility] Work Phone: 09-05-2021 14:42-0400 Body mass index (BMI) [Ratio] 24.7 kg/m2 Dr. Fabián Ruiz Work Phone: [facility] Work Phone: 09-05-2021 14:42-0400 Body weight 63.[address] Fabián Ruiz Work Phone: [facility] Work Phone: 09-05-2021 14:42-0400 Diastolic blood pressure 76 mm[Hg] Dr. Fabián Ruiz Work Phone: [facility] Work Phone: 09-05-2021 14:42-0400 Systolic blood pressure 115 mm[Hg] Dr. Fabián Ruiz Work Phone: [facility] Work Phone: 08-31-2021 16:56-0400 Body mass index (BMI) [Ratio] 25.1 kg/m2 Dr. Fabián Ruiz Work Phone: [facility] Work Phone: 08-31-2021 16:56-0400 Body weight 64.[address] Fabián Ruiz Work Phone: [facility] Work Phone: 08-31-2021 16:56-0400 Diastolic blood pressure 68 mm[Hg] Dr. Fabián Ruiz Work Phone: [facility] Work Phone: 08-31-2021 16:56-0400 Heart rate 68 /min Dr. Fabián Ruiz Work Phone: [facility] Work Phone: 08-31-2021 16:56-0400 Respiratory rate 16 /min Dr. Fabián Ruiz Work Phone: [facility] Work Phone: 08-31-2021 16:56-0400 SaO2% (BldA) [Mass fraction] 98 % Dr. Fabián Ruiz Work Phone: [facility] Work Phone: 08-31-2021 16:56-0400 Systolic blood pressure 126 mm[Hg] Dr. Fabián Ruiz Work Phone: [facility] Work Phone: 08-31-2021 16:56-0400 Body mass index (BMI) [Ratio] 25.1 kg/m2 Dr. Fabián Ruiz Work Phone: [facility] Work Phone: 08-31-2021 16:56-0400 Body weight 64.[address] Fabián Ruiz Work Phone: [facility] Work Phone: 08-31-2021 16:56-0400 Diastolic blood pressure 68 mm[Hg] Dr. Fabián Ruiz Work Phone: [facility] Work Phone: 08-31-2021 16:56-0400 Heart rate 68 /min Dr. Fabián Ruiz Work Phone: [facility] Work Phone: 08-31-2021 16:56-0400 Respiratory rate 16 /min Dr. Fabián Ruiz Work Phone: [facility] Work Phone: 08-31-2021 16:56-0400 SaO2% (BldA) [Mass fraction] 98 % Dr. Fabián Ruiz Work Phone: [facility] Work Phone: 08-31-2021 16:56-0400 Systolic blood pressure 126 mm[Hg] Dr. Fabián Ruiz Work Phone: [facility] Work Phone: 07-18-2021 16:09-0400 Body height 157.48 cm Efkalideaongbe B [employer] Work Phone: IR-Mkpuilvlbhxw-Lw min [employer] Work Phone: 07-18-2021 16:09-0400 Body mass index (BMI) [Ratio] 25.61 kg/m2 Efkalideaongbe B Ret[employer]lye Work Phone: BO-Cfzgprmjevev-Qs min [employer] Work Phone: 07-18-2021 16:09-0400 Body surface area Derived from formula 1.64 m2 Efewongbe B Retargetlye Work Phone: PN-Lfamvzmydkmf-Am min [employer] Work Phone: 07-18-2021 16:09-0400 Body temperature 98.1 [degF] Efewongbe B Oleghe Work Phone: PZ-Mrsqsirgoijr-Hu min [employer] Work Phone: 07-18-2021 16:09-0400 Body weight 63.5 kg Efewongbe B Olemonicae Work Phone: LO-Wjogtkrplwbs-Mp min [employer] Work Phone: 07-18-2021 16:09-0400 Diastolic blood pressure 71 mm[Hg] Efewongbe B Olemonicae Work Phone: AG-Ikfqwyhrzvmu-Hs min [employer] Work Phone: 07-18-2021 16:09-0400 Heart rate 86 /min Efewongbe B Olemonicae Work Phone: FW-Bfqddxvkqkns-Kq min [place] Work Phone: 07-18-2021 16:09-0400 Systolic blood pressure 106 mm[Hg] Efewongbe B Oleghe Work Phone: HZ-Bpufnqmaeqns-Pa min [place] Work Phone: 07-18-2021 16:09-0400 0 1 Efkalideaongbe B Olemonicae Work Phone: NA-Aenfektngvbv-Os min [place] Work Phone: Comment on above: [employer] 07-09-2021 16:01-0400 Body mass index (BMI) [Ratio] 25.42 kg/m2 Fabián Ruiz Work Phone: RL-Kpznssgik-Rdxjt in [facility] [address] Work Phone: 07-09-2021 16:01-0400 Body surface area Derived from formula 1.64 m2 Fabián Caputoman Work Phone: UW-Oueltohgw-Hqhts in [facility] [address] Work Phone: 07-09-2021 16:01-0400 Body weight 63.05 kg Fabián Caputoman Work Phone: PN-Svmlmzxym-Oyzjx in [facility] [address] Work Phone: 07-09-2021 16:01-0400 Diastolic blood pressure 67 mm[Hg] Fabián Ruiz Work Phone: MP-Pucdpqnzy-Hvzrk in [facility] [address] Work Phone: 07-09-2021 16:01-0400 Heart rate 67 /min Fabián Ruiz Work Phone: UJ-Hqahlwwxi-Afcxo in [facility] [address] Work Phone: 07-09-2021 16:01-0400 Respiratory rate 18 /min Fabián Ruiz Work Phone: UU-Qwbppqmgv-Xjdgq in [facility] [address] Work Phone: 07-09-2021 16:01-0400 Systolic blood pressure 115 mm[Hg] Fabián Ruiz Work Phone: PE-Ozqacvlxq-Jiwyz in [facility] [address] Work Phone: 07-09-2021 16:01-0400 2 1 Fabián Ruiz Work Phone: YN-Bumvdtqhx-Rabtj in [facility] [address] Work Phone: Comment on above: [employer] 06-06-2021 19:29-0500 SaO2% (BldA) [Mass fraction] 97 % Dr. Fabián Ruiz Work Phone: [facility] Work Phone: 06-06-2021 19:22-0500 Body mass index (BMI) [Ratio] 24 kg/m2 Dr. Fabián Ruiz Work Phone: [facility] Work Phone: 06-06-2021 19:22-0500 Body temperature 97 [degF] Dr. Fabián Ruiz Work Phone: [facility] Work Phone: 06-06-2021 19:22-0500 Body weight 61.[address] Fabián Ruiz Work Phone: [facility] Work Phone: 06-06-2021 19:22-0500 Diastolic blood pressure 48 mm[Hg] Dr. Fabián Ruiz Work Phone: [facility] Work Phone: 06-06-2021 19:22-0500 Heart rate 68 /min Dr. Fabián Ruiz Work Phone: [facility] Work Phone: 06-06-2021 19:22-0500 Respiratory rate 18 /min Dr. Fabián Ruiz Work Phone: [facility] Work Phone: 06-06-2021 19:22-0500 Systolic blood pressure 135 mm[Hg] Dr. Fabián Ruiz Work Phone: [facility] Work Phone: 06-06-2021 18:29-0500 SaO2% (BldA) [Mass fraction] 97 % Dr. Fabián Ruiz Work Phone: [facility] Work Phone: 06-06-2021 18:22-0500 Body height 160.[address] Fabián Ruiz Work Phone: [facility] Work Phone: 06-06-2021 18:22-0500 Body mass index (BMI) [Ratio] 24 kg/m2 Dr. Fabián Ruiz Work Phone: [facility] Work Phone: 06-06-2021 18:22-0500 Body temperature 97 [degF] Dr. Fabián Ruiz Work Phone: [facility] Work Phone: 06-06-2021 18:22-0500 Body weight 61.[address] Fabián Ruiz Work Phone: [facility] Work Phone: 06-06-2021 18:22-0500 Diastolic blood pressure 48 mm[Hg] Dr. Fabián Ruiz Work Phone: [facility] Work Phone: 06-06-2021 18:22-0500 Heart rate 68 /min Dr. Fabián Ruiz Work Phone: [facility] Work Phone: 06-06-2021 18:22-0500 Respiratory rate 18 /min Dr. Fabián Ruiz Work Phone: [facility] Work Phone: 06-06-2021 18:22-0500 Systolic blood pressure 135 mm[Hg] Dr. Fabián Ruiz Work Phone: [facility] Work Phone: 06-06-2021 13:31-0500 Body mass index (BMI) [Ratio] 24 kg/m2 Dr. Fabián Ruiz Work Phone: [facility] Work Phone: 06-06-2021 13:31-0500 Body temperature 97.1 [degF] Dr. Fabián Ruiz Work Phone: [facility] Work Phone: 06-06-2021 13:31-0500 Body weight 61.[address] Fabián Ruiz Work Phone: [facility] Work Phone: 06-06-2021 13:31-0500 Diastolic blood pressure 80 mm[Hg] Dr. Fabián Ruiz Work Phone: [facility] Work Phone: 06-06-2021 13:31-0500 Heart rate 68 /min Dr. Fabián Ruiz Work Phone: [facility] Work Phone: 06-06-2021 13:31-0500 Respiratory rate 16 /min Dr. Fabián Ruiz Work Phone: [facility] Work Phone: 06-06-2021 13:31-0500 SaO2% (BldA) [Mass fraction] 99 % Dr. Fabián Ruiz Work Phone: [facility] Work Phone: 06-06-2021 13:31-0500 Systolic blood pressure 120 mm[Hg] Dr. Fabián Ruiz Work Phone: [facility] Work Phone: 06-06-2021 12:31-0500 Body mass index (BMI) [Ratio] 24 kg/m2 Dr. Fabián Ruiz Work Phone: [facility] Work Phone: 06-06-2021 12:31-0500 Body temperature 97.1 [degF] Dr. Fabián Ruiz Work Phone: [facility] Work Phone: 06-06-2021 12:31-0500 Body weight 61.[address] Fabián Ruiz Work Phone: [facility] Work Phone: 06-06-2021 12:31-0500 Diastolic blood pressure 80 mm[Hg] Dr. Fabián Ruiz Work Phone: [facility] Work Phone: 06-06-2021 12:31-0500 Heart rate 68 /min Dr. Fabián Ruiz Work Phone: [facility] Work Phone: 06-06-2021 12:31-0500 Respiratory rate 16 /min Dr. Fabián Ruiz Work Phone: [facility] Work Phone: 06-06-2021 12:31-0500 SaO2% (BldA) [Mass fraction] 99 % Dr. Fabián Ruiz Work Phone: [facility] Work Phone: 06-06-2021 12:31-0500 Systolic blood pressure 120 mm[Hg] Dr. Fabián Ruiz Work Phone: [facility] Work Phone: 04-24-2021 20:17-0500 Body mass index (BMI) [Ratio] 24.8 kg/m2 Dr. Fabián Ruiz Work Phone: [facility] Work Phone: 04-24-2021 20:17-0500 Body temperature 97.5 [degF] Dr. Fabián Ruiz Work Phone: [facility] Work Phone: 04-24-2021 20:17-0500 Body weight 61.[address] Fabián Ruiz Work Phone: [facility] Work Phone: 04-24-2021 20:17-0500 Diastolic blood pressure 78 mm[Hg] Dr. Fabián Ruiz Work Phone: [facility] Work Phone: 04-24-2021 20:17-0500 Heart rate 68 /min Dr. Fabián Ruiz Work Phone: [facility] Work Phone: 04-24-2021 20:17-0500 Respiratory rate 16 /min Dr. Fabián Ruiz Work Phone: [facility] Work Phone: 04-24-2021 20:17-0500 SaO2% (BldA) [Mass fraction] 98 % Dr. Fabián Ruiz Work Phone: [facility] Work Phone: 04-24-2021 20:17-0500 Systolic blood pressure 125 mm[Hg] Dr. Fabián Ruiz Work Phone: [facility] Work Phone: 04-22-2021 12:50-0500 Body temperature 97.3 [degF] Dr. Fabián Ruiz Work Phone: [facility] Work Phone: 04-22-2021 12:50-0500 Diastolic blood pressure 78 mm[Hg] Dr. Fabián Ruiz Work Phone: [facility] Work Phone: 04-22-2021 12:50-0500 Heart rate 75 /min Dr. Fabián Ruiz Work Phone: [facility] Work Phone: 04-22-2021 12:50-0500 Respiratory rate 15 /min Dr. Fabián Ruiz Work Phone: [facility] Work Phone: 04-22-2021 12:50-0500 SaO2% (BldA) [Mass fraction] 99 % Dr. Fabián Ruiz Work Phone: [facility] Work Phone: 04-22-2021 12:50-0500 Systolic blood pressure 120 mm[Hg] Dr. Fabián Ruiz Work Phone: [facility] Work Phone: 03-09-2021 16:46-0500 Body mass index (BMI) [Ratio] 25.24 kg/m2 Fabián Ruiz Work Phone: QZ-Ryanljssecfp-Mh [facility] [address] [facility] Work Phone: 03-09-2021 16:46-0500 Body surface area Derived from formula 1.63 m2 Fabián Ruiz Work Phone: CM-Xsfwurnaduds-Mi [facility] [address] [facility] Work Phone: 03-09-2021 16:46-0500 Body temperature 97.9 [degF] Fabián Ruiz Work Phone: VZ-Zfwgugthnpfk-Fx [facility] [address] [facility] Work Phone: 03-09-2021 16:46-0500 Body weight 62.6 kg Fabián Ruiz Work Phone: CK-Jnqpwtizcotd-Iv [facility] [address] Work Phone: 03-09-2021 16:46-0500 Diastolic blood pressure 69 mm[Hg] Fabián Ruiz Work Phone: KV-Xjmuulbuofio-Ra [facility] [address] Work Phone: 03-09-2021 16:46-0500 Heart rate 74 /min Fabián Ruiz Work Phone: LP-Unggzhraumwi-Ke [facility] [address] Work Phone: 03-09-2021 16:46-0500 Systolic blood pressure 104 mm[Hg] Fabián Ruiz Work Phone: [facility] [address] Work Phone: 03-09-2021 16:46-0500 0 1 Fabián Ruiz Work Phone: DO-Ykltbfnxoift-Fp [facility] [address] Work Phone: Comment on above: [employer] 09-29-2020 15:32-0400 Diastolic blood pressure 72 mm[Hg] Fabián Ruiz Work Phone: YK-Hrditxxunkxa-Lx [facility] [address] Work Phone: 09-29-2020 15:32-0400 Heart rate 72 /min Fabián Ruiz Work Phone: DK-Dqbmfflswfci-Tn [facility] [address] Work Phone: 09-29-2020 15:32-0400 Systolic blood pressure 111 mm[Hg] Fabián Ruiz Work Phone: OP-Drkkpwcspfiu-Ig [facility] [address] Work Phone: 09-29-2020 15:32-0400 2 1 Fabián Ruiz Work Phone: [facility]brr[facility] [address] [facility] Work Phone: Comment on above: [employer] 01-01-2017 14:40-0400 Body Temperature 98.9 [degF] Alka Hurtado LPN [facility] Work Phone: 09-18-2016 14:20-0400 BMI (Body Mass Index) 24.87 kg/m2 Vannessa Shun [facility] Work Phone: 09-18-2016 14:20-0400 Body Temperature 97.5 [degF] Vannessa Shun [facility] Work Phone: 09-18-2016 14:20-0400 BP Diastolic 78 mm[Hg] Vannessa Shun [facility] Work Phone: 09-18-2016 14:20-0400 BP Systolic 116 mm[Hg] Vannessa Shun [facility] Work Phone: 09-18-2016 14:20-0400 Height 157.48 cm Vannessa Shun [facility] Work Phone: 09-18-2016 14:20-0400 Pulse (Heart Rate) 59 /min Vannessa Shun [facility] Work Phone: 09-18-2016 14:20-0400 Pulse Oximetry 98 % Vannessa Shun [facility] Work Phone: 09-18-2016 14:20-0400 Respiratory Rate 18 /min Vannessa Shun [facility] Phone: 09-18-2016 14:20-0400 Weight 61.69 kg Vannessa Shun [facility] Phone: Encounters Encounter Date Encounter Type Care Provider Facility Start: 01-14-2025 ambulatory Fabián Ruiz Facility: [facility] Start: 01-14-2025 ambulatory [facility] Facilit y:[facility] Start: 01-10-2025 End: 01-10-2025 ambulatory [facility] Facility:[facility] Start: 12-29-2024 ambulatory [place] Yannick Facility:[facility] [place] Start: 12-21-2024 End: 12-28-[address] Elvis TAYLOR -Laboratory Work Phone: Start: 12-21-2024 End: 12-28-[address] Elvis TAYLOR Work Phone: -Laboratory Start: 11-04-2024 End: 11-04-[address] Fabián Ruiz DO Work Phone: -Laboratory [place] Start: 11-04-2024 End: 11-04-[address] Elvis TAYLOR -Laboratory [place] Work Phone: Start: 11-03-2024 End: 11-04-[address] [facility] Ambulatory Start: 11-03-2024 End: 11-03-2024 Office outpatient visit 25 minutes Morgan Lanier MD Work Phone: [facility] Comment on above: Sjogren's syndrome, with unspecified organ involvement (Multi) (Primary Dx); Systemic lupus erythematosus, unspecified SLE type, unspecified organ involvement status (Multi) Start: 10-26-2024 End: 10-28-[address] Elvis TAYLOR -Laboratory Work Phone: Start: 10-26-2024 End: 10-28-[address] Fabián Ruiz DO Work Phone: -Laboratory Start: 09-20-2024 End: 09-20-2024 Patient encounter procedure Casimiro AUGUSTE -[facility] Work Phone: Start: 09-20-2024 End: 09-20-[address] Ruchi Wu MD Work Phone: [facility] Work Phone: Start: 09-20-2024 End: 09-20-2024 ambulatory Fabián Ruiz Facility:[facility] Start: 09-02-2024 End: 09-02-[address] Elvis TAYLOR -Laboratory Work Phone: Start: 09-02-[address] Elvis TAYLOR -Laboratory Work Phone: Start: 09-02-2024 End: 09-02-[address] Ruchi Wu MD Work Phone: -Laboratory Start: 08-18-2024 End: 08-18-[address] Ruchi Wu MD Work Phone: [facility] Work Phone: Start: 08-18-2024 End: 08-18-[address] Fabián Ruiz DO -Laboratory Work Phone: Start: 08-18-2024 End: 08-18-[address] [facility] Facility:[facility] Start: 06-30-2024 End: 06-30-2024 ambulatory RUCHI WU Facility:[id number] Start: 06-30-2024 End: 06-30-2024 Office outpatient visit 25 minutes Morgan Lanier MD Work Phone: [facility] Comment on above: High risk medication use (Primary Dx); Sjogren's syndrome, with unspecified organ involvement (Multi) Start: 06-30-2024 End: 06-30-2024 ambulatory [place] [facility] Ambulatory Start: 06-29-2024 End: 06-29-[address] Michael Fontana MD -[facility] Work Phone: Start: 06-29-2024 End: 06-29-2024 ambulatory Michael Fontana Facility:[facility] Start: 06-11-2024 End: 06-11-[address] Elvis TAYLOR -Laboratory Work Phone: Start: 06-11-2024 End: 06-11-[address] Ruchi Wu MD Work Phone: [facility] Work Phone: Start: 05-04-2024 End: 05-04-[address] Nya Negron DPM -Radiology, [facility] Work Phone: Start: 05-04-2024 End: 05-04-2024 ambulatory [facility] Facility:[facility] Start: 04-29-2024 End: 04-29-[address] Elvis TAYLOR -Laboratory Work Phone: Start: 04-29-2024 End: 04-29-2024 ambulatory [facility] Facility:[facility] Start: 04-22-2024 End: 04-22-[address] Michael Fontana MD -[facility] Work Phone: Start: 04-22-2024 End: 04-22-2024 ambulatory Michael Fontana Facility:[facility] Start: 04-02-2024 End: 04-02-[address] Elvis TAYLOR -Laboratory Work Phone: Start: 04-02-2024 End: 04-02-2024 ambulatory [facility] Facility:[facility] Start: 02-04-2024 End: 02-04-2024 Office outpatient visit 15 minutes Morgan Lanier MD Work Phone: [facility] Comment on above: Systemic lupus eryth ematosus, unspecified SLE type, unspecified organ involvement status (Multi) Start: 02-04-2024 End: 02-04-[address] [facility] Ambulatory Start: 02-03-2024 End: 02-28-2024 ambulatory [facility] Facility:[facility] Start: 07-30-2023 End: 07-30-[address] Ruchi Wu Work Phone: [facility] Work Phone: Start: 07-28-2023 End: 07-28-[address] Ruchi Wu Work Phone: [facility] Work Phone: Start: 07-28-2023 End: 07-28-[address] Ruchi Wu Work Phone: [facility]-Laboratory Work Phone: Start: 07-16-2023 End: 07-16-[address] Ruchi Wu Work Phone: [facility] Work Phone: Start: 07-16-2023 End: 07-16-[address] [facility] Start: 07-02-2023 End: 07-02-[address] Ruchi Wu Work Phone: [facility] Work Phone: Start: 07-02-2023 End: 07-02-[address] Ruchi Wu Work Phone: [facility]-Outpatient Bone D[facility] Work Phone: Start: 06-17-2023 End: 06-17-[address] Ruchi Wu Work Phone: [facility] Work Phone: Start: 06-17-2023 End: 06-17-2023 Patient encounter procedure Dr[facility] R[facility] Start: 06-11-[address] Ruchi Wu Work Phone: [facility] Start: 06-11-2023 End: 06-11-2023 Encounter for general adult medical examination without abnormal findings Dr. Ruchi Wu Work Phone: [facility] Start: 06-11-2023 End: 06-11-[address] Ruchi Wu Work Phone: [facility] Internal Medicine Work Phone: Start: 06-04-2023 End: 06-04-2023 Office outpatient visit 15 minutes Morgan Lanier MD Work Phone: [facility] Comment on above: Screening for osteop orosis (Primary Dx); Sjogren's syndrome, with unspecified organ involvement (CMS/HCC) Start: 06-02-2023 End: 06-02-[address] Ruchi Wu Work Phone: [facility] Work Phone: Start: 06-02-2023 End: 06-02-[address] [facility] Start: 04-22-2023 End: 04-22-[address] Ruchi Wu Work Phone: [facility] Neurology Work Phone: Start: 04-07-2023 End: 04-07-[address] [facility] Start: 03-12-2023 End: 03-12-2023 Office outpatient visit 15 minutes Morgan Lanier MD Work Phone: [facility] Comment on above: Systemic lupus eryth ematosus, unspecified SLE type, unspecified organ involvement status (CMS/HCC) (Primary Dx) Start: 02-10-2023 End: 02-10-[address] Ruchi Wu Work Phone: [facility] Work Phone: Start: 02-10-2023 End: 02-10-[address] [facility] Start: 12-18-2022 End: 12-18-[address] Ruchi Wu Work Phone: [facility] Work Phone: Start: 12-18-2022 End: 12-18-[address] Ruchi Wu Work Phone: [facility] Work Phone: Start: 12-11-2022 End: 12-11-[address] Ruchi Wu Work Phone: [facility] Internal Medicine Work Phone: Start: 12-09-2022 End: 12-09-[address] Ruchi Wu Work Phone: [facility]Laboratory Work Phone: Start: 12-04-2022 Office outpatient visit 15 minutes Ruchi Wu Work Phone: CI-Xgqsdvhlsuwz-Ucftyqbyhq le Work Phone: Start: 12-04-2022 ambulatory [facility] Facility:[id number] Start: 11-18-2022 Non-patient / Non-visit Dr. Ruchi Wu Work Phone: [facility] Start: 11-18-2022 End: 11-18-[address] Ruchi Wu Work Phone: [facility] Work Phone: Start: 11-18-2022 End: 11-18-[address] [facility]: Start: 11-18-2022 End: 11-18-[address] Ruchi Wu Work Phone: [facility] Orthopaedic [facility]ia Work Phone: Start: 11-15-2022 End: 11-15-[address] Ruchi Wu Work Phone: [facility] Work Phone: Start: 11-15-2022 End: 11-15-[address] Ruchi Wu Work Phone: [facility]Labor[facility] Work Phone: Start: 10-23-2022 End: 10-23-[address] Ruchi Wu Work Phone: [facility] Work Phone: Start: 10-23-2022 End: 10-23-[address] Ruchi Wu Work Phone: [facility]-Outpatient Breast Imaging Work Phone: Start: 10-22-2022 Non-patient / Non-visit Dr. Ruchi Wu Work Phone: [facility] Start: 10-22-2022 End: 10-22-2022 Admission to same day surgery center Dr. Ruchi Wu Work Phone: [facility] Start: 10-22-2022 End: 10-22-[address] Ruchi Wu Work Phone: [facility] Neurology Work Phone: Start: 10-16-2022 End: 10-16-[address] Ruchi Wu Work Phone: [facility] Women's Care Work Phone: Start: 09-19-2022 End: 09-19-[address] Ruchi Wu Work Phone: [facility] Work Phone: Start: 09-19-2022 End: 09-19-[address] Ruchi Wu Work Phone: [facility] Ultrasound Start: 09-11-2022 End: 09-11-[address] Ruchi Wu Work Phone: [facility] Work Phone: Start: 09-11-2022 End: 09-11-[address] Ruchi Wu Work Phone: [facility]-Laboratory, Specimen Start: 09-11-2022 End: 09-11-[address] Ruchi Wu Work Phone: [facility] Start: 08-28-2022 End: 08-28-[address] Ruchi Wu Work Phone: [facility] Work Phone: Start: 08-28-2022 End: 08-28-[address] Ruchi Wu Work Phone: [facility]-Laboratory Start: 08-07-2022 Office outpatient visit 15 minutes Ruchi Wu Work Phone: WJ-Wwdspsyvcinj-Rvykirqwlh jihan Work Phone: Start: 08-07-2022 ambulatory [facility] Facility:[id number] Start: 07-22-2022 Rx Renewal Ruchi barksdale Work Phone: [facility] [address] Work Phone: Start: 07-17-2022 End: 07-17-[address] Ruchi Wu Work Phone: [facility] Work Phone: Start: 07-17-2022 End: 07-17-[address] Ruchi Wu Work Phone: [facility] Start: 07-12-2022 End: 07-12-[address] Ruchi Wu Work Phone: [facility] Work Phone: Start: 07-12-2022 End: 07-12-[address] Ruchi Wu Work Phone: [facility]-Laboratory, Specimen Start: 07-12-2022 End: 07-12-[address] Ruchi Wu Work Phone: [facility] Start: 06-28-2022 End: 06-28-[address] Ruchi Wu Work Phone: [facility] Work Phone: Start: 06-28-2022 End: 06-28-[address] Ruchi Wu Work Phone: [facility]-Laboratory Start: 06-25-2022 Current tobacco non-user cad cap copd pv dm Ruchi Wu Work Phone: [facility] [address] [facility] Work Phone: Start: 06-25-2022 ambulatory [facility] Facility:[id number] Start: 06-25-2022 End: 06-25-[address] Ruchi Wu Work Phone: [facility] Neurology Start: 05-31-2022 End: 05-31-[address] Ruchi Wu Work Phone: [facility] Work Phone: Start: 05-31-2022 End: 05-31-[address] Ruchi Wu Work Phone: [facility]-Laboratory Start: 05-07-2022 End: 05-07-[address] Ruchi Wu Work Phone: [facility] Start: 05-01-2022 End: 05-01-[address] Ruchi Wu Work Phone: [facility] Internal Medicine Start: 04-02-2022 End: 04-02-[address] Ruchi Wu Work Phone: [facility] Start: 03-27-2022 End: 03-27-[address] Ruchi Wu Work Phone: [facility] Work Phone: Start: 03-27-2022 End: 03-27-[address] Ruchi Wu Work Phone: [facility], [facility] Start: 03-27-2022 End: 03-27-[address] Ruchi Wu Work Phone: [facility] Medicine Start: 02-20-2022 End: 02-20-[address] Ruchi Wu Work Phone: [facility] Work Phone: Start: 02-20-2022 End: 02-20-[address] [facility] Start: 01-30-2022 End: 01-30-[address] Ruchi Wu Work Phone: [facility] Work Phone: Start: 01-30-2022 End: 01-30-[address] Ruchi Wu Work Phone: [facility]-Pulmonary Services/Neurology Start: 01-24-2022 End: 01-24-[address] Ruchi Wu Work Phone: [facility] Work Phone: Start: 01-24-2022 End: 01-24-[address] Ruchi Wu Work Phone: [facility]-Laboratory Start: 01-23-2022 Non-patient / Non-visit Dr. Ruchi Wu Work Phone: [facility] Start: 01-16-2022 Office outpatient visit 25 minutes Ruchi Wu Work Phone: WZ-Tvevfktdmzaj-Bamfwzsnap le Work Phone: Start: 01-16-2022 Patient encounter procedure Ruchi Wu Work Phone: PH-Ofzdjvdhttso-Vppmcaoifl le Work Phone: Start: 01-16-2022 ambulatory [facility] Facility:[id number] Start: 01-09-2022 Non-patient / Non-visit Dr. Ruchi Wu Work Phone: [facility] Start: 01-09-2022 End: 01-09-[address] Ruchi Wu Work Phone: [facility]-Cardiovascular Services Start: 12-26-2021 End: 12-26-[address] Ruchi Wu Work Phone: [facility] Start: 12-26-2021 End: 12-26-[address] Ruchi Wu Work Phone: [facility] Work Phone: Start: 12-26-2021 End: 12-26-[address] Ruchi Wu Work Phone: [facility]Labor[facility] Start: 12-25-2021 End: 12-25-[address] Ruchi Wu Work Phone: [facility] Work Phone: Start: 12-25-2021 End: 12-25-[address] Ruchi Wu Work Phone: [facility]-Laboratory, Specimen Start: 12-25-2021 Rx Renewal Ruchi Key shamir Work Phone: [facility] [address] [facility] Work Phone: Start: 12-24-2021 End: 12-24-[address] Ruchi Wu Work Phone: [facility] Start: 12-17-2021 Patient encounter procedure Ruchi Wu Work Phone: AR-Gbzeudomk-Mksmyvrse 201 Work Phone: Start: 12-17-[address] Pawan Rios [facility] Facility:[id number] Start: 11-28-2021 End: 11-28-[address] Ruchi Wu Work Phone: [facility] Work Phone: Start: 11-28-2021 End: 11-28-[address] [facility] Start: 11-12-2021 Non-patient / Non-visit Dr. Ruchi Wu Work Phone: [facility] Start: 11-12-2021 End: 11-12-2021 Admission to same day surgery center Dr. Ruchi Wu Work Phone: [facility]-Endoscopy Start: 11-06-2021 End: 11-06-[address] Ruchi Wu Work Phone: [facility]-Radiology, [facility] Start: 10-31-2021 End: 10-31-[address] Ruchi Wu Work Phone: [facility]-Laboratory Start: 10-30-2021 End: 10-30-[address] Ruchi Wu Work Phone: [facility] Start: 10-09-2021 End: 10-09-[address] Ruchi Wu Work Phone: [facility]-Laboratory Start: 10-02-2021 Patient encounter procedure Ruchi Wu Work Phone: CI-Pqzbppwuzohy-Nrkpdnyjg 201 DO Work Phone: Start: 09-19-2021 End: 09-19-[address] Ruchi Wu Work Phone: [facility] Start: 09-13-2021 End: 09-13-[address] Fabián Ruiz Work Phone: [facility] Start: 09-05-2021 End: 09-05-[address] Fabián Ruiz Work Phone: [facility] Start: 09-05-2021 End: 09-05-[address] Fabián Ruiz Work Phone: [facility] Gastroenterology Start: 09-05-2021 End: 09-05-[address] Fabián Ruiz Work Phone: [facility]-Laboratory Start: 08-31-2021 End: 08-31-[address] Fabián Ruiz Work Phone: [facility] Start: 2021 Chart Update Ruchi barksdale Work Phone: XR-Bpynykpdkdkt-Qbldg [place] Work Phone: Start: 07-19-2021 End: 07-19-[address] Fabián Ruiz Work Phone: [facility]-Labor[facility] Start: 07-17-2021 End: 07-17-[address] Fabián Ruiz Work Phone: [facility] Start: 07-12-2021 End: 07-12-[address] Fabián Ruiz Work Phone: [facility] Start: 07-09-2021 Office consultation new/estab patient 80 min Fabián Ruiz Work Phone: TP-Ifnqibsmt-NwfsbyxChi [facility] [address] Work Phone: Start: 06-11-2021 End: 06-11-[address] Fabián Ruiz Work Phone: [facility]-Labor[facility] Start: 06-06-2021 End: 06-06-2021 Emergency department patient visit Dr. Fabián Ruiz [facility] Start: 06-06-2021 End: 06-06-[address] Fabián Ruiz Work Phone: [facility] Start: 05-08-2021 AUDIT Fabián jesus Work Phone: JA-Hcofinhyucdq-Qxxbkdmsce le Work Phone: Start: 05-02-2021 End: 05-02-[address] Fabián Ruiz Work Phone: [facility]-Outpatient [facility] Start: 04-24-2021 End: 04-25-2021 Emergency department patient visit Dr. Fabián Ruiz Work Phone: [facility]-Emergency Department Start: 04-22-2021 End: 04-22-[address] Fabián Ruiz Work Phone: [facility] Start: 04-15-2021 Rx Renewal Fabián Blackwell n Work Phone: BY-Nlboawfkbaxz-RdmqoqeC[facility] [address] Work Phone: Start: 03-09-2021 Office outpatient visit 15 minutes Fabián Ruiz Work Phone: JU-Roymdbxkjzcy-FejdrotC[facility] [address] Work Phone: Start: 10-23-2020 Rx Renewal Fabián Blackwell n Work Phone: JU-Tgvezpzvoeki-AukggtsC[facility] [address] Work Phone: Start: 09-29-2020 Office outpatient visit 15 minutes Fabián Steel Sara Work Phone: NN-Ybcrjcpbrtch-WpdxowwC[facility] [address] Work Phone: Procedures Date Procedure Procedure Detail Performing Clinician Start: 11-04-[address] Fabián Ruiz DO Work Phone: Comment on above: Performed at: [address] Director: Espinoza Bhatia PhD, Phone: [phone] Start: 11-04-2024 Antibody to centromere measurement Dr. Fabián Ruiz DO Work Phone: Comment on above: Test not performed Start: 11-04-2024 Antibody to extractable nuclear antigen measurement Dr. Fabián Ruiz DO Work Phone: Comment on above: Test not performed Start: 11-04-2024 Antibody to GWEN-[address] Fabián Deluna DO Work Phone: Comment on above: Test not performed Start: 11-04-2024 Antibody to lupus La protein measurement Dr. Fabián Ruiz DO Work Phone: Comment on above: Test not performed Start: 11-04-2024 Antibody to SS-A measurement Dr. Fabián Deluna DO Work Phone: Comment on above: Test not performed Start: 11-04-[address] Fabián gann DO Work Phone: Comment on above: Test not performed Start: 11-04-2024 STAFF MIDWIFE antibody measurement Dr. Fabián gann DO Work Phone: Comment on above: Test not performed Start: 09-20-2024 X-ray of chest, PA and lateral views Dr. Ruchi Wu MD Work Phone: Start: 08-18-2024 Vitamin D, 25-hydroxy measurement Dr. Neo Wu MD Work Phone: Comment on above: Vitamin D StatusDeficiency: <20 ng/mL (5 0nmol/L)Insufficiency: 20-30 ng/mL (50-75 nmol/L)Sufficiency: 30-100 ng/mL (75-250 nmol/L)Toxicity: >100 ng/mL (>250 nmol/L) Start: 06-30-2024 Follow-up visit Follow-up MORGAN LANIER Start: 05-04-2024 X-ray of foot, three or more views Dr. Ruchi Wu MD Work Phone: Start: 04-29-2024 Measurement of C-reactive protein using high sensitivity technique Dr. Ruchi Wu MD Work Phone: Comment on above: C-Reactive Protein (CRP) provides useful information for thediagnosis, therapy and monitoring of inflammatory processesand associated diseases. For the evaluation of Relative Riskfor Cardiovascular Disease, a High Sensitivity CRP (HSCRP)should be ordered. Start: 04-29-2024 Measurement of renal function Dr. Nicole Wu MD Work Phone: Comment on above: GFR Calc Start: 04-29-2024 Urnls dip stick/tablet reagent auto microscopy Dr. Ruchi Wu MD Work Phone: Start: 07-02-2023 Dual energy X-ray absorptiometry Dr. Kenji Wu Work Phone: Start: 12-18-2022 MRI of lower extremity Dr. Ruchi Wu Work Phone: Start: 11-18-2022 Plain X-ray of tibia and fibula Dr. Jasmina Wu Work Phone: Start: 11-18-2022 Radiologic examination of knee Dr. Silvia Wu Work Phone: Start: 10-23-[address] Ruchi Wu Work Phone: Start: 09-19-[address] Ruchi Wu Work Phone: Start: 07-17-2022 MRI of brain with contrast Dr. Ruchi Wu Work Phone: Start: 07-12-[address] Ruchi Wu Work Phone: Start: 11-28-2021 MRI of lumbar spine Dr. Ruchi Wu Work Phone: Start: 11-28-2021 MRI of thoracic spine Dr. Ruchi Wu Work Phone: Start: 11-12-[address] Ruchi Wu Work Phone: Start: 11-06-[address] es[address] Ruchi Wu Work Phone: Start: 09-13-2021 Computed tomography of abdomen and pelvis with contrast Dr. Fabián Ruiz Work Phone: Start: 09-05-2021 Plain chest X-ray Dr. Fabián Ruiz Work Phone: Start: 06-06-2021 CT cervical spine without contrast Dr. Fabián Ruiz Work Phone: Start: 06-06-2021 CT of head without contrast Dr. Fabián hunter Work Phone: Start: 05-02-[address] Fabián Ruiz Work Phone: Start: 04-24-2021 CT angiography of head and neck Dr. Fabián Ruiz Work Phone: Start: 08-12-2018 Conrado Leal MD Work Phone: Start: 06-07-2014 End: 06-07-2014 *CBC with Differential Fabián Ruiz DO [employer] Phone: Start: 06-07-2014 End: 06-07-2014 Thyrotropin [Units/volume] in Serum or Plasma Fabián Ruiz DO Work Phone: Start: 06-07-2014 End: 06-07-2014 *CBC with Differential Fabián Ruiz DO [employer] Phone: Start: 06-07-2014 End: 06-07-2014 Thyroid stimulating hormone (TSH) Fabián Ruiz DO [employer] Phone: Start: 06-03-2014 End: 06-06-2014 *ASHLEY Fabián Ruiz DO Work Phone: Start: 06-03-2014 End: 06-06-2014 *CBC with Differential Fabián Ruiz DO [employer] Phone: Start: 06-03-2014 End: 06-06-2014 *CMP Complete Metabolic Panel Fabián hunter DO [employer] Phone: Start: 06-03-2014 End: 06-06-2014 Acute hepatitis panel Fabián Ruiz DO [employer] Phone: Start: 06-03-2014 End: 06-06-2014 C reactive protein [Mass/volume] in Serum or Plasma by High sensitivity method Fabián Ruiz DO [employer] Phone: Start: 06-03-2014 End: 06-06-2014 Chest x-ray Fabián Ruiz DO [employer] Phone: Start: 06-03-2014 End: 06-06-2014 Choriogonadotropin ( test) [Presence] in Serum or Plasma Fabián Ruiz DO [employer] Phone: Start: 06-03-2014 End: 06-06-2014 Erythrocyte sedimentation rate Fabián Deluna DO Work Phone: Start: 06-03-2014 End: 06-06-2014 Urinalysis complete panel - Urine Fabián Ruiz DO Work Phone: Start: 06-03-2014 End: 06-06-2014 *ASHLEY Fabián Ruiz DO Work Phone: Start: 06-03-2014 End: 06-06-2014 *CBC with Differential Fabián Ruiz DO Work Phone: Start: 06-03-2014 End: 06-06-2014 *CMP Complete Metabolic Panel Fabián hunter DO Work Phone: Start: 06-03-2014 End: 06-06-2014 Acute hepatitis panel Fabián Ruiz DO [employer] Phone: Start: 06-03-2014 End: 06-06-2014 C reactive protein (hsCRP) Fabián gann DO Work Phone: Start: 06-03-2014 End: 06-06-2014 Chest x-ray Fabián Ruiz DO Work Phone: Start: 06-03-2014 End: 06-06-2014 Choriogonadotropin ( test) [Presence] in Serum or Plasma Fabián Ruiz DO Work Phone: Start: 06-03-2014 End: 06-06-2014 Erythrocyte sedimentation rate Fabián Deluna DO Work Phone: Start: 06-03-2014 End: 06-06-2014 Urinalysis complete panel - Urine Fabián Ruiz DO Work Phone: Start: 12-30-2013 End: 06-06-2014 Mammogram, Screening, both breasts Fabián Ruiz DO Work Phone: Start: 12-30-2013 Screening for malignant neoplasm of breast Screening for breast cancer Alka Hurtado LPN Start: 12-30-2013 End: 06-06-2014 Mammogram, Screening, both breasts Fabián Ruiz [employer] Work Phone: Start: 12-30-2013 Screening for malignant neoplasm of breast Screening for breast cancer Vannessa Hoffmann Start: 10-20-2013 End: 10-21-2013 *CBC with Differential Fabián Ruiz DO Work Phone: Start: 10-20-2013 End: 10-21-2013 Thyrotropin [Units/volume] in Serum or Plasma Fabián Milvia CaputoSara DO Work Phone: Start: 10-20-2013 End: 10-21-2013 *CBC with Differential Fabián Ruiz DO Work Phone: Start: 10-20-2013 End: 10-21-2013 Thyroid stimulating hormone (TSH) Fabián Milvia CaputoSara DO Work Phone: H/O: tubal ligation History of t ubal ligation Dr. Fabián Ruiz Work Phone: History of decompres heather of median nerve History of bilateral carpal tunnel release Dr. Fabián Ruiz Work Phone: History of tonsillectomy History of tonsillectomy and adenoidectomy Dr. Fabián Ruiz Work Phone: Urine culture Dr. Ruchi Wu Work Phone: Urine culture Dr. Ruchi Wu Work Phone: Plan of Treatment Date Care Activity Detail Author Start: 06-07-2031 DTaP/Tdap/Td Vaccines (2 - Td or Tdap) DTaP/Tdap/Td Vaccines (2 - Td or Tdap) [facility] Start: 08-12-2028 Screening for malignant neoplasm of colon [facility] Start: 07-05-2025 End: 07-05-2025 Patient encounter procedure 07/05/2025 9:00 AM EDT Office Visit [facility] [address] [place] [phone] Morgan Lanier MD [address] [place] [address] [facility] Start: 03-02-2025 End: 03-02-2025 Patient encounter procedure 03/02/2025 1:00 PM EST Office Visit [facility] [address] [place] [phone] Morgan Lanier MD [address] [place] [address] [facility] Start: 11-29-2024 Influenza vaccination Influenza Vaccine (#1) [facility] Start: 11-03-2024 End: 11-03-2024 Patient encounter procedure 11/03/2024 2:40 PM EDT Office Visit [facility] [address] [place] [phone] Morgan Lanier MD [address] [place] [address] [facility] Start: 11-03-2024 End: 11-03-2025 C reactive protein [Mass/volume] in Serum or Plasma C-Reactive Protein Lab Routine Sjogren's syndrome, with unspecified organ involvement (Multi) Systemic lupus erythematosus, unspecified SLE type, unspecified organ involvement status (Multi) Expected: 11/03/2024 (Approximate), Expires: 11/03/2025 [facility] Work Phone: Comment on above: Expected: 11/03/2024 (Approximate), Expi res: 11/03/2025 Start: 11-03-2024 End: 11-03-2025 Chromatin Ab [Units/volume] in Serum or Plasma Anti-Chromatin Lab Routine Sjogren's syndrome, with unspecified organ involvement (Multi) Systemic lupus erythematosus, unspecified SLE type, unspecified organ involvement status (Multi) Expected: 11/03/2024 (Approximate), Expires: 11/03/2025 [facility] Work Phone: Comment on above: Expected: 11/03/2024 (Approximate), Expi res: 11/03/2025 Start: 11-03-2024 End: 11-03-2025 Creatine kinase [Enzymatic activity/volume] in Serum or Plasma Creatine Kinase Lab Routine Sjogren's syndrome, with unspecified organ involvement (Multi) Systemic lupus erythematosus, unspecified SLE type, unspecified organ involvement status (Multi) Expected: 11/03/2024 (Approximate), Expires: 11/03/2025 [facility] Work Phone: Comment on above: Expected: 11/03/2024 (Approximate), Expi res: 11/03/2025 Start: 11-03-2024 End: 11-03-2025 DNA double strand Ab [Units/volume] in Serum Anti-DNA Antibody, Double-Stranded Lab Routine Sjogren's syndrome, with unspecified organ involvement (Multi) Systemic lupus erythematosus, unspecified SLE type, unspecified organ involvement status (Multi) Expected: 11/03/2024 (Approximate), Expires: 11/03/2025 [facility] Work Phone: Comment on above: Expected: 11/03/2024 (Approximate), Expi res: 11/03/2025 Start: 11-03-2024 End: 11-03-2025 Nuclear Ab [Presence] in Serum by Hep2 substrate ASHLEY with Reflex to JAYLA Lab Routine Sjogren's syndrome, with unspecified organ involvement (Multi) Systemic lupus erythematosus, unspecified SLE type, unspecified organ involvement status (Multi) Expected: 11/03/2024 (Approximate), Expires: 11/03/2025 [facility] Work Phone: Comment on above: Expected: 11/03/2024 (Approximate), Expi res: 11/03/2025 Start: 11-03-2024 End: 11-03-2025 Sjogrens syndrome-A extractable nuclear Ab [Units/volume] in Serum by Immunoassay Anti-SSA Lab Routine Sjogren's syndrome, with unspecified organ involvement (Multi) Systemic lupus erythematosus, unspecified SLE type, unspecified organ involvement status (Multi) Expected: 11/03/2024 (Approximate), Expires: 11/03/2025 [facility] Work Phone: Comment on above: Expected: 11/03/2024 (Approximate), Expi res: 11/03/2025 Start: 11-03-2024 End: 11-03-2025 Guerra extractable nuclear Ab [Units/volume] in Serum by Immunoassay Anti-SM Lab Routine Sjogren's syndrome, with unspecified organ involvement (Multi) Systemic lupus erythematosus, unspecified SLE type, unspecified organ involvement status (Multi) Expected: 11/03/2024 (Approximate), Expires: 11/03/2025 [facility] Work Phone: Comment on above: Expected: 11/03/2024 (Approximate), Expi res: 11/03/2025 Start: 06-30-2024 End: 06-30-2024 Patient encounter procedure 06/30/2024 2:20 PM EDT Office Visit [facility] [address] [facility] [address] [place] [id number] Morgan Lanier MD [address] [facility] [address] [place] [address] [facility] Start: 06-30-2024 End: 06-30-2025 Chromatin Ab [Units/volume] in Serum or Plasma Anti-Chromatin Lab Routine High risk medication use Sjogren's syndrome, with unspecified organ involvement (Multi) Expected: 06/30/2024 (Approximate), Expires: 06/30/2025 [facility] Work Phone: Comment on above: Expected: 06/30/2024 (Approximate), Expi res: 06/30/2025 Start: 06-30-2024 End: 06-30-2025 DNA double strand Ab [Units/volume] in Serum Anti-DNA Antibody, Double-Stranded Lab Routine High risk medication use Sjogren's syndrome, with unspecified organ involvement (Multi) Expected: 06/30/2024 (Approximate), Expires: 06/30/2025 [facility] Work Phone: Comment on above: Expected: 06/30/2024 (Approximate), Expi res: 06/30/2025 Start: 06-30-2024 End: 06-30-2025 Hepatitis B virus core Ab [Presence] in Serum Hepatitis B Core Antibody, Total Lab Routine High risk medication use Sjogren's syndrome, with unspecified organ involvement (Multi) Expected: 06/30/2024 (Approximate), Expires: 06/30/2025 [facility] Work Phone: Comment on above: Expected: 06/30/2024 (Approximate), Expi res: 06/30/2025 Start: 06-30-2024 End: 06-30-2025 Hepatitis B virus surface Ab [Units/volume] in Serum Hepatitis B Surface Antibody Lab Routine High risk medication use Sjogren's syndrome, with unspecified organ involvement (Multi) Expected: 06/30/2024 (Approximate), Expires: 06/30/2025 [facility] Work Phone: Comment on above: Expected: 06/30/2024 (Approximate), Expi res: 06/30/2025 Start: 06-30-2024 End: 06-30-2025 Hepatitis B virus surface Ag [Presence] in Serum or Plasma by Immunoassay Hepatitis B Surface Antigen Lab Routine High risk medication use Sjogren's syndrome, with unspecified organ involvement (Multi) Expected: 06/30/2024 (Approximate), Expires: 06/30/2025 [facility] Work Phone: Comment on above: Expected: 06/30/2024 (Approximate), Expi res: 06/30/2025 Start: 06-30-2024 End: 06-30-2025 Hepatitis C virus Ab [Presence] in Serum Hepatitis C Antibody Lab Routine High risk medication use Sjogren's syndrome, with unspecified organ involvement (Multi) Expected: 06/30/2024 (Approximate), Expires: 06/30/2025 [facility] Work Phone: Comment on above: Expected: 06/30/2024 (Approximate), Expi res: 06/30/2025 Start: 06-30-2024 End: 06-30-2025 EYAD virus DNA [#/volume] (viral load) in Serum or Plasma by ARLETH with probe detection EYAD Virus PCR Quantitative Plasma Lab Routine High risk medication use Sjogren's syndrome, with unspecified organ involvement (Multi) Expected: 06/30/2024 (Approximate), Expires: 06/30/2025 [facility] Work Phone: Comment on above: Expected: 06/30/2024 (Approximate), Expi res: 06/30/2025 Start: 06-30-2024 End: 06-30-2025 Mycobacterium tuberculosis stimulated gamma interferon and spot count panel - Blood T-Spot TB Lab Routine High risk medication use Sjogren's syndrome, with unspecified organ involvement (Multi) Expected: 06/30/2024 (Approximate), Expires: 06/30/2025 [facility] Work Phone: Comment on above: Expected: 06/30/2024 (Approximate), Expi res: 06/30/2025 Start: 06-30-2024 End: 06-30-2025 Nuclear Ab [Presence] in Serum by Hep2 substrate ASHLEY with Reflex to JAYLA Lab Routine High risk medication use Sjogren's syndrome, with unspecified organ involvement (Multi) Expected: 06/30/2024 (Approximate), Expires: 06/30/2025 [facility] Work Phone: Comment on above: Expected: 06/30/2024 (Approximate), Expi res: 06/30/2025 Start: 06-30-2024 End: 06-30-2025 Sjogrens syndrome-A extractable nuclear Ab [Units/volume] in Serum by Immunoassay Anti-SSA Lab Routine High risk medication use Sjogren's syndrome, with unspecified organ involvement (Multi) Expected: 06/30/2024 (Approximate), Expires: 06/30/2025 [facility] Service Area Work Phone: Comment on above: Expected: 06/30/2024 (Approximate), Expi res: 06/30/2025 Start: 06-30-2024 End: 06-30-2025 Sjogrens syndrome-B extractable nuclear Ab [Units/volume] in Serum by Immunoassay Anti-SSB Lab Routine High risk medication use Sjogren's syndrome, with unspecified organ involvement (Multi) Expected: 06/30/2024 (Approximate), Expires: 06/30/2025 [facility] Work Phone: Comment on above: Expected: 06/30/2024 (Approximate), Expi res: 06/30/2025 Start: 06-30-2024 End: 06-30-2025 Guerra extractable nuclear Ab [Units/volume] in Serum by Immunoassay Anti-SM Lab Routine High risk medication use Sjogren's syndrome, with unspecified organ involvement (Multi) Expected: 06/30/2024 (Approximate), Expires: 06/30/2025 [facility] Work Phone: Comment on above: Expected: 06/30/2024 (Approximate), Expi res: 06/30/2025 Start: 02-04-2024 End: 02-04-2024 Patient encounter procedure 02/04/2024 3:00 PM EST Office Visit [address] [place] [phone] Morgan Lanier MD [address] [facility] [place] [address] [facility] Start: 11-30-2023 Influenza vaccination Influenza Vaccine (#1) [facility] Start: 10-22-2023 End: 10-22-2023 Patient encounter procedure 10/22/2023 2:00 PM EDT Office Visit [address] [place] [phone] Morgan Lanier MD [address] [facility] [address] [facility] [place] [place] [address] [facility] Start: 06-04-2023 FUV, Provider: Morgan Lanier, Status: Pen, Time: 3:00 PM FUV, Provider: Morgan Lanier, Status: Pen, Time: 3:[address]-Caascyhqcqef-Tn [place] Work Phone: Start: 06-04-2023 End: 06-04-2023 Patient encounter procedure 06/04/2023 3:00 PM EST Office Visit [place] [id number] [place] [address] Morgan Lanier MD [address] [facility] [address] [place] [address] [facility] Start: 06-04-2023 End: 06-03-2024 DXA Skeletal system Views for bone density XR DEXA bone density Imaging Routine Screening for osteoporosis Expected: 06/04/2023, Expires: 06/03/2024 [facility] Service Area Work Phone: Comment on above: Expected: 06/04/2023, Expires: Start: 03-12-2023 FUV, Provider: Morgan Lanier, Status: Pen, Time: 2:00 PM FUV, Provider: Morgan Lanier, Status: Pen, Time: 2:00 PM CU-Hfzkeotqucie-Yc [place] Work Phone: Start: 12-04-2022 FUV, Provider: Morgan Lanier, Status: Pen, Time: 2:40 PM FUV, Provider: Morgan Lanier, Status: Pen, Time: 2:40 PM [facility] [address] [facility] Work Phone: Start: 10-22-2022 Ambulation without limitation [facility] Start: 10-22-2022 Medical regimen orders management [facility] Start: 10-22-[address] [facility] Start: 10-22-[address] [facility] Start: 10-22-[address] [facility] Start: 10-22-2022 Taking patient vital signs [facility] Start: 10-22-2022 Vital signs measurements [facility] Start: 10-22-2022 [facility] Start: 10-22-[address] [facility] Start: 10-22-2022 Anes hysteroscopy&/hysterosalpingogr aphy w/bx ANESTH HYSTEROSCOPE/GRAPH [facility] Start: 10-22-2022 Hysteroscopy bx endometrium&/polypc w/wo d&c HYSTEROSCOPY BIOPSY [facility] Start: 09-11-2022 Liquid based cervical cytology screening [facility] Start: 08-28-[address] [facility] Start: 08-07-2022 FUV, Provider: Morgan Lanier, Status: Pen, Time: 3:00 PM FUV, Provider: Morgan Lanier, Status: Pen, Time: 3:00 PM EV-Sdczklzedhyl-Xi [facility] Work Phone: Start: 06-28-[address] [facility] Start: 05-31-2022 Vitamin D, 1,25-dihydroxy measurement [facility] Start: 03-27-[address] [facility] Work Phone: Start: 03-11-2022 FUVGENERAL, Provider: Pawan Khan, Status: Pen, Time: 4:30 PM FUVGENERAL, Provider: Pawan Khan, Status: Pen, Time: 4:30 PM BQ-Woymuqsdd-Jrgzm ield 201 Work Phone: Start: 02-08-2022 COVID-19 Vaccine (3 - Moderna risk series) COVID-19 Vaccine (3 - Moderna risk series) [facility] Start: 01-23-[address] [facility] Work Phone: Start: 01-16-2022 FUV, Provider: Morgan Lanier, Status: Pen, Time: 2:40 PM FUV, Provider: Morgan Lanier, Status: Pen, Time: 2:40 PM KK-Tswmhemrknlx-Ck [place] Work Phone: Start: 01-11-2022 COVID-19 Vaccine (3 - Moderna risk series) COVID-19 Vaccine (3 - Moderna risk series) [facility] Start: 12-17-2021 FUVGENERAL, Provider: Pawan Khan, Status: Pen, Time: 4:30 PM FUVGENERAL, Provider: Pawan Khan, Status: Pen, Time: 4:30 PM AL-Ejisgmiylsuq-Gf effield 201 DO Work Phone: Start: 11-12-2021 Egd transoral biopsy single/multiple EGD BIOPSY SINGLE/MULTIPLE [facility] Work Phone: Start: 11-12-[address] [facility] Work Phone: Start: 10-02-2021 NPVGENERAL, Provider: Pawan Khan, Status: Pen, Time: 3:15 PM NPVGENERAL, Provider: Pawan Khan, Status: Pen, Time: 3:15 PM [facility] Work Phone: Start: 07-18-2021 FUV, Provider: Morgan Lanier, Status: Pen, Time: 4:00 PM FUV, Provider: Morgan Lanier, Status: Pen, Time: 4:00 PM CG-Xltzyuwvegcz-Rr [facility] [address] [facility] Work Phone: Start: 06-06-[address] [facility] Work Phone: Start: 06-06-2021 Simple repair f/e/e/n/l/m 2.5cm/< RPR F/E/E/N/L/M 2.5 CM/< [facility] Work Phone: Start: 03-19-2017 End: 03-19-2017 Appointment Pulmonary Medicine [facility] Work Phone: Start: 01-01-2017 End: 01-01-2017 Appointment Appointment [facility] Work Phone: Start: 09-18-2016 End: 09-18-2016 Follow Up Appt 6 months Follow Up Appt 6 months [facility] Work Phone: Start: 09-18-2016 End: 09-18-2016 Follow Up Appt 6 months Follow Up Appt 6 months Pulmonary Medicine [facility] Work Phone: Start: 06-14-2016 End: 06-14-2016 Ct thorax w/o contrast material CT Chest without contrast [facility] Work Phone: Start: 06-14-2016 End: 06-14-2016 Echo tthrc r-t 2d w/wom-mode compl spec&colr d Echo Complete with Color Flow [facility] Work Phone: Start: 06-14-2016 End: 06-14-2016 Follow Up Appt 3 months Follow Up Appt 3 months [facility] Work Phone: Start: 06-14-2016 End: 06-14-2016 Ct thorax w/o dye CT Chest without contrast [facility] Work Phone: Start: 06-14-2016 End: 06-14-2016 Follow Up Appt 3 months Follow Up Appt 3 months [facility] Work Phone: Start: 06-14-2016 End: 06-14-2016 Tte w/doppler, complete Echo Complete with Color Flow [facility] Work Phone: Start: 08-21-2015 End: 08-21-2015 Mammogram, screening Mammogram, Screening, both breasts [facility] Work Phone: Start: 08-21-2015 End: 08-21-2015 Mammogram, screening Mammogram, Screening, both breasts [facility] Work Phone: Start: 06-08-2015 Thyroid stimulating hormone measurement TSH Level [facility] Start: 10-21-2014 End: 06-07-2014 *CBC with Differential *CBC with Differential [facility] Work Phone: Start: 10-21-2014 End: 06-07-2014 *CBC with Differential *CBC with Differential [facility] Work Phone: Start: 10-19-2014 End: 06-07-2014 Thyrotropin Qn *TSH [facility] Work Phone: Start: 10-19-2014 End: 06-07-2014 Thyroid stimulating hormone (TSH) *TSH [facility] Work Phone: Start: 06-03-2014 End: 06-06-2014 *ASHLEY *ASHLEY [facility] Work Phone: Start: 06-03-2014 End: 06-06-2014 *CBC with Differential *CBC with Differential [facility] Work Phone: Start: 06-03-2014 End: 06-06-2014 *CMP Complete Metabolic Panel *CMP Complete Metabolic Panel [facility] Work Phone: Start: 06-03-2014 End: 06-06-2014 Acute hepatitis panel Hepatitis Panel [facility] Work Phone: Start: 06-03-2014 End: 06-06-2014 Chest x-ray X-Ray, Chest, PA & Lateral [facility] Work Phone: Start: 06-03-2014 End: 06-06-2014 CRP High sensitivity method mass conc *CRP - C-Reative Protein [facility] Work Phone: Start: 06-03-2014 End: 06-06-2014 ESR Velocity (Bld) *Sedimentation Rate (ESR) [facility] Work Phone: Start: 06-03-2014 End: 06-06-2014 HCG ( test) Ql *PREGS - Qualitative, Serum [facility] Work Phone: Start: 06-03-2014 End: 06-06-2014 Urinalysis complete panel - Urine *UAC- Urinalysis, Complete w/ Micro [facility] Work Phone: Start: 06-03-2014 End: 06-06-2014 *ASHLEY *ASHLEY [facility] Work Phone: Start: 06-03-2014 End: 06-06-2014 *CBC with Differential *CBC with Differential [facility] Work Phone: Start: 06-03-2014 End: 06-06-2014 *CMP Complete Metabolic Panel *CMP Complete Metabolic Panel [facility] Work Phone: Start: 06-03-2014 End: 06-06-2014 Acute hepatitis panel Hepatitis Panel [facility] Work Phone: Start: 06-03-2014 End: 06-06-2014 C reactive protein (hsCRP) *CRP - C-Reative Protein [facility] Work Phone: Start: 06-03-2014 End: 06-06-2014 Chest x-ray X-Ray, Chest, PA & Lateral [facility] Phone: Start: 06-03-2014 End: 06-06-2014 Choriogonadotropin ( test) [Presence] in Serum or Plasma *PREGS - Qualitative, Serum [facility] Phone: Start: 06-03-2014 End: 06-06-2014 Erythrocyte sedimentation rate *Sedimentation Rate (ESR) [facility] Phone: Start: 06-03-2014 End: 06-06-2014 Urinalysis complete panel - Urine *UAC- Urinalysis, Complete w/ Micro [facility] Phone: Start: 12-30-2013 End: 06-06-2014 Mammogram, Screening, both breasts Mammogram, Screening, both breasts [facility] Work Phone: Start: 12-30-2013 End: 06-06-2014 Mammogram, Screening, both breasts Mammogram, Screening, both breasts [facility] Phone: Start: 10-20-2013 End: 10-21-2013 *CBC with Differential *CBC with Differential [facility] Work Phone: Start: 10-20-2013 End: 10-20-2013 Follow Up Appt 1 year Follow Up Appt 1 year [facility] Work Phone: Start: 10-20-2013 End: 10-21-2013 Thyrotropin Qn *TSH [facility] Work Phone: Start: 10-20-2013 End: 10-21-2013 *CBC with Differential *CBC with Differential [facility] Phone: Start: 10-20-2013 End: 10-20-2013 Follow Up Appt 1 year Follow Up Appt 1 year [facility] Phone: Start: 10-20-2013 End: 10-21-2013 Thyroid stimulating hormone (TSH) *TSH [facility] Phone: Start: 03-16-2009 MMR Vaccines (1 of 1 - Standard series) MMR Vaccines (1 of 1 - Standard series) [facility] Start: 2006 Screening for malignant neoplasm of breast Mammogram [facility] Start: 08-03-1987 Screening for malignant neoplasm of cervix [facility] Start: 1985 Hepatitis B Vaccines (1 of 3 - 19+ 3-dose series) Hepatitis B Vaccines (1 of 3 - 19+ 3-dose series) [facility] Start: 1985 Pneumococcal vaccination Pneumococcal Vaccine (1 of 2 - PCV) [facility] Start: 1984 Hepatitis C screening Hepatitis C Screening [facility] Start: 1972 Pneumococcal Vaccine: Pediatrics (0 to 5 Years) and At-Risk Patients (6 to 64 Years) (1 - PCV) Pneumococcal Vaccine: Pediatrics (0 to 5 Years) and At-Risk Patients (6 to 64 Years) (1 - PCV) [facility] Start: 1972 Pneumococcal Vaccine: Pediatrics (0 to 5 Years) and At-Risk Patients (6 to 64 Years) (1 of 2 - PCV) Pneumococcal Vaccine: Pediatrics (0 to 5 Years) and At-Risk Patients (6 to 64 Years) (1 of 2 - PCV) [facility] Start: 1966 Hepatitis B Vaccines (1 of 3 - 3-dose series) Hepatitis B Vaccines (1 of 3 - 3-dose series) [facility] Start: 1966 HIV screening HIV Screening [facility] Start: 1966 Lipid panel Lipid Panel [facility] Start: 1966 Screening for malignant neoplasm of colon [facility] Start: 1966 Thyroid stimulating hormone measurement TSH Level [facility] Start: 1966 Yearly Adult Physical Yearly Adult Physical [facility] Androstenedione [Mas s/volume] in Serum or Plasma [facility] Blood chemistry [facility] Work Phone: Dehydroepiandrostero ne sulfate (DHEA-S) [Mass/volume] in Serum or Plasma [facility] MR Brain WO and W contrast IV [facility] MR Lower extremity WO contrast [facility] Path report.final Dx Spec [facility] Patient Education [facility] Work Phone: Patient referral [facility] Work Phone: Sex hormone binding globulin [Moles/volume] in Serum or Plasma [facility] Testosterone Free [M ass/volume] in Serum or Plasma [facility] Testosterone measurement [facility] US Pelvis [facility] Zinc [Mass/volume] i n Serum or Plasma [facility] Immunizations Immunization Date Immunization Notes Care Provider Fa cility 02-12-2024 influenza, seasonal, injectable, preservative free Dr. Ruchi Wu MD Work Phone: [facility] 02-12-2024 influenza virus vaccine, unspecified formulation Morgan Lanier MD Work Phone: [facility] Work Phone: 12-19-2023 measles, mumps and rubella virus vaccine Dr. Ruchi Wu MD Work Phone: [facility] 11-14-2023 measles, mumps and rubella virus vaccine Dr. Ruchi Wu MD Work Phone: [facility] 01-03-2023 influenza, injectabl e, quadrivalent, preservative free Dr. Ruchi Wu Work Phone: [facility] 01-03-2023 influenza virus vaccine, unspecified formulation Morgan Lanier MD Work Phone: [facility] Work Phone: 01-21-2022 influenza, injectabl e, quadrivalent, preservative free Dr. Ruchi Wu Work Phone: [facility] 01-21-2022 influenza, seasonal, injectable Dr. Ruchi Wu Work Phone: [facility] 01-11-2022 Elsa Fontaine nt Booster Dr. Ruchi Wu Work Phone: [facility] 06-06-2021 tetanus toxoid, reduced diphtheria toxoid, and acellular pertussis vaccine, adsorbed Dr. Fabián Ruiz Work Phone: [facility] 01-11-2019 Flucelvax Quad [phone] (PF) (flu vac qs 2019(4 yr up)CD(PF)) 60 mcg ([address] Fabián Ruiz Work Phone: [facility] Work Phone: Payers Date Payer Category Payer [employer] [id number] 2024 Unknown [id number] 2024 Self-pay [id number] 2023 Private Health Insurance [employer] [id number] 2023-Present [address] [place] [address] [id number] 2022 Managed Care (Private) 1.2.8 [id number] 2022 Unknown 2022 Unknown [id number] 2016 Private Health Insurance [id number] 2014 Unknown [id number] 2007 Unknown MED [facility] [id number] 1966 Unknown [id number] [id number] .356 1966 Unknown [id number] 2.16.840.1.676713.3.579.2 .356 1966 Unknown [id number] 2.16.840.1.179349.3.579.2 .356 1966 Unknown [id number] 2.16.840.1.719131.3.579.2 .356 1966 Unknown [id number] 2.16.840.1.373834.3.579.2 .356 1966 Unknown [id number] 2.16.840.1.836917.3.579.2 .159 1966 Unknown [id number] 2..840.1.409064.3.579.2 .1244 1966 Unknown [id number] 2.16.840.1.567145.3.579.2 .1244 1966 Unknown [id number] 2.16.840.1.850349.3.579.2 .1244 Private Health Insurance [id number] Private Health Insurance [id number] Unknown [id number] Unknown [id number] 2.16.840.1.017098.3.579.2 .462 Unknown [id number] 2.16.840.1.551311.3.579.2 .462 Unknown [id number] 2.16.840.1.561320.3.579.2 .462 Unknown [id number] 2.16.840.1.387321.3.579.2 .462 Unknown [id number] 2.16.840.1.349832.3.579.2 .462 Unknown [id number] 2.16.840.1.273725.3.579.2 .462 Unknown [id number] 2.16.840.1.485523.3.579.2 .462 Unknown [id number] 2.16.840.1.324551.3.579.2 .462 Unknown [id number] 2.16.840.1.836806.3.579.2 .462 Unknown [id number] 2.16.840.1.728341.3.579.2 .462 Unknown [id number] 2.16.840.1.523238.3.579.2 .462 Unknown [id number] 2.16.840.1.193435.3.579.2 .462 Unknown [id number] 2.16.840.1.327192.3.579.2 .462 Unknown [id number] 2.16.840.1.616444.3.579.2 .462 Unknown [id number] 2.16.840.1.879981.3.579.2 .462 Unknown [id number] 2.16.840.1.645469.3.579.2 .462 Unknown [id number] 2.16.840.1.961507.3.579.2 .462 Unknown [id number] 2.16.840.1.057130.3.579.2 .462 Social History Date Type Detail Facility Start: 06-04-2023 End: 11-03-2024 Never smoker Never smoker [facility] [address] [facility] Work Phone: Start: 07-17-2021 End: 06-11-2023 Tobacco smoking status NHIS Unknown if ever smoked [facility] Start: 08-10-2018 Non-smoker [facility] Start: 1965 Sex Assigned At Female [facility] Start: 03-12-2023 Gender identity Identifies as female gender (finding) [facility] Work Phone: Start: 06-04-2023 End: 11-03-2024 Sexual orientation Not on file [facility] Start: 03-02-2023 End: 06-30-2024 Exposure to SARS-CoV-2 (event) Not sure [facility] Start: 06-04-2023 End: 01-05-2024 Tobacco smoking status NHIS Never smoked tobacco [facility] Work Phone: Start: 06-04-2023 Tobacco use and exposure Smokeless tobacco non-user [facility] Work Phone: Start: 06-28-2024 Sex Female (finding) [facility] Start: 02-23-2022 Sex Female [facility] NEGATED: Highlighted row [facility] Goals Date Patient Goal Desired Activity /State Mental Status Date Assessment Result Facility 10-22-2022 Cognitive function Voice/Name [facility] Work Phone: 11-12-2021 Cognitive function Voice/Name [facility] Work Phone: 04-24-2021 Cognitive function Voice/Name [facility] Work Phone: Clinical Notes 07-11-2019 to 11-03-2024 Morgan Lanier MD - 11/03/2024 2:40 PM EDTMorgan Lanier MD - 06/30/2024 2:20 PM EDT Note Date & Type Note Facility 11-03-2024 History of Present illness Narrative She presents for follow-up evaluation and reports having discontinued mycophenolate and Cymbalta because of side effects. She has not recurrent upper respiratory tract infection symptoms as well as myalgias since 08/2024. She was treated with antibiotics and with prednisone. She stopped the Cymbalta 1 month ago because of having nightmares, teeth grinding, and nausea. The teeth grinding nausea and nightmares have decreased since the Cymbalta was stopped. She notes increased pain and burning paresthesia in the lower extremities. She has persistent numbness around her mouth. She continues to have headaches. She has sensations of weakness in the lower extremities. There is slight deformity of the crown of the tooth to the left of the left lower incisor. There are no oral ulcers. The neck is supple. The lungs are clear to auscultation. The heart is regular rate and rhythm with normal heart sounds. Abdomen is benign. Extremities are without edema. Neurological examination shows her to be alert. There is normal muscle strength in the upper and lower extremities except for slight weakness of the left hip flexor relative to the right hip flexor. MRI cervical spine (07/2021) moderate degenerative disc narrowing at C5/C6 and mild degenerative disc narrowing at C4/C5. Mild to moderate disc bulge at C3/C4 with mild bilateral neuroforaminal narrowing. There is mild facet arthropathy and right greater than left uncovertebral hypertrophy with mild disc bulge at C4/C5 mild disc bulge at C5/C6 with moderate right and mild to moderate left neuroforaminal narrowing. MRI brain (07/2021) trace to small nonspecific white matter hyperintensities. Rightward deviated nasal septum. No acute infarct mass effect or recent hemorrhage. Laboratory (10/26/2022) BUN 7, creatinine 0.64, glucose 81, albumin 4.4, calcium 9.7, alkaline phosphatase 49, AST 23, ALT 13, CRP <3.0, WBC 3.4, hemoglobin 11.6, hematocrit 34.8, MCV 91.6, MCHC 33.3, platelets 248, , (06/30/2024) hepatitis C antibody nonreactive, hepatitis B surface antigen nonreactive, hepatitis B surface antibody nonreactive, hepatitis B core antibody IgM nonreactive, ASHLEY 1: 80, JAYLA panel negative, QuantiFERON TB 0. 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 She has burning paresthesia in the lower extremities numbness in the perioral region suspicious for central nervous system involvement. She had recurrent infections with mycophenolate and bruxism's with Cymbalta. Try Benlysta 200 mg subcutaneous injections prior to considering therapy. She is to continue hydroxychloroquine 200 mg daily. She is to remain off mycophenolate for now. She is to start Gabapentin 100 mg at bedtime. She is to have repeat laboratory for ASHLEY panel, CRP, and CPK. She is to return at the next available office appointment. documented in this encounter [facility] Work Phone: 09-20-2024 Radiology Diagnostic study note [facility] Imaging Services [address] [place] [address] Chest PA and Lateral MR#: [id number] Acct: [id number] Name: CHASITY ARIAS Rep #: [id number] : 1965 F 59 From: Mercedes Arnett MD PCP: Dr. Fabián Ruiz DO Status: REG CLI Study:Chest PA and Lateral Date of Exam: 09/20/24 Exam# [id number] Ordering Dr: [facility] PA PA PROCEDURE: CHEST PA AND LATERAL 09/20/2024 REASON FOR EXAM: COUGH TECHNIQUE: CHEST PA AND LATERAL COMPARISON: Chest radiographs on 01/05/2024 and 09/05/2021 FINDINGS: Hardware: None Mediastinum: The mediastinal contour is stable. Lungs: No focal consolidation or pleural effusion. Bones: Degenerative changes are identified within the thoracic spine. RAD/Chest PA and Lateral IMPRESSION: No acute cardiopulmonary abnormality. Reading Location: [id number] CC: Dr. Fabián Ruiz DO; KALYANI Sheikh ~ Radiologic Tech: Signed [facility] 06-30-2024 History of Present illness Narrative She presents for follow-up evaluation and had complaints of mild pain involving her hands and hips. She also notes numbness around the mid to lower face bilaterally and hands bilaterally as well as pain in her neck. She has been having frequent headaches as well as migraine-like headaches associated with some transient right-sided vision disturbance. She notes that the migraine headaches have been more frequent and more persistent than they had been in the past she has been taking Nurtec, Depakote, and Ubrelvy without significant improvement in the headache symptoms. However, she noted significant improvement in the headache as well as musculoskeletal symptoms after taking a course of prednisone. The symptoms recurred after the prednisone course was completed. She has been having significant I am mouth and skin dryness. The sclera are not injected. The oral mucosa does not have any ulcerations there is good salivary pool. There is mild tenderness in the upper posterior neck otherwise the neck is supple. The lungs, heart, abdomen, and extremities are benign. The musculoskeletal examination does not show any joint effusions. There is preserved passive range of motion of the upper and lower extremity joints. Laboratory (06/30/2024) hepatitis B core antibody IgM nonreactive, hepatitis B surface antibody nonreactive, hepatitis B surface antigen nonreactive, hepatitis C antibody nonreactive, (06/11/2024) WBC 3.7, hemoglobin 11.5, hematocrit 35.0, MCV 93.3, MCHC 33.9, platelets 242. She has history of Reyez's esophagus, leukopenia, normocytic anemia, L3/L4 disc herniation with a left L3 nerve impingement, systemic lupus erythematosus and sicca symptoms suggestive of Sjogren syndrome. She has numbness about her face and her hands suspicious for peripheral neuropathy likely related to Sjogren syndrome. She is to continue mycophenolate 250 mg every morning and 500 mg every evening, hydroxychloroquine 200 mg daily. She is a continue with plans for prednisone taper prescribed by the neurologist. She does have laboratory for evaluation for possibly starting Rituxan for treatment of neuropathy related to Sjogren syndrome. She is to return at the next available office appointment. documented in this encounter [facility] Work Phone: 06-29-2024 Evaluation note Diagnosis Onset Date Resolution Hair loss chronic June 29 10:00am Migraine headache with aura chronic June 29, 2024 10:00am [facility] Work Phone: 1([phone] 304-370301-23-2025 Evaluation note* Diagnosis Onset Date Resolution Status Admit Date Hair loss chronic April 22, 2024 8:00am Migraine headache with aura chronic April 22, 2024 8:00am [facility] Work Phone: 1([phone] 239-243411-06-2024 History of Present illness Narrative* Morgan Lanier MD - 02/04/2024 3:00 PM EST She presents for follow-up evaluation with plans on traveling to [facility]. She was given an MMR vaccination that was complicated by rather diffuse rash and some difficulty swallowing. She was treated with prednisone in the emergency department with subsequent improvement in the rash. She was off mycophenolate during most of the prednisone therapy until the prednisone was tapered from 40 mg daily to 10 mg daily and subsequently discontinued. She resumed the mycophenolate. She has not noted any unusual symptoms since that time. She is to avoid taking the yellow fever vaccination because it is a live virus while on the mycophenolate therapy. She is appears to be in generally good health alert and oriented. No residual rash. Laboratory (02/03/2024) WBC 3.3, hemoglobin 11.8, hematocrit 36.9, MCV 93.9, MCHC 32.0, platelets 262, glucose 87, BUN 6, creatinine 0.60, CRP <2.90, alkaline phosphatase 71, AST 15, ALT 18, TSH 0.748. She has systemic lupus erythematosus with history of mucosal ulcerations, rash, arthritis, sicca syndrome, asthma, rightward elbow 3/L4 disc herniation with left L3 nerve root impingement, Reyez's esophagus, leukopenia, normocytic anemia. She is to hold the hydroxychloroquine while taking the antimalarial medication for the trip to [facility]. She is to continue mycophenolate 250 mg every morning and 500 mg every evening. She is to return at next available office appointment. documented in this [facility] Work Phone: 1([phone]) 758-361203-06-2024 History of Present illness Narrative* Morgan Lanier MD - 06/04/2023 3:00 PM EST Her mother with CLL in 01/2023. She has some mild chronic discomfort involving her hands and knees. She has not noted any unusual rashes. She has recurrent small slightly erythematous scaly patches on her arms and legs. She continues to take mycophenolate 250 mg every morning and 500 mg every evening and hydroxychloroquine 200 mg once per day. She has dry eyes and dry mouth. She notes tenderness in the upper neck bilaterally just at the base of the jaw. There is pain with eating. There is good passive range of motion of the upper and lower extremity joints except for some slight limitation to abduction of the shoulders. The hands are not swollen. The lungs, heart, abdomen, and extremities are benign. There is tenderness overlying the posterior aspect of the submandibular glands or lymph node enlargement in the neck bilaterally She has systemic lupus erythematosus that is fairly stable with a history of mucosal ulcerations, rashes, photosensitivity. Most recent ASHLEY was negative. She has history of asthma and recurrent urinary tract infections. She is referred to ENT for evaluation of the bilateral submandibular gland region tenderness. She is referred for DEXA bone density study for evaluation for postmenopausal osteoporosis. She is to return with hydroxychloroquine 200 mg once per day, mycophenolate 200 mg once per day and 500 mg every evening. She is to return at the next available office appointment. documented in this [facility] Work Phone: 1([phone]) 292-844212-13-2023 History of Present illness Narrative* Morgan Lanier MD - 03/12/2023 2:00 PM EST PP: 57 year-old female with history of systemic lupus erythematosus, Annette's thyroiditis, asthma. CC: Recurrent musculoskeletal pain. [place]: She was diagnosed with systemic lupus erythematosus approximately 25 years ago with the of her son. She had recurrent rashes, recurrent mouth sores, and joint pain. She had elevated ASHLEY levels in the past as well as has a history of 1 early trimester miscarriage. She has not had anypleural effusions or blood clots. She had was [...] arthralgia, photosensitivity, Raynaud's phenomena, mucosal ulcers, positive ASHLEY); surgeries: Tonsillectomy and adenoidectomy, D&C, tubal ligation, D&C with uterine ablation (2017), right carpal tunnel surgery (05/2019), left carpal [...] passive range of motion of the upper andlower extremity joints without joint effusions.There is tenderness [...] next available office appointment. documented in this [facility] Work Phone: 1(174) 188-113908-17-2023 History of Present illness Narrative* She developed significant pain in the left knee and left posterior calf after participating in the [employer] run 3 weeks ago. She was evaluated by orthopedics and found to have a peroneal tendon tear in theleft calf and continues to have a left popliteal cyst. She is planning to have MRI scan of the leftknee for further evaluation. She notes otherwise that the pain in her joints have been under improved control with taking mycophenolate and hydroxychloroquine. * The lungs, heart, abdomen, and extremities are benign. The musculoskeletal examination does not show any joint effusions. There is good passive range of motion of the upper and lower extremity jointswith slight hyperextension of the knees. There is no tenderness to palpation of the ankles or heels. * Laboratory (11/15/2022) WBC 3.7, hemoglobin 12.2, hematocrit 36.7, MCV 94.8, MCHC 33.2, platelets 220, sodium 128, potassium 4.1, BUN 7, creatinine 0.56, glucose 82, AST 15, ALT 17, alkaline phosphatase 40, CRP <2.90. * She has history of L3/L4 disc herniation, right L3 nerve root impingement, migraine, GERD, Reyez's esophagus, negative HLA-B27, and systemic lupus erythematosus. She has mild leukopenia, mild hyponatremia. * She is to continue hydroxychloroquine 200 mg daily and mycophenolate 250 mg twice daily. She is to have laboratory for follow-up of mycophenolate therapy. She is to return in 4 to 6 months. [facility] Work Phone: [phone]) 248-834406-14-2023 NotePap Smear Specimen AdequacyJune 2022 5:23pmComment.Satisfactory for evaluation. Endocervical and/or squamous metaplasticcells (endocervical component)are present.[facility] A#[id number]. [facility] HospitalComp[facility] on above:Satisfactory for evaluation. Endocervical and/or squamous metaplasticcells (endocervical component)are present.09-11-2022 NotePap Smear Specimen AdequacyJune 2022 5:23pmComment.Satisfactory for evaluation. Endocervical and/or squamous metaplasticcells (endocervical component)are present.[facility] A#[id number]. Vincent HospitalCompine [facility] on above:Satisfactory for evaluation. Endocervical and/or squamous metaplasticcells (endocervical component)are present.09-11-2022 NotePap Smear Specimen AdequacyJune 2022 5:23pmComment.Satisfactory for evaluation. Endocervical and/or squamous metaplasticcells (endocervical component)are present.[facility] INTER[facility]ACED A#[id number] Health [facility] on above:Satisfactory for evaluation. Endocervical and/or squamous metaplasticcells (endocervical component)are present.09-11-2022 NotePap Smear Specimen AdequacyJune 2022 5:23pmComment.Satisfactory for evaluation. Endocervical and/or squamous metaplasticcells (endocervical component)are present.[facility] A#[id number]. Vincent HospitalComment on above:Satisfactory for evaluation. Endocervical and/or squamous metaplasticcells (endocervical component)are present.09-11-2022 NotePap Smear Specimen AdequacyJune 2022 5:23pmComment.Satisfactory for evaluation. Endocervical and/or squamous metaplasticcells (endocervical component)are present.[facility] A#[id number]. Vincent HospitalComment on above:Satisfactory for evaluation. Endocervical and/or squamous metaplasticcells (endocervical component)are present.09-11-2022 NotePap Smear Specimen AdequacyJune 2022 5:23pmComment.Satisfactory for evaluation. Endocervical and/or squamous metaplasticcells (endocervical component)are present.[facility] A#[id number]. Vincent HospitalComment on above:Satisfactory for evaluation. Endocervical and/or squamous metaplasticcells (endocervical component)are present.03-31-2021 History of Present illness Narrative* This is a 56 year old female presenting with complaints of headaches. * Starting in March 2021, the patient was performing a yoga maneuver during which she was upside down. She then developed a grayish circular visual disturbance lasting for 2 days along with a severe right sided headache and both tongue and bilateral facial numbness (of the lower part of the face). * Since then, she has been having constant headaches described as a right sided aching pain. Once a week approximately, she will then see the right sided visual graying disturbance along with a more severe and throbbing in quality headache with associated nausea, photophobia, and phonophobia. She was prescribed sumatriptan 25 mg which she feels does not provide any relief. * She continues to have constant tongue and bilateral facial numbness (of the lower part of the face). * Since March, the patient has also been having [...] course their way through both legs frequently. [id number]ibm[facility] [address] DO Work Phone: 1([phone]) 772-983101-01-2022 History of Present illness Narrative* This is a 56 year old female presenting for follow up. * Starting in March 2021, the patient was performing a yoga maneuver during which she was upside down. She then developed a grayish circular visual disturbance lasting for 2 days along with a severe right sided headache and both tongue and bilateral facial numbness (of the lower part of the face). * Since then, she has been constant headaches described as a right sided aching pain. At one point, she also saw a right sided visual graying disturbance during one of her headaches. Sometimes, her headaches become more severe with associated nausea, photophobia, phonophobia, and dizziness. * She has also been having numbness and tingling [...] of either leg but she reports that itdoes not bother her much. * She reports improvement in the intensity of her headaches while taking Topamax 50 mg BID but she still gets them (albeit milder) on a daily basis. Sometimes, she will also get a more intense headaches (i.e.migraine). Sumatriptan 50 mg alleviates the migraines but it makes her very drowsy - as such,she cannot take it at work or elsewhere outside of the home. 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 FY-[facility]qfl[facility] Work Phone: [phone] History of Present illness Narrative* Patient referred by Dr. Eaton history significant for SLE, hypothyroidism, and GERD here today to discuss headache. Reports one brother with history of positional headaches, told that he had white matter disease. * She got first migraines starting 2 years ago that occurred going from dark to light environment, was unable to see out of right eye completely, had a horrible headache, lasted 15 minutes and passed after sitting down. Occurred again one year later lasting 15 minutes. * Headaches described as right forehead, sometimes can occur in center, sometimes to jain or back of head. Headaches associated with nausea, dizziness, photophobia/phonophobia. * Triggers include light (big changes in light), alcohol (avoiding), weather (cold), * Denies triggers to sound, smells, stress, sleep changes, certain foods. Has had no periods for 5 years. * Reports 1 severe headache day per week, put with daily headache 03/2021. Worst headache pain in pastmonth was 8/10. Pushes through the pain. * On 04/21/2021 with horrible headache, unable to see out of right eye (described as a rudolph splotches or covering entire vision area on right eye), then after 15 minutes it went away. * Occurred while doing aerial yoga, taken home, persisted to the next day, was tested for covid and sent home. Following Friday completed testing with manager social responsibility who ordered a CT scan, headache worsened [...] notice the numbness and tingling with full bladder. * Also reports constant dizziness, balance off since 02/2021. Started yoga during winter, during certain poses with head down gets dizzy and nausea afterwards with headache. Completed dilated eye exam with some scarring, unsure if related to dizziness or headaches. * Stopped plaquenil (was taking for two decades) and started cellcept taking for 6 months. Started tohave thyroid issues recently as well. Has stopped all supplements. * Sleep has been limited, not well rested, ashwa ganda helpful at first. History depression. Reports 3 cups Caffeine daily, helps for headaches, can get withdrawal headaches. * Has tried the following medications and treatments: * Past Meds: * Duloxetine no side effects, was used for SLE related pain, stopped over a year ago. * Record Review: * 06/06/2021 CT cervical spine impression: * No fracture or malalignment. * Multilevel degenerative disc and endplate changes, most notably at C5-6 and C3-4 levels. * Moderate right greater than left facet arthropathy C3-4 and C4-5 levels. * 06/06/2021 CT brain without contrast: * Impression: * No acute intracranial pathology. * Variant sinus anatomy as above with no evidence of sinusitis. * 04/24/2021 CTA head and neck with contrast impression: * Normal CTA head and neck with contrast. * This note was partially generated using the [email or web address] voice recognition system. There may be typographical errors, spelling, or punctuation errors that were not corrected prior to committing the note tothe medical record. [facility] Work Phone: [phone] History of Present illness Narrative* Patient referred by Dr. Eaton history significant for SLE, hypothyroidism, and GERD here today to discuss headache. Reports one brother with history of positional headaches, told that he had white matter disease. * She got first migraines starting 2 years ago that occurred going from dark to light environment, was unable to see out of right eye completely, had a horrible headache, lasted 15 minutes and passed after sitting down. Occurred again one year later lasting 15 minutes. * Headaches described as right forehead, sometimes can occur in center, sometimes to jain or back of head. Headaches associated with nausea, dizziness, photophobia/phonophobia. * Triggers include light (big changes in light), alcohol (avoiding), weather (cold), * Denies triggers to sound, smells, stress, sleep changes, certain foods. Has had no periods for 5 years. * Reports 1 severe headache day per week, put with daily headache 03/2021. Worst headache pain in pastmonth was 8/10. Pushes through the pain. * On 04/21/2021 with horrible headache, unable to see out of right eye (described as a rudolph splotches or covering entire vision area on right eye), then after 15 minutes it went away. * Occurred while doing aerial yoga, taken home, persisted to the next day, was tested for covid and sent home. Following Friday completed testing with manager social responsibility who ordered a CT scan, headache worsened [...] body since 03/2021. Feels tingling and numbness 21/10 since 03/2021. Fine motor is off, tying shoes is more difficult 03/2021. Has been having memory difficulties 03/2021. Gets up 5 times a night to urinate, will notice the numbness and tingling with full bladder. * Also reports constant dizziness, balance off since 02/2021. Started yoga during winter, during certain poses with head down gets dizzy and nausea afterwards with headache. Completed dilated eye exam with some scarring, unsure if related to dizziness or headaches. * Stopped plaquenil (was taking for two decades) and started cellcept taking for 6 months. Started tohave thyroid issues recently as well. Has stopped all supplements. * Sleep has been limited, not well rested, ashwa ganda helpful at first. History depression. Reports 3 cups Caffeine daily, helps for headaches, can get withdrawal headaches. * Has tried the following medications and treatments: * Past Meds: * Duloxetine no side effects, was used for SLE related pain, stopped over a year ago. * Record Review: * 06/06/2021 CT cervical spine impression: * No fracture or malalignment. * Multilevel degenerative disc and endplate changes, most notably at C5-6 and C3-4 levels. * Moderate right greater than left facet arthropathy C3-4 and C4-5 levels. * 06/06/2021 CT brain without contrast: * Impression: * No acute intracranial pathology. * Variant sinus anatomy as above with no evidence of sinusitis. * 04/24/2021 CTA head and neck with contrast impression: * Normal CTA head and neck with contrast. * This note was partially generated using the Dragon voice recognition system. There may be typographical errors, spelling, or punctuation errors that were not corrected prior to committing the note tothe medical record. [facility] [address] Work Phone: chigm complaint Narrative - Reported* F/U * Neurologic Evaluation. * Pt here for tests results. ZZ-Plxqwhmas-Br[address]kly[address] Work Phone: chirl complaint+Reason for visit Narrative* Chief Complaint HEADACHE/EAR PAIN/CO VID TEST COVID-19 numbness/tingling SCREENING CLINICAL NUTRITION MANAGER, EST. CARE -NPP MAILED LACERATION, HEAD INJURY EORDER ESOGUARD Reason for Visit Encounter for screen ing for COVID-19 Eye disorder Headache Vertigo Hypothyroidism Systemic lupus erythematosus [facility] Work Phone: Evaluation note* Diagnosis Onset Date Resolution Status Encounter for screening for COVID-19 acute Eye disorder acute Headache acute Vertigo acute Hypothyroidism chronic Systemic lupus erythematosus [facility] Work Phone: Evaluation note* Diagnosis Onset Date Resolution Status Eye disorder acute Headache acute Vertigo acute Hypothyroidism chronic Systemic lupus erythematosus chronic Irritant contact dermatitis due to plant acute Abdominal fullness acute GONZALES (dyspnea on exertion) ac [place] Early satiety acute Leukocytosis acute [facility] Work Phone: Evaluation note* Diagnosis Onset Date Resolution Status Eye disorder acute Headache acute Vertigo acute Hypothyroidism chronic Systemic lupus erythematosus chronic Irritant contact dermatitis due to plant acute Abdominal fullness acute GONZALES (dyspnea on exertion) ac [place] Early satiety acute Leukocytosis acute Encounter for routine gynecological examination noneactive [facility] Work Phone: Evaluation note* Diagnosis Onset Date Resolution Status Abdominal fullness acute GONZALES (dyspnea on exertion) ac [place] Early satiety acute Leukocytosis acute Encounter for routine gynecological examination noneactive Abdominal fullness acute Anxiety and depression chron ic Eye disorder chronic Headache chronic Systemic lupus erythematosus chronic Dysphagia acute GERD (gastroesophageal reflux disease) acute Systemic lupus erythematosus [facility] Work Phone: Evaluation note* Diagnosis Onset Date Resolution Status Abdominal fullness acute GONZALES (dyspnea on exertion) ac [place] Early satiety acute Leukocytosis acute Encounter for routine gynecological examination noneactive Abdominal fullness acute Anxiety and depression chron ic Eye disorder chronic Headache chronic Systemic lupus erythematosus chronic Dysphagia acute GERD (gastroesophageal reflux disease) acute Systemic lupus erythematosus chronic Dysuria acute Reyez's esophagus acute Dysuria acute Headache chronic Hypokalemia chronic Seasonal affective disorder chronic [facility] Work Phone: Evaluation note* Diagnosis Onset Date Resolution Status Dysphagia acute GERD (gastroesophageal reflux disease) acute Systemic lupus erythematosus chronic Dysuria acute Reyez's esophagus acute Dysuria acute Headache chronic Hypokalemia chronic Seasonal affective disorder [facility] Work Phone: Evaluation note* Diagnosis Onset Date Resolution Status Dysuria acute Reyez's esophagus acute Dysuria acute Headache chronic Hypokalemia chronic Seasonal affective disorder [facility] Work Phone: Evaluation note* Diagnosis Onset Date Resolution Status Dysuria acute Reyez's esophagus acute Dysuria acute Headache chronic Hypokalemia chronic Seasonal affective disorder chronic Hair loss chronic Hypothyroidism chronic Migraine headache chronic Systemic lupus erythematosus [facility] Work Phone: Evaluation note* Diagnosis Onset Date Resolution Status Hair loss chronic Hypothyroidism chronic Migraine headache chronic Systemic lupus erythematosus chronic Acute upper respiratory infection acute Contact with or suspected ex posure to other viral communicable disease acute Migraine headache chronic Systemic lupus erythematosus chronic [facility] Work Phone: Evaluation note* Diagnosis Onset Date Resolution Status Hair loss chronic Hypothyroidism chronic Migraine headache chronic Systemic lupus erythematosus chronic Acute upper respiratory infection acute Contact with or suspected ex posure to other viral communicable disease acute Migraine headache chronic Systemic lupus erythematosus chronic New daily persistent headache acute Hair loss chronic Migraine headache with aura chronic [facility] Work Phone: Evaluation note* Diagnosis Onset Date Resolution Status Hair loss chronic Hypothyroidism chronic Migraine headache chronic Systemic lupus erythematosus chronic Acute upper respiratory infection acute Contact with or suspected ex posure to other viral communicable disease acute Migraine headache chronic Systemic lupus erythematosus chronic New daily persistent headache acute Hair loss chronic Migraine headache with aura chronic Urinary tract infection none active [facility] Work Phone: Evaluation note* Diagnosis Onset Date Resolution Status New daily persistent headache acute Hair loss chronic Migraine headache with aura chronic Urinary tract infection none active Encounter for routine gynecological examination noneactive [facility] Work Phone: Evaluation note* Diagnosis Onset Date Resolution Status Urinary tract infection none active Encounter for routine gynecological examination noneactive Postmenopausal bleeding acut e Hair loss chronic Migraine headache with aura chronic Postmenopausal bleeding acut e [facility] Work Phone: Evaluation note* Diagnosis Onset Date Resolution Status Encounter for routine gynecological examination noneactive Postmenopausal bleeding acut e Hair loss chronic Migraine headache with aura chronic Postmenopausal bleeding acut e Calf pain acute Rupture of plantaris tendon acute [facility] Work Phone: Evaluation note* Diagnosis Onset Date Resolution Status Encounter for routine gynecological examination noneactive Postmenopausal bleeding acut e Hair loss chronic Migraine headache with aura chronic Postmenopausal bleeding acut e Calf pain acute Rupture of plantaris tendon acute Anxiety and depression chron ic GERD (gastroesophageal reflux disease) chronic Hypothyroidism chronic Migraine headache chronic Systemic lupus erythematosus chronic [facility] Work Phone: Evaluation note* Diagnosis Onset Date Resolution Status Hair loss chronic Migraine headache with aura chronic Postmenopausal bleeding acut e Calf pain acute Rupture of plantaris tendon acute Anxiety and depression chron ic GERD (gastroesophageal reflux disease) chronic Hypothyroidism chronic Migraine headache chronic Systemic lupus erythematosus chronic [facility] Work Phone: Evaluation note* Diagnosis Systemic lupus erythematosus, unspecified SLE type, unspecified organ involvement status ([facility])- Primary documented in this encounter [facility] Work Phone: Evaluation note* Diagnosis Screening for osteoporosis- Primary Special screening for osteoporosis Sjogren's syndrome, with unspecified organ involvement ([facility]) documented in this encounter [facility] Work Phone: Evaluation note* Diagnosis Onset Date Resolution Status Hair loss chronic Migraine headache with aura chronic [facility] Work Phone: Evaluation note* Diagnosis Onset Date Resolution Status Hair loss chronic Migraine headache with aura chronic Health care maintenance acut e Anxiety and depression chron ic GERD (gastroesophageal reflux disease) chronic Hypothyroidism chronic Migraine headache chronic Swallowing problem chronic Systemic lupus erythematosus chronic [facility] Work Phone: Evaluation note* Diagnosis Onset Date Resolution Status Hair loss chronic Migraine headache with aura chronic Health care maintenance acut e Anxiety and depression chron ic GERD (gastroesophageal reflux disease) chronic Hypothyroidism chronic Migraine headache chronic Swallowing problem chronic Systemic lupus erythematosus chronic Reyez's esophagus determined by biopsy acute GERD (gastroesophageal reflux disease) chronic [facility] Work Phone: Evaluation note* Diagnosis Systemic lupus erythematosus, unspecified SLE type, unspecified organ involvement status (Multi) documented in this encounter [facility] Work Phone: Evaluation note* Diagnosis High risk medication use- Primary Sjogren's syndrome, with unspecified organ involvement (Multi) documented in this encounter [facility] Work Phone: Evaluation noteNo assessment information available [facility] Work Phone: Evaluation note* Diagnosis Sjogren's syndrome, with unspecified organ involvement (Multi)- Primary Systemic lupus erythematosus, unspecified SLE type, unspecified organ involvement status (Multi) documented in this encounter [facility] Work Phone: History of Present illness [...] is to start Protonix 20 mg daily. [facility] [address] [facility] Work Phone: History of Present illness Narrative* [...] return at the next available office appointment. [facility] [address] [facility] Work Phone: History of Present illness Narrative* [...] return at the next available office appointment. [id number] Work Phone: History of Present illness Narrative* [...] continue with her previously scheduled follow-up appointment. [id number] [address] [facility] Work Phone: History of Present illness Narrative* [...] return at the next available office appointment. [id number] Work [facility]: Reason for referral (narrative)No reason for referral information availableWPike [facility] Work Phone: Chief Complaint * Follow-up visit * pain in back and knees Systemic Lupus Erythematosus follow-up visitHeadachesHeadachesNPV Numbness of tongue6 month f/u.C/O pain in low back, both knees and both hands. KADEN, SHIELA6 month f/u.C/O pain in low back, both knees and both hands. KADEN, SHIELA6 week f/u. C/O pain in both knees and both hands. SHIELA ALFONSO4 month f/u. C/O pain in both knees and both hands. KADEN, SHIELA Family History No Family History Records FoundUnknown [...] history of hypothyroi dism: Father(V18.19, Z83.49) Status:Active Relationship Condition Age at Onset Recorded Date/T prateek father Cardiac disease Unknown Hypertension Unknown Disorder of thyroid Unknown brother Hypertension Unknown High blood cholesterol Unknown White matter disease Unknown mother Malignant neoplasm Unknown Unknown Family Member Name Dates Details Family history of chronic my eloid leukemia: Mother(V16.6, Z80.6) Status:Active Family history of cardiac di sorder: Father(V17.49, Z82.49) Status:Active Family history of hypertensi on: Father(V17.49, Z82.49) Status:Active Family history of hypothyroi dism: Father(V18.19, Z83.49) Status:Active Relationship Condition Age at Onset Recorded Date/T prateek Not Specified Malignant neoplasm of colon Unknown Malignant neoplasm of bone Unknown father Cardiac disease Unknown Hypertension Unknown Disorder of thyroid Unknown brother Hypertension Unknown High blood cholesterol Unknown White matter disease Unknown mother Malignant neoplasm Unknown Unknown Family Member Name Dates Details Family [...] history of hypothyroi dism: Father(V18.19, Z83.49) Status:Active Relationship Condition Age at Onset Recorded Date/T prateek father Cardiac disease Unknown Hypertension Unknown Disorder of thyroid Unknown brother Hypertension Unknown High blood cholesterol Unknown White matter disease Unknown mother Malignant neoplasm Unknown grandmother Malignant neoplasm of bone Unknown grandfather Malignant neoplasm of colon Unknown Unknown Family Member Name Dates Details Family [...] history of hypothyroi dism: Father(V18.19, Z83.49) Status:Active Advance Directives No Advanced Directives Records Found Advance Directive Response Recorded Date/ Time Living Will No June 06, 2021 8:29pm Power of Canary Raiser No June 06 2 8:29pm Advance Directive Response Recorded Date/ Time Living Will No November 08 11:57am Power of Canary Raiser No November 08 11:57am Advance Directive Response Recorded Date/ Time Living Will No November 08 10:57am Power of Canary Raiser No November 08 10:57am Advance Directive Response Recorded Date/ Time Living Will No September 24, 2022 11:47am Power of Canary Raiser No September 24 3 11:47am Advance Directive Response Recorded Date/ Time Living Will No October 18, 2022 8:16am Power of Canary Raiser No October 18 8:16am Advance Directive Response Recorded Date/ Time Living Will No October 18, 2022 7:16am Power of Canary Raiser No October 18 7:16am Advance Directive Response Recorded Date/ Time Living Will No August 12, 2023 1 0:49am Do you have a Healthcare Power of Canary Raiser? No August 12, 2023 10:49am Living Will No February 28 12:32am Do you have a Healthcare Power of Canary Raiser? No February 29, 2024 12:32am Living Will No May 01 2:31am Do you have a Healthcare Power of Canary Raiser? No May 01, 2024 2:31am Advance Directive Response Recorded Date/ Time Living Will No May 01 2:31am Do you have a Healthcare Power of Canary Raiser? No May 01, 2024 2:31am Advance Directive Response Recorded Date/ Time Living Will No May 01 2:31am Do you have a Healthcare Power of Canary Raiser? No May 01, 2024 2:31am Living Will No June 28, 2024 10:09pm Do you have a Healthcare Power of Canary Raiser? No June 28, 2024 10:09pm Advance Directive Response Recorded Date/ Time Living Will No June 28, 2024 10:09pm Do you have a Healthcare Power of Canary Raiser? No June 28, 2024 10:09pm Chief Complaint and Reason for Visit Chief Complaint CLINICAL NUTRITION MANAGER, EST. CARE -NPP M MG LACERATION, HEAD INJURY EORDER ESOGUARD POISON KACI FU Annual (DISTRICT OPERATIONS MANAGER) Reason for Visit Eye disorder Headache Vertigo Hypothyroidism Systemic lupus erythematosus Irritant contact dermatitis due to plant Abdominal fullness GONZALES (dyspnea on exertion) Early satiety Leukocytosis Chief Complaint CLINICAL NUTRITION MANAGER, EST. CARE -NPP M MG LACERATION, HEAD INJURY EORDER ESOGUARD POISON KACI FU Annual (DISTRICT OPERATIONS MANAGER) ABDOMINAL FULLNESS Reason for Visit Eye disorder Headache Vertigo Hypothyroidism Systemic lupus erythematosus Irritant contact dermatitis due to plant Abdominal fullness GONZALES (dyspnea on exertion) Early satiety Leukocytosis Encounter for routine gynecological examination Chief Complaint ESOGUARD POISON KACI FU Annual (DISTRICT OPERATIONS MANAGER) ABDOMINAL FULLNESS 3 M FU Dysphagia Reason for Visit Abdominal fullness GONZALES (dyspnea on exertion) Early satiety Leukocytosis Encounter for routine gynecological examination Abdominal fullness Anxiety and depression Eye disorder Headache Systemic lupus erythematosus Dysphagia GERD (gastroesophageal reflux disease) Systemic lupus erythematosus Chief Complaint ESOGUARD POISON KACI FU Annual (DISTRICT OPERATIONS MANAGER) ABDOMINAL FULLNESS 3 M FU Dysphagia DYSPHASIA Reason for Visit Abdominal fullness GONZALES (dyspnea on exertion) Early satiety Leukocytosis Encounter for routine gynecological examination Abdominal fullness Anxiety and depression Eye disorder Headache Systemic lupus erythematosus Dysphagia GERD (gastroesophageal reflux disease) Systemic lupus erythematosus Chief Complaint POISON KACI FU Annual (DISTRICT OPERATIONS MANAGER) ABDOMINAL FULLNESS 3 M FU Dysphagia DYSPHASIA DORSALGIA, PAIN IN RIGHT LEG Reason for Visit Abdominal fullness GONZALES (dyspnea on exertion) Early satiety Leukocytosis Encounter for routine gynecological examination Abdominal fullness Anxiety and depression Eye disorder Headache Systemic lupus erythematosus Dysphagia GERD (gastroesophageal reflux disease) Systemic lupus erythematosus Chief Complaint FU Annual (DISTRICT OPERATIONS MANAGER) ABDOMINAL FULLNESS 3 M FU Dysphagia DYSPHASIA DORSALGIA, PAIN IN RIGHT LEG CONCERN FOR UTI 3 M FU Reason for Visit Abdominal fullness GONZALES (dyspnea on exertion) Early satiety Leukocytosis Encounter for routine gynecological examination Abdominal fullness Anxiety and depression Eye disorder Headache Systemic lupus erythematosus Dysphagia GERD (gastroesophageal reflux disease) Systemic lupus erythematosus Dysuria Reyez's esophagus Dysuria Headache Hypokalemia Seasonal affective disorder Chief Complaint Dysphagia DYSPHASIA DORSALGIA, PAIN IN RIGHT LEG CONCERN FOR UTI 3 M FU UNSPECIFIED VISUAL DISTURBANCE E ORDERS Reason for Visit Dysphagia GERD (gastroesophageal reflux disease) Systemic lupus erythematosus Dysuria Reyez's esophagus Dysuria Headache Hypokalemia Seasonal affective disorder Chief Complaint Dysphagia DYSPHASIA DORSALGIA, PAIN IN RIGHT LEG CONCERN FOR UTI 3 M FU UNSPECIFIED VISUAL DISTURBANCE E ORDERS CTS; LUMBAR RADICULOPATHY Reason for Visit Dysphagia GERD (gastroesophageal reflux disease) Systemic lupus erythematosus Dysuria Reyez's esophagus Dysuria Headache Hypokalemia Seasonal affective disorder Chief Complaint DYSPHASIA DORSALGIA, PAIN IN RIGHT LEG CONCERN FOR UTI 3 M FU UNSPECIFIED VISUAL DISTURBANCE E ORDERS CTS; LUMBAR RADICULOPATHY Reason for Visit Dysuria Reyez's esophagus Dysuria Headache Hypokalemia Seasonal affective disorder Chief Complaint CONCERN FOR UTI 3 M FU UNSPECIFIED VISUAL DISTURBANCE E ORDERS CTS; LUMBAR RADICULOPATHY 3 M FU Reason for Visit Dysuria Reyez's esophagus Dysuria Headache Hypokalemia Seasonal affective disorder Hair loss Hypothyroidism Migraine headache Systemic lupus erythematosus Chief Complaint 3 M FU COUGH/FRANCIS/CONGESTION/BILATERAL EAR PAIN/SORE THROAT 1 M FU Reason for Visit Hair loss Hypothyroidism Migraine headache Systemic lupus erythematosus Acute upper respiratory infection Contact with or suspected exposure to other viral communicable disease Migraine headache Systemic lupus erythematosus Chief Complaint 3 M FU COUGH/FRANCIS/CONGESTION/BILATERAL EAR PAIN/SORE THROAT 1 M FU HEADACHE, DIZZINESS, LUPUS Reason for Visit Hair loss Hypothyroidism Migraine headache Systemic lupus erythematosus Acute upper respiratory infection Contact with or suspected exposure to other viral communicable disease Migraine headache Systemic lupus erythematosus New daily persistent headache Hair loss Migraine headache with aura Chief Complaint 3 M FU COUGH/FRANCIS/CONGESTION/BILATERAL EAR PAIN/SORE THROAT 1 M FU HEADACHE, DIZZINESS, LUPUS Urinary tract infection HEADACHES Reason for Visit Hair loss Hypothyroidism Migraine headache Systemic lupus erythematosus Acute upper respiratory infection Contact with or suspected exposure to other viral communicable disease Migraine headache Systemic lupus erythematosus New daily persistent headache Hair loss Migraine headache with aura Urinary tract infection Chief Complaint HEADACHE, DIZZINESS, LUPUS Urinary tract infection HEADACHES Annual (DISTRICT OPERATIONS MANAGER) Reason for Visit New daily persistent headache Hair loss Migraine headache with aura Urinary tract infection Encounter for routine gynecological examination Chief Complaint HEADACHE, DIZZINESS, LUPUS Urinary tract infection HEADACHES Annual (DISTRICT OPERATIONS MANAGER) Postmenopausal bleeding Reason for Visit New daily persistent headache Hair loss Migraine headache with aura Urinary tract infection Encounter for routine gynecological examination Chief Complaint Urinary tract infect ion HEADACHES Annual (DISTRICT OPERATIONS MANAGER) Postmenopausal bleeding D&C 4 M FU Hysteroscopy,Dilation and Curettage Hysteroscopy,Dilation and Curettage SCREENING Reason for Visit Urinary tract infect ion Encounter for routine gynecological examination Postmenopausal bleeding Hair loss Migraine headache with aura Postmenopausal bleeding Chief Complaint Annual (DISTRICT OPERATIONS MANAGER) Postmenopausal bleeding D&C 4 M FU Hysteroscopy,Dilation and Curettage Hysteroscopy,Dilation and Curettage SCREENING LEFT KNEE Room 3 PAIN IN LOWER LEG Reason for Visit Encounter for routin e gynecological examination Postmenopausal bleeding Hair loss Migraine headache with aura Postmenopausal bleeding Calf pain Rupture of plantaris tendon Chief Complaint Annual (DISTRICT OPERATIONS MANAGER) Postmenopausal bleeding D&C 4 M FU Hysteroscopy,Dilation and Curettage Hysteroscopy,Dilation and Curettage SCREENING LEFT KNEE Room 3 PAIN IN LOWER LEG FOLLOW UP INJURY Reason for Visit Encounter for routin e gynecological examination Postmenopausal bleeding Hair loss Migraine headache with aura Postmenopausal bleeding Calf pain Rupture of plantaris tendon Anxiety and depression GERD (gastroesophageal reflux disease) Hypothyroidism Migraine headache Systemic lupus erythematosus Chief Complaint 4 M FU Hysteroscopy,Dilation and Curettage Hysteroscopy,Dilation and Curettage SCREENING LEFT KNEE Room 3 PAIN IN LOWER LEG FOLLOW UP INJURY Reason for Visit Hair loss Migraine headache with aura Postmenopausal bleeding Calf pain Rupture of plantaris tendon Anxiety and depression GERD (gastroesophageal reflux disease) Hypothyroidism Migraine headache Systemic lupus erythematosus Chief Complaint 6 M FU Reason for Visit Hair loss Migraine headache with aura Chief Complaint 6 M FU 6 M FU E ORDERS Reason for Visit Hair loss Migraine headache with aura Health care maintenance Anxiety and depression GERD (gastroesophageal reflux disease) Hypothyroidism Migraine headache Swallowing problem Systemic lupus erythematosus Chief Complaint 6 M FU 6 M FU E ORDERS POST DENITA Reason for Visit Hair loss Migraine headache with aura Health care maintenance Anxiety and depression GERD (gastroesophageal reflux disease) Hypothyroidism Migraine headache Swallowing problem Systemic lupus erythematosus Chief Complaint 6 M FU 6 M FU E ORDERS POST DENITA XEROSTOMIA Reason for Visit Hair loss Migraine headache with aura Health care maintenance Anxiety and depression GERD (gastroesophageal reflux disease) Hypothyroidism Migraine headache Swallowing problem Systemic lupus erythematosus Chief Complaint 6 M FU 6 M FU E ORDERS POST DENITA XEROSTOMIA 2 ORDERING DOCTORS SELF REFERRED- GERD Reason for Visit Hair loss Migraine headache with aura Health care maintenance Anxiety and depression GERD (gastroesophageal reflux disease) Hypothyroidism Migraine headache Swallowing problem Systemic lupus erythematosus Reyez's esophagus determined by biopsy GERD (gastroesophageal reflux disease) Chief Complaint Admit Date S/O EVERY 2 MONTHS April 02, 2024 12 :01pm 8 MO FU April 22, 2024 8 :00am USE LESION MARKER OVER THE NODULE ua 2024 1:06pm S/O EVERY 2 MONTHS June 11, 2024 8:0 4am Reason for Visit Admit Date Hair loss April 22, 2024 8 :00am Migraine headache with aura March 8:00am Chief Complaint Admit Date USE LESION MARKER OVER THE NODULE Februa ry 2024 1:06pm S/O EVERY 2 MONTHS June 11, 2024 8:0 4am SEVERE MIGRAINES June 29, 2024 10:0 0am Reason for Visit Admit Date Hair loss June 29, 2024 10:0 0am Migraine headache with aura June 29 10:00am Chief Complaint Admit Date S/O EVERY 2 MONTHS June 11, 2024 8:0 4am SEVERE MIGRAINES June 29, 2024 10:0 0am S/O EVERY 2 MONTHS September 02, 2024 3:20p m HEAD CONGESTION, CHEST TIGHTNESS September 202024 5:12pm EORDER September 20, 2024 5:19 pm Chief Complaint Admit Date S/O EVERY 2 MONTHS September 02, 2024 3:20p m HEAD CONGESTION, CHEST TIGHTNESS September 202024 5:12pm EORDER September 20, 2024 5:19 pm S/O EVERY 2 MONTHS October 26, 2024 9:49 am Chief Complaint Admit Date S/O EVERY 2 MONTHS September 02, 2024 3:20p m HEAD CONGESTION, CHEST TIGHTNESS September 202024 5:12pm EORDER September 20, 2024 5:19 pm S/O EVERY 2 MONTHS October 26, 2024 9:49 am S/O EVERY 2 MONTHS December 21, 2024 8:55am Summary Purpose Reason for Referral Specialty Diagnoses / Procedures Referred By Contac t Referred To Contact Radiology Diagnoses Screening for osteoporosis Procedures XR DEXA bone density Morgan Lanier MD [address] [employer] [place], [place] [id number] Referral ID Status Reason Start Date Expiration Date Visits Requested Visits Authorized [id number] Pending Review Perform Procedure 06/04/2023 06/03/2024 1 1 Specialty Diagnoses / Procedures Referred By Contac t Referred To Contact Otolaryngology Diagnoses Sjogren's syndrome, with unspecified organ involvement (CMS/[facility]) Morgan Lanier MD [address] [place] [address] Referral ID Status Reason Start Date Expiration Date Visits Requested Visits Authorized [id number] Authorized Specialty Services Required 06/04/2023 06/03/2024 1 1 Additional Source Comments Goals (unrecognized section and content) Goals may be documented in a n alternate sectionGoals may be documented in an alternate sectionGoals may be documented in an alternate sectionGoals may be documented in an alternate sectionGoals may be documented in an alternate sectionGoals may be documented in an alternate sectionGoals may be documented in an alternate sectionGoals may be documented in an alternate sectionGoals may be documented in an alternate sectionGoals may be documented in an alternate sectionGoals may be documented in an alternate sectionGoals may be documented in an alternate sectionGoals may be documented in an alternate sectionGoals may be documented in an alternate sectionGoals may be documented in an alternate sectionGoals may be documented in an alternate sectionGoals may be documented in an alternate sectionGoals may be documented in an alternate sectionGoals may be documented in an alternate sectionGoals may be documented in an alternate sectionGoals may be documented in an alternate sectionGoals may be documented in an alternate sectionGoals may be documented in an alternate sectionGoals may be documented in an alternate sectionGoals may be documented in an alternate section Care Teams (unrecognized sec tion and content) Team Status: Active Member Role Status Dates Dr. Fabián Ruiz DO Family Provider Active Dr. Ruchi Wu MD Primary Care Provider Active Team Status: Inactive Member Role Status Dates Dr. Ruchi Wu MD Primary Care P priya, Attending Provider, Referring Provider Active Team Status: Inactive Member Role Status Dates Dr. Ruchi Wu MD Primary Care Provider, Refer ring Provider Active López AUGUSTE PA Attending Provider Active Team Status: Inactive Member Role Status Dates Dr. Ruchi Wu MD Primary Care Provider Active Dr. Elvis MD Attending Provider, Referring Prov ider Active Team Status: Inactive Member Role Status Dates Dr. Ruchi Wu MD Primary Care Provider Active Dr. Elvis MD Attending Provider Active Team Status: Inactive Member Role Status Dates Dr. Ruchi Wu MD Primary Care Provider Active Dr. Raghu Marsh MD Attending Provider Active Team Status: Inactive Member Role Status Dates Dr. Ruchi Wu MD Primary Care Provider, Refer ring Provider Active Dr. Michael Fontana MD Attending Provider Active Team Status: Inactive Member Role Status Dates Dr. Ruchi Wu MD Primary Care Provider Active Dr. Elvis MD Attending Provider, Referring Prov ider Active Dr. Michael Fontana MD Other Provider Active Team Status: Active Member Role Status Dates Dr. Ruchi Wu MD Primary Care Provider Active Dr. Michael Fontana MD Attending Provider, Referring Provider Active Team Status: Inactive Member Role Status Dates Dr. Ruchi Wu MD Primary Care Provider Active López AUGUSTE PA Attending Provider, Referring Provi johnny Active Team Status: Inactive Member Role Status Dates Dr. Ruchi Wu MD Primary Care Provider Active Dr. Michael Fontana MD Attending Provider, Referring Provider Active Team Status: Inactive Member Role Status Dates Dr. Rcuhi Wu MD Primary Care Provider, Refer ring Provider Active Dr. Irma Bennett DO Attending Provider Activ e Team Status: Active Member Role Status Dates Dr. Ruchi Wu MD Primary Care Provider Active Dr. Irma Bennett DO Attending Provider Activ e Team Status: Inactive Member Role Status Dates Dr. Ruchi Wu MD Primary Care Provider Active Dr. Irma Bennett DO Attending Provider Activ e Team Status: Inactive Member Role Status Dates Dr. Ruchi Wu MD Primary Care Provider Active Dr. Irma Bennett DO Attending Provider, Refe rring Provider Active Team Status: Active Member Role Status Dates Dr. Ruchi Wu MD Primary Care Provider Active Dr. Irma Bennett DO Attending Provider, Referring Provider, Other Provider Active Team Status: Inactive Member Role Status Dates Dr. Ruchi Wu MD Primary Care Provider, Refer ring Provider Active KALYANI Jauregui Attending Provider Active Team Status: Inactive Member Role Status Dates Dr. Ruchi Wu MD Primary Care Provider Active Dr. Mingo Brody MD Attending Provider Active Team Status: Active Member Role Status Dates Dr. Ruchi Wu MD Primary Care Provider Active Dr. Giovany Fonseca MD Attending Provider Active Team Status: Active Member Role Status Dates Dr. Ruchi Wu MD Primary Care Provider Active KALYANI Jauregui Attending Provider, Referring Prov ider Active Team Status: Inactive Member Role Status Dates Dr. Ruchi Wu MD Primary Care Provider Active KALYANI Jauregui Attending Provider, Referring Prov ider Active Team Status: Active Member Role Status Dates Dr. Ruchi Wu MD Primary Care Provider Active Dr. Giovany Fonseca MD Attending Provider Active KALYANI Jauregui Referring Provider Active [employer] Relationship Specialty Start Date End Date Ruchi Wu MD [address] [facility] Internal Medicine [facility] [place] [address] PCP - General 10/02/21 [employer] Relationship Specialty Start Date End Date Ruchi Wu MD [address] [facility] Internal Medicine [facility] [place] [address] PCP - General 10/02/21 Team Status: Inactive Member Role Status Dates Dr. Ruchi Wu MD Primary Care Provider Active Dr. Keaton Noel MD Attending Provider, Referring Pr ovider Active Team Status: Inactive Member Role Status Dates Dr. Ruchi Wu MD Primary Care Provider, Refer ring Provider Active Dr. Andra Bustos MD Attending Provider Active [employer] Relationship Specialty Start Date End Date Ruchi Wu MD [address] [facility] Internal Medicine [facility] [place] [address] PCP - General 10/02/21 Team Status: Active Member Role Status Dates Dr. Ruchi Wu MD Primary Care Provider Active Team Status: Inactive Member Role Status Dates Dr. Ruchi Wu MD Primary Care Provider Active Start: April 02, 2024 End: April 02, 2024 Dr. lEvis MD Attending Provider Active St art: April 02, 2024 End: April 02, 2024 Dr. Elvis MD Referring Provider Active St art: April 02, 2024 End: April 02, 2024 Team Status: Inactive Member Role Status Dates Dr. Ruchi Wu MD Primary Care Provider Active Start: April 22, 2024 End: April 22, 2024 Dr. Ruchi Wu MD Referring Provider Active Start: April 22, 2024 End: April 22, 2024 Dr. Michael Fontana MD Attending Provider Active Start: April 22, 2024 End: April 22, 2024 Team Status: Inactive Member Role Status Dates Dr. Ruchi Wu MD Primary Care Provider Active Start: April 29, 2024 End: April 29, 2024 Dr. Elvis MD Attending Provider Active St art: April 29, 2024 End: April 29, 2024 Dr. Elvis MD Referring Provider Active St art: April 29, 2024 End: April 29, 2024 Team Status: Inactive Member Role Status Dates Dr. Ruchi Wu MD Primary Care Provider Active Start: May 04, 2024 End: May 04, 2024 Dr. Nya Negron DPM Attending Provider Active Start: May 04, 2024 End: May 04, 2024 Dr. Nya Negron DPM Referring Provider Active Start: May 04, 2024 End: May 04, 2024 Team Status: Inactive Member Role Status Dates Dr. Ruchi Wu MD Primary Care Provider Active Start: June 11, 2024 End: June 11, 2024 Dr. Elvis MD Attending Provider Active St art: June 11, 2024 End: June 11, 2024 Dr. Elvis MD Referring Provider Active St art: June 11, 2024 End: June 11, 2024 [employer] Relationship Specialty [place] [address] [place] [address] [place] [address] PCP - General 10/02/21 Team Status: Active Member Role Status Dates Dr. Fabián Ruiz DO Primary Care Provider Active Team Status: Inactive Member Role Status Dates Dr. Ruchi Wu MD Primary Care Provider Active Start: June 29, 2024 End: June 29, 2024 Dr. Ruchi Wu MD Referring Provider Active Start: June 29, 2024 End: June 29, 2024 Dr. Michael Fontana MD Attending Provider Active Start: June 29, 2024 End: June 29, 2024 Team Status: Inactive Member Role Status Dates Dr. Fabián Ruiz DO Primary Care Provider Active Start: August 18, 2024 End: August 18, 2024 Dr. Fabián Ruiz DO Attending Provider Active Start: August 18, 2024 End: August 18, 2024 Dr. Fabián Ruiz DO Referring Provider Active Start: August 18, 2024 End: August 18, 2024 Team Status: Active Member Role Status Dates Dr. Elvis MD Attending Provider Active St art: September 02, 2024 Dr. Elvis MD Referring Provider Active St art: September 02, 2024 Dr. Fabián Ruiz DO Primary Care Provider Active Start: September 02, 2024 Team Status: Inactive Member Role Status Dates Dr. Fabián Ruiz DO Primary Care Provider Active Start: September 20, 2024 End: September 20, 2024 Dr. Fabián Ruiz DO Referring Provider Active Start: September 20, 2024 End: September 20, 2024 Casimiro AUGUSTE PA Attending Provider Active Start: September 20, 2024 End: September 20, 2024 Team Status: Active Member Role Status Dates Dr. Fabián Ruiz DO Primary Care Provider Active Start: September 20, 2024 Casimiro AUGUSTE PA Attending Provider Active Start: September 20, 2024 Casimiro Dc PA PA Referring Provider Active Start: September 20, 2024 Team Status: Inactive Member Role Status Dates Dr. Fabián Ruiz DO Primary Care Provider Active Start: September 20, 2024 End: September 20, 2024 Casimiro AUGUSTE PA Attending Provider Active Start: September 20, 2024 End: September 20, 2024 Casimiro AUGUSTE PA Referring Provider Active Start: September 20, 2024 End: September 20, 2024 Team Status: Active Member Role/Relationship Status Dates Dr. Fabián Ruiz DO Primary Care Provider Active Team Status: Inactive Member Role/Relationship Status Dates Dr. Ruchi Wu MD Primary Care Provider Active Start: June 11, 2024 End: June 11, 2024 Dr. Elvis MD Attending Provider Active St art: June 11, 2024 End: June 11, 2024 Dr. Elvis MD Referring Provider Active St art: June 11, 2024 End: June 11, 2024 Team Status: Inactive Member Role/Relationship Status Dates Dr. Ruchi Wu MD Primary Care Provider Active Start: June 29, 2024 End: June 29, 2024 Dr. Ruchi Wu MD Referring Provider Active Start: June 29, 2024 End: June 29, 2024 Dr. Michael Fontana MD Attending Provider Active Start: June 29, 2024 End: June 29, 2024 Team Status: Inactive Member Role/Relationship Status Dates Dr. Fabián Ruiz DO Primary Care Provider Active Start: August 18, 2024 End: August 18, 2024 Dr. Fabián Ruiz DO Attending Provider Active Start: August 18, 2024 End: August 18, 2024 Dr. Fabián Ruiz DO Referring Provider Active Start: August 18, 2024 End: August 18, 2024 Team Status: Inactive Member Role/Relationship Status Dates Dr. Elvis MD Attending Provider Active St art: September 02, 2024 End: September 02, 2024 Dr. Elvis MD Referring Provider Active St art: September 02, 2024 End: September 02, 2024 Dr. Fabián Ruiz DO Primary Care Provider Active Start: September 02, 2024 End: September 02, 2024 Team Status: Inactive Member Role/Relationship Status Dates Dr. Fabián Ruiz DO Primary Care Provider Active Start: September 20, 2024 End: September 20, 2024 Dr. Fabián Ruiz DO Referring Provider Active Start: September 20, 2024 End: September 20, 2024 Casimiro AUGUSTE PA Attending Provider Active Start: September 20, 2024 End: September 20, 2024 Team Status: Inactive Member Role/Relationship Status Dates Dr. Faibán Ruiz DO Primary Care Provider Active Start: September 20, 2024 End: September 20, 2024 Casimiro AUGUSTE PA Attending Provider Active Start: September 20, 2024 End: September 20, 2024 Casimiro AUGUSTE PA Referring Provider Active Start: September 20, 2024 End: September 20, 2024 Team Status: Inactive Member Role/Relationship Status Dates Dr. Fabián Ruiz DO Primary Care Provider Active Start: August 18, 2024 End: August 18, 2024 Dr. Fabián Ruiz DO Attending Provider Active Start: August 18, 2024 End: August 18, 2024 Dr. Fabián Ruiz DO Referring Provider Active Start: August 18, 2024 End: August 18, 2024 Team Status: Inactive Member Role/Relationship Status Dates Dr. Elvis MD Attending Provider Active St art: September 02, 2024 End: September 02, 2024 Dr. Elvis MD Referring Provider Active St art: September 02, 2024 End: September 02, 2024 Dr. Fabián Ruiz DO Primary Care Provider Active Start: September 02, 2024 End: September 02, 2024 Team Status: Inactive Member Role/Relationship Status Dates Dr. Fabián Ruiz DO Primary Care Provider Active Start: September 20, 2024 End: September 20, 2024 Dr. Fabián Ruiz DO Referring Provider Active Start: September 20, 2024 End: September 20, 2024 KALYANI Mckinley Attending Provider Active Start: September 20, 2024 End: September 20, 2024 Team Status: Inactive Member Role/Relationship Status Dates Dr. Fabián Ruiz DO Primary Care Provider Active Start: September 20, 2024 End: September 20, 2024 KALYANI Mckinley Attending Provider Active Start: September 20, 2024 End: September 20, 2024 KALYANI Mckinley Referring Provider Active Start: September 20, 2024 End: September 20, 2024 Team Status: Inactive Member Role/Relationship Status Dates Dr. Elvis MD Attending Provider Active St art: October 26, 2024 End: October 28, 2024 Dr. Elvis MD Referring Provider Active St art: October 26, 2024 End: October 28, 2024 Dr. Fabián Ruiz DO Primary Care Provider Active Start: October 26, 2024 End: October 28, 2024 [employer] Mush[employer] Relationship Specialty Start Date End Date Ruchi Wu MD [address] [place] [address] [place] [address] PCP - General 10/02/21 Team Status: Inactive Member Role/Relationship Status Dates Dr. Fabián Ruiz DO Primary Care Provider Active Start: November 04, 2024 End: November 04, 2024 Dr. Elvis MD Attending Provider Active St art: November 04, 2024 End: November 04, 2024 Dr. Elvis MD Referring Provider Active St art: November 04, 2024 End: November 04, 2024 Team Status: Active Member Role/Relationship Status Dates Dr. Fabián Ruiz DO Primary care physician Active Team Status: Inactive Member Role/Relationship Status Dates Dr. Elvis MD Attending physician Active S tart: September 02, 2024 End: September 02, 2024 Dr. Elvis MD Referring Provider Active St art: September 02, 2024 End: September 02, 2024 Dr. Fabián Ruiz DO Primary care physician Active Start: September 02, 2024 End: September 02, 2024 Team Status: Inactive Member Role/Relationship Status Dates Dr. Fabián Ruiz DO Primary care physician Active Start: September 20, 2024 End: September 20, 2024 Dr. Fabián Ruiz DO Referring Provider Active Start: September 20, 2024 End: September 20, 2024 KALYANI Mckinley Attending physician Active Start: September 20, 2024 End: September 20, 2024 Team Status: Inactive Member Role/Relationship Status Dates Dr. Fabián Ruiz DO Primary care physician Active Start: September 20, 2024 End: September 20, 2024 KALYANI Mckinley Attending physician Active Start: September 20, 2024 End: September 20, 2024 KALYANI Mckinley Referring Provider Active Start: September 20, 2024 End: September 20, 2024 Team Status: Inactive Member Role/Relationship Status Dates Dr. Elvis MD Attending physician Active S tart: October 26, 2024 End: October 28, 2024 Dr. Elvis MD Referring Provider Active St art: October 26, 2024 End: October 28, 2024 Dr. Fabián Ruiz DO Primary care physician Active Start: October 26, 2024 End: October 28, 2024 Team Status: Inactive Member Role/Relationship Status Dates Dr. Fabián Ruiz DO Primary care physician Active Start: November 04, 2024 End: November 04, 2024 Dr. Elvis MD Attending physician Active S tart: November 04, 2024 End: November 04, 2024 Dr. Elvis MD Referring Provider Active St art: November 04, 2024 End: November 04, 2024 Team Status: Inactive Member Role/Relationship Status Dates Dr. Elvis MD Attending physician Active S tart: December 21, 2024 End: December 28, 2024 Dr. Elvis MD Referring Provider Active St art: December 21, 2024 End: December 28, 2024 Dr. Fabián Ruiz DO Primary care physician Active Start: December 21, 2024 End: December 28, 2024 INFORMATION SOURCE (unrecogn ized section and content) DATE CREATED AUTHOR 12/06/2022 [employer] DATE CREATED AUTHOR AUTHOR'S ORGANIZ ATION 12/11/2022 [facility] DATE CREATED AUTHOR AUTHOR'S ORGANIZ ATION 07/05/2024 [facility] DATE CREATED AUTHOR AUTHOR'S ORGANIZ ATION 12/22/2024 [facility] DATE CREATED AUTHOR AUTHOR'S ORGANIZ ATION 01/14/2025 [facility] Reason for Visit (unrecogniz ed section and content) Reason Comments Follow-up 3 month follow up. C /O pain in both knees, both hands and both hips. Reason Comments Follow-up 3 month fu. C/O pain in both knees and both hands. Reason Comments Follow-up 3 month follow up. C /O pain in both hands, both hips, and both feet. Reason Comments Follow-up 5 month follow up. C /O pain in both hands and both hips. Numbness in face, gland area of neck. Reason Comments Follow-up 4 month fu. C/O pain in both hands, both feet, both hips, both legs and low back. FOR RECORDS PERTAINING TO PATIENTS WHO ARE [...] BE BASED ON THE PRIMARY CLINICAL RECORDS. [employer] provides no warranty or guarantee of the accuracy or completeness of information in this document.
== END | disposition home or self-care (01) ==
LOC: OPBI 14:33
PROVIDERS: PCP Family Medicine; Referring Provider Family Medicine; Visit Provider Family Medicine
DX: Z12.31 Encounter for screening mammogram for malignant neoplasm of breast (principal)
CPT/HCPCS: 77063; 77067

== ENCOUNTER 2025-02-11 08:43 | Outpatient (RCR) | payer BC, SELFPAY ==
[2025-02-11 09:31] LABS: Hematocrit 34.7 % (37-47); Hemoglobin 11.7 g/dL (12.0-15.0); Immature Granulocytes Count 0.000 X10^3/uL (0.0-0.0); Mean Corp Hgb Conc 33.7 g/dL (32-36); Mean Corpuscular Volume 89.0 fL (81-99); Mean Platelet Vol. 12.0 fl (6.2-12.0); NRBC Flagged by Analyzer 0 % (0-5); Platelet Count 244 K/mm3 (150-450); RBC Distribution Width CV 13.2 % (11.6-14.6); RBC Distribution Width SD 43.4 fl (35.1-43.9); Red Blood Count 3.90 M/mm3 (4.2-5.4); White Blood Count 3.6 K/mm3 (4.4-11.0)
[2025-02-11 09:57] LABS: AST(SGOT) 19 U/L (<=31); Alanine Aminotransfer ALT/SGPT 12 U/L (<=34); Albumin, Serum 4.4 g/dL (3.5-5.0); Alkaline Phosphatase 49 U/L (35-104); Anion Gap 9 (5-15); BUN 8 mg/dL (4-19); BUN/Creat Ratio 12.3 RATIO (10-20); CRP < 3.00 mg/L (0.0-3.0); Calcium,Total 9.5 mg/dL (7.6-11.0); Carbon Dioxide 27.6 mmol/L (21.0-32.0); Chloride 98 mmol/L (98-108); Globulin 2.8 g/dL (2.2-4.2); Glucose 95 mg/dL (70-99); Potassium 4.3 mmol/L (3.3-5.1)
== END 2025-02-26 18:00 | disposition home or self-care (01) ==
LOC: LAB 08:43
PROVIDERS: PCP Family Medicine; Referring Provider Internal Medicine Rheumatology; Visit Provider Internal Medicine Rheumatology
DX: M32.9 Systemic lupus erythematosus, unspecified; M35.00 Sjogren syndrome, unspecified
CPT/HCPCS: 36415; 80053; 85025; 86140